=== PATIENT | female | born 1950 | race Caucasian/White ===

== ENCOUNTER 2020-12-17 06:44 | Outpatient (REF) | payer MEDICARE, SELFPAY ==
[2020-12-17 07:20] LABS: MANUAL DIFF FLAG NO
[2020-12-17 07:21] LABS: Basophils Percent Auto 0.6 % (0-2); Eosinophils Absolute Auto 0.1 X10*3/uL (0.0-0.4); Eosinophils Percent Auto 1.8 % (0-4); Hematocrit 40.6 % (37-47); Hemoglobin 13.9 g/dl (12.0-16.0); Imm Gran Abs Auto 0.01 X10*3/uL (0.00-0.03); Imm Gran Pct Auto 0.2 % (0.0-0.4); Lymphocytes Absolute Auto 1.9 X10*3/uL (1.2-4.9); Lymphocytes Percent Auto 38.7 % (20-40); Mean Corpuscular HGB Conc 34.2 g/dl (31.0-35.0); Mean Corpuscular Hemoglobin 34.2 pg (27.0-33.0); Mean Platelet Volume 9.1 fL (9.4-12.3); Monocytes Absolute Auto 0.5 X10*3/uL (0.1-1.2); Monocytes Percent Auto 9.4 % (2-11); Neutrophils Absolute Auto 2.4 X10*3/uL (2.0-8.3); Neutrophils Percent Auto 49.3 % (45-73); Platelet Count 298 X10*3/uL (160-400); Red Blood Count 4.06 X10*6/uL (4.20-5.50); Red Cell Distribution Width 12.5 % (11.0-16.0); White Blood Count 4.9 X10*3/uL (4.8-10.8)
[2020-12-17 08:08] LABS: Alanine Aminotransferase 39 U/L (0-31); Albumin Level 4.3 g/dL (3.5-5.0); Alkaline Phosphatase 94 U/L (39-117); Anion Gap 11 (12-20); Aspartate Amino Transferase 28 U/L (5-31); Bilirubin Total 0.5 mg/dL (0.0-1.0); Blood Urea Nitrogen 13 mg/dL (9-16); Calcium 9.4 mg/dL (8.4-10.2); Carbon Dioxide 26 mmol/L (22-29); Chloride 104 mmol/L (96-108); Cholesterol 234 mg/dL; Estimated Glomerular Filt Rate > 60; Glucose Fasting 101 mg/dL (60-99); HDL Cholesterol 89 mg/dL; LDL Cholesterol Calculated 130 mg/dl; Sodium 137 mmol/L (135-145); Triglycerides 75 mg/dL
[2020-12-17 08:29] LABS: Vitamin D 25-OH Total 50.9 ng/mL (>30)
[2020-12-17 10:41] LABS: Glucose Urine UA NEG (NEG); Leukocyte Esterase Urine TRACE (NEG); Nitrite Urine NEG (NEG); Specific Gravity - Urine 1.015 (1.005-1.025); Urine Blood NEG (NEG); Urine Ketones NEG (NEG); Urine Protein NEG (NEG-TRACE)
[2020-12-17 11:06] LABS: Appearance Urine CLEAR; Color Urine STRAW
[2020-12-17 11:59] LABS: RBC Urine 0 /HPF (0); Renal Epithelial Cells Urine 1+ /LPF; Squamous Epithelial Cell Urine 1+ /LPF; WBC Urine 0-2 /HPF (0-4)
== END 2020-12-17 06:45 | disposition home or self-care (01) ==
LOC: HO.LAB 06:44
PROVIDERS: Visit Provider Internal Medicine
DX: E55.9 Vitamin D deficiency, unspecified (principal); I10 Essential (primary) hypertension; R79.89 Other specified abnormal findings of blood chemistry; R82.994 Hypercalciuria
CPT/HCPCS: 36415; 80053; 80061; 81001; 81003; 82306; 85025

== ENCOUNTER 2021-03-01 12:35 | Outpatient (REF) | payer MEDICARE, SELFPAY ==
--- NOTE | ~2021-03-01 | MM_ITS ---
EXAMINATION: MM SCREENING DIGITAL BREAST TOMOSYNTHESIS, BILATERAL CLINICAL INFORMATION: Screening. Asymptomatic. The lifetime risk of breast cancer based on the Tyrer-Cuzick Model is 4%. COMPARISON: Outside mammography: 12/08/2018, 09/10/2016 ([facility]) TECHNIQUE: Digital breast tomosynthesis is performed in both the craniocaudal and mediolateral oblique views along with computer-aided detection (CAD). Synthesized 2-D images are generated from the tomosynthesis. FINDINGS: There are scattered areas of fibroglandular density (ACR BI-RADS breast composition Category b). There are no significant masses, abnormal calcifications, or other abnormalities. There is a dermal lesion overlying the posterior 7 o'clock position right breast again noted. The axillae are unremarkable. No significant changes. MM/MM tomosynthesis screening BI IMPRESSION: No mammographic evidence of malignancy. ASSESSMENT: BI-RADS 2: Benign. RECOMMENDATION: Routine annual mammography screening. This patient's information was entered into a reminder system with a target due date for their next mammogram.
--- NOTE | ~2021-03-01 | MM_ITS ---
EXAMINATION: BONE DENSITOMETRY CLINICAL INDICATION: Screening for osteoporosis. COMPARISON: Previous BD dated 12/10/2018 and baseline BD dated 06/14/2007. TECHNIQUE: Using a [employer] DXA System (software version: 13.1) manufactured by [employer], dual-energy x-ray absorptiometry was performed of the lumbar spine and left hip. The images are of good technical quality. Summary results are attached. FINDINGS: AP SPINE L1-L4: Current: BMD 0.632 g/cm2, Z-score -2.8, T-score -4.6, osteoporosis, 5.0% decrease from previous, 23.8% decrease from baseline (<5% change is not significant). Prior: BMD 0.665 g/cm2. Baseline: BMD 0.829 g/cm2. LEFT FEMUR, NECK: Current: BMD 0.788 g/cm2, Z-score 0.0, T-score -1.8, osteopenia. Prior: BMD 0.742 g/cm2. Baseline: BMD 0.828 g/cm2. LEFT FEMUR, TOTAL: Current: BMD 0.723 g/cm2, Z-score -0.6, T-score -2.3, osteopenia, 3.6% increase from previous, 9.1% decrease from baseline (<5% change is not significant). Prior: BMD 0.698 g/cm2. Baseline: BMD 0.795 g/cm2. IDENTIFIED RISK FACTORS: Osteoporosis, height loss, family history (parental hip fracture), secondary osteoporosis, menopause, hysterectomy, right oophorectomy. HISTORY OF FRACTURE: None listed. MEDICATIONS: Vitamin D. MM/XR DEXA axial skeleton IMPRESSION: 1. DIAGNOSIS: Osteoporosis based on the lowest T-score value of -4.6 in the lumbar spine applying World Health Organization criteria. 2. 10-YEAR FRACTURE RISK PREDICTION, FRAX: Major osteoporotic fracture (clinical spine, forearm, hip or shoulder) 18.5%. Hip fracture 7.2%. 3. Treatment Recommendations: NOF guidelines recommend consideration for treatment in postmenopausal women and men age 50 and older presenting with the following: -A hip or vertebral (clinical or morphometric) fracture. -T-score less than or equal to -2.5 at the femoral neck or spine after appropriate evaluation to exclude secondary causes. -Low bone mass at the hip or spine and a 10-year fracture probability by FRAX of greater than or equal to 3% for hip fracture or greater than or equal to 20% for major osteoporotic fracture based on the [place] adapted WHO algorithm. 4. Other Recommendations: All treatment decisions require clinical judgment and consideration of individual patient factors, including patient preferences, comorbidities, previous drug use, risk factors not captured in the FRAX model (e.g. frailty, falls, vitamin D deficiency, increased bone turnover, interval significant decline in bone density) and possible under or overestimation of fracture risk by FRAX. Additional medical evaluation for secondary cause of low bone mineral density may be appropriate. FUTURE SCAN RECOMMENDATION: People with diagnosed cases of osteoporosis or at high risk for fracture should have regular bone mineral density tests. For patients eligible for Medicare, routine testing is allowed once every 2 years. The testing frequency can be increased to one year for patients who have rapidly progressing disease, those who are receiving or discontinuing medical therapy to restore bone mass, or have additional risk factors.
== END 2021-03-01 12:36 | disposition home or self-care (01) ==
LOC: HO.MAMMO 12:35
PROVIDERS: Visit Provider Internal Medicine
DX: Z12.31 Encounter for screening mammogram for malignant neoplasm of breast (principal); Z13.820 Encounter for screening for osteoporosis; M81.0 Age-related osteoporosis without current pathological fracture; Z78.0 Asymptomatic menopausal state; Z79.899 Other long term (current) drug therapy; Z98.890 Other specified postprocedural states
CPT/HCPCS: 77063; 77067; 77080

== ENCOUNTER 2021-04-15 06:27 | Day surgery (SDC) | payer MEDICARE, SELFPAY ==
[2021-04-10 08:35] VITALS: BMI 25.2
--- NOTE | 2021-04-12 08:02 | HO.ANESPROP2 ---
Documented by User: Kimberley Walters 04/12/21 08:03 HPI - Anesthesia Eval Consult details Narrative: 70yo F for Colonoscopy PMFSH Past Medical History Medical History GERD (gastroesophageal reflux disease) Hiatal hernia History of kidney stones Osteoporosis Surgical History Surgical History History of blepharoplasty History of esophagogastroduodenoscopy (EGD) History of hammer toe correction Hx of colonoscopy Hx of hysterectomy Social History Social History Do you presently have visiting nurse or other home services: No Patient Tobacco Use Status: Former Tobacco user Use of substances other than those prescribed or required for medical reasons: No Have you been hit, kicked, punched, or otherwise hurt by someone within the past year? If so, by whom?: No Are you DNR?: No Advance Directives: No Advance Directives Information Provided: No Advance Directives on File: No Recently lost weight without trying: No Eating poorly because of decreased appetite: No Nutrition Risks: No Nutritional Risk Patient : No Meds Allergies Allergy/AdvReac Type Severity Reaction Status Date / Time tetracycline [TETRACYCLINE] Allergy Unknown Rash, itchy Unverified 04/10/21 08:24 epinephrine Allergy Unknown heart Uncoded 04/10/21 08:24 palpitations Home Medications Medication Instructions Recorded Confirmed Last Taken Type Lactobacillus acidophilus 10,000 mmu cells PO DAILY 04/10/21 04/10/21 Unknown History [Probiotic] cholecalciferol (vitamin D3) 25 mcg PO DAILY 04/10/21 04/10/21 Unknown History [Vitamin D3] glucosamine-chondroitin ml PO 04/10/21 04/10/21 Unknown History hydrochlorothiazide 1.5 tab PO DAILY 04/10/21 04/10/21 Unknown History ibuprofen [Motrin IB] 400 mg PO Q6H PRN 04/10/21 04/10/21 Unknown History vitamin K2 100 mcg PO DAILY 04/10/21 04/10/21 Unknown History Exam Exam Date and Time: April 12, 2021 0802 Height,Weight and Vital Signs: Height 5 ft 3.75 in Weight 66.224 kg Assessment and Plan Assessment Anesthesia Assessment: Chart Reviewed Documented by User: Margaret Ram 04/15/21 07:26 PMFSH Past Medical History Medical History GERD (gastroesophageal reflux disease) Hiatal hernia History of kidney stones Osteoporosis Family History Family history of problems with anesthesia: No Surgical History Surgical History History of blepharoplasty History of esophagogastroduodenoscopy (EGD) History of hammer toe correction Hx of colonoscopy Hx of hysterectomy History of Problems with Anesthesia: No Social History Social History Do you presently have visiting nurse or other home services: No Patient Tobacco Use Status: Former Tobacco user Use of substances other than those prescribed or required for medical reasons: No Have you been hit, kicked, punched, or otherwise hurt by someone within the past year? If so, by whom?: No Are you DNR?: No Advance Directives: No Advance Directives Information Provided: No Advance Directives on File: No Recently lost weight without trying: No Eating poorly because of decreased appetite: No Nutrition Risks: No Nutritional Risk Patient : No Meds Allergies Allergy/AdvReac Type Severity Reaction Status Date / Time tetracycline [TETRACYCLINE] Allergy Unknown Rash, itchy Unverified 04/10/21 08:24 epinephrine Allergy Unknown heart Uncoded 04/10/21 08:24 palpitations Home Medications Medication Instructions Recorded Confirmed Last Taken Type Lactobacillus acidophilus 10,000 mmu cells PO DAILY 04/10/21 04/10/21 Unknown History [Probiotic] cholecalciferol (vitamin D3) 25 mcg PO DAILY 04/10/21 04/10/21 Unknown History [Vitamin D3] glucosamine-chondroitin ml PO 04/10/21 04/10/21 Unknown History hydrochlorothiazide 1.5 tab PO DAILY 04/10/21 04/10/21 Unknown History ibuprofen [Motrin IB] 400 mg PO Q6H PRN 04/10/21 04/10/21 Unknown History vitamin K2 100 mcg PO DAILY 04/10/21 04/10/21 Unknown History Exam Height,Weight and Vital Signs: Vital Signs Temp Pulse Resp BP Pulse Ox 04/15/21 07:11 97.7 F 78 18 146/92 H 97 Airway Mallampati Class: II TM Dist: >3cm Neck ROM: Full Heart: RRR Lungs: CTAB Assessment and Plan Assessment Anesthesia Assessment: Anesthesia Plan Discussed and Chart Reviewed Final Anesthetic Review NPO: Yes ASA Class: II Final Preanesthetic Review: No Changes in Pt Med Stat, Meds/Allgs Chart Reviewed, Consent Obtained/Reviewed and Anes Risks/Benef Reviewed Patient Risk: Low Procedure Risk: Low Assessment/Block/Sedation in SS: Assess/Block/Sedation-SS Anesthetic Plan Anesthetic Plan: MAC: Disposition: Standard PACU
[2021-04-15 07:11] VITALS: BP 146/92; PULSE 78; RESP 18; TEMP 36.5; O2SAT 97
[2021-04-15] MEDS: Lactated Ringers 1,000 ML 100 ML IVCONT (07:31)
--- NOTE | 2021-04-15 08:22 | P.BOP_ITS ---
Brief Operative Note Date of Service: 04/15/21 Pre-op diagnosis: Screening Post-op diagnosis: other (Colon polyps, Diverticulosis) Procedure: Colonoscopy to the cecum and TI with snare polypectomy, and biopsy and removal of polyp Surgeon: Dany Willis Anesthesia: MAC Was an [employer] used for this Procedure?: No Estimated blood loss (mL): 3.0 Pathology: other (A. Cecal polyps) Condition: stable Disposition: PACU
[2021-04-15 08:23] VITALS: BP 133/59; PULSE 63; RESP 16; TEMP 36.2; O2SAT 100
[2021-04-15 08:36] VITALS: BP 140/70; PULSE 65; RESP 18; O2SAT 99
--- NOTE | 2021-04-15 08:58 | OP_ITS ---
SURGEON: Dany Willis MD INDICATIONS: The patient presents for evaluation of colorectal cancer screening and personal history of tubular adenoma of the colon. Full consent has been obtained from her for this, including risks of bleeding and perforation. PREOPERATIVE DIAGNOSIS: POSTOPERATIVE DIAGNOSIS: PROCEDURE PERFORMED: ESTIMATED BLOOD LOSS: COMPLICATIONS: ANESTHESIA: Preop medication used, monitored anesthesia care. ASSISTANTS: SPECIMENS: PREOPERATIVE DIAGNOSES: Colorectal cancer screening and personal history of tubular adenoma of the colon. POSTOPERATIVE DIAGNOSES: Colorectal cancer screening and personal history of tubular adenoma of the colon, colon polyps, diverticulosis, and internal hemorrhoids. PROCEDURES PERFORMED: Colonoscopy to cecum and terminal ileum with snare polypectomy, and biopsy and removal of polyp. DESCRIPTION OF PROCEDURE: The patient was placed in the left lateral decubitus position. The digital rectal exam revealed no abnormalities. The Olympus video pediatric colonoscope was entered into the rectum and advanced to the cecum with the assistance of abdominal wall pressure. Once in the cecum, I did identify cecal pouch with appendiceal orifice. The terminal ileum was cannulated and appeared normal. The scope was withdrawn back in the colon. The ileocecal valve appeared normal. In the cecum was an approximately 10 mm polyp, which was snared and recovered by suction. The polypectomy site appeared clean, without any sign of residual polyp nor bleeding. Also, in the cecum was an approximately 3 mm polyp, which was biopsied and completely removed with cold biopsy forceps and placed in the same container. The remainder of the cecum appeared normal. The scope was slowly withdrawn assessing all mucosal surfaces carefully. Preparation was excellent. I did not visualize any other polyps, colitis, or angiodysplasia. There was moderate amount of sigmoid diverticulosis. In the rectum, scope was retroflexed visualizing internal hemorrhoids, but no other pathology. The rectal mucosa appeared normal. The scope was straightened and withdrawn from the patient. She tolerated the procedure well and was returned to the recovery area in stable condition. IMPRESSION: 1. Colon polyps, status post snare polypectomy, and biopsy removal. 2. Diverticulosis. 3. Internal hemorrhoids. PLAN: The results of the pathology will be checked. I would recommend a repeat colonoscopy in 5 years. She was advised not to use any aspirin and NSAIDs for 1 week. Dany Willis MD RMW/MODL / [id number]
== END 2021-04-15 09:18 | disposition home or self-care (01) ==
PROVIDERS: PCP Internal Medicine; Visit Provider Internal Medicine
PROC: 0DJD8ZZ Inspection of Lower Intestinal Tract, Via Natural or Artificial Opening Endoscopic (ICD-10-PCS; CPT 45378; principal; 2021-04-15 07:30)
DX: Z12.11 Encounter for screening for malignant neoplasm of colon (principal); Z86.010 Personal history of colon polyps; D12.0 Benign neoplasm of cecum; K57.30 Diverticulosis of large intestine without perforation or abscess without bleeding; K64.8 Other hemorrhoids; K21.9 Gastro-esophageal reflux disease without esophagitis; K44.9 Diaphragmatic hernia without obstruction or gangrene; M81.0 Age-related osteoporosis without current pathological fracture; Z87.442 Personal history of urinary calculi; Z87.891 Personal history of nicotine dependence; Z79.899 Other long term (current) drug therapy; Z79.1 Long term (current) use of non-steroidal anti-inflammatories (NSAID)
CPT/HCPCS: 45385; 45380; 88305

== ENCOUNTER 2021-07-25 10:08 | Outpatient (REF) | payer MEDICARE, SELFPAY ==
[2021-07-25 11:05] LABS: Appearance Urine CLEAR; Color Urine YELLOW; Glucose Urine UA NEG (NEG); Leukocyte Esterase Urine NEG (NEG); Nitrite Urine NEG (NEG); Specific Gravity - Urine <= 1.005 (1.005-1.025); Urine Blood NEG (NEG); Urine Ketones NEG (NEG); Urine Protein NEG (NEG-TRACE)
[2021-07-25 11:15] LABS: RBC Urine 0 /HPF (0); Squamous Epithelial Cell Urine TRACE /LPF; WBC Urine 0-2 /HPF (0-4)
== END 2021-07-25 10:09 | disposition home or self-care (01) ==
LOC: HO.LNP 10:08
PROVIDERS: Visit Provider Internal Medicine
DX: N30.00 Acute cystitis without hematuria (principal)
CPT/HCPCS: 81001; 87086

== ENCOUNTER 2021-09-26 07:36 | Outpatient (REF) | payer MEDICARE, SELFPAY ==
--- NOTE | ~2021-09-26 | US_ITS ---
EXAMINATION: US RIGHT EXTREMITY NONVASCULAR CLINICAL INFORMATION: Question of a right Gordon's cyst. COMPARISON: None TECHNIQUE: Ultrasound of the right popliteal fossa was performed. FINDINGS: The popliteal fossa appears normal. The popliteal artery and vein are unremarkable. No Gordon's cyst is seen. US/US extremity nonvascular IMPRESSION: A Gordon's cyst is not detected.
== END 2021-09-26 07:37 | disposition home or self-care (01) ==
LOC: HO.US 07:36
PROVIDERS: PCP Internal Medicine; Visit Provider Internal Medicine
DX: M71.21 Synovial cyst of popliteal space [Baker], right knee (principal)
CPT/HCPCS: 76882

== ENCOUNTER 2021-10-24 08:08 | Outpatient (REF) | payer MEDICARE, SELFPAY ==
--- NOTE | ~2021-10-24 | FL_ITS ---
EXAMINATION: FL FLUOROSCOPY UPPER GI WITH AIR CLINICAL INFORMATION: Peptic ulcer disease. COMPARISON: CT abdomen and pelvis 09/21/2018. TECHNIQUE: Air-contrast upper GI series was performed using fluoroscopic evaluation in addition to multiple fluoroscopic spot views. The patient was imaged both upright and prone and using thick barium sulfate along with effervescent granules. FINDINGS: Following intravenous administration of thick barium and effervescent granules, there is normal propagation of the bolus from the oral cavity through the pharynx, esophagus and into the stomach without any evidence of obstruction, narrowing or stricture. Mild prominence of the cricoesophageal splinter is noted but causes no obstruction. There is no intrinsic mass or extrinsic compression. On placing the patient supine and prone lying, the course, caliber and peristalsis of the stomach and duodenal bulb are normal. There are moderate gastric secretions seen. There is mild gastroesophageal reflux into the mid esophagus. The mucosal pattern of the stomach and the duodenum is normal. There is no evidence for gastric ulceration. There are mild hypertrophic mucosal cells visualized in the body of the stomach. FLUOROSCOPY TIME: 2.1 minutes DOSE AREA PRODUCT: 24.55 uGy-m2 (microgray-meter squared) FL/FL upper GI w air IMPRESSION: Increased gastric secretions with scattered hypertrophic mucosal cells in the stomach but no gastric erosive changes or ulcerations seen. Mild gastroesophageal reflux without hiatal hernia.
== END 2021-10-24 08:09 | disposition home or self-care (01) ==
LOC: HO.XRAY 08:08
PROVIDERS: Visit Provider Internal Medicine
DX: K27.9 Peptic ulcer, site unspecified, unspecified as acute or chronic, without hemorrhage or perforation (principal); M71.21 Synovial cyst of popliteal space [Baker], right knee
CPT/HCPCS: 74246

== ENCOUNTER 2021-12-26 07:45 | Outpatient (REF) | payer MEDICARE, SELFPAY ==
[2021-12-26 10:57] LABS: MANUAL DIFF FLAG NO
[2021-12-26 11:16] LABS: Basophils Percent Auto 0.8 % (0-2); Eosinophils Absolute Auto 0.1 X10*3/uL (0.0-0.4); Eosinophils Percent Auto 1.6 % (0-4); Hematocrit 38.9 % (37.0-47.0); Hemoglobin 13.2 g/dl (12.0-16.0); Lymphocytes Percent Auto 41.9 % (20-40); Mean Corpuscular HGB Conc 33.9 g/dl (31.0-35.0); Mean Corpuscular Hemoglobin 34.2 pg (27.0-33.0); Mean Corpuscular Volume 100.8 fL (80.0-98.0); Mean Platelet Volume 9.8 fL (9.4-12.3); Monocytes Absolute Auto 0.5 X10*3/uL (0.1-1.2); Monocytes Percent Auto 9.7 % (2-11); Neutrophils Absolute Auto 2.2 x10*3/uL (2.0-8.3); Platelet Count 288 X10*3/uL (160-400); Red Blood Count 3.86 X10*6/uL (4.20-5.50); Red Cell Distribution Width 12.6 % (11.0-16.0); White Blood Count 4.9 X10*3/uL (4.8-10.8)
[2021-12-26 11:27] LABS: Appearance Urine HAZY; Color Urine YELLOW; Glucose Urine UA NEG (NEG); Leukocyte Esterase Urine 2+ (NEG); Nitrite Urine NEG (NEG); Specific Gravity - Urine 1.015 (1.005-1.025); Urine Blood NEG (NEG); Urine Ketones NEG (NEG); Urine Protein NEG (NEG-TRACE)
[2021-12-26 11:30] LABS: Alanine Aminotransferase 34 U/L (0-31); Alkaline Phosphatase 98 U/L (39-117); Anion Gap 11 (12-20); Aspartate Amino Transferase 28 U/L (5-31); Bilirubin Total 0.4 mg/dL (0.0-1.0); Blood Urea Nitrogen 16 mg/dL (9-16); Calcium 9.5 mg/dL (8.4-10.2); Carbon Dioxide 28 mmol/L (22-29); Chloride 102 mmol/L (96-108); Cholesterol 248 mg/dL; Estimated Glomerular Filt Rate > 60; Glucose Random 86 mg/dL (60-115); HDL Cholesterol 80 mg/dL; LDL Cholesterol Calculated 154 mg/dl; Potassium 4.2 mmol/L (3.3-5.1); Sodium 137 mmol/L (135-145); Total Protein 6.6 g/dL (6.5-8.0); Triglycerides 71 mg/dL
[2021-12-26 11:53] LABS: Vitamin D 25-OH Total 50.6 ng/mL (>30)
[2021-12-26 12:15] LABS: Bacteria Urine 2+ /LPF; Mucus Urine 2+ /LPF; RBC Urine 0 /HPF (0); Squamous Epithelial Cell Urine 2+ /LPF
== END 2021-12-26 07:46 | disposition home or self-care (01) ==
LOC: HO.LNP 07:45
PROVIDERS: Visit Provider Internal Medicine
DX: I10 Essential (primary) hypertension (principal); R79.89 Other specified abnormal findings of blood chemistry; E55.9 Vitamin D deficiency, unspecified
CPT/HCPCS: 80053; 80061; 81001; 81003; 82306; 85025

== ENCOUNTER 2022-09-22 10:43 | Outpatient (REF) | payer MEDICARE, SELFPAY ==
--- NOTE | ~2022-09-22 | XR_ITS ---
EXAMINATION: XR CHEST CLINICAL INFORMATION: Reflux esophagitis COMPARISON: Previous chest x-ray November 2016 TECHNIQUE: 2 views of the chest were obtained. FINDINGS: The cardiac and mediastinal contours are stable. The lungs are clear. No pleural effusion or pneumothorax. Scoliosis and degenerative changes of the thoracic spine. XR/XR chest 2V IMPRESSION: No evidence for acute disease in the chest. Scoliosis and degenerative changes of the thoracic spine similar to previous exam.
== END 2022-09-22 10:44 | disposition home or self-care (01) ==
LOC: HO.XRAY 10:43
PROVIDERS: Visit Provider Internal Medicine
DX: K21.00 Gastro-esophageal reflux disease with esophagitis, without bleeding (principal)
CPT/HCPCS: 71046

== ENCOUNTER 2023-01-01 11:02 | Outpatient (REF) | payer MEDICARE, SELFPAY ==
[2023-01-01 11:12] LABS: MANUAL DIFF FLAG NO
[2023-01-01 12:35] LABS: Basophils Percent Auto 0.8 % (0-2); Eosinophils Percent Auto 0.8 % (0-4); Hematocrit 37.6 % (37.0-47.0); Imm Gran Abs Auto 0.01 X10*3/uL (0.00-0.03); Imm Gran Pct Auto 0.2 % (0.0-0.4); Lymphocytes Absolute Auto 1.5 X10*3/uL (1.2-4.9); Lymphocytes Percent Auto 28.5 % (20-40); Mean Corpuscular HGB Conc 34.6 g/dl (31.0-35.0); Mean Corpuscular Hemoglobin 33.9 pg (27.0-33.0); Mean Corpuscular Volume 98.2 fL (80.0-98.0); Mean Platelet Volume 9.5 fL (9.4-12.3); Monocytes Absolute Auto 0.5 X10*3/uL (0.1-1.2); Monocytes Percent Auto 9.7 % (2-11); Neutrophils Absolute Auto 3.2 x10*3/uL (2.0-8.3); Platelet Count 319 X10*3/uL (160-400); Red Blood Count 3.83 X10*6/uL (4.20-5.50); Red Cell Distribution Width 11.8 % (11.0-16.0); White Blood Count 5.3 X10*3/uL (4.8-10.8)
[2023-01-01 12:55] LABS: Alanine Aminotransferase 29 U/L (0-31); Albumin Level 4.1 g/dL (3.5-5.0); Alkaline Phosphatase 87 U/L (39-117); Anion Gap 12 (12-20); Aspartate Amino Transferase 24 U/L (5-31); Bilirubin Total 0.6 mg/dL (0.0-1.0); Blood Urea Nitrogen 11 mg/dL (9-16); Calcium 9.4 mg/dL (8.4-10.2); Carbon Dioxide 26 mmol/L (22-29); Chloride 94 mmol/L (96-108); Cholesterol 259 mg/dL; Estimated Glomerular Filt Rate > 60; Glucose Random 90 mg/dL (60-115); HDL Cholesterol 82 mg/dL; LDL Cholesterol Calculated 163 mg/dl; Potassium 4.3 mmol/L (3.3-5.1); Sodium 128 mmol/L (135-145); Total Protein 6.6 g/dL (6.5-8.0); Triglycerides 71 mg/dL
[2023-01-01 13:15] LABS: Vitamin D 25-OH Total 55.7 ng/mL (>30)
== END 2023-01-01 11:03 | disposition home or self-care (01) ==
LOC: HO.LNP 11:02
PROVIDERS: Visit Provider Internal Medicine
DX: I10 Essential (primary) hypertension (principal); R79.89 Other specified abnormal findings of blood chemistry; E55.9 Vitamin D deficiency, unspecified
CPT/HCPCS: 80053; 80061; 81001; 82306; 85025

== ENCOUNTER 2023-01-08 11:39 | Outpatient (REF) | payer MEDICARE, SELFPAY | END 2023-01-08 11:40 | disposition home or self-care (01) | LOC: HO.XRAY 11:39 | PROVIDERS: PCP Internal Medicine; Visit Provider Internal Medicine | DX: Z13.89 Encounter for screening for other disorder (principal) ==

== ENCOUNTER 2023-01-08 15:55 | Outpatient (REF) | payer MEDICARE, SELFPAY ==
[2023-01-08 16:30] LABS: Appearance Urine Clear; Color Urine Yellow; Glucose Urine UA Negative (Negative); Leukocyte Esterase Urine Negative (Negative); Nitrite Urine Negative (Negative); PH 7.5 (5.0-9.0); Urine Blood Negative (Negative); Urine Ketones Negative (Negative); Urine Protein Negative (Neg-Trace)
== END 2023-01-08 15:56 | disposition home or self-care (01) ==
LOC: HO.LNP 15:55
PROVIDERS: Visit Provider Internal Medicine
DX: I10 Essential (primary) hypertension (principal)
CPT/HCPCS: 81003

== ENCOUNTER 2023-01-14 10:02 | Outpatient (REF) | payer MEDICARE, SELFPAY ==
--- NOTE | ~2023-01-14 | XR_ITS ---
EXAMINATION: XR BILATERAL HIPS WITH AP PELVIS CLINICAL INFORMATION: Hip pain. COMPARISON: None TECHNIQUE: AP view of the pelvis and single views of each hip were obtained. FINDINGS: The bones and soft tissues are normal. No fracture. Sacroiliac and hip joints are normal. There is mild degenerative periarticular spurring along the left hip joint. Pubic symphysis is normal. No abnormal soft tissue calcifications. XR/XR hips TREVOR min 3V IMPRESSION: Mild degenerative spurring along the left hip joint. No visible acute fracture or dislocation seen.
--- NOTE | ~2023-01-14 | FL_ITS ---
EXAMINATION: FL BARIUM SWALLOW CLINICAL INFORMATION: Cough. History of hiatal hernia. COMPARISON: 10/24/2021. TECHNIQUE: Barium swallow examination is performed using fluoroscopic evaluation in addition to multiple fluoroscopic spot views. The patient is imaged both upright and prone and using both thick and thin sulfate along with half-inch diameter barium tablet. Fluoroscopy time: 1.8 minutes DAP: 2.206 Gycm2 Images: 24 FINDINGS: There is normal apposition of the vocal cords while saying E. There is normal elevation of the soft palate while saying candy. No nasopharyngeal reflux or tracheal aspiration identified. There is some mild retention of barium within the left vallecula but no evidence of significant cricopharyngeal hypertrophy or Zenker's diverticulum. There is a minimal sliding hiatal hernia present. No gastroesophageal reflux was elicited during the study, including with water siphon test. No persistent stricture or mucosal abnormality identified within the esophagus. FL/FL barium swallow IMPRESSION: Essentially normal esophagram.
== END 2023-01-14 10:03 | disposition home or self-care (01) ==
LOC: HO.XRAY 10:02
PROVIDERS: Absent Provider Internal Medicine; PCP Internal Medicine; Visit Provider Otolaryngology
DX: R13.10 Dysphagia, unspecified (principal); M25.551 Pain in right hip; M25.552 Pain in left hip
CPT/HCPCS: 73522; 74220

== ENCOUNTER 2023-02-03 15:49 | Outpatient (REF) | payer MEDICARE, SELFPAY ==
[2023-02-03 17:03] LABS: Sodium 130 mmol/L (135-145)
== END 2023-02-03 15:50 | disposition home or self-care (01) ==
LOC: HO.LNP 15:49
PROVIDERS: Visit Provider Internal Medicine
DX: E87.1 Hypo-osmolality and hyponatremia (principal)
CPT/HCPCS: 84295

== ENCOUNTER → 2023-07-10 14:15 | Outpatient (BNV) | payer MEDICARE, SELFPAY | PROVIDERS: PCP Internal Medicine; Visit Provider Radiology Diagnostic Radiology | DX: Z12.31 Encounter for screening mammogram for malignant neoplasm of breast (principal) | CPT/HCPCS: 77063; 77067; 77080 ==

== ENCOUNTER 2023-07-10 14:16 | Outpatient (REF) | payer MEDICARE, SELFPAY ==
--- NOTE | ~2023-07-10 | MM_ITS ---
EXAMINATION: BONE DENSITOMETRY CLINICAL INDICATION: Age-related osteoporosis without current pathological fracture. COMPARISON: Previous BD dated 03/01/2021 and baseline BD dated 06/14/2007. TECHNIQUE: Using a [employer] DXA System (software version: 13.1) manufactured by [employer], dual-energy x-ray absorptiometry was performed of the lumbar spine and left hip. The images are of good technical quality. Summary results are attached. FINDINGS: LEFT FEMUR, NECK: Current: BMD 0.752 g/cm2, Z-score -0.1, T-score -2.1, osteopenia. Prior: BMD 0.788 g/cm2. Baseline: BMD 0.828 g/cm2. LEFT FEMUR, TOTAL: Current: BMD 0.709 g/cm2, Z-score -0.6, T-score -2.4, osteopenia, 1.9% decrease from previous, 10.8% decrease from baseline (<5% change is not significant). Prior: BMD 0.723 g/cm2. Baseline: BMD 0.795 g/cm2. AP SPINE L1-L4: Current: BMD 0.610 g/cm2, Z-score -3.0, T-score -4.8, osteoporosis, 3.5% decrease from previous, 26.4% decrease from baseline (<5% change is not significant). Prior: BMD 0.632 g/cm2. Baseline: BMD 0.829 g/cm2. IDENTIFIED RISK FACTORS: Osteoporosis, right oophorectomy, height loss, family history (parental hip fracture), hysterectomy. Early menopause, secondary osteoporosis. HISTORY OF FRACTURE: None listed. MEDICATIONS: Vitamin D. MM/XR DEXA axial skeleton IMPRESSION: 1. DIAGNOSIS: Osteoporosis based on the lowest T-score value of -4.8 in the lumbar spine applying World Health Organization criteria. 2. 10-YEAR FRACTURE RISK PREDICTION, FRAX: According to the guidelines, FRAX calculation should only be performed on patients in the osteopenia bone density category. Therefore, FRAX was not performed on this patient. 3. Treatment Recommendations: NOF guidelines recommend consideration for treatment in postmenopausal women and men age 50 and older presenting with the following: -A hip or vertebral (clinical or morphometric) fracture. -T-score less than or equal to -2.5 at the femoral neck or spine after appropriate evaluation to exclude secondary causes. -Low bone mass at the hip or spine and a 10-year fracture probability by FRAX of greater than or equal to 3% for hip fracture or greater than or equal to 20% for major osteoporotic fracture based on the [place] adapted WHO algorithm. 4. Other Recommendations: All treatment decisions require clinical judgment and consideration of individual patient factors, including patient preferences, comorbidities, previous drug use, risk factors not captured in the FRAX model (e.g. frailty, falls, vitamin D deficiency, increased bone turnover, interval significant decline in bone density) and possible under or overestimation of fracture risk by FRAX. Additional medical evaluation for secondary cause of low bone mineral density may be appropriate. FUTURE SCAN RECOMMENDATION: People with diagnosed cases of osteoporosis or at high risk for fracture should have regular bone mineral density tests. For patients eligible for Medicare, routine testing is allowed once every 2 years. The testing frequency can be increased to one year for patients who have rapidly progressing disease, those who are receiving or discontinuing medical therapy to restore bone mass, or have additional risk factors.
--- NOTE | ~2023-07-10 | MM_ITS ---
EXAMINATION: MM SCREENING DIGITAL BREAST TOMOSYNTHESIS, BILATERAL CLINICAL INFORMATION: Screening. Asymptomatic. COMPARISON: Mammography: This study is compared with prior exams dating back to 2016. TECHNIQUE: Digital breast tomosynthesis is performed in both the craniocaudal and mediolateral oblique views along with computer-aided detection (CAD). Synthesized 2D images are generated from the tomosynthesis. FINDINGS: There are scattered areas of fibroglandular density (ACR BI-RADS breast composition Category b). There are no significant masses, abnormal calcifications, or other abnormalities. MM/MM tomosynthesis screening BI IMPRESSION: No mammographic evidence of malignancy. ASSESSMENT: BI-RADS BI-RADS 1 - Negative RECOMMENDATION: Routine annual mammography screening. 1 year F/U This examination should not preclude the clinical evaluation of a suspicious palpable abnormality. This patient's information was entered into a reminder system with a target due date for their next mammogram.
== END 2023-07-10 14:17 | disposition home or self-care (01) ==
LOC: HO.MAMMO 14:16
PROVIDERS: PCP Internal Medicine; Visit Provider Internal Medicine
DX: Z12.31 Encounter for screening mammogram for malignant neoplasm of breast (principal); Z13.820 Encounter for screening for osteoporosis; Z78.0 Asymptomatic menopausal state; M81.0 Age-related osteoporosis without current pathological fracture
CPT/HCPCS: 77063; 77067; 77080

== ENCOUNTER 2024-01-04 10:46 | Outpatient (REF) | payer MEDICARE, SELFPAY ==
[2024-01-04 10:51] LABS: MANUAL DIFF FLAG NO
[2024-01-04 11:58] LABS: Basophils Percent Auto 0.8 % (0-2); Eosinophils Absolute Auto 0.1 X10*3/uL (0.0-0.4); Hemoglobin 13.2 g/dl (12.0-16.0); Imm Gran Abs Auto 0.01 X10*3/uL (0.00-0.03); Imm Gran Pct Auto 0.2 % (0.0-0.4); Lymphocytes Absolute Auto 2.1 X10*3/uL (1.2-4.9); Lymphocytes Percent Auto 42.1 % (20-40); Mean Corpuscular HGB Conc 34.7 g/dl (31.0-35.0); Mean Corpuscular Hemoglobin 33.5 pg (27.0-33.0); Mean Corpuscular Volume 96.4 fL (80.0-98.0); Mean Platelet Volume 9.6 fL (9.4-12.3); Monocytes Absolute Auto 0.5 X10*3/uL (0.1-1.2); Monocytes Percent Auto 9.1 % (2-11); Neutrophils Absolute Auto 2.3 x10*3/uL (2.0-8.3); Neutrophils Percent Auto 45.8 % (45-73); Platelet Count 294 X10*3/uL (160-400); Red Blood Count 3.94 X10*6/uL (4.20-5.50); Red Cell Distribution Width 12.8 % (11.0-16.0)
[2024-01-04 11:59] LABS: Appearance Urine Clear; Color Urine Yellow; Glucose Urine UA Negative (Negative); Leukocyte Esterase Urine Negative (Negative); Nitrite Urine Negative (Negative); PH 6.5 (5.0-9.0); Specific Gravity - Urine 1.015 (1.005-1.025); Urine Blood Negative (Negative); Urine Ketones Trace mg/dL (Negative); Urine Protein Negative (Neg-Trace)
[2024-01-04 12:03] LABS: Bacteria Urine None Seen (None Seen); Hyaline Casts Urine 0-2 /LPF (0-2); RBC Urine 0-2 /HPF (0-2); Squamous Epithelial Cell Urine 0-2 /HPF (0-2); WBC Urine 0-5 /HPF (0-5)
[2024-01-04 12:16] LABS: Alanine Aminotransferase 27 U/L (0-31); Albumin Level 4.2 g/dL (3.5-5.0); Alkaline Phosphatase 85 U/L (39-117); Anion Gap 10 (12-20); Aspartate Amino Transferase 19 U/L (5-31); Bilirubin Direct 0.2 mg/dL (0.0-0.5); Bilirubin Total 0.5 mg/dL (0.0-1.0); Blood Urea Nitrogen 15 mg/dL (9-16); Calcium 9.6 mg/dL (8.4-10.2); Carbon Dioxide 26 mmol/L (22-29); Chloride 99 mmol/L (96-108); Cholesterol 264 mg/dL (<200); Estimated Glomerular Filt Rate > 60; Glucose Fasting 90 mg/dL (60-99); HDL Cholesterol 82 mg/dL (>40); LDL Cholesterol Calculated 167 mg/dL (<100); Potassium 3.7 mmol/L (3.3-5.1); Sodium 131 mmol/L (135-145); Total Protein 7.2 g/dL (6.5-8.0); Triglycerides 77 mg/dL (<150)
== END 2024-01-04 10:47 | disposition home or self-care (01) ==
LOC: HO.LNP 10:46
PROVIDERS: Visit Provider Internal Medicine
DX: I10 Essential (primary) hypertension (principal); R79.89 Other specified abnormal findings of blood chemistry; E55.9 Vitamin D deficiency, unspecified
CPT/HCPCS: 80053; 80061; 80076; 81001; 82248; 85025

== ENCOUNTER 2024-04-12 11:40 | Outpatient (REF) | payer MEDICARE, SELFPAY ==
[2024-04-12 12:36] LABS: Sodium 131 mmol/L (135-145)
== END 2024-04-12 11:41 | disposition home or self-care (01) ==
LOC: HO.LNP 11:40
PROVIDERS: Visit Provider Internal Medicine
DX: E78.1 Pure hyperglyceridemia (principal)
CPT/HCPCS: 84295

== ENCOUNTER 2024-06-20 10:32 | Outpatient (REF) | payer MEDICARE, SELFPAY ==
[2024-06-20 10:51] LABS: Sodium 136 mmol/L (135-145)
== END 2024-06-20 10:33 | disposition home or self-care (01) ==
LOC: HO.LNP 10:32
PROVIDERS: Visit Provider Internal Medicine
DX: E87.1 Hypo-osmolality and hyponatremia (principal)
CPT/HCPCS: 84295

== ENCOUNTER 2024-06-24 10:22 | Outpatient (REF) | payer MEDICARE, SELFPAY ==
[2024-06-24 10:46] LABS: Appearance Urine Clear; Color Urine Yellow; Glucose Urine UA Negative (Negative); Leukocyte Esterase Urine Trace (Negative); Nitrite Urine Negative (Negative); UMIC TRIGGER UA YES; Urine Blood Negative (Negative); Urine Ketones Negative (Negative); Urine Protein Negative (Neg-Trace)
[2024-06-24 10:52] LABS: Bacteria Urine None Seen (None Seen); Hyaline Casts Urine 0-2 /LPF (0-2); RBC Urine 0-2 /HPF (0-2); Squamous Epithelial Cell Urine 0-2 /HPF (0-2); WBC Urine 0-5 /HPF (0-5)
== END 2024-06-24 10:23 | disposition home or self-care (01) ==
LOC: HO.LNP 10:22
PROVIDERS: Visit Provider Internal Medicine
DX: R30.0 Dysuria (principal)
CPT/HCPCS: 81001; 87086

== ENCOUNTER 2024-06-30 15:14 | Outpatient (REF) | payer MEDICARE, SELFPAY ==
[2024-06-30 15:19] LABS: MANUAL DIFF FLAG NO
[2024-06-30 15:26] LABS: Basophils Percent Auto 0.2 % (0-2); Eosinophils Percent Auto 0.2 % (0-4); Hematocrit 39.9 % (37.0-47.0); Hemoglobin 13.9 g/dl (12.0-16.0); Imm Gran Abs Auto 0.03 X10*3/uL (0.00-0.03); Imm Gran Pct Auto 0.3 % (0.0-0.4); Lymphocytes Absolute Auto 0.9 X10*3/uL (1.2-4.9); Lymphocytes Percent Auto 9.4 % (20-40); Mean Corpuscular HGB Conc 34.8 g/dl (31.0-35.0); Mean Corpuscular Hemoglobin 34.3 pg (27.0-33.0); Mean Corpuscular Volume 98.5 fL (80.0-98.0); Mean Platelet Volume 10.1 fL (9.4-12.3); Monocytes Absolute Auto 0.7 X10*3/uL (0.1-1.2); Monocytes Percent Auto 7.5 % (2-11); Neutrophils Absolute Auto 7.8 x10*3/uL (2.0-8.3); Neutrophils Percent Auto 82.4 % (45-73); Platelet Count 259 X10*3/uL (160-400); Red Blood Count 4.05 X10*6/uL (4.20-5.50); Red Cell Distribution Width 12.5 % (11.0-16.0); White Blood Count 9.4 X10*3/uL (4.8-10.8)
[2024-06-30 15:39] LABS: Blood Urea Nitrogen 10 mg/dL (9-16); Estimated Glomerular Filt Rate > 60
== END 2024-06-30 15:15 | disposition home or self-care (01) ==
LOC: HO.LNP 15:14
PROVIDERS: Visit Provider Internal Medicine
DX: Z01.812 Encounter for preprocedural laboratory examination (principal); K57.92 Diverticulitis of intestine, part unspecified, without perforation or abscess without bleeding
CPT/HCPCS: 82565; 84520; 85025

== ENCOUNTER 2024-07-22 10:58 | Outpatient (REF) | payer MEDICARE, SELFPAY ==
[2024-07-22 11:31] LABS: Sodium 130 mmol/L (135-145)
== END 2024-07-22 10:59 | disposition home or self-care (01) ==
LOC: HO.LNP 10:58
PROVIDERS: Visit Provider Internal Medicine
DX: E87.1 Hypo-osmolality and hyponatremia (principal)
CPT/HCPCS: 84295

== ENCOUNTER 2024-09-01 11:52 | Outpatient (REF) | payer MEDICARE, SELFPAY ==
[2024-09-01 12:03] LABS: Sodium 137 mmol/L (135-145)
== END 2024-09-01 11:53 | disposition home or self-care (01) ==
LOC: HO.LNP 11:52
PROVIDERS: Visit Provider Internal Medicine
DX: E87.1 Hypo-osmolality and hyponatremia (principal)
CPT/HCPCS: 84295

== ENCOUNTER 2024-09-15 13:35 | Outpatient (AMB) | payer MEDICARE, SELFPAY ==
--- NOTE | 2024-09-15 13:40 | HO.NEPHOV_ITS ---
Vital Signs 09/15/24 13:46 Height 5 ft 3 in Weight 143 lb 2 oz BMI 25.4 BP 160/90 H Blood Pressure Location Lt brachial Position Sitting Pulse 98 Pulse Source Pulse Oximeter Pulse Oximetry (%) 98 Oxygen Delivery Method Room Air Intake Visit Reasons: Hyponatremia/ Essential Hypertension-Conf Business Continuity Coordinator Required: No Accompanied by: Self / Same As Patient Allergies tetracycline [TETRACYCLINE] Allergy (Unknown, Verified 09/15/24 13:45) Rash, itchy epinephrine Allergy (Unknown, Uncoded 08/14/23 14:46) heart palpitations HPI Comments Details: Thank for referring Maday for evaluation hyponatremia and hypertension. She is known to hypertension for a while and has been on hydrochlorothiazide bit she had been taking regularly without much side effects. She also is known to renal calculi. Her blood pressure started getting fluctuant, more so after COVID infection. She had to come off hydrochlorothiazide given hyponatremia. Subsequently she was started on valsartan and the dose of which was maximized. She had been tolerating that without much side effects. Her blood pressure control continue to be suboptimal . She was having intermittent resting tachycardia and chest pressure symptoms without any reason. She was started on metoprolol of the time but she developed emotional lability as well as tiredness and it was discontinued. She has been started on 2.5 mg amlodipine at that time. She has been having some headache/ foggy head which she was attributing to amlodipine. Her blood pressure continues to be uncontrolled. She is not known to have any underlying thyroid disorders. She has no history of renal failure, liver disease or heart failure. She has had hyponatremia remotely. Even at that time she has been on hydrochlorothiazide. She denied any diagnosis of depression but gets anxious at times. She is not known to have any hyperk alemia, edema. She denies drinking excessive fluid or alcohol. She has no history of any malignancy. She feels stressed about her ongoing health complaints [facility] Medical History (Updated 09/15/24 @ 14:45 by Favian Nichols MD) History of kidney stones Hiatal hernia Osteoporosis GERD (gastroesophageal reflux disease) Surgical History (System 08/14/23 @ 14:46 by Brittney Sprague) History of blepharoplasty History of hammer toe correction Hx of hysterectomy History of esophagogastroduodenoscopy (EGD) Hx of colonoscopy Family History (Updated 09/15/24 @ 13:43 by Mahsa Hoffman MA) Mother Hypertension Kidney stone Father Cancer Social History (Updated 09/15/24 @ 13:42 by Mahsa Hoffman MA) Do you presently have visiting nurse or other home services: No Alcohol intake: never Patient Tobacco Use Status: Former Tobacco user Review of Systems Const All systems reviewed & are unremarkable except as noted in HPI and below Physical Exam Const General: comfortable and no acute distress Orientation/consciousness: patient oriented x3 HEENT Head: Yes normocephalic Mouth: Normal oral and palatal mucosa present Eyes EOM: EOMs intact bilaterally Neck Neck: Yes supple Resp Auscultation: clear to auscultation bilaterally Cardio Jugular venous distension: no JVD Rate: regular rate GI Palpation (GI): Soft to palpation Auscultation: normal bowel sounds General: Yes no CVA tenderness Back/Spine/Pelvis Back: no CVA tenderness Skin General skin exam: no rashes or lesions noted Neuro General: patient oriented x3 and moves all extremities Extrem General: Yes no pedal edema Results Reviewed Nephrology Results: Hgb 13.9 g/dl (12.0-16.0) 06/30/24 WBC 9.4 X10*3/uL (4.8-10.8) 06/30/24 Plt Count 259 X10*3/uL (160-400) 06/30/24 Sodium 137 mmol/L (135-145) 09/01/24 Potassium 3.7 mmol/L (3.3-5.1) 01/04/24 Chloride 99 mmol/L (96-108) 01/04/24 Carbon Dioxide 26 mmol/L (22-29) 01/04/24 BUN 10 mg/dL (9-16) 06/30/24 Creatinine 0.73 mg/dL (0.5-1.4) 06/30/24 Calcium 9.6 mg/dL (8.4-10.2) 01/04/24 Urine Protein Negative mg/dL (Neg-Trace) 06/24/24 Assessment & Plan Assessment & Plan (1) Hypertension: Code(s): I10 - Essential (primary) hypertension Category: Medical Qualifiers: Hypertension type: primary hypertension Qualified Code(s): I10 - Essential (primary) hypertension (2) Hyponatremia: Code(s): E87.1 - Hypo-osmolality and hyponatremia Category: Medical (3) Tachycardia: Code(s): R00.0 - Tachycardia, unspecified Category: Medical Plan Maday has longstanding hypertension which is uncontrolled now. She has been having chest pressure and intermittent tachycardia without any reason. Her blood pressure control remains suboptimal after COVID infection. She did not tolerate metoprolol due to development of emotional lability. She is currently on valsartan 320 mg daily. She has been on amlodipine 2.5 mg which I increased to 5 mg daily. She likely will need more antihypertensive medications to keep her blood pressure at goal. I asked her to keep off hydrochlorothiazide for now. She has history of renal calculi. She should restrict her fluid intake to 48 oz in 24 hours. She has strong family history hypertension. She denied any other vascular risk factors or active vascular disease. I have ordered workup for her blood pressure fluctuation. I plan to do a 24 hour ambulatory blood pressure monitor as well as Doppler of her renal arteries with time. She needs a baseline EKG, Holter monitor as well as stress test and echocardiogram. I took the liberty to refer her to a compound filler. I may add diltiazem after discontinuing amlodipine at the next visit(waiting for cardiology consult given cardiac symptoms). I shall continue to work her up and optimize her medications to keep her blood pressure at goal. Time spent retrieving all the data, patient encounter ,documentation, coordinating care included 61 minutes. Answered all questions. Follow-up appointment given. Orders: Orders Aldosterone 1 Week I10 - Essential (primary) hypertension Aldost/Renin 1 Week I10 - Essential (primary) hypertension TSH reflex Free T4 1 Week I10 - Essential (primary) hypertension Sodium Urine Random 1 Week I10 - Essential (primary) hypertension Osmolality Urine 1 Week I10 - Essential (primary) hypertension Metanephrines, Plasma 1 Week I10 - Essential (primary) hypertension Uric Acid Today E87.1 - Hypo-osmolality and hyponatremia, I10 - Essential (primary) hypertension Renin 1 Week I10 - Essential (primary) hypertension Electrolytes 1 Week I10 - Essential (primary) hypertension Cortisol Random 1 Week I10 - Essential (primary) hypertension Immunofixation Pnl, Serum 1 Week I10 - Essential (primary) hypertension Referrals Cardiology Referral R00.0 - Tachycardia, unspecified Coding Level of Care Code New Pt Level 5 (13954) Diagnoses Primary hypertension I10 Hypertension type: primary hypertension Hyponatremia E87.1 Tachycardia R00.0
[2024-09-15 13:46] VITALS: BP 160/90; PULSE 98; O2SAT 98; BMI 25.4
== END 2024-09-15 14:39 | disposition home or self-care (01) ==
LOC: HO.HKAS 13:36
PROVIDERS: PCP Internal Medicine; Referring Provider Internal Medicine; Visit Provider Internal Medicine Nephrology
DX: I10 Essential (primary) hypertension (principal); E87.1 Hypo-osmolality and hyponatremia; R00.0 Tachycardia, unspecified
CPT/HCPCS: 99205

== ENCOUNTER → 2024-09-15 13:35 | Outpatient (BNVA) | payer MEDICARE, SELFPAY | PROVIDERS: PCP Internal Medicine; Referring Provider Internal Medicine; Visit Provider Internal Medicine Nephrology | DX: I10 Essential (primary) hypertension (principal); E87.1 Hypo-osmolality and hyponatremia; R00.0 Tachycardia, unspecified | CPT/HCPCS: 99202 ==

== ENCOUNTER 2024-09-22 11:16 | Outpatient (REF) | payer MEDICARE, SELFPAY ==
[2024-09-22 12:09] LABS: Anion Gap 7 (12-20); Carbon Dioxide 29 mmol/L (22-29); Chloride 105 mmol/L (96-108); Potassium 4.4 mmol/L (3.3-5.1); Sodium 137 mmol/L (135-145)
[2024-09-22 12:34] LABS: TSH reflex Free T4 1.71 uIU/mL (0.32-4.0)
[2024-09-22 13:01] LABS: Osmolality Urine 260 mosm/kg (373-1093)
[2024-09-22 15:19] LABS: Cortisol Random 11.8 ug/dL
[2024-09-22 17:47] LABS: Uric Acid 2.6 mg/dL (2.4-5.7)
[2024-09-27 17:23] LABS: IgA 308 mg/dL (70-320); IgG 842 mg/dL (600-1540); IgM 95 mg/dL (50-300)
[2024-09-29 16:38] LABS: Metanephrine, Free 47 pg/mL (<=57); Normetanephrines, Free 208 pg/mL (<=148); Total Metanephrine, Free 255 pg/mL (<=205)
[2024-09-30 16:44] LABS: Aldosterone/Renin Ratio 0.8 Ratio (0.9-28.9); Plasma Renin Activity 2.58 ng/mL/h (0.25-5.82); Renin 2.86 ng/mL/h (0.25-5.82)
== END 2024-09-22 11:17 | disposition home or self-care (01) ==
LOC: HO.LAB 11:16
PROVIDERS: PCP Internal Medicine; Visit Provider Internal Medicine Nephrology
DX: I10 Essential (primary) hypertension (principal); E87.1 Hypo-osmolality and hyponatremia
CPT/HCPCS: 36415; 80051; 82088; 82533; 82784; 83835; 83935; 84244; 84300; 84443; 84550; 86334

== ENCOUNTER 2024-09-28 13:50 | Outpatient (AMB) | payer MEDICARE, SELFPAY ==
--- NOTE | 2024-09-28 14:04 | HO.NEPHOV_ITS ---
Vital Signs 09/28/24 14:09 Height 5 ft 3 in Weight 141 lb 8 oz BMI 25.1 BP 144/80 H Blood Pressure Location Rt brachial Position Sitting Pulse 95 Pulse Source Pulse Oximeter Pulse Oximetry (%) 98 Oxygen Delivery Method Room Air Intake Visit Reasons: Hyponatremia/ Essential Hypertension-Conf Special Tester Required: No Accompanied by: Self / Same As Patient Allergies tetracycline [TETRACYCLINE] Allergy (Unknown, Verified 09/28/24 14:09) Rash, itchy epinephrine Allergy (Unknown, Uncoded 08/14/23 14:46) heart palpitations HPI Comments Details: Maday was seen for hyponatremia and hypertension. She is known to hypertension for a while and has been on hydrochlorothiazide bit she had been taking regularly without much side effects. She also is known to renal calculi. Her blood pressure started getting fluctuant, more so after COVID infection. She had to come off hydrochlorothiazide given hyponatremia. Subsequently she was started on valsartan and the dose of which was maximized. She had been tolerating that without much side effects. Her blood pressure control continue to be suboptimal . She was having intermittent resting tachycardia and chest pressure symptoms without any reason. She was started on metoprolol of the time but she developed emotional lability as well as tiredness and it was discontinued. She has been started on 2.5 mg amlodipine at that time. She has been having some headache/ foggy head which she was attributing to amlodipine. Her blood pressure continues to be uncontrolled. She is not known to have any underlying thyroid disorders. She has no history of renal failure, liver disease or heart failure. She has had hyponatremia remotely. Even at that time she has been on hydrochlorothiazide. She denied any diagnosis of depression but gets anxious at times. She is not known to have any hyperkalemia, edema. She denies drinking excessive fluid or alcohol. She has no history of any malignancy. Her BP is better regulated with medication adjustment [facility] Medical History (Updated 09/15/24 @ 14:45 by Favian Nichols MD) History of kidney stones Hiatal hernia Osteoporosis GERD (gastroesophageal reflux disease) Surgical History History of blepharoplasty History of hammer toe correction Hx of hysterectomy History of esophagogastroduodenoscopy (EGD) Hx of colonoscopy Family History Mother Hypertension Kidney stone Father Cancer Social History (Updated 09/15/24 @ 13:42 by Mahsa Hoffman MA) Do you presently have visiting nurse or other home services: No Alcohol intake: never Patient Tobacco Use Status: Former Tobacco user Review of Systems Const All systems reviewed & are unremarkable except as noted in HPI and below Physical Exam Const General: comfortable and no acute distress Orientation/consciousness: patient oriented x3 HEENT Head: Yes normocephalic Mouth: Normal oral and palatal mucosa present Eyes EOM: EOMs intact bilaterally Neck Neck: Yes supple Resp Auscultation: clear to auscultation bilaterally Cardio Jugular venous distension: no JVD Rate: regular rate GI Palpation (GI): Soft to palpation Auscultation: normal bowel sounds General: Yes no CVA tenderness Back/Spine/Pelvis Back: no CVA tenderness Skin General skin exam: no rashes or lesions noted Neuro General: patient oriented x3 and moves all extremities Extrem General: Yes no pedal edema Results Reviewed Nephrology Results: Hgb 13.9 g/dl (12.0-16.0) 06/30/24 WBC 9.4 X10*3/uL (4.8-10.8) 06/30/24 Plt Count 259 X10*3/uL (160-400) 06/30/24 Sodium 137 mmol/L (135-145) 09/22/24 Potassium 4.4 mmol/L (3.3-5.1) 09/22/24 Chloride 105 mmol/L (96-108) 09/22/24 Carbon Dioxide 29 mmol/L (22-29) 09/22/24 BUN 10 mg/dL (9-16) 06/30/24 Creatinine 0.73 mg/dL (0.5-1.4) 06/30/24 Calcium 9.6 mg/dL (8.4-10.2) 01/04/24 Urine Protein Negative mg/dL (Neg-Trace) 06/24/24 Assessment & Plan Assessment & Plan (1) Hyponatremia: Code(s): E87.1 - Hypo-osmolality and hyponatremia Category: Medical (2) Hypertension: Code(s): I10 - Essential (primary) hypertension Category: Medical Qualifiers: Hypertension type: primary hypertension Qualified Code(s): I10 - Essential (primary) hypertension Braydon Nassar has longstanding hypertension which is uncontrolled now. She has been having chest pressure and intermittent tachycardia without any reason. Her blood pressure control remains suboptimal after COVID infection. She did not tolerate metoprolol due to development of emotional lability. She is currently on valsartan 320 mg daily. She had been on amlodipine 2.5 mg which I increased to 5 mg daily at the last visit. She likely will need more antihypertensive medications to keep her blood pressure at goal. I asked her to keep off hydrochlorothiazide for now. She has history of renal calculi. She should restrict her fluid intake to 48 oz in 24 hours. She has strong family history hypertension. She denied any other vascular risk factors or active vascular disease. She may need a 24 hour ambulatory blood pressure monitor as well as Doppler of her renal arteries with time, if needed. I switched her Amlodipine to diltiazem 120 mg to be taken at night and Valsartan 320 mg in the morning. Answered all questions. Follow-up appointment given Medications: New diltiazem HCl ER Take it at night 120 mg PO DAILY 30 caps 3RF Coding Level of Care Code Est Pt Level 4 (91429) Diagnoses Hyponatremia E87.1 Primary hypertension I10 Hypertension type: primary hypertension
[2024-09-28 14:09] VITALS: BP 144/80; PULSE 95; O2SAT 98; BMI 25.1
== END 2024-09-28 14:33 | disposition home or self-care (01) ==
PROVIDERS: PCP Internal Medicine; Visit Provider Internal Medicine Nephrology
DX: E87.1 Hypo-osmolality and hyponatremia (principal); I10 Essential (primary) hypertension
CPT/HCPCS: 99214

== ENCOUNTER → 2024-09-28 13:50 | Outpatient (BNVA) | payer MEDICARE, SELFPAY | PROVIDERS: PCP Internal Medicine; Visit Provider Internal Medicine Nephrology | DX: I10 Essential (primary) hypertension (principal); E87.1 Hypo-osmolality and hyponatremia; Z87.442 Personal history of urinary calculi | CPT/HCPCS: 99212 ==

== ENCOUNTER 2024-10-17 11:50 | Outpatient (AMB) | payer MEDICARE, SELFPAY ==
--- NOTE | 2024-10-17 12:09 | HO.NEPHOV ---
Vital Signs 10/17/24 12:10 Height 5 ft 3 in Weight 143 lb 2 oz BMI 25.4 BP 164/90 H Blood Pressure Location Rt brachial Position Sitting Pulse 84 Pulse Source Pulse Oximeter Pulse Oximetry (%) 97 Oxygen Delivery Method Room Air Intake Visit Reasons: Pt request/Not feeling well w/ new med Epic Trainer Required: No Accompanied by: Self / Same As Patient Allergies tetracycline [TETRACYCLINE] Allergy (Unknown, Verified 10/17/24 12:10) Rash, itchy epinephrine Allergy (Unknown, Uncoded 08/14/23 14:46) heart palpitations HPI Comments Details: Maday was seen for hyponatremia and hypertension. She is known to hypertension for a while and has been on hydrochlorothiazide bit she had been taking regularly without much side effects. She also is known to renal calculi. Her blood pressure started getting fluctuant, more so after COVID infection. She had to come off hydrochlorothiazide given hyponatremia. Subsequently she was started on valsartan and the dose of which was maximized. She had been tolerating that without much side effects. Her blood pressure control continue to be suboptimal . She was having intermittent resting tachycardia and chest pressure symptoms without any reason. She was started on metoprolol of the time but she developed emotional lability as well as tiredness and it was discontinued. She has been started on 2.5 mg amlodipine at that time. She has been having some headache/ foggy head which she was attributing to amlodipine. Her blood pressure continued to be uncontrolled, but better with addition of Diltiazem. She is not known to have any underlying thyroid disorders. She has no history of renal failure, liver disease or heart failure. She has had hyponatremia remotely. She denied any diagnosis of depression but gets anxious at times. She is not known to have any hyperkalemia, edema. She denies drinking excessive fluid or alcohol. She has no history of any malignancy. She feels heavy head with questionable dizziness. [facility] Medical History (Updated 09/15/24 @ 14:45 by Favian Nichols MD) History of kidney stones Hiatal hernia Osteoporosis GERD (gastroesophageal reflux disease) Surgical History History of blepharoplasty History of hammer toe correction Hx of hysterectomy History of esophagogastroduodenoscopy (EGD) Hx of colonoscopy Family History Mother Hypertension Kidney stone Father Cancer Social History Do you presently have visiting nurse or other home services: No Alcohol intake: never Patient Tobacco Use Status: Former Tobacco user Review of Systems Const All systems reviewed & are unremarkable except as noted in HPI and below Physical Exam Vital Signs: Last Vital Signs Pulse 84 10/17/24 12:10 BP 164/90 H 10/17/24 12:10 Pulse Ox 97 10/17/24 12:10 Oxygen Delivery Method Room Air 10/17/24 12:10 BMI result Body Mass Index 25.4 Const General: comfortable and no acute distress Orientation/consciousness: patient oriented x3 HEENT Head: Yes normocephalic Mouth: Normal oral and palatal mucosa present Eyes EOM: EOMs intact bilaterally Neck Neck: Yes supple Resp Auscultation: clear to auscultation bilaterally Cardio Jugular venous distension: no JVD Rate: regular rate GI Palpation (GI): Soft to palpation Auscultation: normal bowel sounds General: Yes no CVA tenderness Back/Spine/Pelvis Back: no CVA tenderness Skin General skin exam: no rashes or lesions noted Neuro General: patient oriented x3 and moves all extremities Extrem General: Yes no pedal edema Results Reviewed Nephrology Results: Hgb 13.9 g/dl (12.0-16.0) 06/30/24 WBC 9.4 X10*3/uL (4.8-10.8) 06/30/24 Plt Count 259 X10*3/uL (160-400) 06/30/24 Sodium 137 mmol/L (135-145) 09/22/24 Potassium 4.4 mmol/L (3.3-5.1) 09/22/24 Chloride 105 mmol/L (96-108) 09/22/24 Carbon Dioxide 29 mmol/L (22-29) 09/22/24 BUN 10 mg/dL (9-16) 06/30/24 Creatinine 0.73 mg/dL (0.5-1.4) 06/30/24 Calcium 9.6 mg/dL (8.4-10.2) 01/04/24 Urine Protein Negative mg/dL (Neg-Trace) 06/24/24 Assessment & Plan Assessment & Plan (1) Hypertension: Code(s): I10 - Essential (primary) hypertension Category: Medical Qualifiers: Hypertension type: primary hypertension Qualified Code(s): I10 - Essential (primary) hypertension Plan Maday has longstanding hypertension which is better controlled now, at home. She did not tolerate metoprolol due to development of emotional lability. She is currently on valsartan 320 mg daily. Her HR is better controlled after I initiated Diltiazem. I asked her to keep off hydrochlorothiazide for now. She has history of renal calculi. She should restrict her fluid intake to 48 oz in 24 hours. She has strong family history hypertension. She denied any other vascular risk factors or active vascular disease. I ordered a 24 hour ambulatory blood pressure monitor today. She may need Doppler of her renal arteries with time, if needed.Answered all questions. Follow-up appointment given Orders: Orders AMB 24 HR B/P Monitor PLACEMENT Today I10 - Essential (primary) hypertension Coding Level of Care Code Est Pt Level 4 (55505) Diagnoses Primary hypertension I10 Hypertension type: primary hypertension
[2024-10-17 12:10] VITALS: BP 164/90; PULSE 84; O2SAT 97; BMI 25.4
== END 2024-10-17 12:31 | disposition home or self-care (01) ==
PROVIDERS: PCP Internal Medicine; Visit Provider Internal Medicine Nephrology
DX: I10 Essential (primary) hypertension (principal)
CPT/HCPCS: 99214

== ENCOUNTER → 2024-10-17 11:50 | Outpatient (BNVA) | payer MEDICARE, SELFPAY | PROVIDERS: PCP Internal Medicine; Visit Provider Internal Medicine Nephrology | DX: I10 Essential (primary) hypertension (principal) | CPT/HCPCS: 99212 ==

== ENCOUNTER 2024-10-26 12:05 | Outpatient (AMB) | payer MEDICARE, SELFPAY ==
--- NOTE | 2024-10-26 12:31 | HO.NEPHOV_ITS ---
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 She is known to hypertension for a while and has been on hydrochlorothiazide bit she had been taking regularly without much side effects. She also is known to renal calculi. Her blood pressure started getting fluctuant, more so after COVID infection. She had to come off hydrochlorothiazide given hyponatremia. Subsequently she was started on valsartan and the dose of which was maximized. She had been tolerating that without much side effects. Her blood pressure control continue to be suboptimal . She was having intermittent resting tachycardia and chest pressure symptoms without any reason. She was started on metoprolol of the time but she developed emotional lability as well as tiredness and it was discontinued. She has been started on 2.5 mg amlodipine at that time. She has been having some headache/ foggy head which she was attributing to amlodipine. Her blood pressure continued to be uncontrolled, but better with addition of Diltiazem. She is not known to have any underlying thyroid disorders. She has no history of renal failure, liver disease or heart failure. She has had hyponatremia remotely. She denied any diagnosis of depression but gets anxious at times. She is not known to have any hyperkalemia, edema. She denies drinking excessive fluid or alcohol. She has no history of any malignancy. [facility] Medical History (Updated 09/15/24 @ 14:45 by Favian Nichols MD) History of kidney stones Hiatal hernia Osteoporosis GERD (gastroesophageal reflux disease) Surgical History History of blepharoplasty History of hammer toe correction Hx of hysterectomy History of esophagogastroduodenoscopy (EGD) Hx of colonoscopy Family History Mother Hypertension Kidney stone Father Cancer Social History Do you presently have visiting nurse or other home services: No Alcohol intake: never Patient Tobacco Use Status: Former Tobacco user Review of Systems Const All systems reviewed & are unremarkable except as noted in HPI and below Physical Exam Vital Signs: Last Vital Signs Pulse 61 10/26/24 12:32 BP 150/72 H 10/26/24 12:32 Pulse Ox 99 10/26/24 12:32 Oxygen Delivery Method Room Air 10/26/24 12:32 BMI result Body Mass Index 25.2 Const General: comfortable and no acute distress Orientation/consciousness: patient oriented x3 HEENT Head: Yes normocephalic Mouth: Normal oral and palatal mucosa present Eyes EOM: EOMs intact bilaterally Neck Neck: Yes supple Resp Auscultation: clear to auscultation bilaterally Cardio Jugular venous distension: no JVD Rate: regular rate GI Palpation (GI): Soft to palpation Auscultation: normal bowel sounds General: Yes no CVA tenderness Back/Spine/Pelvis Back: no CVA tenderness Skin General skin exam: no rashes or lesions noted Neuro General: patient oriented x3 and moves all extremities Extrem General: Yes no pedal edema Results Reviewed Nephrology Results: Hgb 13.9 g/dl (12.0-16.0) 06/30/24 WBC 9.4 X10*3/uL (4.8-10.8) 06/30/24 Plt Count 259 X10*3/uL (160-400) 06/30/24 Sodium 137 mmol/L (135-145) 09/22/24 Potassium 4.4 mmol/L (3.3-5.1) 09/22/24 Chloride 105 mmol/L (96-108) 09/22/24 Carbon Dioxide 29 mmol/L (22-29) 09/22/24 BUN 10 mg/dL (9-16) 06/30/24 Creatinine 0.73 mg/dL (0.5-1.4) 06/30/24 Urine Protein Negative mg/dL (Neg-Trace) 06/24/24 Assessment & Plan Assessment & Plan (1) Hyponatremia: Code(s): E87.1 - Hypo-osmolality and hyponatremia Category: Medical (2) Hypertension: Code(s): I10 - Essential (primary) hypertension Category: Medical Qualifiers: Hypertension type: primary hypertension Qualified Code(s): I10 - Essential (primary) hypertension Braydon Nassar has longstanding hypertension which is better controlled now, at home. She did not tolerate metoprolol due to development of emotional lability. She is currently on valsartan 320 mg daily. Her HR is better controlled after I initiated Diltiazem which I increased to 240 mg daily. I asked her to keep off hydrochlorothiazide for now. She has history of renal calculi. She should restrict her fluid intake to 48 oz in 24 hours. She has strong family history hypertension. She denied any other vascular risk factors or active vascular disease. Her 24 hour ambulatory blood pressure monitor was reviewed. She may need Doppler of her renal arteries with time, if needed. Answered all questions. Follow-up appointment given Orders: Orders Electrolytes 3 Weeks E87.1 - Hypo-osmolality and hyponatremia, I10 - Essential (primary) hypertension Coding Level of Care Code Est Pt Level 4 (95680) Diagnoses Hyponatremia E87.1 Primary hypertension I10 Hypertension type: primary hypertension
[2024-10-26 12:32] VITALS: BP 150/72; PULSE 61; O2SAT 99; BMI 25.2
== END 2024-10-26 12:59 | disposition home or self-care (01) ==
PROVIDERS: PCP Internal Medicine; Visit Provider Internal Medicine Nephrology
DX: E87.1 Hypo-osmolality and hyponatremia (principal); I10 Essential (primary) hypertension
CPT/HCPCS: 99214

== ENCOUNTER → 2024-10-26 12:05 | Outpatient (BNVA) | payer MEDICARE, SELFPAY | PROVIDERS: PCP Internal Medicine; Visit Provider Internal Medicine Nephrology | DX: I10 Essential (primary) hypertension (principal); E87.1 Hypo-osmolality and hyponatremia | CPT/HCPCS: 99212 ==

== ENCOUNTER 2024-11-14 12:03 | Outpatient (REF) | payer MEDICARE, SELFPAY ==
[2024-11-14 13:14] LABS: Anion Gap 11 (12-20); Carbon Dioxide 25 mmol/L (22-29); Chloride 105 mmol/L (96-108); Sodium 137 mmol/L (135-145)
== END 2024-11-14 12:04 | disposition home or self-care (01) ==
LOC: HO.10HDL 12:03
PROVIDERS: Visit Provider Internal Medicine Nephrology
DX: I10 Essential (primary) hypertension (principal); E87.1 Hypo-osmolality and hyponatremia
CPT/HCPCS: 36415; 80051

== ENCOUNTER 2024-11-18 13:49 | Outpatient (AMB) | payer MEDICARE, SELFPAY ==
[2024-11-18 13:48] VITALS: BP 130/80; PULSE 102; O2SAT 97; BMI 25.0
--- NOTE | 2024-11-18 13:48 | HO.NEPHOV ---
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 She is known to hypertension for a while and has been on hydrochlorothiazide bit she had been taking regularly without much side effects. She also is known to renal calculi. Her blood pressure started getting fluctuant, more so after COVID infection. She had to come off hydrochlorothiazide given hyponatremia. Subsequently she was started on valsartan and the dose of which was maximized. She had been tolerating that without much side effects. Her blood pressure control continue to be suboptimal . She was having intermittent resting tachycardia and chest pressure symptoms without any reason. She was started on metoprolol of the time but she developed emotional lability as well as tiredness and it was discontinued. She has been started on 2.5 mg amlodipine at that time. She has been having some headache/ foggy head which she was attributing to amlodipine. She is not known to have any underlying thyroid disorders. She has no history of renal failure, liver disease or heart failure. She has had hyponatremia remotely. She denied any diagnosis of depression but gets anxious at times. She is not known to have any hyperkalemia, edema. She denies drinking excessive fluid or alcohol. She has no history of any malignancy. [facility], [facility] Medical History (Updated 09/15/24 @ 14:45 by Favian Nichols MD) History of kidney stones Hiatal hernia Osteoporosis GERD (gastroesophageal reflux disease) Surgical History History of blepharoplasty History of hammer toe correction Hx of hysterectomy History of esophagogastroduodenoscopy (EGD) Hx of colonoscopy Family History Mother Hypertension Kidney stone Father Cancer Social History Do you presently have visiting nurse or other home services: No Alcohol intake: never Patient Tobacco Use Status: Former Tobacco user Review of Systems Const All systems reviewed & are unremarkable except as noted in HPI and below Physical Exam Vital Signs: Last Vital Signs Pulse 102 H 11/18/24 13:48 BP 130/80 11/18/24 13:48 Pulse Ox 97 11/18/24 13:48 Oxygen Delivery Method Room Air 11/18/24 13:48 BMI result Body Mass Index 25.0 Const General: comfortable and no acute distress Orientation/consciousness: patient oriented x3 HEENT Head: Yes normocephalic Mouth: Normal oral and palatal mucosa present Eyes EOM: EOMs intact bilaterally Neck Neck: Yes supple Resp Auscultation: clear to auscultation bilaterally Cardio Jugular venous distension: no JVD Rate: regular rate GI Palpation (GI): Soft to palpation Auscultation: normal bowel sounds General: Yes no CVA tenderness Back/Spine/Pelvis Back: no CVA tenderness Skin General skin exam: no rashes or lesions noted Neuro General: patient oriented x3 and moves all extremities Extrem General: Yes no pedal edema Results Reviewed Nephrology Results: Sodium 137 mmol/L (135-145) 11/14/24 Potassium 4.0 mmol/L (3.3-5.1) 11/14/24 Chloride 105 mmol/L (96-108) 11/14/24 Carbon Dioxide 25 mmol/L (22-29) 11/14/24 Assessment & Plan Assessment & Plan (1) Hypertension: Code(s): I10 - Essential (primary) hypertension Category: Medical Qualifiers: Hypertension type: primary hypertension Qualified Code(s): I10 - Essential (primary) hypertension (2) Hyponatremia: Code(s): E87.1 - Hypo-osmolality and hyponatremia Category: Medical Plan Maday has longstanding hypertension which is better controlled now. She did not tolerate metoprolol due to development of emotional lability. She is currently on valsartan 320 mg daily. Her HR is better controlled after I initiated Diltiazem which I increased to 240 mg daily at the last visit. I asked her to keep off hydrochlorothiazide for now. She has history of renal calculi. She should restrict her fluid intake to 48 oz in 24 hours. She has strong family history hypertension. She denied any other vascular risk factors or active vascular disease. She may need Doppler of her renal arteries with time, if needed. Answered all questions. Follow-up appointment given Coding Level of Care Code Est Pt Level 4 (99127) Diagnoses Primary hypertension I10 Hypertension type: primary hypertension Hyponatremia E87.1
== END 2024-11-18 14:05 | disposition home or self-care (01) ==
PROVIDERS: PCP Internal Medicine; Visit Provider Internal Medicine Nephrology
DX: I10 Essential (primary) hypertension (principal); E87.1 Hypo-osmolality and hyponatremia
CPT/HCPCS: 99214

== ENCOUNTER → 2024-11-18 13:49 | Outpatient (BNVA) | payer MEDICARE, SELFPAY | PROVIDERS: PCP Internal Medicine; Visit Provider Internal Medicine Nephrology | DX: I10 Essential (primary) hypertension (principal); E87.1 Hypo-osmolality and hyponatremia | CPT/HCPCS: 99212 ==

== ENCOUNTER 2024-12-02 11:46 | Outpatient (AMB) | payer MEDICARE, SELFPAY ==
[2024-12-02 11:48] VITALS: BP 152/78; PULSE 91; O2SAT 98; BMI 24.8
--- NOTE | 2024-12-02 11:48 | HO.NEPHOV ---
Vital Signs 12/02/24 11:48 Height 5 ft 3 in Weight 140 lb BMI 24.8 BP 152/78 H Blood Pressure Location Rt brachial Position Sitting Pulse 91 Pulse Source Pulse Oximeter Pulse Oximetry (%) 98 Oxygen Delivery Method Room Air Intake Visit Reasons: Pt req sooner appt/ BP Meds/ Not feeling good Geriatric Physician Required: No Accompanied by: Self / Same As Patient Allergies tetracycline [TETRACYCLINE] Allergy (Unknown, Verified 12/02/24 11:51) Rash, itchy epinephrine Allergy (Unknown, Uncoded 08/14/23 14:46) heart palpitations Medication List - Last Reconciled 12/02/24 by Seven Treadwell MD diltiazem HCl ER 120 mg PO DAILY diltiazem HCl ER 60 mg PO DAILY valsartan 320 mg PO DAILY HPI Comments Details: Maday was seen for hyponatremia and hypertension. She is known to hypertension for a while and has been on hydrochlorothiazide bit she had been taking regularly without much side effects. She also is known to renal calculi. Her blood pressure started getting fluctuant, more so after COVID infection. She had to come off hydrochlorothiazide given hyponatremia. Subsequently she was started on valsartan and the dose of which was maximized. She had been tolerating that without much side effects. Her blood pressure control continue to be suboptimal . She was having intermittent resting tachycardia and chest pressure symptoms without any reason. She was started on metoprolol of the time but she developed emotional lability as well as tiredness and it was discontinued. She has been started on 2.5 mg amlodipine at that time. She has been having some headache/ foggy head which she was attributing to amlodipine. She is not known to have any underlying thyroid disorders. She has no history of renal failure, liver disease or heart failure. She has had hyponatremia remotely. She denied any diagnosis of depression but gets anxious at times. She is not known to have any hyperkalemia, edema. She denies drinking excessive fluid or alcohol. She has no history of any malignancy. 12/02/24 Comes in with lots of questions Says she doesnt feel good HR dropped few times to 39/mt Diltiazem 60mg was added recently in addition to 120 mg She is clearly anxious she had with her blood pressure readings. We reviewed all her medications. Diltiazem could be responds we will for the headaches she is experiencing. In the past she was tried amlodipine which also caused headache. [facility] Medical History (Updated 12/02/24 @ 12:40 by Seven Treadwell MD) Hypertension History of kidney stones Hiatal hernia Osteoporosis GERD (gastroesophageal reflux disease) Surgical History History of blepharoplasty History of hammer toe correction Hx of hysterectomy History of esophagogastroduodenoscopy (EGD) Hx of colonoscopy Family History Mother Hypertension Kidney stone Father Cancer Social History Do you presently have visiting nurse or other home services: No Alcohol intake: never Patient Tobacco Use Status: Former Tobacco user Physical Exam Vital Signs: Last Vital Signs Pulse 91 12/02/24 11:48 BP 152/78 H 12/02/24 11:48 Pulse Ox 98 12/02/24 11:48 Oxygen Delivery Method Room Air 12/02/24 11:48 BMI result Body Mass Index 24.8 Comfortable Neck supple no JVD. Lungs entry equal no rales. Heart S1-S2 heard no gallop or rub. Abdomen soft nontender. Neuro alert awake oriented. No asterixis. Extremities no edema. Repeat blood pressure 170/80 mm Hg sitting Results Reviewed Nephrology Results: Sodium 137 mmol/L (135-145) 11/14/24 Potassium 4.0 mmol/L (3.3-5.1) 11/14/24 Chloride 105 mmol/L (96-108) 11/14/24 Carbon Dioxide 25 mmol/L (22-29) 11/14/24 Assessment & Plan Assessment & Plan (1) Hypertension: Code(s): I10 - Essential (primary) hypertension Category: Medical Qualifiers: Hypertension type: primary hypertension Qualified Code(s): I10 - Essential (primary) hypertension Plan Maday has history of hypertension. She clearly has superimposed white coat effect. In the office today blood pressure increased from 150 up to 170 mm Hg during examination. 24 hour ABP and was also reviewed. It appears that she has since due to various antihypertensive medications. Given the fact that the heart rate dropped to 39 per minute at least twice I will decrease diltiazem from 180 mg down to 120 mg. She should monitor blood pressure at home periodically. Continue to stay on low-sodium diet. Based on home blood pressure readings we can readjust her medications. Given the history of hyponatremia we would certainly avoid thiazide type diuretics. If needed we can add a loop diuretic like furosemide or Bumex to augment the antihypertensive effect of valsartan. Apart from medications she will also benefit from lifestyle modifications including yoga or other relaxation techniques. She will returned to the office in the next few weeks to follow-up with my associate Dr. Nichols Medications: Discontinued diltiazem HCl ER Discontinued Reason: Doctor's Order 60 mg PO DAILY 30 caps 4RF Coding Level of Care Code Est Pt Level 4 (35224) Diagnoses Primary hypertension I10 Hypertension type: primary hypertension
--- OUTSIDE RECORDS SUMMARY | 2024-12-02 13:57 | XMS_ITS ---
Author Organization Spencer Stanley MD Address [address] [place] [phone] Care Team Providers Care Piece Work Checker Name Role Phone Spencer Stanley Primary Care Provider [phone] REASON FOR VISIT 3 month Encounters Encounter Location Date Provider Diagnosis Spencer Stanley MD [address] [place] [address] [address] [place] [phone] 11/04/2024 Spencer Stanley Plan Of Treatment Next Appt Details Provider Name:Spencer correa, 01/05/2025 07:45:00 AM, [address] [place] [address], [address], [phone], Provider Name:Spencer correa, 01/12/2025 09:30:00 AM, [address] [place] [address], [address], [phone], Progress Notes * Maday ARBOLEDA MDOB:[birth year] (74 yo F)Acc No.[id number]:11/04/2024 Progress Notes Patient:Maday CONCEPCION Provider:?Spencer Stanley MD :1950???Age:74 Y???Sex:Female D ate:11/04/2024 Address:[address] [place], [place] [phone] Subjective: * Chief Complaints: * ???1. 3 month. * Medical History:? Objective: * Vitals:? Assessment: Plan: * Treatment: * * The named appointment provid er may or may not be the originator of this progress note, and it is not deemed complete until electronically signed by the appointment provider. Sign off status: Pending * Provider:?Spencer Stanley MD Date:?01/05/2024 Generated for Kwaku hernández/Jameson/Chrissmitting on:?12/02/2024 01:57 PM EST
--- OUTSIDE RECORDS SUMMARY | 2024-12-02 13:57 | XMS_ITS ---
Author Organization Spencer Stanley MD Address [address] [place] [phone] Care Team Providers Care Global Program Manager Name Role Phone Spencer Stanley Primary Care Provider Allergies Allergen (clinical drug ingredient) Drug/Non Drug Allergy documented on EMR Reaction Allergy Type Onset Date Status epinephrine (uncoded) heart palpitations Allergy Active tetracycline tetracycline (uncoded) rash Allergy Active REASON FOR VISIT HBP, BP this afternoon is 177/110 but did not take Diltazen 60mg last night because she does not feel well foggy , Video [phone] Medications Medication SIG (Take, Route, Frequency, Duration) Notes Start Date End Date Status Vistaril 25 MG 1 capsule as needed Orally every 8 hrs as needed for 30 days 2021 Not-Taking Vitamin K (Phytonadione) Not-Taking Valsartan 320 MG 1 tablet Orally Once a day Active Finacea 15 % 1 application Mix Mill Tender ally ONCE A DAY IN THE EVENING [...] Omeprazole 20 MG [facility] 30 MINUTES BEFORE BREAKFAST for 90 Not-Taki ng Melatonin 5 MG 1 tablet at bedtime and a 1mg tablet Orally at bedtime Not-Taking Vitamin D-3 1000 UNIT 1 capsule Orally O nce a day Not-Taking Vital Signs Height 64 in 11/25/2024 eight at home is 144 BP 177/ 110 Encounters Encounter Location Date Provider Diagnosis Spencer Stanley MD [address] [place] [phone] 11/25/2024 Spencer Stanley Essential hypertension I10 Assessments [...] high Next Appt Details Provider Name:Spencer correa, 01/05/2025 07:45:00 AM, [address] [place] [address], [place] [address], [place], [place], [phone], Provider Name:Spencer correa, 01/12/2025 09:30:00 AM, [address] [place] [address], [place] [address], [place], [place], [phone], Progress Notes * Maday ARBOLEDA MDOB:[birth year] (74 yo F)Acc No.[id number]:11/25/2024 Patient:?Maday ARBOLEDA Provider:?Spencer Stanley MD :1950???Age:74 Y???Sex:Female D ate:11/25/2024 Address:[address] [place] [address], [id number] Subjective: * Chief Complaints: * ???1. HBP. 2. BP this aftern oon is 177/110 but did not take Diltazen 60mg last night because she does not feel well foggy . 3. Video [phone]. * HPI: ???Symptom(s):?Telehealth?Location of provider rendering services:?[address], [address],?Location of patient:?at address listed in demographics for today's visit,?Patient identification confirmed using:?Name, , SSN, Insurance information,?Telehealth method:?Video conference where patient is visible to the provider of care,?Consent:?Patient verbally consented to treatment, Patient verbally consented to billing insurance company, Patient informed of any privacy concerns related to method of visit.? patient is a 74 yo female feels badly on her bp meds. headache,stomache ache and tired. skippped the 60 last night and felt better this morning and heart was beating faster and bp was up heart beat up to 110. * ROS:?General/Constitutional:?Denies?Chills.?Denies?Fatigue.?Denies?Fever.?Admits?Headache.?ENT:?Patient denies?decreased sense of smell , any loss of taste , sore throat.?Denies?Sore throat.?Respiratory:?Denies?Cough.?Denies?Shortness of breath at rest.?Denies?Shortness of breath with exertion.?Cardiovascular:?Denies?Chest pain at rest.?Denies?Chest pain with exertion.?Denies?Dizziness.?Denies?Palpitations.?Denies?Shortness of breath.?Gastrointestinal:?Denies?Diarrhea.?Denies?Nausea.?Musculoskeletal:?Patient denies?muscle aches.?Peripheral Vascular:?Patient denies?red and blue toes.? * Medical History:?Can tolerat e doxycycline without difficulty, Refuses flu [id number], colonoscopy 04/2009 - adenoma due in 5 years for upper and lower; colonoscopy and endo done 02/01/[address] Willis (repeat 01/2020), Hysterectomy (has one ovary); no paps only pelvic exam, Tinnitus of left ear, Colonoscopy done 04/29, due in 5 years. * Medications:?Taking dilTIAZe m HCl 60 MG Tablet as directed Orally , Taking Dilt- XR 120 MG Capsule Extended Release 24 Hour 1 capsule Orally Once a day , Taking Finacea 15 % Gel 1 application Externally ONCE A DAY IN THE EVENING , Taking Valsartan 320 MG Tablet 1 tablet Orally Once a day , Not-Taking/PRN Vistaril 25 MG Capsule 1 capsule as needed Orally every 8 hrs as needed , Not-Taking/PRN Vitamin K (Phytonadione) , Not-Taking/PRN Melatonin 5 MG Tablet 1 tablet at bedtime and a 1mg tablet Orally at bedtime , Not-Taking/PRN Vitamin D-3 1000 UNIT Capsule 1 capsule Orally Once a day , Not-Taking/PRN Tylenol 8 Hour Arthritis Pain 650 MG Tablet Extended Release 2 tablets as needed Orally every 8 hrs , Not-Taking/PRN Omeprazole 20 MG Capsule Delayed Release TAKE 1 CAPSULE BY MOUTH EVERY DAY 30 MINUTES BEFORE BREAKFAST , Not-Taking/PRN Econazole Nitrate 1 % Cream 1 application Externally Once a day , Not-Taking/PRN Valtrex 500 MG Tablet 1 tablet Orally every 12 hrs , Medication List reviewed and reconciled with the patient * Allergies:?Tetracycline: Donny h, Epinephrine: Heart Palpitations. Objective: * Vitals:?Ht: 64. eight at home is 144 BP 177/110. * Examination: ???General Examination: ?GENERAL APPEARANCE:?alert, well hydrated, in no distress.?HEAD:?normocephalic.? Assessment: * Assessment: 1.?Essential hypertension - I10 (Primary)??? Plan: * Treatment: * * The named appointment provid er may or may not be the originator of this progress note, and it is not deemed complete until electronically signed by the appointment provider. Sign off status: Pending * Provider:?Spencer Stanley MD Date:?0 11/25/2024 Generated for Kwaku hernández/Jameson/Yousuf on:?12/02/2024 01:56 PM EST History and Physical Notes * HPI (History of Present Illness) Category Sub-Category Detail Notes Category Not es Symptom(s) Telehealth Location of [facility] rendering services:: [address], [address] [...]
--- OUTSIDE RECORDS SUMMARY | 2024-12-02 13:57 | XMS_ITS ---
Author Organization Spencer Stanley MD Address [address] [place] [phone] Care Team Providers Care Safety Instruction Police Officer Name Role Phone Spencer Stanley Primary Care Provider Allergies Allergen (clinical drug ingredient) Drug/Non Drug Allergy documented on EMR Reaction Allergy Type Onset Date Status epinephrine (uncoded) heart palpitations Allergy Active tetracycline tetracycline (uncoded) rash Allergy Active REASON FOR VISIT post nasal drip causing a cough went to Urgent Care last week negative for Flu Covid RSV Medications Medication SIG (Take, Route, Frequency, Duration) Notes Start Date End Date Status Econazole Nitrate 1 % 1 application Exte rnally Once a day for 14 day(s) 10/29/2021 Not-Bashir ing Omeprazole 20 MG TAKE 1 CAPSULE BY [facility] EVERY DAY 30 MINUTES BEFORE BREAKFAST for 90 Not-Taki ng Tylenol 8 Hour Arthritis Pain 650 MG 2 tablets as needed Orally every 8 hrs Not-Taking Vitamin D-3 1000 UNIT 1 capsule Orally O nce a day Not-Taking Valtrex 500 MG 1 tablet Orally ever y 12 hrs for 10 day(s) Not-Taking Finacea 15 % 1 application Cna Ltc ally ONCE A DAY IN THE EVENING Active Melatonin 5 MG 1 tablet at bedtime and a 1mg tablet Orally at bedtime Not-Taking Vitamin K (Phytonadione) Not-Taking Vistaril 25 MG 1 capsule as needed Orally every 8 hrs as needed for 30 days 2021 Not-Taking Valsartan 320 MG 1 tablet Orally Once a day for 30 days Active Dilt-XR 120 MG 1 capsule Orally Onc e a day for 30 days Active dilTIAZem HCl 60 MG as directed Orally Active Vital Signs Blood pressure systolic 172 mm Hg 11/14/19 25 Blood pressure diastolic 80 mm Hg 025 Height 64 in 11/14/2024 Weight 144 lbs 11/14/2024 BMI 24.71 kg/m2 11/14/2024 Encounters Encounter Location Date Provider Diagnosis Spencer Stanley MD [address] [place] [phone] 11/14/2024 Spencer Stanley Viral URI J06.9 Assessments Encounter Date Diagnosis (ICD Code) Assessment Notes Treatment Notes Treatment Clinical Notes Section Notes 11/14/2024 Viral URI (ICD-10 - J06.9) has been getting better. will just observe. no reason for any antibiotics Plan Of Treatment Treatment Notes Assessment Notes Viral URI has been getting bet ter. will just observe. no reason for any antibiotics Next Appt Details Provider Name:Spencer correa, 01/05/2025 07:45:00 AM, [address] [place] [address], [address], [phone], Provider Name:Spencer correa, 01/12/2025 09:30:00 AM, [address] [place] [address], [place] [address], [place], [place], [phone], Progress Notes * Maday ARBOLEDA MDOB:[birth year] (74 yo F)Acc No.[id number]:11/14/2024 Progress Notes Patient:?Maday Arboleda Provider:?Spencer Stanley MD :1950???Age:74 Y???Sex:Female D ate:11/14/2024 Address:[address] [place] [address] [place], [id number] Subjective: * Chief Complaints: * ???post nasal drip causing a cough went to Urgent Care last week negative for Flu Covid RSV * HPI: ???Symptom(s):? had been sick before with a cold. head congestion and no chest congestion. went to urgent care and all rsv covid all negative. * ROS:?General/Constitutional:?Denies?Chills.?Denies?Fatigue.?Denies?Fever.?Denies?Headache.?ENT:?Patient complaining of?c/o post nasal drip causing a cough.?Denies?Sore throat.?Respiratory:?Admits?Cough,?from post nasal drip.?Denies?Shortness of breath at rest.?Denies?Shortness of breath with exertion.?Gastrointestinal:?Denies?Diarrhea.?Denies?Nausea.? * Medical History:? * Surgical History:? * Hospitalization/Major Diagno stic Procedure:? * Medications:?TakingdilTIAZem HCl 60 MG Tablet as directed Orally Dilt-XR 120 MG Capsule Extended Release 24 Hour 1 capsule Orally Once a dayFinacea 15 % Gel 1 application Externally ONCE A DAY IN THE EVENINGValsartan 320 MG Tablet 1 tablet Orally Once a dayTaking dilTIAZem HCl 60 MG Tablet as directed Orally Taking Dilt-XR 120 MG Capsule Extended Release 24 Hour 1 capsule Orally Once a dayTaking Finacea 15 % Gel 1 application Externally ONCE A DAY IN THE EVENINGTaking Valsartan 320 MG Tablet 1 tablet Orally Once a dayNot-Taking/PRNVistaril 25 MG Capsule 1 capsule as needed Orally every 8 hrs as neededVitamin K (Phytonadione) Melatonin 5 MG Tablet 1 tablet at bedtime and a 1mg tablet Orally at bedtimeVitamin D-3 1000 UNIT Capsule 1 capsule Orally Once a dayTylenol 8 Hour Arthritis Pain 650 MG Tablet Extended Release 2 tablets as needed Orally every 8 hrsOmeprazole 20 MG Capsule Delayed Release TAKE 1 CAPSULE BY MOUTH EVERY DAY 30 MINUTES BEFORE BREAKFAST Econazole Nitrate 1 % Cream 1 application Externally Once a dayValtrex 500 MG Tablet 1 tablet Orally every 12 hrsMedication List reviewed and reconciled with the patientNot-Taking/PRN Vistaril 25 MG Capsule 1 capsule as needed Orally every 8 hrs as neededNot-Taking/PRN Vitamin K (Phytonadione) Not-Taking/PRN Melatonin 5 MG Tablet 1 tablet at bedtime and a 1mg tablet Orally at bedtimeNot-Taking/PRN Vitamin D-3 1000 UNIT Capsule 1 capsule Orally Once a dayNot-Taking/PRN Tylenol 8 Hour Arthritis Pain 650 MG Tablet Extended Release 2 tablets as needed Orally every 8 hrsNot-Taking/PRN Omeprazole 20 MG Capsule Delayed Release TAKE 1 CAPSULE BY MOUTH EVERY DAY 30 MINUTES BEFORE BREAKFAST Not- Taking/PRN Econazole Nitrate 1 % Cream 1 application Externally Once a dayNot-Taking/PRN Valtrex 500 MG Tablet 1 tablet Orally every 12 hrsMedication List reviewed and reconciled with the patient * Allergies:?tetracycline: monique hepinephrine: heart palpitationsyes[Allergies Verified] Objective: * Vitals:?Ht: 64, Wt: 144, BMI :24.71, BP:172/80, Repeat BP:122/72, Wt-k.32. * Examination: ???General Examination: ?GENERAL APPEARANCE:?well developed, well nourished.?HEAD:?normocephalic.?SKIN:?good turgor.?HEART:?no murmurs, rubs, gallops , regular rate and rhythm.?LUNGS:?with prolonges expiratory phase no wheeze.? Assessment: * Assessment: 1.?Viral URI - J06.9 (Primar y)? Plan: * Treatment: * Procedure Codes:? * * Sign off status: Completed true * Provider:?Spencer Stanley MD Date:?0 11/14/2024 Generated for Kwaku hernández/Jameson/Yousuf on:?12/02/2024 01:56 PM EST History and Physical Notes * HPI (History of Present Illness) Category Sub-Category Detail Notes Category Not es Symptom(s) had been sick b efore alethea with a cold. head congestion and no chest congestion. went to urgent care and all rsv covid all negative Examination Category Sub-Category Detail Notes Category Not es General Examination GENERAL APPEARANCE: well developed , well nourished HEAD: normocephalic HEART: no murmurs, rubs, ga llops , regular rate and rhythm LUNGS: with prolonges expir atory phase no wheeze SKIN: good turgor
--- OUTSIDE RECORDS SUMMARY | 2024-12-02 13:57 | XMS_ITS | Patient Health Record ---
Author Organization [facility] Address [address] [place] [address] Care Team Providers Care Air/Ocean Export Clerk Name Role Phone Spencer Stanley MD Primary Care Provider Sarabjit Caballero Unavailable [phone] Gurvinder Salguero Unavailable [phone] Allergies Allergen (clinical drug ingredient) Drug/Non Drug Allergy documented on EMR Reaction Allergy Type Onset Date Status Biaxin itchy Drug Allergy Active EPINEPHrine Rapid Heart rate Drug Allergy Active Novocain Rapid Heart rate Drug Allergy Active tetracycline Tetracycline HCl Itching Drug Allergy Active Adhesive Tape rash Drug Allergy Act nilton azithromycin Azithromycin itchy Drug Allergy A ctive erythromycin Erythromycin itchy Drug Allergy A ctive Reason For Referral No Information Medications Medication SIG (Take, Route, Frequency, Duration) Notes Start Date End Date Status Vitamin D 1000 UNIT Orally Not-Taking Probiotic Unknown K2 Plus D3 Not-Takin g Melatonin Not-Taking Vitamin D3 Not-Takin g dilTIAZem HCl ER 60mg Act nilton Valsartan Active Valsartan 160 MG 1 tablet Orally Once a day takes both Not-Taking hydroCHLOROthiazide 12.5 MG Orally Not-Taking Vitamin K2 takes both Not-Taki ng Valsartan-hydroCHLOROthiaz can 320-25 MG 1 tablet Orally Once a day for 30 days Not-Taking Immunizations Vaccine Route Administration Date Status Comme nts COVID-19 Moderna Vaccine Unknown 03/19/2022 Administered 1st 01/08/21 2nd 02/05/21 3rd 09/23/21 Social History Tobacco Use: Social History Observation Description Date Details (start date - stop date) Never Smoker NA - NA Alcohol Screen Question Answer Notes Did you have a drink containing alcohol in the p ast year? No Points 0 Interpretation Negative Tobacco use other than smoking: Question Answer Notes Are you an other tobacco user? No Tobacco Control (Standard) Question Answer Notes Tobacco use: Nonsmoker Problems Problem Type SNOMED Code ICD Code Onset Dates Problem Status W/U Status Risk Notes Problem Plantar wart (13073872) Plantar wart (B07.0) Active confirmed Problem [id number] Onychomycosis (B35.1) Active confirmed Vital Signs Blood pressure diastolic 80 mm Hg 11/15/2024 Height 5 ft 4 in in 11/15/2024 Blood pressure systolic 120 mm Hg 11/15/2024 Weight 142 lbs 11/15/2024 BMI 24.37 kg/m2 11/15/2024 Procedures Procedure Date Ordered Date Performed Result Body Sit e 99916-FFEORTU NAIL, 1-5 11/15/2024 N/A 07759-Orxa Destruction, 1-14 11/15/2024 N/A Encounters Encounter Location Date Provider Diagnosis [address] [phone] 12/07/2023 Gurvinder Salguero Tinea unguium B35.1 ; Skin disease L98.9 ; Ingrowing nail L60.0 ; Neuralgia and neuritis, unspecified M79.2 ; Calcaneal spur, right foot M77.31 ; Primary osteoarthritis, right ankle and foot M19.071 ; Metatarsalgia, right foot M77.41 ; Pain in right foot M79.671 ; Other viral warts B07.8 and Pain in left foot M79.[address] [address] 11/15/2024 Sarabjit Mitra Pain in left toe(s) M79.675 ; Onychomycosis B35.1 ; Right foot pain M79.671 ; Plantar wart B07.0 ; Pain in right ankle and joints of right foot M25.571 ; Bursitis of intermetatarsal bursa of right foot M77.51 and Metatarsalgia, right foot M77.[address] [address] 12/07/[address] [facility] [address] [address] 11/15/2024 Sarabjit Manriquez [facility] [address] [address] 11/17/2024 Sarabjit Manriquez Assessments Encounter Date Diagnosis (ICD Code) Assessment Notes Treatment Notes Treatment Clinical Notes Section Notes 12/07/2023 Tinea unguium (ICD-10 - B35.1) 11/15/2024 Pain in left toe(s) (ICD-10 - M79.675) 11/15/2024 Right foot pain (ICD-10 - M79.671) 11/15/2024 Onychomycosis (ICD-10 - B35.1) 12/07/2023 Skin disease (ICD-10 - L98.9) 12/07/2023 Ingrowing nail (ICD-10 - L60.0) 12/07/2023 Neuralgia and neuritis, unspecified (ICD-10 - M79.2) 11/15/2024 Plantar wart (ICD-10 - B07.0) 11/15/2024 Pain in right ankle and joints of right foot (ICD-10 - M25.571) 12/07/2023 Calcaneal spur, right foot (ICD-10 - M77.31) 12/07/2023 Primary osteoarthritis, right ankle and foot (ICD-10 - M19.071) 11/15/2024 Bursitis of intermetatarsal bursa of right foot (ICD-10 - M77.51) 11/15/2024 Metatarsalgia, right foot (ICD-10 - M77.41) 12/07/2023 Metatarsalgia, right foot (ICD-10 - M77.41) 12/07/2023 Pain in right foot (ICD-10 - M79.671) 12/07/2023 Other viral warts (ICD-10 - B07.8) 12/07/2023 Pain in left foot (ICD-10 - M79.672) Plan Of Treatment Pending Test Test Name Order Date X ray : Foot, right 3V 09/25/2022 [id number] NAIL, 1-5 11/15/2024 [id number]-Jlxp Destruction, 1-14 11/15/2024 95361-Aucmcvul Plate 12/08/2017 66396- Debride <25 sq cm 12/25/2017 Insurance Providers Payer Name Payer Address Payer Phone Subscriber Number Group Number Insured Name Patient Relationship to Insured Coverage Start Date Coverage End Date Medicare [employer] [address] [place] [address] [id number] Maday Draper Self - patient is the insured [employer] [address] [place] [address] [id number] Maday Draper Self - patient is the insured Medical (General) History Medical History History ICD Code Diverticulosis Measles Mumps Chicken pox Osteoporosis Reflux ( GERD) Hypertension Elevated LFTs Vitamin D deficiency Hypercalciuria Tubular adenoma of colon Cataracts Surgical History Surgery Date(Month/Year) hysterectomy 1986 hammer toe 1998
--- OUTSIDE RECORDS SUMMARY | 2024-12-02 13:58 | XMS_ITS ---
Author Organization [facility] Address [address] [facility] [place] [place] [address] Care Team Providers Care Orthophotography Technician Name Role Phone Spencer Stanley MD Primary Care Provider Sarabjit Caballero Unavailable [phone] Allergies Allergen (clinical drug ingredient) Drug/Non Drug [...] erythromycin Erythromycin itchy Drug Allergy A ctive REASON FOR VISIT Painful nail(s) aggravated by shoes causing difficulty standing/walking, Wart(s), Foot pain Medications Medication SIG (Take, Route, Frequency, Duration) Notes Start Date End Date Status Vitamin D 1000 UNIT Orally Not-Taking Probiotic Unknown K2 Plus D3 Not-Takin g Valsartan 160 MG 1 tablet Orally Once a day takes both Not-Taking hydroCHLOROthiazide 12.5 MG Orally Not-Taking Melatonin Not-Taking Vitamin D3 Not-Takin g Valsartan Active Vitamin K2 takes both Not-Taki ng Valsartan-hydroCHLOROthiaz can 320-25 MG 1 tablet Orally Once a day for 30 days Not-Taking dilTIAZem HCl ER 60mg Act nilton Social History Tobacco Use: Social History Observation [...] W/U Status Risk Notes Problem Plantar wart (74429406) Plantar wart (B07.0) Active confirmed Problem 389234915 Onychomycosis (B35.1) Active confirmed Vital Signs Height 5 ft 4 in in 11/15/2024 Weight 142 lbs 11/15/2024 BMI 24.37 kg/m2 11/15/2024 Blood pressure systolic 120 mm Hg 11/15/19 25 Blood pressure diastolic 80 mm Hg 025 Procedures Procedure Date Ordered Date Performed Result Body Sit e 75215-SVAVORM NAIL, 1-11/15/2024 N/A 94166-Phzn Destruction, 11-2211/15/2024 N/A Encounters Encounter Location Date Provider Diagnosis [facility] [address] [address] 11/15/2024 Sarabjit Manriquez Pain in left toe(s) M79.675 ; Onychomycosis B35.1 ; Right foot pain M79.671 ; Plantar wart B07.0 ; Pain in right ankle and joints of right foot M25.571 ; Bursitis of intermetatarsal bursa of right foot M77.51 and Metatarsalgia, right foot M77.41 Assessments Encounter Date Diagnosis (ICD Code) Assessment Notes Treatment Notes Treatment Clinical Notes Section Notes 11/15/2024 Pain in left toe(s) (ICD-10 - M79.675) 11/15/2024 Onychomycosis (ICD-10 - B35.1) 11/15/2024 Right foot pain (ICD-10 - M79.671) 11/15/2024 Plantar wart (ICD-10 - B07.0) 11/15/2024 Pain in right ankle and joints of right foot (ICD-10 - M25.571) 11/15/2024 Bursitis of intermetatarsal bursa of right foot (ICD-10 - M77.51) 11/15/2024 Metatarsalgia, right foot (ICD-10 - M77.41) Plan Of Treatment Pending Test Test Name Order Date 61311-YETXQTK NAIL, 1-5 11/15/2024 40180-Vmpd Destruction, 1-11/15/2024 Next Appt Details Follow Up: prn, Reason: Procedure Notes * Category Sub-Category Detail Notes Wart Treatment Procedure Verruca, as desc ribed in exam, were debrided to pin-point bleeding margins with sterile 15 surgical blade, silver nitrate chemocautery applied, recomm. immune-boosting meds such as zinc, recomm. follow up with topical chemosurgical agents, Pt defers any other forms of tx - 57880 Debride Nails 1-5 Procedure: Due to the cli nical pathology outlined in the exam findings, performance of this nail treatment is medically necessary as its management by an unskilled/untrained nonprofessional would put this patients foot and overall health at risk. Therefore, debridement to affected nail(s), as described in exam ( 1), was performed exclusively by the physician of record to reduce/remove overall nail length, girth, thickness, subungual debris, and necrotic tissue, by manual and/or electrical means through the use of a nail nipper and/or dremel stylegrinder, to a more viable healthy nail plate or bed tissue 5 nails or fewer in number. Silver nitrate was used for any petechial bleeding as necessary. Definitive antifungal treatment options, both pharmaceutical and surgical, have been reviewed and discussed with the patient. The patient solely prefers the use of intermittent/as needed professional debridement services for their nail condition and understands that additional periodic treatments may be required as necessary to maintain effective symptomatic relief - 32435 Progress Notes * Maday ARBOLEDA MDOB:[birth year] (74 yo F)Acc No.[id number]:11/15/2024 Progress Note Patient:?Maday ARBOLEDA Provider:?Sarabjit Manriquez DPM :1950???Age:74 Y???Sex:Female D ate:11/15/2024 Address:[address] [place] [address], [place], [id number] Pcp:Spencer Stanley MD Subjective: * Chief Complaints: * ???Painful nail(s) aggravate d by shoes causing difficulty standing/walkingWart(s)Foot pain * HPI: ???Painful Nails:?Pt States Last PCP Visit:?Date:?11/14/2024 ???Foot Pain:?Location:?Bottom, Forefoot, RIGHT.?Duration:?several weeks.?Course:?worse.?Treatments:?rest/alter normal daily activity, innersoles.? * ROS:?General/Constitutional:?Nausea?denies, denies.?Vomiting?denies, denies.?Hunger Thirst?denies, denies.?Loss appetite?denies, denies.?Chills?denies, denies.?Fatigue?denies, denies.?Fever?denies, denies.?Night Sweats denies, denies.?Unexplained weight loss?denies, denies.?Unexplained weight gain?denies, denies.?HEENTM:?Dentures?denies, denies.?Dizziness?denies, denies.?Glasses/contacts?admits.?Retinopathy?denies, denies.?Blurred/double vision?denies, denies.?TMJ?denies, denies.?Discharge/drainage?denies, denies. Implants?denies, denies.?Sore throat?denies, denies.?Dental implants?admits.?Hard of hearing ?denies, denies.?Difficulty chewing/swallowing/speaking?denies, denies.?Nose bleeds?denies, denies.?Sore mouth?denies, denies.?Respiratory:?On Oxygen?denies, denies.?Pneumonia/pleurisy?denies, denies.?Bronchitis?denies, denies.?Emphysema?denies, denies.?Coughing?denies, denies.?Cough blood?denies, denies.?Shortness of breath?denies, denies.?Wheezing?denies, denies.?Cardiovascular:?Pacemaker?denies, denies.?MVP?denies, denies.?WPW?denies, denies.?CHF?denies, denies.?Heart attack?denies, denies.?Septal defect?denies, denies.?Rapid beat?denies, denies.?Chest pain ?denies, denies.?Atrial Fib.?denies, denies.?Murmur/Palpitations?denies, denies.?Gastrointestinal:?Hemorrhoids?denies, denies.?Stomach/Abdominal pain?denies, denies.?Dark blood stool?denies, denies.?Irritable bowel ?denies, denies.?Constipation?denies, denies.?Diarrhea?denies, denies.?Hematology:?Swelling?denies, denies.?Clots?denies, denies.?Varicose Veins?denies, denies.?Bruising?denies, denies.?Bleeding problem?denies, denies.?Genitourinary:?Blood urine?denies, denies.?Frequent/Painfu/urination/bladder control?denies, denies.?Kidney stones?admits.?Infection (UTI)?denies, denies.?Nephropathy?denies, denies.?sex trans dis (STD)?denies, denies.?Prostate?denies, denies.?Musculoskeletal:?Hammertoes?denies, denies.?Bunions?denies, denies.?Back Pain?denies, denies.?Muscle Cramps/ Resting?denies, denies.?Muscle cramps / walking?denies, denies.?Generalized aches and pains?denies, denies.?Weakness?denies, denies.?Integ.:?[place]?denies, denies.?Scars?denies, denies.?Corns/calluses?denies, denies.?Ingrown nails?denies, denies.?Painful nails?denies, denies.?Open Sores?denies, denies.?Rashes?denies, denies.?Neurologic:?Difficulty sleeping?denies, denies.?Brain disorder?denies, denies.?Numbness?denies, denies.?Balance trouble?denies, denies.?Confusion?denies, denies.?Fainting/blackouts?denies, denies.?Tingling?denies, denies.?Tremors?denies, denies.? * Medical History:? * Surgical History:?hysterecto my 1987hammer toe 1997 * Hospitalization/Major Diagno stic Procedure:?Denies Past Hospitalization * Family History:?Mother: dece ased, diagnosed with Unspecified essential hypertension.?Father: , Cancer, diagnosed with Other malignant neoplasm of unspecified site.?Siblings: Sister, diagnosed with Family history of arthritis.?Friend(s): alive.? * Social History:?Tobacco Use:?Tobacco use other than smoking?Are you an other tobacco user??No ?Tobacco Control (Standard)?Tobacco use:?Nonsmoker ???Drugs/Alcohol:?Drugs?Have you used drugs other than those for medical reasons in the past 12 months??No ?Alcohol Screen?Did you have a drink containing alcohol in the past year??No ?Points?0 ?Interpretation?Negative ???Miscellaneous:?Caffeine: yes, frequency:2 cups per day. ?Children: no. ?Exercise: yes, bike riding, kayaking, walking, gardening/yard work, yoga. ?Marital status: . 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 * Medications:?TakingdilTIAZem HCl ER , Notes to Pharmacist: 60mgValsartan Taking dilTIAZem HCl ER , Notes to Pharmacist: 60mgTaking Valsartan Not- Taking/PRNMelatonin Vitamin D3 Vitamin K2 , Notes to Pharmacist: takes bothValsartan- hydroCHLOROthiazide 320-25 MG Tablet 1 tablet Orally Once a day Valsartan 160 MG Tablet 1 tablet Orally Once a day , Notes to Pharmacist: takes bothhydroCHLOROthiazide 12.5 MG Tablet Orally K2 Plus D3 Vitamin D 1000 UNIT Tablet Orally Not-Taking/PRN Melatonin Not- Taking/PRN Vitamin D3 Not-Taking/PRN Vitamin K2 , Notes to Pharmacist: takes bothNot- Taking/PRN Valsartan-hydroCHLOROthiazide 320-25 MG Tablet 1 tablet Orally Once a day Not-Taking/PRN Valsartan 160 MG Tablet 1 tablet Orally Once a day , Notes to Pharmacist: takes bothNot-Taking/PRN hydroCHLOROthiazide 12.5 MG Tablet Orally Not-Taking/PRN K2 Plus D3 Not-Taking/PRN Vitamin D 1000 UNIT Tablet Orally UnknownProbiotic Medication List reviewed and reconciled with the patientUnknown Probiotic Medication List reviewed and reconciled with the patient * Allergies:?Tetracycline HCl: Itching - AllergyEPINEPHrine: Rapid Heart rate - Side EffectsAdhesive Tape: rash - AllergyErythromycin: itchyBiaxin: itchyAzithromycin: itchyNovocain: Rapid Heart rateyes[Allergies Verified] Objective: * Vitals:?Ht: 5 ft 4 in, Wt:14 2, BMI: 24.37, Shoe size:8, BP:120/80mm Hg, Wt-k.41 kg. * Examination: ???Nails: ?NAILS are:?Elongated, overgrown, dystrophic, lytic, greater than 3mm thick, discolored and friable with crumbly malodorous subungual debris, with pain on palpation, T1.?Dermatologic: ?VERRUCA:?Reveals a Single , multi-loculated , mosaic-patterned, round, raised, flat-topped, petechial bleeding papule(s), with cauliflower appearance and interruption of skin lines, pain to lateral compression, and size estimated at 2-3mm diameter, plantar Forefoot, RIGHT.?Orthopedic: ?MUSCLE STRENGTH:?5/5 all groups in a symmetrical fashion, B/L.?GAIT ABNORMALITY:?antalgic.?FOOT MORPHOLOGY:?Pes Cavus structure.?MPJ PATHOLOGY:? Pain, swelling, and inflammation to plantar?2nd, 3rd, MPJ(s), RIGHT, No MPJ pain with ROM, [ - ] Ecchymosis.?FOOTWEAR:?worn, OT were inspected and noted to be severely worn , in poor condition not giving proper support at the present time.?Neurological: ?TINEL'S COMPRESSION:? Negative tarsal tunnel, eliceo pedis, and medial calcaneal nerves, Right.?Neuroma Pain: ?PALPATION:?No interspace pain noted on palpation.? Assessment: * Assessment: 1.?Pain in left toe(s) - M79 .675???2.?Right foot pain - M79.671???3.?Onychomycosis - B35.1 (Primary)???4.?Plantar wart - B07.0???Specify :RIGHT???5.?Pain in right ankle and joints of right foot - M25.571???6.?Bursitis of intermetatarsal bursa of right foot - M77.51???Specify :Acute problem, Uncomplicated (3)???7.?Metatarsalgia, right foot - M77.41???Specify :Acute problem, Uncomplicated (3)??? Plan: * Treatment: 2.?Plantar wart?Procedure: 83000-Viaf Destruction, 1-14 * Procedures:?Debride Nails 1-5:?Procedure:?Due to the clinical pathology outlined in the exam findings, performance of this nail treatment is medically necessary as its management by an unskilled/untrained nonprofessional would put this patients foot and overall health at risk. Therefore, debridement to affected nail(s), as described in exam ( 1), was performed exclusively by the physician of record to reduce/remove overall nail length, girth, thickness, subungual debris, and necrotic tissue, by manual and/or electrical means through the use of a nail nipper and/or dremel stylegrinder, to a more viable healthy nail plate or bed tissue 5 nails or fewer in number. Silver nitrate was used for any petechial bleeding as necessary. Definitive antifungal treatment options, both pharmaceutical and surgical, have been reviewed and discussed with the patient. The patient solely prefers the use of intermittent/as needed professional debridement services for their nail condition and understands that additional periodic treatments may be required as necessary to maintain effective symptomatic relief - 99698.?Wart Treatment:?Procedure?Verruca, as described in exam, were debrided to pin-point bleeding margins with sterile 15 surgical blade, silver nitrate chemocautery applied, recomm. immune-boosting meds such as zinc, recomm. follow up with topical chemosurgical agents, Pt defers any other forms of tx - 83323.? * Procedure Codes:?59794 DEBRI DE NAIL, 1-5, Modifiers: XS 94979 Wart Destruction, 1-14, Modifiers: XS 1036F TOBACCO NON-USER * Preventive Medicine:? ??Counseling:?Discussion:?-13: Office or other outpatient visit for the evaluation and management of an established patient, which required a medically appropriate history and/or examination and LOW level of DECISION MAKING for: 1 STABLE ACUTE UNCOMPLICATED PROBLEM, 2 OR MORE MINOR PROBLEMS, OR 1 STABLE CHRONIC PROBLEM, THAT POSE(S) A LOW RISK FOR MORBIDITY/MORTALITY. The visit on the day of the encounter encompassed interpreting the data and educating the patient as to the nature of their condition, treatment options available according to their individual PMH, meds, allergies, and overall health/living conditions, as well as any potential risks or complications that may occur from a failure to adhere to, and participate in, the recommended course of therapy. The discussion included a complete verbal, and/or written explanation of the examination results, any x-rays taken, the proposed diagnosis, and outline of the treatment plan. A schedule for future care needs was also explained. The patient verbalized an understanding of the instructions at this time and agreed to be an active participant in their treatment. If the patient should think of any questions or concerns after the visit, I have encouraged the patient to call the office.?Metatarsalgea:?I explained to the patient the possible etiologies of their Metatarsalgea Foot pain, including foot type/shoegear/activity level/exercise routine and the risks/benefits of all the different treatment options for pain including: No treatment at all, Rest, Ice, NSAIDs(only if well tolerated after meals), New/supportive Shoe gear, Strappings and Tapings, Foot/Ankle AFO Bracing, Stretching exercises, Deep Tissue Massage, Arch support/shoe inserts, Custom orthoses, Topical analgesics including Aspercream/Voltaren gel, Physical Therapy, Cortisone injection therapy, EPAT/ESWT. Advantages and disadvantages of each option were discussed and the patients questions re: shoe gear, custom vs prefabricated inserts, activity level, PO vs Topical medications (and their respective potential complications/drug interactions/side effects), and consistency in home treatment regimens for optimal success were answered to their verbally confirmed satisfaction.?Orthotics:?I explained to the patient the benefits of OT use. I explained that orthoses are medically necessary to decrease the foot pain through proper mechanical control, support of their foot, decrease pain under the painful metatarsal by supplementing the soft tissue, cushion the forefoot by supplementing the soft tissue, Prefabricated orthoses ( Pedag ( 38 ), ), were dispensed. The inserts were comfortably fit to the patients feet in both weight-bearing and non-weight bearing attitudes. The patient was instructed to increase the amount of time they were wearing the inserts, starting with one hour the first day and gradually increasing the amount of time worn until they are using them aircraft instrument mechanic and in all activities. They were asked to call the office if any signs of irritation were noted such as redness, blistering or callous formation. Instuctions were given for their usage and proper break-in/wear/care. Pt expressed comfort with and tolerance to inserts dispensed.?P.R.I.C.E.:?The patient was counseled on the use of P.R.I.C.E. and NSAIDS (if well tolerated) to aid in the recovery from their painful condition.?Podiatric Surgery Counseling:?Surgical procedures to treat the patients foot problem were discussed. We reviewed the risks of the procedure (described below) vs not having the procedure (persistent pain, deformity, risk for skin ulceration/infection, loss of toe). We discussed the potential procedure complications including, but not limited to: pain, swelling, bleeding, scarring, numbness, infection, delayed/non healing, floppy/unstable/shorthened toe, recurrence, failure of the procedure, overcorrection leading to plantarflexed/downward positioned toe, recurrence, need for further surgery, as well as the possibility for loss of the toe itself. We discussed the use of IV/Local anesthesia, and the usual post-op course for healing. No guarentees were given. The patient verbally indicated a full understanding of the above conversation, and any other of their questions were answered to their satisfaction.?Shoe Gear Counseling:?The patient and I reviewed the types of shoes they should be wearing. My recommendation included obtaining a well-fitted shoe with a good supportive, non-foldable nor twistable sole, plenty of toe/room for the forefoot, and proper arch support. Based on todays examination, I recommended the patient look for new shoes, by having their feet professionally measured. We discussed that generally the best time of the day for a shoe fitting is the afternoon. Different shoes types and brands to best match the patients occupation and vocation were discussed. Specific brand selection will be up to the patient, their individual foot condition/deformities, and fit. The patient and I reviewed the standard new shoe break in period by wearing them for a few hours a day while checking for redness or sores as wear time is increased. The patient verbally confirmed to understanding the information discussed.?Steriod Injection:?I explained that a steroid and local anesthetic injections are administered to relieve pain and inflammation and thereby meant to improve function. I explained the possible complications including but not limited to signs/symptoms of steroid flare, infection, bruising, atrophy, discoloration of skin, change/deviation in toe position, and that additional injections may be necessary, cortisone post-injection informative educational handout was dispensed to and reviewed with the patient, In order to prevent any compromise of an effective immune response, it was recommended the patient refrain from any vaccine therapy for the month before or after injection. Patient verbally confirmed understanding the previously mentioned protocol.? ??Screening/Special Tests:?Fall Risk?Screening:?No falls in the past year ?FALLS: Screening for Future Fall Risk?Have you had any falls with injury in the past year??No * Follow Up:?prn * Images: * Sign off status: Completed true * Provider:?Sarabjit Manriquez DPM Date:?2024 Generated for Kwaku hernández/Jameson/Yousuf on:?12/02/2024 01:58 PM EST History and Physical Notes * HPI (History of Present Illness) Category Sub-Category Detail Notes Category Not es Painful Nails Pt States Last PCP Visit: Date:: 11/14/2024 Foot Pain Location: Bottom, Forefoot, RIGHT Duration: several weeks Course: worse Treatments: rest/alter normal da rogelio activity, innersoles Examination Category Sub-Category Detail Notes Category Not es Neuroma Pain PALPATION: No interspace pa in noted on palpation Neurological TINEL'S COMPRESSION: Negative ta rsal tunnel, eliceo pedis, and medial calcaneal nerves, Right Dermatologic VERRUCA: Reveals a Single , multi-loculated , mosaic-patterned, round, raised, flat-topped, petechial bleeding papule(s), with cauliflower appearance and interruption of skin lines, pain to lateral compression, and size estimated at 2-3mm diameter, plantar Forefoot, RIGHT Orthopedic GAIT ABNORMALITY: antalgic FOOT MORPHOLOGY: Pes Cavus structure FOOTWEAR: worn, OT were inspec gustabo and noted to be severely worn , in poor condition not giving proper support at the present time MPJ PATHOLOGY: Pain, swelling, and inflammation to plantar 2nd, 3rd, MPJ(s), RIGHT, No MPJ pain with ROM, [ - ] Ecchymosis MUSCLE STRENGTH: 5/5 all groups in a symmetrical fashion, B/L Nails NAILS are: Elongated, overg rown, dystrophic, lytic, greater than 3mm thick, discolored and friable with crumbly malodorous subungual debris, with pain on palpation, T1
--- OUTSIDE RECORDS SUMMARY | 2024-12-02 13:58 | XMS_ITS ---
Author Organization [facility] Address [address] [place] [address] Care Team Providers Care Talent Development Consultant Name Role Phone Spencer Stanley MD Primary Care Provider Sarabjit Caballero [phone] REASON FOR VISIT 38 pedags Encounters Encounter Location Date Provider Diagnosis [facility] [address] [place] [address] 11/17/2024 Sarabjit Manriquez Plan Of Treatment No Information Progress Notes * Maday ARBOLEDA MDOB:[birth year] (74 yo F)Acc No.[id number]:11/17/2024 Patient:?Maday ARBOLEDA :1950???Age:74 Y???Sex:Female Address:[place] [address] * true * Date:? Generated for Printi edgar/Jameson/eTransmitting on:?12/02/2024 01:57 PM EST
--- OUTSIDE RECORDS SUMMARY | 2024-12-02 13:58 | XMS_ITS ---
Author Organization [facility] Address [address] [place] [address] Care Team Providers Care Impregnating Helper Name Role Phone Spencer Stanley MD Primary Care Provider Sarabjit Caballero [phone] REASON FOR VISIT BUY Pedag [employer] (red) #38 / L 8 Encounters Encounter Location Date Provider Diagnosis [facility] [address] [place] [address] 11/15/2024 Sarabjit Manriquez Plan Of Treatment No Information Progress Notes * Maday ARBOLEDA MDOB:[birth year] (74 yo F)Acc No.[id number]:11/15/2024 Patient:?Maday ARBOLEDA :1950???Age:74 Y???Sex:Female Address:[address] [place] [address] [place] [address] * true * Date:? Generated for Printi ng/Farosag/eTransmitting on:?12/02/2024 01:57 PM EST
--- OUTSIDE RECORDS SUMMARY | 2024-12-02 13:58 | XMS_ITS | Patient Health Record ---
Author Organization [facility] Address [address] [place] [address] Care Team Providers Care Manager Vehicle Name Role Phone Spencer Stanley MD Primary Care Provider Dany Regan [phone] ALLERGIES Allergen (clinical drug ingredient) Drug/Non Drug Allergy documented on EMR Reaction Allergy Type Onset Date Status tetracycline Tetracycline HCl Unknown Drug Allergy Active lidocaine Lidocaine Unknown Drug Allergy Active REASON FOR REFERRAL No Information MEDICATIONS Medication SIG (Take, Route, Frequency, Duration) Notes Start Date End Date Status Motrin IB 200 MG 1 tablet with food or milk as needed Orally as needed Active Vitamin K2 100 MCG capsult Orally once a day Active Vitamin D 1000 UNIT 1 tablet Orally Once a day Active Glucosamine Chondr 1500 Complx - as directed Orally Active Probiotic - as directed Orally Active hydroCHLOROthiazide 12.5 MG 1 tablet Orally Once a day for osteoporosis Active IMMUNIZATIONS Vaccine Route Administration Date Status Comme nts Influenza Unknown 07/10/2020 Administered SOCIAL HISTORY Sex Assigned At : Social History Observation Description Sex Assigned At Unknown PROBLEMS Problem Type ICD Code Onset Dates Problem Status W/U Status Risk SNOMED Code Notes Problem Diverticulitis of large intestine without perforation or abscess without bleeding (K57.32) Active confirmed 4358703 Problem Encounter for screening for malignant neoplasm of colon (Z12.11) Active confirmed 034197013 Problem Gastroesophageal reflux disease without esophagitis (K21.9) Active confirmed 205984484 Problem Elevated liver enzymes (R74.8) Active confirmed 593944551 Problem NSAID long-term use (Z79.1) Active confirmed 869737730 Problem Hx of adenomatous colonic polyps (Z86.010) Active confirmed 839490904 PLAN OF TREATMENT Pending Test Test Name Order Date LIVER PROFILE 11/02/2018 Pathology 04/15/2021 Future Test Test Name Order Date UPPER GI ENDOSCOPY 11/28/2014 COLONOSCOPY 11/28/2014 COLONOSCOPY 03/12/2021 Next Appt Details Provider Name:Dany Willis , 12/06/2024 10:10:00 AM, [address], [address], [place], [address], Insurance Providers Payer Name Payer Address Payer Phone Subscriber Number Group Number Insured Name Patient Relationship to Insured Coverage Start Date Coverage End Date MEDICARE OF [place] [address] [place] [address] [id number] LICHA ARBOLEDA Self - patient is the insured MEDEX ATTN CLAIMS [address] [place] [address] [id number] LICHA ARBOLEDA Self - patient is the insured MEDICAL (GENERAL) HISTORY Medical History History ICD Code 2003 and 05/07/2009 Colonoscopy--negative for polyps Tubular adenoma--removed in 2000 Internal hemorrhoids Diverticulosis-mild divertic ulitis of the distal descending/proximal sigmoid colon described on a CT scan in 12/2012, 11/2016, and 09/2018 GERD--EGD in 2003-small HH--no esophagit is, no Arevalo's Hiatal hernia Denies CO,DM,CVA,Lung disease,renal dise ase Osteoporosis Negative abdominal ultrasound in 01/2015--colonoscopy with sma ll tubular adenomas removed, diverticulosis, and internal hemorrhoids 01/2015-EGD with a small hiat al hernia, but no esophagitis nor Arevalo's esophagus Hx of kidney stones Surgical History Surgery Date(Month/Year) Hysterectomy w/removal of 1 ovary Hammer toe
== END 2024-12-02 12:34 | disposition home or self-care (01) ==
PROVIDERS: PCP Internal Medicine; Visit Provider Internal Medicine Hypertension Specialist
DX: I10 Essential (primary) hypertension (principal)
CPT/HCPCS: 99214

== ENCOUNTER → 2024-12-02 11:46 | Outpatient (BNVA) | payer MEDICARE, SELFPAY | PROVIDERS: PCP Internal Medicine; Visit Provider Internal Medicine Hypertension Specialist | DX: I10 Essential (primary) hypertension (principal) | CPT/HCPCS: 99212 ==

== ENCOUNTER 2024-12-19 11:17 | Outpatient (AMB) | payer MEDICARE, SELFPAY ==
--- NOTE | 2024-12-19 11:18 | HO.NEPHOV ---
Vital Signs 12/19/24 11:20 Height 5 ft 3 in Weight 141 lb 6 oz BMI 25.0 BP 130/80 Blood Pressure Location Lt brachial Position Sitting Pulse 82 Pulse Source Pulse Oximeter Pulse Oximetry (%) 98 Oxygen Delivery Method Room Air Intake Visit Reasons: Pt requested sooner appt [employer] Required: No Accompanied by: Self / Same As Patient Allergies tetracycline [TETRACYCLINE] Allergy (Unknown, Verified 12/19/24 11:20) Rash, itchy epinephrine Allergy (Unknown, Uncoded 08/14/23 14:46) heart palpitations HPI Comments Details: Maday was seen in follow up for hyponatremia and hypertension. She is known to hypertension for a while and has been on hydrochlorothiazide bit she had been taking regularly without much side effects. She also is known to renal calculi. Her blood pressure started getting fluctuant, more so after COVID infection. She had to come off hydrochlorothiazide given hyponatremia, which has normalized now. Subsequently she was started on valsartan and the dose of which was maximized now. She had been tolerating that without much side effects. Her blood pressure control continued to be suboptimal with intermittent resting tachycardia and chest pressure symptoms without any reason. She was started on metoprolol of the time but she developed emotional lability as well as tiredness and it was discontinued. She has been started on 2.5 mg amlodipine at that time. She has been having some headache/ foggy head which she was attributing to amlodipine. She is not known to have any underlying thyroid disorders. She has no history of renal failure, liver disease or heart failure. She has had hyponatremia remotely. She denied any diagnosis of depression but gets anxious at times. She is not known to have any hyperkalemia, edema. She denies drinking excessive fluid or alcohol. She has no history of any malignancy. Diltiazem was eventually added to the regimen but she was not tolerating the higher dose. Dose was reduced recently and she feels better. She is also complaining about ringing in the ear with a band like headache intermittently. [facility] Medical History (Updated 12/02/24 @ 12:40 by Seven Treadwell MD) Hypertension History of kidney stones Hiatal hernia Osteoporosis GERD (gastroesophageal reflux disease) Surgical History History of blepharoplasty History of hammer toe correction Hx of hysterectomy History of esophagogastroduodenoscopy (EGD) Hx of colonoscopy Family History Mother Hypertension Kidney stone Father Cancer Social History Do you presently have visiting nurse or other home services: No Alcohol intake: never Patient Tobacco Use Status: Former Tobacco user Review of Systems Const All systems reviewed & are unremarkable except as noted in HPI and below Physical Exam Vital Signs: Last Vital Signs Pulse 82 12/19/24 11:20 BP 130/80 12/19/24 11:20 Pulse Ox 98 12/19/24 11:20 Oxygen Delivery Method Room Air 12/19/24 11:20 BMI result Body Mass Index 25.0 Const General: comfortable and no acute distress Orientation/consciousness: patient oriented x3 HEENT Head: Yes normocephalic Mouth: Normal oral and palatal mucosa present Eyes EOM: EOMs intact bilaterally Neck Neck: Yes supple Resp Auscultation: clear to auscultation bilaterally Cardio Jugular venous distension: no JVD Rate: regular rate GI Palpation (GI): Soft to palpation Auscultation: normal bowel sounds General: Yes no CVA tenderness Back/Spine/Pelvis Back: no CVA tenderness Skin General skin exam: no rashes or lesions noted Neuro General: patient oriented x3 and moves all extremities Extrem General: Yes no pedal edema Results Reviewed Nephrology Results: Sodium 137 mmol/L (135-145) 11/14/24 Potassium 4.0 mmol/L (3.3-5.1) 11/14/24 Chloride 105 mmol/L (96-108) 11/14/24 Carbon Dioxide 25 mmol/L (22-29) 11/14/24 Assessment & Plan Assessment & Plan (1) Hypertension: Code(s): I10 - Essential (primary) hypertension Category: Medical Qualifiers: Hypertension type: primary hypertension Qualified Code(s): I10 - Essential (primary) hypertension (2) Hyponatremia: Code(s): E87.1 - Hypo-osmolality and hyponatremia Category: Medical Plan Maday has longstanding hypertension which is better controlled now. She did not tolerate metoprolol due to development of emotional lability. She is currently on valsartan 320 mg daily. I asked her to keep off hydrochlorothiazide for now. She has history of renal calculi. She should restrict her fluid intake to 48 oz in 24 hours. She has strong family history hypertension. She denied any other vascular risk factors or active vascular disease. She may need Doppler of her renal arteries with time, if needed. She can continue current dose of Diltiazem. She should continue low sodium in the diet. If her BP starts going down, we can cut back on her medications. She may need MRI brain/ Neurology & ENT consults. Answered all questions. Follow-up appointment given Medications: Refilled diltiazem HCl ER Take it at night 120 mg PO DAILY 30 caps 6RF Coding Level of Care Code Est Pt Level 4 (95437) Diagnoses Primary hypertension I10 Hypertension type: primary hypertension Hyponatremia E87.1
[2024-12-19 11:20] VITALS: BP 130/80; PULSE 82; O2SAT 98; BMI 25.0
--- OUTSIDE RECORDS SUMMARY | 2024-12-19 12:32 | XMS_ITS ---
Author Organization Spencer Stanley MD Address [address] [place] [phone] Care Team Providers Care Head Of Mathematics Name Role Phone Spencer Stanley Primary Care Provider Allergies Allergen (clinical drug ingredient) Drug/Non Drug Allergy documented on EMR Reaction Allergy Type Onset Date Status epinephrine (uncoded) heart palpitations Allergy Active tetracycline tetracycline (uncoded) rash Allergy Active REASON FOR VISIT HBP, BP this afternoon is 177/110 but did not take Diltazen 60mg last night because she does not feel well foggy , Video [phone] Medications Medication SIG (Take, Route, Frequency, Duration) Notes Start Date End Date Status Vistaril 25 MG 1 capsule as needed Orally every 8 hrs as needed for 30 days 2021 Not-Taking Vitamin K (Phytonadione) Not-Taking Valsartan 320 MG 1 tablet Orally Once a day Active Finacea 15 % 1 application School Business Manager ally ONCE A DAY IN THE EVENING [...] Omeprazole 20 MG TAKE 1 CAPSULE BY [facility] EVERY DAY 30 MINUTES BEFORE BREAKFAST for 90 Not-Taki ng Melatonin 5 MG 1 tablet at bedtime and a 1mg tablet Orally at bedtime Not-Taking Vitamin D-3 1000 UNIT 1 capsule Orally O nce a day Not-Taking Vital Signs Height 64 in 11/25/2024 eight at home is 144 BP 177/ 110 Encounters Encounter Location Date Provider Diagnosis Spencer Stanley MD [address] [place] [phone] 11/25/2024 Spencer Stanley Essential hypertension I10 Assessments [...] Details Provider Name:Spencer correa, 01/05/2025 07:45:00 AM, [address] [place] [address], [place] [address], [place], [place], [phone], Provider Name:Spencer correa, 01/12/2025 09:30:00 AM, [address] [place] [address], [place] [address], [place], [place], [phone], Progress Notes * Maday ARBOLEDA MDOB:[birth year] (74 yo F)Acc No.[id number]:11/25/2024 Patient:?Maday ARBOLEDA Provider:?Spencer Stanley MD :1950???Age:74 Y???Sex:Female D ate:11/25/2024 Address:[address] [place] [address], [place], [phone] Subjective: * Chief Complaints: * ???1. HBP. 2. BP this aftern oon is 177/110 but did not take Diltazen 60mg last night because she does not feel well foggy . 3. Video [phone]. * HPI: ???Symptom(s):?Telehealth?Location of provider rendering services:?10 [...] tolerat e doxycycline without difficulty, Refuses flu krqw25-04-06, colonoscopy 04/2009 - adenoma due in 5 [...] MD Date:?0 11/25/2024 Generated for Kwaku hernández/Jameson/Yousuf on:?12/19/2024 12:32 PM EST History and Physical Notes * HPI (History of Present Illness) Category Sub-Category Detail Notes Category Not es Symptom(s) Telehealth Location of [facility] ider rendering services:: [address], [address] [...]
--- OUTSIDE RECORDS SUMMARY | 2024-12-19 12:32 | XMS_ITS ---
Author Organization Spencer Stanley MD Address [address] [place] [phone] Care Team Providers Care Pecan Mallow Dipper Name Role Phone Spencer Stanley Primary Care [...] Omeprazole 20 MG TAKE 1 CAPSULE BY [facility] EVERY DAY 30 MINUTES BEFORE BREAKFAST for 90 Not-Taki ng Tylenol 8 Hour Arthritis Pain 650 MG 2 tablets as needed Orally every 8 hrs Not-Taking Vitamin D-3 1000 UNIT 1 capsule Orally O nce a day Not-Taking Valtrex 500 MG 1 tablet Orally ever y 12 hrs for 10 day(s) Not-Taking Finacea 15 % 1 application Coffee Machine Technician ally ONCE A DAY IN THE EVENING [...] Location Date Provider Diagnosis Spencer Stanley MD [address] [place] [phone] 11/14/2024 Spencer Stanley Viral URI J06.9 Assessments [...] Details Provider Name:Spencer correa, 01/05/2025 07:45:00 AM, [address] [place] [address], [address], [phone], Provider Name:Spencer correa, 01/12/2025 09:30:00 AM, [address] [place] [address], [place] [address], [place], [place], [phone], Progress Notes * Maday ARBOLEDA MDOB:[birth year] (74 yo F)Acc No.[id number]:11/14/2024 Progress Notes Patient:?Maday Arboleda Provider:?Spencer Stanley MD :1950???Age:74 Y???Sex:Female D ate:11/14/2024 Address:[address] [place] [address] [place], [id number] Subjective: * Chief Complaints: * ???post nasal [...] MD Date:?0 11/14/2024 Generated for Kwaku hernández/Jameson/Yousuf on:?12/19/2024 12:32 PM [...]
--- OUTSIDE RECORDS SUMMARY | 2024-12-19 12:32 | XMS_ITS ---
Author Organization Spencer Stanley MD Address [address] [place] [phone] Care Team Providers Care Field Technical Specialist Name Role Phone Spencer Stanley Primary Care [...] 20 MG TAKE 1 CAPSULE BY [facility] EVERY DAY 30 MINUTES BEFORE BREAKFAST [...] (Phytonadione) Not-Taking Finacea 15 % 1 application Team Guide ally ONCE A DAY IN THE EVENING Active Vital Signs Blood pressure systolic 164 mm Hg 12/13/19 25 Blood pressure diastolic 80 mm Hg 025 Heart Rate 60 /min 12/13/2024 Height 64 in 12/13/2024 Weight 140 lbs 12/13/2024 BMI 24.03 kg/m2 12/13/2024 weight is down 4 pounds [facility] e 11-14-24 Encounters Encounter Location Date Provider Diagnosis Spencer Stanley MD [address] [place], [place] [phone] 12/13/2024 Spencer Stanley Essential hypertension I10 and [...] observe Next Appt Details Provider Name:Spencer correa, 01/05/2025 07:45:00 AM, [address], [address], [place], [place], [phone], Provider Name:Spencer correa, 01/12/2025 09:30:00 AM, [address], [address], [place], [phone], Progress Notes * Maday ARBOLEDA MDOB:[birth year] (74 yo F)Acc No.[id number]:12/13/2024 Progress Notes Patient:?ROBLES Maday Mario Provider:?Spencer Stanley MD :1950???Age:74 Y???Sex:Female D ate:12/13/2024 Address:[address] [place] [address], [phone] Subjective: * Chief Complaints: * ???Pain under left rib that comes and goes x years getting worseDoes not feel right on the BP med * HPI: ???Symptom(s):?patient is a 74 yo female here with complaint of left rib paoin, feels like a stitch in the muscles by her xiphoid. is worse with activity. feeling tired. dr mckniney said she had a ct scan in june. has had this minor for a couple years. worse but skeleton is changing. felt sudden pain in rib on laying down to do yoga/ felt good all last week and then getting headache and stomachy. * ROS:?General/Constitutional:?Denies?Chills.?Denies?Fatigue.?Denies?Fever.?Denies?Headache.?ENT:?Patient denies?decreased sense of smell, any loss of taste, sore throat.?Denies?Sore throat.?Respiratory:?Denies?Cough.?Denies?Shortness of breath at rest.?Denies?Shortness of breath with exertion.?Gastrointestinal:?Denies?Diarrhea.?Denies?Nausea.?Musculoskeletal:?Patient denies?muscle aches.?Peripheral Vascular:?Patient denies?red and blue toes.? * Medical History:? * Surgical History:? * Hospitalization/Major Diagno stic Procedure:? * Medications:?TakingFinacea 1 5 % Gel 1 application Externally ONCE A [...] tablets as needed Orally every 8 hrs Not- Taking/PRN Omeprazole 20 MG Capsule Delayed Release TAKE [...] palpitationsyes[Allergies Verified] Objective: * Vitals:?Ht: 64, Wt: 140, BMI :24.03, BP:164/80, Repeat BP:144/78, HR:60, Wt-k.5. weight is down 4 pounds since 11-14-24. * Examination: ???General Examination: ?GENERAL APPEARANCE:?alert, well hydrated, in no distress.?HEAD:?normocephalic.?SKIN:?good turgor.?HEART:?no murmurs, rubs, gallops, regular rate and rhythm.?LUNGS:?no wheezes, rales, rhonchi, good air movement, clear to auscultation bilaterally.?ABDOMEN:?normal soft non tender with no masses..? Assessment: * Assessment: 1.?Essential hypertension - I10 (Primary)???2.?Abdominal wall pain - R10.9??? Plan: * Treatment: 2.?Abdominal wall pain? Notes: already had a negative ct, will observe?? * Procedure Codes:? * * Sign off status: Completed true * Provider:?Spencer Stanley MD Date:?0 12/13/2024 Generated for Kwaku hernández/Jameson/eTlorrainesmitting on:?12/19/2024 12:32 PM EST History and Physical [...]
--- OUTSIDE RECORDS SUMMARY | 2024-12-19 12:33 | XMS_ITS ---
Author Organization [facility] Address [address] [place] [address] Care Team Providers Care Grievance And Appeals Coordinator Name Role Phone Spencer Stanley MD Primary Care Provider Sarabjit Caballero [phone] REASON FOR VISIT 38 pedags Encounters Encounter Location Date Provider Diagnosis [facility] [address] [place] [address] 11/17/2024 Sarabjit Manriquez Plan Of Treatment No Information Progress Notes * Maday ARBOLEDA MDOB:[birth year] (74 yo F)Acc No.[id number]:11/17/2024 Patient:?Maday ARBOLEDA :1950???Age:74 Y???Sex:Female Address:[place] [address] * true * Date:? Generated for Printi edgar/Jameson/eTransmitting on:?12/19/2024 12:33 PM EST
--- OUTSIDE RECORDS SUMMARY | 2024-12-19 12:33 | XMS_ITS ---
Author Organization [facility] Address [address] [facility] [place] [address] Care Team Providers Care Director Of Strategic Initiatives Name Role Phone Spencer Stanley MD Primary Care Provider Sarabjit Caballero [phone] REASON FOR VISIT BUY Pedag [employer] (red) #38 / L 8 Encounters Encounter Location Date Provider Diagnosis [facility] [address] [place] [address] 11/15/2024 Sarabjit Manriquez Plan Of Treatment No Information Progress Notes * Maday ARBOLEDA MDOB:[birth year] (74 yo F)Acc No.[id number]:11/15/2024 Patient:?Maday ARBOLEDA :1950???Age:74 Y???Sex:Female Address:[facility] [place] [address] * true * Date:? Generated for Printi ng/Farosag/eTransmitting on:?12/19/2024 12:32 PM EST
--- OUTSIDE RECORDS SUMMARY | 2024-12-19 12:33 | XMS_ITS ---
Author Organization [facility] Address [address] [place] [address] Care Team Providers Care Wire Weaving Loom Setter Name Role Phone Spencer Stanley MD Primary Care Provider Dany Regan [phone] ALLERGIES Allergen (clinical drug ingredient) Drug/Non Drug Allergy documented on EMR Reaction Allergy Type Onset Date Status tetracycline Tetracycline HCl Unknown Drug Allergy Active lidocaine Lidocaine Unknown Drug Allergy Active REASON FOR VISIT PATIENT PRESENTS TODAY FOR ACUTE DIVERTICULITIS MEDICATIONS Medication SIG (Take, Route, Fr equency, Duration) Notes Start Date End Date Status dilTIAZem HCl ER 60 MG Oral for 30 Days Active Valsartan 320 MG TAKE 1 TABLET BY VICKY TH DAILY Oral for 90 Days Active SOCIAL HISTORY Sex Assigned At : Social History Observation Description Sex Assigned At Unknown Alcohol Screen Question Answer Notes Did you have a drink contain ing alcohol in the past year? Yes How often did you have a dri nk containing alcohol in the past year? 2 to 4 times a month (2 points) How many drinks did you have on a typical day when you were drinking in the past year? 1 or 2 drinks (0 point) How often did you have 6 or more drinks on one occasion in the past year? Never (0 point) Points 2 Interpretation Negative PROBLEMS Problem Type ICD Code Onset Dates Problem Status W/U Status Risk SNOMED Code Notes Problem Diverticulitis of colon (K57.32) Active confirmed Diverticuliti s of colon (190037787) VITAL SIGNS BMI 23.53 kg/m2 12/06/2024 Blood pressure systolic 111 mm Hg 12/06/19 25 Blood pressure diastolic 11 mm Hg 025 Height 63.75 in 12/06/2024 Weight 136 lbs 12/06/2024 Encounters Encounter Location Date Provider Diagnosis [facility] [address] [place] [address] 12/06/2024 Dany Willis Diverticulitis of co laya K57.32 ASSESSMENTS Encounter Date Diagnosis Assessment Notes Treatment Notes Treatment Clinical Notes 12/06/2024 Diverticulitis of colon (ICD-10 - K57.32) Repeat colonoscopy in 04/2026 Go on a liquid diet for 1 or 2 days if the diverticulitis flares up, but definitely go on antibiotics if not getting better Need [facility] CT scan in 2023 PLAN OF TREATMENT Treatment Notes Assessment Notes Diverticulitis of colon Repeat colonoscopy in 04/2026 Go on a liquid diet for 1 or 2 days if the diverticulitis flares up, but definitely go on antibiotics if not getting better Need [facility] CT scan in 2023
--- OUTSIDE RECORDS SUMMARY | 2024-12-19 12:33 | XMS_ITS ---
Author Organization [facility] Address [address] [facility] [address] Care Team Providers Care Nutritional Assistant Name Role Phone Spencer Stanley MD Primary Care Provider Sarabjit Caballero Unavailable [phone] Allergies Allergen (clinical drug ingredient) Drug/Non Drug [...] W/U Status Risk Notes Problem Plantar wart (02215184) Plantar wart (B07.0) Active confirmed Problem 049853742 Onychomycosis (B35.1) Active confirmed Vital Signs Height 5 ft 4 in in 11/15/2024 Weight 142 lbs 11/15/2024 BMI 24.37 kg/m2 11/15/2024 Blood pressure systolic 120 mm Hg 11/15/19 25 Blood pressure diastolic 80 mm Hg 025 Procedures Procedure Date Ordered Date Performed Result Body Sit e 58602-TAOWHNX NAIL, 1-11/15/2024 N/A 08733-Qwlk Destruction, 11-2211/15/2024 N/A Encounters Encounter Location Date Provider Diagnosis [facility] [address] [address] 11/15/2024 Sarabjit Manriquez Pain in left toe(s) [...] Treatment Pending Test Test Name Order Date 04841-EXMRPKX NAIL, 1-5 11/15/2024 27181-Lrwr Destruction, 1-11/15/2024 Next Appt Details Follow Up: prn, Reason: Procedure Notes * Category Sub-Category Detail Notes Wart Treatment Procedure Verruca, as desc ribed in exam, were debrided to pin-point bleeding margins with sterile 15 surgical blade, silver nitrate chemocautery applied, recomm. immune-boosting meds such as zinc, recomm. follow up with topical chemosurgical agents, Pt defers any other forms of tx - 60311 Debride Nails 1-5 Procedure: Due to the [...] necessary to maintain effective symptomatic relief - 96051 Progress Notes * Maday ARBOLEDA MDOB:[birth year] (74 yo F)Acc No.[id number]:11/15/2024 Progress Note Patient:?Maday ARBOLEDA Provider:?Sarabjit Manriquez DPM :1950???Age:74 Y???Sex:Female D ate:11/15/2024 Address:[address] [place] [address], [place], [phone] Pcp:Spencer Stanley MD Subjective: * Chief Complaints: [...] gardening/yard work, yoga. ?Marital status: . 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 * Medications:?TakingdilTIAZem HCl ER , Notes to [...] Uncomplicated (3)??? Plan: * Treatment: 2.?Plantar wart?Procedure: 12116-Vnvs Destruction, 1-14 * Procedures:?Debride Nails 1-5:?Procedure:?Due to [...] necessary to maintain effective symptomatic relief - 04687.?Wart Treatment:?Procedure?Verruca, as described in exam, were debrided to pin-point bleeding margins with sterile 15 surgical blade, silver nitrate chemocautery applied, recomm. immune-boosting meds such as zinc, recomm. follow up with topical chemosurgical agents, Pt defers any other forms of tx - 77471.? * Procedure Codes:?86749 DEBRI DE NAIL, 1-5, Modifiers: XS 95652 Wart Destruction, 1-14, Modifiers: XS 1036F TOBACCO [...] time worn until they are using them signal timer and in all activities. They were asked [...] Manriquez DPM Date:?2024 Generated for Kwaku hernández/Jameson/Yousuf on:?12/19/2024 12:33 PM EST History and Physical Notes * [...]
--- OUTSIDE RECORDS SUMMARY | 2024-12-19 12:33 | XMS_ITS | Patient Health Record ---
Author Organization [facility] Address [address] [place] [address] Care Team Providers Care Welder Tech Name Role Phone Spencer Stanley MD Primary Care Provider Dany Regan Unavailable [phone] ALLERGIES Allergen (clinical drug ingredient) Drug/Non Drug Allergy documented on EMR Reaction Allergy Type Onset Date Status tetracycline Tetracycline HCl Unknown Drug Allergy Active lidocaine Lidocaine Unknown Drug Allergy Active REASON FOR REFERRAL No Information MEDICATIONS Medication SIG (Take, Route, Fr equency, Duration) Notes Start Date End Date Status dilTIAZem HCl ER 60 MG Oral for 30 Days Active Valsartan 320 MG TAKE 1 TABLET BY VICKY TH DAILY Oral for 90 Days Active IMMUNIZATIONS Vaccine Route Administration Date Status [...] or abscess without bleeding (K57.32) Active confirmed 6630241 Problem Encounter for screening for malignant neoplasm of colon (Z12.11) Active confirmed 368057754 Problem Gastroesophageal reflux disease without esophagitis (K21.9) Active confirmed 582445345 Problem Elevated liver enzymes (R74.8) Active confirmed 637571031 Problem Diverticulitis of colon (K57.32) Active confirmed Diverticuliti s of colon (169389198) Problem NSAID long-term use (Z79.1) Active confirmed 079880785 Problem Hx of adenomatous colonic polyps (Z86.010) Active confirmed 906663283 VITAL SIGNS Blood pressure diastolic 11 mm Hg 12/06/2024 Height 63.75 in 12/06/2024 Blood pressure systolic 111 mm Hg 12/06/2024 Weight 136 lbs 12/06/2024 BMI 23.53 kg/m2 12/06/2024 Encounters Encounter Location Date Provider Diagnosis [facility] [address] [place] [address] 12/06/2024 Dany Willis Diverticulitis of co laya K57.32 ASSESSMENTS Encounter Date Diagnosis Assessment Notes Treatment Notes Treatment Clinical Notes 12/06/2024 Diverticulitis of colon (ICD-10 - K57.32) Repeat colonoscopy in 04/2026 Go on a liquid diet for 1 or 2 days if the diverticulitis flares up, but definitely go on antibiotics if not getting better [facility] CT scan in 2023 PLAN OF TREATMENT Pending Test Test Name Order Date LIVER PROFILE 11/02/2018 Future Test Test Name Order Date UPPER GI ENDOSCOPY 11/28/2014 COLONOSCOPY 11/28/2014 COLONOSCOPY 03/12/2021 Insurance Providers Payer Name Payer Address Payer Phone Subscriber Number Group Number Insured Name Patient Relationship to Insured Coverage Start Date Coverage End Date MEDICARE OF [place] [address] [place] [address] [id number] LICHA ARBOLEDA Self - patient is the insured MED[employer] ATTN CLAIMS [address] [place] [address] [id number] LICHA ARBOLEDA Self - patient is the insured MEDICAL (GENERAL) HISTORY Medical History History ICD Code 2003 and 05/07/2009 Colonoscopy--negative for polyps Tubular adenoma--removed in 2000 Internal hemorrhoids Diverticulosis-mild divertic ulitis of the distal descending/proximal sigmoid colon described on a CT scan in 12/2012, 11/2016, and 09/2018 GERD--EGD in 2004-small HH--no esophagit is, no Arevalo's Hiatal hernia Denies NV,DM,CVA,Lung disease,renal dise ase Osteoporosis Negative abdominal ultrasound in 01/2015--colonoscopy with sma ll tubular adenomas removed, diverticulosis, and internal hemorrhoids 01/2015-EGD with a small hiat al hernia, but no esophagitis nor Arevalo's esophagus Hx of kidney stones Hypertension Colonoscopy 04/2021 with a single tubular adenoma Diverticulitis 2023--had a CT at [facility] Surgical History Surgery Date(Month/Year) Hammer toe Hysterectomy w/removal of 1 ovary
--- OUTSIDE RECORDS SUMMARY | 2024-12-19 12:33 | XMS_ITS | Patient Health Record ---
Author Organization [facility] Address [address] [facility] [place] [address] Care Team Providers Care Rehabilitation Program Manager Name Role Phone Spencer Stanley MD Primary Care Provider Sarabjit Caballero Unavailable [phone] Allergies Allergen (clinical drug ingredient) Drug/Non Drug [...] W/U Status Risk Notes Problem Plantar wart (33291649) Plantar wart (B07.0) Active confirmed Problem 080593777 Onychomycosis (B35.1) Active confirmed Vital Signs Blood pressure diastolic 80 mm Hg 11/15/2024 Height 5 ft 4 in in 11/15/2024 Blood pressure systolic 120 mm Hg 11/15/2024 Weight 142 lbs 11/15/2024 BMI 24.37 kg/m2 11/15/2024 Procedures Procedure Date Ordered Date Performed Result Body Sit e 63302-EZADZQY NAIL, 1-11/15/2024 N/A 65240-Othk Destruction, -11/15/2024 N/A Encounters Encounter Location Date Provider Diagnosis [facility] [address] 11/15/2024 Sarabjit Manriquez Pain in left toe(s) M79.675 ; Onychomycosis B35.1 ; Right foot pain M79.671 ; Plantar wart B07.0 ; Pain in right ankle and joints of right foot M25.571 ; Bursitis of intermetatarsal bursa of right foot M77.51 and Metatarsalgia, right foot M77.[address] [facility] [address] 11/15/2024 [facility]it Manriquez [facility] [address] 11/17/2024 Sraabjit Manriquez Assessments Encounter Date Diagnosis (ICD Code) Assessment Notes Treatment Notes Treatment Clinical Notes Section Notes 11/15/2024 Pain in left toe(s) (ICD-10 - M79.675) 11/15/2024 Right foot pain (ICD-10 - M79.671) 11/15/2024 Onychomycosis (ICD-10 - B35.1) 11/15/2024 Plantar wart (ICD-10 - B07.0) 11/15/2024 Pain in right ankle and joints of right foot (ICD-10 - M25.571) 11/15/2024 Bursitis of intermetatarsal bursa of right foot (ICD-10 - M77.51) 11/15/2024 Metatarsalgia, right foot (ICD-10 - M77.41) Plan Of Treatment Pending Test Test Name Order Date X ray : Foot, right 3V 09/25/2022 32593-IVSRWOT NAIL, 1-5 11/15/2024 82874-Obiw Destruction, 1-14 11/15/2024 09784-Xuhawtdg Plate 12/08/2017 56310- Debride <25 sq cm 12/25/2017 Insurance Providers Payer Name Payer Address Payer Phone Subscriber Number Group Number Insured Name Patient Relationship to Insured Coverage Start Date Coverage End Date Medicare National [employer]t Sv[employer] [address] [place] [address] [id number] Maday Draper Self - patient is the insured [employer] [facility] [address] [place] [address] [id number] Maday Draper Self - patient is the insured Medical (General) History Medical History History ICD Code Diverticulosis Measles Mumps Chicken pox Osteoporosis Reflux ( GERD) Hypertension Elevated LFTs Vitamin D deficiency Hypercalciuria Tubular adenoma of colon Cataracts Surgical History Surgery Date(Month/Year) hysterectomy 1986 hammer toe 1998
== END 2024-12-19 13:46 | disposition home or self-care (01) ==
PROVIDERS: PCP Internal Medicine; Visit Provider Internal Medicine Nephrology
DX: I10 Essential (primary) hypertension (principal); E87.1 Hypo-osmolality and hyponatremia
CPT/HCPCS: 99214

== ENCOUNTER → 2024-12-19 11:17 | Outpatient (BNVA) | payer MEDICARE, SELFPAY | PROVIDERS: PCP Internal Medicine; Visit Provider Internal Medicine Nephrology | DX: I10 Essential (primary) hypertension (principal); E87.1 Hypo-osmolality and hyponatremia | CPT/HCPCS: 99212 ==

== ENCOUNTER 2025-01-05 10:39 | Outpatient (REF) | payer MEDICARE, SELFPAY ==
[2025-01-05 10:52] LABS: MANUAL DIFF FLAG NO
[2025-01-05 11:13] LABS: Basophils Percent Auto 0.8 % (0-2); Eosinophils Absolute Auto 0.1 X10*3/uL (0.0-0.4); Eosinophils Percent Auto 2.4 % (0-4); Hematocrit 41.2 % (37.0-47.0); Hemoglobin 13.5 g/dl (12.0-16.0); Imm Gran Abs Auto 0.01 X10*3/uL (0.00-0.03); Imm Gran Pct Auto 0.2 % (0.0-0.4); Lymphocytes Percent Auto 40.8 % (20-40); Mean Corpuscular HGB Conc 32.8 g/dl (31.0-35.0); Mean Corpuscular Hemoglobin 33.1 pg (27.0-33.0); Monocytes Absolute Auto 0.4 X10*3/uL (0.1-1.2); Monocytes Percent Auto 8.2 % (2-11); Neutrophils Absolute Auto 2.4 x10*3/uL (2.0-8.3); Neutrophils Percent Auto 47.6 % (45-73); Platelet Count 272 X10*3/uL (160-400); Red Blood Count 4.08 X10*6/uL (4.20-5.50); Red Cell Distribution Width 13.1 % (11.0-16.0)
[2025-01-05 11:36] LABS: Alanine Aminotransferase 31 U/L (0-31); Alkaline Phosphatase 106 U/L (39-117); Anion Gap 10 (12-20); Aspartate Amino Transferase 32 U/L (5-31); Bilirubin Direct 0.2 mg/dL (0.0-0.5); Bilirubin Total 0.4 mg/dL (0.0-1.0); Blood Urea Nitrogen 14 mg/dL (9-16); Calcium 9.4 mg/dL (8.4-10.2); Carbon Dioxide 25 mmol/L (22-29); Chloride 109 mmol/L (96-108); Cholesterol 251 mg/dL (<200); Estimated Glomerular Filt Rate > 60; Glucose Fasting 81 mg/dL (60-99); HDL Cholesterol 78 mg/dL (>40); LDL Cholesterol Calculated 162 mg/dL (<100); Potassium 4.1 mmol/L (3.3-5.1); Sodium 140 mmol/L (135-145); Total Protein 7.1 g/dL (6.5-8.0); Triglycerides 59 mg/dL (<150)
[2025-01-05 11:51] LABS: Vitamin D 25-OH Total 62.4 ng/mL (>30)
--- OUTSIDE RECORDS SUMMARY | 2025-01-05 12:47 | XMS_ITS ---
Author Organization Spencer Stanley MD Address [address] [place] [phone] Care Team Providers Care Organisational Psychologist Name Role Phone Spencer Stanley Primary Care Provider Allergies Allergen (clinical drug ingredient) Drug/Non Drug Allergy documented on EMR Reaction Allergy Type Onset Date Status epinephrine (uncoded) heart palpitations Allergy Active tetracycline tetracycline (uncoded) rash Allergy Active REASON FOR VISIT HBP, BP this afternoon is 177/110 but did not take Diltazen 60mg last night because she does not feel well foggy , Video [phone] Medications Medication SIG (Take, Route, Frequency, Duration) Notes Start Date End Date Status Vistaril 25 MG 1 capsule as needed Orally every 8 hrs as needed for 30 days 2021 Not-Taking Vitamin K (Phytonadione) Not-Taking Valsartan 320 MG 1 tablet Orally Once a day Active Finacea 15 % 1 application Pet Care Attendant ally ONCE A DAY IN THE EVENING [...] Omeprazole 20 MG TAKE 1 CAPSULE BY [facility] EVERY DAY 30 MINUTES BEFORE BREAKFAST for 90 Not-Taki ng Melatonin 5 MG 1 tablet at bedtime and a 1mg tablet Orally at bedtime Not-Taking Vitamin D-3 1000 UNIT 1 capsule Orally O nce a day Not-Taking Vital Signs Height 64 in 11/25/2024 eight at home is 144 BP 177/ 110 Encounters Encounter Location Date Provider Diagnosis Spencer Stanley MD [address] [place] [address] [place] [phone] 11/25/2024 Spencer Stanley Essential hypertension I10 Assessments [...] still high Next Appt Details Provider Name:Spencer Mccullough iesnáchez, 01/12/2025 09:30:00 AM, [address] [place] [address], [address], [place], [place], [phone], Progress Notes * Maday ARBOLEDA MDOB:[birth year] (74 yo F)Acc No.[id number]:11/25/2024 Patient:?Maday ARBOLEDA Provider:?Spencer Stanley MD :1950???Age:74 Y???Sex:Female D ate:11/25/2024 Address:[address] [place] [address], [place], [phone] Subjective: * Chief Complaints: * ???1. HBP. 2. BP this aftern oon is 177/110 but did not take Diltazen 60mg last night because she does not feel well foggy . 3. Video [phone]. * HPI: ???Symptom(s):?Telehealth?Location of provider rendering services:?10 [...] tolerat e doxycycline without difficulty, Refuses flu [id number], colonoscopy 04/2009 - adenoma due in 5 [...] Stanley MD Date:?0 11/25/2024 Generated for Kwaku hernández/Jameson/Marilinitting on:?01/05/2025 12:47 PM EST History and Physical Notes * HPI (History of Present Illness) Category Sub-Category Detail Notes Category Not es Symptom(s) Telehealth Location of [facility] rendering services:: [address], [address] [...]
--- OUTSIDE RECORDS SUMMARY | 2025-01-05 12:48 | XMS_ITS ---
Author Organization [facility] Address [address] [place] [address] Care Team Providers Care Turbo Generator Oiler Name Role Phone Spencer Stanley MD Primary Care Provider Dany Regan [phone] ALLERGIES Allergen (clinical drug ingredient) Drug/Non Drug [...] (K57.32) Active confirmed Diverticuliti s of colon (144683342) VITAL SIGNS Blood pressure systolic 111 mm Hg 12/06/19 25 Blood pressure diastolic 11 mm Hg 025 Height 63.75 in 12/06/2024 Weight 136 lbs 12/06/2024 BMI 23.53 kg/m2 12/06/2024 Encounters Encounter Location Date Provider Diagnosis [facility] [address] [place] [address] 12/06/2024 Dany Willis Diverticulitis of co laya K57.32 ASSESSMENTS Encounter Date Diagnosis Assessment Notes Treatment Notes Treatment Clinical Notes 12/06/2024 Diverticulitis of colon (ICD-10 - K57.32) Repeat colonoscopy in 04/2026 Go on a liquid diet for 1 or 2 days if the diverticulitis flares up, but definitely go on antibiotics if not getting better Need [facility] CT scan in 2023 PLAN OF TREATMENT Treatment Notes Assessment Notes Diverticulitis of colon Repeat colonoscopy in 04/2026 Go on a liquid diet for 1 or 2 days if the diverticulitis flares up, but definitely go on antibiotics if not getting better Need [facility] CT scan in 2023 Next Appt Details Follow Up: prn, Reason: Progress Notes * Examination Category Sub-Category Detail Notes General Examination GENERAL APPEARANCE: pleasant , well nourished, well developed, in no acute distress HEAD: EYES: sclera non-icteric EARS: NOSE: THROAT: NECK/THYROID: no cervical lymphade nopathy, neck supple HEART: S1, S2 normal CHEST: LUNGS: clear to auscultatio n bilaterally ABDOMEN: normal bowel sounds, no guarding or rigidity, no guarding or rigidity, no masses palpable, soft, nontender, nondistended NEUROLOGIC: alert and oriented SKIN: nonjaundiced, no spi mauricio angiomata EXTREMITIES: no edema PERIPHERAL PULSES: BACK: BREASTS: MUSCULOSKELETAL: MALE GENITOURINARY: LYMPH NODES: RECTAL EXAM: FEMALE GENITOURINARY: ORAL CAVITY: mucosa moist
--- OUTSIDE RECORDS SUMMARY | 2025-01-05 12:48 | XMS_ITS | Patient Health Record ---
Author Organization [facility] Address [address] [facility] [place] [address] Care Team Providers Care Director Machine Name Role Phone Spencer Stanley MD Primary Care Provider Sarabjit Caballero Unavailable [phone] Allergies Allergen (clinical drug ingredient) Drug/Non Drug [...] W/U Status Risk Notes Problem Plantar wart (44119879) Plantar wart (B07.0) Active confirmed Problem 297155254 Onychomycosis (B35.1) Active confirmed Vital Signs Blood pressure diastolic 80 mm Hg 11/15/2024 Height 5 ft 4 in in 11/15/2024 Blood pressure systolic 120 mm Hg 11/15/2024 Weight 142 lbs 11/15/2024 BMI 24.37 kg/m2 11/15/2024 Procedures Procedure Date Ordered Date Performed Result Body Sit e 31573-KEXIJCP NAIL, 1-11/15/2024 N/A 31328-Zawb Destruction, -11/15/2024 N/A Encounters Encounter Location Date Provider Diagnosis [facility] [address] 11/15/2024 Sarabjit Manriquez Pain in left toe(s) M79.675 ; Onychomycosis B35.1 ; Right foot pain M79.671 ; Plantar wart B07.0 ; Pain in right ankle and joints of right foot M25.571 ; Bursitis of intermetatarsal bursa of right foot M77.51 and Metatarsalgia, right foot M77.41 [facility] [address] 11/15/2024 [facility]jit Manriquez [facility] [address] 11/17/2024 Sarabjit Manriquez Assessments Encounter Date Diagnosis [...] X ray : Foot, right 3V 09/25/2022 42188-BNOTXDC NAIL, 1-5 11/15/2024 42912-Xkbp Destruction, 1-14 11/15/2024 22533-Jqbwntaa Plate 12/08/2017 78173- Debride <25 sq cm 12/25/2017 Insurance Providers Payer Name Payer Address Payer Phone Subscriber Number Group Number Insured Name Patient Relationship to Insured Coverage Start Date Coverage End Date Medicare National [employer] [address] [place] [address] [id number] Maday Draper Self - patient is the insured [employer] [facility] [address] [place] [address] [id number] Maday Draper Self - patient is the insured Medical (General) History Medical History History ICD Code Diverticulosis Measles Mumps Chicken pox Osteoporosis Reflux ( GERD) Hypertension Elevated LFTs Vitamin D deficiency Hypercalciuria Tubular adenoma of colon Cataracts Surgical History Surgery Date(Month/Year) hysterectomy 1986 hammer toe 1998
--- OUTSIDE RECORDS SUMMARY | 2025-01-05 12:48 | XMS_ITS ---
Author Organization [facility] Address [address] [place] [address] Care Team Providers Care Boat Ride Operator Name Role Phone Spencer Stanley MD Primary Care Provider Sarabjit Caballero [phone] REASON FOR VISIT BUY Pedag Viva Sport (red) #38 / L 8 Encounters Encounter Location Date Provider Diagnosis [facility] [address] [place] [address] 11/15/2024 Sarabjit Manriquez Plan Of Treatment No Information Progress Notes * Maday ARBOLEDA MDOB:[birth year] (74 yo F)Acc No.[id number]:11/15/2024 Patient:?Maday ARBOLEDA :1950???Age:74 Y???Sex:Female Address:[facility] [place] [address] [place] [address] * true * Date:? Generated for Printi ng/Farosag/eTransmitting on:?01/05/2025 12:48 PM EST
--- OUTSIDE RECORDS SUMMARY | 2025-01-05 12:48 | XMS_ITS ---
Author Organization [facility] Address [address] [place] [address] Care Team Providers Care Executive Administrative Assistant Name Role Phone Spencer Stanley MD Primary Care Provider Sarabjit Caballero [phone] REASON FOR VISIT 38 pedags Encounters Encounter Location Date Provider Diagnosis [facility] [address] [place] [address] 11/17/2024 Sarabjit Manriquez Plan Of Treatment No Information Progress Notes * Maday ARBOLEDA MDOB:[birth year] (74 yo F)Acc No.[id number]:11/17/2024 Patient:?Maday ARBOLEDA :1950???Age:74 Y???Sex:Female Address:[place] [address] * true * Date:? Generated for Printi edgar/Jameson/eTransmitting on:?01/05/2025 12:48 PM EST
--- OUTSIDE RECORDS SUMMARY | 2025-01-05 12:48 | XMS_ITS ---
Author Organization Spencer Stanley MD Address [address] [place] [phone] Care Team Providers Care Academic Affairs Assistant Name Role Phone Spencer Stanley Primary Care [...] 20 MG TAKE 1 CAPSULE BY [place] [facility] EVERY DAY 30 MINUTES BEFORE [...] (Phytonadione) Not-Taking Finacea 15 % 1 application Sea Foam Kiss Maker ally ONCE A DAY IN THE EVENING Active Vital Signs Blood pressure systolic 164 mm Hg 12/13/19 25 Blood pressure diastolic 80 mm Hg 025 Heart Rate 60 /min 12/13/2024 Height 64 in 12/13/2024 Weight 140 lbs 12/13/2024 BMI 24.03 kg/m2 12/13/2024 weight is down 4 pounds [facility] e 11-14-24 Encounters Encounter Location Date Provider Diagnosis Spencer Stanley MD [address] [place], [place] [phone] 12/13/2024 Spencer Stanley Essential hypertension I10 and [...] observe Next Appt Details Provider Name:Spencer correa, 01/12/2025 09:30:00 AM, [address], [address], [place], [place], [phone], Progress Notes * Maday ARBOLEDA MDOB:[birth year] (74 yo F)Acc No.[id number]:12/13/2024 Progress Notes Patient:?Maday ARBOLEDA Provider:?Spencer Stanley MD :1950???Age:74 Y???Sex:Female D ate:12/13/2024 Address:[address] [place] [address], [place], [id number] Subjective: * Chief Complaints: * ???Pain under [...] Wt-k.5. weight is down 4 pounds since 1-6-25. * Examination: ???General Examination: ?GENERAL APPEARANCE:?alert, well [...] Stanley MD Date:?0 12/13/2024 Generated for Kwaku hernández/Jameson/Chrissmitting on:?01/05/2025 12:47 PM EST History and Physical [...]
--- OUTSIDE RECORDS SUMMARY | 2025-01-05 12:48 | XMS_ITS | Patient Health Record ---
Author Organization [facility] Address [address] [place] [address] Care Team Providers Care Shoe Trimmer Name Role Phone Spencer Stanley MD Primary Care Provider Dany Regan Unavailable [phone] ALLERGIES Allergen (clinical drug ingredient) Drug/Non Drug [...] or abscess without bleeding (K57.32) Active confirmed 7007679 Problem Encounter for screening for malignant neoplasm of colon (Z12.11) Active confirmed 432530968 Problem Gastroesophageal reflux disease without esophagitis (K21.9) Active confirmed 408987491 Problem Elevated liver enzymes (R74.8) Active confirmed 540095268 Problem Diverticulitis of colon (K57.32) Active confirmed Diverticuliti s of colon (763174820) Problem NSAID long-term use (Z79.1) Active confirmed 833171204 Problem Hx of adenomatous colonic polyps (Z86.010) Active confirmed 976841231 VITAL SIGNS Blood pressure diastolic 11 mm Hg 12/06/2024 Height 63.75 in 12/06/2024 Blood pressure systolic 111 mm Hg 12/06/2024 Weight 136 lbs 12/06/2024 BMI 23.53 kg/m2 12/06/2024 Encounters Encounter Location Date Provider Diagnosis [facility] [address] [place] [address] 12/06/2024 Dany Willis Diverticulitis of co laya K57.32 ASSESSMENTS Encounter Date Diagnosis Assessment Notes Treatment Notes Treatment Clinical Notes 12/06/2024 Diverticulitis of colon (ICD-10 - K57.32) Repeat colonoscopy in 04/2026 Go on a liquid diet for 1 or 2 days if the diverticulitis flares up, but definitely go on antibiotics if not getting better Need [facility] CT scan in 2023 PLAN OF TREATMENT Pending Test Test Name Order Date LIVER PROFILE 11/02/2018 Future Test Test Name Order Date UPPER GI ENDOSCOPY 11/28/2014 COLONOSCOPY 11/28/2014 COLONOSCOPY 03/12/2021 Insurance Providers Payer Name Payer Address Payer Phone Subscriber Number Group Number Insured Name Patient Relationship to Insured Coverage Start Date Coverage End Date MEDICARE OF [place] [address] [place] [address] [id number] LICHA ARBOLEDA Self - patient is the insured [employer] CLAIMS [address] [place] [address] [phone] [id number] LICHA ARBOLEDA Self - patient is the insured MEDICAL (GENERAL) HISTORY Medical History History ICD Code 2003 and 05/07/2009 Colonoscopy--negative for polyps Tubular adenoma--removed in 2000 Internal hemorrhoids Diverticulosis-mild divertic ulitis of the distal descending/proximal sigmoid colon described on a CT scan in 12/2012, 11/2016, and 09/2018 GERD--EGD in 2004-small HH--no esophagit is, no Arevalo's Hiatal hernia Denies GA,DM,CVA,Lung disease,renal dise ase Osteoporosis Negative abdominal ultrasound in 01/2015--colonoscopy with sma ll tubular adenomas removed, diverticulosis, and internal hemorrhoids 01/2015-EGD with a small hiat al hernia, but no esophagitis nor Arevalo's esophagus Hx of kidney stones Hypertension Colonoscopy 04/2021 with a single tubular adenoma Diverticulitis 2023--had a CT at [facility] Surgical History Surgery Date(Month/Year) Hammer toe Hysterectomy w/removal of 1 ovary
--- OUTSIDE RECORDS SUMMARY | 2025-01-05 12:48 | XMS_ITS ---
Author Organization Spencer Stanley MD Address [address] [place] [phone] Care Team Providers Care Ritual Circumciser Name Role Phone Spencer Stanley Primary Care Provider Results Component Value Reference Range Notes Complete Blood Count Auto Di ff (Not yet reviewed by provider) Interpretation: Performing Lab:[facility], [address] [place] [phone] Notes/Report: White Blood Count 5.0 4.8-10.8 X10*3/uL [...] NRBC Abs Auto 0.000 0.0-0.012 X10*3/uL Comprehensive [facility]. Panel Fa st Reviewed date:01/05/2025 12:43:17 PM Interpretation: Performing Lab:[facility], [address] [place] [phone] Notes/Report: Sodium 140 135-145 mmol/L Potassium 4.1 [...] Panel Reviewed date:01/05/2025 12:43:41 PM Interpretation: Performing Lab:[facility], [address] [place] [phone] Notes/Report: Bilirubin Direct 0.2 0.0-0.5 mg/dL Lipid Panel Reviewed date:01/05/2025 12:43:26 PM Interpretation: Performing Lab:[facility], [address] [place] [phone] Notes/Report: Triglycerides 59 <150 mg/dL Desirable Triglyceride: [...] Total Reviewed date:01/05/2025 12:43:34 PM Interpretation: Performing Lab:[facility], [address] [place] [phone] Notes/Report: Vitamin D 25-OH Total 62.4 >30 [...] Location Date Provider Diagnosis Spencer Stanley MD [address] [place] [address] [address] [place], [place] [phone] 01/05/2025 Spencer Stanley Essential hypertension I10 ; Vitamin D deficiency E55.9 and Elevated LFTs R79.89 Assessments Encounter Date Diagnosis (ICD Code) Assessment Notes Treatment Notes Treatment Clinical Notes Section Notes 01/05/2025 Essential hypertension (ICD-10 - I10) 01/05/2025 Vitamin D deficiency (ICD-10 - E55.9) 01/05/2025 Elevated LFTs (ICD-10 - R79.89) Plan Of Treatment Pending Test Test Name Order Date Complete Blood Count Auto Diff UA ClnCatch+Micro w/rflx Cult 01/05/2025 Next Appt Details Provider Name:Spencer Mccullough ier, 01/12/2025 09:30:00 AM, [address] [place] [address], [address], [place], [place], [phone], Progress Notes * Maday ARBOLEDA MDOB:[birth year] (74 yo F)Acc No.[id number]:01/05/2025 Progress Note Patient:?Maday ARBOLEDA Mario Provider:?Spencer Stanley MD :1950???Age:74 Y???Sex:Female D ate:01/05/2025 Address:[address] [place] [address] [address] [id number] Subjective: * Chief Complaints: * ???1. FASTING LABS. * Medical History:? Objective: * Vitals:? Assessment: * Assessment: 1.?Essential hypertension - I10 (Primary)???2.?Vitamin D deficiency - E55.9???3.?Elevated LFTs - R79.89??? Plan: * Treatment: 2.?Vitamin D deficiency?LAB: Complete Blood Count Auto Diff (Collection Date & Time - 01/05/2025 07:45 AM) ?LAB: UA ClnCatch+Micro w/rflx Cult ?LAB: [facility]. Panel Fast (Collection Date & Time - 01/05/2025 07:45 AM) ?LAB: Liver Panel (Collection Date & Time - 01/05/2025 07:45 AM) ?LAB: Lipid Panel (Collection Date & Time - 01/05/2025 07:45 AM) ?LAB: Vitamin D 25-OH Total (Collection Date & Time - 01/05/2025 07:45 AM) 3.?Elevated LFTs?LAB: Complete Blood Count Auto Diff (Collection Date & Time - 01/05/2025 07:45 AM) ?LAB: UA ClnCatch+Micro w/rflx Cult ?LAB: [facility]. Panel Fast (Collection Date & Time - 01/05/2025 07:45 AM) ?LAB: Liver Panel (Collection Date & Time - 01/05/2025 07:45 AM) ?LAB: Lipid Panel (Collection Date & Time - 01/05/2025 07:45 AM) ?LAB: Vitamin D 25-OH Total (Collection Date & Time - 01/05/2025 07:45 AM) * Procedure Codes:?17511 VENIP UNCT, ROUTINE* * * The named appointment provid er may or may not be the originator of this progress note, and it is not deemed complete until electronically signed by the appointment provider. Sign off status: Pending * Provider:?Spencer Stanley MD Date:?0 01/05/2025 Generated for Kwaku hernández/Jameson/Chrissmitting on:?01/05/2025 12:47 PM EST
--- OUTSIDE RECORDS SUMMARY | 2025-01-05 12:49 | XMS_ITS ---
Author Organization [facility] Address [address] [place] [address] Care Team Providers Care Quality Systems Engineer Name Role Phone Spencer Stanley MD Primary Care Provider Sarabjit Caballero Unavailable [phone] Allergies Allergen (clinical drug ingredient) Drug/Non Drug [...] W/U Status Risk Notes Problem Plantar wart (63835278) Plantar wart (B07.0) Active confirmed Problem 281447970 Onychomycosis (B35.1) Active confirmed Vital Signs Height 5 ft 4 in in 11/15/2024 Weight 142 lbs 11/15/2024 BMI 24.37 kg/m2 11/15/2024 Blood pressure systolic 120 mm Hg 11/15/19 25 Blood pressure diastolic 80 mm Hg 025 Procedures Procedure Date Ordered Date Performed Result Body Sit e 52249-WYJXEGA NAIL, 1-11/15/2024 N/A 69292-Rfof Destruction, 11-2211/15/2024 N/A Encounters Encounter Location Date Provider Diagnosis [facility] [address] [address] 11/15/2024 Sarabjit Manriquez Pain in left toe(s) [...] Treatment Pending Test Test Name Order Date 22072-DJRBCZS NAIL, 1-5 11/15/2024 79774-Txsz Destruction, 1-11/15/2024 Next Appt Details Follow Up: prn, Reason: Procedure Notes * Category Sub-Category Detail Notes Wart Treatment Procedure Verruca, as desc ribed in exam, were debrided to pin-point bleeding margins with sterile 15 surgical blade, silver nitrate chemocautery applied, recomm. immune-boosting meds such as zinc, recomm. follow up with topical chemosurgical agents, Pt defers any other forms of tx - 00286 Debride Nails 1-5 Procedure: Due to the [...] necessary to maintain effective symptomatic relief - 31837 Progress Notes * Maday ARBOLEDA MDOB:[birth year] (74 yo F)Acc No.[id number]:11/15/2024 Progress Note Patient:?Maday ARBOLEDA Provider:?Sarabjit Manriquez DPM :1950???Age:74 Y???Sex:Female D ate:11/15/2024 Address:[address] [place] [address], [place], [phone] Pcp:Spencer Stanley MD Subjective: * Chief Complaints: [...] gardening/yard work, yoga. ?Marital status: . 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 * Medications:?TakingdilTIAZem HCl ER , Notes to [...] Uncomplicated (3)??? Plan: * Treatment: 2.?Plantar wart?Procedure: 26655-Dwoe Destruction, 1-14 * Procedures:?Debride Nails 1-5:?Procedure:?Due to [...] necessary to maintain effective symptomatic relief - 29883.?Wart Treatment:?Procedure?Verruca, as described in exam, were debrided to pin-point bleeding margins with sterile 15 surgical blade, silver nitrate chemocautery applied, recomm. immune-boosting meds such as zinc, recomm. follow up with topical chemosurgical agents, Pt defers any other forms of tx - 53660.? * Procedure Codes:?96700 DEBRI DE NAIL, 1-5, Modifiers: XS 24570 Wart Destruction, 1-14, Modifiers: XS 1036F TOBACCO [...] time worn until they are using them rate clerk passenger and in all activities. They were asked [...] Manriquez DPM Date:?2024 Generated for Kwaku hernández/Jameson/Yousuf on:?01/05/2025 12:48 PM EST History and Physical Notes * [...]
== END 2025-01-05 10:40 | disposition home or self-care (01) ==
LOC: HO.LNP 10:39
PROVIDERS: Visit Provider Internal Medicine
DX: I10 Essential (primary) hypertension (principal); E55.9 Vitamin D deficiency, unspecified; R79.89 Other specified abnormal findings of blood chemistry
CPT/HCPCS: 80053; 80061; 80076; 82248; 82306; 85025

== ENCOUNTER 2025-01-10 12:19 | Outpatient (AMB) | payer MEDICARE, SELFPAY ==
--- NOTE | 2025-01-10 12:46 | A.OFFVIS_ITS ---
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 Apparently she had COVID in August and after that not been feeling good. She feels that her blood pressure has gone up and she goes Nephrology for that. Apparently tried several medications but lot of them are giving her side effects. Currently on diltiazem and valsartan. Per notes, seems that she has tried metoprolol and amlodipine. She feels as though her heart rate is quite erratic. She can feel pulsations near her neck/year and is bothering her quite a bit. She feels that are resting pulse rate has gone up quite a bit after the COVID. Normal lead somewhere in the 50s but now in the 90s. She had noticed some chest pressure initially but not clear if it is from COVID. However, she does not have any clear-cut angina. No known coronary disease, myocardial infarction or cardiomyopathy. She would like to get her cardiac status fully checked out. [facility] Medical History Hypertension History of kidney stones Hiatal hernia Osteoporosis GERD (gastroesophageal reflux disease) Surgical History History of blepharoplasty History of hammer toe correction Hx of hysterectomy History of esophagogastroduodenoscopy (EGD) Hx of colonoscopy Family History Mother Hypertension Kidney stone Father Cancer Social History Do you presently have visiting nurse or other home services: No Alcohol intake: never Patient Tobacco Use Status: Former Tobacco user Review of Systems Const Denies weakness ENT Denies dizziness Card Denies chest pain, Denies chest pain with activity, Denies syncope, Denies rapid heart rate, Denies pedal edema, Denies edema, Denies leg edema, Denies lightheadedness, Reports palpitations, Denies dyspnea, Denies dyspnea on exertion and Denies orthopnea Resp Denies cough, Denies dyspnea and Denies dyspnea on exertion GI Denies hematochezia and Denies change in stool character Musc Denies abnormal gait, Denies muscle cramps, Denies muscle weakness, Denies numbness, Denies radiating pain into limb and Denies tingling Neuro Denies abnormal gait, Denies dizziness, Denies syncope, Denies numbness, Denies tingling and Denies weakness Endo Reports palpitations Physical Exam Vital Signs: Last Vital Signs Pulse 60 01/10/25 12:47 BP 128/68 01/10/25 12:47 BMI result Body Mass Index 24.6 Const General: comfortable and no acute distress Orientation/consciousness: patient oriented x3 HEENT Other: Unremarkable Head: Yes normal to inspection Neck Neck: Yes normal visual inspection Chest Chest palpation & inspection: normal inspection of the chest Resp Auscultation: clear to auscultation bilaterally Cardio Palpation: normal PMI Heart sounds: S1 normal heart sound present, S2 normal heart sound present, no gallops, no murmurs and no rubs GI Palpation (GI): Soft to palpation Back/Spine/Pelvis Other: unremarkable Skin General skin exam: no rashes or lesions noted Neuro General: patient oriented x3 Extrem General: Yes normal to inspection Psych Mental Status: mental status grossly normal Office Procedures EKG Details: EKG with sinus rhythm at 60/Min; possible left atrial enlargement; cannot exclude old septal infarct; [place] [address]-Qnoewuxlytovszocu, Complete Assessment & Plan Assessment & Plan (1) Abnormal EKG: Code(s): R94.31 - Abnormal electrocardiogram [ECG] [EKG] Category: Medical (2) Hypertension: Code(s): I10 - Essential (primary) hypertension Category: Medical Qualifiers: Hypertension type: primary hypertension Qualified Code(s): I10 - Essential (primary) hypertension Plan History of COVID infection, difficult to control blood pressure, various medication side effects, subjective palpitations, abnormal EKG. We will plan comprehensive workup including echocardiogram, stress test as well as Holter monitor. We discussed about the plan and she was in full agreement. Follow-up after the above. 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
[2025-01-10 12:47] VITALS: BP 128/68; PULSE 60; BMI 24.6
--- OUTSIDE RECORDS SUMMARY | 2025-01-10 15:22 | XMS_ITS | Patient Health Record ---
[facility] Organization [facility] Address [address] [facility] [place] [address] Care Team Providers Care Elderly Sitter Name Role Phone Spencer Stanley MD Primary Care Provider Sarabjit Caballero Unavailable [phone] Allergies Allergen (clinical drug ingredient) Drug/Non Drug [...] W/U Status Risk Notes Problem Plantar wart (13939281) Plantar wart (B07.0) Active confirmed Problem 216298817 Onychomycosis (B35.1) Active confirmed Vital Signs Blood pressure diastolic 80 mm Hg 11/15/2024 Height 5 ft 4 in in 11/15/2024 Blood pressure systolic 120 mm Hg 11/15/2024 Weight 142 lbs 11/15/2024 BMI 24.37 kg/m2 11/15/2024 Procedures Procedure Date Ordered Date Performed Result Body Sit e 38884-XCLOSLC NAIL, 1-11/15/2024 N/A 32104-Kzmz Destruction, -11/15/2024 N/A Encounters Encounter Location Date Provider Diagnosis [facility] [address] 11/15/2024 Sarabjit Manriquez Pain in left toe(s) M79.675 ; Onychomycosis B35.1 ; Right foot pain M79.671 ; Plantar wart B07.0 ; Pain in right ankle and joints of right foot M25.571 ; Bursitis of intermetatarsal bursa of right foot M77.51 and Metatarsalgia, right foot M77.41 [facility] [address] 11/15/2024 [facility]riquez [facility] [address] 11/17/2024 Sarabjit Manriquez Assessments Encounter Date Diagnosis [...] X ray : Foot, right 3V 09/25/2022 94425-IMFYWDO NAIL, 1-5 11/15/2024 81620-Dfum Destruction, 1-14 11/15/2024 60326-Uzipdjea Plate 12/08/2017 02747- Debride <25 sq cm 12/25/2017 Insurance Providers Payer Name Payer Address Payer Phone Subscriber Number Group Number Insured Name Patient Relationship to Insured Coverage Start Date Coverage End Date Medicare National [employer] [address] [place] [address] [id number] Maday Draper Self - patient is the insured [facility] [address] [place] [address] [id number] Maday Draper Self - patient is the insured Medical (General) History Medical History History ICD Code Diverticulosis Measles Mumps Chicken pox Osteoporosis Reflux ( GERD) Hypertension Elevated LFTs Vitamin D deficiency Hypercalciuria Tubular adenoma of colon Cataracts Surgical History Surgery Date(Month/Year) hysterectomy 1986 hammer toe 1998
--- OUTSIDE RECORDS SUMMARY | 2025-01-10 15:22 | XMS_ITS ---
Author Organization Spencer Stanley MD Address [address] [place] [phone] Care Team Providers Care Websphere Consultant Name Role Phone Spencer Stanley Primary Care Provider [phone] Results Component Value Reference Range Notes Complete Blood Count Auto Di ff Reviewed date:01/05/2025 04:35:02 PM Interpretation: Performing Lab:[facility], [address] [place] [phone] Notes/Report: White Blood Count 5.0 4.8-10.8 X10*3/uL [...] NRBC Abs Auto 0.000 0.0-0.012 X10*3/uL Comprehensive [place]. Panel Fa st Reviewed date:01/05/2025 12:43:17 PM Interpretation: Performing Lab:[facility], [address] [place] [phone] Notes/Report: Sodium 140 135-145 mmol/L Potassium 4.1 [...] Panel Reviewed date:01/05/2025 12:43:41 PM Interpretation: Performing Lab:[facility], [address] [place] [phone] Notes/Report: Bilirubin Direct 0.2 0.0-0.5 mg/dL Lipid Panel Reviewed date:01/05/2025 12:43:26 PM Interpretation: Performing Lab:[facility], [address] [place] [phone] Notes/Report: Triglycerides 59 <150 mg/dL Desirable Triglyceride: [...] Total Reviewed date:01/05/2025 12:43:34 PM Interpretation: Performing Lab:[facility], [address] [place] [phone] Notes/Report: Vitamin D 25-OH Total 62.4 >30 [...] Location Date Provider Diagnosis Spencer Stanley MD [address] [place] [address] [address] [place], [place] [phone] 01/05/2025 Spencer Stanley Essential hypertension I10 ; [...] Provider Name:Spencer Mccullough ier, 01/12/2025 09:30:00 AM, [address] [place] [address], [address], [place], [place], [phone], Progress Notes * Maday ARBOLEDA MDOB:[birth year] (74 yo F)Acc No.[id number]:01/05/2025 Progress Note Patient:RADHAROBLESMaday Mario Provider:?Spencer Stanley MD :1950???Age:74 Y???Sex:Female D ate:01/05/2025 Address:[address] [place], [place] [phone] Subjective: * Chief Complaints: * ???1. FASTING LABS. * Medical History:? Objective: * Vitals:? Assessment: * Assessment: 1.?Essential hypertension - I10 (Primary)???2.?Vitamin D deficiency - E55.9???3.?Elevated LFTs - R79.89??? Plan: * Treatment: 2.?Vitamin D deficiency?LAB: [facility] ClnCatch+Micro w/rflx Cult ?LAB: Complete Blood Count Auto Diff (Collection Date & Time - 01/05/2025 07:45 AM) ?LAB: Comprehensive [place]. Panel Fast (Collection Date & Time - 01/05/2025 07:45 AM) ?LAB: Liver Panel (Collection Date & Time - 01/05/2025 07:45 AM) ?LAB: Lipid Panel (Collection Date & Time - 01/05/2025 07:45 AM) ?LAB: Vitamin D 25-OH Total (Collection Date & Time - 01/05/2025 07:45 AM) 3.?Elevated LFTs?LAB: UA ClnCatch+Micro w/rflx Cult ?LAB: Complete Blood Count Auto Diff (Collection Date & Time - 01/05/2025 07:45 AM) ?LAB: Comprehensive [place]. Panel Fast (Collection Date & Time - 01/05/2025 07:45 AM) ?LAB: Liver Panel (Collection Date & Time - 01/05/2025 07:45 AM) ?LAB: Lipid Panel (Collection Date & Time - 01/05/2025 07:45 AM) ?LAB: Vitamin D 25-OH Total (Collection Date & Time - 01/05/2025 07:45 AM) * Procedure Codes:?33671 VENIP UNCT, ROUTINE* * * The named appointment provid er may or may not be the originator of this progress note, and it is not deemed complete until electronically signed by the appointment provider. Sign off status: Pending * Provider:?Spencer Stanley MD Date:?0 01/05/2025 Generated for Kwaku hernández/Jameson/eTlorrainesmitting on:?01/10/2025 03:22 PM EST
--- OUTSIDE RECORDS SUMMARY | 2025-01-10 15:22 | XMS_ITS ---
Author Organization [facility] Address [address] [place] [address] Care Team Providers Care Travel Insurance Agent Name Role Phone Spencer Stanley MD Primary Care Provider Dany Regan [phone] ALLERGIES Allergen (clinical drug ingredient) Drug/Non Drug [...] (K57.32) Active confirmed Diverticuliti s of colon (932859960) VITAL SIGNS Blood pressure systolic 111 mm Hg 12/06/19 25 Blood pressure diastolic 11 mm Hg 025 Height 63.75 in 12/06/2024 Weight 136 lbs 12/06/2024 BMI 23.53 kg/m2 12/06/2024 Encounters Encounter Location Date Provider Diagnosis [facility] [address] [place] [address] 12/06/2024 Dany Willis Diverticulitis of co laya [...]
--- OUTSIDE RECORDS SUMMARY | 2025-01-10 15:22 | XMS_ITS ---
Author Organization Spencer Stanley MD Address [address] [place] [phone] Care Team Providers Care Tombstone Erector Helper Name Role Phone Spencer Stanley Primary Care Provider [phone] REASON FOR VISIT US abd no done Encounters Encounter Location Date Provider Diagnosis Spencer Stanley MD [address] [facility] [address] [place] [phone] 01/09/2025 Spencer Stanley Plan Of Treatment Next Appt Details Provider Name:Spencer correa, 01/12/2025 09:30:00 AM, [address] [place] [address], [address] [place] [address], [phone], Progress Notes * Maday ARBOLEDA MDOB:[birth year] (74 yo F)Acc No.[id number]:01/09/2025 Patient:?Maday ARBOLEDA :1950???Age:74 Y???Sex:Female Address:[address] [place] [address], [place] [address] * * Date:?
--- OUTSIDE RECORDS SUMMARY | 2025-01-10 15:22 | XMS_ITS | Patient Health Record ---
Author Organization [facility] Address [address] [place] [address] Care Team Providers Care Rd Scientist Name Role Phone Spencer Stanley MD Primary Care Provider Dany Regan Unavailable [phone] ALLERGIES Allergen (clinical drug ingredient) Drug/Non Drug [...] or abscess without bleeding (K57.32) Active confirmed 8117744 Problem Encounter for screening for malignant neoplasm of colon (Z12.11) Active confirmed 442627699 Problem Gastroesophageal reflux disease without esophagitis (K21.9) Active confirmed 806997981 Problem Elevated liver enzymes (R74.8) Active confirmed 440645501 Problem Diverticulitis of colon (K57.32) Active confirmed Diverticuliti s of colon (651161910) Problem NSAID long-term use (Z79.1) Active confirmed 064149153 Problem Hx of adenomatous colonic polyps (Z86.010) Active confirmed 514397679 VITAL SIGNS Blood pressure diastolic 11 mm Hg 12/06/2024 Height 63.75 in 12/06/2024 Blood pressure systolic 111 mm Hg 12/06/2024 Weight 136 lbs 12/06/2024 BMI 23.53 kg/m2 12/06/2024 Encounters Encounter Location Date Provider Diagnosis [facility] [address] [place] [address] 12/06/2024 Dany Willis Diverticulitis of co laya K57.32 ASSESSMENTS Encounter Date Diagnosis Assessment Notes Treatment Notes Treatment Clinical Notes 12/06/2024 Diverticulitis of colon (ICD-10 - K57.32) Repeat colonoscopy in 04/2026 Go on a liquid diet for 1 or 2 days if the diverticulitis flares up, but definitely go on antibiotics if not getting better Need [facility] CT scan in 2023 PLAN OF TREATMENT Pending Test Test Name Order Date LIVER PROFILE 11/02/2018 Future Test Test Name Order Date UPPER GI ENDOSCOPY 11/28/2014 COLONOSCOPY 11/28/2014 COLONOSCOPY 03/12/2021 Insurance Providers Payer Name Payer Address Payer Phone Subscriber Number Group Number Insured Name Patient Relationship to Insured Coverage Start Date Coverage End Date MEDICARE OF [place] [address] [place] [address] [phone] [id number] LICHA ARBOLEDA Self - patient is the insured [employer] ATT[employer] CLAIMS [address] [place] [address] [id number] LICHA ARBOLEDA Self - patient is the insured MEDICAL (GENERAL) HISTORY Medical History History ICD Code 2003 and 05/07/2009 Colonoscopy--negative for polyps Tubular adenoma--removed in 2000 Internal hemorrhoids Diverticulosis-mild divertic ulitis of the distal descending/proximal sigmoid colon described on a CT scan in 12/2012, 11/2016, and 09/2018 GERD--EGD in 2004-small HH--no esophagit is, no Arevalo's Hiatal hernia Denies OK,DM,CVA,Lung disease,renal dise ase Osteoporosis Negative abdominal ultrasound in 01/2015--colonoscopy with sma ll tubular adenomas removed, diverticulosis, and internal hemorrhoids 01/2015-EGD with a small hiat al hernia, but no esophagitis nor Arevalo's esophagus Hx of kidney stones Hypertension Colonoscopy 04/2021 with a single tubular adenoma Diverticulitis 2023--had a CT at [facility] [place] Surgical History Surgery Date(Month/Year) Hammer toe Hysterectomy w/removal of 1 ovary
--- OUTSIDE RECORDS SUMMARY | 2025-01-10 15:22 | XMS_ITS ---
Author Organization Spencer Stanley MD Address [address] [place] [phone] Care Team Providers Care Medicare Biller Name Role Phone Spencer Stanley Primary Care [...] 20 MG TAKE [address] [facility] EVERY DAY 30 MINUTES BEFORE [...] (Phytonadione) Not-Taking Finacea 15 % 1 application Claims Manager ally ONCE A DAY IN THE EVENING Active Vital Signs Blood pressure systolic 164 mm Hg 12/13/19 25 Blood pressure diastolic 80 mm Hg 025 Heart Rate 60 /min 12/13/2024 Height 64 in 12/13/2024 Weight 140 lbs 12/13/2024 BMI 24.03 kg/m2 12/13/2024 weight is down 4 pounds [facility] e 11-14-24 Encounters Encounter Location Date Provider Diagnosis Spencer Stanley MD [address] [facility] [address] [place], [place] [phone] 12/13/2024 Spencer Stanley Essential hypertension I10 and [...] Provider Name:Spencer correa, 01/12/2025 09:30:00 AM, [address], [address], [place], [place], [phone], Progress Notes * Maday ARBOLEDA MDOB:[birth year] (74 yo F)Acc No.[id number]:12/13/2024 Progress Notes Patient:?Maday ARBOLEDA Provider:?Spencer Stanley MD :1950???Age:74 Y???Sex:Female D ate:12/13/2024 Address:[address] [place] [address], [place], [id number] Subjective: * Chief Complaints: * ???Pain under [...] MD Date:?0 12/13/2024 Generated for Kwaku hernández/Jameson/Chrissmitting on:?01/10/2025 03:22 PM EST History and Physical Notes * [...]
--- OUTSIDE RECORDS SUMMARY | 2025-01-10 15:23 | XMS_ITS ---
Author Organization [facility] Address [address] [place] [address] Care Team Providers Care Anesthesiologist Name Role Phone Spencer Stanley MD Primary Care Provider Sarabjit Caballero [phone] REASON FOR VISIT 38 pedags Encounters Encounter Location Date Provider [facility] [address] [place] [address] 11/17/2024 Sarabjit Manriquez Plan Of Treatment No Information Progress Notes * Maday ARBOLEDA MDOB:[birth year] (74 yo F)Acc No.[id number]:11/17/2024 Patient:?Maday ARBOLEDA :1950???Age:74 Y???Sex:Female Address:[place] [address] * true * Date:? Generated for Shimai edgar/Jameson/eTransmitting on:?01/10/2025 03:23 PM EST
--- OUTSIDE RECORDS SUMMARY | 2025-01-10 15:23 | XMS_ITS ---
Author Organization [facility] Address [address] [place] [address] Care Team Providers Care Ends Down Checker Name Role Phone Spencer Stanley MD Primary Care Provider Sarabjit Caballero [phone] REASON FOR VISIT BUY Pedag [employer] (red) #38 / L 8 Encounters Encounter Location Date Provider Diagnosis [facility] [address] [place] [address] 11/15/2024 Sarabjit Manriquez Plan Of Treatment No Information Progress Notes * Maday ARBOLEDA MDOB:[birth year] (74 yo F)Acc No.[id number]:11/15/2024 Patient:?Maday ARBOLEDA :1950???Age:74 Y???Sex:Female Address:[facility] [place] [address] * true * Date:? Generated for Printi ng/Farosag/eTransmitting on:?01/10/2025 03:22 PM EST
--- OUTSIDE RECORDS SUMMARY | 2025-01-10 15:23 | XMS_ITS ---
Author Organization [facility] Address [address] [facility] [place] [address] Care Team Providers Care Driller Portable Name Role Phone Spencer Stanley MD Primary Care Provider Sarabjit Caballero Unavailable [phone] Allergies Allergen (clinical drug ingredient) Drug/Non Drug [...] W/U Status Risk Notes Problem Plantar wart (77709150) Plantar wart (B07.0) Active confirmed Problem 570428603 Onychomycosis (B35.1) Active confirmed Vital Signs Height 5 ft 4 in in 11/15/2024 Weight 142 lbs 11/15/2024 BMI 24.37 kg/m2 11/15/2024 Blood pressure systolic 120 mm Hg 11/15/19 25 Blood pressure diastolic 80 mm Hg 025 Procedures Procedure Date Ordered Date Performed Result Body Sit e 21030-JHJEKGK NAIL, 1-11/15/2024 N/A 44511-Nmuj Destruction, 11-2211/15/2024 N/A Encounters Encounter Location Date Provider Diagnosis [facility] [address] [address] 11/15/2024 Sarabjit Manriquez Pain in left toe(s) [...] Treatment Pending Test Test Name Order Date 69375-JWOFYWU NAIL, 1-5 11/15/2024 09485-Wtdz Destruction, 1-11/15/2024 Next Appt Details Follow Up: prn, Reason: Procedure Notes * Category Sub-Category Detail Notes Wart Treatment Procedure Verruca, as desc ribed in exam, were debrided to pin-point bleeding margins with sterile 15 surgical blade, silver nitrate chemocautery applied, recomm. immune-boosting meds such as zinc, recomm. follow up with topical chemosurgical agents, Pt defers any other forms of tx - 06055 Debride Nails 1-5 Procedure: Due to the [...] necessary to maintain effective symptomatic relief - 00694 Progress Notes * Maday ARBOLEDA MDOB:[birth year] (74 yo F)Acc No.[id number]:11/15/2024 Progress Note Patient:?Maday ARBOLEDA Provider:?Sarabjit Manriquez DPM :1950???Age:74 Y???Sex:Female D ate:11/15/2024 Address:[address] [place] [address], [place], [phone] Pcp:Spencer Stanley MD Subjective: * Chief Complaints: [...] gardening/yard work, yoga. ?Marital status: . 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 * Medications:?TakingdilTIAZem HCl ER , Notes to [...] Uncomplicated (3)??? Plan: * Treatment: 2.?Plantar wart?Procedure: 82370-Xijr Destruction, 1-14 * Procedures:?Debride Nails 1-5:?Procedure:?Due to [...] necessary to maintain effective symptomatic relief - 56279.?Wart Treatment:?Procedure?Verruca, as described in exam, were debrided to pin-point bleeding margins with sterile 15 surgical blade, silver nitrate chemocautery applied, recomm. immune-boosting meds such as zinc, recomm. follow up with topical chemosurgical agents, Pt defers any other forms of tx - 14001.? * Procedure Codes:?28683 DEBRI DE NAIL, 1-5, Modifiers: XS 97989 Wart Destruction, 1-14, Modifiers: XS 1036F TOBACCO [...] Manriquez DPM Date:?2024 Generated for Kwaku hernández/Jameson/Yousuf on:?01/10/2025 03:23 PM EST History and Physical Notes * [...]
== END 2025-01-10 13:15 | disposition home or self-care (01) ==
PROVIDERS: PCP Internal Medicine; Visit Provider Internal Medicine
DX: R94.31 Abnormal electrocardiogram [ECG] [EKG] (principal); I10 Essential (primary) hypertension
CPT/HCPCS: 93010; 99204; G2211

== ENCOUNTER → 2025-01-10 12:19 | Outpatient (BNVA) | payer MEDICARE, SELFPAY | PROVIDERS: PCP Internal Medicine; Visit Provider Internal Medicine | DX: R94.31 Abnormal electrocardiogram [ECG] [EKG] (principal); I10 Essential (primary) hypertension | CPT/HCPCS: 93005; 99202 ==

== ENCOUNTER 2025-01-12 09:30 | Outpatient (REF) | payer MEDICARE, SELFPAY ==
--- OUTSIDE RECORDS SUMMARY | 2025-01-12 15:57 | XMS_ITS | Patient Health Record ---
Author Organization Spencer Stnaley MD Address [address] [place] [address] [phone] Care Team Providers Care Metalworking Specialist Name Role Phone Spencer Stanley Primary Care Provider Allergies Allergen (clinical drug ingredient) Drug/Non Drug Allergy documented on EMR Reaction Allergy Type Onset Date Status epinephrine (uncoded) heart palpitations Allergy Active tetracycline tetracycline (uncoded) rash Allergy Active Results Component Value Reference Range Notes Sodium Reviewed date:06/20/2024 12:38:09 PM Interpretation: Performing Lab:[facility], [address] [place] [phone] Notes/Report: Sodium 136 135-145 mmol/L Sodium Reviewed date:07/22/2024 03:46:24 PM Interpretation: Performing Lab:[facility], [address] [place] [phone] Notes/Report: Sodium 130 135-145 mmol/L Complete Blood Count Auto Di ff Reviewed date:01/05/2025 04:35:02 PM Interpretation: Performing Lab:[facility], [address] [place] [phone] Notes/Report: White Blood Count 5.0 4.8-10.8 X10*3/uL [...] NRBC Abs Auto 0.000 0.0-0.012 X10*3/uL Comprehensive [place]. Panel Fa st Reviewed date:01/05/2025 12:43:17 PM Interpretation: Performing Lab:[facility], [address] [place] [phone] Notes/Report: Sodium 140 135-145 mmol/L Potassium 4.1 [...] Panel Reviewed date:01/05/2025 12:43:41 PM Interpretation: Performing Lab:[address] [phone] Notes/Report: Bilirubin Direct 0.2 0.0-0.5 mg/dL Lipid Panel Reviewed date:01/05/2025 12:43:26 PM Interpretation: Performing Lab:[address] [phone] Notes/Report: Triglycerides 59 <150 mg/dL Desirable Triglyceride: [...] Total Reviewed date:01/05/2025 12:43:34 PM Interpretation: Performing Lab:[facility], [address] [place] [phone] Notes/Report: Vitamin D 25-OH Total 62.4 >30 [...] confirmed with another method such as LC-MS/MS. Occult Blood, Stool, Guaiac Reviewed date:01/12/2025 10:30:48 AM Interpretation:Negative Performing Lab: Notes/Report: Negative Occult Blood, Stool, Guaiac Neg UA ClnCatch+Micro w/rflx Cul t Reviewed date:01/12/2025 11:52:13 AM Interpretation: Performing Lab:[facility], [address] [place] [phone] Notes/Report: Urine, Clean Catch Color Urine Yellow Appearance Urine Clear PH 6.5 5.0-9.0 Glucose Urine UA Negative Negative mg/dL Urine Blood Negative Negative Specific Rhodes - Urine 1.010 1.005-1.025 Urine Protein Negative Neg-Trace mg/dL Urine Ketones Negative Negative mg/dL Nitrite Urine Negative Negative Leukocyte Esterase Urine Negative Negative RBC Urine 0-2 0-2 /HPF WBC Urine 0-5 0-5 /HPF Squamous Epithelial Cell Urine 0-2 0-2 /HPF Bacteria Urine None Seen None Seen Hyaline Casts Urine 0-2 0-2 /LPF Urinalysis and Microscopic Reviewed date:06/24/2024 12:19:06 PM Interpretation: Performing Lab:[facility], [address] [place] [phone] Notes/Report: Color Urine Yellow Appearance Urine Clear PH 6.0 5.0-9.0 Glucose Urine UA Negative Negative mg/dL Urine Blood Negative Negative Specific Rhodes - Urine 1.010 1.005-1.025 Urine Protein Negative Neg-Trace mg/dL Urine Ketones Negative Negative mg/dL Nitrite Urine Negative Negative Leukocyte Esterase Urine Trace Negative RBC Urine 0-2 0-2 /HPF WBC Urine 0-5 0-5 /HPF Squamous Epithelial Cell Urine 0-2 0-2 /HPF Bacteria Urine None Seen None Seen Hyaline Casts Urine 0-2 0-2 /LPF Urine Culture Reviewed date:06/26/2024 06:31:44 PM Interpretation: Performing Lab:[facility], [address] [place] [phone] Notes/Report: Urine Culture No growth. Complete Blood Count Auto Di ff Reviewed date:06/30/2024 04:04:48 PM Interpretation: Performing Lab:[address] [phone] Notes/Report: White Blood Count 9.4 4.8-10.8 X10*3/uL Red Blood Count 4.05 4.20-5.50 X10*6/uL Hemoglobin 13.9 12.0-16.0 g/dl Hematocrit 39.9 37.0-47.0 % Mean Corpuscular Volume 98.5 80.0-98.0 fL Mean Corpuscular Hemoglobin 34.3 27.0-33.0 pg Mean Corpuscular HGB Conc 34.8 31.0-35.0 g/dl Red Cell Distribution Width 12.5 11.0-16.0 % Platelet Count 259 160-400 X10*3/uL Mean Platelet Volume 10.1 9.4-12.3 fL Neutrophils Percent Auto 82.4 45-73 % Imm Gran Pct Auto 0.3 0.0-0.4 % Lymphocytes Percent Auto 9.4 20-40 % Monocytes Percent Auto 7.5 2-11 % Eosinophils Percent Auto 0.2 0-4 % Basophils Percent Auto 0.2 0-2 % NRBC Pct Auto 0.0 0.0-0.2 /100WBC Neutrophils Absolute Auto 7.8 2.0-8.3 x10*3/u L Imm Gran Abs Auto 0.03 0.00-0.03 X10*3/uL Lymphocytes Absolute Auto 0.9 1.2-4.9 X10*3/u L Monocytes Absolute Auto 0.7 0.1-1.2 X10*3/uL Eosinophils Absolute Auto 0.0 0.0-0.4 X10*3/u L Basophils Absolute Auto 0.0 0.0-0.2 X10*3/uL NRBC Abs Auto 0.000 0.0-0.012 X10*3/uL Blood Urea Nitrogen Reviewed date:06/30/2024 04:03:45 PM Interpretation: Performing Lab:[facility], [address] [place] [phone] Notes/Report: Blood Urea Nitrogen 10 9-16 mg/dL Sodium Reviewed date:09/01/2024 12:26:42 PM Interpretation: Performing Lab:[facility], [address] [place] [phone] Notes/Report: Sodium 137 135-145 mmol/L Sodium Reviewed date:04/12/2024 12:45:35 PM Interpretation: Performing Lab:[facility], [address] [place] [phone] Notes/Report: Sodium 131 135-145 mmol/L Creatinine Reviewed date:06/30/2024 04:03:53 PM Interpretation: Performing Lab:[facility], [address] [place] [phone] Notes/Report: Creatinine 0.73 0.5-1.4 mg/dL Estimated Glomerular Filt Rate > 60 NOTE: For -Mosotho individuals, multiply the result by 1.210. Chronic Kidney Disease: Estimated GFR < 60 mL/min/1.73m2 Severe Kidney Disease: Estimated GFR < 15 mL/min/1.73m2 Electrolytes Reviewed date:09/22/2024 06:06:11 PM Interpretation: Performing Lab:[facility], [address] [place] [phone] Notes/Report: Sodium 137 135-145 mmol/L Potassium 4.4 3.3-5.1 mmol/L Chloride 105 96-108 mmol/L Carbon Dioxide 29 22-29 mmol/L Anion Gap 7 12-20 Uric Acid Reviewed date:09/22/2024 06:05:36 PM Interpretation: Performing Lab:[facility], [address] [place] [phone] Notes/Report: Uric Acid 2.6 2.4-5.7 mg/dL TSH reflex Free T4 Reviewed date:09/22/2024 06:05:26 PM Interpretation: Performing Lab:[facility], [address] [place] [phone] Notes/Report: TSH reflex Free T4 1.71 0.32-4.0 uIU/mL Aldosterone Reviewed date:10/03/2024 12:34:25 PM Interpretation: Performing Lab:[facility], [address] [place] [phone] Notes/Report: Aldosterone TNP Renin Reviewed date:09/30/2024 04:47:30 PM Interpretation: Performing Lab:[facility], [address] [place] [phone] Notes/Report: Renin 2.86 0.25-5.82 ng/mL/h This test was developed and its analytical performance characteristics have been determined by [facility] [place], [place]. It has not been cleared or approved by the U.S. Food and Drug Administration. This assay has been validated pursuant to the CLIA regulations and is used for clinical purposes. THIS TEST WAS PERFORMED AT: [facility] [address] PAT CUMMINGS MD,PHD Aldost/Renin Reviewed date:10/03/2024 12:35:02 PM Interpretation: Performing Lab:[facility], [address] [place] [phone] Notes/Report: Aldosterone 2 see note ng/dL Unable to flag abnormal result(s), please refer to reference range(s) below: Adult Reference Ranges for Aldosterone, LC/MS/MS: Upright 8:00 - 10:00 am < or = 28 ng/dL Upright 4:00 - 6:00 pm < or = 21 ng/dL Supine 8:00 - 10:00 am 3 - 16 ng/dL THIS TEST WAS PERFORMED AT: [facility] [address] PAT CUMMINGS MD,PHD Plasma Renin Activity 2.58 0.25-5.82 ng/mL/h Aldosterone/Renin Ratio 0.8 0.9-28.9 Ratio This test was developed and its analytical performance characteristics have been determined by [facility] [place], [place]. It has not been cleared or approved by the U.S. Food and Drug Administration. This assay has been validated pursuant to the CLIA regulations and is used for clinical purposes. THIS TEST WAS PERFORMED AT: [facility] [place] [id number] [place] [address] PAT CUMMINGS MD,PHD Metanephrines, Plasma Reviewed date:09/29/2024 05:20:12 PM Interpretation: Performing Lab:[facility], [address] [place] [phone] Notes/Report: Metanephrine, Free 47 <=57 pg/mL This test was developed and its analytical performance characteristics have been determined by [facility] [place], [place]. It has not been cleared or approved by the U.S. Food and Drug Administration. This assay has been validated pursuant to the CLIA regulations and is used for clinical purposes. Normetanephrines, Free 208 <=148 pg/mL This test was developed and its analytical performance characteristics have been determined by [facility] [place], [place]. It has not been cleared or approved by the U.S. Food and Drug Administration. This assay has been validated pursuant to the CLIA regulations and is used for clinical purposes. Total Metanephrine, Free 255 <=205 pg/mL For additional information, please refer to http://education.Pinocular.Nimbix/faq/MetFractFree (This link is being provided for informational/educatio informational/educational purposes only.) Elevations >4-fold upper reference range: strongly suggestive of a pheochromocytoma(1). Elevations >1- 4-fold upper reference range: significant but not diagnostic, may be due to medications or stress. Suggest running 24 hr urine fractionated metanephrines and/or serum Chromagranin A for confirmation. Reference: (1)Sam Carranza et al, Plasma Chromogranin A or Urine Fractionated Metanephrines Follow-Up Testing Improves the Diagnostic Accuracy of Plasma Fractionated Metanephrines for Pheochromocytoma. The Journal of Clinical Endocrinology # Metabolism 93(1), 91-95, 2008. This test was developed and its analytical performance characteristics have been determined by [facility] [place], [place]. It has not been cleared or approved by the U.S. Food and Drug Administration. This assay has been validated pursuant to the CLIA regulations and is used for clinical purposes. THIS TEST WAS PERFORMED AT: [facility] [address] [place] [address] PAT CUMMINGS MD,PHD Osmolality Urine Reviewed date:09/22/2024 03:17:39 PM Interpretation: Performing Lab:[address] [phone] Notes/Report: Osmolality Urine 243 327-3465 mosm/kg Sodium Urine Random Reviewed date:09/22/2024 12:50:43 PM Interpretation: Performing Lab:[address] [phone] Notes/Report: Sodium Urine Random 21.0 Immunofixation Pnl, Serum Reviewed date:09/27/2024 08:14:33 PM Interpretation: Performing Lab:[address] [phone] Notes/Report: IgG 872 520-6067 mg/dL IgA 308 70-320 mg/dL IgM 95 50-300 mg/dL THIS TEST WAS PERFORMED AT: [facility] [address] [address] SARA BARAJAS MD Immunofixation Interpretation SEE NOTE Normal pattern. No monoclonal proteins detected. Cortisol Random Reviewed date:09/22/2024 05:36:07 PM Interpretation: Performing Lab:[address] [address] Notes/Report: Cortisol Random 11.8 Reference Range*: Before 10 am 6.2-19.4 ug/dL After 5 pm 2.3-11.9 ug/dL *Please interpret above results accordingly. This test was performed using the Boyd chemiluminescent method. Values obtained from different assay methods cannot be used interchangeably. Patients receiving fludrocortisone, prednisolone or prednisone may show artificially elevated cortisol values due to cross-reactivity. Ramos Pichardo Reviewed date:01/05/2025 12:42:55 PM Interpretation: Performing Lab:[address], [place] [address] Notes/Report: Hold Gold See Note Specimen held untested for 24 hours; Call to request Chemistry testing. Reason For Referral Reason acute diverticulitis Diagnosis 1 Acute diverticulitis (K57.92) Referral Organization Spencer Stanley MD Referring Provider First Name Spencer Referring Provider Last Name Jaden Referring Provider Speciality Internal edicine Referred Provider Dany Mckinney Referred Provider Specialty Gastroentero logy General Notes Maria Del Carmen Borrego 11:40:54 AM EDT > info faxed Elmo Annette 08/05/2024 03:21:51 PM EDT > patient is aware of appt Referral Priority Routine Referral Appointment Date 12/06/2024 Reason hyonatremia Essentia l hypertension Diagnosis 1 Hyponatremia (E87.1) Diagnosis 2 Essential hypertensi on (I10) Referral Organization Spencer Stanley MD Referring Provider First Name Spencer Referring Provider Last Name Jaden Referring Provider Speciality Internal edicine Referred Provider NAFISA NICHOLS Referred Provider Specialty Nephrology General Notes Maria Del Carmen Borrego 11:56:39 AM EDT > info faxed Elmo Annette 09/12/2024 01:08:49 PM EST > appt is at their [facility] office [address] [facility] [address] Nichols, patient is aware of appt Referral Priority Routine Referral Appointment Date 09/15/2024 Medications Medication SIG (Take, Route, Frequency, Duration) Notes Start Date End Date Status Tylenol 8 Hour Arthritis Pain 650 MG 2 tablets as needed Orally every 8 hrs Not-Taking Omeprazole 20 MG TAKE 1 CAPSULE BY [facility] EVERY DAY 30 MINUTES BEFORE BREAKFAST for 90 Not-Taki ng Melatonin 5 MG 1 tablet at bedtime and a 1mg tablet Orally at bedtime Not-Taking Vitamin D-3 1000 UNIT 1 capsule Orally O nce a day Not-Taking Finacea 15 % 1 application Anatomical Embalmer ally ONCE A DAY IN THE EVENING Active Econazole Nitrate 1 % 1 application Exte rnally Once a day for 14 day(s) 10/29/2021 Not-Bashir ing dilTIAZem HCl 60 MG as directed Orally Active Valtrex 500 MG 1 tablet Orally ever y 12 hrs for 10 day(s) Not-Taking Vistaril 25 MG 1 capsule as needed Orally every 8 hrs as needed for 30 days 2021 Not-Taking Vitamin K (Phytonadione) Not-Taking Dilt-XR 120 MG 1 capsule Orally Onc e a day Active Valsartan 320 MG 1 tablet Orally Once a day Active Immunizations Vaccine Route Administration Date Status Comme nts DECLINED, FLU Unknown 09/26/2013 Administered Shingles IM Intramuscular 08/28/2014 Administered Shingrix IM Intramuscular 01/03/2019 Administered Shingrix IM Intramuscular 05/24/2019 Administered PPSV23 (Pnemovax) IM Intramuscular 05/28/2020 Administered Influenza High Dose IM Intramuscular 07/19/2020 Administer ed SARS-COV-2 Moderna Unknown 01/08/2021 Administered SARS-COV-2 Moderna Unknown 02/05/2021 Administered Influenza High Dose IM Intramuscular 07/25/2021 Administer ed SARS-COV-2 Moderna Unknown 09/23/2021 Administered SARS-COV-2 Moderna Unknown 03/19/2022 Administered Influenza High Dose IM Intramuscular 09/11/2022 Administer ed Influenza High Dose IM Intramuscular 07/31/2023 Administer ed Influenza High Dose IM Intramuscular 07/22/2024 Administer ed DECLINED, FLU Unknown 09/25/2014 Refused Flu Vaccine Unknown 10/09/2015 Refused PPSV23 (Pnemovax) Unknown 10/16/2015 Refused Fluarix Quadrivalent Unknown 08/06/2017 Refused Fluarix Quadrivalent Unknown 09/27/2018 Refused Prevnar 13 Unknown 09/27/2018 Refused Social History Tobacco Use: Social History Observation [...] Problem Status W/U Status Risk Notes Problem 28551551 Age-related osteoporosis without current pathological fracture (M81.0) Active confirmed Problem 146122155 Acute diverticulitis (K57.92) Active confirmed Problem 349069609 Reflux esophagit is (K21.00) Active confirmed Problem Vitamin D deficiency (37261279) Vitamin D deficiency (E55.9) Active confirmed Problem 419217265 Diverticulitis (K57.92) Active confirmed Problem Chronic frontal sinusitis (83577331) Chronic frontal sinusitis (J32.1) Active confirmed Problem 2296284 Diverticulitis o f large intestine without perforation or abscess without bleeding (K57.32) Active confirmed Problem 687035441 Other specified menopausal and perimenopausal disorders (N95.8) Active confirmed Problem 633590957 Lumbar disc disease (M51.9) Active confirmed Problem 703767959 Elevated LFTs (R79.89) Active confirmed Problem 438390620 Tubular adenoma of colon (D12.6) Active confirmed Problem 57442478 Essential hypertension (I10) Active confirmed Problem Osteoporosis (61307700) Osteoporosis (M81.0) Active confirmed Problem Disorder of female genital organs (963476104) Acute pelvic pain, female (N94.9) Active confirmed Problem 47558737 Oropharyngeal dysphagia (R13.12) Active confirmed Problem 46141393 Peptic ulcer disease (K27.9) Active confirmed Problem 88818686 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 confirmed Problem 083956639 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) Active confirmed Problem Macrocytosis - no anemia (286589649) Macrocytosis without anemia (D75.89) Active confirmed Vital Signs Heart Rate 60 /min 12/13/2024 weight is down 4 pounds since 11-14-24 Blood pressure diastolic 72 mm Hg 01/12/2025 Height 64 in 01/12/2025 Blood pressure systolic 144 mm Hg 01/12/2025 Weight 141 lbs 01/12/2025 BMI 24.2 kg/m2 01/12/2025 Encounters Encounter Location Date Provider Diagnosis Spencer Stanley MD [address] [place] [id number] 04/12/2024 Spencer Stanley Hyponatremia E87.1 Spencer Stanley MD [address] [place] [address] Drive [address] [place] [address] [id number] 06/20/2024 Spencer Stanley Hyponatremia E87.1 Spencer Stanley MD [address] [place] [address] [id number] 07/22/2024 Spencer Celineardier Hyponatremia E87.1 a nd Encounter for immunization Z23 Spencer Stanley MD [address] [place] [address] [id number] 11/25/2024 Spenceryobany Stanley Essential hypertensi on I10 Spencer Stanley MD [address] [place] [address] [id number] 01/05/2025 Spenceryobany Stanley Essential hypertensi on I10 ; Vitamin D deficiency E55.9 and Elevated LFTs R79.89 Spencer Stanley MD [address] [place] [address] [id number] 01/12/2025 Spencer Stanley Essential hypertensi on I10 ; Macrocytosis without anemia D75.89 ; Elevated LFTs R79.89 ; Vitamin D deficiency E55.9 ; Colon cancer screening Z12.11 and Depression screening Z13.31 Spencer Stanley MD [address] [place] [address] [id number] 05/23/2024 Spencer Stanley Hyponatremia E87.1 Spencer Stanley MD [address] [place] [address] [id number] 06/24/2024 Spencer Stanley Essential hypertensi on I10 ; Hyponatremia E87.1 ; Atrophy of vagina N95.2 and Dysuria R30.0 Spencer Stanley MD [address] [place] [address] [id number] 06/27/2024 Spencer Stanley Acute diverticulitis K57.92 Spencer Stanley MD [address] [place] [address] [id number] 06/30/2024 Spencer Stanley Acute diverticulitis K57.92 and Encounter for preprocedural laboratory examination Z01.812 Spencer Stanley MD [address] [place] [address] [id number] 08/02/2024 Spencer Stanley Acute diverticulitis K57.92 ; Hyponatremia E87.1 and Upper abdominal pain R10.10 Spencer Stanley MD [address] [place] [address] [id number] 08/19/2024 Spencer Stanley Acute diverticulitis K57.92 Spencer Stanley MD [address] [place] [address] [id number] 09/01/2024 Spencer Celineardier Hyponatremia E87.1 Spencer Stanley MD [address] [place] [address] [id number] 09/02/2024 Spencer Bombardier Essential hypertensi on I10 and Hyponatremia E87.1 Spencer Stanley MD [address] [place] [address] [id number] 09/08/2024 Spencer Bombardier Essential hypertensi on I10 and Hyponatremia E87.1 Spencer Stanley MD [address] [place] [address] [id number] 09/09/2024 Spencer Celineardier Essential hypertensi on I10 and Hyponatremia E87.1 Spencer Stanley MD [address] [place] [address] [id number] 09/15/2024 Spencer Celineardier Essential hypertensi on I10 and Hyponatremia E87.1 Spencer Stanley MD [address] [place] [address] [id number] 09/22/2024 Spencer Bombardier Essential hypertensi on I10 and Hyponatremia E87.1 Spencer Stanley MD [address] [place] [address] [id number] 10/13/2024 Spencer Celineardier Essential hypertensi on I10 and Hyponatremia E87.1 Spencer tSanley MD [address] [place] [address] [id number] 11/14/2024 Spencer Stanley Viral URI J06.9 Spencer Stanley MD [address] [place] [address] [id number] 12/13/2024 Spencer Stanley Essential hypertensi on I10 and Abdominal wall pain R10.9 Spencer Stanley MD [address] [place] [address] [id number] 01/09/2025 Spencer Stanley MD [address] [place] [address] [id number] 06/24/2024 Spencer Stanley MD [address] [place], [place] [id number] 06/30/2024 Spencer Stanley MD [address] [place] [address] [id number] 09/05/2024 Spencer Stanley Assessments Encounter Date Diagnosis (ICD Code) Assessment Notes Treatment Notes Treatment Clinical Notes Section Notes 04/12/2024 Hyponatremia (ICD-10 - E87.1) 06/20/2024 Hyponatremia (ICD-10 - E87.1) 07/22/2024 Hyponatremia (ICD-10 - E87.1) 07/22/2024 Encounter for immunization (ICD-10 - Z23) 11/25/2024 Essential hypertension (ICD-10 - I10) going to take the medicine as directed and call me next week if still high 01/05/2025 Essential hypertension (ICD-10 - I10) 01/12/2025 Essential hypertension (ICD-10 - I10) stable, will cntinue current regiment 01/12/2025 Macrocytosis without anemia (ICD-10 - D75.89) will continue to monitor 05/23/2024 Hyponatremia (ICD-10 - E87.1) pendinglabs, patient verblaized understanding of medication and direction for use, Total time spent on the date of the encounter is 35 minutes including both face to face time spent and time spent reviewing documentation, and counseling the patient. 06/24/2024 Essential hypertension (ICD-10 - I10) bp has gone up without the diuretic, patient verbalized understanding of medication and directions for use 06/27/2024 Acute diverticulitis (ICD-10 - K57.92) patient verbalizd understanding of medictionand directions for use 06/30/2024 Acute diverticulitis (ICD-10 - K57.92) pending diagnostic testing/ booked at [facility] 07-01-24 2:30am 06/30/2024 Encounter for preprocedural laboratory examination (ICD-10 - Z01.812) 08/02/2024 Acute diverticulitis (ICD-10 - K57.92) referral to dr mckinney for colonoscopy 08/02/2024 Hyponatremia (ICD-10 - E87.1) 08/19/2024 Acute diverticulitis (ICD-10 - K57.92) patient verbalized understanding of medication and directions for use 09/01/2024 Hyponatremia (ICD-10 - E87.1) 09/02/2024 Essential hypertension (ICD-10 - I10) patient verbalized undestanding of medication and directions for use 09/02/2024 Hyponatremia (ICD-10 - E87.1) not able to take diuretic due to hyponatremia 09/08/2024 Essential hypertension (ICD-10 - I10) she stopped the valsartan when she started. restart the valsartan/ order faxed to [facility] dept, patient verbalized understanding of directions for medication 09/08/2024 Hyponatremia (ICD-10 - E87.1) not able to use hctz due to hyponatremia 09/09/2024 Essential hypertension (ICD-10 - I10) try to take the meds. was scared this morning and pulse was 120 and came down in few seconds/ referral to nephrology 09/09/2024 Hyponatremia (ICD-10 - E87.1) prevents us from using the diuretics 09/15/2024 Essential hypertension (ICD-10 - I10) still running high, will consider vasartan and hctz and recheck next week 09/15/2024 Hyponatremia (ICD-10 - E87.1) has resolved 09/22/2024 Essential hypertension (ICD-10 - I10) doing much better/ going to see gamemaster 09/22/2024 Hyponatremia (ICD-10 - E87.1) he has her on a strict fluid control, will contnue to monitor 10/13/2024 Essential hypertension (ICD-10 - I10) doing well on meds, will continue current regiment 10/13/2024 Hyponatremia (ICD-10 - E87.1) will check in few weeks 11/14/2024 Viral URI (ICD-10 - J06.9) has been getting better. will just observe. no reason for any antibiotics 12/13/2024 Essential hypertension (ICD-10 - I10) finally well controlled. have explained that she may need to put up with some of the side effects, will continue current regiment 12/13/2024 Abdominal wall pain (ICD-10 - R10.9) already had a negative ct, will observe 01/05/2025 Vitamin D deficiency (ICD-10 - E55.9) 01/12/2025 Elevated LFTs (ICD-10 - R79.89) stable, will continue to monitor 06/24/2024 Hyponatremia (ICD-10 - E87.1) will continue to monitor 06/24/2024 Atrophy of vagina (ICD-10 - N95.2) should try the estrogen cream 08/02/2024 Upper abdominal pain (ICD-10 - R10.10) seems that it is just postural 01/05/2025 Elevated LFTs (ICD-10 - R79.89) 01/12/2025 Vitamin D deficiency (ICD-10 - E55.9) stabe, will continue current regiment and will continue to monitor 06/24/2024 Dysuria (ICD-10 - R30.0) pending labs 01/12/2025 Colon cancer screening (ICD-10 - Z12.11) guaiac negative 01/12/2025 Depression screening (ICD-10 - Z13.31) negtive screen Plan Of Treatment Pending Test Test Name Order Date Electrocardiogram (EKG) 12/02/2018 Electrocardiogram (EKG) 12/15/2019 Electrocardiogram (EKG) 10/23/2016 CT ABD & PELVIS WITH CONTRAST 06/30/2024 XR GI SERIES 09/13/2021 BONE DENSITY DEXA 06/15/2023 BONE DENSITY DEXA 12/15/2019 US ABD 09/08/2024 SARS COV2 IGG 04/30/2020 Vitamin B12 and Folate 01/12/2025 MM tomosynthesis screening BI 12/25/2020 XR DEXA axial skeleton 12/25/2020 US venous duplex LE RT 09/13/2021 XR chest 2V 09/22/2022 UA ClnCatch+Micro w/rflx Cult 01/05/2025 Next Appt Details Provider Name:Spencer correa, 04/13/2025 10:15:00 AM, [address] [place] [address] Drive, [address], [place], [place], [phone], Provider Name:Spencer correa, 01/08/2026 07:30:00 AM, [address], [address], [place], [place], [phone], Provider Name:Spencer correa, 01/15/2026 09:30:00 AM, [address], [address], [place], [place], [phone], Insurance Providers Payer Name Payer Address Payer Phone Subscriber Number Group Number Insured Name Patient Relationship to Insured Coverage Start Date Coverage End Date MEDICARE NHIC [address] [place] [address] [id number] Maday Arboleda Self - patient is the insured MEDEX BCBS OF [facility] [address] [place] [address] [id number] Maday Arboleda Self - patient is the insured Medical (General) History Medical History History ICD Code can tolerate doxycycline without difficu lty Refuses flu [id number] colonoscopy 04/2009 - adenoma due in 5 years for upper and lower; colonoscopy and endo done 02/01/[address] Mckinney (repeat 01/2020) hysterectomy (has one ovary); no paps on ly pelvic exam Tinnitus of left ear colonoscopy done 04/29, due in 5 years
== END 2025-01-12 09:31 | disposition home or self-care (01) ==
LOC: HO.LNP 09:30
PROVIDERS: Visit Provider Internal Medicine
DX: Z13.89 Encounter for screening for other disorder (principal)

== ENCOUNTER 2025-01-12 10:47 | Outpatient (REF) | payer MEDICARE, SELFPAY ==
[2025-01-12 11:24] LABS: Appearance Urine Clear; Color Urine Yellow; Glucose Urine UA Negative (Negative); Leukocyte Esterase Urine Negative (Negative); Nitrite Urine Negative (Negative); PH 6.5 (5.0-9.0); Urine Blood Negative (Negative); Urine Ketones Negative (Negative); Urine Protein Negative (Neg-Trace)
[2025-01-12 11:31] LABS: Bacteria Urine None Seen (None Seen); Hyaline Casts Urine 0-2 /LPF (0-2); RBC Urine 0-2 /HPF (0-2); Squamous Epithelial Cell Urine 0-2 /HPF (0-2); WBC Urine 0-5 /HPF (0-5)
--- OUTSIDE RECORDS SUMMARY | 2025-01-12 13:02 | XMS_ITS ---
Author Organization [facility] Address [address] [place] [address] Care Team Providers Care Medical Staff Physician Name Role Phone Spencer Stanley MD Primary Care Provider Dany Regan [phone] Allergies Allergen (clinical drug ingredient) Drug/Non Drug Allergy documented on EMR Reaction Allergy Type Onset Date Status tetracycline Tetracycline HCl Unknown Drug Allergy Active lidocaine Lidocaine Unknown Drug Allergy Active REASON FOR VISIT PATIENT PRESENTS TODAY FOR ACUTE DIVERTICULITIS Medications Medication SIG (Take, Route, Fr equency, Duration) Notes Start Date End Date Status dilTIAZem HCl ER 60 MG Oral for 30 Days Active Valsartan 320 MG TAKE 1 TABLET BY VICKY TH DAILY Oral for 90 Days Active Social History Alcohol Screen Question Answer Notes Did you [...] Never (0 point) Points 2 Interpretation Negative Section Notes: Nonsmoker; no sig alcohol Problems Problem Type SNOMED Code ICD Code Onset Dates Problem Status W/U Status Risk Notes Problem Diverticulitis of colon (922217577) Diverticulitis of colon (K57.32) Active confirmed Vital Signs Blood pressure systolic 111 mm Hg 12/06/19 25 Blood pressure diastolic 11 mm Hg 025 Height 63.75 in 12/06/2024 Weight 136 lbs 12/06/2024 BMI 23.53 kg/m2 12/06/2024 Encounters Encounter Location Date Provider Diagnosis [facility] [address] [place] [address] 12/06/2024 Dany Willis Diverticulitis of co laya K57.32 Assessments Encounter Date Diagnosis (ICD Code) Assessment Notes Treatment Notes Treatment Clinical Notes Section Notes 12/06/2024 Diverticulitis of colon (ICD-10 - K57.32) Repeat colonoscopy in 04/2026 Go on a liquid diet for 1 or 2 days if the diverticulitis flares up, but definitely go on antibiotics if not getting better Need [facility] CT scan in 2023 Overall, Maday presently appears quite well. She is certainly not having any ongoing issues with her underlying diverticular disease and previous episodes of diverticulitis. Her abdominal exam is benign. We did review the natural history of diverticulitis and diverticular disease with potential for more significant episodes that could be associated with complications such as intra-abdominal abscess and perforation requiring hospitalization, emergent surgery, and even temporary colostomy. However, at this point she has not had anything close to such a significant episode of diverticulitis. We did review that patients who have had frequent episodes of diverticulitis, or certainly with a complication such as an abscess, are many times considered good candidates for elective surgery to have that segment of colon resected so as to avoid future complications. However, based on Maday's history of what seem to be relatively mild and rapidly resolving episodes of diverticulitis I don't think she requires consideration for surgery at this point. Of note, she would like to avoid surgery if at all possible as well. I advised her to continue her healthy diet and to maintain a good bowel regimen without constipation. We did review that if she develops recurrent symptoms of diverticulitis she could also stay on a liquid diet for a day or 2 to see if things improve on their own prior to using antibiotics. However, I did advise her to certainly start antibiotics if her symptoms do not improve or certainly if they worsen. We also reviewed that she should go to the ER if she develops any significant pain or pain that is associated with vomiting, fevers, or bleeding. We did review that if things remain stable I will plan to see her in one year for a followup colonoscopy given her last exam being in 2020 and her previous history of tubular adenomas. However, I did advise her to definitely call me in the interim if she has any problems or questions I can be of assistance with. Maday was very comfortable with this plan. Thank you again for allowing me to participate in Maday's care. I shall continue to keep you advised of her progress. Plan Of Treatment Treatment Notes Assessment Notes Diverticulitis of colon Repeat colonoscopy in 04/2026 Go on a liquid diet for 1 or 2 days if the diverticulitis flares up, but definitely go on antibiotics if not getting better Need [facility] CT scan in 2023 Next Appt Details Follow Up: prn, Reason: Progress Notes * MADAY ARBOLEDADOB:1949 (74 yo F)Acc No.[id number]:12/06/2024 Progress Notes Patient:?MADAY ARBOLEDA Provider:?Dany Willis MD :1950???Age:74 Y???Sex:Female D ate:12/06/2024 Address:[address] [place], [place] [address] [phone] Pcp:Spencer Stanley MD Subjective: * Chief Complaints: * ???PATIENT PRESENTS TODAY FO R ACUTE DIVERTICULITIS * HPI: ???incontinence:? I saw Maday in consultation today in regard to further evaluation of her episodes of diverticulitis and her personal history of tubular adenomas. ?I last saw Maday in April of 2021, at which time she underwent a followup screening colonoscopy with removal of a small tubular adenoma and an inflammatory polyp. She does have a known history of diverticulosis with previous episodes of diverticulitis over the years. She describes a couple of episodes in 2023, most recently as of the Fall. She has never required hospitalization for these episodes. She has never seen a surgeon in regard to her diverticular disease. The most recent episode this past Fall was treated with a course of antibiotics. She does describe having had a CT scan at the time of that episode at [facility] as an outpatient She has not had any problems since that time. Her bowel movements are quite regular and she denies any signs of bleeding. She describes a healthy diet with fruits and vegetables. ?She enjoys a good appetite and denies any significant heartburn or dysphagia. She denies any ongoing abdominal pain, signs of jaundice, nor any unintentional weight loss. She denies any known family history of colon cancer. * ROS:?General/Constitutional:?Change in appetite?denies.?Chills?denies.?Fatigue?denies.?Ophthalmologic:?Comments?all negative.?ENT:?Comments?all negative.?Respiratory:?hemoptysis?denies.?Cough?denies.?Cardiovascular:?Chest pain?denies.?Orthopnea?denies.?Gastrointestinal:?Comments?See HPI for details.?Genitourinary:?Hematuria?denies.?Dysuria?denies.?Musculoskeletal:?Painful joints?denies.?Weakness?denies.?Skin:?Itching?denies.?Rash?denies.?Neurologic:?Headache?denies.?Seizures?denies.?Psychiatric:?Comments?all negative.? * Medical History:? * Surgical History:?Hysterecto my w/removal of 1 ovary Hammer toe * Hospitalization/Major Diagno stic Procedure:?No Hospitalization History. * Family History:?Father: dece ased, 50 /diverticulitis, diagnosed with Colon polyps.?Mother: , diagnosed with HTN (hypertension), Colon polyps, Heart disease.?Siblings: brother, diagnosed with HTN (hypertension).? 1 brother with esophageal cancer. * Social History:?Tobacco Use:?Tobacco Use/Smoking?Are you a: nonsmoker.?Drugs/Alcohol:?Alcohol Screen?Did you have a drink containing alcohol in the past year??Yes,?How often did you have a drink containing alcohol in the past year??2 to 4 times a month (2 points),?How many drinks did you have on a typical day when you were drinking in the past year??1 or 2 drinks (0 point),?How often did you have 6 or more drinks on one occasion in the past year??Never (0 point),?Points?2,?Interpretation?Negative.?Miscellaneous:?Marital status: . Occupation: retired. ???Nonsmoker; no sig alcohol. * Medications:?TakingValsartan 320 MG Tablet TAKE 1 TABLET BY MOUTH DAILY Oral dilTIAZem HCl ER 60 MG Capsule Extended Release 12 Hour Oral Taking Valsartan 320 MG Tablet TAKE 1 TABLET BY MOUTH DAILY Oral Taking dilTIAZem HCl ER 60 MG Capsule Extended Release 12 Hour Oral DiscontinuedhydroCHLOROthiazide 12.5 MG Tablet 1 tablet Orally Once a day, Notes: for osteoporosisVitamin D 1000 UNIT Tablet 1 tablet Orally Once a dayVitamin K2 100 MCG Capsule capsult Orally once a dayProbiotic - Capsule as directed Orally Glucosamine Chondr 1500 Complx - Capsule as directed Orally Motrin IB 200 MG Tablet 1 tablet with food or milk as needed Orally as neededMedication List reviewed and reconciled with the patientDiscontinued hydroCHLOROthiazide 12.5 MG Tablet 1 tablet Orally Once a day, Notes: for osteoporosisDiscontinued Vitamin D 1000 UNIT Tablet 1 tablet Orally Once a dayDiscontinued Vitamin K2 100 MCG Capsule capsult Orally once a dayDiscontinued Probiotic - Capsule as directed Orally Discontinued Glucosamine Chondr 1500 Complx - Capsule as directed Orally Discontinued Motrin IB 200 MG Tablet 1 tablet with food or milk as needed Orally as neededMedication List reviewed and reconciled with the patient * Allergies:?Tetracycline HClL idocaineyes[Allergies Verified] Objective: * Vitals:?Wt: 136 lbs, Ht: 63. 75 in, BMI: 23.53 Index, BP: 111/11 mm Hg, Wt-k.69. * Examination: ???General Examination: ?GENERAL APPEARANCE:?pleasant, well nourished, well developed, in no acute distress.?EYES:?sclera non-icteric.?ORAL CAVITY:?mucosa moist.?NECK/THYROID:?no cervical lymphadenopathy, neck supple.?SKIN:?nonjaundiced, no spider angiomata.?HEART:?S1, S2 normal.?LUNGS:?clear to auscultation bilaterally.?ABDOMEN:?normal bowel sounds, no guarding or rigidity, no guarding or rigidity, no masses palpable, soft, nontender, nondistended.?EXTREMITIES:?no edema.?NEUROLOGIC:?alert and oriented.? Assessment: * Assessment: 1.?Diverticulitis of colon - K57.32 (Primary)? Overall, Maday presently appears quite well. She is certainly not having any ongoing issues with her underlying diverticular disease and previous episodes of diverticulitis. Her abdominal exam is benign. We did review the natural history of diverticulitis and diverticular disease with potential for more significant episodes that could be associated with complications such as intra-abdominal abscess and perforation requiring hospitalization, emergent surgery, and even temporary colostomy. However, at this point she has not had anything close to such a significant episode of diverticulitis. We did review that patients who have had frequent episodes of diverticulitis, or certainly with a complication such as an abscess, are many times considered good candidates for elective surgery to have that segment of colon resected so as to avoid future complications. However, based on Maday's history of what seem to be relatively mild and rapidly resolving episodes of diverticulitis I don't think she requires consideration for surgery at this point. Of note, she would like to avoid surgery if at all possible as well. I advised her to continue her healthy diet and to maintain a good bowel regimen without constipation. We did review that if she develops recurrent symptoms of diverticulitis she could also stay on a liquid diet for a day or 2 to see if things improve on their own prior to using antibiotics. However, I did advise her to certainly start antibiotics if her symptoms do not improve or certainly if they worsen. We also reviewed that she should go to the ER if she develops any significant pain or pain that is associated with vomiting, fevers, or bleeding. We did review that if things remain stable I will plan to see her in one year for a followup colonoscopy given her last exam being in 2020 and her previous history of tubular adenomas. However, I did advise her to definitely call me in the interim if she has any problems or questions I can be of assistance with. Maday was very comfortable with this plan. Thank you again for allowing me to participate in Maday's care. I shall continue to keep you advised of her progress. Plan: * Treatment: * Procedure Codes:?1036F TOBAC CO [id number] BP SCR NOT PRFRM REC REASON NOS * Preventive Medicine:? ??Urinary Incontinence:?Urinary Incontinence?Assessment:?Absent,?Plan of care documented:?No, reason not specified.? ??Screenings:?Fall Risk Screening?Fall Risk Assessment:?No falls in the past year,?Screening:?No falls in the past year,?Assessment:?Not performed, no reason specified,?Plan of Care:?Not documented, no reason specified.? * Follow Up:?prn * * Sign off status: Completed true * Provider:?Dany Willis MD Date:? 025 Generated for Kwaku hernández/Jameson/Marilinitting on:?01/12/2025 01:02 PM EST History and Physical Notes * HPI (History of Present Illness) Category Sub-Category Detail Notes Category Not es incontinence I saw Maday in consultation today in regard to further evaluation of her episodes of diverticulitis and her personal history of tubular adenomas. I last saw Maday in April of 2021, at which time she underwent a followup screening colonoscopy with removal of a small tubular adenoma and an inflammatory polyp. She does have a known history of diverticulosis with previous episodes of diverticulitis over the years. She describes a couple of episodes in 2023, most recently as of the Fall. She has never required hospitalization for these episodes. She has never seen a surgeon in regard to her diverticular disease. The most recent episode this past Fall was treated with a course of antibiotics. She does describe having had a CT scan at the time of that episode at [facility] as an outpatient She has not had any problems since that time. Her bowel movements are quite regular and she denies any signs of bleeding. She describes a healthy diet with fruits and vegetables. She enjoys a good appetite and denies any significant heartburn or dysphagia. She denies any ongoing abdominal pain, signs of jaundice, nor any unintentional weight loss. She denies any known family history of colon cancer. Examination Category Sub-Category Detail Notes Category Not es General Examination GENERAL APPEARANCE: pleasant , well [...]
--- OUTSIDE RECORDS SUMMARY | 2025-01-12 13:02 | XMS_ITS ---
Author Organization Spencer Stanley MD Address [address] [place] [phone] Care Team Providers Care Cap Blocker Name Role Phone Spencer Stanley Primary Care Provider Results Component Value Reference Range Notes Complete Blood Count Auto Di ff Reviewed date:01/05/2025 04:35:02 PM Interpretation: Performing Lab:[facility], [address] [place] [phone] Notes/Report: White Blood Count 5.0 4.8-10.8 X10*3/uL [...] NRBC Abs Auto 0.000 0.0-0.012 X10*3/uL Comprehensive [place]. Panel Fa st Reviewed date:01/05/2025 12:43:17 PM Interpretation: Performing Lab:[facility], [address] [place] [phone] Notes/Report: Sodium 140 135-145 mmol/L Potassium 4.1 [...] Panel Reviewed date:01/05/2025 12:43:41 PM Interpretation: Performing Lab:[facility], [address] [place] [phone] Notes/Report: Bilirubin Direct 0.2 0.0-0.5 mg/dL Lipid Panel Reviewed date:01/05/2025 12:43:26 PM Interpretation: Performing Lab:[facility], [address] [place] [phone] Notes/Report: Triglycerides 59 <150 mg/dL Desirable Triglyceride: [...] Total Reviewed date:01/05/2025 12:43:34 PM Interpretation: Performing Lab:[facility], [address] [place] [phone] Notes/Report: Vitamin D 25-OH Total 62.4 >30 [...] Location Date Provider Diagnosis Spencer Stanley MD [address] [place] [address] [place] [phone] 01/05/2025 Spencer Stanley Essential hypertension I10 ; [...] 01/05/2025 Next Appt Details Provider Name:Spencer correa, 04/13/2025 10:15:00 AM, [address] [place] [address], Suite [facility], [place], [place], [phone], Provider Name:Spencer correa, 01/08/2026 07:30:00 AM, [address] [place] [address], Suite [facility], [place], [place], [phone], Provider Name:Spencer correa, 01/15/2026 09:30:00 AM, [address] [place] [address], [place] [address], [place], [place], [phone], Progress Notes * Maday ARBOLEDA MDOB:[birth year] (74 yo F)Acc No.[id number]:01/05/2025 Progress Note Patient:?Maday ARBOLEDA Provider:?Spencer Stanley MD :1950???Age:74 Y???Sex:Female D ate:01/05/2025 Address:[address] [place], [place] [phone] Subjective: * Chief Complaints: * ???1. FASTING LABS. * Medical History:? Objective: * Vitals:? Assessment: * Assessment: 1.?Essential hypertension - I10 (Primary)???2.?Vitamin D deficiency - E55.9???3.?Elevated LFTs - R79.89??? Plan: * Treatment: 2.?Vitamin D deficiency?LAB: UA ClnCatch+Micro w/rflx Cult ?LAB: Complete Blood Count Auto Diff (Collection Date & Time - 01/05/2025 07:45 AM) ?LAB: Comprehensive [place]. Panel Fast (Collection Date & Time - [...] Time - 01/05/2025 07:45 AM) ?LAB: Comprehensive [place]. Panel Fast (Collection Date & Time - 01/05/2025 07:45 AM) ?LAB: Liver Panel (Collection Date & Time - 01/05/2025 07:45 AM) ?LAB: Lipid Panel (Collection Date & Time - 01/05/2025 07:45 AM) ?LAB: Vitamin D 25-OH Total (Collection Date & Time - 01/05/2025 07:45 AM) * Procedure Codes:?17494 VENIP UNCT, ROUTINE* * * The named appointment provid er may or may not be the originator of this progress note, and it is not deemed complete until electronically signed by the appointment provider. Sign off status: Pending * Provider:?Spencer Stanley MD Date:?0 01/05/2025 Generated for Shimai edgar/Jameson/eTransmitting on:?01/12/2025 01:02 PM EST
--- OUTSIDE RECORDS SUMMARY | 2025-01-12 13:02 | XMS_ITS ---
Author Organization Spencer Stanley MD Address [address] [place] [phone] Care Team Providers Care Primary School Teacher Name Role Phone Spencer Stanley Primary Care Provider [phone] REASON FOR VISIT US abd no done Encounters Encounter Location Date Provider Diagnosis Spencer Stanley MD [address] [facility] [address] [place] [phone] 01/09/2025 Spencer Stanley Plan Of Treatment Next Appt Details Provider Name:Spencer correa, 04/13/2025 10:15:00 AM, [address] [place] [address], [address] [place] [address], [phone], Provider Name:Spencer correa, 01/08/2026 07:30:00 AM, [address] [place] [address], [address], [phone], Provider Name:Spencer Mccullough madeline, 01/15/2026 09:30:00 AM, [address], [address], [place], [phone], Progress Notes * Maday ARBOLEDA MDOB:[birth year] (74 yo F)Acc No.[id number]:01/09/2025 Patient:?Maday ARBOLEDA :1950???Age:74 Y???Sex:Female Address:[address] [place] [address], [place] [address] * * Date:?
--- OUTSIDE RECORDS SUMMARY | 2025-01-12 13:03 | XMS_ITS ---
Author Organization [facility] Address [address] [place] [address] Care Team Providers Care Giving Officer Name Role Phone Spencer Stanley MD Primary Care Provider Sarabjit Caballero [phone] REASON FOR VISIT 38 pedags Encounters Encounter Location Date Provider Diagnosis [facility] [address] [place] [address] 11/17/2024 Sarabjit Manriquez Plan Of Treatment No Information Progress Notes * Maday ARBOLEDA MDOB:[birth year] (74 yo F)Acc No.[id number]:11/17/2024 Patient:?Maday ARBOLEDA :1950???Age:74 Y???Sex:Female Address:[place] [address] * true * Date:? Generated for Shimai edgar/Jameson/eTransmitting on:?01/12/2025 01:03 PM EST
--- OUTSIDE RECORDS SUMMARY | 2025-01-12 13:03 | XMS_ITS | Patient Health Record ---
Author Organization [facility] Address [address] [place] [address] Care Team Providers Care Legal Internship Name Role Phone Spencer Stanley MD Primary Care Provider Dany Regan Unavailable [phone] Allergies Allergen (clinical drug ingredient) Drug/Non Drug Allergy documented on EMR Reaction Allergy Type Onset Date Status tetracycline Tetracycline HCl Unknown Drug Allergy Active lidocaine Lidocaine Unknown Drug Allergy Active Reason For Referral No Information Medications Medication SIG (Take, Route, Fr equency, Duration) Notes Start Date End Date Status dilTIAZem HCl ER 60 MG Oral for 30 Days Active Valsartan 320 MG TAKE 1 TABLET BY VICKY TH DAILY Oral for 90 Days Active Immunizations Vaccine Route Administration Date Status Comme nts Influenza Unknown 07/10/2020 Administered Social History Alcohol Screen Question Answer Notes [...] Negative Section Notes: Nonsmoker; no sig alcohol Nonsmoker; no sig alcohol Nonsmoker; no sig alcohol Nonsmoker; no sig alcohol Nonsmoker; no sig alcohol Problems Problem Type SNOMED Code ICD Code Onset Dates Problem Status W/U Status Risk Notes Problem 6023319 Diverticulitis o f large intestine without perforation or abscess without bleeding (K57.32) Active confirmed Problem 777190737 Encounter for screening for malignant neoplasm of colon (Z12.11) Active confirmed Problem 794392216 Gastroesophageal reflux disease without esophagitis (K21.9) Active confirmed Problem 559102423 Elevated liver enzymes (R74.8) Active confirmed Problem Diverticulitis of colon (498403241) Diverticulitis of colon (K57.32) Active confirmed Problem 769456262 NSAID long-term use (Z79.1) Active confirmed Problem 451089168 Hx of adenomatou s colonic polyps (Z86.010) Active confirmed Vital Signs Blood pressure diastolic 11 mm Hg 12/06/2024 Height 63.75 in 12/06/2024 Blood pressure systolic 111 mm Hg 12/06/2024 Weight 136 lbs 12/06/2024 BMI 23.53 kg/m2 12/06/2024 Encounters Encounter Location Date Provider Diagnosis [facility] [address] [place] [address] 12/06/2024 Dany Willis Diverticulitis of co laya K57.32 Assessments Encounter Date Diagnosis (ICD Code) Assessment Notes Treatment Notes Treatment Clinical Notes Section Notes 12/06/2024 Diverticulitis of colon (ICD-10 - K57.32) Repeat colonoscopy in 04/2026 Go on a liquid diet for 1 or 2 days if the diverticulitis flares up, but definitely go on antibiotics if not getting better Need [facility] CT scan in 2023 Overall, Maday presently [...] advised of her progress. Plan Of Treatment Pending Test Test Name Order Date LIVER PROFILE 11/02/2018 Future Test Test Name Order Date UPPER GI ENDOSCOPY 11/28/2014 COLONOSCOPY 11/28/2014 COLONOSCOPY 03/12/2021 Insurance Providers Payer Name Payer Address Payer Phone Subscriber Number Group Number Insured Name Patient Relationship to Insured Coverage Start Date Coverage End Date MEDICARE OF [place] [address] [place] [address] [id number] MADAY ARBOLEDA Self - patient is the insured MED[employer] ATTN CLAIMS [address] [place] [address] [phone] [id number] [id number] Self - patient is the insured Medical (General) History Medical History History ICD Code 2003 and 05/07/2009 Colonoscopy--negative for polyps Tubular adenoma--removed in 2000 Internal hemorrhoids Diverticulosis-mild divertic ulitis of the distal descending/proximal sigmoid colon described on a CT scan in 12/2012, 11/2016, and 09/2018 GERD--EGD in 2003-small HH--no esophagit is, no Arevalo's Hiatal hernia Denies NE,DM,CVA,Lung disease,renal dise ase Osteoporosis Negative abdominal ultrasound in 01/2015--colonoscopy with sma ll tubular adenomas removed, diverticulosis, and internal hemorrhoids 01/2015-EGD with a small hiat al hernia, but no esophagitis nor Arevalo's esophagus Hx of kidney stones Hypertension Colonoscopy 04/2021 with a single tubular adenoma Diverticulitis 2023--had a CT at [facility] Surgical History Surgery Date(Month/Year) Hammer toe Hysterectomy w/removal of 1 ovary
--- OUTSIDE RECORDS SUMMARY | 2025-01-12 13:03 | XMS_ITS ---
Author Organization [facility] Address [address] [place] [address] Care Team Providers Care Vocational Training Teacher Name Role Phone Spencer Stanley MD Primary Care Provider Sarabjit Caballero [phone] REASON FOR VISIT BUY Pedag [employer] (red) #38 / L 8 Encounters Encounter Location Date Provider Diagnosis [facility] [address] [place] [address] 11/15/2024 Sarabjit Manriquez Plan Of Treatment No Information Progress Notes * Maday ARBOLEDA MDOB:[birth year] (74 yo F)Acc No.[id number]:11/15/2024 Patient:?Maday ARBOLEDA :1950???Age:74 Y???Sex:Female Address:[address] [place] [address] [place] [address] * true * Date:? Generated for Printi ng/Farosag/eTransmitting on:?01/12/2025 01:02 PM EST
--- OUTSIDE RECORDS SUMMARY | 2025-01-12 13:03 | XMS_ITS ---
Author Organization Spencer Stanley MD Address [address] [place] [phone] Care Team Providers Care Furrier Apprentice Name Role Phone Spencer Stanley Primary Care [...] t Reviewed date:01/12/2025 11:52:13 AM Interpretation: Performing Lab:[facility], [address] [place] [phone] Notes/Report: Urine, Clean Catch Color Urine Yellow Appearance Urine Clear PH 6.5 5.0-9.0 Glucose Urine UA Negative Negative mg/dL Urine Blood Negative Negative Specific [place] - Urine 1.010 1.005-1.025 Urine Protein Negative [...] 20 MG TAKE 1 CAPSULE BY MO [facility] EVERY DAY 30 MINUTES BEFORE [...] day Active Finacea 15 % 1 application Record Searcher ally ONCE A DAY IN THE EVENING [...] Risk Notes Problem Macrocytosis - no anemia (799648139) Macrocytosis without anemia (D75.89) Active confirmed Vital Signs Blood pressure systolic 144 mm Hg 01/13/20 25 Blood pressure diastolic 72 mm Hg 025 Height 64 in 01/12/2025 Weight 141 lbs 01/12/2025 BMI 24.2 kg/m2 01/12/2025 Encounters Encounter Location Date Provider Diagnosis Spencer Stanley MD [address] [place] [address] [place] [phone] 01/12/2025 Spencer Stanley Essential hypertension I10 ; [...] 3 Months, Reason: Provider Name:Spencer Mccullough madeline, 04/13/2025 10:15:00 AM, [address], [address], [place], [phone], Provider Name:Spencer Mccullough madeline, 01/08/2026 07:30:00 AM, [address], [address], [place], [phone], Provider Name:Spencer Mccullough madeline, 01/15/2026 09:30:00 AM, [address], [address], [place], [phone], Progress Notes * Maday ARBOLEDA MDOB:[birth year] (74 yo F)Acc No.[id number]:01/12/2025 Patient:?Maday ARBOLEDA M Provider:?Spencer Stanley MD :1950???Age:74 Y???Sex:Female D ate:01/12/2025 Address:[address] [place], [place] [phone] Subjective: * Chief Complaints: * ???1. COMP EXAM still c/o he adache. 2. US ABD has not done yet.. * HPI: ???Depression Screening:?PHQ-9?Little interest or pleasure in doing things?Not at all,?Feeling down, depressed, or hopeless?Not at all,?Trouble falling or staying asleep, or sleeping too much?Not at all,?Feeling tired or having little energy?Not at all,?Poor appetite or overeating?Not at all,?Feeling bad about yourself or that you are a failure, or have let yourself or your family down?Not at all,?Trouble concentrating on things, such as reading the newspaper or watching television?Not at all,?Moving or speaking so slowly that other people could have noticed; or the opposite, being so fidgety or restless that you have been moving around a lot more than usual?Not at all,?Thoughts that you would be better off or of hurting yourself in some way?Not at all,?Total Score?0.?Interpretation and Intervention?Depression Screening Findings?Negative,?Follow-Up for Depression?: review of PHQ-9 found negative result, no follow-up needed.?Communication Needs:?Communication Needs?Does the patient have a hearing impairment?No,?Does the patient have a vision impairment??Yes,?If yes, what is the vision impairment??Glasses,?Does the patient have a cognition impairment??No.?Fall Risk:?History?Have you had any falls with injury in the past year??No,?Have you had two or more falls in the past year??No.?SDOH Questions:?SDOH Questions?In the past year have you been worried about losing housing??No,?In the past year have you or any family members you live with been unable to get any of the following when it was really needed? Check all that apply:?None.?Symptom(s):? patient is a 74 yo female here for visit with review of recent labs and follow up of chronic issues.bp has been good but doesn't lke the meds. tired and headaches but they are getting less and less. fingers feel like she is getting over pins and needles. the pain in rt side became worse the other day and lasted longer. took a? hot shower and went to bathroom/ had colonoscopy in 2020 and had diverticulitis before. * ROS:?General/Constitutional:?Patient denies?fatigue, headache.?Change in appetite?denies.?Chills?denies.?Fever?denies.?Ophthalmologic:?Blurred vision?denies.?Discharge?denies.?Pain?denies.?ENT:?Patient denies?decreased sense of smell, any loss of taste, sore throat.?Decreased hearing?denies.?Sore throat?denies.?Swollen glands?denies.?Endocrine:?Cold intolerance?denies.?Excessive thirst?denies.?Heat intolerance?denies.?Weight loss?denies.?Respiratory:?Cough?denies.?Shortness of breath at rest?denies.?Shortness of breath with exertion?denies.?Wheezing?denies.?Cardiovascular:?Chest pain at rest?denies.?Chest pain with exertion?denies.?Irregular heartbeat?denies.?Shortness of breath?denies.?Gastrointestinal:?Abdominal pain?denies.?Change in bowel habits?denies.?Diarrhea?denies.?Nausea?denies.?Rectal bleeding?denies.?Vomiting?denies .?Genitourinary:?Blood in urine?denies.?Difficulty urinating?denies.?Frequent urination?denies.?Urinary incontinence?Denies.?Musculoskeletal:?Patient denies?muscle aches.?Painful joints?denies.?Weakness?denies.?Peripheral Vascular:?Patient denies?red and blue toes.?Skin:?Dry skin?denies.?Itching?denies.?Denies?Mole(s),? changes in moles, new moles or any lesions of concern.?Denies?Photosensitivity.?Rash?denies.?Neurologic:?Dizziness?denies.?Fainting?denies.?Headache?denies.? * Medical History:?Can tolerat e doxycycline without difficulty, Refuses flu [id number], colonoscopy 04/2009 - adenoma due in 5 years for upper and lower; colonoscopy and endo done 02/01/[address] Willis (repeat 01/2020), Hysterectomy (has one ovary); no paps only pelvic exam, Tinnitus of left ear, Colonoscopy done 04/29, due in 5 years. * Family History:?Father: dece ased 78 yrs, lung cancer.?Mother: 87 yrs, congestive heart failure.?4 brother(s) , 1 sister(s) - healthy. .? father- lung cancer mother- chf, Denies mental health/substance abuse family history, Denies mental health/substance abuse family history, Denies mental health/substance abuse family history, Denies mental health/substance abuse family history. * Social History:?Tobacco Use:?Tobacco Use/Smoking?Patient is a?former smoker,?How long has it been since you last smoked??> 10 years,?Additional Findings: Tobacco Non-User?Former smoker, currently using no form of tobacco.?Drugs/Alcohol:?Alcohol Screen?Did you have a drink containing alcohol in the past year??Yes,?How often did you have a drink containing alcohol in the past year??Monthly or less (1 point),?How many drinks did you have on a typical day when you were drinking in the past year??1 or 2 drinks (0 point),?How often did you have 6 or more drinks on one occasion in the past year??Never (0 point),?Points?1,?Interpretation?Negative.?Miscellaneous:?Caffeine: yes, frequency:, 2-3 cups per day. Children: yes. Exercise: yes, walks for 1.5 miles 4 times aweek yoga. Home smoke detector use: yes. Housing: owning. Marital status: . Pets: none. Travel outside of the [place]: no. * Medications:?Taking dilTIAZe m HCl 60 MG Tablet as directed Orally , Taking Finacea 15 % Gel 1 application Externally ONCE A DAY IN THE EVENING , Taking Dilt-XR 120 MG Capsule Extended Release 24 Hour 1 capsule Orally Once a day , Taking Valsartan 320 MG Tablet 1 [...] h, Epinephrine: Heart Palpitations. Objective: * Vitals:?Ht: 64, Wt: 141, BMI :24.2, BP:144/72, Wt-k.96. * ???Past Orders: ???Lab:Complete Blood Count Auto Diff (Order Date - 01/05/2025) (Collection Date & Time - 01/05/2025 07:45 AM) ? Value Reference Range ?White Blood Count 5.0 4. 8-10.8 - X10*3/uL ?Red Blood Count 4.08 L 4.20 -5.50 - X10*6/uL ?Hemoglobin 13.5 12.0-16.0 - g/dl ?Hematocrit 41.2 37.0-47.0 - % ?Mean Corpuscular Volume 101.0 H 80.0-98.0 - fL ?Mean Corpuscular Hemoglobin 33.1 H 27.0-33.0 - pg ?Mean Corpuscular HGB Conc 32.8 31.0-35.0 - g/dl ?Red Cell Distribution Width 13.1 11.0-16.0 - % ?Platelet Count 272 160-4 00 - X10*3/uL ?Mean Platelet Volume 10.0 9.4-12.3 - fL ?Neutrophils Percent Auto 47.6 45-73 - % ?Imm Gran Pct Auto 0.2 0. 0-0.4 - % ?Lymphocytes Percent Auto 40.8 H 20-40 - % ?Monocytes Percent Auto 8.2 2-11 - % ?Eosinophils Percent Auto 2.4 0-4 - % ?Basophils Percent Auto 0.8 0-2 - % ?NRBC Pct Auto 0.0 0.0-0. 2 - /100WBC ?Neutrophils Absolute Auto 2.4 2.0-8.3 - x10*3/uL ?Imm Gran Abs Auto 0.01 0. 00-0.03 - X10*3/uL ?Lymphocytes Absolute Auto 2.0 1.2-4.9 - X10*3/uL ?Monocytes Absolute Auto 0.4 0.1-1.2 - X10*3/uL ?Eosinophils Absolute Auto 0.1 0.0-0.4 - X10*3/uL ?Basophils Absolute Auto 0.0 0.0-0.2 - X10*3/uL ?NRBC Abs Auto 0.000 0.0-0. 012 - X10*3/uL ???Lab:Vitamin D 25-OH Total (Order Date - 01/05/2025) (Collection Date & Time - 01/05/2025 07:45 AM) ? Value Reference Range ?Vitamin D 25-OH Total 62.4 >30 - ng/mL ???Lab:Lipid Panel (Order [facility] 01/05/2025) (Collection Date & Time - 01/05/2025 07:45 AM) ? Value Reference Range ?Triglycerides 59 <150 - mg/dL ?Cholesterol 251 H <200 - m g/dL ?LDL Cholesterol Calculated 162 H <100 - mg/dL ?HDL Cholesterol 78 >40 - mg/dL ???Lab:Liver Panel (Order [facility] 01/05/2025) (Collection Date & Time - 01/05/2025 07:45 AM) ? Value Reference Range ?Bilirubin Direct 0.2 0.0 -0.5 - mg/dL ???Lab:Comprehensive [place]. P estrellita Fast (Order Date - 01/05/2025) (Collection Date & Time - 01/05/2025 07:45 AM) ? Value Reference Range ?Sodium 140 135-145 - mmo l/L ?Bilirubin Total 0.4 0.0- 1.0 - mg/dL ?Aspartate Amino Transferase 32 H 5-31 - U/L ?Alanine Aminotransferase 31 0-31 - U/L ?Total Protein 7.1 6.5-8. 0 - g/dL ?Albumin Level 4.0 3.5-5. 0 - g/dL ?Alkaline Phosphatase 106 39-117 - U/L ?Potassium 4.1 3.3-5.1 - mmol/L ?Chloride 109 H 96-108 - mm ol/L ?Carbon Dioxide 25 22-29 - mmol/L ?Anion Gap 10 L 12-20 - ?Blood Urea Nitrogen 14 9-16 - mg/dL ?Creatinine 0.68 0.5-1.4 - mg/dL ?Estimated Glomerular Filt Rate > 60 - ?Glucose Fasting 81 60-9 9 - mg/dL ?Calcium 9.4 8.4-10.2 - m g/dL * Examination: ???General Examination: ?GENERAL APPEARANCE:?well developed, well nourished, in no acute distress.?HEAD:?normocephalic, atraumatic.?EYES:?pupils equal, round, reactive to light and accommodation, sclera non-icteric.?EARS:?normal.?ORAL CAVITY:?mucosa moist.?THROAT:?clear.?NECK/THYROID:?neck supple, full range of motion, no cervical lymphadenopathy, no bruits.?SKIN:?warm and dry, no suspicious lesions.?HEART:?regular rate and rhythm, S1, S2 normal, no murmurs.?LUNGS:?clear to auscultation bilaterally.?BREASTS:?No mass, no lump.?ABDOMEN:?soft, nontender, nondistended, bowel sounds present, normal, no organomegaly , no masses palpable.?RECTAL EXAM:?no masses palpable, stool guaiac negative.?FEMALE GENITOURINARY:?done by dog obedience instructor.?EXTREMITIES:?no clubbing, cyanosis, or edema.?NEUROLOGIC:?nonfocal, motor strength normal upper and lower extremities, sensory exam intact.? Assessment: * Assessment: 1.?Essential hypertension - I10 (Primary)???2.?Macrocytosis without anemia - D75.89???3.?Elevated LFTs - R79.89???4.?Vitamin D deficiency - E55.9???5.?Colon cancer screening - Z12.11???6.?Depression screening - Z13.31??? Plan: * Treatment: 2.?Macrocytosis without anem ia? Notes: will continue to monitor?? 3.?Elevated LFTs? Notes: stable, will continue to monitor?? 4.?Vitamin D deficiency? Notes: stabe, will continue current regiment and will continue to monitor?? 5.?Colon cancer screening?LAB: Occult Blood, Stool, Guaiac (Collection Date & Time - 01/12/2025)?Negative ? Value Reference Range ?Occult Blood, Stool, Guaiac Neg Notes: guaiac negative??6.?Depression screening? Notes: negtive screen?? * Procedure Codes:?75521 TEST FOR BLOOD, FECES * Follow Up:?3 Months * * The named appointment provid er may or may not be the originator of this progress note, and it is not deemed complete until electronically signed by the appointment provider. Sign off status: Pending * Provider:?Spencer Stanley MD Date:?0 01/12/2025 Generated for Kwaku hernández/Jameson/Marilinitting on:?01/12/2025 01:03 PM EST History and Physical Notes * [...] patient have a vision impairmen t?: Yes ?If yes, what is the vision impairment?: Glasses Does the patient have a cognition impair ment?: No Examination Category Sub-Category Detail Notes Category Not es General Examination GENERAL APPEARANCE: well dev eloped, well nourished, in no acute distress HEAD: normocephalic, atrau matic EYES: pupils equal, round, reactive to light and accommodation, sclera non- icteric EARS: normal THROAT: clear NECK/THYROID: neck supple, [...] stool guaiac negative FEMALE GENITOURINARY: done by dog obedience instructor ORAL CAVITY: mucosa moist
--- OUTSIDE RECORDS SUMMARY | 2025-01-12 13:03 | XMS_ITS ---
Author Organization [facility] Address [address] [place] [address] Care Team Providers Care Plaque Maker Name Role Phone Spencer Stanley MD Primary Care Provider Sarabjit Caballero Unavailable [phone] Allergies Allergen (clinical drug ingredient) Drug/Non Drug [...] W/U Status Risk Notes Problem Plantar wart (60448613) Plantar wart (B07.0) Active confirmed Problem 186689419 Onychomycosis (B35.1) Active confirmed Vital Signs Height 5 ft 4 in in 11/15/2024 Weight 142 lbs 11/15/2024 BMI 24.37 kg/m2 11/15/2024 Blood pressure systolic 120 mm Hg 11/15/19 25 Blood pressure diastolic 80 mm Hg 025 Procedures Procedure Date Ordered Date Performed Result Body Sit e 00732-YZIQOMR NAIL, 1-11/15/2024 N/A 97325-Cpeh Destruction, 11-2211/15/2024 N/A Encounters Encounter Location Date Provider Diagnosis [facility] [address] [address] 11/15/2024 Sarabjit Manriquez Pain in left toe(s) [...] Treatment Pending Test Test Name Order Date 75953-YCJDVTC NAIL, 1-5 11/15/2024 85867-Eywn Destruction, 1-11/15/2024 Next Appt Details Follow Up: prn, Reason: Procedure Notes * Category Sub-Category Detail Notes Wart Treatment Procedure Verruca, as desc ribed in exam, were debrided to pin-point bleeding margins with sterile 15 surgical blade, silver nitrate chemocautery applied, recomm. immune-boosting meds such as zinc, recomm. follow up with topical chemosurgical agents, Pt defers any other forms of tx - 38921 Debride Nails 1-5 Procedure: Due to the [...] necessary to maintain effective symptomatic relief - 08528 Progress Notes * Maday ARBOLEDA MDOB:[birth year] (74 yo F)Acc No.[id number]:11/15/2024 Progress Note Patient:?Maday ARBOLEDA Provider:?Sarabjit Manriquez DPM :1950???Age:74 Y???Sex:Female D ate:11/15/2024 Address:[address] [place] [address], [place], [id number] Pcp:Spencer Stanley MD Subjective: * Chief Complaints: [...] gardening/yard work, yoga. ?Marital status: . 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 * Medications:?TakingdilTIAZem HCl ER , Notes to [...] Uncomplicated (3)??? Plan: * Treatment: 2.?Plantar wart?Procedure: 16403-Xwoj Destruction, 1-14 * Procedures:?Debride Nails 1-5:?Procedure:?Due to [...] necessary to maintain effective symptomatic relief - 74158.?Wart Treatment:?Procedure?Verruca, as described in exam, were debrided to pin-point bleeding margins with sterile 15 surgical blade, silver nitrate chemocautery applied, recomm. immune-boosting meds such as zinc, recomm. follow up with topical chemosurgical agents, Pt defers any other forms of tx - 87859.? * Procedure Codes:?07725 DEBRI DE NAIL, 1-5, Modifiers: XS 97366 Wart Destruction, 1-14, Modifiers: XS 1036F TOBACCO [...] time worn until they are using them dough molder and in all activities. They were asked [...] Manriquez DPM Date:?2024 Generated for Kwaku hernández/Jameson/Yousuf on:?01/12/2025 01:03 PM EST History and Physical [...]
--- OUTSIDE RECORDS SUMMARY | 2025-01-12 13:03 | XMS_ITS | Patient Health Record ---
Author Organization [facility] Address [address] [facility] [place] [address] Care Team Providers Care Integration Software Engineer Name Role Phone Spencer Stanley MD Primary Care Provider Sarabjit Caballero Unavailable [phone] Allergies Allergen (clinical drug ingredient) Drug/Non Drug [...] W/U Status Risk Notes Problem Plantar wart (77979093) Plantar wart (B07.0) Active confirmed Problem 707282542 Onychomycosis (B35.1) Active confirmed Vital Signs Blood pressure diastolic 80 mm Hg 11/15/2024 Height 5 ft 4 in in 11/15/2024 Blood pressure systolic 120 mm Hg 11/15/2024 Weight 142 lbs 11/15/2024 BMI 24.37 kg/m2 11/15/2024 Procedures Procedure Date Ordered Date Performed Result Body Sit e 87027-TQZFMSU NAIL, 1-11/15/2024 N/A 02515-Cpat Destruction, -11/15/2024 N/A Encounters Encounter Location Date Provider Diagnosis [facility] [address] 11/15/2024 Sarabjit Manriquez Pain in left toe(s) M79.675 ; Onychomycosis B35.1 ; Right foot pain M79.671 ; Plantar wart B07.0 ; Pain in right ankle and joints of right foot M25.571 ; Bursitis of intermetatarsal bursa of right foot M77.51 and Metatarsalgia, right foot M77.41 [facility] [address] 11/15/2024 [facility] [address] 11/17/2024 Sarabjit Manriquez Assessments Encounter Date Diagnosis [...] X ray : Foot, right 3V 09/25/2022 32540-OJHFJRC NAIL, 1-5 11/15/2024 61664-Vruu Destruction, 1-14 11/15/2024 27272-Pymtebnx Plate 12/08/2017 67705- Debride <25 sq cm 12/25/2017 Insurance Providers Payer Name Payer Address Payer Phone Subscriber Number Group Number Insured Name Patient Relationship to Insured Coverage Start Date Coverage End Date Medicare [employer] [address] [place] [address] [id number] Maday Draper Self - patient is the insured [employer] [facility] [address] [place] [address] [phone] [id number] Maday Draper Self - patient is the insured Medical (General) History Medical History History ICD Code Diverticulosis Measles Mumps Chicken pox Osteoporosis Reflux ( GERD) Hypertension Elevated LFTs Vitamin D deficiency Hypercalciuria Tubular adenoma of colon Cataracts Surgical History Surgery Date(Month/Year) hysterectomy 1986 hammer toe 1998
== END 2025-01-12 10:48 | disposition home or self-care (01) ==
LOC: HO.LNP 10:47
PROVIDERS: Visit Provider Internal Medicine
DX: I10 Essential (primary) hypertension (principal)
CPT/HCPCS: 81001

== ENCOUNTER 2025-01-13 11:46 | Outpatient (AMB) | payer MEDICARE, SELFPAY ==
--- NOTE | 2025-01-13 12:18 | HO.NEPHOV ---
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 She is known to hypertension for a while and has been on hydrochlorothiazide bit she had been taking regularly without much side effects. She also is known to renal calculi. Her blood pressure started getting fluctuant, more so after COVID infection. She had to come off hydrochlorothiazide given hyponatremia, which has normalized now. Subsequently she was started on valsartan and the dose of which was maximized now. She had been tolerating that without much side effects. Her blood pressure control continued to be suboptimal with intermittent resting tachycardia and chest pressure symptoms without any reason. She was started on metoprolol of the time but she developed emotional lability as well as tiredness and it was discontinued. She has been started on 2.5 mg amlodipine at that time. She has been having some headache/ foggy head which she was attributing to amlodipine. She is not known to have any underlying thyroid disorders. She has no history of renal failure, liver disease or heart failure. She has had hyponatremia remotely. She denied any diagnosis of depression but gets anxious at times. She is not known to have any hyperkalemia, edema. She denies drinking excessive fluid or alcohol. She has no history of any malignancy. Diltiazem was eventually added to the regimen but she was not tolerating the higher dose. Dose was reduced recently and she felt better but still complaining about ringing in the ear and variety of unrelated symptoms. She has seen cardiology and is due to have work up. She thinks it could be the medication compounding which could be causing her symptoms which is unexplained otherwise. She was accompanied by her during this visit COUNT INCLUDES THE [facility] Medical History Hypertension History of kidney stones Hiatal hernia Osteoporosis GERD (gastroesophageal reflux disease) Surgical History History of blepharoplasty History of hammer toe correction Hx of hysterectomy History of esophagogastroduodenoscopy (EGD) Hx of colonoscopy Family History Mother Hypertension Kidney stone Father Cancer Social History Do you presently have visiting nurse or other home services: No Alcohol intake: never Patient Tobacco Use Status: Former Tobacco user Review of Systems Const All systems reviewed & are unremarkable except as noted in HPI and below Physical Exam Vital Signs: Last Vital Signs Pulse 79 01/13/25 12:20 BP 160/90 H 01/13/25 12:20 Pulse Ox 99 01/13/25 12:20 Oxygen Delivery Method Room Air 01/13/25 12:20 BMI result Body Mass Index 25.0 Const General: comfortable and no acute distress Orientation/consciousness: patient oriented x3 HEENT Head: Yes normocephalic Mouth: Normal oral and palatal mucosa present Eyes EOM: EOMs intact bilaterally Neck Neck: Yes supple Resp Auscultation: clear to auscultation bilaterally Cardio Jugular venous distension: no JVD Rate: regular rate GI Palpation (GI): Soft to palpation Auscultation: normal bowel sounds Skin General skin exam: no rashes or lesions noted Neuro General: patient oriented x3 and moves all extremities Extrem General: Yes no pedal edema Results Reviewed Nephrology Results: Hgb 13.5 g/dl (12.0-16.0) 01/05/25 WBC 5.0 X10*3/uL (4.8-10.8) 01/05/25 Plt Count 272 X10*3/uL (160-400) 01/05/25 Sodium 140 mmol/L (135-145) 01/05/25 Potassium 4.1 mmol/L (3.3-5.1) 01/05/25 Chloride 109 mmol/L (96-108) H 01/05/25 Carbon Dioxide 25 mmol/L (22-29) 01/05/25 BUN 14 mg/dL (9-16) 01/05/25 Creatinine 0.68 mg/dL (0.5-1.4) 01/05/25 Calcium 9.4 mg/dL (8.4-10.2) 01/05/25 Urine Protein Negative mg/dL (Neg-Trace) 01/12/25 Assessment & Plan Assessment & Plan (1) Hypertension: Code(s): I10 - Essential (primary) hypertension Category: Medical Qualifiers: Hypertension type: primary hypertension Qualified Code(s): I10 - Essential (primary) hypertension (2) Hyponatremia: Code(s): E87.1 - Hypo-osmolality and hyponatremia Category: Medical Plan Maday has longstanding hypertension which is better controlled now. She did not tolerate metoprolol due to development of emotional lability. She is currently on valsartan 320 mg daily. I asked her to keep off hydrochlorothiazide for now. She has history of renal calculi. I tooher off fluid restriction . She has strong family history hypertension. She denied any other vascular risk factors or active vascular disease. She may need Doppler of her renal arteries with time, if needed. She can continue current dose of Diltiazem( 180 mg). She should continue low sodium in the diet. If her BP starts going down, we can cut back on her medications. She may need MRI brain/ Neurology & ENT consults. Answered all questions. Follow-up appointment given Orders: Orders Creatinine 3 Months E87.1 - Hypo-osmolality and hyponatremia, I10 - Essential (primary) hypertension Blood Urea Nitrogen 3 Months E87.1 - Hypo-osmolality and hyponatremia, I10 - Essential (primary) hypertension Electrolytes 3 Months E87.1 - Hypo-osmolality and hyponatremia, I10 - Essential (primary) hypertension Medications: New diltiazem HCl ER 60 mg PO DAILY 90 days 90 caps 3RF Coding Level of Care Code Est Pt Level 4 (05031) Diagnoses Primary hypertension I10 Hypertension type: primary hypertension Hyponatremia E87.1
[2025-01-13 12:20] VITALS: BP 160/90; PULSE 79; O2SAT 99; BMI 25.0
--- OUTSIDE RECORDS SUMMARY | 2025-01-13 13:40 | XMS_ITS ---
Author Organization Spencer Stanley MD Address [address] [place] [phone] Care Team Providers Care Geological Technician Name Role Phone Spencer Stanley Primary Care Provider Results Component Value Reference Range Notes Complete Blood Count Auto Di ff Reviewed date:01/05/2025 04:35:02 PM Interpretation: Performing Lab:[facility], [address] [place] [phone] Notes/Report: White Blood Count 5.0 4.8-10.8 X10*3/uL [...] NRBC Abs Auto 0.000 0.0-0.012 X10*3/uL Comprehensive [place]. Panel Fa st Reviewed date:01/05/2025 12:43:17 PM Interpretation: Performing Lab:[facility], [address] [place] [phone] Notes/Report: Sodium 140 135-145 mmol/L Potassium 4.1 [...] Panel Reviewed date:01/05/2025 12:43:41 PM Interpretation: Performing Lab:[facility], [address] [place] [phone] Notes/Report: Bilirubin Direct 0.2 0.0-0.5 mg/dL Lipid Panel Reviewed date:01/05/2025 12:43:26 PM Interpretation: Performing Lab:[facility], [address] [place] [phone] Notes/Report: Triglycerides 59 <150 mg/dL Desirable Triglyceride: [...] Total Reviewed date:01/05/2025 12:43:34 PM Interpretation: Performing Lab:[facility], [address] [place] [phone] Notes/Report: Vitamin D 25-OH Total 62.4 >30 [...] Location Date Provider Diagnosis Spencer Stanley MD [address] [place] [address] [place] [phone] 01/05/2025 Spencer Stanley Essential hypertension I10 ; [...] Details Provider Name:Spencer correa, 04/13/2025 10:15:00 AM, [address] [place] [address], Suite [facility], [place], [place], [phone], Provider Name:pSencer correa, 01/08/2026 07:30:00 AM, [address] [place] [address], Suite [facility], [place], [place], [phone], Provider Name:Spencer correa, 01/15/2026 09:30:00 AM, [address] [place] [address], [place] [address], [place], [place], [phone], Progress Notes * Maday ARBOLEDA MDOB:[birth year] (74 yo F)Acc No.[id number]:01/05/2025 Progress Note Patient:?Maday ARBOLEDA Provider:?Spencer Stanley MD :1950???Age:74 Y???Sex:Female D ate:01/05/2025 Address:[address] [place], [place] [phone] Subjective: * Chief Complaints: * ???1. FASTING LABS. * Medical History:? Objective: * Vitals:? Assessment: * Assessment: 1.?Essential hypertension - I10 (Primary)???2.?Vitamin D deficiency - E55.9???3.?Elevated LFTs - R79.89??? Plan: * Treatment: 2.?Vitamin D deficiency?LAB: UA ClnCatch+Micro w/rflx Cult ?LAB: Complete Blood Count Auto Diff (Collection Date & Time - 01/05/2025 07:45 AM) ?LAB: Comprehensive [place]. Panel Fast (Collection Date & Time - [...] Time - 01/05/2025 07:45 AM) ?LAB: Comprehensive [place]. Panel Fast (Collection Date & Time - 01/05/2025 07:45 AM) ?LAB: Liver Panel (Collection Date & Time - 01/05/2025 07:45 AM) ?LAB: Lipid Panel (Collection Date & Time - 01/05/2025 07:45 AM) ?LAB: Vitamin D 25-OH Total (Collection Date & Time - 01/05/2025 07:45 AM) * Procedure Codes:?16273 VENIP UNCT, ROUTINE* * * The named appointment provid er may or may not be the originator of this progress note, and it is not deemed complete until electronically signed by the appointment provider. Sign off status: Pending * Provider:?Spencer Stanley MD Date:?0 01/05/2025 Generated for Shimai edgar/Jameson/eTransmitting on:?01/13/2025 01:40 PM EST
--- OUTSIDE RECORDS SUMMARY | 2025-01-13 13:41 | XMS_ITS ---
Author Organization [facility] Address [address] [place] [address] Care Team Providers Care Campground Cleaning Attendant Name Role Phone Spencer Stanley MD Primary Care Provider Dany Regan [phone] Allergies Allergen (clinical drug ingredient) Drug/Non Drug [...] Status Risk Notes Problem Diverticulitis of colon (725554718) Diverticulitis of colon (K57.32) Active confirmed Vital Signs Blood pressure systolic 111 mm Hg 12/06/19 25 Blood pressure diastolic 11 mm Hg 025 Height 63.75 in 12/06/2024 Weight 136 lbs 12/06/2024 BMI 23.53 kg/m2 12/06/2024 Encounters Encounter Location Date Provider Diagnosis [facility] [address] [place] [address] 12/06/2024 Dany Willis Diverticulitis of co laya K57.32 Assessments Encounter Date Diagnosis (ICD Code) Assessment Notes Treatment Notes Treatment Clinical Notes Section Notes 12/06/2024 Diverticulitis of colon (ICD-10 - K57.32) Repeat colonoscopy in 04/2026 Go on a liquid diet for 1 or 2 days if the diverticulitis flares up, but definitely go on antibiotics if not getting better Need [facility] CT scan in 2023 Overall, Maday [...] on antibiotics if not getting better Need [facility] CT scan in 2023 Next Appt Details Follow Up: prn, Reason: Progress Notes * MADAY ARBOLEDADOB:1949 (74 yo F)Acc No.[id number]:12/06/2024 Progress Notes Patient:?MADAY ARBOLEDA Provider:?Dany Willis MD :1950???Age:74 Y???Sex:Female D ate:12/06/2024 Address:[address] [place], [place] [address] [phone] Pcp:Spencer Stanley MD Subjective: * Chief Complaints: [...] at the time of that episode at [facility] as an outpatient She has not had [...] * Treatment: * Procedure Codes:?1036F TOBAC CO [id number] BP SCR NOT PRFRM REC REASON NOS [...] MD Date:? 025 Generated for Kwaku hernández/Jameson/Marilinitting on:?01/13/2025 01:40 PM EST History and Physical Notes * [...] at the time of that episode at [facility] as an outpatient She has not had [...]
--- OUTSIDE RECORDS SUMMARY | 2025-01-13 13:41 | XMS_ITS | Patient Health Record ---
[facility] Address [address] [facility] [place] [address] Care Team Providers Care Direct Service Professional Name Role Phone Spencer Stanley MD Primary Care Provider Sarabjit Caballero Unavailable [phone] Allergies Allergen (clinical drug ingredient) Drug/Non Drug [...] W/U Status Risk Notes Problem Plantar wart (70276922) Plantar wart (B07.0) Active confirmed Problem 287317179 Onychomycosis (B35.1) Active confirmed Vital Signs Blood pressure diastolic 80 mm Hg 11/15/2024 Height 5 ft 4 in in 11/15/2024 Blood pressure systolic 120 mm Hg 11/15/2024 Weight 142 lbs 11/15/2024 BMI 24.37 kg/m2 11/15/2024 Procedures Procedure Date Ordered Date Performed Result Body Sit e 03220-QBADGBK NAIL, 1-11/15/2024 N/A 49324-Jqun Destruction, -11/15/2024 N/A Encounters Encounter Location Date Provider Diagnosis [facility] [address] 11/15/2024 Sarabjit Manriquez Pain in left toe(s) M79.675 ; Onychomycosis B35.1 ; Right foot pain M79.671 ; Plantar wart B07.0 ; Pain in right ankle and joints of right foot M25.571 ; Bursitis of intermetatarsal bursa of right foot M77.51 and Metatarsalgia, right foot M77.[address] [facility] [address] 11/15/2024 Sarabjit Manriquez [facility] [address] 11/17/2024 Sarabjit Manriquez Assessments Encounter Date Diagnosis [...] X ray : Foot, right 3V 09/25/2022 64547-KHJZHQA NAIL, 1-5 11/15/2024 42249-Wkgh Destruction, 1-14 11/15/2024 32006-Ilujsuwb Plate 12/08/2017 11917- Debride <25 sq cm 12/25/2017 Insurance Providers Payer Name Payer Address Payer Phone Subscriber Number Group Number Insured Name Patient Relationship to Insured Coverage Start Date Coverage End Date Medicare National [employer] [address] [place] [address] [id number] Maday Draper Self - patient is the insured [facility] [address] [place] [address] [id number] Maday Draper Self - patient is the insured Medical (General) History Medical History History ICD Code Diverticulosis Measles Mumps Chicken pox Osteoporosis Reflux ( GERD) Hypertension Elevated LFTs Vitamin D deficiency Hypercalciuria Tubular adenoma of colon Cataracts Surgical History Surgery Date(Month/Year) hysterectomy 1986 hammer toe 1998
--- OUTSIDE RECORDS SUMMARY | 2025-01-13 13:41 | XMS_ITS ---
Author Organization [facility] Address [address] [facility] [address] Care Team Providers Care Parking Regulation Enforcement Officer Name Role Phone Spencer Stanley MD Primary Care Provider Sarabjit Caballero [phone] REASON FOR VISIT BUY Pedag [employer] (red) #38 / L 8 Encounters Encounter Location Date Provider Diagnosis [facility] [address] [place] [address] 11/15/2024 Sarabjit Manriquez Plan Of Treatment No Information Progress Notes * Maday ARBOLEDA MDOB:[birth year] (74 yo F)Acc No.[id number]:11/15/2024 Patient:?Maday ARBOLEDA :1950???Age:74 Y???Sex:Female Address:[address] [place] [address] [place] [address] * true * Date:? Generated for Printi ng/Farosag/eTransmitting on:?01/13/2025 01:41 PM EST
--- OUTSIDE RECORDS SUMMARY | 2025-01-13 13:41 | XMS_ITS | Patient Health Record ---
Author Organization [facility] Address [address] [place] [address] Care Team Providers Care Seo Engineer Name Role Phone Spencer Stanley MD Primary Care Provider Dany Regan Unavailable [phone] Allergies Allergen (clinical drug ingredient) Drug/Non Drug [...] Problem Status W/U Status Risk Notes Problem 9340186 Diverticulitis o f large intestine without perforation or abscess without bleeding (K57.32) Active confirmed Problem 279955909 Encounter for screening for malignant neoplasm of colon (Z12.11) Active confirmed Problem 287870058 Gastroesophageal reflux disease without esophagitis (K21.9) Active confirmed Problem 693239234 Elevated liver enzymes (R74.8) Active confirmed Problem Diverticulitis of colon (774841035) Diverticulitis of colon (K57.32) Active confirmed Problem 466811617 NSAID long-term use (Z79.1) Active confirmed Problem 843484813 Hx of adenomatou s colonic polyps (Z86.010) Active confirmed Vital Signs Blood pressure diastolic 11 mm Hg 12/06/2024 Height 63.75 in 12/06/2024 Blood pressure systolic 111 mm Hg 12/06/2024 Weight 136 lbs 12/06/2024 BMI 23.53 kg/m2 12/06/2024 Encounters Encounter Location Date Provider Diagnosis [facility] [address] [place] [address] 12/06/2024 Dany Willis Diverticulitis of co laya K57.32 Assessments Encounter Date Diagnosis (ICD Code) Assessment Notes Treatment Notes Treatment Clinical Notes Section Notes 12/06/2024 Diverticulitis of colon (ICD-10 - K57.32) Repeat colonoscopy in 04/2026 Go on a liquid diet for 1 or 2 days if the diverticulitis flares up, but definitely go on antibiotics if not getting better Need [facility] CT scan in 2023 Overall, Maday [...] Date MEDICARE OF [place] [address] [place] [address] [id number] MADAY ARBOLEDA Self - patient is the insured [employer] ATT[employer] CLAIMS [address] [place] [address] [id number] ROBLESMADAY Self - patient is the insured Medical (General) History Medical History History ICD Code 2003 and 05/07/2009 Colonoscopy--negative for polyps Tubular adenoma--removed in 2000 Internal hemorrhoids Diverticulosis-mild divertic ulitis of the distal descending/proximal sigmoid colon described on a CT scan in 12/2012, 11/2016, and 09/2018 GERD--EGD in 2003-small HH--no esophagit is, no Arevalo's Hiatal hernia Denies [place],DM,CVA,Lung disease,renal dise ase Osteoporosis Negative abdominal ultrasound in 01/2015--colonoscopy with sma ll tubular adenomas removed, diverticulosis, and internal hemorrhoids 01/2015-EGD with a small hiat al hernia, but no esophagitis nor Arevalo's esophagus Hx of kidney stones Hypertension Colonoscopy 04/2021 with a single tubular adenoma Diverticulitis 2023--had a CT at [facility] Surgical History Surgery Date(Month/Year) Hammer toe Hysterectomy w/removal of 1 ovary
--- OUTSIDE RECORDS SUMMARY | 2025-01-13 13:41 | XMS_ITS ---
Author Organization Spencer Stanley MD Address [address] [place] [phone] Care Team Providers Care Imaging Analyst Name Role Phone Spencer Stanley Primary Care Provider REASON FOR VISIT US abd no done Encounters Encounter Location Date Provider Diagnosis Spencer Stanley MD [address] [facility] [address] [place] [phone] 01/09/2025 Spencer Stanley Plan Of Treatment Next Appt Details Provider Name:Spencer correa, 04/13/2025 10:15:00 AM, [address] [place] [address], [address] [place] [address], [phone], Provider Name:Spencer correa, 01/08/2026 07:30:00 AM, [address] [place] [address], [address], [phone], Provider Name:Spencer Mccullough madeline, 01/15/2026 09:30:00 AM, [address], [address], [place], [phone], Progress Notes * Maday ARBOLEDA MDOB:[birth year] (74 yo F)Acc No.[id number]:01/09/2025 Patient:?Maday ARBOLEDA :1950???Age:74 Y???Sex:Female Address:[address] [place] [address], [place] [address] * * Date:?
--- OUTSIDE RECORDS SUMMARY | 2025-01-13 13:42 | XMS_ITS ---
Author Organization Spencer Stanley MD Address [address] [place] [phone] Care Team Providers Care Network Relations Consultant Name Role Phone Spencer Stanley Primary Care Provider [phone] Allergies Allergen (clinical drug ingredient) Drug/Non Drug [...] t Reviewed date:01/12/2025 11:52:13 AM Interpretation: Performing Lab:[facility], [address] [place] [id number] Notes/Report: Urine, Clean Catch Color Urine Yellow Appearance Urine Clear PH 6.5 5.0-9.0 Glucose Urine UA Negative Negative mg/dL Urine Blood Negative Negative Specific [place] - Urine 1.010 1.005-1.025 Urine Protein Negative [...] 20 MG TAKE 1 CAPSULE BY [facility] EVERY DAY 30 MINUTES BEFORE BREAKFAST [...] day Active Finacea 15 % 1 application Vaccine Specialist ally ONCE A DAY IN THE [...] Risk Notes Problem Macrocytosis - no anemia (267337626) Macrocytosis without anemia (D75.89) Active confirmed Vital Signs Blood pressure systolic 144 mm Hg 01/13/20 25 Blood pressure diastolic 72 mm Hg 025 Height 64 in 01/12/2025 Weight 141 lbs 01/12/2025 BMI 24.2 kg/m2 01/12/2025 Encounters Encounter Location Date Provider Diagnosis Spencer Stanley MD [address] [place] [address] [place] [phone] 01/12/2025 Spencer Stanley Essential hypertension I10 ; [...] [address], [address], [place], [phone], Provider Name:Spencer Mccullough madeline, 01/08/2026 07:30:00 AM, [address], [address], [place], [phone], Provider Name:Spencer Mccullough madeline, 01/15/2026 09:30:00 AM, [address], [address], [place], [phone], Progress Notes * Maday ARBOLEDA MDOB:[birth year] (74 yo F)Acc No.[id number]:01/12/2025 Patient:?Maday ARBOLEDA M Provider:?Spencer Stanley MD :1950???Age:74 Y???Sex:Female D ate:01/12/2025 Address:[address] [place], [place] [phone] Subjective: * Chief Complaints: * ???1. COMP [...] tolerat e doxycycline without difficulty, Refuses flu cnss01-26-82, colonoscopy 04/2009 - adenoma due in 5 [...] 62.4 >30 - ng/mL ???Lab:Lipid Panel (Order [facility] 01/05/2025) (Collection Date & Time - 01/05/2025 07:45 AM) ? Value Reference Range ?Triglycerides 59 <150 - mg/dL ?Cholesterol 251 H <200 - m g/dL ?LDL Cholesterol Calculated 162 H <100 - mg/dL ?HDL Cholesterol 78 >40 - mg/dL ???Lab:Liver Panel (Order [facility] 01/05/2025) (Collection Date & Time - 01/05/2025 07:45 AM) ? Value Reference Range ?Bilirubin Direct 0.2 0.0 -0.5 - mg/dL ???Lab:Comprehensive [place]. P estrellita Fast (Order Date - 01/05/2025) [...] masses palpable, stool guaiac negative.?FEMALE GENITOURINARY:?done by obstetrics gyn.?EXTREMITIES:?no clubbing, cyanosis, or edema.?NEUROLOGIC:?nonfocal, motor strength normal [...] negative??6.?Depression screening? Notes: negtive screen?? * Procedure Codes:?75455 TEST FOR BLOOD, FECES * Follow Up:?3 Months * * The named appointment provid er may or may not be the originator of this progress note, and it is not deemed complete until electronically signed by the appointment provider. Sign off status: Pending * Provider:?Spencer Stanley MD Date:?0 01/12/2025 Generated for Kwaku hernández/Jameson/Marilinitting on:?01/13/2025 01:41 PM EST History and Physical Notes * [...] stool guaiac negative FEMALE GENITOURINARY: done by obstetrics gyn ORAL CAVITY: mucosa moist
--- OUTSIDE RECORDS SUMMARY | 2025-01-13 13:42 | XMS_ITS ---
Author Organization [facility] Address [address] [facility] [place] [address] Care Team Providers Care Rn Critical Care Name Role Phone Spencer Stanley MD Primary Care Provider Sarabjit Caballero Unavailable [phone] Allergies Allergen (clinical drug ingredient) Drug/Non Drug [...] W/U Status Risk Notes Problem Plantar wart (41733365) Plantar wart (B07.0) Active confirmed Problem 343492356 Onychomycosis (B35.1) Active confirmed Vital Signs Height 5 ft 4 in in 11/15/2024 Weight 142 lbs 11/15/2024 BMI 24.37 kg/m2 11/15/2024 Blood pressure systolic 120 mm Hg 11/15/19 25 Blood pressure diastolic 80 mm Hg 025 Procedures Procedure Date Ordered Date Performed Result Body Sit e 78014-CEZNBTL NAIL, 1-11/15/2024 N/A 53352-Lrdm Destruction, 11-2211/15/2024 N/A Encounters Encounter Location Date Provider Diagnosis [facility] [address] [address] 11/15/2024 Sarabjit Manriquez Pain in left toe(s) [...] Treatment Pending Test Test Name Order Date 13371-UAEZAXS NAIL, 1-5 11/15/2024 10153-Ichh Destruction, 1-11/15/2024 Next Appt Details Follow Up: prn, Reason: Procedure Notes * Category Sub-Category Detail Notes Wart Treatment Procedure Verruca, as desc ribed in exam, were debrided to pin-point bleeding margins with sterile 15 surgical blade, silver nitrate chemocautery applied, recomm. immune-boosting meds such as zinc, recomm. follow up with topical chemosurgical agents, Pt defers any other forms of tx - 43009 Debride Nails 1-5 Procedure: Due to the [...] necessary to maintain effective symptomatic relief - 06198 Progress Notes * Maday ARBOLEDA MDOB:[birth year] (74 yo F)Acc No.[id number]:11/15/2024 Progress Note Patient:?Maday ARBOLEDA Provider:?Sarabjit Manriquez DPM :1950???Age:74 Y???Sex:Female D ate:11/15/2024 Address:[address] [place] [address], [place], [place] Pcp:Spencer Stanley MD Subjective: * Chief Complaints: [...] gardening/yard work, yoga. ?Marital status: . 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 * Medications:?TakingdilTIAZem HCl ER , Notes to [...] Uncomplicated (3)??? Plan: * Treatment: 2.?Plantar wart?Procedure: 82127-Zllb Destruction, 1-14 * Procedures:?Debride Nails 1-5:?Procedure:?Due to [...] necessary to maintain effective symptomatic relief - 14913.?Wart Treatment:?Procedure?Verruca, as described in exam, were debrided to pin-point bleeding margins with sterile 15 surgical blade, silver nitrate chemocautery applied, recomm. immune-boosting meds such as zinc, recomm. follow up with topical chemosurgical agents, Pt defers any other forms of tx - 02479.? * Procedure Codes:?53639 DEBRI DE NAIL, 1-5, Modifiers: XS 00906 Wart Destruction, 1-14, Modifiers: XS 1036F TOBACCO [...] time worn until they are using them night time nanny and in all activities. They were asked [...] Manriquez DPM Date:?2024 Generated for Kwaku hernández/Jameson/Yousuf on:?01/13/2025 01:42 PM EST History and Physical Notes * [...]
--- OUTSIDE RECORDS SUMMARY | 2025-01-13 13:42 | XMS_ITS ---
Author Organization [facility] Address [address] [place] [address] Care Team Providers Care Immigration Law Specialist Name Role Phone Spencer Stanley MD Primary Care Provider Sarabjit Caballero [phone] REASON FOR VISIT 38 pedags Encounters Encounter Location Date Provider Diagnosis [facility] [address] [place] [address] 11/17/2024 Sarabjit Manriquez Plan Of Treatment No Information Progress Notes * Maday ARBOLEDA MDOB:[birth year] (74 yo F)Acc No.[id number]:11/17/2024 Patient:?Maday ARBOLEDA :1950???Age:74 Y???Sex:Female Address:[place] [address] * true * Date:? Generated for Shimai edgar/Jameson/eTransmitting on:?01/13/2025 01:41 PM EST
== END 2025-01-13 12:49 | disposition home or self-care (01) ==
PROVIDERS: PCP Internal Medicine; Visit Provider Internal Medicine Nephrology
DX: I10 Essential (primary) hypertension (principal); E87.1 Hypo-osmolality and hyponatremia
CPT/HCPCS: 99214

== ENCOUNTER → 2025-01-13 11:46 | Outpatient (BNVA) | payer MEDICARE, SELFPAY | PROVIDERS: PCP Internal Medicine; Visit Provider Internal Medicine Nephrology | DX: I10 Essential (primary) hypertension (principal); E87.1 Hypo-osmolality and hyponatremia | CPT/HCPCS: 99212 ==

== ENCOUNTER → 2025-01-26 07:42 | Outpatient (REF) | payer MEDICARE, SELFPAY ==
--- OUTSIDE RECORDS SUMMARY | 2025-01-26 07:45 | XMS_ITS | Patient Health Record ---
Author Organization [facility] Address [address] [place] [address] Care Team Providers Care Sewer Tapper Name Role Phone Spencer Stanley MD Primary Care Provider Dany Regan Unavailable [phone] Allergies Allergen (clinical drug ingredient) Drug/Non Drug [...] Problem Status W/U Status Risk Notes Problem 1481547 Diverticulitis o f large intestine without perforation or abscess without bleeding (K57.32) Active confirmed Problem 404517897 Encounter for screening for malignant neoplasm of colon (Z12.11) Active confirmed Problem 302751198 Gastroesophageal reflux disease without esophagitis (K21.9) Active confirmed Problem 633190667 Elevated liver enzymes (R74.8) Active confirmed Problem Diverticulitis of colon (456241793) Diverticulitis of colon (K57.32) Active confirmed Problem 579849102 NSAID long-term use (Z79.1) Active confirmed Problem 905148101 Hx of adenomatou s colonic polyps (Z86.010) Active confirmed Vital Signs Blood pressure diastolic 11 mm Hg 12/06/2024 Height 63.75 in 12/06/2024 Blood pressure systolic 111 mm Hg 12/06/2024 Weight 136 lbs 12/06/2024 BMI 23.53 kg/m2 12/06/2024 Encounters Encounter Location Date Provider Diagnosis [facility] [address] [place] [address] 12/06/2024 Dany Willis Diverticulitis of co laya K57.32 Assessments Encounter Date Diagnosis (ICD Code) Assessment Notes Treatment Notes Treatment Clinical Notes Section Notes 12/06/2024 Diverticulitis of colon (ICD-10 - K57.32) Repeat colonoscopy in 04/2026 Go on a liquid diet for 1 or 2 days if the diverticulitis flares up, but definitely go on antibiotics if not getting better Need [facility] CT scan in 2023 Overall, Maday [...] Date MEDICARE OF [place] [address] [place] [address] [id number] MADAY ARBOLEDA Self - patient is the insured [employer] ATT[employer] CLAIMS [address] [place] [address] [id number] ROBLESMADAY Self - patient is the insured Medical (General) History Medical History History ICD Code 2003 and 05/07/2009 Colonoscopy--negative for polyps Tubular adenoma--removed in 2000 Internal hemorrhoids Diverticulosis-mild divertic ulitis of the distal descending/proximal sigmoid colon described on a CT scan in 12/2012, 11/2016, and 09/2018 GERD--EGD in 2003-small HH--no esophagit is, no Arevalo's Hiatal hernia Denies [place],DM,CVA,Lung disease,renal dise ase Osteoporosis Negative abdominal ultrasound in 01/2015--colonoscopy with sma ll tubular adenomas removed, diverticulosis, and internal hemorrhoids 01/2015-EGD with a small hiat al hernia, but no esophagitis nor Arevalo's esophagus Hx of kidney stones Hypertension Colonoscopy 04/2021 with a single tubular adenoma Diverticulitis 2023--had a [facility] at [facility] Surgical History Surgery Date(Month/Year) Hammer toe Hysterectomy w/removal of 1 ovary
--- OUTSIDE RECORDS SUMMARY | 2025-01-26 07:45 | XMS_ITS ---
Author Organization [facility] Address [address] [place] [address] Care Team Providers Care Certified Nurse Midwife Name Role Phone Spencer Stanley MD Primary Care Provider Sarabjit Caballero [phone] REASON FOR VISIT 38 pedags Encounters Encounter Location Date Provider Diagnosis [facility] [address] [place] [address] 11/17/2024 Sarabjit Manriquez Plan Of Treatment No Information Progress Notes * Maday ARBOLEDA MDOB:[birth year] (74 yo F)Acc No.[id number]:11/17/2024 Patient:?Maday ARBOLEDA :1950???Age:74 Y???Sex:Female Address:[place] [address] * true * Date:? Generated for Printi edgar/Jameson/eTransmitting on:?01/26/2025 07:45 AM EDT
--- OUTSIDE RECORDS SUMMARY | 2025-01-26 07:45 | XMS_ITS ---
Author Organization [facility] Address [address] [place] [address] Care Team Providers Care Template Worker Name Role Phone Spencer Stanley MD Primary Care Provider Sarabjit Caballero [phone] REASON FOR VISIT BUY Pedag [employer] (red) #38 / L 8 Encounters Encounter Location Date Provider Diagnosis [facility] [address] [place] [address] 11/15/2024 Sarabjit Manriquez Plan Of Treatment No Information Progress Notes * Maday ARBOLEDA MDOB:[birth year] (74 yo F)Acc No.[id number]:11/15/2024 Patient:?Maday ARBOLEDA :1950???Age:74 Y???Sex:Female Address:[place] [address] * true * Date:? Generated for Printi ng/Faxing/eTransmitting on:?01/26/2025 07:45 AM EDT
--- OUTSIDE RECORDS SUMMARY | 2025-01-26 07:45 | XMS_ITS | Patient Health Record ---
Author Organization [facility] Address [address] [facility] [place] [address] Care Team Providers Care Wire Taper Name Role Phone Spencer Stanley MD Primary Care Provider Sarabjit Caballero Unavailable [phone] Allergies Allergen (clinical drug ingredient) Drug/Non Drug [...] W/U Status Risk Notes Problem Plantar wart (26501948) Plantar wart (B07.0) Active confirmed Problem 999704711 Onychomycosis (B35.1) Active confirmed Vital Signs Blood pressure diastolic 80 mm Hg 11/15/2024 Height 5 ft 4 in in 11/15/2024 Blood pressure systolic 120 mm Hg 11/15/2024 Weight 142 lbs 11/15/2024 BMI 24.37 kg/m2 11/15/2024 Procedures Procedure Date Ordered Date Performed Result Body Sit e 53939-FDJVWGO NAIL, 1-11/15/2024 N/A 43516-Thir Destruction, -11/15/2024 N/A Encounters Encounter Location Date Provider Diagnosis [facility] [address] 11/15/2024 Sarabjit Manriquez Pain in left toe(s) M79.675 ; Onychomycosis B35.1 ; Right foot pain M79.671 ; Plantar wart B07.0 ; Pain in right ankle and joints of right foot M25.571 ; Bursitis of intermetatarsal bursa of right foot M77.51 and Metatarsalgia, right foot M77.41 [facility] [address] 11/15/2024 Sarabjit Manriquez [facility] [address] 11/17/2024 Sarabjit Manriquez Assessments Encounter Date Diagnosis [...] X ray : Foot, right 3V 09/25/2022 78529-JKKSTYL NAIL, 1-5 11/15/2024 34301-Irzq Destruction, 1-14 11/15/2024 40237-Braidbbn Plate 12/08/2017 88403- Debride <25 sq cm 12/25/2017 Insurance Providers Payer Name Payer Address Payer Phone Subscriber Number Group Number Insured Name Patient Relationship to Insured Coverage Start Date Coverage End Date Medicare National [employer] [address] [place] [address] [id number] Maday Draper Self - patient is the insured [employer] [facility] [address] [place] [address] [id number] Maday Draper Self - patient is the insured Medical (General) History Medical History History ICD Code Diverticulosis Measles Mumps Chicken pox Osteoporosis Reflux ( GERD) Hypertension Elevated LFTs Vitamin D deficiency Hypercalciuria Tubular adenoma of colon Cataracts Surgical History Surgery Date(Month/Year) hysterectomy 1986 hammer toe 1998
--- OUTSIDE RECORDS SUMMARY | 2025-01-26 07:45 | XMS_ITS ---
Author Organization [facility] Address [address] [place] [address] Care Team Providers Care Mining Analyst Name Role Phone Spencer Stanley MD Primary Care Provider Dany Regan [phone] Allergies Allergen (clinical drug ingredient) Drug/Non Drug [...] Status Risk Notes Problem Diverticulitis of colon (335817747) Diverticulitis of colon (K57.32) Active confirmed Vital Signs Blood pressure systolic 111 mm Hg 12/06/19 25 Blood pressure diastolic 11 mm Hg 025 Height 63.75 in 12/06/2024 Weight 136 lbs 12/06/2024 BMI 23.53 kg/m2 12/06/2024 Encounters Encounter Location Date Provider Diagnosis [facility] [address] [place] [address] 12/06/2024 Dany Willis Diverticulitis of co laya K57.32 Assessments Encounter Date Diagnosis (ICD Code) Assessment Notes Treatment Notes Treatment Clinical Notes Section Notes 12/06/2024 Diverticulitis of colon (ICD-10 - K57.32) Repeat colonoscopy in 04/2026 Go on a liquid diet for 1 or 2 days if the diverticulitis flares up, but definitely go on antibiotics if not getting better Need [facility] CT scan in 2023 Overall, [...] on antibiotics if not getting better Need [facility] CT scan in 2023 Next Appt Details Follow Up: prn, Reason: Progress Notes * MADAY ARBOLEDADOB:1949 (74 yo F)Acc No.[id number]:12/06/2024 Progress Notes Patient:?MADAY ARBOLEDA Provider:?Dany Willis MD :1950???Age:74 Y???Sex:Female D ate:12/06/2024 Address:[address] [place], [place] [address] [id number] Pcp:Spencer Stanley MD Subjective: * Chief Complaints: [...] at the time of that episode at [facility] as an outpatient She has [...] * Treatment: * Procedure Codes:?1036F TOBAC CO NON-UOHTV3043 BP SCR NOT PRFRM REC REASON NOS * Preventive Medicine:? ??Urinary Incontinence:?Urinary Incontinence?Assessment:?Absent,?Plan of care documented:?No, reason not specified.? ??Screenings:?Fall Risk Screening?Fall Risk Assessment:?No falls in the past year,?Screening:?No falls in the past year,?Assessment:?Not performed, no reason specified,?Plan of Care:?Not documented, no reason specified.? * Follow Up:?prn * * Sign off status: Completed true * Provider:?Dany Willis MD Date:? 025 Generated for Kwaku hernández/Jameson/Chrissmitting on:?01/26/2025 07:44 AM EDT History and Physical Notes * [...] at the time of that episode at [facility] as an outpatient She has [...]
--- OUTSIDE RECORDS SUMMARY | 2025-01-26 07:45 | XMS_ITS ---
Author Organization Spencer Stanley MD Address [address] [place] [phone] Care Team Providers Care Construction Safety Consultant Name Role Phone Spencer Stanley Primary Care Provider REASON FOR VISIT US abd no done Encounters Encounter Location Date Provider Diagnosis Spencer Stanley MD [facility] [address] [place] [address] [phone] 01/09/2025 Spencer Stanley Plan Of Treatment Next Appt Details Provider Name:Spencer correa, 04/13/2025 10:15:00 AM, [address] [place] [address], [address] [place] [address], [phone], Provider Name:Spencer correa, 01/08/2026 07:30:00 AM, [address] [place] [address], [address], [phone], Provider Name:Spencer Mccullough madeline, 01/15/2026 09:30:00 AM, [address], [address], [place], [phone], Progress Notes * Maday ARBOLEDA MDOB:[birth year] (74 yo F)Acc No.[id number]:01/09/2025 Patient:?Maday ARBOLEDA :1950???Age:74 Y???Sex:Female Address:[address] [place] [address], [place] [address] * true * Date:? Generated for Kwaku hernández/Jameson/eTransmitting on:?01/26/2025 07:44 AM EDT
--- OUTSIDE RECORDS SUMMARY | 2025-01-26 07:46 | XMS_ITS ---
Author Organization Spencer Stanley MD Address [address] [place] [phone] Care Team Providers Care J2Ee Developer Name Role Phone Spencer Stanley Primary Care [...] t Reviewed date:01/12/2025 11:52:13 AM Interpretation: Performing Lab:[facility], [address] [place] [id number] Notes/Report: Urine, Clean Catch Color Urine Yellow Appearance Urine Clear PH 6.5 5.0-9.0 Glucose Urine UA Negative Negative mg/dL Urine Blood Negative Negative Specific [place] - Urine 1.010 1.005-1.025 Urine Protein Negative [...] day Active Finacea 15 % 1 application Cooker Chip ally ONCE A DAY IN THE EVENING [...] Risk Notes Problem Macrocytosis - no anemia (899458518) Macrocytosis without anemia (D75.89) Active confirmed Vital Signs Blood pressure systolic 144 mm Hg 01/13/20 25 Blood pressure diastolic 72 mm Hg 025 Height 64 in 01/12/2025 Weight 141 lbs 01/12/2025 BMI 24.2 kg/m2 01/12/2025 Encounters Encounter Location Date Provider Diagnosis Spencer Stanley MD [address] [place] [address] [place] [address] [phone] 01/12/2025 Spencer Stanley Essential hypertension I10 ; [...] [address], [address], [place], [phone], Provider Name:Spencer Mccullough madeline, 01/08/2026 07:30:00 AM, [address], [address], [place], [phone], Provider Name:Spencer Mccullough madeline, 01/15/2026 09:30:00 AM, [address], [address], [place], [phone], Progress Notes * Maday ARBOLEDA MDOB:[birth year] (74 yo F)Acc No.[id number]:01/12/2025 Patient:?Maday ARBOLEDA Provider:?Spencer Stanley MD :1950???Age:74 Y???Sex:Female D ate:01/12/2025 Address:[address] [place], [place] [phone] Subjective: * Chief Complaints: * ???COMP EXAM still c/o heada cheUS ABD has not done yet. * HPI: ???Depression Screening:?PHQ-9?Little interest or pleasure [...] or any lesions of concern.?Denies?Photosensitivity.?Rash?denies.?Neurologic:?Dizziness?denies.?Fainting?denies.?Headache?denies.? * Medical History:? * Surgical History:? * Hospitalization/Major Diagno stic Procedure:? * Family History:?Father: dece ased 78 yrs, [...] outside of the [place]: no. * Medications:?TakingdilTIAZem HCl 60 MG Tablet as [...] palpitationsyes[Allergies Verified] Objective: * Vitals:?Ht: 64, Wt: 141, BMI [...] 62.4 >30 - ng/mL ???Lab:Lipid Panel (Order Da te - 01/05/2025) (Collection Date & Time - 01/05/2025 07:45 AM) ? Value Reference Range ?Triglycerides 59 <150 - mg/dL ?Cholesterol 251 H <200 - m g/dL ?LDL Cholesterol Calculated 162 H <100 - mg/dL ?HDL Cholesterol 78 >40 - mg/dL ???Lab:Liver Panel (Order Da te 01/05/2025) (Collection Date & Time - 01/05/2025 07:45 AM) ? Value Reference Range ?Bilirubin Direct 0.2 0.0 -0.5 - mg/dL ???Lab:Comprehensive [place]. P estrellita Fast (Order 01/05/2025) (Collection Date & Time - 01/05/2025 [...] masses palpable, stool guaiac negative.?FEMALE GENITOURINARY:?done by marine welder.?EXTREMITIES:?no clubbing, cyanosis, or edema.?NEUROLOGIC:?nonfocal, motor strength normal [...] negative??6.?Depression screening? Notes: negtive screen?? * Procedure Codes:?58160 TEST FOR BLOOD, FECES * Follow Up:?3 Months * * Sign off status: Completed true * Provider:?Spencer Stanley MD Date:?0 01/12/2025 Generated for Kwaku hernández/Jameson/eTransmitting on:?01/26/2025 07:45 AM EDT History and Physical Notes * [...] stool guaiac negative FEMALE GENITOURINARY: done by marine welder ORAL CAVITY: mucosa moist
--- OUTSIDE RECORDS SUMMARY | 2025-01-26 07:46 | XMS_ITS ---
Author Organization [facility] Address [address] [facility] [place] [address] Care Team Providers Care Legal Billing Analyst Name Role Phone Spencer Stanley MD Primary Care Provider Sarabjit Caballero Unavailable [phone] Allergies Allergen (clinical drug ingredient) Drug/Non Drug [...] W/U Status Risk Notes Problem Plantar wart (75811743) Plantar wart (B07.0) Active confirmed Problem [id number] Onychomycosis (B35.1) Active confirmed Vital Signs Height 5 ft 4 in in 11/15/2024 Weight 142 lbs 11/15/2024 BMI 24.37 kg/m2 11/15/2024 Blood pressure systolic 120 mm Hg 11/15/19 25 Blood pressure diastolic 80 mm Hg 025 Procedures Procedure Date Ordered Date Performed Result Body Sit e 16883-LZECGEX NAIL, 1-11/15/2024 N/A 67190-Adhu Destruction, 11-2211/15/2024 N/A Encounters Encounter Location Date Provider Diagnosis [facility] [address] [phone] 11/15/2024 Sarabjit Manriquez Pain in left toe(s) [...] Treatment Pending Test Test Name Order Date 67565-XZHHOOM NAIL, 1-5 11/15/2024 64605-Tbtl Destruction, 1-11/15/2024 Next Appt Details Follow Up: prn, Reason: Procedure Notes * Category Sub-Category Detail Notes Wart Treatment Procedure Verruca, as desc ribed in exam, were debrided to pin-point bleeding margins with sterile 15 surgical blade, silver nitrate chemocautery applied, recomm. immune-boosting meds such as zinc, recomm. follow up with topical chemosurgical agents, Pt defers any other forms of tx - 36286 Debride Nails 1-5 Procedure: Due to the [...] necessary to maintain effective symptomatic relief - 44837 Progress Notes * Maday ARBOLEDA MDOB:[birth year] (74 yo F)Acc No.[id number]:11/15/2024 Progress Note Patient:?Maday ARBOLEDA Provider:?Sarabjit Manriquez DPM :1950???Age:74 Y???Sex:Female D ate:11/15/2024 Address:[address] [place] [address], [place], [phone] Pcp:Spencer Stanley MD Subjective: * Chief Complaints: [...] gardening/yard work, yoga. ?Marital status: . 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 * Medications:?TakingdilTIAZem HCl ER , Notes to [...] Uncomplicated (3)??? Plan: * Treatment: 2.?Plantar wart?Procedure: 81304-Vvls Destruction, 1-14 * Procedures:?Debride Nails 1-5:?Procedure:?Due to [...] necessary to maintain effective symptomatic relief - 61567.?Wart Treatment:?Procedure?Verruca, as described in exam, were debrided to pin-point bleeding margins with sterile 15 surgical blade, silver nitrate chemocautery applied, recomm. immune-boosting meds such as zinc, recomm. follow up with topical chemosurgical agents, Pt defers any other forms of tx - 77617.? * Procedure Codes:?53366 DEBRI DE NAIL, 1-5, Modifiers: XS 19477 Wart Destruction, 1-14, Modifiers: XS 1036F TOBACCO [...] time worn until they are using them daytime babysitter and in all activities. They were asked [...] Manriquez DPM Date:?2024 Generated for Kwaku hernández/Jameson/Yousuf on:?01/26/2025 07:45 AM EDT History and Physical [...]
--- NOTE | 2025-01-26 07:51 | CA_ITS ---
Transthoracic Echocardiogram Patient (Last, First, Middle): Maday Draper M Gender: Female Date of : 1950 Age: 74 Procedure Date: 01/26/2025 Procedure Type: Transthoracic Echocardiogram Location: OP Height: 160.02 cm Weight: 63.5 kg BSA: 1.66 m2 Heart Rate: 59 bpm BP: 126 / 70 mmHg Job Printer: SB Referring MD: Junior Ortez MD Environmental Officer: Shree Graff MD Symptoms: I25.10 - Atherosclerotic heart disease of [place] coronary artery without... Study Quality: Adequate ECG Rhythm: Bradycardia Conclusions: - 1. Normal LV ejection fraction of 60 65% with impaired relaxation filling pattern 2. No significant abnormalities of cardiac valvular Dopplers 3. Normal RV systolic pressure 4. Upper limits of normal ascending aortic size 5. No gross pericardial effusion Findings Left Ventricle Normal left ventricular size, thickness, and systolic function. The visually estimated ejection fraction is between 60-65%. Spectral Doppler is indicative of an impaired relaxation filling pattern. Right Ventricle Normal right ventricular cavity size and systolic function. Atria Both atria are normal in size. There is no evidence of interatrial shunt. Aortic Valve Normal aortic valve structure and function. There is no aortic valve stenosis. There is trace (trivial) aortic valve regurgitation. Mitral Valve Normal mitral valve structure and function. There is trace mitral valve regurgitation. There is no mitral valve stenosis. Pulmonic Valve The pulmonic valve is likely normal. There is trace to mild pulmonic valve regurgitation. Tricuspid Valve Normal tricuspid valve structure. There is trace tricuspid valve regurgitation. The right ventricular systolic pressure is normal. The right ventricular systolic pressure is 23 mmHg. Normal right atrial pressure. There is no evidence of pulmonary hypertension. Great Vessels The pulmonary artery was not well visualized. There is no dilatation of the ascending aorta measuring 3.50 cm. Venous The inferior vena cava is normal in size and collapses greater than 50% with inspiration. Pericardium/Pleural There is no evidence of pericardial effusion. Measurements 2D Linear Measurements IVSd: 1.16 0.6-0.9/0.6-1.0 cm LVIDd: 4.42 3.9-5.3/4.2-5.9 cm LVIDd Index: 2.66 2.4-3.2/2.2-3.1 cm/m2 LVIDs: 2.37 2.0-3.6 cm LVPWd: 0.61 0.7-1.1 cm LA Diam: 3.10 2.7-3.8/3.0-4.0 cm LAIDs Index: 1.87 1.5-2.3 cm/m2 LV Mass: 156.74 67-162/88-224 g LV Mass Index: 94.42 43-95/49-115 g/m2 LVOT Diam: 2.00 3.0+(-)1.3 cm 2D Systolic Function EF 4C: 63.60 >55% EF 2C: 57.10 >55% EF BiP: 60.30 >55% Mitral Valve MV Pk E: 0.72 MV PK A: 0.81 MV Decel Time: 152.00 E/A: 0.90 E'Lateral: 8.27 E'Medial: 4.13 E/E' Med: 17.50 E/E' Lat: 8.80 PHT: 45.00 MVA PHT: 4.89 Decel [place]: 4.76 Aortic Valve AoV Pk Mirza: 1.22 AoV Pk Grad: 6.00 JOSE A: 2.84 AI Pk Mirza: 4.76 AI VTI: 3.91 AI [place]: 1.68 LVOT LVOT Pk Mirza: 0.98 LVOT Mn Mirza: 0.63 LVOT VTI: 0.28 LVOT Pk Grad: 4.00 LVOT Mn Grad: 2.00 LVOT Diam: 2.00 LVOT Area: 3.14 Diastolic Function MV Pk E: 0.72 MV Pk A: 0.81 E/A: 0.90 E'Medial: 4.13 E/E' Med: 17.50 E' Laterial: 8.27 E/E' Lat: 8.80 Right Ventricle TAPSE (mm): 23.00 TVS' Mirza: 13.70 Tricuspid Valve TR Pk Mirza: 2.25 TR Pk Grad: 20.00 RA Press: 3.00 RVSP: 23.00 Great Vessels Aorta Sinus of Valsalva: 2.80 2.0-3.5 cm Ao Asc: 3.50 2.1-3.4 cm Ao Arch: 3.00 Pulmonary Veins Pulm Vein S/D 1.30 Pulmonary Valve PV Pk Mirza: 0.95 Peak PV Grad: 4.00 Updated in Other Vendor System with Status of Final Shree Graff MD electronically signed on 01/27/2025 1:57:29 PM with status of Final
== END ==
LOC: HO.CARD 07:42
PROVIDERS: PCP Internal Medicine; Visit Provider Internal Medicine
DX: R00.2 Palpitations (principal); R00.0 Tachycardia, unspecified; I25.10 Atherosclerotic heart disease of native coronary artery without angina pectoris; R94.31 Abnormal electrocardiogram [ECG] [EKG]; R20.0 Anesthesia of skin
CPT/HCPCS: 93242; 93306

== ENCOUNTER → 2025-01-26 07:51 | Outpatient (BNV) | payer MEDICARE, SELFPAY | PROVIDERS: PCP Internal Medicine; Visit Provider Internal Medicine Cardiovascular Disease | DX: I25.10 Atherosclerotic heart disease of native coronary artery without angina pectoris (principal) | CPT/HCPCS: 93306 ==

== ENCOUNTER → 2025-02-15 08:12 | Outpatient (REF) | payer MEDICARE, SELFPAY ==
--- OUTSIDE RECORDS SUMMARY | 2025-02-15 08:18 | XMS_ITS ---
Author Organization [facility] Address [address] [place] [address] Care Team Providers Care Food Service Lead Name Role Phone Spencer Stanley MD Primary Care Provider Dany Regan [phone] Allergies Allergen (clinical drug ingredient) Drug/Non Drug [...] Status Risk Notes Problem Diverticulitis of colon (083360627) Diverticulitis of colon (K57.32) Active confirmed Vital Signs Blood pressure systolic 111 mm Hg 12/06/19 25 Blood pressure diastolic 11 mm Hg 025 Height 63.75 in 12/06/2024 Weight 136 lbs 12/06/2024 BMI 23.53 kg/m2 12/06/2024 Encounters Encounter Location Date Provider Diagnosis [facility] [address] [place] [address] 12/06/2024 Dany Willis Diverticulitis of co laya K57.32 Assessments Encounter Date Diagnosis (ICD Code) Assessment Notes Treatment Notes Treatment Clinical Notes Section Notes 12/06/2024 Diverticulitis of colon (ICD-10 - K57.32) Repeat colonoscopy in 04/2026 Go on a liquid diet for 1 or 2 days if the diverticulitis flares up, but definitely go on antibiotics if not getting better Need [facility] CT scan in 2023 Overall, Maday [...] on antibiotics if not getting better Need [facility] CT scan in 2023 Next Appt Details Follow Up: prn, Reason: Progress Notes * MADAY ARBOLEDADOB:1949 (74 yo F)Acc No.[id number]:12/06/2024 Progress Notes Patient:?MADAY ARBOLEDA Provider:?Dany Willis MD :1950???Age:74 Y???Sex:Female D ate:12/06/2024 Address:[address] [place], [place] [address] [place] Pcp:Spencer Stanley MD Subjective: * Chief Complaints: [...] at the time of that episode at [facility] as an outpatient She has not [...] * Treatment: * Procedure Codes:?1036F TOBAC CO NON-ILMZK9047 BP SCR NOT PRFRM REC REASON NOS [...] MD Date:? 025 Generated for Kwaku hernández/Jameson/Chrissmitting on:?02/15/2025 08:18 AM EDT History and Physical Notes * [...] at the time of that episode at [facility] as an outpatient She has not [...]
--- OUTSIDE RECORDS SUMMARY | 2025-02-15 08:18 | XMS_ITS ---
Author Organization Spencer Stanley MD Address [address] [place] [phone] Care Team Providers Care Genetic Supervisor Name Role Phone Spencer Stanley Primary Care Provider REASON FOR VISIT US ABD orders Encounters Encounter Location Date Provider Diagnosis Spencer Stanley MD [address] [place] [address] [place] [phone] 01/20/2025 Spencer Stanley Plan Of Treatment Next Appt Details Provider Name:Spencer correa, 02/20/2025 09:15:00 AM, [address] [place] [address], [address], [phone], Provider Name:Spencer correa, 04/13/2025 10:15:00 AM, [address] [place] [address], [address], [phone], Provider Name:Spencer Mccullough ier, 01/08/2026 07:30:00 AM, [address], [place], [phone], Provider Name:Spencer Mccullough ier, 01/15/2026 09:30:00 AM, [address], [place], [phone], Progress Notes * Maday ARBOLEDA MDOB:[birth year] (74 yo F)Acc No.[id number]:01/20/2025 Patient:?Maday ARBOLEDA M :1950???Age:74 Y???Sex:Female Address:[address] [place] [address] [place] [address] * true * Date:? Generated for Kwaku hernández/Jameson/eTransmitting on:?02/15/2025 08:17 AM EDT
--- OUTSIDE RECORDS SUMMARY | 2025-02-15 08:18 | XMS_ITS | Patient Health Record ---
Author Organization [facility] Address [address] [facility] [place] [address] Care Team Providers Care Cocoa Milling Machine Operator Name Role Phone Spencer Stanley MD Primary Care Provider Sarabjit Caballero Unavailable [phone] Allergies Allergen (clinical drug ingredient) Drug/Non Drug [...] W/U Status Risk Notes Problem Plantar wart (12195582) Plantar wart (B07.0) Active confirmed Problem 936477519 Onychomycosis (B35.1) Active confirmed Vital Signs Blood pressure diastolic 80 mm Hg 11/15/2024 Height 5 ft 4 in in 11/15/2024 Blood pressure systolic 120 mm Hg 11/15/2024 Weight 142 lbs 11/15/2024 BMI 24.37 kg/m2 11/15/2024 Procedures Procedure Date Ordered Date Performed Result Body Sit e 40404-QGZXRBN NAIL, 1-11/15/2024 N/A 64522-Ruru Destruction, -11/15/2024 N/A Encounters Encounter Location Date Provider Diagnosis [facility] [address] 11/15/2024 Sarabjit Manriquez Pain in left toe(s) M79.675 ; Onychomycosis B35.1 ; Right foot pain M79.671 ; Plantar wart B07.0 ; Pain in right ankle and joints of right foot M25.571 ; Bursitis of intermetatarsal bursa of right foot M77.51 and Metatarsalgia, right foot M77.41 [facility] [address] 11/15/2024 Sarabjit Manriquez [facility] [address] 11/17/2024 Sarabjit Manriquez Assessments Encounter Date Diagnosis [...] X ray : Foot, right 3V 09/25/2022 22502-LWZXZNS NAIL, 1-5 11/15/2024 93433-Ougq Destruction, 1-14 11/15/2024 18381-Ljfxlgik Plate 12/08/2017 96759- Debride <25 sq cm 12/25/2017 Insurance Providers Payer Name Payer Address Payer Phone Subscriber Number Group Number Insured Name Patient Relationship to Insured Coverage Start Date Coverage End Date Medicare National [employer] [address] [place] [address] [id number] Maday Draper Self - patient is the insured [email or web address] [facility] [address] [place] [address] [id number] Maday Draper Self - patient is the insured Medical (General) History Medical History History ICD Code Diverticulosis Measles Mumps Chicken pox Osteoporosis Reflux ( GERD) Hypertension Elevated LFTs Vitamin D deficiency Hypercalciuria Tubular adenoma of colon Cataracts Surgical History Surgery Date(Month/Year) hysterectomy 1986 hammer toe 1998
--- OUTSIDE RECORDS SUMMARY | 2025-02-15 08:18 | XMS_ITS | Patient Health Record ---
Author Organization [facility] Address [address] [place] [address] Care Team Providers Care Operations Research Scientist Name Role Phone Spencer Stanley MD Primary Care Provider Dany Regan Unavailable [phone] Allergies Allergen (clinical drug ingredient) Drug/Non Drug [...] Problem Status W/U Status Risk Notes Problem 9375260 Diverticulitis o f large intestine without perforation or abscess without bleeding (K57.32) Active confirmed Problem 938048419 Encounter for screening for malignant neoplasm of colon (Z12.11) Active confirmed Problem 845004500 Gastroesophageal reflux disease without esophagitis (K21.9) Active confirmed Problem 813808729 Elevated liver enzymes (R74.8) Active confirmed Problem Diverticulitis of colon (337098269) Diverticulitis of colon (K57.32) Active confirmed Problem 772157474 NSAID long-term use (Z79.1) Active confirmed Problem 547679922 Hx of adenomatou s colonic polyps (Z86.010) Active confirmed Vital Signs Blood pressure diastolic 11 mm Hg 12/06/2024 Height 63.75 in 12/06/2024 Blood pressure systolic 111 mm Hg 12/06/2024 Weight 136 lbs 12/06/2024 BMI 23.53 kg/m2 12/06/2024 Encounters Encounter Location Date Provider Diagnosis [facility] [address] [place] [address] 12/06/2024 Dany Willis Diverticulitis of co laya K57.32 Assessments Encounter Date Diagnosis (ICD Code) Assessment Notes Treatment Notes Treatment Clinical Notes Section Notes 12/06/2024 Diverticulitis of colon (ICD-10 - K57.32) Repeat colonoscopy in 04/2026 Go on a liquid diet for 1 or 2 days if the diverticulitis flares up, but definitely go on antibiotics if not getting better Need [facility] CT scan in 2023 Overall, Maday [...] Date MEDICARE OF [place] [address] [place] [address] [id number] MADAY ARBOLEDA Self - patient is the insured [employer] CLAIMS [address] [place] [address] [id number] ROBLESMADAY Self - patient is the insured Medical (General) History Medical History History ICD Code 2003 and 05/07/2009 Colonoscopy--negative for polyps Tubular adenoma--removed in 2000 Internal hemorrhoids Diverticulosis-mild divertic ulitis of the distal descending/proximal sigmoid colon described on a CT scan in 12/2012, 11/2016, and 09/2018 GERD--EGD in 2003-small HH--no esophagit is, no Arevalo's Hiatal hernia Denies DE,DM,CVA,Lung disease,renal dise ase Osteoporosis Negative abdominal ultrasound in 01/2015--colonoscopy with sma ll tubular adenomas removed, diverticulosis, and internal hemorrhoids 01/2015-EGD with a small hiat al hernia, but no esophagitis nor Arevalo's esophagus Hx of kidney stones Hypertension Colonoscopy 04/2021 with a single tubular adenoma Diverticulitis 2023--had a CT at [facility] Surgical History Surgery Date(Month/Year) Hammer toe Hysterectomy w/removal of 1 ovary
--- OUTSIDE RECORDS SUMMARY | 2025-02-15 08:18 | XMS_ITS ---
Author Organization Spencer Stanley MD Address [address] [place] [phone] Care Team Providers Care Clam Grower Name Role Phone Spencer Stanley Primary Care Provider REASON FOR VISIT several issues Encounters Encounter Location Date Provider Diagnosis Spencer Stanley MD [address] [place] [address] [address] [place] [phone] 02/14/2025 Spencer Stanley Plan Of Treatment Next Appt Details Provider Name:Spencer correa, 02/20/2025 09:15:00 AM, [address] [place] [address], [address], [phone], Provider Name:Spencer correa, 04/13/2025 10:15:00 AM, [address] [place] [address], [address], [phone], Provider Name:Spencer Mccullough ier, 01/08/2026 07:30:00 AM, [address], [address], [place], [phone], Provider Name:Spencer Mccullough ier, 01/15/2026 09:30:00 AM, [address], [address], [place], [phone], Progress Notes * Maday ARBOLEDA MDOB:[birth year] (74 yo F)Acc No.[id number]:02/14/2025 Patient:?Maday ARBOLEDA :1950???Age:74 Y???Sex:Female Address:[address] [place] [address] [place] [address] * true * Date:? Generated for Shimai edgar/Jameson/eTransmitting on:?02/15/2025 08:17 AM EDT
--- OUTSIDE RECORDS SUMMARY | 2025-02-15 08:19 | XMS_ITS ---
Author Organization [facility] Address [address] [place] [address] Care Team Providers Care Rubber Grinder Name Role Phone Spencer Stanley MD Primary Care Provider Sarabjit Caballero [phone] REASON FOR VISIT BUY Pedag Viva Sport (red) #38 / L 8 Encounters Encounter Location Date Provider Diagnosis [facility] [address] [place] [address] 11/15/2024 Sarabjit Manriquez Plan Of Treatment No Information Progress Notes * Maday ARBOLEDA MDOB:[birth year] (74 yo F)Acc No.[id number]:11/15/2024 Patient:?Maday ARBOLEDA :1950???Age:74 Y???Sex:Female Address:[place] [address] * true * Date:? Generated for Printi ng/Faxing/eTransmitting on:?02/15/2025 08:18 AM EDT
--- OUTSIDE RECORDS SUMMARY | 2025-02-15 08:19 | XMS_ITS ---
Author Organization [facility] Address [address] [place] [address] Care Team Providers Care Cut And Print Machine Operator Name Role Phone Spencer Stanley MD Primary Care Provider Sarabjit Caballero [phone] REASON FOR VISIT 38 pedags Encounters Encounter Location Date Provider Diagnosis [facility] [address] [place] [address] 11/17/2024 Sarabjit Manriquez Plan Of Treatment No Information Progress Notes * Maday ARBOLEDA MDOB:[birth year] (74 yo F)Acc No.[id number]:11/17/2024 Patient:?Maday ARBOLEDA :1950???Age:74 Y???Sex:Female Address:[place] [address] * true * Date:? Generated for Printi edgar/Jameson/eTransmitting on:?02/15/2025 08:19 AM EDT
--- OUTSIDE RECORDS SUMMARY | 2025-02-15 08:20 | XMS_ITS ---
Author Organization [facility] Address [address] [facility] [place] [address] Care Team Providers Care Piece Dyer Name Role Phone Spencer Stanley MD Primary Care Provider Sarabjit Caballero Unavailable [phone] Allergies Allergen (clinical drug ingredient) Drug/Non Drug [...] W/U Status Risk Notes Problem Plantar wart (49415058) Plantar wart (B07.0) Active confirmed Problem 188739650 Onychomycosis (B35.1) Active confirmed Vital Signs Blood pressure systolic 120 mm Hg 11/15/19 25 Blood pressure diastolic 80 mm Hg 025 Height 5 ft 4 in in 11/15/2024 Weight 142 lbs 11/15/2024 BMI 24.37 kg/m2 11/15/2024 Procedures Procedure Date Ordered Date Performed Result Body Sit e 37472-TUDQFXP NAIL, 1-11/15/2024 N/A 15521-Tgxx Destruction, 11-2211/15/2024 N/A Encounters Encounter Location Date Provider Diagnosis [facility] [address] [place] [address] 11/15/2024 Sarabjit Manriquez Pain in left toe(s) [...] Treatment Pending Test Test Name Order Date 05311-WMUBTXM NAIL, 1-5 11/15/2024 79521-Cqas Destruction, 1-11/15/2024 Next Appt Details Follow Up: prn, Reason: Procedure Notes * Category Sub-Category Detail Notes Wart Treatment Procedure Verruca, as desc ribed in exam, were debrided to pin-point bleeding margins with sterile 15 surgical blade, silver nitrate chemocautery applied, recomm. immune-boosting meds such as zinc, recomm. follow up with topical chemosurgical agents, Pt defers any other forms of tx - 35998 Debride Nails 1-5 Procedure: Due to the [...] necessary to maintain effective symptomatic relief - 32530 Progress Notes * Maday ARBOLEDA MDOB:[birth year] (74 yo F)Acc No.[id number]:11/15/2024 Progress Note Patient:?Maday ARBOLEDA Provider:?Sarabjit Manriquez DPM :1950???Age:74 Y???Sex:Female D ate:11/15/2024 Address:[address] [place] [address], [place], [phone] Pcp:Spencer Stanley MD Subjective: * Chief Complaints: [...] gardening/yard work, yoga. ?Marital status: . 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 * Medications:?TakingdilTIAZem HCl ER , Notes to [...] Uncomplicated (3)??? Plan: * Treatment: 2.?Plantar wart?Procedure: 00536-Eitq Destruction, 1-14 * Procedures:?Debride Nails 1-5:?Procedure:?Due to [...] necessary to maintain effective symptomatic relief - 11000.?Wart Treatment:?Procedure?Verruca, as described in exam, were debrided to pin-point bleeding margins with sterile 15 surgical blade, silver nitrate chemocautery applied, recomm. immune-boosting meds such as zinc, recomm. follow up with topical chemosurgical agents, Pt defers any other forms of tx - 40160.? * Procedure Codes:?14080 DEBRI DE NAIL, 1-5, Modifiers: XS 19088 Wart Destruction, 1-14, Modifiers: XS 1036F TOBACCO [...] time worn until they are using them supervisor cold rolling and in all activities. They were asked [...] * Sign off status: Completed true * Provider:?Sraabjit Manriquez DPM Date:?2024 Generated for Kwaku hernández/Jameson/Yousuf on:?02/15/2025 08:19 AM EDT History and Physical Notes * [...] ABNORMALITY: antalgic FOOT MORPHOLOGY: Pes Cavus structure FOOTWEAR EVALUATION: worn, OT were inspe cted and noted to be severely worn , [...]
--- OUTSIDE RECORDS SUMMARY | 2025-02-15 08:20 | XMS_ITS ---
Author Organization Spencer Stanley MD Address [address] [place] [phone] Care Team Providers Care Grinder Chipper Name Role Phone Spencer Stanley Primary Care Provider [phone] Allergies Allergen (clinical drug ingredient) Drug/Non Drug [...] t Reviewed date:01/12/2025 11:52:13 AM Interpretation: Performing Lab:[facility], [address] [place] [phone] Notes/Report: Urine, Clean Catch Color Urine Yellow Appearance Urine Clear PH 6.5 5.0-9.0 Glucose Urine UA Negative Negative mg/dL Urine Blood Negative Negative Specific [place] - Urine 1.010 1.005-1.025 Urine Protein Negative [...] MG TAKE 1 CAPSULE BY [facility] EVERY DAY 30 MINUTES BEFORE BREAKFAST [...] day Active Finacea 15 % 1 application Colorer ally ONCE A DAY IN THE EVENING [...] Risk Notes Problem Macrocytosis - no anemia (685956236) Macrocytosis without anemia (D75.89) Active confirmed Vital Signs Blood pressure systolic 144 mm Hg 01/13/20 25 Blood pressure diastolic 72 mm Hg 025 Height 64 in 01/12/2025 Weight 141 lbs 01/12/2025 BMI 24.2 kg/m2 01/12/2025 Encounters Encounter Location Date Provider Diagnosis Spencer Stanley MD [address] [place] [address] [place] [phone] 01/12/2025 Spencer Stanley Essential hypertension I10 ; [...] Follow Up: 3 Months, Reason: Provider Name:Spencer correa, 02/20/2025 09:15:00 AM, [address], [address], [place], [phone], Provider Name:Spencer Nieto Jamel correa, 04/13/2025 10:15:00 AM, [address], [address], [place], [phone], Provider Name:Spencer correa, 01/08/2026 07:30:00 AM, [address], [address], [place], [phone], Provider Name:Spencer Gerson Jamel correa, 01/15/2026 09:30:00 AM, [address] [facility], [address] [facility], [place], [phone], Progress Notes * Maday ARBOLEDA MDOB:[birth year] (74 yo F)Acc No.[id number]:01/12/2025 Patient:?Maday ARBOLEDA Provider:?Spencer Stanley MD :1950???Age:74 Y???Sex:Female D ate:01/12/2025 Address:[address] [place] [address] [place] [id number] Subjective: * Chief Complaints: * ???COMP EXAM [...] 62.4 >30 - ng/mL ???Lab:Lipid Panel (Order 01/05/2025) (Collection Date & Time - 01/05/2025 07:45 AM) ? Value Reference Range ?Triglycerides 59 <150 - mg/dL ?Cholesterol 251 H <200 - m g/dL ?LDL Cholesterol Calculated 162 H <100 - mg/dL ?HDL Cholesterol 78 >40 - mg/dL ???Lab:Liver Panel (Order 01/05/2025) (Collection Date & Time - 01/05/2025 07:45 AM) ? Value Reference Range ?Bilirubin Direct 0.2 0.0 -0.5 - mg/dL ???Lab:Comprehensive [place]. P estrellita Fast (Order 01/05/2025) (Collection Date [...] masses palpable, stool guaiac negative.?FEMALE GENITOURINARY:?done by winch derrick operator.?EXTREMITIES:?no clubbing, cyanosis, or edema.?NEUROLOGIC:?nonfocal, motor strength normal [...] negative??6.?Depression screening? Notes: negtive screen?? * Procedure Codes:?27705 TEST FOR BLOOD, FECES * Follow Up:?3 Months * * Sign off status: Completed true * Provider:?Spencer Stanley MD Date:?0 01/12/2025 Generated for Kwaku hernández/Jameson/eTransmitting on:?02/15/2025 08:19 AM EDT History and Physical [...] stool guaiac negative FEMALE GENITOURINARY: done by winch derrick operator ORAL CAVITY: mucosa moist
--- NOTE | 2025-02-15 08:21 | CA_ITS ---
Acquisition Time: 2025-02-15 08:32:03 Total Exercise Time: 00:05:49 Test Indications: Abnormal ECG Medications: DILTIAZEM VALSARTAN Protocol: LEATHA Max HR: 136 BPM 94% of Pred: 144 BPM Max BP: 172/98 mmHG Max Work Load: 7.0 METS Exercise Stress Test with exercise 5 mins 49 secs of Leatha Protocol, achieving 92% MPHR, without any anginal symptoms, with isolated PVCs, with normotensive response to exercise. Without EKG changes meeting criteria for ischemia. Echo images obtained by tech at rest and post peak exercise. Definity contrast utilized. Test reviewed with Dr. Lundberg. Referred By: Jnuior Ortez Electronically Signed By: Collin Rodríguez
== END ==
LOC: HO.CARD 08:12
PROVIDERS: PCP Internal Medicine; Visit Provider Internal Medicine
DX: R07.2 Precordial pain (principal); R94.31 Abnormal electrocardiogram [ECG] [EKG]
CPT/HCPCS: 93350; Q9957

== ENCOUNTER → 2025-02-15 08:21 | Outpatient (BNV) | payer MEDICARE, SELFPAY | PROVIDERS: PCP Internal Medicine | DX: R94.31 Abnormal electrocardiogram [ECG] [EKG] (principal) | CPT/HCPCS: 93016; 93018; 93350; 93352 ==

== ENCOUNTER 2025-02-21 09:25 | Outpatient (AMB) | payer MEDICARE, SELFPAY ==
[2025-02-21 09:58] VITALS: BP 148/72; PULSE 58; BMI 24.6
--- NOTE | 2025-02-21 09:58 | MHC.OFFVIS ---
Vital Signs 02/21/25 09:58 Height 5 ft 3 in Weight 138 lb 14.259 oz BMI 24.6 BP 148/72 H Blood Pressure Location Lt brachial Position Sitting Pulse 58 Pulse Source Pulse Oximeter Intake Visit Reasons: HS s/p holter/ echo/ stress echo Print Production Coordinator Required: No Allergies tetracycline [TETRACYCLINE] Allergy (Unknown, Verified 02/21/25 10:01) Rash, itchy epinephrine Allergy (Unknown, Uncoded 02/21/25 10:01) heart palpitations Medication List - Last Reconciled 02/21/25 by Soumya Charles NP-C diltiazem HCl ER 180 mg PO DAILY diltiazem HCl ER 60 mg PO DAILY 90 days valsartan 320 mg PO DAILY HPI HPI HS s/p holter/ echo/ stress echo: Details: Maday is a 74-year-old female with past medical history of hypertension recently had EKG showing septal Q-wave. She underwent cardiac evaluation with echocardiogram, stress echo and Holter monitor and now presents for follow-up. Today she reports that she does feel occasional heart palpitations which are brief and rapid. They typically last 1-2 seconds and resolve. She has not had any sustained rapid or irregular rates. She denies any chest discomfort at rest or with activity. No shortness of breath, PND, orthopnea. She will notice some trace edema at times in the evening. No lightheadedness, presyncope, syncope. She does have a feeling of head congestion most of the time. She also reports some pulsating tinnitus that is more noticeable on some days than other days. Overall she is not satisfied with how she is feeling. She reports generalized fatigue but does state she sleeps well. She has no concerns for sleep apnea. She is currently following with Dr. Nichols for hypertension. She has been taking her diltiazem and valsartan as directed. COUNTS INCLUDE 234 BEDS AT THE [facility] Medical History Hypertension History of kidney stones Hiatal hernia Osteoporosis GERD (gastroesophageal reflux disease) Surgical History History of blepharoplasty History of hammer toe correction Hx of hysterectomy History of esophagogastroduodenoscopy (EGD) Hx of colonoscopy Family History Mother Hypertension Kidney stone Father Cancer Social History Do you presently have visiting nurse or other home services: No Alcohol intake: never Patient Tobacco Use Status: Former Tobacco user Review of Systems Const Details: foggy feeling in head All systems reviewed & are unremarkable except as noted in HPI and below Reports fatigue ENT Denies dizziness Card Details: brief heart palpitations Denies chest pain, Denies chest pain at rest, Denies chest pain with activity, Denies rapid heart rate, Denies pedal edema, Denies edema, Denies leg edema, Denies lightheadedness, Denies palpitations, Denies dyspnea, Denies dyspnea on exertion and Denies orthopnea Resp Denies cough, Denies dyspnea and Denies dyspnea on exertion GI Denies hematochezia and Denies change in stool character Musc Denies abnormal gait, Denies limited range of motion, Denies muscle cramps, Denies muscle weakness, Denies numbness, Denies radiating pain into limb, Denies stiffness and Denies tingling Neuro Denies abnormal gait, Denies dizziness, Denies numbness and Denies tingling Endo Reports fatigue and Denies palpitations Physical Exam Vital Signs: Last Vital Signs Pulse 58 02/21/25 09:58 BP 148/72 H 02/21/25 09:58 BMI result Body Mass Index 24.6 Const General: cooperative, healthy appearing, comfortable and no acute distress Orientation/consciousness: patient oriented x3 Neck Neck: Yes normal visual inspection and Yes no JVD Resp Effort & Inspection: normal respiratory effort Auscultation: clear to auscultation bilaterally, no rales, no rhonchi and no wheezes Cardio Rate: regular rate Rhythm: regular rhythm Heart sounds: S1 normal heart sound present, S2 normal heart sound present, no gallops, no murmurs and no rubs Neuro General: patient oriented x3 Extrem General: Yes normal to inspection, No no pedal edema and No calf tenderness Psych Appearance: grossly normal Mental Status: mental status grossly normal Speech and movement: Normal speech and movement present Assessment & Plan Assessment & Plan (1) Abnormal EKG: Code(s): R94.31 - Abnormal electrocardiogram [ECG] [EKG] Category: Medical Plan: EKG shows findings of septal Q-wave. No known cardiac history. Cardiac risk of age, hypertension. She underwent an echocardiogram on 01/26/2025 showing EF 60-65%, no valve abnormalities. A stress echocardiogram 02/15/2025 with exercise nearly 6 minutes with no symptoms, no EKG changes and no echo evidence of ischemia, diastolic dysfunction. Test results reviewed with her in detail. Cardiac risk factor modification reviewed. Need for good blood pressure control discussed. She is following with Dr. Nichols, nephrology and adds that she is currently not satisfied with how she is feeling. She will discuss this with him at her appointment later this week. No medication changes made. (2) Hypertension: Code(s): I10 - Essential (primary) hypertension Category: Medical Qualifiers: Hypertension type: primary hypertension Qualified Code(s): I10 - Essential (primary) hypertension Plan: As above, mildly elevated today. She states blood pressures are more elevated in the office. Home blood pressures typically running 130-135 systolic. (3) Palpitation: Code(s): R00.2 - Palpitations Category: Medical Plan: Reports of brief heart palpitations consistent with extrasystole, brief 80. Holter monitor does show sinus rhythm with average heart rate 59, rare SVE, brief runs, 1 nighttime pause 3.8 sec. discussed reduction in caffeinated beverages, get adequate rest, maintain good hydration. She is on diltiazem for her blood pressure. This can help to control atrial arrhythmia. Instructed to call if symptoms increase. Cardiology follow-up 6 months for this reason, sooner if needed (4) PAC (premature atrial contraction): Code(s): I49.1 - Atrial premature depolarization Category: Medical Plan: As above (5) Fatigue: Code(s): R53.83 - Other fatigue Category: Medical Plan: She reports having a problem of chronic fatigue and fullness in her head as well as pulsating tinnitus. She believes the medications are contributing to these symptoms. Her Holter monitor did show a 3.2nd pause during sleep hour. She has no concerns for sleep apnea. Suggested home sleep study for further evaluation and she declines. Plan Time spent on chart review, documentation, interview and assessment Coding Level of Care Code Est Pt Level 3 (25735) Complex EM visit Add On G2211 Diagnoses Abnormal EKG R94.31 Primary hypertension I10 Hypertension type: primary hypertension Palpitation R00.2 PAC (premature atrial contraction) I49.1 Fatigue R53.83 Time Spent (min) 24
--- OUTSIDE RECORDS SUMMARY | 2025-02-21 10:29 | XMS_ITS ---
Author Organization Spencer Stanley MD Address [address] [place] [phone] Care Team Providers Care Grain Unloader Name Role Phone Spencer Stanley Primary Care Provider [phone] REASON FOR VISIT several issues Encounters Encounter Location Date Provider Diagnosis Spencer Stanley MD [address] [place] [address] [address] [place] [phone] 02/14/2025 Spencer Stanley Plan Of Treatment Next Appt Details Provider Name:Spencer correa, 02/23/2025 02:15:00 PM, [address] [place] [address], [address], [phone], Provider Name:Spencer correa, 04/13/2025 10:15:00 AM, [address] [place] [address], [address], [phone], Provider Name:Spencer Mccullough ier, 01/08/2026 07:30:00 AM, [address], [address], [place], [phone], Provider Name:Spencer Mccullough ier, 01/15/2026 09:30:00 AM, [address], [address], [place], [phone], Progress Notes * Maday ARBOLEDA MDOB:[birth year] (74 yo F)Acc No.[id number]:02/14/2025 Patient:?Maday ARBOLEDA :1950???Age:74 Y???Sex:Female Address:[address] [place] [address] [place] [address] * true * Date:? Generated for Shimai edgar/Jameson/eTransmitting on:?02/21/2025 10:29 AM EDT
--- OUTSIDE RECORDS SUMMARY | 2025-02-21 10:29 | XMS_ITS ---
Author Organization Spencer Stanley MD Address [address] [place] [phone] Care Team Providers Care Global Supply Chain Director Name Role Phone Spencer Stanley Primary Care Provider REASON FOR VISIT US ABD orders Encounters Encounter Location Date Provider Diagnosis Spencer Stanley MD [address] [place] [address] [address] [place] [phone] 01/20/2025 Spencer Stanley Plan Of Treatment Next Appt Details Provider Name:Spencer correa, 02/23/2025 02:15:00 PM, [address] [place] [address], [address], [phone], Provider Name:Spencer correa, 04/13/2025 10:15:00 AM, [address] [place] [address], [address], [phone], Provider Name:Spencer Mccullough ier, 01/08/2026 07:30:00 AM, [address], [address], [place], [phone], Provider Name:Spencer Mccullough ier, 01/15/2026 09:30:00 AM, [address], [address], [place], [phone], Progress Notes * Maday ARBOLEDA MDOB:[birth year] (74 yo F)Acc No.[id number]:01/20/2025 Patient:?Maday ARBOLEDA M :1950???Age:74 Y???Sex:Female Address:[address] [place] [address] [place] [address] * true * Date:? Generated for Kwaku hernández/Jameson/eTransmitting on:?02/21/2025 10:28 AM EDT
--- OUTSIDE RECORDS SUMMARY | 2025-02-21 10:30 | XMS_ITS | Patient Health Record ---
Author Organization [facility] Address [address] [facility] [place] [address] Care Team Providers Care Catheterization Laboratory Technician Name Role Phone Spencer Stanley MD Primary Care Provider Sarabjit Caballero Unavailable [phone] Allergies Allergen (clinical drug ingredient) Drug/Non Drug [...] W/U Status Risk Notes Problem Plantar wart (15478929) Plantar wart (B07.0) Active confirmed Problem 669030953 Onychomycosis (B35.1) Active confirmed Vital Signs Blood pressure diastolic 80 mm Hg 11/15/2024 Height 5 ft 4 in in 11/15/2024 Blood pressure systolic 120 mm Hg 11/15/2024 Weight 142 lbs 11/15/2024 BMI 24.37 kg/m2 11/15/2024 Procedures Procedure Date Ordered Date Performed Result Body Sit e 04800-SQVYVLH NAIL, 1-11/15/2024 N/A 14668-Dadm Destruction, -11/15/2024 N/A Encounters Encounter Location Date Provider Diagnosis [facility] [address] 11/15/2024 Sarabjit Manriquez Pain in left toe(s) M79.675 ; Onychomycosis B35.1 ; Right foot pain M79.671 ; Plantar wart B07.0 ; Pain in right ankle and joints of right foot M25.571 ; Bursitis of intermetatarsal bursa of right foot M77.51 and Metatarsalgia, right foot M77.41 [facility] [address] 11/15/2024 [facility]jit Manriquez [facility] [address] 11/17/2024 Sarabjit Manriquez Assessments Encounter Date Diagnosis [...] X ray : Foot, right 3V 09/25/2022 84731-HTQMBRF NAIL, 1-5 11/15/2024 35532-Kner Destruction, 1-14 11/15/2024 26437-Zjfzkuzk Plate 12/08/2017 88306- Debride <25 sq cm 12/25/2017 Insurance Providers Payer Name Payer Address Payer Phone Subscriber Number Group Number Insured Name Patient Relationship to Insured Coverage Start Date Coverage End Date Medicare National [employer] [address] [place] [address] [id number] Maday Draper Self - patient is the insured [facility] [facility] [address] [place] [address] [id number] Maday Draper Self - patient is the insured Medical (General) History Medical History History ICD Code Diverticulosis Measles Mumps Chicken pox Osteoporosis Reflux ( GERD) Hypertension Elevated LFTs Vitamin D deficiency Hypercalciuria Tubular adenoma of colon Cataracts Surgical History Surgery Date(Month/Year) hysterectomy 1986 hammer toe 1998
--- OUTSIDE RECORDS SUMMARY | 2025-02-21 10:30 | XMS_ITS ---
Author Organization [facility] Address [address] [place] [address] Care Team Providers Care Broke Beater Machine Operator Name Role Phone Spencer Stanley MD Primary Care Provider Sarabjit Caballero [phone] REASON FOR VISIT 38 pedags Encounters Encounter Location Date Provider Diagnosis [facility] [address] [place] [address] 11/17/2024 Sarabjit Manriquez Plan Of Treatment No Information Progress Notes * Maday ARBOLEDA MDOB:[birth year] (74 yo F)Acc No.[id number]:11/17/2024 Patient:?Maday ARBOLEDA :1950???Age:74 Y???Sex:Female Address:[place] [address] * true * Date:? Generated for Printi edgar/Jameson/eTransmitting on:?02/21/2025 10:30 AM EDT
--- OUTSIDE RECORDS SUMMARY | 2025-02-21 10:30 | XMS_ITS | Patient Health Record ---
Author Organization [facility] Address [address] [place] [address] Care Team Providers Care Copra Processor Name Role Phone Spencer Stanley MD Primary Care Provider Dany Regan Unavailable [phone] Allergies Allergen (clinical drug ingredient) Drug/Non Drug Allergy documented on EMR Reaction Allergy Type Onset Date Status tetracycline Tetracycline HCl Unknown Drug Allergy Active Lidocaine Unknown Drug Allergy Active Reason For [...] Problem Status W/U Status Risk Notes Problem 9208548 Diverticulitis o f large intestine without perforation or abscess without bleeding (K57.32) Active confirmed Problem 966049176 Encounter for screening for malignant neoplasm of colon (Z12.11) Active confirmed Problem 163582685 Gastroesophageal reflux disease without esophagitis (K21.9) Active confirmed Problem 775038186 Elevated liver enzymes (R74.8) Active confirmed Problem Diverticulitis of colon (097170387) Diverticulitis of colon (K57.32) Active confirmed Problem 324745578 NSAID long-term use (Z79.1) Active confirmed Problem 502353101 Hx of adenomatou s colonic polyps (Z86.010) Active confirmed Vital Signs Blood pressure diastolic 11 mm Hg 12/06/2024 Height 63.75 in 12/06/2024 Blood pressure systolic 111 mm Hg 12/06/2024 Weight 136 lbs 12/06/2024 BMI 23.53 kg/m2 12/06/2024 Encounters Encounter Location Date Provider Diagnosis [facility] [address] [place] [address] 12/06/2024 Dany Willis Diverticulitis of co laya K57.32 Assessments Encounter Date Diagnosis (ICD Code) Assessment Notes Treatment Notes Treatment Clinical Notes Section Notes 12/06/2024 Diverticulitis of colon (ICD-10 - K57.32) Repeat colonoscopy in 04/2026 Go on a liquid diet for 1 or 2 days if the diverticulitis flares up, but definitely go on antibiotics if not getting better Need [facility] CT scan in 2023 Overall, [...] Date MEDICARE OF [place] [address] [place] [address] [id number] MADAY ARBOLEDA Self - patient is the insured [employer] CLAIM[employer] [address] [place] [phone] [id number] ROBLESMADAY Self - patient is the insured [...] tubular adenoma Diverticulitis 2023--had a CT at [facility] Surgical History Surgery Date(Month/Year) Hammer toe Hysterectomy w/removal of 1 ovary
--- OUTSIDE RECORDS SUMMARY | 2025-02-21 10:31 | XMS_ITS ---
Author Organization Spencer Stanley MD Address [address] [place] [phone] Care Team Providers Care Project Builder Name Role Phone Spencer Stanley Primary Care [...] t Reviewed date:01/12/2025 11:52:13 AM Interpretation: Performing Lab:[facility], [address] [place] [place] [phone] Notes/Report: Urine, Clean Catch Color Urine Yellow Appearance Urine Clear PH 6.5 5.0-9.0 Glucose Urine UA Negative Negative mg/dL Urine Blood Negative Negative Specific [place] - Urine 1.010 1.005-1.025 Urine Protein Negative [...] 20 MG TAKE 1 CAPSULE BY [place] [facility] EVERY DAY 30 MINUTES BEFORE [...] day Active Finacea 15 % 1 application Student Support Counselor ally ONCE A DAY IN THE EVENING [...] Risk Notes Problem Macrocytosis - no anemia (621119479) Macrocytosis without anemia (D75.89) Active confirmed Vital Signs Blood pressure systolic 144 mm Hg 01/13/20 25 Blood pressure diastolic 72 mm Hg 025 Height 64 in 01/12/2025 Weight 141 lbs 01/12/2025 BMI 24.2 kg/m2 01/12/2025 Encounters Encounter Location Date Provider Diagnosis Spencer Stanley MD [address] [place] [address] [place] [phone] 01/12/2025 Spencer Stanley Essential hypertension I10 ; [...] Up: 3 Months, Reason: Provider Name:Spencer correa, 02/23/2025 02:15:00 PM, [address], [address], [place], [phone], Provider Name:Spencer Gerson Jamel correa, 04/13/2025 10:15:00 AM, [address], [address], [place], [phone], Provider Name:Spencer correa, 01/08/2026 07:30:00 AM, [address], [address], [place], [phone], Provider Name:Spencer Gerson Jamel correa, 01/15/2026 09:30:00 AM, [address] [facility], [address] [facility], [place], [phone], Progress Notes * Maday ARBOLEDA MDOB:[birth year] (74 yo F)Acc No.[id number]:01/12/2025 Patient:?Maday ARBOLEDA Provider:?Spencer Stanley MD :1950???Age:74 Y???Sex:Female D ate:01/12/2025 Address:[address] [place] [address] [place] [id number] Subjective: * Chief Complaints: * ???COMP EXAM [...] Direct 0.2 0.0 -0.5 - mg/dL ???Lab:[facility] [place]. P estrellita Fast (Order 01/05/2025) (Collection Date [...] masses palpable, stool guaiac negative.?FEMALE GENITOURINARY:?done by flake cutter operator.?EXTREMITIES:?no clubbing, cyanosis, or edema.?NEUROLOGIC:?nonfocal, motor strength [...] negative??6.?Depression screening? Notes: negtive screen?? * Procedure Codes:?19509 TEST FOR BLOOD, FECES * Follow Up:?3 Months * * Sign off status: Completed true * Provider:?Spencer Stanley MD Date:?0 01/12/2025 Generated for Kwaku hernández/Jameson/eTransmitting on:?02/21/2025 10:31 AM EDT History and Physical Notes * [...] stool guaiac negative FEMALE GENITOURINARY: done by flake cutter operator ORAL CAVITY: mucosa moist
--- OUTSIDE RECORDS SUMMARY | 2025-02-21 10:31 | XMS_ITS | Patient Health Record ---
Author Organization Spencer tSanley MD Address [address] [place] [address] [phone] Care Team Providers Care Acrobatic Rigger Name Role Phone Spencer Stanley Primary Care Provider Allergies Allergen (clinical drug ingredient) Drug/Non Drug Allergy documented on EMR Reaction Allergy Type Onset Date Status epinephrine (uncoded) heart palpitations Allergy Active tetracycline tetracycline (uncoded) rash Allergy Active Results Component Value Reference Range Notes Sodium Reviewed date:06/20/2024 12:38:09 PM Interpretation: Performing Lab:[facility], [address] [place] [phone] Notes/Report: Sodium 136 135-145 mmol/L Sodium Reviewed date:07/22/2024 03:46:24 PM Interpretation: Performing Lab:[facility], [address] [place] [phone] Notes/Report: Sodium 130 135-145 mmol/L Complete Blood Count Auto Di ff Reviewed date:01/05/2025 04:35:02 PM Interpretation: Performing Lab:[facility], [address] [place] [phone] Notes/Report: White Blood Count 5.0 4.8-10.8 X10*3/uL [...] NRBC Abs Auto 0.000 0.0-0.012 X10*3/uL Comprehensive [place]. Panel Fa st Reviewed date:01/05/2025 12:43:17 PM Interpretation: Performing Lab:[facility], [address] [place] [phone] Notes/Report: Sodium 140 135-145 mmol/L Potassium 4.1 [...] Panel Reviewed date:01/05/2025 12:43:41 PM Interpretation: Performing Lab:[address] [phone] Notes/Report: Bilirubin Direct 0.2 0.0-0.5 mg/dL Lipid Panel Reviewed date:01/05/2025 12:43:26 PM Interpretation: Performing Lab:[address] [phone] Notes/Report: Triglycerides 59 <150 mg/dL Desirable Triglyceride: [...] Total Reviewed date:01/05/2025 12:43:34 PM Interpretation: Performing Lab:[facility], [address] [place] [phone] Notes/Report: Vitamin D 25-OH Total 62.4 >30 [...] confirmed with another method such as LC-MS/MS. Urinalysis and Microscopic Reviewed date:06/24/2024 12:19:06 PM Interpretation: Performing Lab:[facility], [address] [place] [phone] Notes/Report: Color Urine Yellow Appearance Urine Clear PH 6.0 5.0-9.0 Glucose Urine UA Negative Negative mg/dL Urine Blood Negative Negative Specific [facility] - Urine 1.010 1.005-1.025 Urine Protein Negative Neg-Trace mg/dL Urine Ketones Negative Negative mg/dL Nitrite Urine Negative Negative Leukocyte Esterase Urine Trace Negative RBC Urine 0-2 0-2 /HPF WBC Urine 0-5 0-5 /HPF Squamous Epithelial Cell Urine 0-2 0-2 /HPF Bacteria Urine None Seen None Seen Hyaline Casts Urine 0-2 0-2 /LPF Urine Culture Reviewed date:06/26/2024 06:31:44 PM Interpretation: Performing Lab:[facility], [address] [place] [phone] Notes/Report: Urine Culture No growth. Complete Blood Count Auto Di ff Reviewed date:06/30/2024 04:04:48 PM Interpretation: Performing Lab:[facility], [address] [place] [phone] Notes/Report: White Blood Count 9.4 4.8-10.8 X10*3/uL [...] Nitrogen Reviewed date:06/30/2024 04:03:45 PM Interpretation: Performing Lab:[address] [phone] Notes/Report: Blood Urea Nitrogen 10 9-16 mg/dL Sodium Reviewed date:09/01/2024 12:26:42 PM Interpretation: Performing Lab:[address] [phone] Notes/Report: Sodium 137 135-145 mmol/L Occult Blood, Stool, Guaiac Reviewed date:01/12/2025 10:30:48 AM Interpretation:Negative Performing Lab: Notes/Report: Negative Occult Blood, Stool, Guaiac Neg UA ClnCatch+Micro w/rflx Cul t Reviewed date:01/12/2025 11:52:13 AM Interpretation: Performing Lab:[facility], [address] [place] [phone] Notes/Report: Urine, Clean Catch Color Urine Yellow Appearance Urine Clear PH 6.5 5.0-9.0 Glucose Urine UA Negative Negative mg/dL Urine Blood Negative Negative Specific [facility] - Urine 1.010 1.005-1.025 Urine Protein Negative Neg-Trace mg/dL Urine Ketones Negative Negative mg/dL Nitrite Urine Negative Negative Leukocyte Esterase Urine Negative Negative RBC Urine 0-2 0-2 /HPF WBC Urine 0-5 0-5 /HPF Squamous Epithelial Cell Urine 0-2 0-2 /HPF Bacteria Urine None Seen None Seen Hyaline Casts Urine 0-2 0-2 /LPF Sodium Reviewed date:04/12/2024 12:45:35 PM Interpretation: Performing Lab:[facility], [address] [place] [phone] Notes/Report: Sodium 131 135-145 mmol/L Creatinine Reviewed date:06/30/2024 04:03:53 PM Interpretation: Performing Lab:[facility], [address] [place] [phone] Notes/Report: Creatinine 0.73 0.5-1.4 mg/dL Estimated Glomerular Filt Rate > 60 NOTE: For -[place] individuals, multiply the result by 1.210. Chronic Kidney Disease: Estimated GFR < 60 mL/min/1.73m2 Severe Kidney Disease: Estimated GFR < 15 mL/min/1.73m2 Electrolytes Reviewed date:09/22/2024 06:06:11 PM Interpretation: Performing Lab:[facility], [address] [place] [phone] Notes/Report: Sodium 137 135-145 mmol/L Potassium 4.4 3.3-5.1 mmol/L Chloride 105 96-108 mmol/L Carbon Dioxide 29 22-29 mmol/L Anion Gap 7 12-20 Uric Acid Reviewed date:09/22/2024 06:05:36 PM Interpretation: Performing Lab:[facility], [address] [place] [phone] Notes/Report: Uric Acid 2.6 2.4-5.7 mg/dL TSH reflex Free T4 Reviewed date:09/22/2024 06:05:26 PM Interpretation: Performing Lab:[facility], [address] [place] [phone] Notes/Report: TSH reflex Free T4 1.71 0.32-4.0 uIU/mL Aldosterone Reviewed date:10/03/2024 12:34:25 PM Interpretation: Performing Lab:[facility], [address] [place] [phone] Notes/Report: Aldosterone TNP Renin Reviewed date:09/30/2024 04:47:30 PM Interpretation: Performing Lab:[facility], [address] [place] [phone] Notes/Report: Renin 2.86 0.25-5.82 ng/mL/h This test was developed and its analytical performance characteristics have been determined by [facility] [place], [place]. It has not been cleared or approved by the U.S. Food and Drug Administration. This assay has been validated pursuant to the CLIA regulations and is used for clinical purposes. THIS TEST WAS PERFORMED AT: [facility] [address] PAT CUMMINGS MD,PHD Aldost/Renin Reviewed date:10/03/2024 12:35:02 PM Interpretation: Performing Lab:[facility], [address] [place] [phone] Notes/Report: Aldosterone 2 see note ng/dL Unable to flag abnormal result(s), please refer to reference range(s) below: Adult Reference Ranges for Aldosterone, LC/MS/MS: Upright 8:00 - 10:00 am < or = 28 ng/dL Upright 4:00 - 6:00 pm < or = 21 ng/dL Supine 8:00 - 10:00 am 3 - 16 ng/dL THIS TEST WAS PERFORMED AT: [facility] [address] PAT CUMMINGS MD,PHD Plasma Renin Activity 2.58 0.25-5.82 ng/mL/h Aldosterone/Renin Ratio 0.8 0.9-28.9 Ratio This test was developed and its analytical performance characteristics have been determined by [facility] [place], [place]. It has not been cleared or approved by the U.S. Food and Drug Administration. This assay has been validated pursuant to the CLIA regulations and is used for clinical purposes. THIS TEST WAS PERFORMED AT: [facility] [place] [id number] [place] [address] PAT CUMMINGS MD,PHD Metanephrines, Plasma Reviewed date:09/29/2024 05:20:12 PM Interpretation: Performing Lab:[facility], [address] [place] [phone] Notes/Report: Metanephrine, Free 47 <=57 pg/mL This test was developed and its analytical performance characteristics have been determined by [facility] [place], [place]. It has not been cleared or approved by the U.S. Food and Drug Administration. This assay has been validated pursuant to the CLIA regulations and is used for clinical purposes. Normetanephrines, Free 208 <=148 pg/mL This test was developed and its analytical performance characteristics have been determined by [facility] [place] [place]. It has not been cleared or approved by the U.S. Food and Drug Administration. This assay has been validated pursuant to the CLIA regulations and is used for clinical purposes. Total Metanephrine, Free 255 <=205 pg/mL For additional information, please refer to http://education.[employer] [place]/faq/MetFractFree (This link is being provided for informational/educatio [...] analytical performance characteristics have been determined by [facility] [place] [place]. It has not been cleared or approved by the U.S. Food and Drug Administration. This assay has been validated pursuant to the CLIA regulations and is used for clinical purposes. THIS TEST WAS PERFORMED AT: [facility] [address] [place] [address] PAT CUMMINGS MD,PHD Osmolality Urine Reviewed date:09/22/2024 03:17:39 PM Interpretation: Performing Lab:[address] [phone] Notes/Report: Osmolality Urine 323 853-7992 mosm/kg Sodium Urine Random Reviewed date:09/22/2024 12:50:43 PM Interpretation: Performing Lab:[address] [address] Notes/Report: Sodium Urine Random 21.0 Immunofixation Pnl, Serum Reviewed date:09/27/2024 08:14:33 PM Interpretation: Performing Lab:[address] [phone] Notes/Report: IgG 549 833-4744 mg/dL IgA 308 70-320 mg/dL IgM 95 50-300 mg/dL THIS TEST WAS PERFORMED AT: [facility] [address] [address] SARA BARAJAS MD Immunofixation Interpretation SEE NOTE Normal pattern. No monoclonal proteins detected. Cortisol Random Reviewed date:09/22/2024 05:36:07 PM Interpretation: Performing Lab:[address] [phone] Notes/Report: Cortisol Random 11.8 Reference Range*: Before 10 am 6.2-19.4 ug/dL After 5 pm 2.3-11.9 ug/dL *Please interpret above results accordingly. This test was performed using the Boyd chemiluminescent method. Values obtained from different assay methods cannot be used interchangeably. Patients receiving fludrocortisone, prednisolone or prednisone may show artificially elevated cortisol values due to cross-reactivity. Ramos Pichardo Reviewed date:01/05/2025 12:42:55 PM Interpretation: Performing Lab:[address], [place] [address] Notes/Report: Hold Gold See Note Specimen held [...] at their [facility] office [address] Nichols, patient is aware of appt Referral Priority Routine Referral Appointment Date 09/15/2024 Medications Medication SIG (Take, Route, Frequency, Duration) Notes Start Date End Date Status Tylenol 8 Hour Arthritis Pain 650 MG 2 tablets as needed Orally every 8 hrs Not-Taking Omeprazole 20 MG TAKE 1 CAPSULE BY [facility] EVERY DAY 30 MINUTES BEFORE BREAKFAST for 90 Not-Taki ng Melatonin 5 MG 1 tablet at bedtime and a 1mg tablet Orally at bedtime Not-Taking Vitamin D-3 1000 UNIT 1 capsule Orally O nce a day Not-Taking Finacea 15 % 1 application Personal Lines Account Executive ally ONCE A DAY IN THE EVENING [...] Problem Status W/U Status Risk Notes Problem 31781961 Age-related osteoporosis without current pathological fracture (M81.0) Active confirmed Problem 986826704 Acute diverticulitis (K57.92) Active confirmed Problem 093940699 Reflux esophagit is (K21.00) Active confirmed Problem Vitamin D deficiency (16430235) Vitamin D deficiency (E55.9) Active confirmed Problem 384398958 Diverticulitis (K57.92) Active confirmed Problem Chronic frontal sinusitis (32450461) Chronic frontal sinusitis (J32.1) Active confirmed Problem 0830346 Diverticulitis o f large intestine without perforation or abscess without bleeding (K57.32) Active confirmed Problem 030833184 Other specified menopausal and perimenopausal disorders (N95.8) Active confirmed Problem 730630063 Lumbar disc disease (M51.9) Active confirmed Problem 654332352 Elevated LFTs (R79.89) Active confirmed Problem 274657346 Tubular adenoma of colon (D12.6) Active confirmed Problem 54526404 Essential hypertension (I10) Active confirmed Problem Osteoporosis (36721298) Osteoporosis (M81.0) Active confirmed Problem Disorder of female genital organs (551191007) Acute pelvic pain, female (N94.9) Active confirmed Problem 69973517 Oropharyngeal dysphagia (R13.12) Active confirmed Problem 91502710 Peptic ulcer disease (K27.9) Active confirmed Problem 44291984 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 confirmed Problem 881803577 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) Active confirmed Problem Macrocytosis - no anemia (443806454) Macrocytosis without anemia (D75.89) Active confirmed Vital Signs Heart Rate 60 /min 12/13/2024 weight is down 4 pounds since 11-14-24 Blood pressure diastolic 72 mm Hg 01/12/2025 Height 64 in 01/12/2025 Blood pressure systolic 144 mm Hg 01/12/2025 Weight 141 lbs 01/12/2025 BMI 24.2 kg/m2 01/12/2025 Encounters Encounter Location Date Provider Diagnosis Spencer Stanley MD [address] [place] [address] [id number] 04/12/2024 Spencer Stanley Hyponatremia E87.1 Spencer Stanley MD [address] [place] [address] Drive [address] [place] [address] [id number] 06/20/2024 Spencer Celineardier Hyponatremia E87.1 Spencer Stanley MD [address] [place] [address] [id number] 07/22/2024 Spencer Bombardier Hyponatremia E87.1 a nd Encounter for immunization Z23 Spencer Stanley MD [address] [place] [address] [id number] 11/25/2024 Spenceryobany Conneller Essential hypertensi on I10 Spencer Stanley MD [address] [place] [address] [id number] 01/05/2025 Spencer Koer Essential hypertensi on I10 ; Vitamin D deficiency E55.9 and Elevated LFTs R79.89 Spencer Stanley MD [address] [place] [address] [id number] 05/23/2024 Spenceryobany Bergerardier Hyponatremia E87.1 Spencer Stanley MD [address] [place] [address] [id number] 06/24/2024 Spenceryobany Conneller Essential hypertensi on I10 ; Hyponatremia E87.1 ; Atrophy of vagina N95.2 and Dysuria R30.0 Spencer Stanley MD [address] [place] [address] [id number] 06/27/2024 Spenceryobany Bergerardier Acute diverticulitis K57.92 Spencer Stanley MD [address] [place] [address] [id number] 06/30/2024 Spencer Celineardier Acute diverticulitis K57.92 and Encounter for preprocedural laboratory examination Z01.812 Spencer Stanley MD [address] [place] [address] [id number] 08/02/2024 Spenceryobany Bergerardier Acute diverticulitis K57.92 ; Hyponatremia E87.1 and Upper abdominal pain R10.10 Spencer Stanley MD [address] [place] [address] [id number] 08/19/2024 Spencer Jaden Acute diverticulitis K57.92 Spencer Stanley MD [address] [place] [address] [id number] 09/01/2024 Spencer Stanley Hyponatremia E87.1 Spencer Stanley MD [address] [place] [address] [id number] 09/02/2024 Spencer Bombardier Essential hypertensi on I10 and Hyponatremia E87.1 Spencer Stanley MD [address] [place] [address] [id number] 09/08/2024 Spencer Bombardier Essential hypertensi on I10 and Hyponatremia E87.1 Spencer Stanley MD [address] [place] [address] [id number] 09/09/2024 Spencer Bombardier Essential hypertensi on I10 and Hyponatremia E87.1 Spencer Stanley MD [address] [place] [address] [id number] 09/15/2024 Spencer Bombardier Essential hypertensi on I10 and Hyponatremia E87.1 Spencer Stanley MD [address] [place] [address] [id number] 09/22/2024 Spencer Bombardier Essential hypertensi on I10 and Hyponatremia E87.1 Spencer Stanley MD [address] [place] [address] [id number] 10/13/2024 Spencer Bombardier Essential hypertensi on I10 and Hyponatremia E87.1 Spencer Stanley MD [address] [place] [address] [id number] 11/14/2024 Spencer Stanley Viral URI J06.9 Spencer Stanley MD [address] [place] [address] [id number] 12/13/2024 Spencer Bombardier Essential hypertensi on I10 and Abdominal wall pain R10.9 Spencer Stanley MD [address] [place] [address] [id number] 01/12/2025 Spenceryobany Stanley Essential hypertensi on I10 ; Macrocytosis without anemia D75.89 ; Elevated LFTs R79.89 ; Vitamin D deficiency E55.9 ; Colon cancer screening Z12.11 and Depression screening Z13.31 Spencer Stanley MD [address] [place] [address] [id number] 06/24/2024 Spencer Stanley MD [address] [place] [address] [id number] 06/30/2024 Spencer Stanley MD [address] [place] [address] [id number] 09/05/2024 Spencer Stanley MD [address] [place] [address] [id number] 01/09/2025 Spencer Stanley MD [address] [place] [address] [id number] 01/20/2025 Spencer Stanley MD [address] [place] [address] [id number] 02/14/2025 Spencer Stanley Assessments Encounter Date Diagnosis (ICD [...] high 01/05/2025 Essential hypertension (ICD-10 - I10) 05/23/2024 Hyponatremia (ICD-10 - E87.1) pendinglabs, patient [...] - K57.92) pending diagnostic testing/ booked at [facility] 07-01-24 2:30am 06/30/2024 Encounter for preprocedural laboratory [...] started. 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 transformer mechanic 09/22/2024 Hyponatremia (ICD-10 - E87.1) he has [...] already had a negative ct, will observe 01/12/2025 Essential hypertension (ICD-10 - I10) stable, will cntinue current regiment 01/12/2025 Macrocytosis without anemia (ICD-10 - D75.89) will continue to monitor 01/05/2025 Vitamin D deficiency (ICD-10 - E55.9) 06/24/2024 Hyponatremia (ICD-10 - E87.1) will continue to monitor 06/24/2024 Atrophy of vagina (ICD-10 - N95.2) should try the estrogen cream 08/02/2024 Upper abdominal pain (ICD-10 - R10.10) seems that it is just postural 01/12/2025 Elevated LFTs (ICD-10 - R79.89) stable, will continue to monitor 01/05/2025 Elevated LFTs (ICD-10 - R79.89) 06/24/2024 Dysuria (ICD-10 - R30.0) pending labs 01/12/2025 Vitamin D deficiency (ICD-10 - E55.9) stabe, will continue current regiment and will continue to monitor 01/12/2025 Colon cancer screening (ICD-10 - Z12.11) guaiac negative 01/12/2025 Depression screening (ICD-10 - Z13.31) negtive screen Plan Of Treatment Pending Test Test Name Order Date Electrocardiogram (EKG) 12/15/2019 Electrocardiogram (EKG) 10/23/2016 Electrocardiogram (EKG) 12/02/2018 CT ABD & PELVIS WITH CONTRAST 06/30/2024 XR GI SERIES 09/13/2021 BONE DENSITY DEXA 12/15/2019 BONE DENSITY DEXA 06/15/2023 US ABD 09/08/2024 SARS COV2 IGG 04/30/2020 Vitamin B12 and Folate 01/12/2025 MM tomosynthesis screening BI 12/25/2020 XR DEXA axial skeleton 12/25/2020 US venous duplex LE RT 09/13/2021 XR chest 2V 09/22/2022 UA ClnCatch+Micro w/rflx Cult 01/05/2025 Next Appt Details Provider Name:Spencer correa, 02/23/2025 02:15:00 PM, [address] [place] [address], [address], [place], [place], [phone], Provider Name:Spencer Mccullough ier, 04/13/2025 10:15:00 AM, [address], [address], [place], [id number], Provider Name:Spencer Mccullough ier, 01/08/2026 07:30:00 AM, [address], [address], [place], [phone], Provider Name:Spencer Mccullough ier, 01/15/2026 09:30:00 AM, [address], [address], [place], [id number], Insurance Providers Payer Name Payer Address Payer Phone Subscriber Number Group Number Insured Name Patient Relationship to Insured Coverage Start Date Coverage End Date MEDICARE NHIC NOAH [address] [place] [address] [id number] Maday Arboleda Self - patient is the insured MEDEX BCBS OF [facility] [id number] [place] [phone] [id number] Maday Arboleda Self - patient is the insured Medical (General) History Medical History History ICD Code can tolerate doxycycline without difficu lty Refuses flu [id number] colonoscopy 04/2009 - adenoma due in 5 years for upper and lower; colonoscopy and endo done 02/01/[address] Mckinney (repeat 01/2020) hysterectomy (has one ovary); no paps on ly pelvic exam Tinnitus of left ear colonoscopy done 04/29, due in 5 years
--- OUTSIDE RECORDS SUMMARY | 2025-02-21 10:32 | XMS_ITS ---
Author Organization [facility] Address [address] [facility] [facility] [place] [address] Care Team Providers Care Clinical Auditor Name Role Phone Spencer Stanley MD Primary Care Provider Sarabjit Caballero Unavailable [phone] Allergies Allergen (clinical drug ingredient) Drug/Non Drug [...] W/U Status Risk Notes Problem Plantar wart (94588186) Plantar wart (B07.0) Active confirmed Problem 620661464 Onychomycosis (B35.1) Active confirmed Vital Signs Blood pressure systolic 120 mm Hg 11/15/19 25 Blood pressure diastolic 80 mm Hg 025 Height 5 ft 4 in in 11/15/2024 Weight 142 lbs 11/15/2024 BMI 24.37 kg/m2 11/15/2024 Procedures Procedure Date Ordered Date Performed Result Body Sit e 65467-FLHWITX NAIL, 1-11/15/2024 N/A 65971-Bgsa Destruction, 11-2211/15/2024 N/A Encounters Encounter Location Date Provider Diagnosis [facility] [address] [place] [address] 11/15/2024 Sarabjit Manriquez Pain in left toe(s) [...] Treatment Pending Test Test Name Order Date [id number] NAIL, 1-5 11/15/2024 18457-Uhya Destruction, 1-11/15/2024 Next Appt Details Follow Up: prn, Reason: Procedure Notes * Category Sub-Category Detail Notes Wart Treatment Procedure Verruca, as desc ribed in exam, were debrided to pin-point bleeding margins with sterile 15 surgical blade, silver nitrate chemocautery applied, recomm. immune-boosting meds such as zinc, recomm. follow up with topical chemosurgical agents, Pt defers any other forms of tx - 41629 Debride Nails 1-5 Procedure: Due to the [...] necessary to maintain effective symptomatic relief - 84122 Progress Notes * Mdaay ARBOLEDA MDOB:[birth year] (74 yo F)Acc No.[id number]:11/15/2024 Progress Note Patient:?Maday ARBOLEDA Provider:?Sarabjit Manriquez DPM :1950???Age:74 Y???Sex:Female D ate:11/15/2024 Address:[address] [place] [address], [place], [phone] Pcp:Spencer Stanley MD Subjective: * Chief Complaints: [...] work, yoga. ?Marital status: . 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 * Medications:?TakingdilTIAZem HCl ER , Notes to [...] Uncomplicated (3)??? Plan: * Treatment: 2.?Plantar wart?Procedure: 10464-Suln Destruction, 1-14 * Procedures:?Debride Nails 1-5:?Procedure:?Due to [...] necessary to maintain effective symptomatic relief - 48183.?Wart Treatment:?Procedure?Verruca, as described in exam, were debrided to pin-point bleeding margins with sterile 15 surgical blade, silver nitrate chemocautery applied, recomm. immune-boosting meds such as zinc, recomm. follow up with topical chemosurgical agents, Pt defers any other forms of tx - 16226.? * Procedure Codes:?53549 DEBRI DE NAIL, 1-5, Modifiers: XS 60915 Wart Destruction, 1-14, Modifiers: XS 1036F TOBACCO [...] worn until they are using them aircraft time clerk and in all activities. They were asked [...] Manriquez DPM Date:?2024 Generated for Kwaku hernández/Jameson/Yousuf on:?02/21/2025 10:31 AM EDT History and Physical [...]
== END 2025-02-21 10:54 | disposition home or self-care (01) ==
LOC: HO.HCS 09:25
PROVIDERS: PCP Internal Medicine; Visit Provider Nurse Practitioner Family
DX: R94.31 Abnormal electrocardiogram [ECG] [EKG] (principal); I10 Essential (primary) hypertension; R00.2 Palpitations; I49.1 Atrial premature depolarization; R53.83 Other fatigue
CPT/HCPCS: 99213; G2211

== ENCOUNTER → 2025-02-21 09:25 | Outpatient (BNVA) | payer MEDICARE, SELFPAY | PROVIDERS: PCP Internal Medicine; Visit Provider Nurse Practitioner Family | DX: I10 Essential (primary) hypertension (principal); R94.31 Abnormal electrocardiogram [ECG] [EKG]; R00.2 Palpitations; I49.1 Atrial premature depolarization; R53.83 Other fatigue | CPT/HCPCS: 99212 ==

== ENCOUNTER 2025-02-23 11:33 | Outpatient (AMB) | payer MEDICARE, SELFPAY ==
--- NOTE | 2025-02-23 11:47 | HO.NEPHOV_ITS ---
Vital Signs 02/23/25 12:00 Height 5 ft 3 in Weight 138 lb 4 oz BMI 24.5 BP 160/80 H Blood Pressure Location Lt brachial Position Sitting Pulse 64 Pulse Source Pulse Oximeter Pulse Oximetry (%) 98 Oxygen Delivery Method Room Air Intake Visit Reasons: ? Medications- Conf Booking Agent Required: No Accompanied by: Spouse Allergies tetracycline [TETRACYCLINE] Allergy (Unknown, Verified 02/23/25 12:00) Rash, itchy epinephrine Allergy (Unknown, Uncoded 02/21/25 10:01) heart palpitations HPI Comments Details: Maday was seen in follow up for hypertension. She is known to hypertension for a while and has been on hydrochlorothiazide bit she had been taking regularly without much side effects. She also is known to renal calculi. Her blood pressure started getting fluctuant, more so after COVID infection. She had to come off hydrochlorothiazide given hyponatremia, which has normalized now. Subsequently she was started on valsartan and the dose of which was maximized now. She had been tolerating that without much side effects. Her blood pressure control continued to be suboptimal with intermittent resting tachycardia and chest pressure symptoms without any reason. She was started on metoprolol of the time but she developed emotional lability as well as tiredness and it was discontinued. She has been started on 2.5 mg amlodipine at that time. She has been having some headache/ foggy head which she was attributing to amlodipine. She is not known to have any underlying thyroid disorders. She has no history of renal failure, liver disease or heart failure. She has had hyponatremia remotely. She denied any diagnosis of depression but gets anxious at times. She is not known to have any hyperkalemia, edema. She denies drinking excessive fluid or alcohol. She has no history of any malignancy. Diltiazem was eventually added to the regimen but she was not tolerating the higher dose. Dose was reduced recently and she felt better but still complaining about ringing in the ear and variety of unrelated symptoms intermittently . She has seen cardiology. [facility] Medical History Hypertension History of kidney stones Hiatal hernia Osteoporosis GERD (gastroesophageal reflux disease) Surgical History History of blepharoplasty History of hammer toe correction Hx of hysterectomy History of esophagogastroduodenoscopy (EGD) Hx of colonoscopy Family History Mother Hypertension Kidney stone Father Cancer Social History Do you presently have visiting nurse or other home services: No Alcohol intake: never Patient Tobacco Use Status: Former Tobacco user Review of Systems Const All systems reviewed & are unremarkable except as noted in HPI and below Physical Exam Vital Signs: Last Vital Signs Pulse 64 02/23/25 12:00 BP 160/80 H 02/23/25 12:00 Pulse Ox 98 02/23/25 12:00 Oxygen Delivery Method Room Air 02/23/25 12:00 BMI result Body Mass Index 24.5 Const General: comfortable and no acute distress Orientation/consciousness: patient oriented x3 HEENT Head: Yes normocephalic Mouth: Normal oral and palatal mucosa present Eyes EOM: EOMs intact bilaterally Neck Neck: Yes supple Resp Auscultation: clear to auscultation bilaterally Cardio Jugular venous distension: no JVD Rate: regular rate GI Palpation (GI): Soft to palpation Auscultation: normal bowel sounds General: Yes no CVA tenderness Back/Spine/Pelvis Back: no CVA tenderness Skin General skin exam: no rashes or lesions noted Neuro General: patient oriented x3 and moves all extremities Extrem General: Yes no pedal edema Results Reviewed Nephrology Results: Hgb 13.5 g/dl (12.0-16.0) 01/05/25 WBC 5.0 X10*3/uL (4.8-10.8) 01/05/25 Plt Count 272 X10*3/uL (160-400) 01/05/25 Sodium 140 mmol/L (135-145) 01/05/25 Potassium 4.1 mmol/L (3.3-5.1) 01/05/25 Chloride 109 mmol/L (96-108) H 01/05/25 Carbon Dioxide 25 mmol/L (22-29) 01/05/25 BUN 14 mg/dL (9-16) 01/05/25 Creatinine 0.68 mg/dL (0.5-1.4) 01/05/25 Calcium 9.4 mg/dL (8.4-10.2) 01/05/25 Urine Protein Negative mg/dL (Neg-Trace) 01/12/25 Assessment & Plan Assessment & Plan (1) Hypertension: Code(s): I10 - Essential (primary) hypertension Category: Medical Qualifiers: Hypertension type: primary hypertension Qualified Code(s): I10 - Essential (primary) hypertension Plan Maday has longstanding hypertension which is better controlled now. She did not tolerate metoprolol due to development of emotional lability. She is currently on valsartan 320 mg daily. I asked her to keep off hydrochlorothiazide for now. She has history of renal calculi. I tooher off fluid restriction . She has strong family history hypertension. She denied any other vascular risk factors or active vascular disease. She may need Doppler of her renal arteries with time, if needed. I changed her long acting Diltiazem to short acting 60 mg bid in addition to Valsartan 320 mg daily.. She should continue low sodium in the diet. She may need MRI brain/ Neurology consult. Answered all questions. Follow-up appointment given Medications: New diltiazem HCl 60 mg PO BID 60 tabs 3RF 30 days Coding Level of Care Code Est Pt Level 4 (15934) Diagnoses Primary hypertension I10 Hypertension type: primary hypertension
[2025-02-23 12:00] VITALS: BP 160/80; PULSE 64; O2SAT 98; BMI 24.5
--- OUTSIDE RECORDS SUMMARY | 2025-02-23 14:20 | XMS_ITS ---
Author Organization Spencer tSanley MD Address [address] [place] [phone] Care Team Providers Care Property Assistant Name Role Phone Spencer Stanley Primary Care Provider REASON FOR VISIT US ABD orders Encounters Encounter Location Date Provider Diagnosis Spencer Stanley MD [address] [facility] [address] [place] [phone] 01/20/2025 Spencer Stanley Plan Of Treatment Next Appt Details Provider Name:Spencer correa, 04/13/2025 10:15:00 AM, [address] [place] [address], [address], [phone], Provider Name:Spencer correa, 01/08/2026 07:30:00 AM, [address] [place] [address], [address], [phone], Provider Name:Spencer Mccullough madeline, 01/15/2026 09:30:00 AM, [address], [address], [place], [phone], Progress Notes * Maday ARBOLEDA MDOB:[birth year] (74 yo F)Acc No.[id number]:01/20/2025 Patient:?Maday ARBOLEDA :1950???Age:74 Y???Sex:Female Address:[address] [place] [address], [place] [address] * true * Date:? Generated for Kwaku hernández/Jameson/eTransmitting on:?02/23/2025 02:20 PM EDT
--- OUTSIDE RECORDS SUMMARY | 2025-02-23 14:20 | XMS_ITS ---
Author Organization [facility] Address [address] [place] [address] Care Team Providers Care Pump Rebuilder Name Role Phone Spencer Stanley MD Primary Care Provider Dany Regan Unavailable [phone] Allergies Allergen (clinical drug ingredient) Drug/Non Drug Allergy documented on EMR Reaction Allergy Type Onset Date Status tetracycline Tetracycline HCl Unknown Drug Allergy Active Lidocaine Unknown Drug Allergy Active REASON FOR [...] Status Risk Notes Problem Diverticulitis of colon (454274909) Diverticulitis of colon (K57.32) Active confirmed Vital Signs Blood pressure systolic 111 mm Hg 12/06/19 25 Blood pressure diastolic 11 mm Hg 025 Height 63.75 in 12/06/2024 Weight 136 lbs 12/06/2024 BMI 23.53 kg/m2 12/06/2024 Encounters Encounter Location Date Provider Diagnosis [facility] [address] [place] [address] 12/06/2024 Dany Willis Diverticulitis of co laya K57.32 Assessments Encounter Date Diagnosis (ICD Code) Assessment Notes Treatment Notes Treatment Clinical Notes Section Notes 12/06/2024 Diverticulitis of colon (ICD-10 - K57.32) Repeat colonoscopy in 04/2026 Go on a liquid diet for 1 or 2 days if the diverticulitis flares up, but definitely go on antibiotics if not getting better Need [facility] CT scan in 2023 Overall, Maday [...] on antibiotics if not getting better Need [facility] CT scan in 2023 Next Appt Details Follow Up: prn, Reason: Progress Notes * MADAY ARBOLEDADOB:1949 (74 yo F)Acc No.[id number]:12/06/2024 Progress Notes Patient:?MADAY ARBOLEDA Provider:?Dany Willis MD :1950???Age:74 Y???Sex:Female D ate:12/06/2024 Address:[address] [place] [address], [place] [facility] [id number] Pcp:Spencer Stanley MD Subjective: * Chief Complaints: [...] at the time of that episode at [facility] as an outpatient She has not [...] * Treatment: * Procedure Codes:?1036F TOBAC CO NON-[id number] BP SCR NOT PRFRM REC REASON NOS [...] MD Date:? 025 Generated for Kwaku hernández/Jameson/Marilinitting on:?02/23/2025 02:20 PM EDT History and Physical Notes * HPI (History of Present Illness) Category Sub-Category Detail Notes Category Not es incontinence I saw Maday in consultation today in regard to further evaluation of her episodes of diverticulitis and her personal history of tubular adenomas. I last saw aMday in April of 2021, at which time [...] at the time of that episode at [facility] as an outpatient She has not [...]
--- OUTSIDE RECORDS SUMMARY | 2025-02-23 14:21 | XMS_ITS | Patient Health Record ---
Author Organization [facility] Address [address] [facility] [place] [address] Care Team Providers Care Live In Caregiver Name Role Phone Spencer Stanley MD Primary Care Provider Sarabjit Caballero Unavailable [phone] Allergies Allergen (clinical drug ingredient) Drug/Non Drug [...] W/U Status Risk Notes Problem Plantar wart (23276090) Plantar wart (B07.0) Active confirmed Problem [id number] Onychomycosis (B35.1) Active confirmed Vital Signs Blood pressure diastolic 80 mm Hg 11/15/2024 Height 5 ft 4 in in 11/15/2024 Blood pressure systolic 120 mm Hg 11/15/2024 Weight 142 lbs 11/15/2024 BMI 24.37 kg/m2 11/15/2024 Procedures Procedure Date Ordered Date Performed Result Body Sit e 14265-TXJYWWR NAIL, 1-11/15/2024 N/A 65282-Ktvu Destruction, -11/15/2024 N/A Encounters Encounter Location Date Provider Diagnosis [facility] [address] 11/15/2024 Sarabjit Manriquez Pain in left toe(s) M79.675 ; Onychomycosis B35.1 ; Right foot pain M79.671 ; Plantar wart B07.0 ; Pain in right ankle and joints of right foot M25.571 ; Bursitis of intermetatarsal bursa of right foot M77.51 and Metatarsalgia, right foot M77.41 [facility] [address] 11/15/2024 [facility]jit Manriquez [facility] [address] 11/17/2024 Sarabjit Manriquez Assessments Encounter Date Diagnosis [...] X ray : Foot, right 3V 09/25/2022 14813-IYFPGUE NAIL, 1-5 11/15/2024 87788-Aobu Destruction, 1-14 11/15/2024 47257-Vgglzbvo Plate 12/08/2017 63666- Debride <25 sq cm 12/25/2017 Insurance Providers Payer Name Payer Address Payer Phone Subscriber Number Group Number Insured Name Patient Relationship to Insured Coverage Start Date Coverage End Date Medicare National [employer] [address] [place] [address] [id number] Maday Draper Self - patient is the insured [employer] [facility] [address] [place] [address] [id number] Maday Draper Self - patient is the insured Medical (General) History Medical History History ICD Code Diverticulosis Measles Mumps Chicken pox Osteoporosis Reflux ( GERD) Hypertension Elevated LFTs Vitamin D deficiency Hypercalciuria Tubular adenoma of colon Cataracts Surgical History Surgery Date(Month/Year) hysterectomy 1986 hammer toe 1998
--- OUTSIDE RECORDS SUMMARY | 2025-02-23 14:22 | XMS_ITS ---
Author Organization [facility] Address [address] [place] [address] Care Team Providers Care Weed Inspector Name Role Phone Spencer Stanley MD Primary Care Provider Sarabjit Caballero [phone] REASON FOR VISIT 38 pedags Encounters Encounter Location Date Provider Diagnosis [facility] [address] [place] [address] 11/17/2024 Sarabjit Manriquez Plan Of Treatment No Information Progress Notes * Maday ARBOLEDA MDOB:[birth year] (74 yo F)Acc No.[id number]:11/17/2024 Patient:?Maday ARBOLEDA :1950???Age:74 Y???Sex:Female Address:[place] [address] * true * Date:? Generated for Printi edgar/Jameson/eTransmitting on:?02/23/2025 02:21 PM EDT
--- OUTSIDE RECORDS SUMMARY | 2025-02-23 14:22 | XMS_ITS ---
Author Organization [facility] Address [address] [place] [address] Care Team Providers Care Regulatory Submissions Associate Name Role Phone Spencer Stanley MD Primary Care Provider Sarabjit Caballero [phone] REASON FOR VISIT BUY Pedag [employer] (red) #38 / L 8 Encounters Encounter Location Date Provider Diagnosis [facility] [address] [place] [address] 11/15/2024 Sarabjit Manriquez Plan Of Treatment No Information Progress Notes * Maday ARBOLEDA MDOB:[birth year] (74 yo F)Acc No.[id number]:11/15/2024 Patient:?Maday ARBOLEDA :1950???Age:74 Y???Sex:Female Address:[facility] [place] [address] [address] * true * Date:? Generated for Printi ng/Faxing/eTransmitting on:?02/23/2025 02:21 PM EDT
--- OUTSIDE RECORDS SUMMARY | 2025-02-23 14:22 | XMS_ITS | Patient Health Record ---
Author Organization Spencer Stanley MD Address [address] [place] [phone] Care Team Providers Care Gasket Supervisor Name Role Phone Spencer Stanley Primary Care Provider Allergies Allergen (clinical drug ingredient) Drug/Non Drug Allergy documented on EMR Reaction Allergy Type Onset Date Status epinephrine (uncoded) heart palpitations Allergy Active tetracycline tetracycline (uncoded) rash Allergy Active Results Component Value Reference Range Notes Sodium Reviewed date:06/20/2024 12:38:09 PM Interpretation: Performing Lab:[facility], [address] [place] [phone] Notes/Report: Sodium 136 135-145 mmol/L Sodium Reviewed date:07/22/2024 03:46:24 PM Interpretation: Performing Lab:[facility], [address] [place] [phone] Notes/Report: Sodium 130 135-145 mmol/L Complete Blood Count Auto Di ff Reviewed date:01/05/2025 04:35:02 PM Interpretation: Performing Lab:[facility], [address] [place] [phone] Notes/Report: White Blood Count 5.0 4.8-10.8 X10*3/uL [...] NRBC Abs Auto 0.000 0.0-0.012 X10*3/uL Comprehensive [place]. Panel Fa st Reviewed date:01/05/2025 12:43:17 PM Interpretation: Performing Lab:[facility], [address] [place] [phone] Notes/Report: Sodium 140 135-145 mmol/L Potassium 4.1 [...] Panel Reviewed date:01/05/2025 12:43:41 PM Interpretation: Performing Lab:[address] [phone] Notes/Report: Bilirubin Direct 0.2 0.0-0.5 mg/dL Lipid Panel Reviewed date:01/05/2025 12:43:26 PM Interpretation: Performing Lab:[address] [phone] Notes/Report: Triglycerides 59 <150 mg/dL Desirable Triglyceride: [...] Total Reviewed date:01/05/2025 12:43:34 PM Interpretation: Performing Lab:[facility], [address] [place] [phone] Notes/Report: Vitamin D 25-OH Total 62.4 >30 [...] Microscopic Reviewed date:06/24/2024 12:19:06 PM Interpretation: Performing Lab:[facility], [address] [place] [phone] Notes/Report: Color Urine Yellow Appearance Urine Clear PH 6.0 5.0-9.0 Glucose Urine UA Negative Negative mg/dL Urine Blood Negative Negative Specific [place] - Urine 1.010 1.005-1.025 Urine Protein Negative Neg-Trace mg/dL Urine Ketones Negative Negative mg/dL Nitrite Urine Negative Negative Leukocyte Esterase Urine Trace Negative RBC Urine 0-2 0-2 /HPF WBC Urine 0-5 0-5 /HPF Squamous Epithelial Cell Urine 0-2 0-2 /HPF Bacteria Urine None Seen None Seen Hyaline Casts Urine 0-2 0-2 /LPF Urine Culture Reviewed date:06/26/2024 06:31:44 PM Interpretation: Performing Lab:[facility], [address] [place] [phone] Notes/Report: Urine Culture No growth. Complete Blood Count Auto Di ff Reviewed date:06/30/2024 04:04:48 PM Interpretation: Performing Lab:[facility], [address] [place] [phone] Notes/Report: White Blood Count 9.4 4.8-10.8 X10*3/uL [...] Nitrogen Reviewed date:06/30/2024 04:03:45 PM Interpretation: Performing Lab:[address] [phone] Notes/Report: Blood Urea Nitrogen 10 9-16 mg/dL Sodium Reviewed date:09/01/2024 12:26:42 PM Interpretation: Performing Lab:[address] [phone] Notes/Report: Sodium 137 135-145 mmol/L Occult Blood, Stool, Guaiac Reviewed date:01/12/2025 10:30:48 AM Interpretation:Negative Performing Lab: Notes/Report: Negative Occult Blood, Stool, Guaiac Neg UA ClnCatch+Micro w/rflx Cul t Reviewed date:01/12/2025 11:52:13 AM Interpretation: Performing Lab:[facility], [address] [place] [phone] Notes/Report: Urine, Clean Catch Color Urine Yellow Appearance Urine Clear PH 6.5 5.0-9.0 Glucose Urine UA Negative Negative mg/dL Urine Blood Negative Negative Specific [place] - Urine 1.010 1.005-1.025 Urine Protein Negative Neg-Trace mg/dL Urine Ketones Negative Negative mg/dL Nitrite Urine Negative Negative Leukocyte Esterase Urine Negative Negative RBC Urine 0-2 0-2 /HPF WBC Urine 0-5 0-5 /HPF Squamous Epithelial Cell Urine 0-2 0-2 /HPF Bacteria Urine None Seen None Seen Hyaline Casts Urine 0-2 0-2 /LPF Sodium Reviewed date:04/12/2024 12:45:35 PM Interpretation: Performing Lab:[facility], [address] [place] [phone] Notes/Report: Sodium 131 135-145 mmol/L Creatinine Reviewed date:06/30/2024 04:03:53 PM Interpretation: Performing Lab:[facility], [address] [place] [phone] Notes/Report: Creatinine 0.73 0.5-1.4 mg/dL Estimated Glomerular Filt Rate > 60 NOTE: For -Malian individuals, multiply the result by 1.210. Chronic Kidney Disease: Estimated GFR < 60 mL/min/1.73m2 Severe Kidney Disease: Estimated GFR < 15 mL/min/1.73m2 Electrolytes Reviewed date:09/22/2024 06:06:11 PM Interpretation: Performing Lab:[facility], [address] [place] [phone] Notes/Report: Sodium 137 135-145 mmol/L Potassium 4.4 3.3-5.1 mmol/L Chloride 105 96-108 mmol/L Carbon Dioxide 29 22-29 mmol/L Anion Gap 7 12-20 Uric Acid Reviewed date:09/22/2024 06:05:36 PM Interpretation: Performing Lab:[facility], [address] [place] [phone] Notes/Report: Uric Acid 2.6 2.4-5.7 mg/dL TSH reflex Free T4 Reviewed date:09/22/2024 06:05:26 PM Interpretation: Performing Lab:[facility], [address] [place] [phone] Notes/Report: TSH reflex Free T4 1.71 0.32-4.0 uIU/mL Aldosterone Reviewed date:10/03/2024 12:34:25 PM Interpretation: Performing Lab:[facility], [address] [place] [phone] Notes/Report: Aldosterone TNP Renin Reviewed date:09/30/2024 04:47:30 PM Interpretation: Performing Lab:[facility], [address] [place] [phone] Notes/Report: Renin 2.86 0.25-5.82 ng/mL/h This test was developed and its analytical performance characteristics have been determined by [facility] [place], [place]. It has not been cleared or approved by the U.S. Food and Drug Administration. This assay has been validated pursuant to the CLIA regulations and is used for clinical purposes. THIS TEST WAS PERFORMED AT: [facility] [employer] [address] PAT CUMMINGS MD,PHD Aldost/Renin Reviewed date:10/03/2024 12:35:02 PM Interpretation: Performing Lab:[facility], [address] [place] [phone] Notes/Report: Aldosterone 2 see note ng/dL Unable to flag abnormal result(s), please refer to reference range(s) below: Adult Reference Ranges for Aldosterone, LC/MS/MS: Upright 8:00 - 10:00 am < or = 28 ng/dL Upright 4:00 - 6:00 pm < or = 21 ng/dL Supine 8:00 - 10:00 am 3 - 16 ng/dL THIS TEST WAS PERFORMED AT: [facility] [address] PAT CUMMINGS MD,PHD Plasma Renin Activity 2.58 0.25-5.82 ng/mL/h Aldosterone/Renin Ratio 0.8 0.9-28.9 Ratio This test was developed and its analytical performance characteristics have been determined by [facility] [place] [place]. It has not been cleared or approved by the U.S. Food and Drug Administration. This assay has been validated pursuant to the CLIA regulations and is used for clinical purposes. THIS TEST WAS PERFORMED AT: [facility] [address] [place] [address] PAT CUMMINGS MD,PHD Metanephrines, Plasma Reviewed date:09/29/2024 05:20:12 PM Interpretation: Performing Lab:[facility], [address] [place] [phone] Notes/Report: Metanephrine, Free 47 <=57 pg/mL This test was developed and its analytical performance characteristics have been determined by [facility] [place] [place]. It has not been cleared or approved by the U.S. Food and Drug Administration. This assay has been validated pursuant to the CLIA regulations and is used for clinical purposes. Normetanephrines, Free 208 <=148 pg/mL This test was developed and its analytical performance characteristics have been determined by [facility] [place] [place]. It has not been cleared or approved by the U.S. Food and Drug Administration. This assay has been validated pursuant to the CLIA regulations and is used for clinical purposes. Total Metanephrine, Free 255 <=205 pg/mL For additional information, please refer to http://education.[employer].CardioDx/faq/MetFractFree (This link is being provided for informational/educatio [...] analytical performance characteristics have been determined by [facility] [place] [place]. It has not been cleared or approved by the U.S. Food and Drug Administration. This assay has been validated pursuant to the CLIA regulations and is used for clinical purposes. THIS TEST WAS PERFORMED AT: [facility] [address] [place] [address] PAT CUMMINGS MD,PHD Osmolality Urine Reviewed date:09/22/2024 03:17:39 PM Interpretation: Performing Lab:[address] [phone] Notes/Report: Osmolality Urine 898 162-1326 mosm/kg Sodium Urine Random Reviewed date:09/22/2024 12:50:43 PM Interpretation: Performing Lab:[address] [phone] Notes/Report: Sodium Urine Random 21.0 Immunofixation Pnl, Serum Reviewed date:09/27/2024 08:14:33 PM Interpretation: Performing Lab:[address] [phone] Notes/Report: IgG 064 024-9138 mg/dL IgA 308 70-320 mg/dL IgM 95 50-300 mg/dL THIS TEST WAS PERFORMED AT: [facility] [address] [address] SARA BARAJAS MD Immunofixation Interpretation SEE NOTE Normal pattern. No monoclonal proteins detected. Cortisol Random Reviewed date:09/22/2024 05:36:07 PM Interpretation: Performing Lab:[address] [phone] Notes/Report: Cortisol Random 11.8 Reference Range*: Before 10 am 6.2-19.4 ug/dL After 5 pm 2.3-11.9 ug/dL *Please interpret above results accordingly. This test was performed using the Boyd chemiluminescent method. Values obtained from different assay methods cannot be used interchangeably. Patients receiving fludrocortisone, prednisolone or prednisone may show artificially elevated cortisol values due to cross-reactivity. Ramos Pichardo Reviewed date:01/05/2025 12:42:55 PM Interpretation: Performing Lab:[address], [place] [address] Notes/Report: Hold Gold See Note Specimen held [...] PM EST > appt is at their [facility] office [address] [facility] [address] Nichols, patient is aware of appt Referral Priority Routine Referral Appointment Date 09/15/2024 Medications Medication SIG (Take, Route, Frequency, Duration) Notes Start Date End Date Status Tylenol 8 Hour Arthritis Pain 650 MG 2 tablets as needed Orally every 8 hrs Not-Taking Omeprazole 20 MG TAKE 1 CAPSULE BY [facility] EVERY DAY 30 MINUTES BEFORE BREAKFAST for 90 Not-Taki ng Valtrex 500 MG 1 tablet Orally ever y 12 hrs for 10 day(s) Not-Taking Amoxicillin-Pot Clavulanate 875-125 MG 1 tablet Orally every 12 hrs Active dilTIAZem HCl 60 MG as directed Orally Active Finacea 15 % 1 application Judicial Law Clerk ally ONCE A DAY IN THE EVENING [...] Problem Status W/U Status Risk Notes Problem 35289942 Age-related osteoporosis without current pathological fracture (M81.0) Active confirmed Problem 442771813 Acute diverticulitis (K57.92) Active confirmed Problem 032600482 Reflux esophagit is (K21.00) Active confirmed Problem Vitamin D deficiency (94576286) Vitamin D deficiency (E55.9) Active confirmed Problem 802901489 Diverticulitis (K57.92) Active confirmed Problem Chronic frontal sinusitis (43795379) Chronic frontal sinusitis (J32.1) Active confirmed Problem 4478420 Diverticulitis o f large intestine without perforation or abscess without bleeding (K57.32) Active confirmed Problem 030169515 Other specified menopausal and perimenopausal disorders (N95.8) Active confirmed Problem 409015765 Lumbar disc disease (M51.9) Active confirmed Problem 766157032 Elevated LFTs (R79.89) Active confirmed Problem 569094745 Tubular adenoma of colon (D12.6) Active confirmed Problem 42076879 Essential hypertension (I10) Active confirmed Problem Osteoporosis (82430642) Osteoporosis (M81.0) Active confirmed Problem Disorder of female genital organs (463614906) Acute pelvic pain, female (N94.9) Active confirmed Problem 67594984 Oropharyngeal dysphagia (R13.12) Active confirmed Problem 24453454 Peptic ulcer disease (K27.9) Active confirmed Problem 46566461 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 confirmed Problem 585340237 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) Active confirmed Problem Macrocytosis - no anemia (313012602) Macrocytosis without anemia (D75.89) Active confirmed Vital Signs Heart Rate 60 /min 12/13/2024 weight is down 4 pounds since 11-14-24 Blood pressure diastolic 80 mm Hg 02/23/2025 loki ght is down 3 pounds since 01-12-25 Height 64 in 02/23/2025 weight is down 3 pounds since 01-12-25 Blood pressure systolic 178 mm Hg 02/23/2025 weig ht is down 3 pounds since 01-12-25 Weight 138 lbs 02/23/2025 weight is down 3 pounds since 01-12-25 BMI 23.69 kg/m2 02/23/2025 weight is down 3 pounds since 01-12-25 Encounters Encounter Location Date Provider Diagnosis Spencer Stanley MD [address] [place] [address] [id number] 04/12/2024 Spencer Stanley Hyponatremia E87.1 Spencer Stanley MD [address] [place] [address] Drive [address] [place] [address] [id number] 06/20/2024 Spencer Stanley Hyponatremia E87.1 Spencer Stanley MD [address] [place] [address] [id number] 07/22/2024 Spencer Stanley Hyponatremia E87.1 a nd Encounter for immunization Z23 Spencer Stanley MD [address] [place] [address] [id number] 11/25/2024 Spencer Stanley Essential hypertensi on I10 Spencer Stanley MD [address] [place] [address] [id number] 01/05/2025 Spencer Stanley Essential hypertensi on I10 ; Vitamin D deficiency E55.9 and Elevated LFTs R79.89 Spencer Stanley MD [address] [place] [address] [id number] 02/23/2025 Spencer Stanley MD [address] [place] [address] [id number] 05/23/2024 Spencer Stanley Hyponatremia E87.1 Spencer Stanley MD [address] [place] [address] [id number] 06/24/2024 Spencer Stanley Essential hypertensi on I10 ; Hyponatremia E87.1 ; Atrophy of vagina N95.2 and Dysuria R30.0 Spencer Stanley MD [address] [place] [address] [id number] 06/27/2024 Spencer Stanley Acute diverticulitis K57.92 Spencer Stanley MD [address] [place] [address] [id number] 06/30/2024 Spencer Stanley Acute diverticulitis K57.92 and Encounter for preprocedural laboratory examination Z01.812 Spencer Stanley MD [address] [place] [address] [id number] 08/02/2024 Spencer Stanley Acute diverticulitis K57.92 ; Hyponatremia E87.1 and Upper abdominal pain R10.10 Spencer Stanley MD [address] [place] [address] [id number] 08/19/2024 Spencer Stanley Acute diverticulitis K57.92 Spencer Stanley MD [address] [place] [address] [id number] 09/01/2024 Spencer Stanley Hyponatremia E87.1 Spencer Stanley MD [address] [place] [address] [id number] 09/02/2024 Spencer Bombardier Essential hypertensi on I10 and Hyponatremia E87.1 Spencer Stanley MD [address] [place] [address] [id number] 09/08/2024 Spencer Bombardier Essential hypertensi on I10 and Hyponatremia E87.1 Spencer Stanley MD [address] [place] [address] [id number] 09/09/2024 Spencer Bombardier Essential hypertensi on I10 and Hyponatremia E87.1 Spencer Stanley MD [address] [place] [address] [id number] 09/15/2024 Spencer Bombardier Essential hypertensi on I10 and Hyponatremia E87.1 Spencer Stanley MD [address] [place] [address] [id number] 09/22/2024 Spencer Bombardier Essential hypertensi on I10 and Hyponatremia E87.1 Spencer Stanley MD [address] [place] [address] [id number] 10/13/2024 Spencer Bombardier Essential hypertensi on I10 and Hyponatremia E87.1 Spencer Stanley MD [address] [place] [address] [id number] 11/14/2024 Spencer Stanley Viral URI J06.9 Spencer Stanley MD [address] [place] [address] [id number] 12/13/2024 Spencer Bombardier Essential hypertensi on I10 and Abdominal wall pain R10.9 Spencer Stanley MD [address] [place] [address] [id number] 01/12/2025 Spencer Bombardier Essential hypertensi on I10 ; Macrocytosis without anemia D75.89 ; Elevated LFTs R79.89 ; Vitamin D deficiency E55.9 ; Colon cancer screening Z12.11 and Depression screening Z13.31 Spencer Stanley MD [address] [place] [address] [id number] 06/24/2024 Spencer Stanley MD [address] [place] [address] [id number] 06/30/2024 Spencer Stanley MD [address] [place] [address] [id number] 09/05/2024 Spencer Stanley MD [address] [place] [address] [id number] 01/09/2025 Spencer Stanley MD [address] [place] [address] [id number] 01/20/2025 Spencer Stanley MD [address] [place] [address] [id number] 02/14/2025 Spencer Stanley Assessments Encounter Date Diagnosis [...] - K57.92) pending diagnostic testing/ booked at [facility] 07-01-24 2:30am 06/30/2024 Encounter for preprocedural laboratory examination (ICD-10 - Z01.812) 08/02/2024 Acute diverticulitis (ICD-10 - K57.92) referral to dr cmkinney for colonoscopy 08/02/2024 Hyponatremia (ICD-10 - E87.1) [...] started. restart the valsartan/ order faxed to [facility] CS dept, patient verbalized understanding of directions [...] I10) doing much better/ going to see store sales consultant 09/22/2024 Hyponatremia (ICD-10 - E87.1) he has [...] Details Provider Name:Spencer correa, 04/13/2025 10:15:00 AM, [address], [address], [place], [place], [phone], Provider Name:Spencer Mccullough ier, 01/08/2026 07:30:00 AM, [address], [address], [place], [phone], Provider Name:Spencer Mccullough ier, 01/15/2026 09:30:00 AM, [address] [facility], [address], [place], [id number], Insurance Providers Payer Name Payer Address Payer Phone Subscriber Number Group Number Insured Name Patient Relationship to Insured Coverage Start Date Coverage End Date MEDICARE NHIC NOAH [address] [place] [address] [id number] Maday Arboleda Self - patient is the insured MEDEX BCBS OF [facility] [address] [place] [phone] [id number] Maday Arboleda Self - patient is the insured Medical (General) History Medical History History ICD Code can tolerate doxycycline without difficu lty Refuses flu [id number] colonoscopy 04/2009 - adenoma due in 5 years for upper and lower; colonoscopy and endo done 02/01/[address] Mckinney (repeat 01/2020) hysterectomy (has one ovary); no paps on ly pelvic exam Tinnitus of left ear colonoscopy done 04/29, due in 5 years
--- OUTSIDE RECORDS SUMMARY | 2025-02-23 14:23 | XMS_ITS ---
Author Organization Spencer Stanley MD Address [address] [place] [id number] Care Team Providers Care Pie Topper Name Role Phone Spencer Stanley Primary Care Provider [phone] Allergies Allergen (clinical drug ingredient) Drug/Non Drug Allergy documented on EMR Reaction Allergy Type Onset Date Status epinephrine (uncoded) heart palpitations Allergy Active tetracycline tetracycline (uncoded) rash Allergy Active REASON FOR VISIT BP Medications Medication SIG (Take, Route, Frequency, Duration) Notes Start Date End Date Status Amoxicillin-Pot Clavulanate 875-125 MG 1 tablet Orally every 12 hrs Active dilTIAZem HCl 60 MG as directed Orally Active Finacea 15 % 1 application Pilot Captain ally ONCE A DAY IN THE EVENING Active Dilt-XR 120 MG 1 capsule Orally Onc e a day Active Valsartan 320 MG 1 tablet Orally Once a day Active Tylenol 8 Hour Arthritis Pain 650 MG 2 tablets as needed Orally every 8 hrs Not-Taking Omeprazole 20 MG TAKE 1 CAPSULE BY [facility] EVERY DAY 30 MINUTES BEFORE BREAKFAST for 90 Not-Taki ng Valtrex 500 MG 1 tablet Orally ever y 12 hrs for 10 day(s) Not-Taking Vital Signs Blood pressure systolic 178 mm Hg 02/24/20 25 Blood pressure diastolic 80 mm Hg 025 Height 64 in 02/23/2025 Weight 138 lbs 02/23/2025 BMI 23.69 kg/m2 02/23/2025 weight is down 3 pounds [facility] 01-12-25 Encounters Encounter Location Date Provider Diagnosis Spencer Stanley MD [address] [place] [address] [address] [place], [place] [phone] 02/23/2025 Spencer Stanley Plan Of Treatment Next Appt Details Provider Name:Spencer correa, 04/13/2025 10:15:00 AM, [address] [place] [address], Suite [facility], [place], [place], [phone], Provider Name:Spencer correa, 01/08/2026 07:30:00 AM, [address] [place] [address], [address], [place], [place], [phone], Provider Name:Spencer correa, 01/15/2026 09:30:00 AM, [address] [place] [address], [address], [place], [place], [phone], Progress Notes * Maday ARBOLEDA MDOB:[birth year] (74 yo F)Acc No.[id number]:02/23/2025 Progress Notes Patient:?Maday ARBOLEDA Provider:?Spencer Stanley MD :1950???Age:74 Y???Sex:Female D ate:02/23/2025 Address:[address] [place] [address] [facility] Subjective: * Chief Complaints: * ???1. BP. * HPI: ???Symptom(s):? patient is a 74 yo female here for follow up of BP. * ROS:?General/Constitutional:?Denies?Chills.?Denies?Fatigue.?Denies?Fever.?Denies?Headache.?ENT:?Denies?Sore throat.?Respiratory:?Denies?Cough.?Denies?Shortness of breath at rest.?Denies?Shortness of breath with exertion.?Cardiovascular:?Denies?Chest pain at rest.?Denies?Chest pain with exertion.?Denies?Dizziness.?Admits?Palpitations.?Denies?Shortness of breath.?Gastrointestinal:?Denies?Diarrhea.?Denies?Nausea.? * Medical History:?Can tolerat e doxycycline without difficulty, Refuses flu [id number], colonoscopy 04/2009 - adenoma due in 5 years for upper and lower; colonoscopy and endo done 02/01/[address] Willis (repeat 01/2020), Hysterectomy (has one ovary); no paps only pelvic exam, Tinnitus of left ear, Colonoscopy done 04/29, due in 5 years. * Medications:?Taking Amoxicil reuben-Pot Clavulanate 875-125 MG Tablet 1 tablet Orally [...] Heart Palpitations. Objective: * Vitals:?Ht: 64, Wt: 138, BMI :23.69, BP:178/80, Wt-k.6. weight is down 3 pounds since 3-6-25. Assessment: Plan: * Treatment: * * The named appointment provid er may or may not be the originator of this progress note, and it is not deemed complete until electronically signed by the appointment provider. Sign off status: Pending * Provider:?Spencer Stanley MD Date:?0 02/23/2025 Generated for Kwaku hernández/Jameson/Chrissmitting on:?02/23/2025 02:22 PM EDT History and Physical Notes * HPI (History of Present Illness) Category Sub-Category Detail Notes Category Not es Symptom(s) patient is a 74 yo female here for follow up of BP
== END 2025-02-23 12:44 | disposition home or self-care (01) ==
LOC: HO.HKAS 11:33
PROVIDERS: PCP Internal Medicine; Visit Provider Internal Medicine Nephrology
DX: I10 Essential (primary) hypertension (principal)
CPT/HCPCS: 99214

== ENCOUNTER → 2025-02-23 11:33 | Outpatient (BNVA) | payer MEDICARE, SELFPAY | PROVIDERS: PCP Internal Medicine; Visit Provider Internal Medicine Nephrology | DX: I10 Essential (primary) hypertension (principal) | CPT/HCPCS: 99212 ==

== ENCOUNTER 2025-03-08 14:55 | Outpatient (AMB) | payer MEDICARE, SELFPAY ==
--- NOTE | 2025-03-08 15:03 | HO.NEPHOV ---
Vital Signs 03/08/25 15:05 Height 5 ft 3 in Weight 137 lb 6 oz BMI 24.3 BP 166/90 H Blood Pressure Location Rt brachial Position Sitting Pulse 99 Pulse Source Pulse Oximeter Pulse Oximetry (%) 98 Oxygen Delivery Method Room Air Intake Visit Reasons: 2 Weeks-Conf Business Quality Assurance Analyst Required: No Accompanied by: Self / Same As Patient Allergies tetracycline [TETRACYCLINE] Allergy (Unknown, Verified 03/08/25 15:05) Rash, itchy epinephrine Allergy (Unknown, Uncoded 02/21/25 10:01) heart palpitations HPI Comments Details: Maday was seen in follow up for hypertension. She is known to hypertension for a while and has been on hydrochlorothiazide bit she had been taking regularly without much side effects. She also is known to renal calculi. Her blood pressure started getting fluctuant, more so after COVID infection. She had to come off hydrochlorothiazide given hyponatremia, which has normalized now. Subsequently she was started on valsartan and the dose of which was maximized now. She had been tolerating that without much side effects. Her blood pressure control continued to be suboptimal with intermittent resting tachycardia and chest pressure symptoms without any reason. She was started on metoprolol of the time but she developed emotional lability as well as tiredness and it was discontinued. She has been started on 2.5 mg amlodipine at that time. She has been having some headache/ foggy head which she was attributing to amlodipine. She is not known to have any underlying thyroid disorders. She has no history of renal failure, liver disease or heart failure. She has had hyponatremia remotely. She denied any diagnosis of depression but gets anxious at times. She is not known to have any hyperkalemia, edema. She denies drinking excessive fluid or alcohol. She has no history of any malignancy. Diltiazem was eventually added to the regimen but she was not tolerating the higher dose. Dose was reduced recently and she felt better but still complaining about ringing in the ear and variety of unrelated symptoms intermittently . She has seen cardiology. Her dose of short acting Diltiazem was adjusted at the last visit. She still C/O unexplainable intermittent inconsistent symptoms which she tries to attribute to BP medications. She still feels she has intermittent tachycardia and high BP. [facility] Medical History Hypertension History of kidney stones Hiatal hernia Osteoporosis GERD (gastroesophageal reflux disease) Surgical History History of blepharoplasty History of hammer toe correction Hx of hysterectomy History of esophagogastroduodenoscopy (EGD) Hx of colonoscopy Family History Mother Hypertension Kidney stone Father Cancer Social History Do you presently have visiting nurse or other home services: No Alcohol intake: never Patient Tobacco Use Status: Former Tobacco user Review of Systems Const All systems reviewed & are unremarkable except as noted in HPI and below Physical Exam Vital Signs: Last Vital Signs Pulse 99 03/08/25 15:05 BP 166/90 H 03/08/25 15:05 Pulse Ox 98 03/08/25 15:05 Oxygen Delivery Method Room Air 03/08/25 15:05 BMI result Body Mass Index 24.3 Const General: comfortable and no acute distress Orientation/consciousness: patient oriented x3 HEENT Head: Yes normocephalic Mouth: Normal oral and palatal mucosa present Eyes EOM: EOMs intact bilaterally Neck Neck: Yes supple Resp Auscultation: clear to auscultation bilaterally Cardio Jugular venous distension: no JVD Rate: regular rate GI Palpation (GI): Soft to palpation Auscultation: normal bowel sounds General: Yes no CVA tenderness Back/Spine/Pelvis Back: no CVA tenderness Skin General skin exam: no rashes or lesions noted Neuro General: patient oriented x3 and moves all extremities Extrem General: Yes no pedal edema Results Reviewed Nephrology Results: Urine Protein Negative mg/dL (Neg-Trace) 01/12/25 Assessment & Plan Assessment & Plan (1) Hypertension: Code(s): I10 - Essential (primary) hypertension Category: Medical Qualifiers: Hypertension type: primary hypertension Qualified Code(s): I10 - Essential (primary) hypertension Plan Maday has longstanding hypertension. She did not tolerate metoprolol due to development of emotional lability. She is currently on valsartan 320 mg daily. I asked her to keep off hydrochlorothiazide for now. She has history of renal calculi. I took her off fluid restriction . She has strong family history hypertension. She denied any other vascular risk factors or active vascular disease. She may need Doppler of her renal arteries with time, if needed. She can continue Nuyxuemyd06 mg bid in addition to Valsartan 320 mg daily in the morning. I also added carvedilol 6.25 mg for noon and PM. She should continue low sodium in the diet. She may need MRI brain/ Neurology consult if her head symptoms persists. Answered all questions. Follow-up appointment given Medications: New carvedilol 6.25 mg PO BID 60 tabs 3RF Coding Level of Care Code Est Pt Level 4 (55913) Diagnoses Primary hypertension I10 Hypertension type: primary hypertension
[2025-03-08 15:05] VITALS: BP 166/90; PULSE 99; O2SAT 98; BMI 24.3
--- OUTSIDE RECORDS SUMMARY | 2025-03-08 16:01 | XMS_ITS ---
Author Organization [facility] Address [address] [place] [address] Care Team Providers Care Satellite Communications Engineer Name Role Phone Spencer Stanley MD Primary Care Provider Sarabjit Caballero [phone] REASON FOR VISIT 38 pedags Encounters Encounter Location Date Provider Diagnosis [facility] [address] [place] [address] 11/17/2024 Sarabjit Manriquez Plan Of Treatment No Information Progress Notes * Maday ARBOLEDA MDOB:[birth year] (74 yo F)Acc No.[id number]:11/17/2024 Patient:?Maday ARBOLEDA :1950???Age:74 Y???Sex:Female Address:[place] [address] * true * Date:? Generated for Printi edgar/Jameson/eTransmitting on:?03/08/2025 04:01 PM EDT
--- OUTSIDE RECORDS SUMMARY | 2025-03-08 16:01 | XMS_ITS ---
Author Organization [facility] Address [address] [place] [address] Care Team Providers Care Supply Technician Name Role Phone Spencer Stanley MD Primary Care Provider Sarabjit Caballero [phone] REASON FOR VISIT BUY Pedag [employer] (red) #38 / L 8 Encounters Encounter Location Date Provider Diagnosis [facility] [address] [place] [address] 11/15/2024 Sarabjit Manriquez Plan Of Treatment No Information Progress Notes * Maday ARBOLEDA MDOB:[birth year] (74 yo F)Acc No.[id number]:11/15/2024 Patient:?Maday ARBOLEDA :1950???Age:74 Y???Sex:Female Address:[place] [address] * true * Date:? Generated for Printi ng/Faxing/eTransmitting on:?03/08/2025 04:01 PM EDT
--- OUTSIDE RECORDS SUMMARY | 2025-03-08 16:01 | XMS_ITS | Patient Health Record ---
[facility] Address [address] [facility] [place] [address] Care Team Providers Care Director Property Name Role Phone Spencer Stanley MD Primary Care Provider Sarabjit Caballero Unavailable [phone] Allergies Allergen (clinical drug ingredient) Drug/Non Drug [...] W/U Status Risk Notes Problem Plantar wart (54800254) Plantar wart (B07.0) Active confirmed Problem 093834514 Onychomycosis (B35.1) Active confirmed Vital Signs Blood pressure diastolic 80 mm Hg 11/15/2024 Height 5 ft 4 in in 11/15/2024 Blood pressure systolic 120 mm Hg 11/15/2024 Weight 142 lbs 11/15/2024 BMI 24.37 kg/m2 11/15/2024 Procedures Procedure Date Ordered Date Performed Result Body Sit e 36171-FAGQPHX NAIL, 1-11/15/2024 N/A 19560-Kfxm Destruction, -11/15/2024 N/A Encounters Encounter Location Date Provider Diagnosis [facility] [address] 11/15/2024 Sarabjit Manriquez Pain in left toe(s) M79.675 ; Onychomycosis B35.1 ; Right foot pain M79.671 ; Plantar wart B07.0 ; Pain in right ankle and joints of right foot M25.571 ; Bursitis of intermetatarsal bursa of right foot M77.51 and Metatarsalgia, right foot M77.41 [facility] [address] 11/15/2024 Sarabjit Manriquez [facility] [address] 11/17/2024 Sarabjit Manriquez Assessments Encounter Date Diagnosis [...] X ray : Foot, right 3V 09/25/2022 88513-LALWRBQ NAIL, 1-5 11/15/2024 50724-Drhr Destruction, 1-14 11/15/2024 97921-Yljbsggv Plate 12/08/2017 13669- Debride <25 sq cm 12/25/2017 Insurance Providers Payer Name Payer Address Payer Phone Subscriber Number Group Number Insured Name Patient Relationship to Insured Coverage Start Date Coverage End Date Medicare National [employer] [address] [place] [address] [id number] Maday Draper Self - patient is the insured [employer] [facility] [address] [place] [address] [id number] Maday Draper Self - patient is the insured Medical (General) History Medical History History ICD Code Diverticulosis Measles Mumps Chicken pox Osteoporosis Reflux ( GERD) Hypertension Elevated LFTs Vitamin D deficiency Hypercalciuria Tubular adenoma of colon Cataracts Surgical History Surgery Date(Month/Year) hysterectomy 1986 hammer toe 1998
--- OUTSIDE RECORDS SUMMARY | 2025-03-08 16:02 | XMS_ITS ---
Author Organization [facility] Address [address] [facility] [address] Care Team Providers Care Cyber Incident Responder Name Role Phone Spencer Stanley MD Primary Care Provider Sarabjit Caballero Unavailable [phone] Allergies Allergen (clinical drug ingredient) Drug/Non Drug [...] W/U Status Risk Notes Problem Plantar wart (15303496) Plantar wart (B07.0) Active confirmed Problem 048859995 Onychomycosis (B35.1) Active confirmed Vital Signs Height 5 ft 4 in in 11/15/2024 Weight 142 lbs 11/15/2024 BMI 24.37 kg/m2 11/15/2024 Blood pressure systolic 120 mm Hg 11/15/19 25 Blood pressure diastolic 80 mm Hg 025 Procedures Procedure Date Ordered Date Performed Result Body Sit e 51256-QKDRVHA NAIL, 1-11/15/2024 N/A 96941-Uxxk Destruction, 11-2211/15/2024 N/A Encounters Encounter Location Date Provider Diagnosis [facility] [address] [address] 11/15/2024 Sarabjit Manriquez Pain in left toe(s) [...] Treatment Pending Test Test Name Order Date 38398-LSDAMKG NAIL, 1-5 11/15/2024 79303-Pupg Destruction, 1-11/15/2024 Next Appt Details Follow Up: prn, Reason: Procedure Notes * Category Sub-Category Detail Notes Wart Treatment Procedure Verruca, as desc ribed in exam, were debrided to pin-point bleeding margins with sterile 15 surgical blade, silver nitrate chemocautery applied, recomm. immune-boosting meds such as zinc, recomm. follow up with topical chemosurgical agents, Pt defers any other forms of tx - 31784 Debride Nails 1-5 Procedure: Due to the [...] necessary to maintain effective symptomatic relief - 20630 Progress Notes * Maday ARBOLEDA MDOB:[birth year] (74 yo F)Acc No.[id number]:11/15/2024 Progress Note Patient:?Maday ARBOLEDA Provider:?Sarabjit Manriquez DPM :1950???Age:74 Y???Sex:Female D ate:11/15/2024 Address:[address] [place] [address], [place], [id number] Pcp:Spencer Stanley MD Subjective: * Chief Complaints: [...] gardening/yard work, yoga. ?Marital status: . 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 * Medications:?TakingdilTIAZem HCl ER , Notes [...] Uncomplicated (3)??? Plan: * Treatment: 2.?Plantar wart?Procedure: 62401-Ylug Destruction, 1-14 * Procedures:?Debride Nails 1-5:?Procedure:?Due to [...] necessary to maintain effective symptomatic relief - 90219.?Wart Treatment:?Procedure?Verruca, as described in exam, were debrided to pin-point bleeding margins with sterile 15 surgical blade, silver nitrate chemocautery applied, recomm. immune-boosting meds such as zinc, recomm. follow up with topical chemosurgical agents, Pt defers any other forms of tx - 70726.? * Procedure Codes:?88147 DEBRI DE NAIL, 1-5, Modifiers: XS 82434 Wart Destruction, 1-14, Modifiers: XS 1036F TOBACCO [...] time worn until they are using them radio time salesperson and in all activities. They were asked [...] Manriquez DPM Date:?2024 Generated for Kwaku hernández/Jameson/Yousuf on:?03/08/2025 04:01 PM EDT History and Physical Notes * [...]
== END 2025-03-08 15:39 | disposition home or self-care (01) ==
LOC: HO.HKA 14:55
PROVIDERS: PCP Internal Medicine; Visit Provider Internal Medicine Nephrology
DX: I10 Essential (primary) hypertension (principal)
CPT/HCPCS: 99214

== ENCOUNTER → 2025-03-08 14:55 | Outpatient (BNVA) | payer MEDICARE, SELFPAY | PROVIDERS: PCP Internal Medicine; Visit Provider Internal Medicine Nephrology | DX: I10 Essential (primary) hypertension (principal) | CPT/HCPCS: 99212 ==

== ENCOUNTER 2025-03-24 11:18 | Outpatient (AMB) | payer MEDICARE, SELFPAY ==
[2025-03-24 11:31] VITALS: BP 180/90; PULSE 51; O2SAT 97; BMI 24.6
--- NOTE | 2025-03-24 11:31 | HO.NEPHOV ---
Vital Signs 03/24/25 11:31 Height 5 ft 3 in Weight 139 lb BMI 24.6 BP 180/90 H Blood Pressure Location Lt brachial Position Sitting Pulse 51 Pulse Source Pulse Oximeter Pulse Oximetry (%) 97 Oxygen Delivery Method Room Air Intake Visit Reasons: 2 weeks fu-[facility] Bookkeeping Machine Mechanic Required: No Accompanied by: Spouse Allergies tetracycline [TETRACYCLINE] Allergy (Unknown, Verified 03/24/25 11:32) Rash, itchy epinephrine Allergy (Unknown, Uncoded 02/21/25 10:01) heart palpitations HPI Comments Details: Maday was seen in follow up for hypertension. She is known to hypertension for a while and has been on hydrochlorothiazide bit she had been taking regularly without much side effects. She also is known to renal calculi. Her blood pressure started getting fluctuant, more so after COVID infection. She had to come off hydrochlorothiazide given hyponatremia, which has normalized now. Subsequently she was started on valsartan and the dose of which was maximized now. She had been tolerating that without much side effects. Her blood pressure control continued to be suboptimal with intermittent resting tachycardia and chest pressure symptoms without any reason. She was started on metoprolol of the time but she developed emotional lability as well as tiredness and it was discontinued. She has been started on 2.5 mg amlodipine at that time. She has been having some headache/ foggy head which she was attributing to amlodipine. She is not known to have any underlying thyroid disorders. She has no history of renal failure, liver disease or heart failure. She has had hyponatremia remotely. She denied any diagnosis of depression but gets anxious at times. She is not known to have any hyperkalemia, edema. She denies drinking excessive fluid or alcohol. She has no history of any malignancy. Diltiazem was eventually added to the regimen but she was not tolerating the higher dose. Dose was reduced recently and she felt better but still complaining about ringing in the ear and variety of unrelated symptoms intermittently . She has seen cardiology. Her dose of short acting Diltiazem was adjusted at the last visit. She still C/O unexplainable intermittent inconsistent symptoms which she tries to attribute to BP medications. She feels that some of her symptoms are due to Diltiazem [facility] Medical History Hypertension History of kidney stones Hiatal hernia Osteoporosis GERD (gastroesophageal reflux disease) Surgical History History of blepharoplasty History of hammer toe correction Hx of hysterectomy History of esophagogastroduodenoscopy (EGD) Hx of colonoscopy Family History Mother Hypertension Kidney stone Father Cancer Social History Do you presently have visiting nurse or other home services: No Alcohol intake: never Patient Tobacco Use Status: Former Tobacco user Review of Systems Const All systems reviewed & are unremarkable except as noted in HPI and below Physical Exam Vital Signs: Last Vital Signs Pulse 51 03/24/25 11:31 BP 180/90 H 03/24/25 11:31 Pulse Ox 97 03/24/25 11:31 Oxygen Delivery Method Room Air 03/24/25 11:31 BMI result Body Mass Index 24.6 Const General: comfortable and no acute distress Orientation/consciousness: patient oriented x3 HEENT Head: Yes normocephalic Mouth: Normal oral and palatal mucosa present Eyes EOM: EOMs intact bilaterally Neck Neck: Yes supple Resp Auscultation: clear to auscultation bilaterally Cardio Jugular venous distension: no JVD Rate: regular rate GI Palpation (GI): Soft to palpation Auscultation: normal bowel sounds General: Yes no CVA tenderness Back/Spine/Pelvis Back: no CVA tenderness Skin General skin exam: no rashes or lesions noted Neuro General: patient oriented x3 and moves all extremities Extrem General: Yes no pedal edema Results Reviewed Nephrology Results: Urine Protein Negative mg/dL (Neg-Trace) 01/12/25 Assessment & Plan Assessment & Plan (1) Hypertension: Code(s): I10 - Essential (primary) hypertension Category: Medical Qualifiers: Hypertension type: primary hypertension Qualified Code(s): I10 - Essential (primary) hypertension (2) Hyponatremia: Code(s): E87.1 - Hypo-osmolality and hyponatremia Category: Medical Plan Maday has longstanding hypertension. She did not tolerate metoprolol due to development of emotional lability. She is currently on valsartan 320 mg daily. I asked her to keep off hydrochlorothiazide for now. She has history of renal calculi. She is off fluid restriction . She has strong family history hypertension. She denied any other vascular risk factors or active vascular disease. She may need Doppler of her renal arteries with time, if needed. She can continue Diltiazem 30 mg bid in addition to Valsartan 320 mg daily in the morning. I increased her carvedilol to 12.5 mg for noon and PM. She should continue low sodium in the diet. She may need MRI brain/ Neurology consult if her head symptoms persists. Answered all questions. Follow-up appointment given Medications: Changed From carvedilol 6.25 mg PO BID 60 tabs 3RF To carvedilol 12.5 mg (2 x 6.25 mg) PO BID 60 tabs 3RF Coding Level of Care Code Est Pt Level 4 (86646) Diagnoses Primary hypertension I10 Hypertension type: primary hypertension Hyponatremia E87.1
--- OUTSIDE RECORDS SUMMARY | 2025-03-24 11:40 | XMS_ITS | Patient Health Record ---
Author Organization [facility] Address [address] [place] [address] Care Team Providers Care Bond Trader Name Role Phone Spencer Stanley MD Primary Care Provider Dany Regan Unavailable [phone] Allergies Allergen (clinical drug ingredient) Drug/Non Drug [...] Problem Status W/U Status Risk Notes Problem 5238594 Diverticulitis o f large intestine without perforation or abscess without bleeding (K57.32) Active confirmed Problem 457950669 Encounter for screening for malignant neoplasm of colon (Z12.11) Active confirmed Problem 976551581 Gastroesophageal reflux disease without esophagitis (K21.9) Active confirmed Problem 755871454 Elevated liver enzymes (R74.8) Active confirmed Problem Diverticulitis o f colon (K57.32) Active confirmed Problem 686203448 NSAID long-term use (Z79.1) Active confirmed Problem 148823582 Hx of adenomatou s colonic polyps (Z86.010) Active confirmed Vital Signs Blood pressure diastolic 11 mm Hg 12/06/2024 Height 63.75 in 12/06/2024 Blood pressure systolic 111 mm Hg 12/06/2024 Weight 136 lbs 12/06/2024 BMI 23.53 kg/m2 12/06/2024 Encounters Encounter Location Date Provider Diagnosis [facility] [address] [place] [address] 12/06/2024 Dany Willis Diverticulitis of co laya K57.32 Assessments Encounter Date Diagnosis (ICD Code) Assessment Notes Treatment Notes Treatment Clinical Notes Section Notes 12/06/2024 Diverticulitis of colon (ICD-10 - K57.32) Repeat colonoscopy in 04/2026 Go on a liquid diet for 1 or 2 days if the diverticulitis flares up, but definitely go on antibiotics if not getting better Need [facility] CT scan in 2023 Overall, Maday [...] Date MEDICARE OF [place] [address] [facility] [place] [address] [id number] MADAY ARBOLEDA Self - patient is the insured [employer] ATT[employer] CLAIMS [address] [place] [address] [id number] ROBLESMADAY ONEIL Self - patient is the insured Medical [...] tubular adenoma Diverticulitis 2023--had a CT at [facility] Surgical History Surgery Date(Month/Year) Hammer toe Hysterectomy w/removal of 1 ovary
--- OUTSIDE RECORDS SUMMARY | 2025-03-24 11:40 | XMS_ITS ---
Author Organization Spencer Stanley MD Address [address] [place] [phone] Care Team Providers Care Pattern Mechanic Name Role Phone Spencer Stanley Primary Care Provider REASON FOR VISIT US ABD orders Encounters Encounter Location Date Provider Diagnosis Spencer Stanley MD [address] [facility] [address] [place] [phone] 01/20/2025 Spencer Stanley Plan Of Treatment Next Appt Details Provider Name:Spencer correa, 04/13/2025 10:15:00 AM, [address] [place] [address], [address], [phone], Provider Name:Spencer correa, 01/08/2026 07:30:00 AM, [address] [place] [address], [address], [phone], Provider Name:Spencer Mccullough madeline, 01/15/2026 09:30:00 AM, [address], [address], [place], [phone], Progress Notes * Maday ARBOLEDA MDOB:[birth year] (74 yo F)Acc No.[id number]:01/20/2025 Patient:?Maday ARBOLEDA :1950???Age:74 Y???Sex:Female Address:[address] [place] [address], [place] [address] * true * Date:? Generated for Kwaku hernández/Jameson/eTransmitting on:?03/24/2025 11:39 AM EDT
--- OUTSIDE RECORDS SUMMARY | 2025-03-24 11:40 | XMS_ITS ---
Author Organization [facility] Address [address] [place] [address] Care Team Providers Care Solution Make Up Operator Name Role Phone Spencer Stanley MD Primary Care Provider Sarabjit Caballero [phone] REASON FOR VISIT 38 pedags Encounters Encounter Location Date Provider Diagnosis [facility] [address] [place] [address] 11/17/2024 Sarabjit Manriquez Plan Of Treatment No Information Progress Notes * Maday ARBOLEDA MDOB:[birth year] (74 yo F)Acc No.[id number]:11/17/2024 Patient:?Maday ARBOLEDA :1950???Age:74 Y???Sex:Female Address:[place] [address] * true * Date:? Generated for Printi edgar/Jameson/eTransmitting on:?03/24/2025 11:40 AM EDT
--- OUTSIDE RECORDS SUMMARY | 2025-03-24 11:40 | XMS_ITS ---
Author Organization Spencer Stanley MD Address [address] [place] [phone] Care Team Providers Care Food Runner Name Role Phone Spencer Stanley Primary Care Provider REASON FOR VISIT several issues Encounters Encounter Location Date Provider Diagnosis Spencer Stanley MD [address] [place] [address] [place] [phone] 02/14/2025 Spencer Stanley Plan Of Treatment Next Appt Details Provider Name:Spencer correa, 04/13/2025 10:15:00 AM, [address] [place] [address], [address], [phone], Provider Name:Spencer correa, 01/08/2026 07:30:00 AM, [address] [place] [address], [address], [phone], Provider Name:Spencer Mccullough madeline, 01/15/2026 09:30:00 AM, [address], [address], [place], [phone], Progress Notes * Maday ARBOLEDA MDOB:[birth year] (74 yo F)Acc No.[id number]:02/14/2025 Patient:?Maday ARBOLEDA :1950???Age:74 Y???Sex:Female Address:[address] [place] [address], [place] [address] * true * Date:? Generated for Kwaku hernández/Jameson/eTransmitting on:?03/24/2025 11:39 AM EDT
--- OUTSIDE RECORDS SUMMARY | 2025-03-24 11:40 | XMS_ITS | Patient Health Record ---
[facility] Organization [facility] Address [address] [place] [address] Care Team Providers Care Shaping Machine Operator Name Role Phone Spencer Stanley MD Primary Care Provider Sarabjit Caballero Unavailable [phone] Allergies Allergen (clinical drug ingredient) Drug/Non Drug [...] W/U Status Risk Notes Problem Plantar wart (26752602) Plantar wart (B07.0) Active confirmed Problem [id number] Onychomycosis (B35.1) Active confirmed Vital Signs Blood pressure diastolic 80 mm Hg 11/15/2024 Height 5 ft 4 in in 11/15/2024 Blood pressure systolic 120 mm Hg 11/15/2024 Weight 142 lbs 11/15/2024 BMI 24.37 kg/m2 11/15/2024 Procedures Procedure Date Ordered Date Performed Result Body Sit e 80570-UWCOTDS NAIL, 1-11/15/2024 N/A 12990-Sbyh Destruction, -11/15/2024 N/A Encounters Encounter Location Date Provider Diagnosis [facility] [address] 11/15/2024 Sarabjit Manriquez Pain in left toe(s) M79.675 ; Onychomycosis B35.1 ; Right foot pain M79.671 ; Plantar wart B07.0 ; Pain in right ankle and joints of right foot M25.571 ; Bursitis of intermetatarsal bursa of right foot M77.51 and Metatarsalgia, right foot M77.41 [facility] [address] 11/15/2024 [facility]it [facility]riquez [facility] [address] 11/17/2024 Sarabjit Manriquez Assessments Encounter Date Diagnosis [...] X ray : Foot, right 3V 09/25/2022 74042-UZFFIAW NAIL, 1-5 11/15/2024 78096-Hogq Destruction, 1-14 11/15/2024 88037-Qrnjexop Plate 12/08/2017 41041- Debride <25 sq cm 12/25/2017 Insurance Providers Payer Name Payer Address Payer Phone Subscriber Number Group Number Insured Name Patient Relationship to Insured Coverage Start Date Coverage End Date Medicare [employer] [address] [place] [address] [id number] Maday Draper Self - patient is the insured [employer] [facility] [address] [place] [address] [id number] Maday Draper Self - patient is the insured Medical (General) History Medical History History ICD Code Diverticulosis Measles Mumps Chicken pox Osteoporosis Reflux ( GERD) Hypertension Elevated LFTs Vitamin D deficiency Hypercalciuria Tubular adenoma of colon Cataracts Surgical History Surgery Date(Month/Year) hysterectomy 1986 hammer toe 1998
--- OUTSIDE RECORDS SUMMARY | 2025-03-24 11:40 | XMS_ITS ---
Author Organization [facility] Address [address] [place] [address] Care Team Providers Care Restaurant Management Internship Name Role Phone Spencer Stanley MD Primary Care Provider Dany Regan [phone] Allergies Allergen (clinical drug ingredient) Drug/Non Drug [...] Status W/U Status Risk Notes Problem Diverticulitis o f colon (K57.32) Active confirmed Vital Signs Blood pressure systolic 111 mm Hg 12/06/19 25 Blood pressure diastolic 11 mm Hg 025 Height 63.75 in 12/06/2024 Weight 136 lbs 12/06/2024 BMI 23.53 kg/m2 12/06/2024 Encounters Encounter Location Date Provider Diagnosis [facility] [address] [place] [address] 12/06/2024 Dany Willis Diverticulitis of co laya K57.32 Assessments Encounter Date Diagnosis (ICD Code) Assessment Notes Treatment Notes Treatment Clinical Notes Section Notes 12/06/2024 Diverticulitis of colon (ICD-10 - K57.32) Repeat colonoscopy in 04/2026 Go on a liquid diet for 1 or 2 days if the diverticulitis flares up, but definitely go on antibiotics if not getting better Need [facility] CT scan in 2023 Overall, Maday [...] on antibiotics if not getting better Need [facility] CT scan in 2023 Next Appt Details Follow Up: prn, Reason: Progress Notes * MADAY ARBOLEDADOB:1949 (74 yo F)Acc No.[id number]:12/06/2024 Progress Notes Patient:?MADAY ARBOLEDA Provider:?Dany Willis MD :1950???Age:74 Y???Sex:Female D ate:12/06/2024 Address:[address] [place], [place] [id number] Pcp:Spencer Stanley MD Subjective: * Chief Complaints: [...] at the time of that episode at [facility] as an outpatient She has not [...] * Treatment: * Procedure Codes:?1036F TOBAC CO NON-[id number] BP SCR NOT PRFRM REC REASON NOS * Preventive Medicine:? ??Urinary Incontinence:?Urinary Incontinence?Assessment:?Absent,?Plan of care documented:?No, reason not specified.? ??Screenings:?Fall Risk Screening?Fall Risk Assessment:?No falls in the past year,?Screening:?No falls in the past year,?Assessment:?Not performed, no reason specified,?Plan of Care:?Not documented, no reason specified.? * Follow Up:?prn * * Sign off status: Completed true * Provider:?Dany Willis MD Date:? 025 Generated for Kwaku hernández/Jameson/eTransmitting on:?03/24/2025 11:39 AM EDT History and Physical Notes * [...] at the time of that episode at [facility] as an outpatient She has not [...]
--- OUTSIDE RECORDS SUMMARY | 2025-03-24 11:40 | XMS_ITS ---
Author Organization [facility] Address [address] [place] [address] Care Team Providers Care Online Merchandising Coordinator Name Role Phone Spencer Stanley MD Primary Care Provider Sarabjit Caballero [phone] REASON FOR VISIT BUY Pedag [employer] (red) #38 / L 8 Encounters Encounter Location Date Provider Diagnosis [facility] [address] [place] [address] 11/15/2024 Sarabjit Manriquez Plan Of Treatment No Information Progress Notes * Maday ARBOLEDA MDOB:[birth year] (74 yo F)Acc No.[id number]:11/15/2024 Patient:?Maday ARBOLEDA :1950???Age:74 Y???Sex:Female Address:[place] [address] * true * Date:? Generated for Printi ng/Faxing/eTransmitting on:?03/24/2025 11:40 AM EDT
--- OUTSIDE RECORDS SUMMARY | 2025-03-24 11:41 | XMS_ITS | Patient Health Record ---
Author Organization Spencer Stanley MD Address [address] [place] [phone] Care Team Providers Care Process Excellence Manager Name Role Phone Spencer Stanley Primary Care Provider [phone] Allergies Allergen (clinical drug ingredient) Drug/Non Drug Allergy documented on EMR Reaction Allergy Type Onset Date Status epinephrine (uncoded) heart palpitations Allergy Active tetracycline tetracycline (uncoded) rash Allergy Active Results Component Value Reference Range Notes Sodium Reviewed date:06/20/2024 12:38:09 PM Interpretation: Performing Lab:[facility], [address] [place] [phone] Notes/Report: Sodium 136 135-145 mmol/L Sodium Reviewed date:07/22/2024 03:46:24 PM Interpretation: Performing Lab:[facility], [address] [place] [phone] Notes/Report: Sodium 130 135-145 mmol/L Complete Blood Count Auto Di ff Reviewed date:01/05/2025 04:35:02 PM Interpretation: Performing Lab:[facility], [address] [place] [phone] Notes/Report: White Blood Count 5.0 4.8-10.8 X10*3/uL [...] NRBC Abs Auto 0.000 0.0-0.012 X10*3/uL Comprehensive [place]. Panel Fa st Reviewed date:01/05/2025 12:43:17 PM Interpretation: Performing Lab:[facility], [address] [place] [phone] Notes/Report: Sodium 140 135-145 mmol/L Potassium 4.1 [...] Panel Reviewed date:01/05/2025 12:43:41 PM Interpretation: Performing Lab:[address] [phone] Notes/Report: Bilirubin Direct 0.2 0.0-0.5 mg/dL Lipid Panel Reviewed date:01/05/2025 12:43:26 PM Interpretation: Performing Lab:[address] [phone] Notes/Report: Triglycerides 59 <150 mg/dL Desirable Triglyceride: [...] Total Reviewed date:01/05/2025 12:43:34 PM Interpretation: Performing Lab:[facility], [address] [place] [phone] Notes/Report: Vitamin D 25-OH Total 62.4 >30 [...] Microscopic Reviewed date:06/24/2024 12:19:06 PM Interpretation: Performing Lab:[facility], [address] [place] [phone] Notes/Report: Color Urine Yellow Appearance Urine Clear PH 6.0 5.0-9.0 Glucose Urine UA Negative Negative mg/dL Urine Blood Negative Negative Specific Junction - Urine 1.010 1.005-1.025 Urine Protein Negative Neg-Trace mg/dL Urine Ketones Negative Negative mg/dL Nitrite Urine Negative Negative Leukocyte Esterase Urine Trace Negative RBC Urine 0-2 0-2 /HPF WBC Urine 0-5 0-5 /HPF Squamous Epithelial Cell Urine 0-2 0-2 /HPF Bacteria Urine None Seen None Seen Hyaline Casts Urine 0-2 0-2 /LPF Urine Culture Reviewed date:06/26/2024 06:31:44 PM Interpretation: Performing Lab:[facility], [address] [place] [phone] Notes/Report: Urine Culture No growth. Complete Blood Count Auto Di ff Reviewed date:06/30/2024 04:04:48 PM Interpretation: Performing Lab:[facility], [address] [place] [phone] Notes/Report: White Blood Count 9.4 4.8-10.8 X10*3/uL [...] Nitrogen Reviewed date:06/30/2024 04:03:45 PM Interpretation: Performing Lab:[address] [phone] Notes/Report: Blood Urea Nitrogen 10 9-16 mg/dL Sodium Reviewed date:09/01/2024 12:26:42 PM Interpretation: Performing Lab:[address] [phone] Notes/Report: Sodium 137 135-145 mmol/L Occult Blood, Stool, Guaiac Reviewed date:01/12/2025 10:30:48 AM Interpretation:Negative Performing Lab: Notes/Report: Negative Occult Blood, Stool, Guaiac Neg UA ClnCatch+Micro w/rflx Cul t Reviewed date:01/12/2025 11:52:13 AM Interpretation: Performing Lab:[facility], [address] [place] [phone] Notes/Report: Urine, Clean Catch Color Urine Yellow Appearance Urine Clear PH 6.5 5.0-9.0 Glucose Urine UA Negative Negative mg/dL Urine Blood Negative Negative Specific Junction - Urine 1.010 1.005-1.025 Urine Protein Negative Neg-Trace mg/dL Urine Ketones Negative Negative mg/dL Nitrite Urine Negative Negative Leukocyte Esterase Urine Negative Negative RBC Urine 0-2 0-2 /HPF WBC Urine 0-5 0-5 /HPF Squamous Epithelial Cell Urine 0-2 0-2 /HPF Bacteria Urine None Seen None Seen Hyaline Casts Urine 0-2 0-2 /LPF Sodium Reviewed date:04/12/2024 12:45:35 PM Interpretation: Performing Lab:[facility], [address] [place] [phone] Notes/Report: Sodium 131 135-145 mmol/L Creatinine Reviewed date:06/30/2024 04:03:53 PM Interpretation: Performing Lab:[facility], [address] [place] [phone] Notes/Report: Creatinine 0.73 0.5-1.4 mg/dL Estimated Glomerular Filt Rate > 60 NOTE: For -Hungarian individuals, multiply the result by 1.210. Chronic Kidney Disease: Estimated GFR < 60 mL/min/1.73m2 Severe Kidney Disease: Estimated GFR < 15 mL/min/1.73m2 Electrolytes Reviewed date:09/22/2024 06:06:11 PM Interpretation: Performing Lab:[facility], [address] [place] [phone] Notes/Report: Sodium 137 135-145 mmol/L Potassium 4.4 3.3-5.1 mmol/L Chloride 105 96-108 mmol/L Carbon Dioxide 29 22-29 mmol/L Anion Gap 7 12-20 Uric Acid Reviewed date:09/22/2024 06:05:36 PM Interpretation: Performing Lab:[facility], [address] [place] [phone] Notes/Report: Uric Acid 2.6 2.4-5.7 mg/dL TSH reflex Free T4 Reviewed date:09/22/2024 06:05:26 PM Interpretation: Performing Lab:[facility], [address] [place] [phone] Notes/Report: TSH reflex Free T4 1.71 0.32-4.0 uIU/mL Aldosterone Reviewed date:10/03/2024 12:34:25 PM Interpretation: Performing Lab:[facility], [address] [place] [phone] Notes/Report: Aldosterone TNP Renin Reviewed date:09/30/2024 04:47:30 PM Interpretation: Performing Lab:[facility], [address] [place] [phone] Notes/Report: Renin 2.86 0.25-5.82 ng/mL/h This test was developed and its analytical performance characteristics have been determined by [employer] [place], [place]. It has not been cleared or approved by the U.S. Food and Drug Administration. This assay has been validated pursuant to the CLIA regulations and is used for clinical purposes. THIS TEST WAS PERFORMED AT: [employer] [address] PAT CUMMINGS MD,PHD Aldost/Renin Reviewed date:10/03/2024 12:35:02 PM Interpretation: Performing Lab:[facility], [address] [place] [phone] Notes/Report: Aldosterone 2 see note ng/dL Unable to flag abnormal result(s), please refer to reference range(s) below: Adult Reference Ranges for Aldosterone, LC/MS/MS: Upright 8:00 - 10:00 am < or = 28 ng/dL Upright 4:00 - 6:00 pm < or = 21 ng/dL Supine 8:00 - 10:00 am 3 - 16 ng/dL THIS TEST WAS PERFORMED AT: [facility] [address] PAT CUMMINGS MD,PHD Plasma Renin Activity 2.58 0.25-5.82 ng/mL/h Aldosterone/Renin Ratio 0.8 0.9-28.9 Ratio This test was developed and its analytical performance characteristics have been determined by [employer] [place], [place]. It has not been cleared or approved by the U.S. Food and Drug Administration. This assay has been validated pursuant to the CLIA regulations and is used for clinical purposes. THIS TEST WAS PERFORMED AT: [facility] [place] [id number] [place] [address] PAT CUMMINGS MD,PHD Metanephrines, Plasma Reviewed date:09/29/2024 05:20:12 PM Interpretation: Performing Lab:[facility], [address] [place] [phone] Notes/Report: Metanephrine, Free 47 <=57 pg/mL This test was developed and its analytical performance characteristics have been determined by [employer] [place], [place]. It has not been cleared or approved by the U.S. Food and Drug Administration. This assay has been validated pursuant to the CLIA regulations and is used for clinical purposes. Normetanephrines, Free 208 <=148 pg/mL This test was developed and its analytical performance characteristics have been determined by [employer] [facility] [employer] [place], [place]. It has not been cleared or approved by the U.S. Food and Drug Administration. This assay has been validated pursuant to the CLIA regulations and is used for clinical purposes. Total Metanephrine, Free 255 <=205 pg/mL For additional information, please refer to http://education.[employer]/faq/MetFractFree (This link is being provided for informational/educatio [...] analytical performance characteristics have been determined by [employer] [facility] [employer] [place], [place]. It has not been cleared or approved by the U.S. Food and Drug Administration. This assay has been validated pursuant to the CLIA regulations and is used for clinical purposes. THIS TEST WAS PERFORMED AT: [employer] [address] [place] [address] PAT CUMMINGS MD,PHD Osmolality Urine Reviewed date:09/22/2024 03:17:39 PM Interpretation: Performing Lab:[address] [phone] Notes/Report: Osmolality Urine 003 247-5550 mosm/kg Sodium Urine Random Reviewed date:09/22/2024 12:50:43 PM Interpretation: Performing Lab:[address] [phone] Notes/Report: Sodium Urine Random 21.0 Immunofixation Pnl, Serum Reviewed date:09/27/2024 08:14:33 PM Interpretation: Performing Lab:[address] [phone] Notes/Report: IgG 934 441-4808 mg/dL IgA 308 70-320 mg/dL IgM 95 50-300 mg/dL THIS TEST WAS PERFORMED AT: [facility] [address] [address] SARA BARAJAS MD [employer]ation Interpretation SEE NOTE Normal pattern. No monoclonal proteins detected. Cortisol Random Reviewed date:09/22/2024 05:36:07 PM Interpretation: Performing Lab:[address] [phone] Notes/Report: Cortisol Random 11.8 Reference Range*: Before 10 am 6.2-19.4 ug/dL After 5 pm 2.3-11.9 ug/dL *Please interpret above results accordingly. This test was performed using the Boyd chemiluminescent method. Values obtained from different assay methods cannot be used interchangeably. Patients receiving fludrocortisone, prednisolone or prednisone may show artificially elevated cortisol values due to cross-reactivity. Ramos Pichardo Reviewed date:01/05/2025 12:42:55 PM Interpretation: Performing Lab:[address], [place] [address] Notes/Report: Hold Gold See Note Specimen held [...] PM EST > appt is at their [facility] office [address] [facility] [address] Nichols, patient is aware of appt Referral Priority Routine Referral Appointment Date 09/15/2024 Medications Medication SIG (Take, Route, Frequency, Duration) Notes Start Date End Date Status Tylenol 8 Hour Arthritis Pain 650 MG 2 tablets as needed Orally every 8 hrs Not-Taking Omeprazole 20 MG TAKE 1 CAPSULE BY [facility] EVERY DAY 30 MINUTES BEFORE BREAKFAST for 90 Not-Taki ng Valtrex 500 MG 1 tablet Orally ever y 12 hrs for 10 day(s) Not-Taking dilTIAZem HCl 60 MG as directed Orally Active Finacea 15 % 1 application Bit Grinder ally ONCE A DAY IN THE EVENING [...] Problem Status W/U Status Risk Notes Problem 03702021 Age-related osteoporosis without current pathological fracture (M81.0) Active confirmed Problem 540558036 Acute diverticulitis (K57.92) Active confirmed Problem 361603072 Reflux esophagit is (K21.00) Active confirmed Problem Vitamin D deficiency (90516118) Vitamin D deficiency (E55.9) Active confirmed Problem 105363540 Diverticulitis (K57.92) Active confirmed Problem Chronic frontal sinusitis (92276076) Chronic frontal sinusitis (J32.1) Active confirmed Problem 5539605 Diverticulitis o f large intestine without perforation or abscess without bleeding (K57.32) Active confirmed Problem 715716595 Other specified menopausal and perimenopausal disorders (N95.8) Active confirmed Problem 576532401 Lumbar disc disease (M51.9) Active confirmed Problem 435103401 Elevated LFTs (R79.89) Active confirmed Problem 935496218 Tubular adenoma of colon (D12.6) Active confirmed Problem 21235313 Essential hypertension (I10) Active confirmed Problem Osteoporosis (10130346) Osteoporosis (M81.0) Active confirmed Problem Acute pelvic marcia n, female (N94.9) Active confirmed Problem 20995188 Oropharyngeal dysphagia (R13.12) Active confirmed Problem 43827945 Peptic ulcer disease (K27.9) Active confirmed Problem 74890067 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 [place] [id number] 04/12/2024 Spencer Stanley Hyponatremia E87.1 Spencer Stanley MD [address] [place] [address] Drive [address] [place] [id number] 06/20/2024 Spencer Stanley Hyponatremia E87.1 Spencer Stanley MD [address] [place] [id number] 07/22/2024 Spencer Stanley Hyponatremia E87.1 a nd Encounter for immunization Z23 Spencer Stanley MD [address] [place] [address] [id number] 11/25/2024 Spencer Stanley Essential hypertensi on I10 Spencer Stanley MD [address] [place] [id number] 01/05/2025 Spencer Stanley Essential hypertensi on I10 ; Vitamin D deficiency E55.9 and Elevated LFTs R79.89 Spencer Stanley MD [address] [place] [id number] 02/23/2025 Spencer Stanley Diverticulitis K57.9 2 ; Rash R21 and Essential hypertension I10 Spencer Stanley MD [address] [place] [id number] 05/23/2024 Spencer Stanley Hyponatremia E87.1 Spencer Stanley MD [address] [place] [address] [id number] 06/24/2024 Spencer Stanley Essential hypertensi on I10 ; Hyponatremia E87.1 ; Atrophy of vagina N95.2 and Dysuria R30.0 Spencer Stanley MD [address] [place] [id number] 06/27/2024 Spencer Stanley Acute diverticulitis K57.92 Spencer Stanley MD [address] [place] [id number] 06/30/2024 Spencer Stanley Acute diverticulitis K57.92 and Encounter for preprocedural laboratory examination Z01.812 Spencer Stanley MD [address] [place] [id number] 08/02/2024 Spencer Stanley Acute diverticulitis K57.92 ; Hyponatremia E87.1 and Upper abdominal pain R10.10 Spencer Stanley MD [address] [place] [address] [id number] 08/19/2024 Spencer Stanley Acute diverticulitis K57.92 Spencer Stanley MD [address] [place] [address] [id number] 09/01/2024 Spencer Bombardier Hyponatremia E87.1 Spencer Stanley MD [address] [place] [address] [id number] 09/02/2024 Spencer Bombardier Essential hypertensi on I10 and Hyponatremia E87.1 Spencer Stanley MD [address] [place] [address] [id number] 09/08/2024 Spencer Bombardier Essential hypertensi on I10 and Hyponatremia E87.1 Spencer Stanley MD [address] [place] [address] [id number] 09/09/2024 Spencer Bombardier Essential hypertensi on I10 and Hyponatremia E87.1 Spencer Stanley MD [address] [place] [address] [id number] 09/15/2024 Spencer Bombardier Essential hypertensi on I10 and Hyponatremia E87.1 Spencer Stanley MD [address] [place] [address] [id number] 09/22/2024 Spencer Bombardier Essential hypertensi on I10 and Hyponatremia E87.1 Spencer Stanley MD [address] [place] [address] [id number] 10/13/2024 Spencer Bombardier Essential hypertensi on I10 and Hyponatremia E87.1 Spencer Stanley MD [address] [place] [id number] 11/14/2024 Spencer Bergerardier Viral URI J06.9 Spencer Stanley MD [address] [place] [address] [id number] 12/13/2024 Spencer Bombardier Essential hypertensi on I10 and Abdominal wall pain R10.9 Spencer Stanley MD [address] [place] [address] [id number] 01/12/2025 Spencer Bombardier Essential hypertensi on I10 ; Macrocytosis without anemia D75.89 ; Elevated LFTs R79.89 ; Vitamin D deficiency E55.9 ; Colon cancer screening Z12.11 and Depression screening Z13.31 Spencer Stanley MD [address] [place] [address] [id number] 06/24/2024 Spencer Stanley MD [address] [place] [address] [id number] 06/30/2024 Spencer Stanley MD [address] [place] [address] [id number] 09/05/2024 Spencer Stanley MD [address] [place] [address] [id number] 01/09/2025 Spencer Stanley MD [address] [facility] [place] [address] [id number] 01/20/2025 Spencer Stanley MD [address] [place] [address] [id number] 02/14/2025 Spencer Stanley Assessments Encounter Date Diagnosis [...] high 01/05/2025 Essential hypertension (ICD-10 - I10) 02/23/2025 Diverticulitis (ICD-10 - K57.92) 02/23/2025 Rash (ICD-10 - R21) came on while on augmentin but was on half dose and it went away so is not an allergy 05/23/2024 Hyponatremia (ICD-10 - E87.1) pendinglabs, patient [...] - K57.92) pending diagnostic testing/ booked at [facility] 8-23-24 2:30am 06/30/2024 Encounter for preprocedural laboratory examination [...] started. restart the valsartan/ order faxed to [facility] CS dept, patient verbalized [...] I10) doing much better/ going to see client business manager 09/22/2024 Hyponatremia (ICD-10 - E87.1) he has [...] 01/05/2025 Vitamin D deficiency (ICD-10 - E55.9) 02/23/2025 Essential hypertension (ICD-10 - I10) having side effects with every medicine that she takes and is making adjustments of her own and is difficult to get her bp controlled. to see covered button maker again 06/24/2024 Hyponatremia (ICD-10 - E87.1) will continue [...] 01/12/2025 Vitamin D deficiency (ICD-10 - E55.9) stasonya, will continue current regiment and will continue to monitor 01/12/2025 Colon cancer screening (ICD-10 - Z12.11) guaiac negative 01/12/2025 Depression screening (ICD-10 - Z13.31) negtive screen Plan Of Treatment Pending Test Test Name Order Date Electrocardiogram (EKG) 10/23/2016 Electrocardiogram (EKG) 12/02/2018 Electrocardiogram (EKG) 12/15/2019 CT ABD & PELVIS WITH CONTRAST 06/30/2024 XR GI SERIES 09/13/2021 BONE DENSITY DEXA 12/15/2019 BONE DENSITY DEXA 06/15/2023 US ABD 09/08/2024 SARS COV2 IGG 04/30/2020 Vitamin B12 and Folate 01/12/2025 MM tomosynthesis screening BI 12/25/2020 XR DEXA axial skeleton 12/25/2020 US venous duplex LE RT 09/13/2021 XR chest 2V 09/22/2022 UA ClnCatch+Micro w/rflx Cult 01/05/2025 Next Appt Details Provider Name:Spencer Mccullough ier, 04/13/2025 10:15:00 AM, [address] [place] [address], [address], [place], [place], [id number], Provider Name:Spencer Mccullough ier, 01/08/2026 07:30:00 AM, [address] [place] [address], Suite [facility], [place], [place], [id number], Provider Name:Spencer Mccullough ier, 01/15/2026 09:30:00 AM, [address] [place] [address], Suite [facility], [place], [place], [id number], Insurance Providers Payer Name Payer Address Payer Phone Subscriber Number Group Number Insured Name Patient Relationship to Insured Coverage Start Date Coverage End Date MEDICARE NHIC NOAH [address] [place] [address] [id number] Maday Arboleda Self - patient is the insured MEDEX BCBS OF [facility] [id number] [place] [phone] [id number] Maday Arboleda Self - patient is the insured Medical (General) History Medical History History ICD Code can tolerate doxycycline without difficu lty Refuses flu [id number] colonoscopy 04/2009 - adenoma due in 5 years for upper and lower; colonoscopy and endo done 02/01/[address] Mckinney (repeat 01/2020) hysterectomy (has one ovary); no paps on ly pelvic exam Tinnitus of left ear colonoscopy done 04/29, due in 5 years
--- OUTSIDE RECORDS SUMMARY | 2025-03-24 11:41 | XMS_ITS ---
Author Organization Spencer Stanley MD Address [address] [place] [phone] Care Team Providers Care Radio Journalist Name Role Phone Spencer Stanley Primary Care [...] Orally Active Finacea 15 % 1 application Design Transferrer ally ONCE A DAY IN THE EVENING [...] Omeprazole 20 MG TAKE 1 CAPSULE BY [facility] EVERY DAY 30 MINUTES BEFORE BREAKFAST for 90 Not-Taki ng Valtrex 500 MG 1 tablet Orally ever y 12 hrs for 10 day(s) Not-Taking Vital Signs Blood pressure systolic 178 mm Hg 02/24/20 25 Blood pressure diastolic 80 mm Hg 025 Height 64 in 02/23/2025 Weight 138 lbs 02/23/2025 BMI 23.69 kg/m2 02/23/2025 weight is down 3 pounds [facility] 01-12-25 Encounters Encounter Location Date Provider Diagnosis Spencer Stanley MD [address] [place] [address] Drive [address] [place], [place] [phone] 02/23/2025 Spencer Stanley Diverticulitis K57.9 2 ; [...] to get her bp controlled. to see engine setter again Plan Of Treatment Medication Medication Name [...] to get her bp controlled. to see engine setter again Next Appt Details Provider Name:Spencer correa, 04/13/2025 10:15:00 AM, [address] [place] [address], [address], [place], [place], [phone], Provider Name:Spencer correa, 01/08/2026 07:30:00 AM, [address] [place] [address], [address], [place], [place], [phone], Provider Name:Spencer Mccullough ier, 01/15/2026 09:30:00 AM, [address], [address], [place], [phone], Progress Notes * Maday ARBOLEDA MDOB:[birth year] (74 yo F)Acc No.[id number]:02/23/2025 Progress Notes Patient:?Maday ARBOLEDA M Provider:?Spencer Stanley MD :1950???Age:74 Y???Sex:Female D ate:02/23/2025 Address:[address] [place] [address], [place] [id number] Subjective: * Chief Complaints: * ???1. BP. * HPI: ???Symptom(s):? patient is a 74 yo female here for follow up of BP. * ROS:?General/Constitutional:?Denies?Chills.?Denies?Fatigue.?Denies?Fever.?Denies?Headache.?ENT:?Denies?Sore throat.?Respiratory:?Denies?Cough.?Denies?Shortness of breath at rest.?Denies?Shortness of breath with exertion.?Cardiovascular:?Denies?Chest pain at rest.?Denies?Chest pain with exertion.?Denies?Dizziness.?Admits?Palpitations.?Denies?Shortness of breath.?Gastrointestinal:?Denies?Diarrhea.?Denies?Nausea.? * Medical History:?Can tolerat e doxycycline without difficulty, Refuses flu [id number], colonoscopy 04/2009 - adenoma due in 5 [...] Vitals:?Ht: 64, Wt: 138, BMI :23.69, BP:178/80, Repeat BP:160/70, Wt-k.6. weight is down 3 pounds since 01-12-25. * Examination: ???General Examination: ?GENERAL APPEARANCE:?well developed, well nourished.?HEAD:?normocephalic.?SKIN:?good turgor.?HEART:?no murmurs, rubs, gallops.?LUNGS:?no wheezes, rales, rhonchi.?ABDOMEN:?soft, nontender, nondistended, no rebound tenderness, no organomegaly.? Assessment: * Assessment: 1.?Diverticulitis - K57.92 ( Primary)???2.?Rash - R21???3.?Essential hypertension - I10??? Plan: * Treatment: 2.?Rash? Notes: came on while on augmentin but was on half dose and it went away so is not an allergy?? 3.?Essential hypertension? Notes: having side effects with every medicine that she takes and is making adjustments of her own and is difficult to get her bp controlled. to see engine setter again?? * * The named appointment provid er may or may not be the originator of this progress note, and it is not deemed complete until electronically signed by the appointment provider. Sign off status: Pending * Provider:?Spencer Stanley MD Date:?0 02/23/2025 Generated for Kwaku hernández/Jameson/Chrissmitting on:?03/24/2025 11:40 AM EDT History and Physical Notes * [...]
--- OUTSIDE RECORDS SUMMARY | 2025-03-24 11:41 | XMS_ITS ---
Author Organization [facility] Address [address] [facility] [place] [address] Care Team Providers Care Fire Prevention Forester Name Role Phone Spencer Stanley MD Primary Care Provider Sarabjit Caballero Unavailable [phone] Allergies Allergen (clinical drug ingredient) Drug/Non Drug [...] W/U Status Risk Notes Problem Plantar wart (00067189) Plantar wart (B07.0) Active confirmed Problem 328072603 Onychomycosis (B35.1) Active confirmed Vital Signs Height 5 ft 4 in in 11/15/2024 Weight 142 lbs 11/15/2024 BMI 24.37 kg/m2 11/15/2024 Blood pressure systolic 120 mm Hg 11/15/19 25 Blood pressure diastolic 80 mm Hg 025 Procedures Procedure Date Ordered Date Performed Result Body Sit e 53238-JREDEPS NAIL, 1-11/15/2024 N/A 37518-Upjp Destruction, 11-2211/15/2024 N/A Encounters Encounter Location Date Provider Diagnosis [facility] [address] [address] 11/15/2024 Sarabjit Manriquez Pain in left toe(s) [...] Treatment Pending Test Test Name Order Date [id number] NAIL, 1-5 11/15/2024 98966-Jhsb Destruction, 1-11/15/2024 Next Appt Details Follow Up: prn, Reason: Procedure Notes * Category Sub-Category Detail Notes Wart Treatment Procedure Verruca, as desc ribed in exam, were debrided to pin-point bleeding margins with sterile 15 surgical blade, silver nitrate chemocautery applied, recomm. immune-boosting meds such as zinc, recomm. follow up with topical chemosurgical agents, Pt defers any other forms of tx - 70425 Debride Nails 1-5 Procedure: Due to the [...] necessary to maintain effective symptomatic relief - 92075 Progress Notes * Maday ARBOLEDA MDOB:[birth year] (74 yo F)Acc No.[id number]:11/15/2024 Progress Note Patient:?Maday ARBOLEDA Provider:?Sarabjit Manriquez DPM :1950???Age:74 Y???Sex:Female D ate:11/15/2024 Address:[address] [place] [address], [place], [id number] Pcp:Spencer Stanley MD Subjective: * Chief Complaints: [...] gardening/yard work, yoga. ?Marital status: . 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 * Medications:?TakingdilTIAZem HCl ER , Notes to [...] Uncomplicated (3)??? Plan: * Treatment: 2.?Plantar wart?Procedure: 22789-Asle Destruction, 1-14 * Procedures:?Debride Nails 1-5:?Procedure:?Due to [...] necessary to maintain effective symptomatic relief - 71861.?Wart Treatment:?Procedure?Verruca, as described in exam, were debrided to pin-point bleeding margins with sterile 15 surgical blade, silver nitrate chemocautery applied, recomm. immune-boosting meds such as zinc, recomm. follow up with topical chemosurgical agents, Pt defers any other forms of tx - 84722.? * Procedure Codes:?93365 DEBRI DE NAIL, 1-5, Modifiers: XS 61525 Wart Destruction, 1-14, Modifiers: XS 1036F TOBACCO [...] Manriquez DPM Date:?2024 Generated for Kwaku hernández/Jameson/Yousuf on:?03/24/2025 11:41 AM EDT History and Physical Notes * [...]
== END 2025-03-24 12:11 | disposition home or self-care (01) ==
LOC: HO.HKA 11:18
PROVIDERS: PCP Internal Medicine; Visit Provider Internal Medicine Nephrology
DX: I10 Essential (primary) hypertension (principal); E87.1 Hypo-osmolality and hyponatremia
CPT/HCPCS: 99214

== ENCOUNTER → 2025-03-24 11:18 | Outpatient (BNVA) | payer MEDICARE, SELFPAY | PROVIDERS: PCP Internal Medicine; Visit Provider Internal Medicine Nephrology | DX: I10 Essential (primary) hypertension (principal); E87.1 Hypo-osmolality and hyponatremia | CPT/HCPCS: 99212 ==

== ENCOUNTER 2025-04-12 09:34 | Outpatient (AMB) | payer MEDICARE, SELFPAY ==
--- NOTE | 2025-04-12 09:40 | HO.NEPHOV ---
Vital Signs 04/12/25 09:41 Height 5 ft 3 in Weight 137 lb 6 oz BMI 24.3 BP 180/80 H Blood Pressure Location Rt brachial Position Sitting Pulse 62 Pulse Source Pulse Oximeter Pulse Oximetry (%) 99 Oxygen Delivery Method Room Air Intake Visit Reasons: 2 weeks fu Administrative Services Assistant Required: No Accompanied by: Spouse Allergies tetracycline [TETRACYCLINE] Allergy (Unknown, Verified 04/12/25 09:41) Rash, itchy epinephrine Allergy (Unknown, Uncoded 02/21/25 10:01) heart palpitations HPI Comments Details: Maday was seen in follow up for hypertension. She is known to hypertension for a while and has been on hydrochlorothiazide bit she had been taking regularly without much side effects. She also is known to renal calculi. Her blood pressure started getting fluctuant, more so after COVID infection. She had to come off hydrochlorothiazide given hyponatremia, which has normalized now. Subsequently she was started on valsartan and the dose of which was maximized now. She had been tolerating that without much side effects. Her blood pressure control continued to be suboptimal with intermittent resting tachycardia and chest pressure symptoms without any reason. She was started on metoprolol of the time but she developed emotional lability as well as tiredness and it was discontinued. She has been started on 2.5 mg amlodipine at that time. She has been having some headache/ foggy head which she was attributing to amlodipine. She is not known to have any underlying thyroid disorders. She has no history of renal failure, liver disease or heart failure. She has had hyponatremia remotely. She denied any diagnosis of depression but gets anxious at times. She is not known to have any hyperkalemia, edema. She denies drinking excessive fluid or alcohol. She has no history of any malignancy. Diltiazem was eventually added to the regimen but she was not tolerating the higher dose. Dose was reduced recently and she felt better but still complaining about ringing in the ear and variety of unrelated symptoms intermittently . She has seen cardiology. Her dose of short acting Diltiazem was adjusted at the last visit. She still C/O unexplainable intermittent inconsistent symptoms which she tries to attribute to BP medications. She feels that some of her symptoms are due to Diltiazem. Her BP is better controlled now with medication changes [facility] Medical History Hypertension History of kidney stones Hiatal hernia Osteoporosis GERD (gastroesophageal reflux disease) Surgical History History of blepharoplasty History of hammer toe correction Hx of hysterectomy History of esophagogastroduodenoscopy (EGD) Hx of colonoscopy Family History Mother Hypertension Kidney stone Father Cancer Social History Do you presently have visiting nurse or other home services: No Alcohol intake: never Patient Tobacco Use Status: Former Tobacco user Review of Systems Const All systems reviewed & are unremarkable except as noted in HPI and below Physical Exam Vital Signs: Last Vital Signs Pulse 62 04/12/25 09:41 BP 180/80 H 04/12/25 09:41 Pulse Ox 99 04/12/25 09:41 Oxygen Delivery Method Room Air 04/12/25 09:41 BMI result Body Mass Index 24.3 Const General: comfortable and no acute distress Orientation/consciousness: patient oriented x3 HEENT Head: Yes normocephalic Mouth: Normal oral and palatal mucosa present Eyes EOM: EOMs intact bilaterally Neck Neck: Yes supple Resp Auscultation: clear to auscultation bilaterally Cardio Jugular venous distension: no JVD Rate: regular rate GI Palpation (GI): Soft to palpation Auscultation: normal bowel sounds General: Yes no CVA tenderness Back/Spine/Pelvis Back: no CVA tenderness Skin General skin exam: no rashes or lesions noted Neuro General: patient oriented x3 and moves all extremities Extrem General: Yes no pedal edema Results Reviewed Nephrology Results: No Data to Display Assessment & Plan Assessment & Plan (1) Hypertension: Code(s): I10 - Essential (primary) hypertension Category: Medical Qualifiers: Hypertension type: primary hypertension Qualified Code(s): I10 - Essential (primary) hypertension Plan Maday has longstanding hypertension. She did not tolerate metoprolol due to development of emotional lability. She is currently on valsartan 320 mg daily. I asked her to keep off hydrochlorothiazide for now. She has history of renal calculi. She is off fluid restriction . She has strong family history hypertension. She denied any other vascular risk factors or active vascular disease. She may need Doppler of her renal arteries with time, if needed. She can continue Diltiazem 30 mg bid in addition to Valsartan 320 mg daily in the morning along with carvedilol 12.5 mg bid. She should continue low sodium in the diet. She may need MRI brain/ Neurology consult if her head symptoms persists. I ordered a 24 hour BPM in a few weeks before next F/U. Answered all questions. Orders: Orders AMB 24 HR B/P Monitor PLACEMENT 2 Weeks I10 - Essential (primary) hypertension Coding Level of Care Code Est Pt Level 4 (10799) Diagnoses Primary hypertension I10 Hypertension type: primary hypertension
[2025-04-12 09:41] VITALS: BP 180/80; PULSE 62; O2SAT 99; BMI 24.3
--- OUTSIDE RECORDS SUMMARY | 2025-04-12 10:00 | XMS_ITS ---
Author Organization Spencer Stanley MD Address [address] [place] [phone] Care Team Providers Care Grocery Store Clerk Name Role Phone Spencer Stanley Primary Care Provider REASON FOR VISIT US ABD orders Encounters Encounter Location Date Provider Diagnosis Spencer Stanley MD [address] [facility] [address] [place] [phone] 01/20/2025 Spencer Stanley Plan Of Treatment Next Appt Details Provider Name:Spencer correa, 04/13/2025 10:15:00 AM, [address] [place] [address], [address], [phone], Provider Name:Spencer correa, 01/08/2026 07:30:00 AM, [address] [place] [address], [address], [phone], Provider Name:Spencer Mccullough madeline, 01/15/2026 09:30:00 AM, [address], [address], [place], [phone], Progress Notes * Maday ARBOLEDA MDOB:[birth year] (74 yo F)Acc No.[id number]:01/20/2025 Patient:?Maday ARBOLEDA :1950???Age:74 Y???Sex:Female Address:[address] [place] [address], [place] [address] * true * Date:? Generated for Kwaku hernández/Jameson/eTransmitting on:?04/12/2025 10:00 AM EDT
== END 2025-04-12 10:23 | disposition home or self-care (01) ==
LOC: HO.HKA 09:35
PROVIDERS: PCP Internal Medicine; Visit Provider Internal Medicine Nephrology
DX: I10 Essential (primary) hypertension (principal)
CPT/HCPCS: 99214

== ENCOUNTER → 2025-04-12 09:34 | Outpatient (BNVA) | payer MEDICARE, SELFPAY | PROVIDERS: PCP Internal Medicine; Visit Provider Internal Medicine Nephrology | DX: I10 Essential (primary) hypertension (principal) | CPT/HCPCS: 99212 ==

== ENCOUNTER 2025-04-25 13:01 | Outpatient (REF) | payer MEDICARE, SELFPAY ==
--- OUTSIDE RECORDS SUMMARY | 2025-04-25 14:45 | XMS_ITS ---
Author Organization Spencer Stanley MD Address [address] [place] [phone] Care Team Providers Care Frame Carver Spindle Name Role Phone Spencer Stanley Primary Care Provider [phone] Allergies Allergen (clinical drug ingredient) Drug/Non Drug [...] Omeprazole 20 MG TAKE 1 CAPSULE BY [facility] EVERY DAY 30 MINUTES BEFORE BREAKFAST for 90 Not-Taki ng Finacea 15 % 1 application Auto Salvage Worker ally ONCE A DAY IN THE [...] Location Date Provider Diagnosis Spencer Stanley MD [address] [place] [address] Drive [address] [place] [phone] 04/13/2025 Spencer Stanley Essential hypertension I10 and Bakers cyst, right M71.21 Assessments Encounter Date Diagnosis (ICD Code) Assessment Notes Treatment Notes Treatment Clinical Notes Section Notes 04/13/2025 Essential hypertension (ICD-10 - I10) has just had a change in her bp meds, will continue current regiment 04/13/2025 Bakers cyst, right (ICD-10 - M71.21) THE ORDER WAS FAXED TO [facility] FOR SCHEDULING Plan Of Treatment Medication [...] cyst, right THE ORDER WAS FAXED TO [facility] FOR SCHEDULING Pending Test Test Name Order Date US LEG RT VENOUS DOPPLER 04/13/2025 Next Appt Details Provider Name:Spencer correa, 01/08/2026 07:30:00 AM, [address] [place] [address], Suite [facility], [place], [place], [phone], Provider Name:Spencer correa, 01/15/2026 09:30:00 AM, [address] [place] [address], Suite [facility], [place], [place], [phone], Progress Notes * Maday ARBOLEDA MDOB:[birth year] (74 yo F)Acc No.[id number]:04/13/2025 Progress Notes Patient:?Maday ARBOLEDA Provider:?Spencer Stanley MD :1950???Age:74 Y???Sex:Female D ate:04/13/2025 Address:[address] [place] [address], Jose hamm[place], [facility] Subjective: * Chief Complaints: * ???3 MO F/U * HPI: ???Symptom(s):? patient is a 74 yo female here for 3 month follow up visit. * ROS:?General/Constitutional:?Denies?Chills.?Denies?Fatigue.?Denies?Fever.?Denies?Headache.?ENT:?Denies?Sore throat.?Respiratory:?Denies?Cough.?Denies?Shortness of breath at rest.?Denies?Shortness of breath with exertion.?Gastrointestinal:?Denies?Diarrhea.?Denies?Nausea.?Musculoskeletal:?Patient complaining of?pain behind knee.? * Medical History:? * Surgical History:? * Hospitalization/Major Diagno stic Procedure:? * Medications:?TakingCarvedilo l 6.25 MG Tablet 2 tabs Orally Twice [...] palpitationsyes[Allergies Verified] Objective: * Vitals:?Ht: 64, Wt: 138, BMI :23.69, BP:172/86, Repeat BP:160/80, Wt-k.6. * Examination: ???General Examination: ?GENERAL APPEARANCE:?well developed, well nourished, female.?HEAD:?normocephalic.?SKIN:?good turgor/ left great toe with some dark color of her nail laterally.?HEART:?no murmurs, rubs, gallops, regular rate and rhythm.?LUNGS:?clear to auscultation bilaterally, clear anteriorly and posteriorly.?EXTREMITIES:?pain and swelling behind rt knee.? Assessment: * Assessment: 1.?Essential hypertension - I10 (Primary)???2.?Bakers cyst, right - M71.21??? Plan: * Treatment: 2.?Bakers cyst, right?Imaging: US LEG RT VENOUS DOPPLER Notes: THE ORDER WAS FAXED TO [facility] FOR SCHEDULING?? * Procedure Codes:? * * Sign off status: Completed true * Provider:?Spencer Stanley MD Date:?0 04/13/2025 Generated for Kwaku hernández/Jameson/eTransmvida on:?04/25/2025 02:45 PM EDT History and Physical Notes * [...]
== END 2025-04-25 13:02 | disposition home or self-care (01) ==
LOC: HO.MAMMO 13:01
PROVIDERS: PCP Internal Medicine; Visit Provider Internal Medicine
DX: Z12.31 Encounter for screening mammogram for malignant neoplasm of breast (principal)
CPT/HCPCS: 77063; 77067

== ENCOUNTER → 2025-04-25 13:15 | Outpatient (BNV) | payer MEDICARE, SELFPAY | PROVIDERS: PCP Internal Medicine; Visit Provider Internal Medicine | DX: Z12.31 Encounter for screening mammogram for malignant neoplasm of breast (principal) | CPT/HCPCS: 77063; 77067 ==

== ENCOUNTER → 2025-04-26 08:57 | Outpatient (BNVA) | payer MEDICARE, SELFPAY | PROVIDERS: PCP Internal Medicine; Visit Provider Internal Medicine Nephrology | DX: Z13.89 Encounter for screening for other disorder (principal) ==

== ENCOUNTER → 2025-04-27 10:48 | Outpatient (BNVA) | payer MEDICARE, SELFPAY | PROVIDERS: PCP Internal Medicine; Visit Provider Internal Medicine Nephrology | DX: I10 Essential (primary) hypertension (principal) | CPT/HCPCS: 93786; 93788 ==

== ENCOUNTER 2025-05-10 10:04 | Outpatient (REF) | payer MEDICARE, SELFPAY ==
--- OUTSIDE RECORDS SUMMARY | 2025-04-13 06:15 | XMS_ITS ---
Author Organization Spencer Stanley MD Address [address] [place] [phone] Care Team Providers Care Senior Controls Engineer Name Role Phone Spencer Stanley Primary Care [...] Omeprazole 20 MG TAKE 1 CAPSULE BY [facility] EVERY DAY 30 MINUTES BEFORE BREAKFAST for 90 Not-Taki ng Finacea 15 % 1 application Intake Manager ally ONCE A DAY IN THE [...] Location Date Provider Diagnosis Spencer Stanley MD [address] [place] [address] Drive [address] [place] [phone] 04/13/2025 Spencer Stanley Essential hypertension I10 and Bakers cyst, right M71.21 Assessments Encounter Date Diagnosis (ICD Code) Assessment Notes Treatment Notes Treatment Clinical Notes Section Notes 04/13/2025 Essential hypertension (ICD-10 - I10) has just had a change in her bp meds, will continue current regiment 04/13/2025 Bakers cyst, right (ICD-10 - M71.21) THE ORDER WAS FAXED TO [facility] FOR SCHEDULING [...] cyst, right THE ORDER WAS FAXED TO [facility] FOR SCHEDULING Pending Test Test Name Order Date US LEG RT VENOUS DOPPLER 04/13/2025 Next Appt Details Provider Name:Spencer correa, 01/08/2026 07:30:00 AM, [address] [place] [address], Suite [facility], [place], [place], [phone], Provider Name:Spencer correa, 01/15/2026 09:30:00 AM, [address] [place] [address], Suite [facility], [place], [place], [phone], Progress Notes * Maday ARBOLEDA MDOB:[birth year] (74 yo F)Acc No.[id number]:04/13/2025 Progress Notes Patient: Maday DESAI Provider: Neris Stanley MD :1950 A ge:74 Y S ex:Female Date:04/13/2025 Address:[address] [place] [address] Jose Fish [id number] Subjective: * Chief Complaints: * 3 MO [...] DOPPLER Notes: THE ORDER WAS FAXED TO [facility] FOR SCHEDULING * Procedure Codes: * * Sign off status: Completed true * Provider: Neris Stanley MD Date: 0 04/13/2025 Generated for Kwaku hernández/Jameson/eTransmitting on: 05/10/2025 10:31 AM EDT History and Physical Notes [...]
--- NOTE | ~2025-05-10 | US_ITS ---
EXAMINATION: US TRIPLEX LOWER EXTREMITY, RIGHT CLINICAL INFORMATION: Pain, right lower extremity. COMPARISON: None available. TECHNIQUE: Color-flow triplex imaging with spectral analysis and compression Doppler were performed on the right lower extremity. FINDINGS: Respiratory variation, normal compression and augmented flow are demonstrated within the interrogated right common femoral vein, superficial femoral vein, profunda femoral vein, popliteal vein and midcalf peroneal and posterior tibial venous segments . There is no Gordon's cyst. US/US venous duplex LE RT IMPRESSION: No acute deep venous thrombosis interrogated veins, right lower extremity. Negative for DVT. Electronically signed by: Darion Butler MD 05/10/2025 11:16 AM EDT
--- OUTSIDE RECORDS SUMMARY | 2025-05-10 10:32 | XMS_ITS | Patient Health Record ---
Author Organization [facility] Address [address] [place] [address] Care Team Providers Care Drilling Plant Operator Name Role Phone Spencer Stanley MD Primary Care Provider Dany Regan Unavailable [phone] Allergies Allergen (clinical drug ingredient) Drug/Non Drug [...] Problem Status W/U Status Risk Notes Problem 0975057 Diverticulitis o f large intestine without perforation or abscess without bleeding (K57.32) Active confirmed Problem 844778609 Encounter for screening for malignant neoplasm of colon (Z12.11) Active confirmed Problem 680133607 Gastroesophageal reflux disease without esophagitis (K21.9) Active confirmed Problem 917177497 Elevated liver enzymes (R74.8) Active confirmed Problem Diverticulitis o f colon (K57.32) Active confirmed Problem 201384661 NSAID long-term use (Z79.1) Active confirmed Problem 777495244 Hx of adenomatou s colonic polyps (Z86.010) Active confirmed Vital Signs Blood pressure diastolic 11 mm Hg 12/06/2024 Height 63.75 in 12/06/2024 Blood pressure systolic 111 mm Hg 12/06/2024 Weight 136 lbs 12/06/2024 BMI 23.53 kg/m2 12/06/2024 Encounters Encounter Location Date Provider Diagnosis [facility] [address] [place] [address] 12/06/2024 Dany Willis Diverticulitis of co laya [...] Date MEDICARE OF [place] [address] [facility] [place] [address] [phone] [id number] MADAY ARBOLEDA Self - patient is the insured [employer] CLAIMS [address] [place] [address] [id number] ROBLESMADAY ONEIL Self - patient is the insured Medical (General) History Medical History History ICD Code 2003 and 05/07/2009 Colonoscopy--negative for polyps Tubular adenoma--removed in 2000 Internal hemorrhoids Diverticulosis-mild divertic ulitis of the distal descending/proximal sigmoid colon described on a CT scan in 12/2012, 11/2016, and 09/2018 GERD--EGD in 2003-small HH--no esophagit is, no Arevalo's Hiatal hernia Denies IA,DM,CVA,Lung disease,renal dise ase Osteoporosis Negative abdominal ultrasound in 01/2015--colonoscopy with sma ll tubular adenomas removed, diverticulosis, and internal hemorrhoids 01/2015-EGD with a small hiat al hernia, but no esophagitis nor Arevalo's esophagus Hx of kidney stones Hypertension Colonoscopy 04/2021 with a single tubular adenoma Diverticulitis 2023--had a CT at [facility] Surgical History Surgery Date(Month/Year) Hammer toe Hysterectomy w/removal of 1 ovary
--- OUTSIDE RECORDS SUMMARY | 2025-05-10 10:32 | XMS_ITS | Patient Health Record ---
Author Organization [facility] Address [address] [facility] [place] [address] Care Team Providers Care Merchandise Clerk Name Role Phone Spencer Stanley MD Primary Care Provider Sarabjit Caballero Unavailable [phone] Allergies Allergen (clinical drug ingredient) Drug/Non Drug [...] 320-25 MG 1 tablet Orally Once a day; Duration: 30 days Not-Taking Immunizations Vaccine Route Administration [...] W/U Status Risk Notes Problem Plantar wart (07552483) Plantar wart (B07.0) Active confirmed Problem Onychomycosis (384437874) Onychomycosis (B35.1) Active confirmed Vital Signs Blood pressure diastolic 80 mm Hg 11/15/2024 Height 5 ft 4 in in 11/15/2024 Blood pressure systolic 120 mm Hg 11/15/2024 Weight 142 lbs 11/15/2024 BMI 24.37 kg/m2 11/15/2024 Procedures Procedure Date Ordered Date Performed Result Body Sit e 26032-NZJKLVZ NAIL, -11/15/2024 N/A 03245-Dnpc Destruction, -11/15/2024 N/A Encounters Encounter Location Date Provider Diagnosis [facility] [address] 11/15/2024 Sarabjit Manriquez Pain in left toe(s) M79.675 ; Onychomycosis B35.1 ; Right foot pain M79.671 ; Plantar wart B07.0 ; Pain in right ankle and joints of right foot M25.571 ; Bursitis of intermetatarsal bursa of right foot M77.51 and Metatarsalgia, right foot M77.41 [facility] [address] 11/15/2024 Sar[facility]jit Manriquez [facility] [address] 11/17/2024 Sarabjit Manriquez Assessments Encounter Date Diagnosis [...] X ray : Foot, right 3V 09/25/2022 27393-ECKTXPC NAIL, 1-5 11/15/2024 27985-Uijn Destruction, 1-14 11/15/2024 83767-Nowhixwp Plate 12/08/2017 11399- Debride <25 sq cm 12/25/2017 Insurance Providers Payer Name Payer Address Payer Phone Subscriber Number Group Number Insured Name Patient Relationship to Insured Coverage Start Date Coverage End Date Medicare National [employer] [address] [place] [address] [id number] Maday Draper Self - patient is the insured [employer] [facility] [address] [place] [address] [id number] Maday Draper Self - patient is the insured Medical (General) History Medical History History ICD Code Diverticulosis Measles Mumps Chicken pox Osteoporosis Reflux ( GERD) Hypertension Elevated LFTs Vitamin D deficiency Hypercalciuria Tubular adenoma of colon Cataracts Surgical History Surgery Date(Month/Year) hysterectomy 1986 hammer toe 1998
== END 2025-05-10 10:05 | disposition home or self-care (01) ==
LOC: HO.US 10:04
PROVIDERS: Visit Provider Internal Medicine
DX: M71.21 Synovial cyst of popliteal space [Baker], right knee (principal); M79.604 Pain in right leg
CPT/HCPCS: 93971

== ENCOUNTER → 2025-05-10 10:52 | Outpatient (BNV) | payer MEDICARE, SELFPAY | PROVIDERS: Visit Provider Radiology Diagnostic Radiology | DX: M79.604 Pain in right leg (principal) | CPT/HCPCS: 93971 ==

== ENCOUNTER 2025-05-16 14:10 | Outpatient (AMB) | payer MEDICARE, SELFPAY ==
--- OUTSIDE RECORDS SUMMARY | 2025-04-13 06:15 | XMS_ITS ---
Author Organization Spencer Stanley MD Address [address] [place] [phone] Care Team Providers Care Meat Stuffer Name Role Phone Spencer Stanley Primary Care Provider [phone] Allergies Allergen (clinical drug ingredient) Drug/Non Drug [...] Omeprazole 20 MG TAKE 1 CAPSULE BY [facility] EVERY DAY 30 MINUTES BEFORE BREAKFAST for 90 Not-Taki ng Finacea 15 % 1 application Principal Engineer ally ONCE A DAY IN THE [...] Location Date Provider Diagnosis Spencer Stanley MD [address] [place] [address] Drive [address] [place] [phone] 04/13/2025 Spencer Stanley Essential hypertension I10 and Bakers cyst, right M71.21 Assessments Encounter Date Diagnosis (ICD Code) Assessment Notes Treatment Notes Treatment Clinical Notes Section Notes 04/13/2025 Essential hypertension (ICD-10 - I10) has just had a change in her bp meds, will continue current regiment 04/13/2025 Bakers cyst, right (ICD-10 - M71.21) THE ORDER WAS [place] [facility] [place] Plan Of Treatment Medication [...] cyst, right THE ORDER WAS FA[place]ED TO [facility] Pending Test Test Name Order Date US LEG RT VENOUS DOPPLER 04/13/2025 Next Appt Details Provider Name:Spencer correa, 01/08/2026 07:30:00 AM, [address] [place] [address], Suite [facility], [place], [place], [phone], Provider Name:Spencer correa, 01/15/2026 09:30:00 AM, [address] [place] [address], Suite [facility], [place], [place], [phone], Progress Notes * Maday ARBOLEAD MDOB:[birth year] (74 yo F)Acc No.[id number]:04/13/2025 Progress Notes Patient: Maday DESAI Provider: Neris Stanley MD :1950 A ge:74 Y S ex:Female Date:04/13/2025 Address:[address] [place] [address] [place] Fish [id number] Subjective: * Chief Complaints: * 3 MO [...] DOPPLER Notes: THE ORDER WAS FA[facility]ED TO [facility] * Procedure Codes: * * Sign off status: Completed true * Provider: Neris Stanley MD Date: 0 04/13/2025 Generated for Kwaku hernández/Jameson/eTransmitting on: 0 05/16/2025 03:01 PM EDT History and Physical Notes [...]
[2025-05-16 14:16] VITALS: BP 180/82; PULSE 64; O2SAT 98; BMI 24.6
--- NOTE | 2025-05-16 14:16 | HO.NEPHOV ---
Vital Signs 05/16/25 14:16 Height 5 ft 3 in Weight 139 lb BMI 24.6 BP 180/82 H Blood Pressure Location Lt brachial Position Sitting Pulse 64 Pulse Source Pulse Oximeter Pulse Oximetry (%) 98 Oxygen Delivery Method Room Air Intake Visit Reasons: FU-Conf Supervisor Offset Plate Preparation Required: No Accompanied by: Spouse Allergies tetracycline (TETRACYCLINE) Allergy (Unknown, Verified 05/16/25 14:18) Rash, itchy epinephrine Allergy (Unknown, Uncoded 02/21/25 10:01) heart palpitations PFSH Medical History Hypertension History of kidney stones Hiatal hernia Osteoporosis GERD (gastroesophageal reflux disease) Surgical History History of blepharoplasty History of hammer toe correction Hx of hysterectomy History of esophagogastroduodenoscopy (EGD) Hx of colonoscopy Family History Mother Hypertension Kidney stone Father Cancer Social History Do you presently have visiting nurse or other home services: No Alcohol intake: never Patient Tobacco Use Status: Former Tobacco user Coding
--- NOTE | 2025-05-16 14:16 | HO.NEPHOV ---
Vital Signs 05/16/25 14:16 Height 5 ft 3 in Weight 139 lb BMI 24.6 BP 180/82 H Blood Pressure Location Lt brachial Position Sitting Pulse 64 Pulse Source Pulse Oximeter Pulse Oximetry (%) 98 Oxygen Delivery Method Room Air Intake Visit Reasons: FU-Conf Allergies tetracycline (TETRACYCLINE) Allergy (Unknown, Verified 05/16/25 14:18) Rash, itchy epinephrine Allergy (Unknown, Uncoded 02/21/25 10:01) heart palpitations HPI Comments Details: Maday was seen in follow up for hypertension. She is known to hypertension for a while and has been on hydrochlorothiazide bit she had been taking regularly without much side effects. She also is known to renal calculi. Her blood pressure started getting fluctuant, more so after COVID infection. She had to come off hydrochlorothiazide given hyponatremia, which has normalized now. Subsequently she was started on valsartan and the dose of which was maximized now. She had been tolerating that without much side effects. Her blood pressure control continued to be suboptimal with intermittent resting tachycardia and chest pressure symptoms without any reason. She was started on metoprolol of the time but she developed emotional lability as well as tiredness and it was discontinued. She has been started on 2.5 mg amlodipine at that time. She has been having some headache/ foggy head which she was attributing to amlodipine. She is not known to have any underlying thyroid disorders. She has no history of renal failure, liver disease or heart failure. She denied any diagnosis of depression but gets anxious at times. She is not known to have any hyperkalemia, edema. She denies drinking excessive fluid or alcohol. She has no history of any malignancy. Diltiazem was eventually added to the regimen but she was not tolerating the higher dose. Dose was reduced recently and she felt better but still complaining about ringing in the ear and variety of symptoms intermittently . She has seen cardiology. Her dose of short acting Diltiazem was adjusted at the last visit. She still C/O unexplainable intermittent inconsistent symptoms which she tries to attribute to BP medications. She feels that some of her symptoms are due to Diltiazem. [facility] Medical History Hypertension History of kidney stones Hiatal hernia Osteoporosis GERD (gastroesophageal reflux disease) Surgical History History of blepharoplasty History of hammer toe correction Hx of hysterectomy History of esophagogastroduodenoscopy (EGD) Hx of colonoscopy Family History Mother Hypertension Kidney stone Father Cancer Social History Do you presently have visiting nurse or other home services: No Alcohol intake: never Patient Tobacco Use Status: Former Tobacco user Review of Systems Const All systems reviewed & are unremarkable except as noted in HPI and below Physical Exam Vital Signs: Last Vital Signs Pulse 64 05/16/25 14:16 BP 180/82 H 05/16/25 14:16 Pulse Ox 98 05/16/25 14:16 Oxygen Delivery Method Room Air 05/16/25 14:16 BMI result Body Mass Index 24.6 Const General: comfortable and no acute distress Orientation/consciousness: patient oriented x3 HEENT Head: Yes normocephalic Mouth: Normal oral and palatal mucosa present Eyes EOM: EOMs intact bilaterally Neck Neck: Yes supple Resp Auscultation: clear to auscultation bilaterally Cardio Jugular venous distension: no JVD Rate: regular rate GI Palpation (GI): Soft to palpation Auscultation: normal bowel sounds General: Yes no CVA tenderness Back/Spine/Pelvis Back: no CVA tenderness Skin General skin exam: no rashes or lesions noted Neuro General: patient oriented x3 and moves all extremities Extrem General: Yes no pedal edema Assessment & Plan Assessment & Plan (1) Hypertension: Code(s): I10 - Essential (primary) hypertension Category: Medical Qualifiers: Hypertension type: primary hypertension Qualified Code(s): I10 - Essential (primary) hypertension Plan Maday has longstanding hypertension. She did not tolerate metoprolol due to development of emotional lability. She is currently on valsartan 320 mg daily. I asked her to keep off hydrochlorothiazide for now. She has history of renal calculi. She is off fluid restriction . She has strong family history hypertension. She denied any other vascular risk factors or active vascular disease. She may need Doppler of her renal arteries with time, if needed. She can continue Valsartan 320 mg daily in the morning along with carvedilol 12.5 mg bid. I reduced her Diltiazem to 30 mg AM and 60 mg PM and is planning to wean her off due to side effects she is mentioning from it. I started her Spironolactone 25 mg daily. She should continue low sodium in the diet. She may need MRI brain/ Neurology consult if her head symptoms persists. Answered all questions. Medications: New spironolactone 25 mg PO DAILY 90 tabs 3RF spironolactone 25 mg PO DAILY 90 tabs 3RF Changed From carvedilol 12.5 mg (2 x 6.25 mg) PO BID 60 tabs 3RF To carvedilol 12.5 mg PO BID 180 tabs 3RF 90 days Coding Level of Care Code Est Pt Level 4 (78476) Diagnoses Primary hypertension I10 Hypertension type: primary hypertension
--- OUTSIDE RECORDS SUMMARY | 2025-05-16 15:01 | XMS_ITS | Patient Health Record ---
Author Organization [facility] Address [address] [place] [address] Care Team Providers Care Assembler Leather Goods Name Role Phone Jaden HERNANDEZ, Spencer Primary Care Provider Dany Regan Unavailable [phone] Allergies Allergen (clinical drug ingredient) Drug/Non Drug Allergy documented on EMR Reaction Allergy Type Onset Date Status Tetracycline HCl Unknown Drug Allergy Active Lidocaine [...] Problem Status W/U Status Risk Notes Problem 9020630 Diverticulitis o f large intestine without perforation or abscess without bleeding (K57.32) Active confirmed Problem 702483828 Encounter for screening for malignant neoplasm of colon (Z12.11) Active confirmed Problem 128993693 Gastroesophageal reflux disease without esophagitis (K21.9) Active confirmed Problem 522573340 Elevated liver enzymes (R74.8) Active confirmed Problem Diverticulitis o f colon (K57.32) Active confirmed Problem 015089336 NSAID long-term use (Z79.1) Active confirmed Problem 744883141 Hx of adenomatou s colonic polyps (Z86.010) Active confirmed Vital Signs Blood pressure diastolic 11 mm Hg 12/06/2024 Height 63.75 in 12/06/2024 Blood pressure systolic 111 mm Hg 12/06/2024 Weight 136 lbs 12/06/2024 BMI 23.53 kg/m2 12/06/2024 Encounters Encounter Location Date Provider Diagnosis [facility] [address] [place] [address] 12/06/2024 Dany Willis Diverticulitis of co laya K57.32 Assessments Encounter Date Diagnosis (ICD Code) Assessment Notes Treatment Notes Treatment Clinical Notes Section Notes 12/06/2024 Diverticulitis of colon (ICD-10 - K57.32) Repeat colonoscopy in 04/2026 Go on a liquid diet for 1 or 2 days if the diverticulitis flares up, but definitely go on antibiotics if not getting better Need [facility] scan in 2023 Overall, Maday [...] Date MEDICARE OF [place] [address] [facility] [place] [address] [id number] MADAY ARBOLEDA Self - patient is the insured [employer] ATT[employer] CLAIMS [address] [place] [address] [phone] [id number] MADAY ARBOLEDA Self - patient is the insured Medical (General) History Medical History History ICD Code 2003 and 05/07/2009 Colonoscopy--negative for polyps Tubular adenoma--removed in 2000 Internal hemorrhoids Diverticulosis-mild divertic ulitis of the distal descending/proximal sigmoid colon described on a CT scan in 12/2012, 11/2016, and 09/2018 GERD--EGD in 2003-small HH--no esophagit is, no Arevalo's Hiatal hernia Denies [place],DM,CVA,Lung disease,renal dise ase Osteoporosis Negative abdominal ultrasound in 01/2015--colonoscopy with sma ll tubular adenomas removed, diverticulosis, and internal hemorrhoids 01/2015-EGD with a small hiat al hernia, but no esophagitis nor Arevalo's esophagus Hx of kidney stones Hypertension Colonoscopy 04/2021 with a single tubular adenoma Diverticulitis 2023--had a CT at [facility] Surgical History Surgery Date(Month/Year) Hammer toe Hysterectomy w/removal of 1 ovary
--- OUTSIDE RECORDS SUMMARY | 2025-05-16 15:01 | XMS_ITS | Patient Health Record ---
[facility] Address [address] [place] [address] Care Team Providers Care Evaporative Cooler Installer Name Role Phone Spencer Stanley MD Primary Care Provider Sarabjit Caballero Unavailable [phone] Allergies Allergen (clinical drug ingredient) Drug/Non Drug [...] W/U Status Risk Notes Problem Plantar wart (73607288) Plantar wart (B07.0) Active confirmed Problem Onychomycosis (771556268) Onychomycosis (B35.1) Active confirmed Vital Signs Blood pressure diastolic 80 mm Hg 11/15/2024 Height 5 ft 4 in in 11/15/2024 Blood pressure systolic 120 mm Hg 11/15/2024 Weight 142 lbs 11/15/2024 BMI 24.37 kg/m2 11/15/2024 Procedures Procedure Date Ordered Date Performed Result Body Sit e 54379-[id number] NAIL, -11/15/2024 N/A 47882-Sfdw Destruction, -11/15/2024 N/A Encounters Encounter Location Date Provider Diagnosis [facility] [address] 11/15/2024 Sarabjit Manriquez Pain in left toe(s) M79.675 ; Onychomycosis B35.1 ; Right foot pain M79.671 ; Plantar wart B07.0 ; Pain in right ankle and joints of right foot M25.571 ; Bursitis of intermetatarsal bursa of right foot M77.51 and Metatarsalgia, right foot M77.41 [facility] [address] 11/15/2024 [facility]riquez [facility] [address] 11/17/2024 Sarabjit Manriquez Assessments Encounter Date Diagnosis [...] X ray : Foot, right 3V 09/25/2022 75657-HQSXCDI NAIL, 1-5 11/15/2024 38804-Pvdg Destruction, 1-14 11/15/2024 73328-Rgftjsdu Plate 12/08/2017 10268- Debride <25 sq cm 12/25/2017 Insurance Providers Payer Name Payer Address Payer Phone Subscriber Number Group Number Insured Name Patient Relationship to Insured Coverage Start Date Coverage End Date Medicare National Govt Svcs Inc [address] [place] [address] [id number] Maday Draper Self - patient is the insured [employer] [facility] [address] [place] [address] [id number] Maday Draper Self - patient is the insured Medical (General) History Medical History History ICD Code Diverticulosis Measles Mumps Chicken pox Osteoporosis Reflux ( GERD) Hypertension Elevated LFTs Vitamin D deficiency Hypercalciuria Tubular adenoma of colon Cataracts Surgical History Surgery Date(Month/Year) hysterectomy 1986 hammer toe 1998
== END 2025-05-16 15:14 | disposition home or self-care (01) ==
LOC: HO.HKA 14:10
PROVIDERS: PCP Internal Medicine; Visit Provider Internal Medicine Nephrology
DX: I10 Essential (primary) hypertension (principal)
CPT/HCPCS: 99214

== ENCOUNTER → 2025-05-16 14:10 | Outpatient (BNVA) | payer MEDICARE, SELFPAY | PROVIDERS: PCP Internal Medicine; Visit Provider Internal Medicine Nephrology | DX: I10 Essential (primary) hypertension (principal); Z79.899 Other long term (current) drug therapy | CPT/HCPCS: 99212 ==

== ENCOUNTER 2025-05-23 12:42 | Outpatient (AMB) | payer MEDICARE, SELFPAY ==
--- OUTSIDE RECORDS SUMMARY | 2025-04-13 06:15 | XMS_ITS ---
Author Organization Spencer Stanley MD Address [address] [place] [phone] Care Team Providers Care Brand Mgr Name Role Phone Spencer Stanley Primary Care [...] Omeprazole 20 MG TAKE 1 CAPSULE BY [facility] EVERY DAY 30 MINUTES BEFORE BREAKFAST for 90 Not-Taki ng Finacea 15 % 1 application Brooch And Bracelet Maker ally ONCE A DAY IN THE [...] Date Provider Diagnosis Spencer Stanley MD [address] [place] [address] Drive [address] [place] [phone] 04/13/2025 Spencer Stanley Essential hypertension I10 and Bakers cyst, right M71.21 Assessments Encounter Date Diagnosis (ICD Code) Assessment Notes Treatment Notes Treatment Clinical Notes Section Notes 04/13/2025 Essential hypertension (ICD-10 - I10) has just had a change in her bp meds, will continue current regiment 04/13/2025 Bakers cyst, right (ICD-10 - M71.21) THE ORDER WAS FAXED TO [facility] C[facility]TR[facility] FOR SCHEDULING Plan Of Treatment Medication [...] cyst, right THE ORDER WAS FAXED TO [facility] FOR SCHEDULING Pending Test Test Name Order Date US LEG RT VENOUS DOPPLER 04/13/2025 Next Appt Details Provider Name:Spencer correa, 01/08/2026 07:30:00 AM, [address] [place] [address], Suite [facility], [place], [place], [phone], Provider Name:Spencer correa, 01/15/2026 09:30:00 AM, [address] [place] [address], Suite [facility], [place], [place], [phone], Progress Notes * Maday ARBOLEDA MDOB:[birth year] (74 yo F)Acc No.[id number]:04/13/2025 Progress Notes Patient: Maday DESAI Provider: Neris Stanley MD :1950 A ge:74 Y S ex:Female Date:04/13/2025 Address:[address] [place] [address] Jose Fish [id number] Subjective: * Chief Complaints: * 3 MO [...] DOPPLER Notes: THE ORDER WAS FAXED TO [facility] FOR SCHEDULING * Procedure Codes: * * Sign off status: Completed true * Provider: Neris Stanley MD Date: 0 04/13/2025 Generated for Kwaku hernández/Jameson/eTransmitting on: 0 05/23/2025 01:52 PM EDT History and Physical Notes * [...]
[2025-05-23 12:48] VITALS: BP 170/80; PULSE 63; BMI 23.4
--- NOTE | 2025-05-23 12:48 | MHC.OFFVIS ---
Vital Signs 05/23/25 12:48 Height 5 ft 3 in Weight 132 lb 4.438 oz BMI 23.4 BP 170/80 H Blood Pressure Location Lt brachial Position Sitting Pulse 63 Pulse Source Pulse Oximeter Intake Visit Reasons: Follow up-High BP Concerns Allergies tetracycline (TETRACYCLINE) Allergy (Unknown, Verified 05/16/25 14:18) Rash, itchy epinephrine Allergy (Unknown, Uncoded 02/21/25 10:01) heart palpitations Medication List - Last Reconciled 05/23/25 by Junior Ortez MD acetaminophen ER (Tylenol Arthritis Pain) 650 mg PO Q8H PRN carvedilol 12.5 mg PO BID 90 days diltiazem HCl 120 mg PO TID spironolactone 25 mg PO DAILY valsartan 320 mg PO DAILY HPI Comments Details: Maday returns for follow-up. Few months back, she was seen in consultation. She had COVID last year in August and after that, she has not felt good. Has had hypertension in the past but apparently this got significantly worse after that COVID episode. She has tried numerous medications but aside various side effects and currently on originally includes diltiazem, valsartan, carvedilol and spironolactone. Spironolactone was the most recent medication. She has no clear-cut angina or anything definitively cardiac but various other concerns like head pressure, fatigue, loss of appetite, hand tingling extra. She thinks they are all medication related but highly doubt that is the case. As regard to other meds, it seems not on hydrochlorothiazide due to renal calculi. Metoprolol gave her emotional lability. With amlodipine, headache/fogginess. [facility] Medical History Hypertension History of kidney stones Hiatal hernia Osteoporosis GERD (gastroesophageal reflux disease) Surgical History History of blepharoplasty History of hammer toe correction Hx of hysterectomy History of esophagogastroduodenoscopy (EGD) Hx of colonoscopy Family History Mother Hypertension Kidney stone Father Cancer Social History Do you presently have visiting nurse or other home services: No Alcohol intake: never Patient Tobacco Use Status: Former Tobacco user Review of Systems Const Reports fatigue, Reports headache(s) and Denies weakness ENT Denies dizziness and Reports headache(s) Card Denies chest pain, Denies chest pain with activity, Denies syncope, Denies rapid heart rate, Denies pedal edema, Denies edema, Denies leg edema, Denies lightheadedness, Reports palpitations, Denies dyspnea, Denies dyspnea on exertion and Denies orthopnea Resp Denies cough, Denies dyspnea and Denies dyspnea on exertion GI Denies hematochezia and Denies change in stool character Musc Denies abnormal gait, Reports joint swelling, Denies muscle cramps, Denies muscle weakness, Denies numbness, Denies radiating pain into limb and Reports tingling Neuro Denies abnormal gait, Denies dizziness, Denies syncope, Reports headache(s), Denies numbness, Reports tingling and Denies weakness Psych Reports change in appetite Endo Reports fatigue and Reports palpitations Physical Exam Vital Signs: Last Vital Signs Pulse 63 05/23/25 12:48 BP 170/80 H 05/23/25 12:48 BMI result Body Mass Index 23.4 Const General: comfortable and no acute distress Orientation/consciousness: patient oriented x3 HEENT Other: Unremarkable Head: Yes normal to inspection Neck Neck: Yes normal visual inspection Chest Chest palpation & inspection: normal inspection of the chest Resp Auscultation: clear to auscultation bilaterally Cardio Palpation: normal PMI Heart sounds: S1 normal heart sound present, S2 normal heart sound present, no gallops, no murmurs and no rubs GI Palpation (GI): Soft to palpation Back/Spine/Pelvis Other: unremarkable Skin General skin exam: no rashes or lesions noted Neuro General: patient oriented x3 Extrem General: Yes normal to inspection Psych Mental Status: mental status grossly normal Assessment & Plan Assessment & Plan (1) Hypertension: Code(s): I10 - Essential (primary) hypertension Category: Medical Qualifiers: Hypertension type: primary hypertension Qualified Code(s): I10 - Essential (primary) hypertension Plan Cardiac studies reviewed. In the EKG, sinus rhythm, sinus arrhythmia, possible left atrial enlargement and possible old septal infarct but more likely from body habitus. Echocardiogram with LVEF of 60-65%. Mild diastolic dysfunction but otherwise unremarkable. Exercise stress echocardiogram unremarkable at 7 METS exercise capacity. In the Holter, underlying rhythm is sinus with an average rate of 59/Min. Rare supraventricular/ventricular ectopy. Nighttime pauses, longest 3.8 seconds. Overall, poorly controlled hypertension with medication intolerances. However, have a doubt if these are indeed true side effects. Suspect a lot of her symptoms like head pounding extra could be just from uncontrolled hypertension itself as opposed to the blood pressure medications. We discussed about this in great detail today. We could possibly increase the carvedilol dose but she may develop bradycardia and she would like to avoid that. Other option would be something like hydralazine and not clear if it has been tried before. We could also increase the spironolactone dosing in the future as she seems to be tolerating that well. Patient felt that she would rather consolidate her blood pressure medication management with her mainspring winder and hence no changes were eventually made. Other option would also be to consider renal denervation therapy and she we will discuss that with the mainspring winder. She will call us as needed otherwise. Total time spent including review of data, counseling, documentation, coordination of care-32 minutes. Discussion Notes I discussed with the patient the potential benefits and risks of renal nerve ablation for her resistant hypertension, emphasizing that it may not normalize her blood pressure but could lower it by a few points. We reviewed her current medication regimen and the possibility of increasing carvedilol dosage, while monitoring for side effects such as bradycardia. I advised her to continue her follow-up with Dr. Nichols. Patient was informed and verbally consented to the use of an ambient scribe for clinic note documentation during this visit. Coding Level of Care Code Est Pt Level 4 (72684) Complex EM visit Add On G2211 Diagnoses Primary hypertension I10 Hypertension type: primary hypertension
--- OUTSIDE RECORDS SUMMARY | 2025-05-23 13:52 | XMS_ITS | Patient Health Record ---
[facility] Address [address] [place] [address] Care Team Providers Care Iron Carrier Name Role Phone Spencer Stanley MD Primary Care Provider Sarabjit Caballero Unavailable [phone] Allergies Allergen (clinical drug ingredient) Drug/Non Drug [...] W/U Status Risk Notes Problem Plantar wart (B07.0) Active confirmed Problem Onychomycosis (565796700) Onychomycosis (B35.1) Active confirmed Vital Signs Blood pressure diastolic 80 mm Hg 11/15/2024 Height 5 ft 4 in in 11/15/2024 Blood pressure systolic 120 mm Hg 11/15/2024 Weight 142 lbs 11/15/2024 BMI 24.37 kg/m2 11/15/2024 Procedures Procedure Date Ordered Date Performed Result Body Sit e [id number]-[id number] NAIL, 1-11/15/2024 N/A 70108-Zidx Destruction, -11/15/2024 N/A Encounters Encounter Location Date Provider [facility] [address] 11/15/2024 Sarabjit Manriquez Pain in left toe(s) M79.675 ; Onychomycosis B35.1 ; Right foot pain M79.671 ; Plantar wart B07.0 ; Pain in right ankle and joints of right foot M25.571 ; Bursitis of intermetatarsal bursa of right foot M77.51 and Metatarsalgia, right foot M77.[address] [facility] [address] 11/15/2024 Sarabjit Manriquez [facility] [address] 11/17/2024 Sarabjit Manriquez Assessments Encounter Date Diagnosis [...] X ray : Foot, right 3V 09/25/2022 34525-[id number] NAIL, 1-5 11/15/2024 24558-Zjmi Destruction, 1-14 11/15/2024 66659-Jtcedipw Plate 12/08/2017 64670- Debride <25 sq cm 12/25/2017 Insurance Providers Payer Name Payer Address Payer Phone Subscriber Number Group Number Insured Name Patient Relationship to Insured Coverage Start Date Coverage End Date Medicare National Govt Svcs Inc [address] [place] [address] [id number] Maday Draper Self - patient is the insured [employer] [facility] [address] [place] [address] [id number] Maday Draper Self - patient is the insured Medical (General) History Medical History History ICD Code Diverticulosis Measles Mumps Chicken pox Osteoporosis Reflux ( GERD) Hypertension Elevated LFTs Vitamin D deficiency Hypercalciuria Tubular adenoma of colon Cataracts Surgical History Surgery Date(Month/Year) hysterectomy 1986 hammer toe 1998
--- OUTSIDE RECORDS SUMMARY | 2025-05-23 13:52 | XMS_ITS | Patient Health Record ---
Author Organization [facility] Address [address] [place] [address] Care Team Providers Care Communications Project Lead Name Role Phone Spencer Stanley MD Primary Care Provider Dany Regan Unavailable [phone] Allergies Allergen (clinical drug ingredient) Drug/Non Drug [...] Problem Status W/U Status Risk Notes Problem 4720186 Diverticulitis o f large intestine without perforation or abscess without bleeding (K57.32) Active confirmed Problem 108703574 Encounter for screening for malignant neoplasm of colon (Z12.11) Active confirmed Problem 189678326 Gastroesophageal reflux disease without esophagitis (K21.9) Active confirmed Problem 859428095 Elevated liver enzymes (R74.8) Active confirmed Problem Diverticulitis o f colon (K57.32) Active confirmed Problem 158080842 NSAID long-term use (Z79.1) Active confirmed Problem 068393313 Hx of adenomatou s colonic polyps (Z86.010) Active confirmed Vital Signs Blood pressure diastolic 11 mm Hg 12/06/2024 Height 63.75 in 12/06/2024 Blood pressure systolic 111 mm Hg 12/06/2024 Weight 136 lbs 12/06/2024 BMI 23.53 kg/m2 12/06/2024 Encounters Encounter Location Date Provider Diagnosis [facility] [address] [place] [address] 12/06/2024 Dany Willis Diverticulitis of co laya K57.32 Assessments Encounter Date Diagnosis (ICD Code) Assessment Notes Treatment Notes Treatment Clinical Notes Section Notes 12/06/2024 Diverticulitis of colon (ICD-10 - K57.32) Repeat colonoscopy in 04/2026 Go on a liquid diet for 1 or 2 days if the diverticulitis flares up, but definitely go on antibiotics if not getting better Need [facility] CT scan in 2023 Overall, [...] Date MEDICARE OF [place] [address] [facility] [place] [address] [id number] MADAY ARBOLEDA Self - patient is the insured MED[employer] ATTN CLAIMS [address] [place] [address] [id number] ROBLESMADAY ONEIL Self - patient is the insured Medical (General) History Medical History History ICD Code 2003 and 05/07/2009 Colonoscopy--negative for polyps Tubular adenoma--removed in 2000 Internal hemorrhoids Diverticulosis-mild divertic ulitis of the distal descending/proximal sigmoid colon described on a CT scan in 12/2012, 11/2016, and 09/2018 GERD--EGD in 2003-small HH--no esophagit is, no Arevalo's Hiatal hernia Denies [place],DM,CVA,Lung disease,renal dise ase Osteoporosis Negative abdominal ultrasound in 01/2015--colonoscopy with sma ll tubular adenomas removed, diverticulosis, and internal hemorrhoids 01/2015-EGD with a small hiat al hernia, but no esophagitis nor Arevalo's esophagus Hx of kidney stones Hypertension Colonoscopy 04/2021 with a single tubular adenoma Diverticulitis 2023--had a CT at [facility] Surgical History Surgery Date(Month/Year) Hammer toe Hysterectomy w/removal of 1 ovary
== END 2025-05-23 13:18 | disposition home or self-care (01) ==
LOC: HO.HCS 12:42
PROVIDERS: PCP Internal Medicine; Visit Provider Internal Medicine
DX: I10 Essential (primary) hypertension (principal)
CPT/HCPCS: 99214; G2211

== ENCOUNTER → 2025-05-23 12:42 | Outpatient (BNVA) | payer MEDICARE, SELFPAY | PROVIDERS: PCP Internal Medicine; Visit Provider Internal Medicine | DX: I10 Essential (primary) hypertension (principal) | CPT/HCPCS: 99212 ==

== ENCOUNTER 2025-05-31 10:17 | Outpatient (AMB) | payer MEDICARE, SELFPAY ==
--- OUTSIDE RECORDS SUMMARY | 2025-02-14 11:03 | XMS_ITS ---
Author Organization Spencer Stanley MD Address [address] [place] [phone] Care Team Providers Care Gauge Machine Operator Name Role Phone Spencer Stanley Primary Care Provider REASON FOR VISIT several issues Encounters Encounter Location Date Provider Diagnosis Spencer Stanley MD [address] [place] [address] [place] [phone] 02/14/2025 Spencer Stanley Plan Of Treatment Next Appt Details Provider Name:Spencer correa, 01/08/2026 07:30:00 AM, [address] [place] [address], [address], [phone], Provider Name:Spencer correa, 01/15/2026 09:30:00 AM, [address] [place] [address], [address], [phone], Progress Notes * Maday ARBOLEDA MDOB:[birth year] (74 yo F)Acc No.[id number]:02/14/2025 Patient: Ayan GAMELINARaquel Maday Mario :1950 A ge:74 Y S ex:Female Address:[address] [place] [address], [place] [address] * true * Date: Generated for Kwaku hernández/Jameson/eTransmitting on: 0 05/31/2025 11:18 AM EDT
--- NOTE | 2025-05-31 10:25 | HO.NEPHOV ---
Vital Signs 05/31/25 10:28 Height 5 ft 3 in Weight 136 lb 4 oz BMI 24.1 BP 156/72 H Blood Pressure Location Rt brachial Position Sitting Pulse 56 Pulse Source Pulse Oximeter Pulse Oximetry (%) 98 Oxygen Delivery Method Room Air Intake Visit Reasons: 2wk follow up-Conf Multiple Drum Sander Helper Required: No Accompanied by: Spouse Allergies tetracycline (TETRACYCLINE) Allergy (Unknown, Verified 05/31/25 10:27) Rash, itchy epinephrine Allergy (Unknown, Uncoded 02/21/25 10:01) heart palpitations HPI Comments Details: Maday was seen in follow up for hypertension. She is known to hypertension for a while and has been on hydrochlorothiazide bit she had been taking regularly without much side effects. She also is known to renal calculi. Her blood pressure started getting fluctuant, more so after COVID infection. She had to come off hydrochlorothiazide given hyponatremia, which has normalized now. Subsequently she was started on valsartan and the dose of which was maximized now. She had been tolerating that without much side effects. Her blood pressure control continued to be suboptimal with intermittent resting tachycardia and chest pressure symptoms without any reason. She was started on metoprolol of the time but she developed emotional lability as well as tiredness and it was discontinued. She has been started on 2.5 mg amlodipine at that time. She has been having some headache/ foggy head which she was attributing to amlodipine. She is not known to have any underlying thyroid disorders. She has no history of renal failure, liver disease or heart failure. She denied any diagnosis of depression but gets anxious at times. She is not known to have any hyperkalemia, edema. She denies drinking excessive fluid or alcohol. She has no history of any malignancy. Diltiazem was eventually added to the regimen but she was not tolerating the higher dose. Dose was reduced recently and she felt better but still complaining about ringing in the ear and variety of symptoms intermittently . She has seen cardiology. Her dose of short acting Diltiazem was adjusted at the last visit. She still C/O unexplainable intermittent inconsistent symptoms which she tries to attribute to BP medications. She feels that some of her symptoms are due to Diltiazem. Her BP is better and her symptoms are better after cutting back on Diltiazem and when Spironolactone has been introduced. PFSH Medical History Hypertension History of kidney stones Hiatal hernia Osteoporosis GERD (gastroesophageal reflux disease) Surgical History History of blepharoplasty History of hammer toe correction Hx of hysterectomy History of esophagogastroduodenoscopy (EGD) Hx of colonoscopy Family History Mother Hypertension Kidney stone Father Cancer Social History Do you presently have visiting nurse or other home services: No Alcohol intake: never Patient Tobacco Use Status: Former Tobacco user Review of Systems Const All systems reviewed & are unremarkable except as noted in HPI and below Physical Exam Vital Signs: Last Vital Signs Pulse 56 05/31/25 10:28 BP 156/72 H 05/31/25 10:28 Pulse Ox 98 05/31/25 10:28 Oxygen Delivery Method Room Air 05/31/25 10:28 BMI result Body Mass Index 24.1 Const General: comfortable and no acute distress Orientation/consciousness: patient oriented x3 HEENT Head: Yes normocephalic Mouth: Normal oral and palatal mucosa present Eyes EOM: EOMs intact bilaterally Neck Neck: Yes supple Resp Auscultation: clear to auscultation bilaterally Cardio Jugular venous distension: no JVD Rate: regular rate GI Palpation (GI): Soft to palpation Auscultation: normal bowel sounds General: Yes no CVA tenderness Back/Spine/Pelvis Back: no CVA tenderness Skin General skin exam: no rashes or lesions noted Neuro General: patient oriented x3 and moves all extremities Extrem General: Yes no pedal edema Assessment & Plan Assessment & Plan (1) Hypertension: Code(s): I10 - Essential (primary) hypertension Category: Medical Qualifiers: Hypertension type: primary hypertension Qualified Code(s): I10 - Essential (primary) hypertension Plan Maday has longstanding hypertension. She did not tolerate metoprolol due to development of emotional lability. She is currently on valsartan 320 mg daily. I asked her to keep off hydrochlorothiazide for now. She has history of renal calculi. She is off fluid restriction . She has strong family history hypertension. She denied any other vascular risk factors or active vascular disease. She may need Doppler of her renal arteries with time, if needed. She can continue Valsartan 320 mg daily in the morning along with carvedilol 12.5 mg bid. I discontinued her Diltiazem t30 mg AM but could continue 60 mg PM and is planning to wean her off due to side effects she is mentioning from it. She could continue Spironolactone 25 mg daily which I may increase based on serum K . She should continue low sodium in the diet. She may need MRI brain/ Neurology consult if her head symptoms persists. Answered all questions. Orders: Orders Creatinine Today I10 - Essential (primary) hypertension Electrolytes Today I10 - Essential (primary) hypertension Blood Urea Nitrogen Today I10 - Essential (primary) hypertension US renal BI 2 Weeks I10 - Essential (primary) hypertension US renal doppler 2 Weeks I10 - Essential (primary) hypertension Coding Level of Care Code Est Pt Level 4 (23280) Diagnoses Primary hypertension I10 Hypertension type: primary hypertension
[2025-05-31 10:28] VITALS: BP 156/72; PULSE 56; O2SAT 98; BMI 24.1
--- OUTSIDE RECORDS SUMMARY | 2025-05-31 11:18 | XMS_ITS | Clinical Summary ---
Author Organization [facility] Address [address] [address] Phone Care Team Providers Care Physical Sciences Instructor Name Role Phone Spencer Stanley MD Primary Care Provider Allergies Active Allergy Reactions Criticality Noted Date Comments Tetracycline 07/19/2024 Itchy Medications estradioL (ESTRACE) 0.01 % (0.1 mg/gram) vaginal cream INSERT 1 GRAM VAGINALLY 2 TIMES EVERY WEEK 4 Active valsartan (DIOVAN) 320 MG tablet Take 1 tablet by mouth every morning. 4 Active hydroCHLOROthia zide 12.5 mg capsule Take 12.5 mg by mouth every morning. 4 Active naproxen (NAPROSYN) 500 MG tablet Take 1 tablet (500 mg total) by mouth 2 (two) times a day for 3 days. Then twice daily as needed for pain, inflammation 20 tablet 4 Active amLODIPine (NORVASC) 2.5 MG tablet Take 1 tablet by mouth every morning. 4 Active amLODIPine (NORVASC) 5 MG tablet Take 1 tablet by mouth every morning. 4 Active amoxicillin-cla vulanate (AUGMENTIN) 875-125 mg per tablet Take 1 tablet by mouth 2 (two) times a day. 4 Active dilTIAZem (CARDIZEM SR) 60 MG 12 hr capsule Take 1 capsule by mouth every morning. 4 Active TIADYLT ER 120 mg 24 hr capsule TAKE 1 CAPSULE BY MOUTH DAILY AT NIGHT 4 Active metoprolol succinate (TOPROL-XL) 50 MG 24 hr tablet Take 1 tablet by mouth every morning. 4 Active ketoconazole (NIZORAL) 2 % shampoo APPLY TOPICALLY 2 TIMES A WEEK DIRECTED Active Active Problems No known active problems Immunizations No known immunizations Social History Tobacco Use Types Packs/Day Years Used Date Smoking Tobacco: Former Cigarettes Smokeless Tobacco: Never Tobacco Cessation:Counseling Given: Not Answered Education Answer Date Recorded Are you interested [...] on file Sexual Orientation Not on file Last Filed Vital Signs Vital Sign Reading Time Taken Comments Blood Pressure 163/90 11/07/2024 1:32 PM EST Pulse 83 11/07/2024 1:32 PM EST Temperature 37.2 C (99 F) 11/07/2024 1:32 PM EST Respiratory Rate 16 11/07/2024 1:32 PM EST Oxygen Saturation 97% 11/07/2024 1:32 PM EST Inhaled Oxygen Concentration - - Weight - - Height - - Body Mass Index - - Plan of Treatment Health Maintenance Due Date Last Done Comments Adult Td,Tdap Booster 1948 CREATININE LEVEL 1948 LIPID PANEL 1948 POTASSIUM LEVEL 1948 DEPRESSION SCREENING 1960 SMOKING Hx and SMOKELESS TOBACCO SCREENING 1961 HEPATITIS C SCREENING 1966 OSTEOPOROSIS SCREENING INITIAL (ONE-TIME) 2013 PNEUMOCOCCAL VACCINES (50+ years) (2 of 2 - PCV) 05/28/2021 05/28/2020 RSV VACCINE (1 - 1-dose 75+ series) 2023 COVID-19 VACCINE (2023- season) 2025 10/20/2024, 09/17/2023, 08/21/2022, Additional history exists ZOSTER VACCINES Completed 05/24/2019, 12/11, 08/28/2014 HEPATITIS A VACCINES Aged Out No long er eligible based on patient's age to complete this topic HIB VACCINES Aged Out No longer eligi ble based on patient's age to complete this topic MENINGOCOCCAL VACCINES (ACWY) Aged Out No longer eligible based on patient's age to complete this topic MENINGOCOCCAL VACCINES (B) Aged Out N o longer eligible based on patient's age to complete this topic Medical Devices Not on file Insurance MEDICARE PART A & B [employer] MED[employer] SUPPLEMENT MEDICARE PART A & B [employer] SUPPLEMENT MEDICARE PART A & B [employer] MEDEX SUPPLEMENT MEDICARE PART A & [place] [address] [place] [address] MEDEX SUPPLEMENT MEDICARE PART A & B [facility] MEDEX SUPPLEMENT MEDICARE PART A & B [employer] MEDEX SUPPLEMENT Care Teams Physical Sciences Instructor Relationship Specialty Start Date End Date Spencer Stanley MD [address] [place] [address] Dr CAMARGO [place], [place] [id number] PCP - General Internal Medicine 07/19/24 Additional Source Comments The information contained in this document represents components of the legal health record. It is not the complete legal health record.[facility]
--- OUTSIDE RECORDS SUMMARY | 2025-05-31 11:18 | XMS_ITS | Patient Health Record ---
Author Organization [facility] Address [address] [place] [address] Care Team Providers Care Artificial Cherry Maker Name Role Phone Spencer Stanley MD Primary Care Provider Dany Regan Unavailable [phone] Allergies Allergen (clinical drug ingredient) Drug/Non Drug [...] Problem Status W/U Status Risk Notes Problem 2788744 Diverticulitis o f large intestine without perforation or abscess without bleeding (K57.32) Active confirmed Problem 780013805 Encounter for screening for malignant neoplasm of colon (Z12.11) Active confirmed Problem 695843990 Gastroesophageal reflux disease without esophagitis (K21.9) Active confirmed Problem 054026592 Elevated liver enzymes (R74.8) Active confirmed Problem Diverticulitis o f colon (K57.32) Active confirmed Problem 903541001 NSAID long-term use (Z79.1) Active confirmed Problem 571643935 Hx of adenomatou s colonic polyps (Z86.010) Active confirmed Vital Signs Blood pressure diastolic 11 mm Hg 12/06/2024 Height 63.75 in 12/06/2024 Blood pressure systolic 111 mm Hg 12/06/2024 Weight 136 lbs 12/06/2024 BMI 23.53 kg/m2 12/06/2024 Encounters Encounter Location Date Provider Diagnosis [facility] [address] [place] [address] 12/06/2024 Dany Willis Diverticulitis of co laya K57.32 Assessments Encounter Date Diagnosis (ICD Code) Assessment Notes Treatment Notes Treatment Clinical Notes Section Notes 12/06/2024 Diverticulitis of colon (ICD-10 - K57.32) Repeat colonoscopy in 04/2026 Go on a liquid diet for 1 or 2 days if the diverticulitis flares up, but definitely go on antibiotics if not getting better Need [facility] CT scan in 2023 Overall, Maday presently [...] Date MEDICARE OF [place] [address] [facility] [place] [address] [phone] [id number] MADAY ARBOLEDA Self - patient is the insured [employer] ATT[employer] CLAIMS [address] [place] [address] [id number] ROBLESMADAY ONEIL Self - patient is the [...] tubular adenoma Diverticulitis 2023--had a CT at [facility] Surgical History Surgery Date(Month/Year) Hammer toe Hysterectomy w/removal of 1 ovary
--- OUTSIDE RECORDS SUMMARY | 2025-05-31 11:18 | XMS_ITS | Patient Health Record ---
Author [facility] Address [address] [facility] [place] [address] Care Team Providers Care Stacker Attendant Name Role Phone Spencer Stanley MD Primary Care Provider Sarabjit Caballero Unavailable [phone] Allergies Allergen (clinical drug ingredient) Drug/Non Drug [...] W/U Status Risk Notes Problem Plantar wart (63079198) Plantar wart (B07.0) Active confirmed Problem Onychomycosis (300930501) Onychomycosis (B35.1) Active confirmed Vital Signs Blood pressure diastolic 80 mm Hg 11/15/2024 Height 5 ft 4 in in 11/15/2024 Blood pressure systolic 120 mm Hg 11/15/2024 Weight 142 lbs 11/15/2024 BMI 24.37 kg/m2 11/15/2024 Procedures Procedure Date Ordered Date Performed Result Body Sit e 34896-AOVBJEJ NAIL, -11/15/2024 N/A 64463-Udds Destruction, -11/15/2024 N/A Encounters Encounter Location Date Provider Diagnosis [facility] [address] 11/15/2024 Sarabjit Manriquez Pain in left toe(s) M79.675 ; Onychomycosis B35.1 ; Right foot pain M79.671 ; Plantar wart B07.0 ; Pain in right ankle and joints of right foot M25.571 ; Bursitis of intermetatarsal bursa of right foot M77.51 and Metatarsalgia, right foot M77.41 [facility] [address] 11/15/2024 [facility]it [facility]riquez [facility] [address] 11/17/2024 Sarabjit Manriquez Assessments Encounter Date Diagnosis [...] X ray : Foot, right 3V 09/25/2022 33239-ULTONYJ NAIL, 1-5 11/15/2024 10967-Ncff Destruction, 1-14 11/15/2024 47333-Osjlvvxt Plate 12/08/2017 28337- Debride <25 sq cm 12/25/2017 Insurance Providers Payer Name Payer Address Payer Phone Subscriber Number Group Number Insured Name Patient Relationship to Insured Coverage Start Date Coverage End Date Medicare National Govt Sv[employer] [address] [place] [address] [id number] Maday Draper Self - patient is the insured [employer] [facility] [address] [place] [address] [id number] Maday Draper Self - patient is the insured Medical (General) History Medical History History ICD Code Diverticulosis Measles Mumps Chicken pox Osteoporosis Reflux ( GERD) Hypertension Elevated LFTs Vitamin D deficiency Hypercalciuria Tubular adenoma of colon Cataracts Surgical History Surgery Date(Month/Year) hysterectomy 1986 hammer toe 1998
== END 2025-05-31 10:59 | disposition home or self-care (01) ==
LOC: HO.HKA 10:18
PROVIDERS: PCP Internal Medicine; Visit Provider Internal Medicine Nephrology
DX: I10 Essential (primary) hypertension (principal)
CPT/HCPCS: 99214

== ENCOUNTER → 2025-05-31 10:17 | Outpatient (BNVA) | payer MEDICARE, SELFPAY | PROVIDERS: PCP Internal Medicine; Visit Provider Internal Medicine Nephrology | DX: I10 Essential (primary) hypertension (principal) | CPT/HCPCS: 99212 ==

== ENCOUNTER 2025-05-31 11:08 | Outpatient (REF) | payer MEDICARE, SELFPAY ==
[2025-05-31 13:28] LABS: Anion Gap 10 (12-20); Blood Urea Nitrogen 19 mg/dL (9-16); Carbon Dioxide 25 mmol/L (22-29); Chloride 102 mmol/L (96-108); Estimated Glomerular Filt Rate > 60; Potassium 4.3 mmol/L (3.3-5.1); Sodium 133 mmol/L (135-145)
== END 2025-05-31 11:09 | disposition home or self-care (01) ==
LOC: HO.10HDL 11:08
PROVIDERS: Visit Provider Internal Medicine Nephrology
DX: I10 Essential (primary) hypertension (principal)
CPT/HCPCS: 36415; 80051; 82565; 84520

== ENCOUNTER 2025-06-21 09:06 | Outpatient (REF) | payer MEDICARE, SELFPAY ==
--- NOTE | ~2025-06-21 | US_ITS ---
CLINICAL HISTORY: I10 - Essential (primary) hypertension Renal duplex ultrasound Comparison: None provided Technique: Real time duplex ultrasound imaging was performed by the lean manufacturing specialist. Multiple pharmacy services representative static images were saved for review. Findings: Aorta: Patent with atherosclerotic change. 75.7 cm/s. Right kidney: Normal size and echotexture, 10.5 cm length. No calculus, focal lesion or hydronephrosis. Main renal artery peak systolic velocities: Proximal: 264 cm/s Mid: 147 cm/s Distal: 120 cm/s Interlobar resistive index: 0.67-0.79. RAR: 3.5. Main renal vein: Patent. Left kidney: The upper and lower poles are not well visualized due to limited acoustic window, grossly normal in size and echotexture, 9.1 cm length. No calculus, focal lesion or hydronephrosis. Main renal artery peak systolic velocities: Proximal: 88 cm/s Mid: 155 cm/s Distal: 121 cm/s Interlobar resistive index: 0.71-0.81. RAR: 1.2. Main renal vein: Patent. Impression: 1. 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 2. No apparent stenosis of left renal artery. 3. Mildly elevated resistive indices of left renal parenchyma. This document has been electronically signed by: Regina Stauffer MD on 06/21/2025 12:48:03
--- NOTE | ~2025-06-21 | US_ITS ---
CLINICAL HISTORY: I10 - Essential (primary) hypertension Renal duplex ultrasound Comparison: None provided Technique: Real time duplex ultrasound imaging was performed by the fireworks maker. Multiple sales representative business courses static images were saved for review. Findings: Aorta: Patent with atherosclerotic change. 75.7 cm/s. Right kidney: Normal size and echotexture, 10.5 cm length. No calculus, focal lesion or hydronephrosis. Main renal artery peak systolic velocities: Proximal: 264 cm/s Mid: 147 cm/s Distal: 120 cm/s Interlobar resistive index: 0.67-0.79. RAR: 3.5. Main renal vein: Patent. Left kidney: The upper and lower poles are not well visualized due to limited acoustic window, grossly normal in size and echotexture, 9.1 cm length. No calculus, focal lesion or hydronephrosis. Main renal artery peak systolic velocities: Proximal: 88 cm/s Mid: 155 cm/s Distal: 121 cm/s Interlobar resistive index: 0.71-0.81. RAR: 1.2. Main renal vein: Patent. Impression: 1. 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 2. No apparent stenosis of left renal artery. 3. Mildly elevated resistive indices of left renal parenchyma. This document has been electronically signed by: Regina Stauffer MD on 06/21/2025 12:48:03
--- OUTSIDE RECORDS SUMMARY | 2025-06-21 09:29 | XMS_ITS | Patient Health Record ---
Author Organization [facility] Address [address] [facility] [place] [address] Care Team Providers Care Trimmer And Reinforcer Name Role Phone Spencer Stanley MD Primary Care Provider Sarabjit Caballero Unavailable [phone] Allergies Allergen (clinical drug ingredient) Drug/Non Drug [...] W/U Status Risk Notes Problem Plantar wart (79091627) Plantar wart (B07.0) Active confirmed Problem Onychomycosis (617315392) Onychomycosis (B35.1) Active confirmed Vital Signs Blood pressure diastolic 80 mm Hg 11/15/2024 Height 5 ft 4 in in 11/15/2024 Blood pressure systolic 120 mm Hg 11/15/2024 Weight 142 lbs 11/15/2024 BMI 24.37 kg/m2 11/15/2024 Procedures Procedure Date Ordered Date Performed Result Body Sit e 77344-MYYICDE NAIL, -11/15/2024 N/A 21707-Rsyd Destruction, -11/15/2024 N/A Encounters Encounter Location Date Provider Diagnosis [facility] [address] 11/15/2024 Sarabjit Manriquez Pain in left toe(s) M79.675 ; Onychomycosis B35.1 ; Right foot pain M79.671 ; Plantar wart B07.0 ; Pain in right ankle and joints of right foot M25.571 ; Bursitis of intermetatarsal bursa of right foot M77.51 and Metatarsalgia, right foot M77.41 [facility] [address] 11/15/2024 [facility]quez [facility] [address] 11/17/2024 Sarabjit Manriquez Assessments Encounter Date Diagnosis [...] X ray : Foot, right 3V 09/25/2022 72639-FFPISPQ NAIL, 1-5 11/15/2024 96896-Wtee Destruction, 1-14 11/15/2024 53464-Lurbeybb Plate 12/08/2017 54009- Debride <25 sq cm 12/25/2017 Insurance Providers Payer Name Payer Address Payer Phone Subscriber Number Group Number Insured Name Patient Relationship to Insured Coverage Start Date Coverage End Date Medicare National Govt Svcs Inc [address] [place] [address] [id number] Maday Draper Self - patient is the insured [employer] [facility] [address] [place] [address] [id number] Maday Draper Self - patient is the insured Medical (General) History Medical History History ICD Code Diverticulosis Measles Mumps Chicken pox Osteoporosis Reflux ( GERD) Hypertension Elevated LFTs Vitamin D deficiency Hypercalciuria Tubular adenoma of colon Cataracts Surgical History Surgery Date(Month/Year) hysterectomy 1986 hammer toe 1998
--- OUTSIDE RECORDS SUMMARY | 2025-06-21 09:29 | XMS_ITS | Clinical Summary ---
Author Organization [facility] Address [address] [address] Phone Care Team Providers Care Behavioral Health Associate Name Role Phone Spencer Stanley MD [...] file Insurance MEDICARE PART A & B [employer] MEDEX SUPPLEMENT MEDICARE PART A & B [employer] MED[employer] SUPPLEMENT MEDICARE PART A & B [employer] MEDEX SUPPLEMENT MEDICARE PART A & [place] [address] MEDEX SUPPLEMENT MEDICARE PART A & B [facility] MEDEX SUPPLEMENT MEDICARE PART A & B [employer] MEDEX SUPPLEMENT Care Teams Behavioral Health Associate Relationship Specialty Start Date End Date Spencer Stanley MD [address] [place] [address] Dr CAMARGO [place], [place] [phone] PCP - General Internal Medicine 07/19/24 Additional Source Comments The information contained in this document represents components of the legal health record. It is not the complete legal health record.[facility]
== END 2025-06-21 09:07 | disposition home or self-care (01) ==
LOC: HO.HMGCX 09:06
PROVIDERS: PCP Internal Medicine; Visit Provider Internal Medicine Nephrology
DX: I10 Essential (primary) hypertension (principal); I70.1 Atherosclerosis of renal artery
CPT/HCPCS: 76775; 93975

== ENCOUNTER → 2025-06-21 09:16 | Outpatient (BNV) | payer MEDICARE, SELFPAY | PROVIDERS: PCP Internal Medicine; Visit Provider Radiology Diagnostic Radiology | DX: I70.1 Atherosclerosis of renal artery (principal); I10 Essential (primary) hypertension | CPT/HCPCS: 76775; 93975 ==

== ENCOUNTER 2025-06-28 14:18 | Outpatient (AMB) | payer MEDICARE, SELFPAY ==
--- OUTSIDE RECORDS SUMMARY | 2025-02-14 11:03 | XMS_ITS ---
Author Organization Spencer Stanley MD Address [address] [place] [phone] Care Team Providers Care Senior Receptionist Name Role Phone Spencer Stanley Primary Care Provider [phone] REASON FOR VISIT several issues Encounters Encounter Location Date Provider Diagnosis Spencer Stanley MD [address] [place] [address] [place] [phone] 02/14/2025 Spencer Stanley Plan Of Treatment Next Appt Details Provider Name:Spencer correa, 01/08/2026 07:30:00 AM, [address] [place] [address], [address], [phone], Provider Name:Spencer correa, 01/15/2026 09:30:00 AM, [address] [place] [address], [address], [phone], Progress Notes * Maday ARBOLEDA MDOB:[birth year] (74 yo F)Acc No.[id number]:02/14/2025 Patient: Ayan GAMELINARaquel Maday Mario :1950 A ge:74 Y S ex:Female Address:[address] [place] [address], [place] [address] * true * Date: Generated for Kwaku hernández/Jameson/eTransmitting on: 0 06/28/2025 03:16 PM EDT
--- NOTE | 2025-06-28 14:23 | HO.NEPHOV ---
Vital Signs 06/28/25 14:32 Height 5 ft 3 in Weight 139 lb 8 oz BMI 24.7 BP 144/70 H Blood Pressure Location Lt brachial Position Sitting Pulse 65 Pulse Source Pulse Oximeter Pulse Oximetry (%) 99 Oxygen Delivery Method Room Air Intake Visit Reasons: 3wk f/u-Conf Head Usher Required: No Accompanied by: Spouse Allergies tetracycline (TETRACYCLINE) Allergy (Unknown, Verified 06/28/25 14:32) Rash, itchy epinephrine Allergy (Unknown, Uncoded 02/21/25 10:01) heart palpitations HPI Comments Details: Maday was seen in follow up for hypertension. She is known to hypertension for a while and has been on hydrochlorothiazide bit she had been taking regularly without much side effects. She also is known to renal calculi. Her blood pressure started getting fluctuant, more so after COVID infection. She had to come off hydrochlorothiazide given hyponatremia, which has normalized now. Subsequently she was started on valsartan and the dose of which was maximized now. She had been tolerating that without much side effects. Her blood pressure control continued to be suboptimal with intermittent resting tachycardia and chest pressure symptoms without any reason. She was started on metoprolol of the time but she developed emotional lability as well as tiredness and it was discontinued. She has been started on 2.5 mg amlodipine at that time. She has been having some headache/ foggy head which she was attributing to amlodipine. She is not known to have any underlying thyroid disorders. She has no history of renal failure, liver disease or heart failure. She denied any diagnosis of depression but gets anxious at times. She is not known to have any hyperkalemia, edema. She denies drinking excessive fluid or alcohol. She has no history of any malignancy. Diltiazem was eventually added to the regimen but she was not tolerating the higher dose. Dose was reduced recently and she felt better but still complaining about ringing in the ear and variety of symptoms intermittently . She has seen cardiology. Her dose of short acting Diltiazem was adjusted at the last visit. She still C/O unexplainable intermittent inconsistent symptoms which she tries to attribute to BP medications. She feels that some of her symptoms are due to Diltiazem. Her BP is better and her symptoms are better after cutting back on Diltiazem and when Spironolactone has been introduced. Doppler of renal arteries showed right renal artery significant stenosis greater than 60% with no apparent stenosis of left renal artery & mildly elevated resistive indices of left renal parenchyma. [facility] Medical History Hypertension History of kidney stones Hiatal hernia Osteoporosis GERD (gastroesophageal reflux disease) Surgical History History of blepharoplasty History of hammer toe correction Hx of hysterectomy History of esophagogastroduodenoscopy (EGD) Hx of colonoscopy Family History Mother Hypertension Kidney stone Father Cancer Social History Do you presently have visiting nurse or other home services: No Alcohol intake: never Patient Tobacco Use Status: Former Tobacco user Review of Systems Const All systems reviewed & are unremarkable except as noted in HPI and below Physical Exam Const General: comfortable and no acute distress Orientation/consciousness: patient oriented x3 HEENT Head: Yes normocephalic Mouth: Normal oral and palatal mucosa present Eyes EOM: EOMs intact bilaterally Neck Neck: Yes supple Resp Auscultation: clear to auscultation bilaterally Cardio Jugular venous distension: no JVD Rate: regular rate GI Palpation (GI): Soft to palpation Auscultation: normal bowel sounds General: Yes no CVA tenderness Back/Spine/Pelvis Back: no CVA tenderness Skin General skin exam: no rashes or lesions noted Neuro General: patient oriented x3 and moves all extremities Extrem General: Yes no pedal edema Results Reviewed Nephrology Results: Sodium, (135-145) 133 mmol/L L 05/31/25 Potassium, (3.3-5.1) 4.3 mmol/L 05/31/25 Chloride, (96-108) 102 mmol/L 05/31/25 Carbon Dioxide, (22-29) 25 mmol/L 05/31/25 BUN, (9-16) 19 mg/dL H 05/31/25 Creatinine, (0.5-1.4) 0.65 mg/dL 05/31/25 Renal US 06/21/25 Assessment & Plan Assessment & Plan (1) Hypertension: Code(s): I10 - Essential (primary) hypertension Category: Medical Qualifiers: Hypertension type: primary hypertension Qualified Code(s): I10 - Essential (primary) hypertension Braydon Nassar has longstanding hypertension. She did not tolerate metoprolol due to development of emotional lability. She is currently on valsartan 320 mg daily. I asked her to keep off hydrochlorothiazide for now ( H/O Hyponatremia). She has history of renal calculi. She is off fluid restriction . She has strong family history hypertension. She denied any other vascular risk factors or active vascular disease. Doppler of her renal arteries showed right renal artery significant stenosis greater than 60% with no apparent stenosis of left renal artery & mildly elevated resistive indices of left renal parenchyma. She can continue Valsartan 320 mg daily in the morning along with carvedilol 12.5 mg bid. I discontinued her Diltiazem due to side effects she is mentioning from it. She could continue Spironolactone 25 mg twice daily . She should continue low sodium in the diet. Answered all questions. Orders: Orders Blood Urea Nitrogen 2 Months I10 - Essential (primary) hypertension Creatinine 2 Months I10 - Essential (primary) hypertension Electrolytes 2 Months I10 - Essential (primary) hypertension Electrolytes 1 Month I10 - Essential (primary) hypertension Blood Urea Nitrogen 1 Month I10 - Essential (primary) hypertension Creatinine 1 Month I10 - Essential (primary) hypertension Medications: Changed From spironolactone 25 mg PO QAM To spironolactone 25 mg PO BID 180 tabs 4RF 90 days Coding Level of Care Code Est Pt Level 4 (23441) Diagnoses Primary hypertension I10 Hypertension type: primary hypertension
[2025-06-28 14:32] VITALS: BP 144/70; PULSE 65; O2SAT 99; BMI 24.7
--- OUTSIDE RECORDS SUMMARY | 2025-06-28 15:16 | XMS_ITS | Clinical Summary ---
Author Organization [facility] Address [address] [address] Phone Care Team Providers Care Real Time Analyst Name Role Phone Spencer Stanley MD [...] file Insurance MEDICARE PART A & B [employer] MEDEX SUPPLEMENT MEDICARE PART A & B [employer] MEDEX SUPPLEMENT MEDICARE PART A & B [employer] MEDEX SUPPLEMENT MEDICARE PART A & [place] [address] [place] [address] MEDEX SUPPLEMENT MEDICARE PART A & B [facility] MEDEX SUPPLEMENT MEDICARE PART A & B [employer] MEDEX SUPPLEMENT Care Teams Real Time Analyst Relationship Specialty Start Date End Date Spencer Stanley MD [address] [place] [address] Dr [address]GO [place], [place] [id number] PCP - General Internal Medicine 07/19/24 Additional Source Comments The information contained in this document represents components of the legal health record. It is not the complete legal health record.[facility]
--- OUTSIDE RECORDS SUMMARY | 2025-06-28 15:17 | XMS_ITS | Patient Health Record ---
[facility] Address [address] [facility] [place] [address] Care Team Providers Care Field Agent Name Role Phone Spencer Stanley MD Primary Care Provider Sarabjit Caballero Unavailable [phone] Allergies Allergen (clinical drug ingredient) Drug/Non Drug [...] Plantar wart (B07.0) Active confirmed Problem Onychomycosis (906800395) Onychomycosis (B35.1) Active confirmed Vital Signs Blood pressure diastolic 80 mm Hg 11/15/2024 Height 5 ft 4 in in 11/15/2024 Blood pressure systolic 120 mm Hg 11/15/2024 Weight 142 lbs 11/15/2024 BMI 24.37 kg/m2 11/15/2024 Procedures Procedure Date Ordered Date Performed Result Body Sit e 45178-OJLWEQU NAIL, 1-11/15/2024 N/A 86518-Asfr Destruction, -11/15/2024 N/A Encounters Encounter Location Date [facility] [address] 11/15/2024 Sarabjit Manriquez Pain in left toe(s) M79.675 ; Onychomycosis B35.1 ; Right foot pain M79.671 ; Plantar wart B07.0 ; Pain in right ankle and joints of right foot M25.571 ; Bursitis of intermetatarsal bursa of right foot M77.51 and Metatarsalgia, right foot M77.[address] [facility] [address] 11/15/2024 [facility] [address] 11/17/2024 Sarabjit Manriquez Assessments Encounter Date Diagnosis [...] X ray : Foot, right 3V 09/25/2022 25872-ETHAOVP NAIL, 1-5 11/15/2024 18092-Mhbd Destruction, 1-14 11/15/2024 15408-Nyirkkjn Plate 12/08/2017 15532- Debride <25 sq cm 12/25/2017 Insurance Providers Payer Name Payer Address Payer Phone Subscriber Number Group Number Insured Name Patient Relationship to Insured Coverage Start Date Coverage End Date Medicare National Govt Sv[employer] [address] [place] [address] [id number] Maday Draper Self - patient is the insured [employer] [facility] [address] [place] [address] [id number] Maday Draper Self - patient is the insured Medical (General) History Medical History History ICD Code Diverticulosis Measles Mumps Chicken pox Osteoporosis Reflux ( GERD) Hypertension Elevated LFTs Vitamin D deficiency Hypercalciuria Tubular adenoma of colon Cataracts Surgical History Surgery Date(Month/Year) hysterectomy 1986 hammer toe 1998
--- OUTSIDE RECORDS SUMMARY | 2025-06-28 15:17 | XMS_ITS | Patient Health Record ---
Author Organization [facility] Address [address] [place] [address] Care Team Providers Care Rigger Apprentice Name Role Phone Spencer Stanley MD Primary Care Provider Dany Regan Unavailable [phone] Allergies Allergen (clinical drug ingredient) Drug/Non Drug [...] Problem Status W/U Status Risk Notes Problem 8270439 Diverticulitis o f large intestine without perforation or abscess without bleeding (K57.32) Active confirmed Problem 289425400 Encounter for screening for malignant neoplasm of colon (Z12.11) Active confirmed Problem 665259857 Gastroesophageal reflux disease without esophagitis (K21.9) Active confirmed Problem 681648645 Elevated liver enzymes (R74.8) Active confirmed Problem Diverticulitis o f colon (K57.32) Active confirmed Problem 464056226 NSAID long-term use (Z79.1) Active confirmed Problem 777082516 Hx of adenomatou s colonic polyps (Z86.010) Active confirmed Vital Signs Blood pressure diastolic 11 mm Hg 12/06/2024 Height 63.75 in 12/06/2024 Blood pressure systolic 111 mm Hg 12/06/2024 Weight 136 lbs 12/06/2024 BMI 23.53 kg/m2 12/06/2024 Encounters Encounter Location Date Provider Diagnosis [facility] [address] [place] [address] 12/06/2024 Dany Willis Diverticulitis of co laya K57.32 Assessments Encounter Date Diagnosis (ICD Code) Assessment Notes Treatment Notes Treatment Clinical Notes Section Notes 12/06/2024 Diverticulitis of colon (ICD-10 - K57.32) Repeat colonoscopy in 04/2026 Go on a liquid diet for 1 or 2 days if the diverticulitis flares up, but definitely go on antibiotics if not getting better Need [facility] CT scan in 2023 Overall, Maday [...] Date MEDICARE OF [place] [address] [facility] [place] [address] [id number] MADAY ARBOLEDA Self - patient is the insured MED[employer] ATT[employer] CLAIMS [address] [place] [address] [id number] ROBLESMADAY ONEIL Self - patient is the insured Medical (General) History Medical History History ICD Code 2003 and 05/07/2009 Colonoscopy--negative for polyps Tubular adenoma--removed in 2000 Internal hemorrhoids Diverticulosis-mild divertic ulitis of the distal descending/proximal sigmoid colon described on a CT scan in 12/2012, 11/2016, and 09/2018 GERD--EGD in 2003-small HH--no esophagit is, no Arevalo's Hiatal hernia Denies [place],DM,CVA,Lung disease,renal dise ase Osteoporosis Negative abdominal ultrasound in 01/2015--colonoscopy with sma ll tubular adenomas removed, diverticulosis, and internal hemorrhoids 01/2015-EGD with a small hiat al hernia, but no esophagitis nor Arevalo's esophagus Hx of kidney stones Hypertension Colonoscopy 04/2021 with a single tubular adenoma Diverticulitis 2023--had a CT at [facility] Surgical History Surgery Date(Month/Year) Hammer toe Hysterectomy w/removal of 1 ovary
== END 2025-06-28 15:00 | disposition home or self-care (01) ==
LOC: HO.HKA 14:18
PROVIDERS: PCP Internal Medicine; Visit Provider Internal Medicine Nephrology
DX: I10 Essential (primary) hypertension (principal)
CPT/HCPCS: 99214

== ENCOUNTER → 2025-06-28 14:18 | Outpatient (BNVA) | payer MEDICARE, SELFPAY | PROVIDERS: PCP Internal Medicine; Visit Provider Internal Medicine Nephrology | DX: I10 Essential (primary) hypertension (principal) | CPT/HCPCS: 99212 ==

== ENCOUNTER 2025-07-26 07:07 | Outpatient (REF) | payer MEDICARE, SELFPAY ==
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
--- OUTSIDE RECORDS SUMMARY | 2025-01-12 05:30 | XMS_ITS ---
Author Organization Spencer Stanley MD Address [address] [place] [phone] Care Team Providers Care Planting Machine Crewman Name Role Phone Spencer Stanley Primary Care Provider [phone] Allergies Allergen (clinical drug ingredient) Drug/Non Drug [...] t Reviewed date:01/12/2025 11:52:13 AM Interpretation: Performing Lab:[facility], [address] [place] [phone] Notes/Report: Urine, Clean Catch Color Urine Yellow Appearance Urine Clear PH 6.5 5.0-9.0 Glucose Urine UA Negative Negative mg/dL Urine Blood Negative Negative Specific [place] - Urine 1.010 1.005-1.025 Urine Protein Negative [...] 20 MG TAKE 1 CAPSULE BY MO [facility] EVERY DAY 30 MINUTES BEFORE BREAKFAST for [...] day Active Finacea 15 % 1 application Morals Squad Police Officer ally ONCE A DAY IN THE EVENING [...] Risk Notes Problem Macrocytosis - no anemia (077037500) Macrocytosis without anemia (D75.89) Active confirmed Vital Signs Blood pressure systolic 144 mm Hg 01/13/20 25 Blood pressure diastolic 72 mm Hg 025 Height 64 in 01/12/2025 Weight 141 lbs 01/12/2025 BMI 24.2 kg/m2 01/12/2025 Encounters Encounter Location Date Provider Diagnosis Spencer Stanley MD [address] [place] [address] [place] [phone] 01/12/2025 Spencer Stanley Essential hypertension I10 ; [...] Up: 3 Months, Reason: Provider Name:Spencer Mccullough marcosr, 01/08/2026 07:30:00 AM, [address], [address], [place], [phone], Provider Name:Spencer Mccullough marcosr, 01/15/2026 09:30:00 AM, [address], [address], [place], [phone], Progress Notes * Maday ARBOLEDA MDOB:[birth year] (74 yo F)Acc No.[id number]:01/12/2025 Patient: Maday DESAI Provider: Neris Stanley MD :1950 A ge:74 Y S ex:Female Date:01/12/2025 Address:[address] [place], [place] [phone] Subjective: * Chief Complaints: * C OMP [...] - mg/dL L ab:Liver Panel (Order Date - 01/05/2025) (Collection Date & Time - 01/05/2025 07:45 AM) Value Reference Range Bilirubin Direct 0.2 0.0-0.5 - mg/dL L ab:Comprehensive [place]. Panel Fast (Order Date 01/05/2025) (Collection Date [...] guaiac negative.? FEMALE GENITOURINARY: d one by pocket marker. EXTREMITIES: n o clubbing, cyanosis, or edema. [...] MD Date: 0 01/12/2025 Generated for Kwaku hernández/Jameson/Marilinitting on: 0 07/26/2025 07:09 AM EDT History and Physical Notes * HPI (History [...] stool guaiac negative FEMALE GENITOURINARY: done by pocket marker ORAL CAVITY: mucosa moist
--- OUTSIDE RECORDS SUMMARY | 2025-01-20 04:34 | XMS_ITS ---
Author Organization Spencer Stanley MD Address [address] [place] [phone] Care Team Providers Care Rolled Oats Mill Operator Name Role Phone Spencer Stanley Primary Care Provider REASON FOR VISIT US ABD orders Encounters Encounter Location Date Provider Diagnosis Spencer Stanley MD 10 [facility] [address] [place] [phone] 01/20/2025 Spencer Stanley Plan Of Treatment Next Appt Details Provider Name:Spencer correa, 01/08/2026 07:30:00 AM, [address] [place] [address], [address], [phone], Provider Name:Spencer correa, 01/15/2026 09:30:00 AM, [address] [place] [address], [address], [phone], Progress Notes * Maday ARBOLEDA MDOB:[birth year] (74 yo F)Acc No.[id number]:01/20/2025 Patient: Ayan GALEXUS Maday Mario :1950 A ge:74 Y S ex:Female Address:[address] [place] [address], [place] [address] * true * Date: Generated for Kwaku hernández/Jameson/eTransmitting on: 0 07/26/2025 07:08 AM EDT
--- OUTSIDE RECORDS SUMMARY | 2025-02-14 11:03 | XMS_ITS ---
Author Organization Spencer Stanley MD Address [address] [place] [phone] Care Team Providers Care Hospital Nurse Liaison Name Role Phone Spencer Stanley Primary Care Provider [phone] REASON FOR VISIT several issues Encounters Encounter Location Date Provider Diagnosis Spencer Stanley MD [address] [place] [address] [place] [phone] 02/14/2025 Spencer Stanley Plan Of Treatment Next Appt Details Provider Name:Spencer correa, 01/08/2026 07:30:00 AM, [address] [place] [address], [address], [phone], Provider Name:Spencer correa, 01/15/2026 09:30:00 AM, [address] [place] [address], [address], [phone], Progress Notes * Maday ARBOLEDA MDOB:[birth year] (74 yo F)Acc No.[id number]:02/14/2025 Patient: Ayan GALEXUS Maday Mario :1950 A ge:74 Y S ex:Female Address:[address] [place] [address], [place] [address] * true * Date: Generated for Kwaku hernández/Jameson/eTransmitting on: 0 07/26/2025 07:08 AM EDT
--- OUTSIDE RECORDS SUMMARY | 2025-02-23 10:15 | XMS_ITS ---
Author Organization Spencer Stanley MD Address [address] [place] [phone] Care Team Providers Care Filter Cleaner Name Role Phone Spencer Stanley Primary Care Provider [phone] Allergies Allergen (clinical drug ingredient) Drug/Non Drug Allergy documented on EMR Reaction Allergy Type Onset Date Status epinephrine (uncoded) heart palpitations Allergy Active tetracycline tetracycline (uncoded) rash Allergy Active REASON FOR VISIT BP Medications Medication SIG (Take, Route, Frequency, Duration) Notes Start Date End Date Status dilTIAZem HCl 60 MG as directed Orally Active Finacea 15 % 1 application Bulk Picker ally ONCE A DAY IN THE EVENING [...] Omeprazole 20 MG TAKE 1 CAPSULE BY [facility] EVERY DAY 30 MINUTES BEFORE BREAKFAST for 90 Not-Taki ng Valtrex 500 MG 1 tablet Orally ever y 12 hrs for 10 day(s) Not-Taking Vital Signs Blood pressure systolic 178 mm Hg 02/24/20 25 Blood pressure diastolic 80 mm Hg 025 Height 64 in 02/23/2025 Weight 138 lbs 02/23/2025 BMI 23.69 kg/m2 02/23/2025 weight is down 3 pounds [facility] e 01-12-25 Encounters Encounter Location Date Provider Diagnosis Spencer Stanley MD [address] [place] [address] Drive [address] [place], [place] [phone] 02/23/2025 Spencer Stanley Diverticulitis K57.9 2 ; [...] to get her bp controlled. to see foundry metallurgist again Plan Of Treatment Medication Medication Name [...] to get her bp controlled. to see foundry metallurgist again Next Appt Details Provider Name:Spencer correa, 01/08/2026 07:30:00 AM, [address] [place] [address], [address], [place], [place], [phone], Provider Name:Spencer correa, 01/15/2026 09:30:00 AM, [address] [place] [address], [address], [place], [place], [phone], Progress Notes * Maday ARBOLEDA MDOB:[birth year] (75 yo F)Acc No.[id number]:02/23/2025 Progress Notes Patient: Maday DESAI Provider: Neris Stanley MD :1950 A ge:74 Y S ex:Female Date:02/23/2025 Address:[address] [place], [place] [phone] Subjective: * Chief Complaints: * 1 . [...] an tolerate doxycycline without difficulty, Refuses flu [id number], colonoscopy 04/2009 - adenoma due in 5 [...] to get her bp controlled. to see foundry metallurgist again * * The named appointment provid er may or may not be the originator of this progress note, and it is not deemed complete until electronically signed by the appointment provider. Sign off status: Pending * Provider: Neris Stanley MD Date: 02/23/2025 Generated for Kwaku hernández/Jameson/Marilinitting on: 0 07/26/2025 [...]
--- OUTSIDE RECORDS SUMMARY | 2025-04-13 06:15 | XMS_ITS ---
Author Organization Spencer Stanley MD Address [address] [place] [phone] Care Team Providers Care Down Filler Name Role Phone Spencer Stanley Primary Care [...] Not-Taki ng Finacea 15 % 1 application Farmer [employer] ally ONCE A DAY IN THE EVENING [...] Date Provider Diagnosis Spencer Stanley MD [address] [place] [address] Drive [address] [place] [phone] 04/13/2025 Spencer Stanley Essential hypertension I10 and Bakers cyst, right M71.21 Assessments Encounter Date Diagnosis (ICD Code) Assessment Notes Treatment Notes Treatment Clinical Notes Section Notes 04/13/2025 Essential hypertension (ICD-10 - I10) has just had a change in her bp meds, will continue current regiment 04/13/2025 Bakers cyst, right (ICD-10 - M71.21) THE ORDER WAS FAXED TO [facility] [place] Plan Of Treatment Medication [...] cyst, right THE ORDER WAS FAXED TO [facility] Pending Test Test Name Order Date US LEG RT VENOUS DOPPLER 04/13/2025 Next Appt Details Provider Name:Spencer correa, 01/08/2026 07:30:00 AM, [address] [place] [address], Suite [facility], [place], [place], [phone], Provider Name:Spencer correa, 01/15/2026 09:30:00 AM, [address] [place] [address], Suite [facility], [place], [place], [phone], Progress Notes * Maday ARBOLEDA MDOB:[birth year] (74 yo F)Acc No.[id number]:04/13/2025 Progress Notes Patient: Maday DESAI Provider: Neris Stanley MD :1950 A ge:74 Y S ex:Female Date:04/13/2025 Address:[address] [place] [address] [place] [id number] Subjective: * Chief Complaints: * 3 MO [...] DOPPLER Notes: THE ORDER WAS FAXED TO [facility] * Procedure Codes: * * Sign off status: Completed true * Provider: Neris Stanley MD Date: 0 04/13/2025 Generated for Kwaku hernández/Jameson/eTransmitting on: 0 07/26/2025 07:09 AM EDT History [...]
--- OUTSIDE RECORDS SUMMARY | 2025-07-26 07:08 | XMS_ITS | Clinical Summary ---
Author Organization [facility] Address [address] [address] Phone Care Team Providers Care Explosion Welder Name Role Phone Spencer Stanley MD Primary [...] VACCINE (1 - 1-dose 75+ series) 2023 INFLUENZA VACCINE (#1) 2025 , 07/31/2023, 09/11/2022, Additional history exists COVID-19 VACCINE ( season) 2025 10/20/2024, 09/17/2023, 08/21/2022, Additional history [...] file Insurance MEDICARE PART A & B [place] [employer] MEDEX SUPPLEMENT MEDICARE PART A & B [facility] MEDEX SUPPLEMENT MEDICARE PART A & B [facility] MEDEX SUPPLEMENT MEDICARE PART A & B [employer] MEDEX SUPPLEMENT MEDICARE PART A & B [employer] MEDEX SUPPLEMENT MEDICARE PART A & B [facility] MEDEX SUPPLEMENT Care Teams Explosion Welder Relationship Specialty Start Date End Date Spencer Stanley MD [address] [place] [address] [place] [address] PCP - General Internal Medicine 07/19/24 Additional Source Comments The information contained in this document represents components of the legal health record. It is not the complete legal health record.[facility]
--- OUTSIDE RECORDS SUMMARY | 2025-07-26 07:09 | XMS_ITS | Patient Health Record ---
[facility] Address [address] [facility] [place] [address] Care Team Providers Care Legal Paraprofessional Name Role Phone Spencer Stanley MD Primary Care Provider Sarabjit Caballero Unavailable [phone] Allergies Allergen (clinical drug ingredient) Drug/Non Drug [...] W/U Status Risk Notes Problem Plantar wart (06781052) Plantar wart (B07.0) Active confirmed Problem Onychomycosis (072733746) Onychomycosis (B35.1) Active confirmed Vital Signs Blood pressure diastolic 80 mm Hg 11/15/2024 Height 5 ft 4 in in 11/15/2024 Blood pressure systolic 120 mm Hg 11/15/2024 Weight 142 lbs 11/15/2024 BMI 24.37 kg/m2 11/15/2024 Procedures Procedure Date Ordered Date Performed Result Body Sit e 75605-OINTWLM NAIL, -11/15/2024 N/A 96400-Vluv Destruction, -11/15/2024 N/A Encounters Encounter Location Date Provider Diagnosis [facility] [address] 11/15/2024 Sarabjit Manriquez Pain in left toe(s) M79.675 ; Onychomycosis B35.1 ; Right foot pain M79.671 ; Plantar wart B07.0 ; Pain in right ankle and joints of right foot M25.571 ; Bursitis of intermetatarsal bursa of right foot M77.51 and Metatarsalgia, right foot M77.41 [facility] [address] 11/15/2024 [facility] [address] 11/17/2024 Sarabjit Manriquez Assessments Encounter Date Diagnosis [...] X ray : Foot, right 3V 09/25/2022 68418-BADDOPA NAIL, 1-5 11/15/2024 46119-Drrz Destruction, 1-14 11/15/2024 45766-Atlkgwur Plate 12/08/2017 38110- Debride <25 sq cm 12/25/2017 Insurance Providers Payer Name Payer Address Payer Phone Subscriber Number Group Number Insured Name Patient Relationship to Insured Coverage Start Date Coverage End Date Medicare National Govt Svcs Inc [address] [facility] [place] [address] [id number] Maday Draper Self - patient is the insured [employer] [facility] [address] [place] [address] [id number] Maday Draper Self - patient is the insured Medical (General) History Medical History History ICD Code Diverticulosis Measles Mumps Chicken pox Osteoporosis Reflux ( GERD) Hypertension Elevated LFTs Vitamin D deficiency Hypercalciuria Tubular adenoma of colon Cataracts Surgical History Surgery Date(Month/Year) hysterectomy 1986 hammer toe 1998
--- OUTSIDE RECORDS SUMMARY | 2025-07-26 07:09 | XMS_ITS | Patient Health Record ---
Author Organization [facility] Address [address] [place] [address] Care Team Providers Care Log Washer Name Role Phone Spencer Stanley MD Primary Care Provider Dany Regan Unavailable [phone] Allergies Allergen (clinical drug ingredient) Drug/Non Drug [...] Problem Status W/U Status Risk Notes Problem 4009484 Diverticulitis o f large intestine without perforation or abscess without bleeding (K57.32) Active confirmed Problem 408358664 Encounter for screening for malignant neoplasm of colon (Z12.11) Active confirmed Problem 715414735 Gastroesophageal reflux disease without esophagitis (K21.9) Active confirmed Problem 742166693 Elevated liver enzymes (R74.8) Active confirmed Problem Diverticulitis of colon (076594408) Diverticulitis of colon (K57.32) Active confirmed Problem 788893998 NSAID long-term use (Z79.1) Active confirmed Problem 379511991 Hx of adenomatou s colonic polyps (Z86.010) Active confirmed Vital Signs Blood pressure diastolic 11 mm Hg 12/06/2024 Height 63.75 in 12/06/2024 Blood pressure systolic 111 mm Hg 12/06/2024 Weight 136 lbs 12/06/2024 BMI 23.53 kg/m2 12/06/2024 Encounters Encounter Location Date Provider Diagnosis [facility] [address] [place] [address] 12/06/2024 Dany Willis Diverticulitis of co laya K57.32 Assessments Encounter Date Diagnosis (ICD Code) Assessment Notes Treatment Notes Treatment Clinical Notes Section Notes 12/06/2024 Diverticulitis of colon (ICD-10 - K57.32) Repeat colonoscopy in 04/2026 Go on a liquid diet for 1 or 2 days if the diverticulitis flares up, but definitely go on antibiotics if not getting better Need [facility] CT scan in 2023 Overall, [...] Date MEDICARE OF [place] [address] [place] [address] [id number] MADAY ARBOLEDA Self - patient is the insured MED[employer] ATTN CLAIMS [address] [place] [address] [id number] ROBLESMADAY Self - patient is the insured Medical (General) History Medical History History ICD Code 2003 and 05/07/2009 Colonoscopy--negative for polyps Tubular adenoma--removed in 2000 Internal hemorrhoids Diverticulosis-mild divertic ulitis of the distal descending/proximal sigmoid colon described on a CT scan in 12/2012, 11/2016, and 09/2018 GERD--EGD in 2003-small HH--no esophagit is, no Arevalo's Hiatal hernia Denies [place],DM,CVA,Lung disease,renal dise ase Osteoporosis Negative abdominal ultrasound in 01/2015--colonoscopy with sma ll tubular adenomas removed, diverticulosis, and internal hemorrhoids 01/2015-EGD with a small hiat al hernia, but no esophagitis nor Arevalo's esophagus Hx of kidney stones Hypertension Colonoscopy 04/2021 with a single tubular adenoma Diverticulitis 2023--had a CT at [facility] Surgical History Surgery Date(Month/Year) Hammer toe Hysterectomy w/removal of 1 ovary
--- OUTSIDE RECORDS SUMMARY | 2025-07-26 07:10 | XMS_ITS | Patient Health Record ---
Author Organization Spencer Stanley MD Address [address] [place] [phone] Care Team Providers Care Creative Designer Name Role Phone Spencer Stanley Primary Care Provider Allergies Allergen (clinical drug ingredient) Drug/Non Drug Allergy documented on EMR Reaction Allergy Type Onset Date Status epinephrine (uncoded) heart palpitations Allergy Active tetracycline tetracycline (uncoded) rash Allergy Active Results Component Value Reference Range Notes Complete Blood Count Auto Di ff Reviewed date:01/05/2025 04:35:02 PM Interpretation: Performing Lab:[facility], [address] [place] [phone] Notes/Report: White Blood Count 5.0 4.8-10.8 X10*3/uL [...] 0.0-0.2 /100WBC Neutrophils Absolute Auto 2.4 2.0-8.3 x10*3/uL Imm Gran Abs Auto 0.01 0.00-0.03 X10*3/uL Lymphocytes Absolute Auto 2.0 1.2-4.9 X10*3/uL Monocytes Absolute Auto 0.4 0.1-1.2 X10*3/uL Eosinophils Absolute Auto 0.1 0.0-0.4 X10*3/uL Basophils Absolute Auto 0.0 0.0-0.2 X10*3/uL NRBC Abs Auto 0.000 0.0-0.012 X10*3/uL Comprehensive [place]. Panel Fa st Reviewed date:01/05/2025 12:43:17 PM Interpretation: Performing Lab:[facility], [address] [place] [phone] Notes/Report: Sodium 140 135-145 mmol/L Potassium 4.1 [...] Panel Reviewed date:01/05/2025 12:43:41 PM Interpretation: Performing Lab:[address] [address] Notes/Report: Bilirubin Direct 0.2 0.0-0.5 mg/dL Lipid Panel Reviewed date:01/05/2025 12:43:26 PM Interpretation: Performing Lab:[address] [address] Notes/Report: Triglycerides 59 <150 mg/dL Desirable Triglyceride: [...] Total Reviewed date:01/05/2025 12:43:34 PM Interpretation: Performing Lab:[address] [address] Notes/Report: Vitamin D 25-OH Total 62.4 >30 [...] confirmed with another method such as LC-MS/MS. Sodium Reviewed date:09/01/2024 12:26:42 PM Interpretation: Performing Lab:[address] [address] Notes/Report: Sodium 137 135-145 mmol/L Occult Blood, Stool, Guaiac Reviewed date:01/12/2025 10:30:48 AM Interpretation:Negative Performing Lab: Notes/Report: Negative Occult Blood, Stool, Guaiac Neg UA ClnCatch+Micro w/rflx Cul t Reviewed date:01/12/2025 11:52:13 AM Interpretation: Performing Lab:[address] [address] Notes/Report: Urine, Clean Catch Color Urine Yellow Appearance Urine Clear PH 6.5 5.0-9.0 Glucose Urine UA Negative Negative mg/dL Urine Blood Negative Negative Specific [place] - Urine 1.010 1.005-1.025 Urine Protein Negative Neg-Trace mg/dL Urine Ketones Negative Negative mg/dL Nitrite Urine Negative Negative Leukocyte Esterase Urine Negative Negative RBC Urine 0-2 0-2 /HPF WBC Urine 0-5 0-5 /HPF Squamous Epithelial Cell Urine 0-2 0-2 /HPF Bacteria Urine None Seen None Seen Hyaline Casts Urine 0-2 0-2 /LPF Electrolytes Reviewed date:09/22/2024 06:06:11 PM Interpretation: Performing Lab:[facility], [address] [place] [phone] Notes/Report: Sodium 137 135-145 mmol/L Potassium 4.4 3.3-5.1 mmol/L Chloride 105 96-108 mmol/L Carbon Dioxide 29 22-29 mmol/L Anion Gap 7 12-20 Uric Acid Reviewed date:09/22/2024 06:05:36 PM Interpretation: Performing Lab:[address] [address] Notes/Report: Uric Acid 2.6 2.4-5.7 mg/dL TSH reflex Free T4 Reviewed date:09/22/2024 06:05:26 PM Interpretation: Performing Lab:[facility], [address] [place] [phone] Notes/Report: TSH reflex Free T4 1.71 0.32-4.0 uIU/mL Aldosterone Reviewed date:10/03/2024 12:34:25 PM Interpretation: Performing Lab:[facility], [address] [place] [phone] Notes/Report: Aldosterone TNP Renin Reviewed date:09/30/2024 04:47:30 PM Interpretation: Performing Lab:[facility], [address] [place] [phone] Notes/Report: Renin 2.86 0.25-5.82 ng/mL/h This test was developed and its analytical performance characteristics have been determined by [facility] [place], [place]. It has not been cleared or approved by the U.S. Food and Drug Administration. This assay has been validated pursuant to the CLIA regulations and is used for clinical purposes. THIS TEST WAS PERFORMED AT: [facility] [address] PAT CUMMINGS MD,PHD Aldost/Renin Reviewed date:10/03/2024 12:35:02 PM Interpretation: Performing Lab:[facility], [address] [place] [phone] Notes/Report: Aldosterone 2 see note ng/dL Unable to flag abnormal result(s), please refer to reference range(s) below: Adult Reference Ranges for Aldosterone, LC/MS/MS: Upright 8:00 - 10:00 am < or = 28 ng/dL Upright 4:00 - 6:00 pm < or = 21 ng/dL Supine 8:00 - 10:00 am 3 - 16 ng/dL THIS TEST WAS PERFORMED AT: [facility] [address] PAT CUMMINGS MD,PHD Plasma Renin Activity 2.58 0.25-5.82 ng/mL/h Aldosterone/Renin Ratio 0.8 0.9-28.9 Ratio This test was developed and its analytical performance characteristics have been determined by [facility] [place], [place]. It has not been cleared or approved by the U.S. Food and Drug Administration. This assay has been validated pursuant to the CLIA regulations and is used for clinical purposes. THIS TEST WAS PERFORMED AT: [facility] [place] [id number] [place] [address] PAT CUMMINGS MD,PHD Metanephrines, Plasma Reviewed date:09/29/2024 05:20:12 PM Interpretation: Performing Lab:[facility], [address] [place] [phone] Notes/Report: Metanephrine, Free 47 <=57 pg/mL This test was developed and its analytical performance characteristics have been determined by [facility] [place]. It has not been cleared or approved by the U.S. Food and Drug Administration. This assay has been validated pursuant to the CLIA regulations and is used for clinical purposes. Normetanephrines, Free 208 <=148 pg/mL This test was developed and its analytical performance characteristics have been determined by [facility] [place]. It has not been cleared or approved by the U.S. Food and Drug Administration. This assay has been validated pursuant to the CLIA regulations and is used for clinical purposes. Total Metanephrine, Free 255 <=205 pg/mL For additional information, please refer to http://education.The Finance Scholar.Checkr/faq/Me tFractFree (This link is being provided for informational/educatio informational/educatio nal purposes only.) Elevations >4-fold upper reference range: [...] analytical performance characteristics have been determined by [facility] [place]. It has not been cleared or approved by the U.S. Food and Drug Administration. This assay has been validated pursuant to the CLIA regulations and is used for clinical purposes. THIS TEST WAS PERFORMED AT: [facility] [address] [place] [address] PAT CUMMINGS MD,PHD Osmolality Urine Reviewed date:09/22/2024 03:17:39 PM Interpretation: Performing Lab:[address] [address] Notes/Report: Osmolality Urine 731 199-7302 mosm/kg Sodium Urine Random Reviewed date:09/22/2024 12:50:43 PM Interpretation: Performing Lab:[address] [address] Notes/Report: Sodium Urine Random 21.0 Immunofixation Pnl, Serum Reviewed date:09/27/2024 08:14:33 PM Interpretation: Performing Lab:[address] [address] Notes/Report: IgG 954 300-9731 mg/dL IgA 308 70-320 mg/dL IgM 95 50-300 mg/dL THIS TEST WAS PERFORMED AT: [facility] [address] [address] SARA BARAJAS MD Immunofixation Interpretation SEE NOTE Normal pattern. No monoclonal proteins detected. Cortisol Random Reviewed date:09/22/2024 05:36:07 PM Interpretation: Performing Lab:[address] [address] Notes/Report: Cortisol Random 11.8 Reference Range*: Before 10 am 6.2-19.4 ug/dL After 5 pm 2.3-11.9 ug/dL *Please interpret above results accordingly. This test was performed using the Boyd chemiluminescent method. Values obtained from different assay methods cannot be used interchangeably. Patients receiving fludrocortisone, prednisolone or prednisone may show artificially elevated cortisol values due to cross-reactivity. Ramos Pichardo Reviewed date:01/05/2025 12:42:55 PM Interpretation: Performing Lab:[facility] [address], [place] [address] Notes/Report: Hold Gold See Note Specimen held untested for 24 hours; Call to request Chemistry testing. MM tomosynthesis screening B I Reviewed date:05/01/2025 05:32:34 PM Interpretation: Performing Lab: Notes/Report: [facility] [address] [place] [address] Mammography Report Signed Patient: Maday Arboleda MR#: [id number] : 1950 Acct:[id number] Age/Sex: 74 / F ADM Date: 04/25/25 Loc: HO.MAMMO Attending Dr: Spencer Stanley MD Ordering Physician: Spencer Stanley MD Results: 1Ne gative Date of Service: 04/25/25 Follow Up: 1 Year From Orig ina Mammogram Procedure(s): MM tomosynthesis screening BI Accession Number(s): [id number] cc: Spencer Stanley MD EXAMINATION: MM SCREENING DIGITAL BREAST TOMOSYNTHESIS, BILATERAL CLINICAL INFORMATION: Screening. Asymptomatic. COMPARISON: Mammography: Comparison is made with available priors TECHNIQUE: Digital breast mammography with tomosynthesis is performed in both the craniocaudal and mediolateral oblique views along with computer-aided detection (CAD). FINDINGS: There are scattered areas of fibroglandular density (ACR BI-RADS breast composition Category b). There are no significant masses, abnormal calcifications, or other abnormalities. MM/MM tomosynthesis screening BI IMPRESSION: No mammographic evidence of malignancy. ASSESSMENT: BI-RADS BI-RADS 1 - Negative RECOMMENDATION: Routine annual mammography screening. 1 year F/U This examination should not preclude the clinical evaluation of a suspicious palpable abnormality. This patient's information was entered into a reminder system with a target due date for their next mammogram. Electronically signed by: Francine Lopez DO 04/30/2025 09:36 PM EDT Dictated By: Francine Lopez DO Signed By: <Electronically signed by Francine Lopez DO in OV> 04/30/25 2136 DD/ 1303 TD/TT: 04/25/25 1325 Insurance Claims Analyst: [facility] [address] [place] [address] Mammography Report Signed Patient: Maday Arboleda MR#: [id number] : 1950 Acct:[id number] Age/Sex: 74 / F ADM Date: 04/25/25 Loc: HO.MAMMO Attending Dr: Spencer Stanley MD Ordering Physician: Spencer Stanley MD Results: 1Ne gative Date of Service: 04/25/25 Follow Up: 1 Year From Orig inal Mammogram Procedure(s): MM tomosynthesis screening BI Accession Number(s): [id number] cc: Spencer Stanley MD EXAMINATION: MM SCREENING DIGITAL BREAST TOMOSYNTHESIS, BILATERAL CLINICAL INFORMATION: Screening. Asymptomatic. COMPARISON: Mammography: Compari son is made with available priors TECHNIQUE: Digital breast mammography with tomosynthesis is performed in both the craniocaudal and mediolateral oblique views along with computer-aided detection (CAD). FINDINGS: There are scattered areas of fibroglandular density (ACR BI-RADS breast composition Category b). There are no significant masses, abnormal calcifications, or other abnormalities. MM/MM tomosynthesis screening BI IMPRESSION: No mammographic evidence of malignancy. ASSESSMENT: BI-RADS BI-RADS 1 - Negative RECOMMENDATION: Routine annual mammography screening. 1 year F/U This examination humaira uld not preclude the clinical evaluation of a suspicious palpable abnormality. This patient's information was entered into a reminder system with a target due date for their next mammogram. Electronically ingris d by: Francine Lopez DO 04/30/2025 09:36 PM EDT Dictated By: Francine Lopez DO Signed By: <Electronically signed by Francine Lopez DO in OV> 04/30/252135 DD/ 1303 TD/TT: 04/25/25 1325 Insurance Claims Analyst: US venous duplex LE RT Reviewed date:05/10/2025 06:16:57 PM Interpretation: Performing Lab: Notes/Report: [address] [address] Ultrasound Report Signed Patient: Maday Arboleda MR#: [id number] : 1950 Acct:[id number] Age/Sex: 74 / F ADM Date: 05/10/25 Loc: .US Attending Dr: Spencer Stanley MD Ordering Physician: Spencer Stanley MD Date of Service: 05/10/25 Procedure(s): US venous duplex LE RT Accession Number(s): [id number] cc: Spencer Stanley MD EXAMINATION: US TRIPLEX LOWER EXTREMITY, RIGHT CLINICAL INFORMATION: Pain, right lower extremity. COMPARISON: None available. TECHNIQUE: Color-flow triplex imaging with spectral analysis and compression Doppler were performed on the right lower extremity. FINDINGS: Respiratory variation, normal compression and augmented flow are demonstrated within the interrogated right common femoral vein, superficial femoral vein, profunda femoral vein, popliteal vein and midcalf peroneal and posterior tibial venous segments . There is no Gordon's cyst. US/US venous duplex LE RT IMPRESSION: No acute deep venous thrombosis interrogated veins, right lower extremity. Negative for DVT. Electronically signed by: Darion Butler MD 05/10/2025 11:16 AM EDT Dictated By: Darion Watson MD Signed By: <Electronically signed by Darion Hoffman MD in OV> 05/10/25 1116 DD/ 1052 TD/TT: 05/10/25 1102 Insurance Claims Analyst: [address] [address] Ultrasound Report Signed Patient: Maday Arboleda MR#: [id number] : 1950 Acct:[id number] Age/Sex: 74 / F ADM Date: 05/10/25 Loc: .US Attending Dr: Spencer Stanley MD Ordering Physician: Spencer Stanley MD Date of Service: 05/10/25 Procedure(s): US gale ous duplex LE RT Accession Number(s): [id number] cc: Spencer Stanley MD EXAMINATION: US TRIPLEX LOWER EXTREMITY, RIGHT CLINICAL INFORMATION: Pain, right lower extremity. COMPARISON: None available. TECHNIQUE: Color-flow triplex imaging with spectral analysis and compression Doppler were perform ed on the right lower extremity. FINDINGS: Respiratory variatio n, normal compression and augmented flow are demonstrated within the interrogated right common femoral vein, superficial femoral vein, profunda femoral vein, popliteal vein and midcalf peroneal and posterior tibial venous segments . There is no Gordon's cyst. US/US venous duplex LE RT IMPRESSION: No acute deep venous thrombosis interrogated veins, right lower extremity. Negative for DVT. Electronically ingris d by: Darion Butler MD 05/10/2025 11:16 AM EDT RP Dictated By: Darion Reyes MD Signed By: <Electronically signed by Darion Hoffman MD in OV> 05/10/25 1116 DD/ 1052 TD/TT: 05/10/25 1102 Insurance Claims Analyst: US renal doppler Reviewed date:06/29/2025 04:24:55 PM Interpretation: Performing Lab: Notes/Report: [facility] [address] [place] [address] [place] [address] Ultrasound Report Signed Patient: Maday Arboleda MR#: [id number] : 1950 Acct:[id number] Age/Sex: 74 / F ADM Date: 06/21/25 [facility]: Favian Nichols MD Ordering Physician: Favian Nichols MD Date of Service: 06/21/25 Procedure(s): US renal doppler Accession Number(s): [id number] cc: Spencer Stanley MD; Favian Nichols MD CLINICAL HISTORY: I10 - Essential (primary) hypertension Renal duplex ultrasound Comparison: None provided Technique: Real time duplex ultrasound imaging was performed by the studio operation engineer. Multiple outside sales representative insurance static images were saved for review. Findings: Aorta: Patent with atherosclerotic change. 75.7 cm/s. Right kidney: Normal size and echotexture, 10.5 cm length. No calculus, focal lesion or hydronephrosis. Main renal artery peak systolic velocities: Proximal: 264 cm/s Mid: 147 cm/s Distal: 120 cm/s Interlobar resistive index: 0.67-0.79. RAR: 3.5. Main renal vein: Patent. Left kidney: The upper and lower poles are not well visualized due to limited acoustic window, grossly normal in size and echotexture, 9.1 cm length. No calculus, focal lesion or hydronephrosis. Main renal artery peak systolic velocities: Proximal: 88 cm/s Mid: 155 cm/s Distal: 121 cm/s Interlobar resistive index: 0.71-0.81. RAR: 1.2. Main renal vein: Patent. Impression: 1. 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 2. No apparent stenosis of left renal artery. 3. Mildly elevated resistive indices of left renal parenchyma. This document has been electronically signed by: Regina Stauffer MD on 06/21/2025 12:48:03 Dictated By: Regina Stauffer MD Signed By: <Electronically signed by Regina Stauffer MD in OV> 06/23/25 1203 DD/ 1248 TD/TT: 06/21/25 1248 Insurance Claims Analyst: [facility] [address] [place] [address] [place] [address] Ultrasound Report Signed Patient: Maday Arboleda MR#: [id number] : 1950 Acct:[id number] Age/Sex: 74 / F ADM Date: 06/21/25 Loc: .[facility] Attending Dr: Favian Nichols MD Ordering Physician: Favian Nichols MD Date of Service: 06/21/25 Procedure(s): US primo cai doppler Accession Number(s): [id number] cc: Spencer Stanley MD; Favian Nichols MD CLINICAL HISTORY: I1 0 - Essential (primary) hypertension Renal duplex ultrasound Comparison: None provided Technique: Real time duplex ultrasound imaging was performed by the studio operation engineer. Multipl e outside sales representative insurance static images were saved for review. Findings: Aorta: Patent with atherosclerotic change. 75.7 cm/s. Right kidney: Normal size and echotexture, 10.5 cm length. No calculus, focal lesion or hydronephrosis. Main renal artery pe ak systolic velocities: Proximal: 264 cm/s Mid: 147 cm/s Distal: 120 cm/s Interlobar resistive index: 0.67-0.79. RAR: 3.5. Main renal vein: Patent. Left kidney: The upper and lower poles are not well visualized due to limited acoustic window, grossly norm al in size and echotexture, 9.1 cm length. No calculus, focal lesi on or hydronephrosis. Main renal artery pe ak systolic velocities: Proximal: 88 cm/s Mid: 155 cm/s Distal: 121 cm/s Interlobar resistive index: 0.71-0.81. RAR: 1.2. Main renal vein: Patent. Impression: 1. Right renal arter y significant stenosis greater than 60%. 2. No apparent steno sis of left renal artery. 3. Mildly elevated resistive indices of left renal parenchyma. This document has be en electronically signed by: Regina Stauffer MD on 06/21/2025 12:48:03 Dictated By: Regina Stauffer MD Signed By: <Electronically signed by Regina Stauffer MD in OV> 06/23/25 1203 DD/ 1248 TD/TT: 06/21/25 1248 Insurance Claims Analyst: US renal BI Reviewed date:06/21/2025 02:03:56 PM Interpretation: Performing Lab: Notes/Report: [facility] [address] [place] [address] [place] [address] Ultrasound Report Signed Patient: Maday Arboleda MR#: [id number] : 1950 Acct:[id number] Age/Sex: 74 / F ADM Date: 06/21/25 Loc: HO.[facility] Attending Dr: Favian Nichols MD Ordering Physician: Favian Nichols MD Date of Service: 06/21/25 Procedure(s): US renal BI Accession Number(s): [id number] cc: Spencer Stanley MD; Favian Nichols MD CLINICAL HISTORY: I10 - Essential (primary) hypertension Renal duplex ultrasound Comparison: None provided Technique: Real time duplex ultrasound imaging was performed by the studio operation engineer. Multiple outside sales representative insurance static images were saved for review. Findings: Aorta: Patent with atherosclerotic change. 75.7 cm/s. Right kidney: Normal size and echotexture, 10.5 cm length. No calculus, focal lesion or hydronephrosis. Main renal artery peak systolic velocities: Proximal: 264 cm/s Mid: 147 cm/s Distal: 120 cm/s Interlobar resistive index: 0.67-0.79. RAR: 3.5. Main renal vein: Patent. Left kidney: The upper and lower poles are not well visualized due to limited acoustic window, grossly normal in size and echotexture, 9.1 cm length. No calculus, focal lesion or hydronephrosis. Main renal artery peak systolic velocities: Proximal: 88 cm/s Mid: 155 cm/s Distal: 121 cm/s Interlobar resistive index: 0.71-0.81. RAR: 1.2. Main renal vein: Patent. Impression: 1. 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 2. No apparent stenosis of left renal artery. 3. Mildly elevated resistive indices of left renal parenchyma. This document has been electronically signed by: Regina Stauffer MD on 06/21/2025 12:48:03 Dictated By: Regina Stauffer MD Signed By: <Electronically signed by Regina Stauffre MD in OV> 06/21/25 1248 DD/ 1248 TD/TT: 06/21/25 1248 Insurance Claims Analyst: [facility] [address] [place] [address] [place] [address] Ultrasound Report Signed Patient: Maday Arboleda MR#: [id number] : 1950 Acct:[id number] Age/Sex: 74 / F ADM Date: 06/21/25 Loc: .[facility] Attending Dr: Favian Nichols MD Ordering Physician: Favian Nichols MD Date of Service: 06/21/25 Procedure(s): US primo Andrews Accession Number(s): [id number] cc: Spencer Stanley MD; Favian Nichols MD CLINICAL HISTORY: I1 0 - Essential (primary) hypertension Renal duplex ultrasound Comparison: None provided Technique: Real time duplex ultrasound imaging was performed by the studio operation engineer. Multipl e outside sales representative insurance static images were saved for review. Findings: Aorta: Patent with atherosclerotic change. 75.7 cm/s. Right kidney: Normal size and echotexture, 10.5 cm length. No calculus, focal lesion or hydronephrosis. Main renal artery pe ak systolic velocities: Proximal: 264 cm/s Mid: 147 cm/s Distal: 120 cm/s Interlobar resistive index: 0.67-0.79. RAR: 3.5. Main renal vein: Patent. Left kidney: The upper and lower poles are not well visualized due to limited acoustic window, grossly norm al in size and echotexture, 9.1 cm length. No calculus, focal lesi on or hydronephrosis. Main renal artery pe ak systolic velocities: Proximal: 88 cm/s Mid: 155 cm/s Distal: 121 cm/s Interlobar resistive index: 0.71-0.81. RAR: 1.2. Main renal vein: Patent. Impression: 1. Right renal arter y significant stenosis greater than 60%. 2. No apparent steno sis of left renal artery. 3. Mildly elevated resistive indices of left renal parenchyma. This document has be en electronically signed by: Regina Stauffer MD on 06/21/2025 12:48:03 Dictated By: Regina Stauffer MD Signed By: <Electronically signed by Regina Stauffer MD in OV> 06/21/25 1248 DD/ 1248 TD/TT: 06/21/25 1248 Insurance Claims Analyst: Reason For Referral Reason acute diverticulitis Diagnosis 1 Acute diverticulitis (K57.92) Referral Organization Spencer Stanley MD Referring Provider First Name Spencer Referring Provider Last Name Jaden Referring Provider Speciality Internal M edicine Referred Provider Dany Mckinney Referred Provider Specialty Gastroentero logy General Notes Maria Del Carmen Borrego 11:40:54 AM EDT > info faxed , Maria Del Carmen Borrego 08/05/2024 03:21:51 PM EDT > patient is aware of appt Referral Priority Routine Referral Appointment Date 12/06/2024 Reason hyonatremia Essentia l hypertension Diagnosis 1 Hyponatremia (E87.1) Diagnosis 2 Essential hypertensi on (I10) Referral Organization Spencer Stanley MD Referring Provider First Name Spencer Referring Provider Last Name Jaden Referring Provider Speciality Internal M edicine Referred Provider FAVIAN NICHOLS Referred Provider Specialty Nephrology General Notes Maria Del Carmen Borrego 11:56:39 AM EDT > info faxed , Becky Borregoette 09/12/2024 01:08:49 PM EST > appt is at their [facility] office [address] [facility] with [address] Nichols, patient is aware [...] Omeprazole 20 MG TAKE 1 CAPSULE BY [facility] EVERY DAY 30 MINUTES BEFORE BREAKFAST for 90 Not-Taki ng Finacea 15 % 1 application [employer]ker ally ONCE A DAY IN THE EVENING [...] Problem Status W/U Status Risk Notes Problem [id number] Age-related osteoporosis without current pathological fracture (M81.0) Active confirmed Problem 733584581 Acute diverticulitis (K57.92) Active confirmed Problem 260894852 Reflux esophagit is (K21.00) Active confirmed Problem Vitamin D deficiency (34706207) Vitamin D deficiency (E55.9) Active confirmed Problem 317389933 Diverticulitis (K57.92) Active confirmed Problem Chronic frontal sinusitis (24293953) Chronic frontal sinusitis (J32.1) Active confirmed Problem 1429155 Diverticulitis o f large intestine without perforation or abscess without bleeding (K57.32) Active confirmed Problem 837595726 Other specified menopausal and perimenopausal disorders (N95.8) Active confirmed Problem 719244397 Lumbar disc disease (M51.9) Active confirmed Problem 572092218 Elevated LFTs (R79.89) Active confirmed Problem 352595538 Tubular adenoma of colon (D12.6) Active confirmed Problem 15700505 Essential hypertension (I10) Active confirmed Problem Osteoporosis (86509174) Osteoporosis (M81.0) Active confirmed Problem Disorder of female genital organs (611513429) Acute pelvic pain, female (N94.9) Active confirmed Problem 06586953 Oropharyngeal dysphagia (R13.12) Active confirmed Problem 02906264 Peptic ulcer disease (K27.9) Active confirmed Problem 23116816 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 confirmed Problem 021929169 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) Active confirmed Problem Macrocytosis - no anemia (289000912) Macrocytosis without anemia (D75.89) Active confirmed Vital Signs Heart Rate 60 /min 12/13/2024 weight is down 4 pounds since 11-14-24 Blood pressure diastolic 86 mm Hg 04/13/2025 Height 64 in 04/13/2025 Blood pressure systolic 172 mm Hg 04/13/2025 Weight 138 lbs 04/13/2025 BMI 23.69 kg/m2 04/13/2025 Encounters Encounter Location Date Provider Diagnosis Spencer Stanley MD [address] [place] [address] [id number] 11/25/2024 Spencer Stanley Essential hypertensi on I10 Spencer Stanley MD [address] [place] [address] [id number] 01/05/2025 Spencer Stanley Essential hypertensi on I10 ; Vitamin D deficiency E55.9 and Elevated LFTs R79.89 Spencer Stanley MD [address] [place] [address] [id number] 02/23/2025 Spencer Stanley Diverticulitis K57.9 2 ; Rash R21 and Essential hypertension I10 Spencer Stanley MD [address] [place] [address] [id number] 08/02/2024 Spencer Stanley Acute diverticulitis K57.92 ; Hyponatremia E87.1 and Upper abdominal pain R10.10 Spencer Stanley MD [address] [place] [address] [id number] 08/19/2024 Spencer Stanley Acute diverticulitis K57.92 Spencer Stanley MD [address] [place] [address] [id number] 09/01/2024 Spencer Jaden Hyponatremia E87.1 Spencer Stanley MD [address] [place] [address] [id number] 09/02/2024 Spencer Stanley Essential hypertensi on I10 and Hyponatremia E87.1 Spencer Stanley MD [address] [place] [address] [id number] 09/08/2024 Spencer Celineardiadriana Essential hypertensi on I10 and Hyponatremia E87.1 Spencer Stanley MD [address] [place] [address] [id number] 09/09/2024 Spencer Celineardier Essential hypertensi on I10 and Hyponatremia E87.1 Spencer Stanley MD [address] [place] [address] [id number] 09/15/2024 Spencer Bombardier Essential hypertensi on I10 and Hyponatremia E87.1 Spencer Stanley MD [address] [place] [address] [id number] 09/22/2024 Spencer Bombardier Essential hypertensi on I10 and Hyponatremia E87.1 Spencer Stanley MD [address] [place] [address] [id number] 10/13/2024 Spencer Celineardier Essential hypertensi on I10 and Hyponatremia E87.1 Spencer Stanley MD [address] [place] [address] [id number] 11/14/2024 Spencer Stanley Viral URI J06.9 Spencer Stanley MD [address] [place] [address] [id number] 12/13/2024 Spencer Jaden Essential hypertensi on I10 and Abdominal wall pain R10.9 Spencer Stanley MD [address] [place] [address] [id number] 01/12/2025 Spencer Jaden Essential hypertensi on I10 ; Macrocytosis without anemia D75.89 ; Elevated LFTs R79.89 ; Vitamin D deficiency E55.9 ; Colon cancer screening Z12.11 and Depression screening Z13.31 Spencer Stanley MD [address] [place] [address] [id number] 04/13/2025 Spencer Stanley Essential hypertensi on I10 and Bakers cyst, right M71.21 Spencer Stanley MD [address] [place] [address] [id number] 09/05/2024 Spencer Stanley MD [address] [place] [address] [id number] 01/09/2025 Spencer Stanley MD [address] [place] [address] [id number] 01/20/2025 Spencer Stanley MD [address] [place] [address] [id number] 02/14/2025 Spencer Stanley Assessments Encounter Date Diagnosis [...] went away so is not an allergy 08/02/2024 Acute diverticulitis (ICD-10 - K57.92) referral [...] started. restart the valsartan/ order faxed to [facility] dept, patient verbalized [...] I10) doing much better/ going to see elevator worker 09/22/2024 Hyponatremia (ICD-10 - E87.1) he has [...] (ICD-10 - D75.89) will continue to monitor 04/13/2025 Essential hypertension (ICD-10 - I10) has just had a change in her bp meds, will continue current regiment 04/13/2025 Bakers cyst, right (ICD-10 - M71.21) THE ORDER WAS FAXED TO [facility] CENTRALIZED FOR SCHEDULING 01/05/2025 Vitamin D deficiency (ICD-10 - E55.9) 02/23/2025 Essential hypertension (ICD-10 - I10) having side effects with every medicine that she takes and is making adjustments of her own and is difficult to get her bp controlled. to see principal cyber engineer again 08/02/2024 Upper abdominal pain (ICD-10 - R10.10) seems that it is just postural 01/12/2025 Elevated LFTs (ICD-10 - R79.89) stable, will continue to monitor 01/05/2025 Elevated LFTs (ICD-10 - R79.89) 01/12/2025 [...] BONE DENSITY DEXA 06/15/2023 US ABD 09/08/2024 US LEG RT VENOUS DOPPLER 04/13/2025 SARS COV2 IGG 04/30/2020 Vitamin B12 and Folate 01/12/2025 MM tomosynthesis screening BI 12/25/2020 XR DEXA axial skeleton 12/25/2020 US venous duplex LE RT 09/13/2021 XR chest 2V 09/22/2022 UA ClnCatch+Micro w/rflx Cult 01/05/2025 Next Appt Details Provider Name:Spencer Mccullough ier, 01/08/2026 07:30:00 AM, [address] [place] [address], [address], [place], [id number], Provider Name:Spencer Mccullough ier, 01/15/2026 09:30:00 AM, [address] [place] [address], [address], [place], [place], [id number], Insurance Providers Payer Name Payer Address Payer Phone Subscriber Number Group Number Insured Name Patient Relationship to Insured Coverage Start Date Coverage End Date [employer] [address] [place] [address] [id number] Maday Arboleda Self - patient is the insured [employer] [place] [address] [place] [phone] [id number] Maday Arboleda Self - patient is the insured Medical (General) History Medical History History ICD Code can tolerate doxycycline without difficu lty Refuses flu [id number] colonoscopy 04/2009 - adenoma due in 5 years for upper and lower; colonoscopy and endo done 02/01/[address] Mckinney (repeat 01/2020) hysterectomy (has one ovary); no paps on ly pelvic exam Tinnitus of left ear colonoscopy done 04/29, due in 5 years
[2025-07-26 08:06] LABS: Anion Gap 9 (12-20); Blood Urea Nitrogen 16 mg/dL (9-16); Carbon Dioxide 27 mmol/L (22-29); Chloride 101 mmol/L (96-108); Estimated Glomerular Filt Rate > 60; Potassium 4.6 mmol/L (3.3-5.1); Sodium 132 mmol/L (135-145)
== END 2025-07-26 07:08 | disposition home or self-care (01) ==
LOC: HO.LAB 07:07
PROVIDERS: PCP Internal Medicine; Visit Provider Internal Medicine Nephrology
DX: I10 Essential (primary) hypertension (principal); E87.1 Hypo-osmolality and hyponatremia
CPT/HCPCS: 36415; 80051; 82565; 84520

== ENCOUNTER 2025-08-02 13:38 | Outpatient (AMB) | payer MEDICARE, SELFPAY ==
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
--- OUTSIDE RECORDS SUMMARY | 2025-01-12 05:30 | XMS_ITS ---
Author Organization Spencer Stanley MD Address [address] [place] [phone] Care Team Providers Care Hat Cleaner Name Role Phone Spencer Stanley Primary Care [...] t Reviewed date:01/12/2025 11:52:13 AM Interpretation: Performing Lab:[facility], [address] [place] [phone] Notes/Report: Urine, Clean Catch Color Urine Yellow Appearance Urine Clear PH 6.5 5.0-9.0 Glucose Urine UA Negative Negative mg/dL Urine Blood Negative Negative Specific [place] - Urine 1.010 1.005-1.025 Urine Protein Negative [...] 20 MG TAKE 1 CAPSULE BY MO [facility] EVERY DAY 30 MINUTES BEFORE [...] day Active Finacea 15 % 1 application Receptionist ally ONCE A DAY IN THE EVENING [...] Risk Notes Problem Macrocytosis - no anemia (941715505) Macrocytosis without anemia (D75.89) Active confirmed Vital Signs Blood pressure systolic 144 mm Hg 01/13/20 25 Blood pressure diastolic 72 mm Hg 025 Height 64 in 01/12/2025 Weight 141 lbs 01/12/2025 BMI 24.2 kg/m2 01/12/2025 Encounters Encounter Location Date Provider Diagnosis Spencer Stanley MD [address] [place] [address] [place] [phone] 01/12/2025 Spencer Stanley Essential hypertension I10 ; [...] AM, [address], [address], [place], [phone], Provider Name:Spencer Mccullough marcosr, 01/15/2026 09:30:00 AM, [address], [address], [place], [phone], Progress Notes * Maday ARBOLEDA MDOB:[birth year] (74 yo F)Acc No.[id number]:01/12/2025 Patient: Maday DESAI Provider: Neris Stanley MD :1950 A ge:74 Y S ex:Female Date:01/12/2025 Address:[address] [place], [place] [phone] Subjective: * Chief Complaints: * C OMP [...] Direct 0.2 0.0-0.5 - mg/dL L ab:Comprehensive [place]. Panel Fast (Order Date 01/05/2025) (Collection Date [...] guaiac negative.? FEMALE GENITOURINARY: d one by teacher of the hearing impaired. EXTREMITIES: n o clubbing, cyanosis, or edema. [...] 01/12/2025 Generated for Kwaku hernández/Jameson/Marilinitting on: 0 08/02/2025 04:05 PM EDT History and Physical Notes * HPI [...] stool guaiac negative FEMALE GENITOURINARY: done by teacher of the hearing impaired ORAL CAVITY: mucosa moist
--- OUTSIDE RECORDS SUMMARY | 2025-01-20 04:34 | XMS_ITS ---
Author Organization Spencer Stanley MD Address [address] [place] [phone] Care Team Providers Care Music Therapist [employer] Name Role Phone Spencer Stanley Primary Care Provider REASON FOR VISIT US ABD orders Encounters Encounter Location Date Provider Diagnosis Spencer Stanley MD 10 [facility] [address] [place] [phone] 01/20/2025 Spencer Stanley Plan Of Treatment Next Appt Details Provider Name:Spencer correa, 01/08/2026 07:30:00 AM, [address] [place] [address], [address], [phone], Provider Name:Spencer correa, 01/15/2026 09:30:00 AM, [address] [place] [address], [address], [phone], Progress Notes * Maday ARBOLEDA MDOB:[birth year] (74 yo F)Acc No.[id number]:01/20/2025 Patient: Ayan GALEXUS Maday Mario :1950 A ge:74 Y S ex:Female Address:[address] [place] [address], [place] [address] * true * Date: Generated for Kwaku hernández/Jameson/eTransmitting on: 0 08/02/2025 04:04 PM EDT
--- OUTSIDE RECORDS SUMMARY | 2025-02-14 11:03 | XMS_ITS ---
Author Organization Spencer Stanley MD Address [address] [place] [phone] Care Team Providers Care Instrument Checker Name Role Phone Spencer Stanley Primary Care Provider [phone] REASON FOR VISIT several issues Encounters Encounter Location Date Provider Diagnosis Spencer Stanley MD [address] [place] [address] [address] [place] [phone] 02/14/2025 Spencer Stanley Plan Of Treatment Next Appt Details Provider Name:Spencer correa, 01/08/2026 07:30:00 AM, [address] [place] [address], [address], [phone], Provider Name:Spencer correa, 01/15/2026 09:30:00 AM, [address] [place] [address], [address], [phone], Progress Notes * Maday ARBOLEDA MDOB:[birth year] (74 yo F)Acc No.[id number]:02/14/2025 Patient: Ayan GAMELINARaquel Maday Mario :1950 A ge:74 Y S ex:Female Address:[address] [place] [address], [place] [address] * true * Date: Generated for Kwaku hernández/Jameson/eTransmitting on: 0 08/02/2025 04:05 PM EDT
--- OUTSIDE RECORDS SUMMARY | 2025-02-23 10:15 | XMS_ITS ---
Author Organization Spencer Stanley MD Address [address] [place] [phone] Care Team Providers Care Food Cart Attendant Name Role Phone Spencer Stanley Primary Care Provider [phone] Allergies Allergen (clinical drug ingredient) Drug/Non Drug Allergy documented on EMR Reaction Allergy Type Onset Date Status epinephrine (uncoded) heart palpitations Allergy Active tetracycline tetracycline (uncoded) rash Allergy Active REASON FOR VISIT BP Medications Medication SIG (Take, Route, Frequency, Duration) Notes Start Date End Date Status dilTIAZem HCl 60 MG as directed Orally Active Finacea 15 % 1 application Professor Of Communication Arts ally ONCE A DAY IN THE EVENING [...] kg/m2 02/23/2025 weight is down 3 pounds [facility] e 01-12-25 Encounters Encounter Location Date Provider Diagnosis Spencer Stanley MD [address] [place] [address] Drive [address] [place], [place] [phone] 02/23/2025 Spencer Stanley Diverticulitis K57.9 2 ; [...] to get her bp controlled. to see blending tank helper again Plan Of Treatment Medication Medication Name [...] to get her bp controlled. to see blending tank helper again Next Appt Details Provider Name:Spencer correa, 01/08/2026 07:30:00 AM, [address] [place] [address], [address], [place], [place], [phone], Provider Name:Spencer correa, 01/15/2026 09:30:00 AM, [address] [place] [address], [address], [place], [place], [phone], Progress Notes * Maday ARBOLEDA MDOB:[birth year] (75 yo F)Acc No.[id number]:02/23/2025 Progress Notes Patient: Maday DESAI Provider: Neris Stanley MD :1950 A ge:74 Y S ex:Female Date:02/23/2025 Address:[address] [place], [place] [phone] Subjective: * Chief Complaints: * 1 . BP. * HPI: S ymptom(s): patient is a [...] D enies N ausea. * Medical History: C an tolerate doxycycline without difficulty, Refuses flu [id number], colonoscopy 04/2009 - adenoma due in 5 years for upper and lower; colonoscopy and endo done 02/01/[address] Willis (repeat 01/2020), Hysterectomy (has one ovary); no paps only pelvic exam, Tinnitus of left ear, Colonoscopy done 04/29, due in 5 years. * Medications: T aking Amoxicillin-Pot Clavulanate 875-125 MG Tablet 1 tablet Orally every 12 hrs , Taking dilTIAZem HCl 60 MG Tablet as directed Orally , Taking Finacea 15 % Gel 1 application Externally ONCE A DAY IN THE EVENING , Taking Dilt-XR 120 MG Capsule Extended Release 24 Hour 1 capsule Orally Once a day , Taking Valsartan 320 MG Tablet 1 tablet Orally Once a day , Not-Taking/PRN Tylenol 8 Hour Arthritis Pain 650 MG Tablet Extended Release 2 tablets as needed Orally every 8 hrs , Not-Taking/PRN Omeprazole 20 MG Capsule Delayed Release TAKE 1 CAPSULE BY MOUTH EVERY DAY 30 MINUTES BEFORE BREAKFAST , Not-Taking/PRN Valtrex 500 MG Tablet 1 tablet Orally every 12 hrs , Medication List reviewed and reconciled with the patient * Allergies: T etracycline: Rash, Epinephrine: Heart Palpitations. Objective: * Vitals: H t: 64, Wt: [...] to get her bp controlled. to see blending tank helper again * * The named appointment provid er may or may not be the originator of this progress note, and it is not deemed complete until electronically signed by the appointment provider. Sign off status: Pending * Provider: Neris Stanley MD Date: 0 02/23/2025 Generated for Kwaku hernández/Jameson/Marilinitting on: 0 08/02/2025 04:06 PM EDT History and Physical Notes * [...]
--- OUTSIDE RECORDS SUMMARY | 2025-04-13 06:15 | XMS_ITS ---
Author Organization Spencer Stanley MD Address [address] [place] [address] [phone] Care Team Providers Care Train Electronic Technician Name Role Phone Spencer Stanley Primary Care Provider [phone] Allergies Allergen (clinical drug ingredient) Drug/Non Drug [...] Not-Taki ng Finacea 15 % 1 application Bandage Winding Machine Operator ally ONCE A DAY IN THE [...] Date Provider Diagnosis Spencer Stanley MD [address] [place] [address] Drive [address] [place] [address] [phone] 04/13/2025 Spencer Stanley Essential hypertension I10 and Bakers cyst, right M71.21 Assessments Encounter Date Diagnosis (ICD Code) Assessment Notes Treatment Notes Treatment Clinical Notes Section Notes 04/13/2025 Essential hypertension (ICD-10 - I10) has just had a change in her bp meds, will continue current regiment 04/13/2025 Bakers cyst, right (ICD-10 - M71.21) THE ORDER WAS FAXED TO [facility] CENTRAL[facility] FOR SCHEDULING Plan Of Treatment Medication [...] cyst, right THE ORDER WAS FAXED TO [facility] FOR SCHEDULING Pending Test Test Name Order Date US LEG RT VENOUS DOPPLER 04/13/2025 Next Appt Details Provider Name:Spencer correa, 01/08/2026 07:30:00 AM, [address] [place] [address], Suite [facility], [place], [place], [phone], Provider Name:Spencer correa, 01/15/2026 09:30:00 AM, [address] [place] [address], Suite [facility], [place], [place], [phone], Progress Notes * Maday ARBOLEDA MDOB:[birth year] (74 yo F)Acc No.[id number]:04/13/2025 Progress Notes Patient: Maday DESAI Provider: Neris Stanley MD :1950 A ge:74 Y S ex:Female Date:04/13/2025 Address:[address] [place] [address] Jose Fish [id number] Subjective: * Chief Complaints: * 3 MO [...] DOPPLER Notes: THE ORDER WAS FAXED TO [facility] FOR SCHEDULING * Procedure Codes: * * Sign off status: Completed true * Provider: Neris Stanley MD Date: 04/13/2025 Generated for Kwaku hernández/Jameson/eTransmitting on: 08/02/2025 04:05 PM EDT History and Physical [...]
--- NOTE | 2025-08-02 13:43 | HO.NEPHOV_ITS ---
Vital Signs 08/02/25 13:46 Height 5 ft 3 in Weight 141 lb 2 oz BMI 25.0 BP 158/80 H Blood Pressure Location Lt brachial Position Sitting Pulse 72 Pulse Source Pulse Oximeter Pulse Oximetry (%) 98 Oxygen Delivery Method Room Air Intake Visit Reasons: 2 mo f/u w/ labs Licensing Officer Required: No Accompanied by: Spouse Allergies tetracycline (TETRACYCLINE) Allergy (Unknown, Verified 08/02/25 13:45) Rash, itchy epinephrine Allergy (Unknown, Uncoded 02/21/25 10:01) heart palpitations HPI Comments Details: Maday was seen in follow up for hypertension. She is known to hypertension for a while and has been on hydrochlorothiazide bit she had been taking regularly without much side effects. She also is known to renal calculi. Her blood pressure started getting fluctuant, more so after COVID infection. She had to come off hydrochlorothiazide given hyponatremia, which has normalized now. Subsequently she was started on valsartan and the dose of which was maximized now. She had been tolerating that without much side effects. Her blood pressure control continued to be suboptimal with intermittent resting tachycardia and chest pressure symptoms without any reason. She was started on metoprolol of the time but she developed emotional lability as well as tiredness and it was discontinued. She has been started on 2.5 mg amlodipine at that time. She has been having some headache/ foggy head which she was attributing to amlodipine. She is not known to have any underlying thyroid disorders. She has no history of renal failure, liver disease or heart failure. She denied any diagnosis of depression but gets anxious at times. She is not known to have any hyperkalemia, edema. She denies drinking excessive fluid or alcohol. She has no history of any malignancy. Diltiazem was eventually added to the regimen but she was not tolerating the higher dose. Dose was reduced recently and she felt better but still complaining about ringing in the ear and variety of symptoms intermittently . She has seen cardiology. Her dose of short acting Diltiazem was adjusted at the last visit. She still C/O unexplainable intermittent inconsistent symptoms which she tries to attribute to BP medications. She feels that some of her symptoms are due to Diltiazem. Her BP is better and her symptoms are better after cutting back on Diltiazem and when Spironolactone has been introduced. Doppler of renal arteries showed right renal artery significant stenosis greater than 60% with no apparent stenosis of left renal artery & mildly elevated resistive indices of left renal parenchyma. Last week her BP had dropped( with development of tiredness) and her spironolactone has been cut back. She had spikes of BP after that. [facility] Medical History Hypertension History of kidney stones Hiatal hernia Osteoporosis GERD (gastroesophageal reflux disease) Surgical History History of blepharoplasty History of hammer toe correction Hx of hysterectomy History of esophagogastroduodenoscopy (EGD) Hx of colonoscopy Family History Mother Hypertension Kidney stone Father Cancer Social History Do you presently have visiting nurse or other home services: No Alcohol intake: never Patient Tobacco Use Status: Former Tobacco user Review of Systems Const All systems reviewed & are unremarkable except as noted in HPI and below Physical Exam Vital Signs: Last Vital Signs Pulse 72 08/02/25 13:46 BP 158/80 H 08/02/25 13:46 Pulse Ox 98 08/02/25 13:46 Oxygen Delivery Method Room Air 08/02/25 13:46 BMI result Body Mass Index 25.0 Const General: comfortable and no acute distress Orientation/consciousness: patient oriented x3 HEENT Head: Yes normocephalic Mouth: Normal oral and palatal mucosa present Eyes EOM: EOMs intact bilaterally Neck Neck: Yes supple Resp Auscultation: clear to auscultation bilaterally Cardio Jugular venous distension: no JVD Rate: regular rate GI Palpation (GI): Soft to palpation Auscultation: normal bowel sounds General: Yes no CVA tenderness Back/Spine/Pelvis Back: no CVA tenderness Skin General skin exam: no rashes or lesions noted Neuro General: patient oriented x3 and moves all extremities Extrem General: Yes no pedal edema Results Reviewed Nephrology Results: Sodium, (135-145) 132 mmol/L L 07/26/25 Potassium, (3.3-5.1) 4.6 mmol/L 07/26/25 Chloride, (96-108) 101 mmol/L 07/26/25 Carbon Dioxide, (22-29) 27 mmol/L 07/26/25 BUN, (9-16) 16 mg/dL 07/26/25 Creatinine, (0.5-1.4) 0.69 mg/dL 07/26/25 Renal US 06/21/25 Assessment & Plan Assessment & Plan (1) Hypertension: Code(s): I10 - Essential (primary) hypertension Category: Medical Qualifiers: Hypertension type: primary hypertension Qualified Code(s): I10 - Essential (primary) hypertension (2) Hyponatremia: Code(s): E87.1 - Hypo-osmolality and hyponatremia Category: Medical Plan Maday has longstanding hypertension. She did not tolerate metoprolol due to development of emotional lability. She is currently on valsartan 320 mg daily. I asked her to keep off hydrochlorothiazide for now ( H/O Hyponatremia). She has history of renal calculi. She is off fluid restriction . She has strong family history hypertension. She denied any other vascular risk factors or active vascular disease. Doppler of her renal arteries showed right renal artery significant stenosis greater than 60% with no apparent stenosis of left renal artery & mildly elevated resistive indices of left renal parenchyma. She can continue Valsartan 320 mg daily in the morning along with carvedilol 12.5 mg bid. She could continue Spironolactone 25 mg AM and 12.5 mg PM . She should continue low sodium in the diet. Labs ordered. Answered all questions. Orders: Orders TSH reflex Free T4 Today E87.1 - Hypo-osmolality and hyponatremia, I10 - Essential (primary) hypertension Cortisol Random Today E87.1 - Hypo-osmolality and hyponatremia, I10 - Essential (primary) hypertension Aldosterone Today E87.1 - Hypo-osmolality and hyponatremia, I10 - Essential (primary) hypertension Aldost/Renin Today E87.1 - Hypo-osmolality and hyponatremia, I10 - Essential (primary) hypertension Blood Urea Nitrogen Today E87.1 - Hypo-osmolality and hyponatremia, I10 - Essential (primary) hypertension Calcium Today E87.1 - Hypo-osmolality and hyponatremia, I10 - Essential (primary) hypertension Renin Today E87.1 - Hypo-osmolality and hyponatremia, I10 - Essential (primary) hypertension Creatinine Today E87.1 - Hypo-osmolality and hyponatremia, I10 - Essential (primary) hypertension Electrolytes Today E87.1 - Hypo-osmolality and hyponatremia, I10 - Essential (primary) hypertension Immunofixation Pnl, Serum Today E87.1 - Hypo-osmolality and hyponatremia, I10 - Essential (primary) hypertension Metanephrines, Plasma Today E87.1 - Hypo-osmolality and hyponatremia, I10 - Essential (primary) hypertension Coding Level of Care Code Est Pt Level 4 (01698) Diagnoses Primary hypertension I10 Hypertension type: primary hypertension Hyponatremia E87.1
[2025-08-02 13:46] VITALS: BP 158/80; PULSE 72; O2SAT 98; BMI 25.0
--- OUTSIDE RECORDS SUMMARY | 2025-08-02 16:05 | XMS_ITS | Patient Health Record ---
[facility] Address [address] [place] [address] Care Team Providers Care Right Of Way Cutter Name Role Phone Spencer Stanley MD Primary Care Provider Sarabjit Caballero Unavailable [phone] Allergies Allergen (clinical drug ingredient) Drug/Non Drug [...] W/U Status Risk Notes Problem Plantar wart (29690041) Plantar wart (B07.0) Active confirmed Problem Onychomycosis (725228904) Onychomycosis (B35.1) Active confirmed Vital Signs Blood pressure diastolic 80 mm Hg 11/15/2024 Height 5 ft 4 in in 11/15/2024 Blood pressure systolic 120 mm Hg 11/15/2024 Weight 142 lbs 11/15/2024 BMI 24.37 kg/m2 11/15/2024 Procedures Procedure Date Ordered Date Performed Result Body Sit e 13271-GSNSHAF NAIL, -11/15/2024 N/A 32320-Yrrn Destruction, -11/15/2024 N/A Encounters Encounter Location Date Provider Diagnosis [facility] [address] 11/15/2024 Sarabjit Manriquez Pain in left toe(s) M79.675 ; Onychomycosis B35.1 ; Right foot pain M79.671 ; Plantar wart B07.0 ; Pain in right ankle and joints of right foot M25.571 ; Bursitis of intermetatarsal bursa of right foot M77.51 and Metatarsalgia, right foot M77.41 [facility] [address] 11/15/2024 [facility]riquez [facility] [address] 11/17/2024 Sarabjit Manriquez Assessments Encounter Date Diagnosis [...] X ray : Foot, right 3V 09/25/2022 [id number] NAIL, 1-5 11/15/2024 01046-Vvxc Destruction, 1-14 11/15/2024 [id number]-Aiwtkgat Plate 12/08/2017 18305- Debride <25 sq cm 12/25/2017 Insurance Providers Payer Name Payer Address Payer Phone Subscriber Number Group Number Insured Name Patient Relationship to Insured Coverage Start Date Coverage End Date Medicare [employer] [address] [facility] [place] [address] [id number] Maday Draper Self - patient is the insured [employer] [facility] [address] [place] [address] [phone] [id number] Maday Draper Self - patient is the insured Medical (General) History Medical History History ICD Code Diverticulosis Measles Mumps Chicken pox Osteoporosis Reflux ( GERD) Hypertension Elevated LFTs Vitamin D deficiency Hypercalciuria Tubular adenoma of colon Cataracts Surgical History Surgery Date(Month/Year) hysterectomy 1986 hammer toe 1998
--- OUTSIDE RECORDS SUMMARY | 2025-08-02 16:05 | XMS_ITS | Clinical Summary ---
Author Organization [facility] Address [address] [address] Phone Care Team Providers Care Ent Physician Name Role Phone Spencer Stanley MD [...] file Insurance MEDICARE PART A & B [employer] MEDICARE PART A & B [facility] MEDEX SUPPLEMENT MEDICARE PART A & B [facility] MEDEX SUPPLEMENT MEDICARE PART A & B [employer] MEDICARE PART A & B [employer] SU[employer] MEDICARE PART A & B [facility] MEDEX SUPPLEMENT Care Teams Ent Physician Relationship Specialty Start Date End Date Spencer Stanley MD [address] [place] [address] [place] [address] PCP - General Internal Medicine 07/19/24 Additional Source Comments The information contained in this document represents components of the legal health record. It is not the complete legal health record.[facility]
--- OUTSIDE RECORDS SUMMARY | 2025-08-02 16:06 | XMS_ITS | Patient Health Record ---
Author Organization Spencer Stanley MD Address [address] [place] [address] [phone] Care Team Providers Care Bill Collector Name Role Phone Spencer Stanley Primary Care Provider Allergies Allergen (clinical drug ingredient) Drug/Non Drug Allergy documented on EMR Reaction Allergy Type Onset Date Status epinephrine (uncoded) heart palpitations Allergy Active tetracycline tetracycline (uncoded) rash Allergy Active Results Component Value Reference Range Notes Complete Blood Count Auto Di ff Reviewed date:01/05/2025 04:35:02 PM Interpretation: Performing Lab:[facility], [address] [place] [phone] Notes/Report: White Blood Count 5.0 4.8-10.8 X10*3/uL [...] NRBC Abs Auto 0.000 0.0-0.012 X10*3/uL Comprehensive Laverne. Panel Fa st Reviewed date:01/05/2025 12:43:17 PM Interpretation: Performing Lab:[facility], [address] [place] [phone] Notes/Report: Sodium 140 135-145 mmol/L Potassium 4.1 [...] Reviewed date:01/05/2025 12:43:41 PM Interpretation: Performing Lab:[address] [address] Notes/Report: Bilirubin Direct 0.2 0.0-0.5 mg/dL Lipid Panel Reviewed date:01/05/2025 12:43:26 PM Interpretation: Performing Lab:[address] [address] Notes/Report: Triglycerides 59 <150 mg/dL Desirable Triglyceride: [...] Total Reviewed date:01/05/2025 12:43:34 PM Interpretation: Performing Lab:[address] [address] Notes/Report: Vitamin D 25-OH Total 62.4 >30 [...] Reviewed date:09/01/2024 12:26:42 PM Interpretation: Performing Lab:[address] [address] Notes/Report: Sodium 137 135-145 mmol/L Occult Blood, Stool, Guaiac Reviewed date:01/12/2025 10:30:48 AM Interpretation:Negative Performing Lab: Notes/Report: Negative Occult Blood, Stool, Guaiac Neg UA ClnCatch+Micro w/rflx Cul t Reviewed date:01/12/2025 11:52:13 AM Interpretation: Performing Lab:[address] [address] Notes/Report: Urine, Clean Catch Color Urine Yellow Appearance Urine Clear PH 6.5 5.0-9.0 Glucose Urine UA Negative Negative mg/dL Urine Blood Negative Negative Specific [place] - Urine 1.010 1.005-1.025 Urine Protein Negative Neg-Trace mg/dL Urine Ketones Negative Negative mg/dL Nitrite Urine Negative Negative Leukocyte Esterase Urine Negative Negative RBC Urine 0-2 0-2 /HPF WBC Urine 0-5 0-5 /HPF Squamous Epithelial Cell Urine 0-2 0-2 /HPF Bacteria Urine None Seen None Seen Hyaline Casts Urine 0-2 0-2 /LPF Electrolytes Reviewed date:09/22/2024 06:06:11 PM Interpretation: Performing Lab:[facility], [address] [place] [phone] Notes/Report: Sodium 137 135-145 mmol/L Potassium 4.4 3.3-5.1 mmol/L Chloride 105 96-108 mmol/L Carbon Dioxide 29 22-29 mmol/L Anion Gap 7 12-20 Uric Acid Reviewed date:09/22/2024 06:05:36 PM Interpretation: Performing Lab:[address] [address] Notes/Report: Uric Acid 2.6 2.4-5.7 mg/dL TSH reflex Free T4 Reviewed date:09/22/2024 06:05:26 PM Interpretation: Performing Lab:[facility], [address] [place] [phone] Notes/Report: TSH reflex Free T4 1.71 0.32-4.0 uIU/mL Aldosterone Reviewed date:10/03/2024 12:34:25 PM Interpretation: Performing Lab:[facility], [address] [place] [phone] Notes/Report: Aldosterone TNP Renin Reviewed date:09/30/2024 04:47:30 PM Interpretation: Performing Lab:[facility], [address] [place] [phone] Notes/Report: Renin 2.86 0.25-5.82 ng/mL/h This test was developed and its analytical performance characteristics have been determined by [facility] [place] [place]. It has not been cleared or approved by the U.S. Food and Drug Administration. This assay has been validated pursuant to the CLIA regulations and is used for clinical purposes. THIS TEST WAS PERFORMED AT: [facility] [address] PAT CUMMINGS MD,PHD Aldost/Renin Reviewed date:10/03/2024 12:35:02 PM Interpretation: Performing Lab:[facility], [address] [place] [phone] Notes/Report: Aldosterone 2 see note ng/dL Unable to flag abnormal result(s), please refer to reference range(s) below: Adult Reference Ranges for Aldosterone, LC/MS/MS: Upright 8:00 - 10:00 am < or = 28 ng/dL Upright 4:00 - 6:00 pm < or = 21 ng/dL Supine 8:00 - 10:00 am 3 - 16 ng/dL THIS TEST WAS PERFORMED AT: [facility] [address] PAT CUMMINGS MD,PHD Plasma Renin Activity 2.58 0.25-5.82 ng/mL/h Aldosterone/Renin Ratio 0.8 0.9-28.9 Ratio This test was developed and its analytical performance characteristics have been determined by [facility] [place] [place]. It has not been cleared or approved by the U.S. Food and Drug Administration. This assay has been validated pursuant to the CLIA regulations and is used for clinical purposes. THIS TEST WAS PERFORMED AT: [facility] [place] [address] [place] [address] PAT CUMMINGS MD,PHD Metanephrines, Plasma Reviewed date:09/29/2024 05:20:12 PM Interpretation: Performing Lab:[facility], [address] [place] [phone] Notes/Report: Metanephrine, Free 47 <=57 pg/mL This test was developed and its analytical performance characteristics have been determined by [facility] [place] [place]. It has not been cleared or approved by the U.S. Food and Drug Administration. This assay has been validated pursuant to the CLIA regulations and is used for clinical purposes. Normetanephrines, Free 208 <=148 pg/mL This test was developed and its analytical performance characteristics have been determined by [facility] [place]. It has not been cleared or approved by the U.S. Food and Drug Administration. This assay has been validated pursuant to the CLIA regulations and is used for clinical purposes. Total Metanephrine, Free 255 <=205 pg/mL For additional information, please refer to http://education.[employer].GenJuice/faq/Me tFractFree (This link is being provided for [...] analytical performance characteristics have been determined by [facility] [place] [place]. It has not been cleared or approved by the U.S. Food and Drug Administration. This assay has been validated pursuant to the CLIA regulations and is used for clinical purposes. THIS TEST WAS PERFORMED AT: [facility] [address] [place] [address] PAT CUMMINGS MD,PHD Osmolality Urine Reviewed date:09/22/2024 03:17:39 PM Interpretation: Performing Lab:[address] [address] Notes/Report: Osmolality Urine [phone] mosm/kg Sodium Urine Random Reviewed date:09/22/2024 12:50:43 PM Interpretation: Performing Lab:[address] [address] Notes/Report: Sodium Urine Random 21.0 Immunofixation Pnl, Serum Reviewed date:09/27/2024 08:14:33 PM Interpretation: Performing Lab:[address] [address] Notes/Report: IgG 171 568-2533 mg/dL IgA 308 70-320 mg/dL IgM 95 50-300 mg/dL THIS TEST WAS PERFORMED AT: [facility] [address] [address] SARA BARAJAS MD Immunof[employer]ation Interpretation SEE NOTE Normal pattern. No monoclonal proteins detected. Cortisol Random Reviewed date:09/22/2024 05:36:07 PM Interpretation: Performing Lab:[address] [address] Notes/Report: Cortisol Random 11.8 Reference Range*: Before 10 am 6.2-19.4 ug/dL After 5 pm 2.3-11.9 ug/dL *Please interpret above results accordingly. This test was performed using the Boyd chemiluminescent method. Values obtained from different assay methods cannot be used interchangeably. Patients receiving fludrocortisone, prednisolone or prednisone may show artificially elevated cortisol values due to cross-reactivity. Ramos Pichardo Reviewed date:01/05/2025 12:42:55 PM Interpretation: Performing Lab:[facility] [address], [place] [address] Notes/Report: Hold Gold See Note Specimen held untested for 24 hours; Call to request Chemistry testing. MM tomosynthesis screening B I Reviewed date:05/01/2025 05:32:34 PM Interpretation: Performing Lab: Notes/Report: [facility] [address] [place] [address] Mammography Report Signed Patient: Maday Arboleda MR#: [id number] : 1950 Acct:[id number] Age/Sex: 74 / F ADM Date: 04/25/25 Loc: HO.MAMMO Attending Dr: Spencer Stanley MD Ordering Physician: Spencer Stanley MD Results: 1Ne gative Date of Service: 04/25/25 Follow Up: 1 Year From Orig ina Mammogram Procedure(s): MM tomosynthesis screening BI Accession Number(s): [id number] cc: Spencer Stanley MD EXAMINATION: MM SCREENING [...] 04/30/25 2136 DD/ 1303 TD/TT: 04/25/25 1325 Drafter (Cad) Electronic: [facility] [address] [place] [address] Mammography Report Signed Patient: Maday Arboleda MR#: [id number] : 1950 Acct:[id number] Age/Sex: 74 / F ADM Date: 04/25/25 Loc: HO.MAMMO Attending Dr: Spencer Stanley MD Ordering Physician: Spencer Stanley MD Results: 1Ne gative Date of Service: 04/25/25 Follow Up: 1 Year From Orig inal Mammogram Procedure(s): MM tomosynthesis screening BI Accession Number(s): [id number] cc: Spencer Stanley MD EXAMINATION: MM SCREENING [...] OV> 04/30/252135 DD/ 1303 TD/TT: 04/25/25 1325 Drafter (Cad) Electronic: US venous duplex LE RT Reviewed date:05/10/2025 06:16:57 PM Interpretation: Performing Lab: Notes/Report: [address] [address] Ultrasound Report Signed Patient: Maday Arboleda MR#: [id number] : 1950 Acct:[id number] Age/Sex: 74 / F ADM Date: 05/10/25 Loc: .US Attending Dr: Spencer Stanley MD Ordering Physician: Spencer Stanley MD Date of Service: 05/10/25 Procedure(s): US venous duplex LE RT Accession Number(s): [id number] cc: Spencer Stanley MD EXAMINATION: US TRIPLEX [...] 05/10/25 1116 DD/ 1052 TD/TT: 05/10/25 1102 Drafter (Cad) Electronic: [address] [address] Ultrasound Report Signed Patient: Maday Arboleda MR#: [id number] : 1950 Acct:[id number] Age/Sex: 74 / F ADM Date: 05/10/25 Loc: .US Attending Dr: Spencer Stanley MD Ordering Physician: Spencer Stanley MD Date of Service: 05/10/25 Procedure(s): US gale ous duplex LE RT Accession Number(s): [id number] cc: Spencer Stanley MD EXAMINATION: US TRIPLEX [...] 05/10/25 1116 DD/ 1052 TD/TT: 05/10/25 1102 Drafter (Cad) Electronic: US renal doppler Reviewed date:06/29/2025 04:24:55 PM Interpretation: Performing Lab: Notes/Report: [facility] [address] [place] [address] Ultrasound Report Signed Patient: Maday Arboleda MR#: [id number] : 1950 Acct:[id number] Age/Sex: 74 / F ADM Date: 06/21/25 [facility] Dr: Favian Nichols MD Ordering Physician: Favian Nichols MD Date of Service: 06/21/25 Procedure(s): US renal doppler Accession Number(s): [id number] cc: Spencer Stanley MD; Favian Nichols MD CLINICAL HISTORY: I10 - Essential (primary) hypertension Renal duplex ultrasound Comparison: None provided Technique: Real time duplex ultrasound imaging was performed by the night shift supervisor. Multiple membership sales representative static images were saved for review. Findings: [...] 06/23/25 1203 DD/ 1248 TD/TT: 06/21/25 1248 Drafter (Cad) Electronic: [facility] [address] [place] [address] [place] [address] Ultrasound Report Signed Patient: Maday Arboleda MR#: [id number] : 1950 Acct:[id number] Age/Sex: 74 / F ADM Date: 06/21/25 Loc: .[facility]X Attending Dr: Favian Nichols MD Ordering Physician: Favian Nichols MD Date of Service: 06/21/25 Procedure(s): US primo cai doppler Accession Number(s): [id number] cc: Spencer Stanley MD; Favian Nichols MD CLINICAL HISTORY: I1 0 - Essential (primary) hypertension Renal duplex ultrasound Comparison: None provided Technique: Real time duplex ultrasound imaging was performed by the night shift supervisor. Multipl e membership sales representative static images were saved for review. Findings: [...] 06/23/25 1203 DD/ 1248 TD/TT: 06/21/25 1248 Drafter (Cad) Electronic: US renal BI Reviewed date:06/21/2025 02:03:56 PM Interpretation: Performing Lab: Notes/Report: [facility] [address] [place] [address] [place] [address] Ultrasound Report Signed Patient: Maday Arboleda MR#: [id number] : 1950 Acct:[id number] Age/Sex: 74 / F ADM Date: 06/21/25 Loc: HO.HMGCX Attending Dr: Favian Nichols MD Ordering Physician: Favian Nichols MD Date of Service: 06/21/25 Procedure(s): US renal BI Accession Number(s): [id number] cc: Spencer Stanley MD; Favian Nichols MD CLINICAL HISTORY: I10 - Essential (primary) hypertension Renal duplex ultrasound Comparison: None provided Technique: Real time duplex ultrasound imaging was performed by the night shift supervisor. Multiple membership sales representative static images were saved for review. Findings: [...] 06/21/25 1248 DD/ 1248 TD/TT: 06/21/25 1248 Drafter (Cad) Electronic: [facility] [address] [place] [address] [place] [address] Ultrasound Report Signed Patient: Maday Arboleda MR#: [id number] : 1950 Acct:[id number] Age/Sex: 74 / F ADM Date: 06/21/25 Loc: .[facility]X Attending Dr: Favian Nichols MD Ordering Physician: Favian Nichols MD Date of Service: 06/21/25 Procedure(s): US primo Andrews Accession Number(s): [id number] cc: Spencer Stanley MD; Favian Nichols MD CLINICAL HISTORY: I1 0 - Essential (primary) hypertension Renal duplex ultrasound Comparison: None provided Technique: Real time duplex ultrasound imaging was performed by the night shift supervisor. Multipl e membership sales representative static images were saved for review. Findings: [...] 06/21/25 1248 DD/ 1248 TD/TT: 06/21/25 1248 Drafter (Cad) Electronic: Electrolytes Reviewed date:07/26/2025 05:56:50 PM Interpretation: Performing Lab:[facility], [address] [place] [address] Notes/Report: Sodium 132 135-145 mmol/L Potassium 4.6 3.3-5.1 mmol/L Chloride 101 96-108 mmol/L Carbon Dioxide 27 22-29 mmol/L Anion Gap 9 12-20 Blood Urea Nitrogen Reviewed date:07/26/2025 05:55:48 PM Interpretation: Performing Lab:[facility], [address] [place] [address] Notes/Report: Blood Urea Nitrogen 16 9-16 mg/dL Creatinine Reviewed date:07/26/2025 05:55:31 PM Interpretation: Performing Lab:[address] [address] Notes/Report: Creatinine 0.69 0.5-1.4 mg/dL Estimated Glomerular Filt Rate > 60 Chronic Kidney Disease: Estimated GFR < 60 mL/min/1.73m2 Severe Kidney Disease: Estimated GFR < 15 mL/min/1.73m2 Reason For Referral Reason acute diverticulitis Diagnosis [...] Referring Provider Speciality Internal edicine Referred Provider FAVIAN NICHOLS Referred Provider Specialty Nephrology General Notes Maria Del Carmen Borrego 11:56:39 AM EDT > info faxed Elmo Annette 09/12/2024 01:08:49 PM EST > appt is at their [facility] office [address] [facility] [address] Nichols, patient is aware of [...] Omeprazole 20 MG TAKE 1 CAPSULE BY [facility] EVERY DAY 30 MINUTES BEFORE BREAKFAST for 90 Not-Taki ng Finacea 15 % 1 application Oracle Manager ally ONCE A DAY IN THE [...] Problem Status W/U Status Risk Notes Problem [id number] Age-related osteoporosis without current pathological fracture (M81.0) Active confirmed Problem 371108688 Acute diverticulitis (K57.92) Active confirmed Problem 270558178 Reflux esophagit is (K21.00) Active confirmed Problem Vitamin D deficiency (22304962) Vitamin D deficiency (E55.9) Active confirmed Problem 426809896 Diverticulitis (K57.92) Active confirmed Problem Chronic frontal sinusitis (13526725) Chronic frontal sinusitis (J32.1) Active confirmed Problem 3546685 Diverticulitis o f large intestine without perforation or abscess without bleeding (K57.32) Active confirmed Problem 719344551 Other specified menopausal and perimenopausal disorders (N95.8) Active confirmed Problem 617131765 Lumbar disc disease (M51.9) Active confirmed Problem 002395581 Elevated LFTs (R79.89) Active confirmed Problem 017491226 Tubular adenoma of colon (D12.6) Active confirmed Problem 67953434 Essential hypertension (I10) Active confirmed Problem Osteoporosis (19771757) Osteoporosis (M81.0) Active confirmed Problem Disorder of female genital organs (181623554) Acute pelvic pain, female (N94.9) Active confirmed Problem 66385399 Oropharyngeal dysphagia (R13.12) Active confirmed Problem 50852589 Peptic ulcer disease (K27.9) Active confirmed Problem 28092211 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 confirmed Problem 402620574 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) Active confirmed Problem Macrocytosis - no anemia (364867273) Macrocytosis without anemia (D75.89) Active confirmed Vital Signs Heart Rate 60 /min 12/13/2024 weight is down 4 pounds since 1-6-25 Blood pressure diastolic 86 mm Hg 04/13/2025 Height 64 in 04/13/2025 Blood pressure systolic 172 mm Hg 04/13/2025 Weight 138 lbs 04/13/2025 BMI 23.69 kg/m2 04/13/2025 Encounters Encounter Location Date Provider Diagnosis Spencer Stanley MD [address] [place] [id number] 11/25/2024 Spencer Stanley Essential hypertensi on I10 Spencer Stanley MD [address] [place] [id number] 01/05/2025 Spencer Stanley Essential hypertensi on I10 ; Vitamin D deficiency E55.9 and Elevated LFTs R79.89 Spencer Stanley MD [address] [place] [id number] 02/23/2025 Spencer Stanley Diverticulitis K57.9 2 ; Rash R21 and Essential hypertension I10 Spencer Stanley MD [address] [place] [id number] 08/02/2024 Spencer Stanley Acute diverticulitis K57.92 ; Hyponatremia E87.1 and Upper abdominal pain R10.10 Spencer Stanley MD [address] [place] [address] [id number] 08/19/2024 Spencer Stanley Acute diverticulitis K57.92 Spencer Stanley MD [address] [place] [address] [id number] 09/01/2024 Spencer Celineardier Hyponatremia E87.1 Spencer Stanley MD [address] [place] [address] [id number] 09/02/2024 Spencer Bombardier Essential hypertensi on I10 and Hyponatremia E87.1 Spencer Stanley MD [address] [place] [address] [id number] 09/08/2024 Spencer Bombardier Essential hypertensi on I10 and Hyponatremia E87.1 Spencer Stanley MD [address] [place] [address] [id number] 09/09/2024 Spencer Bombardier Essential hypertensi on I10 and Hyponatremia E87.1 Spencer Stanley MD [address] [place] [address] [id number] 09/15/2024 Spencer Bombardier Essential hypertensi on I10 and Hyponatremia E87.1 Spencer Stanley MD [address] [place] [address] [id number] 09/22/2024 Spencer Bombardier Essential hypertensi on I10 and Hyponatremia E87.1 Spencer Stanley MD [address] [place] [address] [id number] 10/13/2024 Spencer Bombardier Essential hypertensi on I10 and Hyponatremia E87.1 Spencer Stanley MD [address] [place] [address] [id number] 11/14/2024 Spencer Stanley Viral URI J06.9 Spencer Stanley MD [address] [place] [address] [id number] 12/13/2024 Spencer Bombardier Essential hypertensi on I10 and Abdominal wall pain R10.9 Spencer Stanley MD [address] [place] [address] [id number] 01/12/2025 Spencer Stanley Essential hypertensi on I10 ; Macrocytosis without anemia D75.89 ; Elevated LFTs R79.89 ; Vitamin D deficiency E55.9 ; Colon cancer screening Z12.11 and Depression screening Z13.31 Spencer Stanley MD [address] [place] [address] [id number] 04/13/2025 Spencer Stanley Essential hypertensi on I10 and Bakers cyst, right M71.21 Spencer Stanley MD [address] [place] [address] [id number] 09/05/2024 Spencer Stanley MD [address] [place] [address] [id number] 01/09/2025 Spencer Stanley MD [address] [place] [address] [id number] 01/20/2025 Spencer Stanley MD [address] [place] [address] [id number] 02/14/2025 Spencer Stanley Assessments Encounter Date Diagnosis [...] started. restart the valsartan/ order faxed to [facility] de[facility], patient verbalized understanding of directions [...] I10) doing much better/ going to see risk management specialist 09/22/2024 Hyponatremia (ICD-10 - E87.1) he has [...] - M71.21) THE ORDER WAS FAXED TO [facility] CENTRALIZED FOR SCHEDULING 01/05/2025 Vitamin D deficiency (ICD-10 - E55.9) 02/23/2025 Essential hypertension (ICD-10 - I10) having side effects with every medicine that she takes and is making adjustments of her own and is difficult to get her bp controlled. to see manual plate filler again 08/02/2024 Upper abdominal pain (ICD-10 - [...] 01/05/2025 Next Appt Details Provider Name:Spencer correa, 01/08/2026 07:30:00 AM, [address] [place] [address], [address], [place], [place], [id number], Provider Name:Spencer correa, 01/15/2026 09:30:00 AM, [address], [address], [place], [place], [id number], Insurance Providers Payer Name Payer Address Payer Phone Subscriber Number Group Number Insured Name Patient Relationship to Insured Coverage Start Date Coverage End Date MEDICARE NHIC [facility] [place] [address] [id number] Maday Arboleda Self - patient is the insured MEDEX BCBS OF [facility] [id number] [place] [address] [id number] Maday Arboleda Self - patient is the insured Medical (General) History Medical History History ICD Code can tolerate doxycycline without difficu lty Refuses flu [id number] colonoscopy 04/2009 - adenoma due in 5 years for upper and lower; colonoscopy and endo done 02/01/[address] Mckinney (repeat 01/2020) hysterectomy (has one ovary); no paps on ly pelvic exam Tinnitus of left ear colonoscopy done 04/29, due in 5 years
--- OUTSIDE RECORDS SUMMARY | 2025-08-02 16:06 | XMS_ITS | Patient Health Record ---
Author Organization [facility] Address [address] [place] [address] Care Team Providers Care Rhinestone Setter Name Role Phone Spencer Stanley MD Primary Care Provider Dany Regan Unavailable [phone] Allergies Allergen (clinical drug ingredient) Drug/Non Drug [...] Problem Status W/U Status Risk Notes Problem 7952633 Diverticulitis o f large intestine without perforation or abscess without bleeding (K57.32) Active confirmed Problem 724652498 Encounter for screening for malignant neoplasm of colon (Z12.11) Active confirmed Problem 686983742 Gastroesophageal reflux disease without esophagitis (K21.9) Active confirmed Problem 134110400 Elevated liver enzymes (R74.8) Active confirmed Problem Diverticulitis of colon (045622369) Diverticulitis of colon (K57.32) Active confirmed Problem 053891939 NSAID long-term use (Z79.1) Active confirmed Problem 307410364 Hx of adenomatou s colonic polyps (Z86.010) Active confirmed Vital Signs Blood pressure diastolic 11 mm Hg 12/06/2024 Height 63.75 in 12/06/2024 Blood pressure systolic 111 mm Hg 12/06/2024 Weight 136 lbs 12/06/2024 BMI 23.53 kg/m2 12/06/2024 Encounters Encounter Location Date Provider Diagnosis [facility] [address] [place] [address] 12/06/2024 Dany Willis Diverticulitis of co laya K57.32 Assessments Encounter Date Diagnosis (ICD Code) Assessment Notes Treatment Notes Treatment Clinical Notes Section Notes 12/06/2024 Diverticulitis of colon (ICD-10 - K57.32) Repeat colonoscopy in 04/2026 Go on a liquid diet for 1 or 2 days if the diverticulitis flares up, but definitely go on antibiotics if not getting better Need [facility] CT scan in 2023 Overall, Maday presently [...] Date MEDICARE OF [place] [address] [place] [address] [id number] MADAY ARBOLEDA Self - patient is the insured [employer] ATT[employer] CLAIMS [address] [place] [address] [id number] ROBLESMADAY Self - patient is the insured [...] tubular adenoma Diverticulitis 2023--had a CT at [facility] Surgical History Surgery Date(Month/Year) Hammer toe Hysterectomy w/removal of 1 ovary
== END 2025-08-02 14:25 | disposition home or self-care (01) ==
LOC: HO.HKA 13:39
PROVIDERS: PCP Internal Medicine; Visit Provider Internal Medicine Nephrology
DX: I10 Essential (primary) hypertension (principal); E87.1 Hypo-osmolality and hyponatremia
CPT/HCPCS: 99214

== ENCOUNTER → 2025-08-02 13:38 | Outpatient (BNVA) | payer MEDICARE, SELFPAY | PROVIDERS: PCP Internal Medicine; Visit Provider Internal Medicine Nephrology | DX: I10 Essential (primary) hypertension (principal); Z87.891 Personal history of nicotine dependence; E87.1 Hypo-osmolality and hyponatremia; R00.0 Tachycardia, unspecified; R07.89 Other chest pain | CPT/HCPCS: 99212 ==

== ENCOUNTER 2025-08-09 10:11 | Outpatient (REF) | payer MEDICARE, SELFPAY ==
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
--- OUTSIDE RECORDS SUMMARY | 2025-01-12 05:30 | XMS_ITS ---
Author Organization Spencer Stanley MD Address [address] [place] [phone] Care Team Providers Care Wharf Tender Head Name Role Phone Spencer Stanley Primary Care [...] t Reviewed date:01/12/2025 11:52:13 AM Interpretation: Performing Lab:[facility], [address] [place] [phone] Notes/Report: Urine, Clean Catch Color Urine Yellow Appearance Urine Clear PH 6.5 5.0-9.0 Glucose Urine UA Negative Negative mg/dL Urine Blood Negative Negative Specific [place] - Urine 1.010 1.005-1.025 Urine Protein Negative [...] 20 MG TAKE 1 CAPSULE BY [place] [facility] EVERY DAY 30 MINUTES BEFORE [...] day Active Finacea 15 % 1 application Art Conservator ally ONCE A DAY IN THE EVENING [...] Risk Notes Problem Macrocytosis - no anemia (796505767) Macrocytosis without anemia (D75.89) Active confirmed Vital Signs Blood pressure systolic 144 mm Hg 01/13/20 25 Blood pressure diastolic 72 mm Hg 025 Height 64 in 01/12/2025 Weight 141 lbs 01/12/2025 BMI 24.2 kg/m2 01/12/2025 Encounters Encounter Location Date Provider Diagnosis Spencer Stanley MD [address] [place] [address] [place] [phone] 01/12/2025 Spencer Stanley Essential hypertension I10 ; [...] AM, [address], [address], [place], [phone], Provider Name:Spencer Mccullough marcosr, 01/15/2026 09:30:00 AM, [address], [address], [place], [phone], Progress Notes * Maday ARBOLEDA MDOB:[birth year] (74 yo F)Acc No.[id number]:01/12/2025 Patient: Maday DESAI Provider: Neris Stanley MD :1950 A ge:74 Y S ex:Female Date:01/12/2025 Address:[address] [place], [place] [phone] Subjective: * Chief Complaints: * C OMP [...] Direct 0.2 0.0-0.5 - mg/dL L ab:Comprehensive [place]. Panel Fast (Order Date 01/05/2025) (Collection Date [...] guaiac negative.? FEMALE GENITOURINARY: d one by inspector watch train. EXTREMITIES: n o clubbing, cyanosis, or edema. [...] 01/12/2025 Generated for Kwaku hernández/Jameson/Marilinitting on: 1 11:26 AM EDT History and Physical Notes * [...] stool guaiac negative FEMALE GENITOURINARY: done by inspector watch train ORAL CAVITY: mucosa moist
--- OUTSIDE RECORDS SUMMARY | 2025-01-20 04:34 | XMS_ITS ---
Author Organization Spencer Stanley MD Address [address] [place] [phone] Care Team Providers Care Electroencephalograph Technician Name Role Phone Spencer Stanley Primary Care Provider REASON FOR VISIT US ABD orders Encounters Encounter Location Date Provider Diagnosis Spencer Stanley MD 10 [facility] [address] [place] [phone] 01/20/2025 Spencer Stanley Plan Of Treatment Next Appt Details Provider Name:Spencer correa, 01/08/2026 07:30:00 AM, [address] [place] [address], [address], [phone], Provider Name:Spencer correa, 01/15/2026 09:30:00 AM, [address] [place] [address], [address], [phone], Progress Notes * Maday ARBOLEDA MDOB:[birth year] (74 yo F)Acc No.[id number]:01/20/2025 Patient: Ayan GALEXUS Maday Mario :1950 A ge:74 Y S ex:Female Address:[address] [place] [address], [place] [address] * true * Date: Generated for Kwaku hernández/Jameson/eTransmitting on: 11:26 AM EDT
--- OUTSIDE RECORDS SUMMARY | 2025-02-14 11:03 | XMS_ITS ---
Author Organization Spencer Stanley MD Address [address] [place] [phone] Care Team Providers Care Hat And Cap Parts Cutter Hand Name Role Phone Spencer Stanley Primary Care Provider REASON FOR VISIT several issues Encounters Encounter Location Date Provider Diagnosis Spencer Stanley MD [address] [place] [address] [place] [phone] 02/14/2025 Spencer Stanley Plan Of Treatment Next Appt Details Provider Name:Spencer correa, 01/08/2026 07:30:00 AM, [address] [place] [address], [address], [phone], Provider Name:Spencer correa, 01/15/2026 09:30:00 AM, [address] [place] [address], [address], [phone], Progress Notes * Maday ARBOLEDA MDOB:[birth year] (74 yo F)Acc No.[id number]:02/14/2025 Patient: Ayan GAMELINARaquel Maday Mario :1950 A ge:74 Y S ex:Female Address:[address] [place] [address], [place] [address] * true * Date: Generated for Kwaku hernández/Jameson/eTransmitting on: 11:26 AM EDT
--- OUTSIDE RECORDS SUMMARY | 2025-02-23 10:15 | XMS_ITS ---
Author Organization Spencer Stanley MD Address [address] [place] [phone] Care Team Providers Care Contract Administration Specialist Name Role Phone Spencer Stanley Primary Care Provider [phone] Allergies Allergen (clinical drug ingredient) Drug/Non Drug Allergy documented on EMR Reaction Allergy Type Onset Date Status epinephrine (uncoded) heart palpitations Allergy Active tetracycline tetracycline (uncoded) rash Allergy Active REASON FOR VISIT BP Medications Medication SIG (Take, Route, Frequency, Duration) Notes Start Date End Date Status dilTIAZem HCl 60 MG as directed Orally Active Finacea 15 % 1 application Flame Cutting Supervisor ally ONCE A DAY IN THE EVENING [...] Omeprazole 20 MG TAKE 1 CAPSULE BY [facility] EVERY DAY 30 MINUTES BEFORE BREAKFAST for 90 Not-Taki ng Valtrex 500 MG 1 tablet Orally ever y 12 hrs for 10 day(s) Not-Taking Vital Signs Blood pressure systolic 178 mm Hg 02/24/20 25 Blood pressure diastolic 80 mm Hg 025 Height 64 in 02/23/2025 Weight 138 lbs 02/23/2025 BMI 23.69 kg/m2 02/23/2025 weight is down 3 pounds [facility] e 01-12-25 Encounters Encounter Location Date Provider Diagnosis Spencer Stanley MD [address] [place] [address] Drive [address] [place], [place] [phone] 02/23/2025 Spencer Stanley Diverticulitis K57.9 2 ; [...] to get her bp controlled. to see manager brand again Plan Of Treatment Medication Medication Name [...] to get her bp controlled. to see manager brand again Next Appt Details Provider Name:Spencer correa, 01/08/2026 07:30:00 AM, [address] [place] [address], [address], [place], [place], [phone], Provider Name:Spencer correa, 01/15/2026 09:30:00 AM, [address] [place] [address], [address], [place], [place], [phone], Progress Notes * Maday ARBOLEDA MDOB:[birth year] (75 yo F)Acc No.[id number]:02/23/2025 Progress Notes Patient: Maday DESAI Provider: Neris Stanley MD :1950 A ge:74 Y S ex:Female Date:02/23/2025 Address:[address] [place], [place] [phone] Subjective: * Chief Complaints: * 1 . [...] an tolerate doxycycline without difficulty, Refuses flu [id number], colonoscopy 04/2009 - adenoma due in 5 [...] to get her bp controlled. to see manager brand again * * The named appointment provid er may or may not be the originator of this progress note, and it is not deemed complete until electronically signed by the appointment provider. Sign off status: Pending * Provider: Neris Stanley MD Date: 0 02/23/2025 Generated for Kwaku hernández/Jameson/Marilinitting on: 1 11:27 AM EDT History and Physical Notes * [...]
--- OUTSIDE RECORDS SUMMARY | 2025-04-13 06:15 | XMS_ITS ---
Author Organization Spencer Stanley MD Address [address] [place] [phone] Care Team Providers Care Metallurgy Laboratory Technician Name Role Phone Spencer Stanley Primary [...] Not-Taki ng Finacea 15 % 1 application Rotary Surface Grinder ally ONCE A DAY IN THE [...] Location Date Provider Diagnosis Spencer Stanley MD [address] [place] [address] Drive [address] [place] [phone] 04/13/2025 Specner Stanley Essential hypertension I10 and Bakers cyst, right M71.21 Assessments Encounter Date Diagnosis (ICD Code) Assessment Notes Treatment Notes Treatment Clinical Notes Section Notes 04/13/2025 Essential hypertension (ICD-10 - I10) has just had a change in her bp meds, will continue current regiment 04/13/2025 Bakers cyst, right (ICD-10 - M71.21) THE ORDER WAS FAXED TO [facility] [place] [facility]ENTR[facility] FOR SCHEDULING Plan [...] cyst, right THE ORDER WAS FAXED TO [facility] FOR SCHEDULING Pending Test Test Name Order Date US LEG RT VENOUS DOPPLER 04/13/2025 Next Appt Details Provider Name:Spencer correa, 01/08/2026 07:30:00 AM, [address] [place] [address], Suite [facility], [place], [place], [phone], Provider Name:Spencer correa, 01/15/2026 09:30:00 AM, [address] [place] [address], Suite [facility], [place], [place], [phone], Progress Notes * Maday ARBOLEDA MDOB:[birth year] (74 yo F)Acc No.[id number]:04/13/2025 Progress Notes Patient: Maday DESAI Provider: Neris Stanley MD :1950 A ge:74 Y S ex:Female Date:04/13/2025 Address:[address] [place] [address] Jose Fish [id number] Subjective: * Chief Complaints: * 3 MO [...] DOPPLER Notes: THE ORDER WAS FAXED TO [facility] FOR SCHEDULING * Procedure Codes: * * Sign off status: Completed true * Provider: Neris Stanley MD Date: 0 04/13/2025 Generated for Kwaku hernández/Jameson/eTransmitting on: 1 11:26 AM EDT History and [...]
--- OUTSIDE RECORDS SUMMARY | 2025-08-09 11:26 | XMS_ITS | Clinical Summary ---
Author Organization [facility] Address [address] [address] Phone Care Team Providers Care Stringed Instrument Tuner Name Role Phone Spencer Stanley MD Primary [...] file Insurance MEDICARE PART A & B [employer] MEDEX SUPPLEMENT MEDICARE PART A & B [facility] MEDEX SUPPLEMENT MEDICARE PART A & B [facility] MEDEX SUPPLEMENT MEDICARE PART A & B [employer] MED[employer] SUPPLEMENT MEDICARE PART A & B [employer] MEDEX SUPPLEMENT MEDICARE PART A & B [facility] MEDEX SUPPLEMENT Care Teams Stringed Instrument Tuner Relationship Specialty Start Date End Date Spencer Stanley MD [address] [place] [address] [place] [address] PCP - General Internal Medicine 07/19/24 Additional Source Comments The information contained in this document represents components of the legal health record. It is not the complete legal health record.[facility]
--- OUTSIDE RECORDS SUMMARY | 2025-08-09 11:26 | XMS_ITS | Patient Health Record ---
[facility] Address [address] [place] [address] Care Team Providers Care Generation Engineer Name Role Phone Spencer Stanley MD Primary Care Provider Sarabjit Caballero Unavailable [phone] Allergies Allergen (clinical drug ingredient) Drug/Non Drug [...] W/U Status Risk Notes Problem Plantar wart (76232003) Plantar wart (B07.0) Active confirmed Problem Onychomycosis (162802833) Onychomycosis (B35.1) Active confirmed Vital Signs Blood pressure diastolic 80 mm Hg 11/15/2024 Height 5 ft 4 in in 11/15/2024 Blood pressure systolic 120 mm Hg 11/15/2024 Weight 142 lbs 11/15/2024 BMI 24.37 kg/m2 11/15/2024 Procedures Procedure Date Ordered Date Performed Result Body Sit e 98763-KXXIALL NAIL, -11/15/2024 N/A 85181-Niut Destruction, -11/15/2024 N/A Encounters Encounter Location Date Provider Diagnosis [facility] [address] 11/15/2024 Sarabjit Manriquez Pain in left toe(s) M79.675 ; Onychomycosis B35.1 ; Right foot pain M79.671 ; Plantar wart B07.0 ; Pain in right ankle and joints of right foot M25.571 ; Bursitis of intermetatarsal bursa of right foot M77.51 and Metatarsalgia, right foot M77.[address] [facility] [address] 11/15/[address] [facility] [address] 11/17/2024 Sarabjit Manriquez Assessments Encounter Date Diagnosis [...] X ray : Foot, right 3V 09/25/2022 24861-ORZFLDQ NAIL, 1-5 11/15/2024 24093-Boqr Destruction, 1-14 11/15/2024 61899-Yieovmeb Plate 12/08/2017 99164- Debride <25 sq cm 12/25/2017 Insurance Providers Payer Name Payer Address Payer Phone Subscriber Number Group Number Insured Name Patient Relationship to Insured Coverage Start Date Coverage End Date Medicare [employer] [address] [place] [address] [id number] Maday Draper Self - patient is the insured [employer] [facility] [address] [place] [address] [id number] Maday Draper Self - patient is the insured Medical (General) History Medical History History ICD Code Diverticulosis Measles Mumps Chicken pox Osteoporosis Reflux ( GERD) Hypertension Elevated LFTs Vitamin D deficiency Hypercalciuria Tubular adenoma of colon Cataracts Surgical History Surgery Date(Month/Year) hysterectomy 1986 hammer toe 1998
--- OUTSIDE RECORDS SUMMARY | 2025-08-09 11:27 | XMS_ITS | Patient Health Record ---
Author Organization [facility] Address [address] [place] [address] Care Team Providers Care Chair Inspector Name Role Phone Spencer Stanley MD Primary Care Provider Dany Regan Unavailable [phone] Allergies Allergen (clinical drug ingredient) Drug/Non Drug [...] Problem Status W/U Status Risk Notes Problem 8470874 Diverticulitis o f large intestine without perforation or abscess without bleeding (K57.32) Active confirmed Problem 411088473 Encounter for screening for malignant neoplasm of colon (Z12.11) Active confirmed Problem 383003893 Gastroesophageal reflux disease without esophagitis (K21.9) Active confirmed Problem 330986976 Elevated liver enzymes (R74.8) Active confirmed Problem Diverticulitis of colon (320885741) Diverticulitis of colon (K57.32) Active confirmed Problem 899960424 NSAID long-term use (Z79.1) Active confirmed Problem 711749368 Hx of adenomatou s colonic polyps (Z86.010) Active confirmed Vital Signs Blood pressure diastolic 11 mm Hg 12/06/2024 Height 63.75 in 12/06/2024 Blood pressure systolic 111 mm Hg 12/06/2024 Weight 136 lbs 12/06/2024 BMI 23.53 kg/m2 12/06/2024 Encounters Encounter Location Date Provider Diagnosis [facility] [address] [place] [address] 12/06/2024 Dany Willis Diverticulitis of co laya K57.32 Assessments Encounter Date Diagnosis (ICD Code) Assessment Notes Treatment Notes Treatment Clinical Notes Section Notes 12/06/2024 Diverticulitis of colon (ICD-10 - K57.32) Repeat colonoscopy in 04/2026 Go on a liquid diet for 1 or 2 days if the diverticulitis flares up, but definitely go on antibiotics if not getting better Need [facility] CT scan in 2023 Overall, Maday [...] Date MEDICARE OF [place] [address] [place] [address] [id number] MADAY ARBOLEDA Self - patient is the insured MED[employer] ATTN CLAIMS [address] [place] [address] [id number] ROBLESMADAY Self - patient is the insured Medical (General) History Medical History History ICD Code 2003 and 05/07/2009 Colonoscopy--negative for polyps Tubular adenoma--removed in 2000 Internal hemorrhoids Diverticulosis-mild divertic ulitis of the distal descending/proximal sigmoid colon described on a CT scan in 12/2012, 11/2016, and 09/2018 GERD--EGD in 2003-small HH--no esophagit is, no Arevalo's Hiatal hernia Denies PR,DM,CVA,Lung disease,renal dise ase Osteoporosis Negative abdominal ultrasound in 01/2015--colonoscopy with sma ll tubular adenomas removed, diverticulosis, and internal hemorrhoids 01/2015-EGD with a small hiat al hernia, but no esophagitis nor Arevalo's esophagus Hx of kidney stones Hypertension Colonoscopy 04/2021 with a single tubular adenoma Diverticulitis 2023--had a CT at [facility] Surgical History Surgery Date(Month/Year) Hammer toe Hysterectomy w/removal of 1 ovary
--- OUTSIDE RECORDS SUMMARY | 2025-08-09 11:27 | XMS_ITS | Patient Health Record ---
Author Organization Spencer Stanley MD Address [address] [place] [phone] Care Team Providers Care Baler Name Role Phone Spencer Stanley Primary Care Provider Allergies Allergen (clinical drug ingredient) Drug/Non Drug Allergy documented on EMR Reaction Allergy Type Onset Date Status epinephrine (uncoded) heart palpitations Allergy Active tetracycline tetracycline (uncoded) rash Allergy Active Results Component Value Reference Range Notes Complete Blood Count Auto Di ff Reviewed date:01/05/2025 04:35:02 PM Interpretation: Performing Lab:[facility], [address] [place] [phone] Notes/Report: White Blood Count 5.0 4.8-10.8 X10*3/uL [...] NRBC Abs Auto 0.000 0.0-0.012 X10*3/uL Comprehensive [place]. Panel Fa st Reviewed date:01/05/2025 12:43:17 PM Interpretation: Performing Lab:[facility], [address] [place] [phone] Notes/Report: Sodium 140 135-145 mmol/L Potassium 4.1 [...] Panel Reviewed date:01/05/2025 12:43:41 PM Interpretation: Performing Lab:[address] [address] Notes/Report: Bilirubin Direct 0.2 0.0-0.5 mg/dL Lipid Panel Reviewed date:01/05/2025 12:43:26 PM Interpretation: Performing Lab:[address] [address] Notes/Report: Triglycerides 59 <150 mg/dL Desirable Triglyceride: [...] Total Reviewed date:01/05/2025 12:43:34 PM Interpretation: Performing Lab:[address] [address] Notes/Report: Vitamin D 25-OH Total 62.4 >30 [...] Sodium Reviewed date:09/01/2024 12:26:42 PM Interpretation: Performing Lab:[address] [address] Notes/Report: Sodium 137 135-145 mmol/L Occult Blood, Stool, Guaiac Reviewed date:01/12/2025 10:30:48 AM Interpretation:Negative Performing Lab: Notes/Report: Negative Occult Blood, Stool, Guaiac Neg UA ClnCatch+Micro w/rflx Cul t Reviewed date:01/12/2025 11:52:13 AM Interpretation: Performing Lab:[address] [phone] Notes/Report: Urine, Clean Catch Color Urine Yellow Appearance Urine Clear PH 6.5 5.0-9.0 Glucose Urine UA Negative Negative mg/dL Urine Blood Negative Negative Specific [place] - Urine 1.010 1.005-1.025 Urine Protein Negative Neg-Trace mg/dL Urine Ketones Negative Negative mg/dL Nitrite Urine Negative Negative Leukocyte Esterase Urine Negative Negative RBC Urine 0-2 0-2 /HPF WBC Urine 0-5 0-5 /HPF Squamous Epithelial Cell Urine 0-2 0-2 /HPF Bacteria Urine None Seen None Seen Hyaline Casts Urine 0-2 0-2 /LPF Electrolytes Reviewed date:09/22/2024 06:06:11 PM Interpretation: Performing Lab:[facility], [address] [place] [phone] Notes/Report: Sodium 137 135-145 mmol/L Potassium 4.4 3.3-5.1 mmol/L Chloride 105 96-108 mmol/L Carbon Dioxide 29 22-29 mmol/L Anion Gap 7 12-20 Uric Acid Reviewed date:09/22/2024 06:05:36 PM Interpretation: Performing Lab:[address] [address] Notes/Report: Uric Acid 2.6 2.4-5.7 mg/dL TSH reflex Free T4 Reviewed date:09/22/2024 06:05:26 PM Interpretation: Performing Lab:[facility], [address] [place] [phone] Notes/Report: TSH reflex Free T4 1.71 0.32-4.0 uIU/mL Aldosterone Reviewed date:10/03/2024 12:34:25 PM Interpretation: Performing Lab:[facility], [address] [place] [phone] Notes/Report: Aldosterone TNP Renin Reviewed date:09/30/2024 04:47:30 PM Interpretation: Performing Lab:[facility], [address] [place] [phone] Notes/Report: Renin 2.86 0.25-5.82 ng/mL/h This test was developed and its analytical performance characteristics have been determined by [facility] [place], [place]. It has not been cleared or approved by the U.S. Food and Drug Administration. This assay has been validated pursuant to the CLIA regulations and is used for clinical purposes. THIS TEST WAS PERFORMED AT: [facility] [address] PAT CUMMINGS MD,PHD Aldost/Renin Reviewed date:10/03/2024 12:35:02 PM Interpretation: Performing Lab:[facility], [address] [place] [phone] Notes/Report: Aldosterone 2 see note ng/dL Unable to flag abnormal result(s), please refer to reference range(s) below: Adult Reference Ranges for Aldosterone, LC/MS/MS: Upright 8:00 - 10:00 am < or = 28 ng/dL Upright 4:00 - 6:00 pm < or = 21 ng/dL Supine 8:00 - 10:00 am 3 - 16 ng/dL THIS TEST WAS PERFORMED AT: [facility] [address] PAT CUMMINGS MD,PHD Plasma Renin Activity 2.58 0.25-5.82 ng/mL/h Aldosterone/Renin Ratio 0.8 0.9-28.9 Ratio This test was developed and its analytical performance characteristics have been determined by [facility] [place], [place]. It has not been cleared or approved by the U.S. Food and Drug Administration. This assay has been validated pursuant to the CLIA regulations and is used for clinical purposes. THIS TEST WAS PERFORMED AT: [facility] [place] [id number] [place] [address] PAT CUMMINGS MD,PHD Metanephrines, Plasma Reviewed date:09/29/2024 05:20:12 PM Interpretation: Performing Lab:[facility], [address] [place] [phone] Notes/Report: Metanephrine, Free 47 <=57 pg/mL This test was developed and its analytical performance characteristics have been determined by [facility] [place]. It has not been cleared or approved by the U.S. Food and Drug Administration. This assay has been validated pursuant to the CLIA regulations and is used for clinical purposes. Normetanephrines, Free 208 <=148 pg/mL This test was developed and its analytical performance characteristics have been determined by [facility] [place], [place]. It has not been cleared or approved by the U.S. Food and Drug Administration. This assay has been validated pursuant to the CLIA regulations and is used for clinical purposes. Total Metanephrine, Free 255 <=205 pg/mL For additional information, please refer to http://education.tinyclues.FORMTEK/faq/Me tFractFree (This link is being provided for [...] analytical performance characteristics have been determined by [facility] [place], [place]. It has not been cleared or approved by the U.S. Food and Drug Administration. This assay has been validated pursuant to the CLIA regulations and is used for clinical purposes. THIS TEST WAS PERFORMED AT: [facility] [address] [place] [address] PAT CUMMINGS MD,PHD Osmolality Urine Reviewed date:09/22/2024 03:17:39 PM Interpretation: Performing Lab:[address] [phone] Notes/Report: Osmolality Urine 234 573-2989 mosm/kg Sodium Urine Random Reviewed date:09/22/2024 12:50:43 PM Interpretation: Performing Lab:[address] [phone] Notes/Report: Sodium Urine Random 21.0 Immunofixation Pnl, Serum Reviewed date:09/27/2024 08:14:33 PM Interpretation: Performing Lab:[address] [address] Notes/Report: IgG 638 360-5246 mg/dL IgA 308 70-320 mg/dL IgM 95 50-300 mg/dL THIS TEST WAS PERFORMED AT: [facility] [address] [address] SARA BARAJAS MD Immunofixation Interpretation SEE NOTE Normal pattern. No monoclonal proteins detected. Cortisol Random Reviewed date:09/22/2024 05:36:07 PM Interpretation: Performing Lab:[address] [address] Notes/Report: Cortisol Random 11.8 Reference Range*: Before 10 am 6.2-19.4 ug/dL After 5 pm 2.3-11.9 ug/dL *Please interpret above results accordingly. This test was performed using the Boyd chemiluminescent method. Values obtained from different assay methods cannot be used interchangeably. Patients receiving fludrocortisone, prednisolone or prednisone may show artificially elevated cortisol values due to cross-reactivity. Ramos Pichardo Reviewed date:01/05/2025 12:42:55 PM Interpretation: Performing Lab:[facility] [address], [place] [address] Notes/Report: Hold Gold See Note Specimen held untested for 24 hours; Call to request Chemistry testing. MM tomosynthesis screening B I Reviewed date:05/01/2025 05:32:34 PM Interpretation: Performing Lab: Notes/Report: [facility] [address] [place] [address] Mammography Report Signed Patient: Maday Arboleda MR#: [id number] : 1950 Acct:[id number] Age/Sex: 74 / F ADM Date: 04/25/25 Loc: HO.MAMMO Attending Dr: Spencer Stanley MD Ordering Physician: Spencer Stanley MD Results: 1Ne gative Date of Service: 04/25/25 Follow Up: 1 Year From Orig ina Mammogram Procedure(s): MM tomosynthesis screening BI Accession Number(s): [id number] cc: Spencer Stanley MD EXAMINATION: MM SCREENING [...] 04/30/25 2136 DD/ 1303 TD/TT: 04/25/25 1325 Teacher Physically Impaired: [facility] [address] [place] [address] Mammography Report Signed Patient: Maday Arboleda MR#: [id number] : 1950 Acct:[id number] Age/Sex: 74 / F ADM Date: 04/25/25 Loc: HO.MAMMO Attending Dr: Spencer Stanley MD Ordering Physician: Spencer Stanley MD Results: 1Ne gative Date of Service: 04/25/25 Follow Up: 1 Year From Orig inal Mammogram Procedure(s): MM tomosynthesis screening BI Accession Number(s): [id number] cc: Spencer Stanley MD EXAMINATION: MM SCREENING [...] OV> 04/30/252135 DD/ 1303 TD/TT: 04/25/25 1325 Teacher Physically Impaired: US venous duplex LE RT Reviewed date:05/10/2025 06:16:57 PM Interpretation: Performing Lab: Notes/Report: [address] [address] Ultrasound Report Signed Patient: Maday Arboleda MR#: [id number] : 1950 Acct:[id number] Age/Sex: 74 / F ADM Date: 05/10/25 Loc: .US Attending Dr: Spencer Stanley MD Ordering Physician: Spencer Stanley MD Date of Service: 05/10/25 Procedure(s): US venous duplex LE RT Accession Number(s): [id number] cc: Spencer Stanley MD EXAMINATION: US TRIPLEX [...] 05/10/25 1116 DD/ 1052 TD/TT: 05/10/25 1102 Teacher Physically Impaired: [address] [address] Ultrasound Report Signed Patient: Maday Arboleda MR#: [id number] : 1950 Acct:[id number] Age/Sex: 74 / F ADM Date: 05/10/25 Loc: .US Attending Dr: Spencer Stanley MD Ordering Physician: Spencer Stanley MD Date of Service: 05/10/25 Procedure(s): US gale ous duplex LE RT Accession Number(s): [id number] cc: Spencer Stanley MD EXAMINATION: US TRIPLEX [...] 05/10/25 1116 DD/ 1052 TD/TT: 05/10/25 1102 Teacher Physically Impaired: US renal doppler Reviewed date:06/29/2025 04:24:55 PM Interpretation: Performing Lab: Notes/Report: [facility] [address] [facility] [place] [address] Ultrasound Report Signed Patient: Maday Arboleda MR#: [id number] : 1950 Acct:[id number] Age/Sex: 74 / F ADM Date: 06/21/25 [facility] Dr: Favian Nichols MD Ordering Physician: Favian Nichols MD Date of Service: 06/21/25 Procedure(s): US renal doppler Accession Number(s): [id number] cc: Spencer Stanley MD; Favian Nichols MD CLINICAL HISTORY: I10 - Essential (primary) hypertension Renal duplex ultrasound Comparison: None provided Technique: Real time duplex ultrasound imaging was performed by the seaman officer. Multiple cash application representative static images were saved for review. [...] 06/23/25 1203 DD/ 1248 TD/TT: 06/21/25 1248 Teacher Physically Impaired: [facility] [address] [place] [address] [place] [address] Ultrasound Report Signed Patient: Maday Arboleda MR#: [id number] : 1950 Acct:[id number] Age/Sex: 74 / F ADM Date: 06/21/25 Loc: .[facility] Attending Dr: Favian Nichols MD Ordering Physician: Favian Nichols MD Date of Service: 06/21/25 Procedure(s): US primo cai doppler Accession Number(s): [id number] cc: Spencer Stanley MD; Favian Nichols MD CLINICAL HISTORY: I1 0 - Essential (primary) hypertension Renal duplex ultrasound Comparison: None provided Technique: Real time duplex ultrasound imaging was performed by the seaman officer. Multipl e cash application representative static images were saved for review. [...] 06/23/25 1203 DD/ 1248 TD/TT: 06/21/25 1248 Teacher Physically Impaired: US renal BI Reviewed date:06/21/2025 02:03:56 PM Interpretation: Performing Lab: Notes/Report: [facility] [address] [place] [address] [place] [address] Ultrasound Report Signed Patient: Maday Arboleda MR#: [id number] : 1950 Acct:[id number] Age/Sex: 74 / F ADM Date: 06/21/25 Loc: HO.[facility] Attending Dr: Favian Nichols MD Ordering Physician: Favian Nichols MD Date of Service: 06/21/25 Procedure(s): US renal BI Accession Number(s): [id number] cc: Spencer Stanley MD; Favian Nichols MD CLINICAL HISTORY: I10 - Essential (primary) hypertension Renal duplex ultrasound Comparison: None provided Technique: Real time duplex ultrasound imaging was performed by the seaman officer. Multiple cash application representative static images were saved for review. [...] 06/21/25 1248 DD/ 1248 TD/TT: 06/21/25 1248 Teacher Physically Impaired: [facility] [address] [place] [address] [place] [address] Ultrasound Report Signed Patient: Maday Arboleda MR#: [id number] : 1950 Acct:[id number] Age/Sex: 74 / F ADM Date: 06/21/25 Loc: .[facility] Attending Dr: Favian Nichols MD Ordering Physician: Favian Nichols MD Date of Service: 06/21/25 Procedure(s): US primo Andrews Accession Number(s): [id number] cc: Spencer Stanley MD; Favian Nichols MD CLINICAL HISTORY: I1 0 - Essential (primary) hypertension Renal duplex ultrasound Comparison: None provided Technique: Real time duplex ultrasound imaging was performed by the seaman officer. Multipl e cash application representative static images were saved for review. [...] 06/21/25 1248 DD/ 1248 TD/TT: 06/21/25 1248 Teacher Physically Impaired: Electrolytes Reviewed date:07/26/2025 05:56:50 PM Interpretation: Performing Lab:[facility], [address] [place] [phone] Notes/Report: Sodium 132 135-145 mmol/L Potassium 4.6 3.3-5.1 mmol/L Chloride 101 96-108 mmol/L Carbon Dioxide 27 22-29 mmol/L Anion Gap 9 12-20 Blood Urea Nitrogen Reviewed date:07/26/2025 05:55:48 PM Interpretation: Performing Lab:[facility], [address] [place] [phone] Notes/Report: Blood Urea Nitrogen 16 9-16 mg/dL Creatinine Reviewed date:07/26/2025 05:55:31 PM Interpretation: Performing Lab:[address] [address] Notes/Report: Creatinine 0.69 0.5-1.4 mg/dL Estimated Glomerular Filt Rate > 60 Chronic Kidney Disease: Estimated GFR < 60 mL/min/1.73m2 Severe Kidney Disease: Estimated GFR < 15 mL/min/1.73m2 Reason For Referral Reason hyonatremia Essentia l hypertension Diagnosis 1 Hyponatremia (E87.1) Diagnosis 2 Essential hypertensi on (I10) Referral Organization Spencer Stanley MD Referring Provider First Name Spencer Referring Provider Last Name Jaden Referring Provider Speciality Internal M edicine Referred Provider FAVIAN NICHOLS Referred Provider Specialty Nephrology General Notes Maria Del Carmen Borrego 11:56:39 AM EDT > info faxed , Maria Del Carmen Borrego 09/12/2024 01:08:49 PM EST > appt is at their [facility] office [address] [facility] [address] Nihcols, patient is aware of appt Referral Priority [...] Omeprazole 20 MG TAKE 1 CAPSULE BY [facility] EVERY DAY 30 MINUTES BEFORE BREAKFAST for 90 Not-Taki ng Finacea 15 % 1 application Bulk Sealer ally ONCE A DAY IN THE EVENING [...] Problem Status W/U Status Risk Notes Problem 72431253 Age-related osteoporosis without current pathological fracture (M81.0) Active confirmed Problem 853517933 Acute diverticulitis (K57.92) Active confirmed Problem 590275029 Reflux esophagit is (K21.00) Active confirmed Problem Vitamin D deficiency (37468617) Vitamin D deficiency (E55.9) Active confirmed Problem 910383119 Diverticulitis (K57.92) Active confirmed Problem Chronic frontal sinusitis (43499864) Chronic frontal sinusitis (J32.1) Active confirmed Problem 4514673 Diverticulitis o f large intestine without perforation or abscess without bleeding (K57.32) Active confirmed Problem 768498921 Other specified menopausal and perimenopausal disorders (N95.8) Active confirmed Problem 257708305 Lumbar disc disease (M51.9) Active confirmed Problem 471146398 Elevated LFTs (R79.89) Active confirmed Problem 271490381 Tubular adenoma of colon (D12.6) Active confirmed Problem 83561131 Essential hypertension (I10) Active confirmed Problem Osteoporosis (88672458) Osteoporosis (M81.0) Active confirmed Problem Disorder of female genital organs (459380706) Acute pelvic pain, female (N94.9) Active confirmed Problem 31826997 Oropharyngeal dysphagia (R13.12) Active confirmed Problem 15903170 Peptic ulcer disease (K27.9) Active confirmed Problem 72770533 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 confirmed Problem 515574126 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) Active confirmed Problem Macrocytosis - no anemia (353347108) Macrocytosis without anemia (D75.89) Active confirmed Vital Signs Heart Rate 60 /min 12/13/2024 weight is down 4 pounds since 11-14-24 Blood pressure diastolic 86 mm Hg 04/13/2025 Height 64 in 04/13/2025 Blood pressure systolic 172 mm Hg 04/13/2025 Weight 138 lbs 04/13/2025 BMI 23.69 kg/m2 04/13/2025 Encounters Encounter Location Date Provider Diagnosis Spencer Stanley MD [address] [place] [id number] 11/25/2024 Spencer Stanley Essential hypertensi on I10 Spencer Stanley MD [address] [place] [id number] 01/05/2025 Spencer Stanley Essential hypertensi on I10 ; Vitamin D deficiency E55.9 and Elevated LFTs R79.89 Spencer Stanley MD [address] [place] [id number] 02/23/2025 Spencer Stanley Diverticulitis K57.9 2 ; Rash R21 and Essential hypertension I10 Spencer Stanley MD [address] [place] [id number] 08/19/2024 Spencer Stanley Acute diverticulitis K57.92 Spencer Stanley MD [address] [place] [id number] 09/01/2024 Spencer Stanley Hyponatremia E87.1 Spencer Stanley MD [address] [facility] [address] [place] [id number] 09/02/2024 Spencer Stanley Essential hypertensi on I10 and Hyponatremia E87.1 Spencer Stanley MD [address] [place] [id number] 09/08/2024 Spencer Bombardier Essential hypertensi on I10 and Hyponatremia E87.1 Spencer Stanley MD [address] [place] [address] [id number] 09/09/2024 Spencer Bombardier Essential hypertensi on I10 and Hyponatremia E87.1 Spencer Stanley MD [address] [place] [address] [id number] 09/15/2024 Spencer Bombardier Essential hypertensi on I10 and Hyponatremia E87.1 Spencer Stanley MD [address] [place] [id number] 09/22/2024 Spencer Bombardier Essential hypertensi on I10 and Hyponatremia E87.1 Spencer Stanley MD [address] [place] [address] [id number] 10/13/2024 Spencer Bombardier Essential hypertensi on I10 and Hyponatremia E87.1 Spencer Stanley MD [address] [place] [id number] 11/14/2024 Spencer Conneller Viral URI J06.9 Spencer Stanley MD [address] [place] [id number] 12/13/2024 Spencer Bombardier Essential hypertensi on I10 and Abdominal wall pain R10.9 Spencer Stanley MD [address] [place] [id number] 01/12/2025 Spencer Bombardier Essential hypertensi on I10 ; Macrocytosis without anemia D75.89 ; Elevated LFTs R79.89 ; Vitamin D deficiency E55.9 ; Colon cancer screening Z12.11 and Depression screening Z13.31 Spencer Stanley MD [address] [place] [id number] 04/13/2025 Spencer Bombardier Essential hypertensi on I10 and Bakers cyst, right M71.21 Spencer Stanley MD [address] [place] [id number] 09/05/2024 Spencer Stanley MD [address] [place] [id number] 01/09/2025 Spencer Stanley MD [address] [place], [place] [id number] 01/20/2025 Spencer Stanley MD [address] [place], [place] [id number] 02/14/2025 Spencer Stanlye Assessments Encounter Date Diagnosis (ICD Code) Assessment [...] went away so is not an allergy 08/19/2024 Acute diverticulitis (ICD-10 - K57.92) patient [...] started. restart the valsartan/ order faxed to [facility], patient verbalized understanding of directions [...] I10) doing much better/ going to see bulk driver 09/22/2024 Hyponatremia (ICD-10 - E87.1) he has [...] - M71.21) THE ORDER WAS FAXED TO [facility] FOR SCHEDULING 01/05/2025 Vitamin D deficiency (ICD-10 - E55.9) 02/23/2025 Essential hypertension (ICD-10 - I10) having side effects with every medicine that she takes and is making adjustments of her own and is difficult to get her bp controlled. to see test driller again 01/12/2025 Elevated LFTs (ICD-10 - R79.89) stable, [...] Provider Name:Spencer Mccullough ier, 01/08/2026 07:30:00 AM, [address] [place] [address], [address] [place] [address], [phone], Provider Name:Spencer Mccullough ier, 01/15/2026 09:30:00 AM, [address] [place] [address], [address], [place], [place], [phone], Insurance Providers Payer Name Payer Address Payer Phone Subscriber Number Group Number Insured Name Patient Relationship to Insured Coverage Start Date Coverage End Date [employer] [address] [place] [address] [id number] Maday Arboleda Self - patient is the insured [employer] [place] [address] [place] [phone] [id number] Maday Arboleda Self - patient is the insured Medical (General) History Medical History History ICD Code can tolerate doxycycline without difficu lty Refuses flu [id number] colonoscopy 04/2009 - adenoma due in 5 years for upper and lower; colonoscopy and endo done 02/01/[address] Willis (repeat 01/2020) hysterectomy (has one ovary); no paps on ly pelvic exam Tinnitus of left ear colonoscopy done 04/29, due in 5 years
[2025-08-09 12:10] LABS: Anion Gap 10 (12-20); Blood Urea Nitrogen 17 mg/dL (9-16); Calcium 9.4 mg/dL (8.4-10.2); Carbon Dioxide 27 mmol/L (22-29); Chloride 102 mmol/L (96-108); Estimated Glomerular Filt Rate > 60; Potassium 4.4 mmol/L (3.3-5.1); Sodium 135 mmol/L (135-145)
[2025-08-14 11:24] LABS: Metanephrine, Free 60 pg/mL (<=57); Normetanephrines, Free 110 pg/mL (<=148); Total Metanephrine, Free 170 pg/mL (<=205)
[2025-08-21 12:58] LABS: Plasma Renin Activity 13.26 ng/mL/h (0.25-5.82)
== END 2025-08-09 10:12 | disposition home or self-care (01) ==
LOC: HO.LAB 10:11
PROVIDERS: Visit Provider Internal Medicine Nephrology
DX: I10 Essential (primary) hypertension (principal); E87.1 Hypo-osmolality and hyponatremia
CPT/HCPCS: 36415; 80051; 82088; 82310; 82533; 82565; 82784; 83835; 84443; 84520; 86334

== ENCOUNTER 2025-08-23 11:47 | Outpatient (AMB) | payer MEDICARE, SELFPAY ==
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
--- OUTSIDE RECORDS SUMMARY | 2025-01-12 05:30 | XMS_ITS ---
Author Organization Spencer Stanley MD Address [address] [place] [phone] Care Team Providers Care Practicing Md Anesthesiologist Name Role Phone Spencer Stanley Primary Care Provider [phone] Allergies Allergen (clinical drug ingredient) Drug/Non Drug [...] t Reviewed date:01/12/2025 11:52:13 AM Interpretation: Performing Lab:[facility], [address] [place] [phone] Notes/Report: Urine, Clean Catch Color Urine Yellow Appearance Urine Clear PH 6.5 5.0-9.0 Glucose Urine UA Negative Negative mg/dL Urine Blood Negative Negative Specific [place] - Urine 1.010 1.005-1.025 Urine Protein Negative [...] 20 MG TAKE 1 CAPSULE BY MO [facility] EVERY DAY 30 MINUTES BEFORE BREAKFAST [...] day Active Finacea 15 % 1 application Batching Operator ally ONCE A DAY IN THE EVENING [...] Risk Notes Problem Macrocytosis - no anemia (632955050) Macrocytosis without anemia (D75.89) Active confirmed Vital Signs Blood pressure systolic 144 mm Hg 01/13/20 25 Blood pressure diastolic 72 mm Hg 025 Height 64 in 01/12/2025 Weight 141 lbs 01/12/2025 BMI 24.2 kg/m2 01/12/2025 Encounters Encounter Location Date Provider Diagnosis Spencer Stanley MD [address] [place] [address] [place] [phone] 01/12/2025 Spencer Stanley Essential hypertension I10 ; [...] AM, [address], [address], [place], [phone], Provider Name:Spencer Mccullough marcosr, 01/15/2026 09:30:00 AM, [address], [address], [place], [phone], Progress Notes * Maday ARBOLEDA MDOB:[birth year] (74 yo F)Acc No.[id number]:01/12/2025 Patient: Maday DESAI Provider: Neris Stanley MD :1950 A ge:74 Y S ex:Female Date:01/12/2025 Address:[address] [place], [place] [phone] Subjective: * Chief Complaints: * C OMP [...] Direct 0.2 0.0-0.5 - mg/dL L ab:Comprehensive [place]. Panel Fast (Order Date 01/05/2025) (Collection Date [...] guaiac negative.? FEMALE GENITOURINARY: d one by waste transportation technician. EXTREMITIES: n o clubbing, cyanosis, or edema. [...] MD Date: 0 01/12/2025 Generated for Kwaku hernández/Jameson/Yousuf on: 1 03:01 PM EDT History and Physical Notes * [...] stool guaiac negative FEMALE GENITOURINARY: done by waste transportation technician ORAL CAVITY: mucosa moist
--- OUTSIDE RECORDS SUMMARY | 2025-01-20 04:34 | XMS_ITS ---
Author Organization Spencer Stanley MD Address [address] [place] [phone] Care Team Providers Care Solderer Assembly Repair Name Role Phone Spencer Stanley Primary Care Provider REASON FOR VISIT US ABD orders Encounters Encounter Location Date Provider Diagnosis Spencer Stanley MD 10 [facility] [address] [place] [phone] 01/20/2025 Spencer Stanley Plan Of Treatment Next Appt Details Provider Name:Spencer correa, 01/08/2026 07:30:00 AM, [address] [place] [address], [address], [phone], Provider Name:Spencer correa, 01/15/2026 09:30:00 AM, [address] [place] [address], [address], [phone], Progress Notes * Maday ARBOLEDA MDOB:[birth year] (74 yo F)Acc No.[id number]:01/20/2025 Patient: Ayan GALEXUS Maday Mario :1950 A ge:74 Y S ex:Female Address:[address] [place] [address], [place] [address] * true * Date: Generated for Kwaku hernández/Jameson/eTransmitting on: 03:00 PM EDT
--- OUTSIDE RECORDS SUMMARY | 2025-02-23 10:15 | XMS_ITS ---
Author Organization Spencer Stanley MD Address [address] [place] [phone] Care Team Providers Care Field Merchandiser Name Role Phone Spencer Stanley Primary Care Provider [phone] Allergies Allergen (clinical drug ingredient) Drug/Non Drug Allergy documented on EMR Reaction Allergy Type Onset Date Status epinephrine (uncoded) heart palpitations Allergy Active tetracycline tetracycline (uncoded) rash Allergy Active REASON FOR VISIT BP Medications Medication SIG (Take, Route, Frequency, Duration) Notes Start Date End Date Status dilTIAZem HCl 60 MG as directed Orally Active Finacea 15 % 1 application Wallcovering Texturer ally ONCE A DAY IN THE EVENING [...] Omeprazole 20 MG TAKE 1 CAPSULE BY [facility] EVERY DAY 30 MINUTES BEFORE BREAKFAST [...] Location Date Provider Diagnosis Spencer Stanley MD [address] [place] [address] Drive [address] [place], [place] [phone] 02/23/2025 Spencer Stanley Diverticulitis K57.9 2 ; [...] to get her bp controlled. to see cnc lathe machine operator again Plan Of Treatment Medication [...] to get her bp controlled. to see cnc lathe machine operator again Next Appt Details Provider Name:Spencer correa, 01/08/2026 07:30:00 AM, [address] [place] [address], [address], [place], [place], [phone], Provider Name:Spencer correa, 01/15/2026 09:30:00 AM, [address] [place] [address], [address], [place], [place], [phone], Progress Notes * Maday ARBOLEDA MDOB:[birth year] (75 yo F)Acc No.[id number]:02/23/2025 Progress Notes Patient: Maday DESAI Provider: Neris Stanley MD :1950 A ge:74 Y S ex:Female Date:02/23/2025 Address:[address] [place], [place] [phone] Subjective: * Chief Complaints: * 1 . [...] an tolerate doxycycline without difficulty, Refuses flu [id number], colonoscopy 04/2009 - adenoma due in 5 [...] to get her bp controlled. to see cnc lathe machine operator again * * The named appointment provid er may or may not be the originator of this progress note, and it is not deemed complete until electronically signed by the appointment provider. Sign off status: Pending * Provider: Neris Stanley MD Date: 0 02/23/2025 Generated for Kwaku hernández/Jameson/Marilinitting on: 1 03:02 PM EDT History and Physical Notes * [...]
--- OUTSIDE RECORDS SUMMARY | 2025-04-13 06:15 | XMS_ITS ---
Author Organization Spencer Stanley MD Address [address] [place] [phone] Care Team Providers Care Rate Manager Name Role Phone Spencer Stanley Primary [...] Omeprazole 20 MG TAKE 1 CAPSULE BY [facility] EVERY DAY 30 MINUTES BEFORE BREAKFAST for 90 Not-Taki ng Finacea 15 % 1 application Gear Shaper Set Up Operator ally ONCE A DAY IN THE [...] Location Date Provider Diagnosis Spencer Stanley MD [address] [place] [address] Drive [address] [place] [phone] 04/13/2025 Spencer Stanley Essential hypertension I10 and Bakers cyst, right M71.21 Assessments Encounter Date Diagnosis (ICD Code) Assessment Notes Treatment Notes Treatment Clinical Notes Section Notes 04/13/2025 Essential hypertension (ICD-10 - I10) has just had a change in her bp meds, will continue current regiment 04/13/2025 Bakers cyst, right (ICD-10 - M71.21) THE ORDER WAS FAXED TO [facility] FOR SCHEDULING Plan Of Treatment Medication [...] cyst, right THE ORDER WAS FAXED TO [facility] FOR SCHEDULING Pending Test Test Name Order Date US LEG RT VENOUS DOPPLER 04/13/2025 Next Appt Details Provider Name:Spencer correa, 01/08/2026 07:30:00 AM, [address] [place] [address], Suite [facility], [place], [place], [phone], Provider Name:Spencer correa, 01/15/2026 09:30:00 AM, [address] [place] [address], Suite [facility], [place], [place], [phone], Progress Notes * Maday ARBOLEDA MDOB:[birth year] (74 yo F)Acc No.[id number]:04/13/2025 Progress Notes Patient: Maday DESAI Provider: Neris Stanley MD :1950 A ge:74 Y S ex:Female Date:04/13/2025 Address:[address] [place] [address] [place] [id number] Subjective: * Chief Complaints: * 3 MO [...] DOPPLER Notes: THE ORDER WAS FAXED TO [facility] FOR SCHEDULING * Procedure Codes: * * Sign off status: Completed true * Provider: Neris Stanley MD Date: 0 04/13/2025 Generated for Kwaku hernández/Jameson/eTransmitting on: 1 03:01 PM EDT History and [...]
--- NOTE | 2025-08-23 12:12 | HO.NEPHOV ---
Vital Signs 08/23/25 12:14 Height 5 ft 3 in Weight 141 lb 6 oz BMI 25.0 BP 152/74 H Blood Pressure Location Lt brachial Position Sitting Pulse 58 Pulse Source Pulse Oximeter Pulse Oximetry (%) 98 Oxygen Delivery Method Room Air Intake Visit Reasons: 2 wks f/u w/labs-Conf Plant Protection Officer Required: No Accompanied by: Spouse Allergies tetracycline (TETRACYCLINE) Allergy (Unknown, Verified 08/23/25 12:14) Rash, itchy epinephrine Allergy (Unknown, Uncoded 02/21/25 10:01) heart palpitations HPI Comments Details: Maday was seen in follow up for hypertension. She is known to hypertension for a while and has been on hydrochlorothiazide bit she had been taking regularly without much side effects. She also is known to renal calculi. Her blood pressure started getting fluctuant, more so after COVID infection. She had to come off hydrochlorothiazide given hyponatremia, which has normalized now. Subsequently she was started on valsartan and the dose of which was maximized now. She had been tolerating that without much side effects. Her blood pressure control continued to be suboptimal with intermittent resting tachycardia and chest pressure symptoms without any reason. She was started on metoprolol of the time but she developed emotional lability as well as tiredness and it was discontinued. She has been started on 2.5 mg amlodipine at that time. She has been having some headache/ foggy head which she was attributing to amlodipine. She is not known to have any underlying thyroid disorders. She has no history of renal failure, liver disease or heart failure. She denied any diagnosis of depression but gets anxious at times. She is not known to have any hyperkalemia, edema. She denies drinking excessive fluid or alcohol. She has no history of any malignancy. Diltiazem was eventually added to the regimen but she was not tolerating the higher dose. Dose was reduced recently and she felt better but still complaining about ringing in the ear and variety of symptoms intermittently . She has seen cardiology. Her dose of short acting Diltiazem was adjusted at the last visit. She still C/O unexplainable intermittent inconsistent symptoms which she tries to attribute to BP medications. She feels that some of her symptoms are due to Diltiazem. Her BP is better and her symptoms are better after cutting back on Diltiazem and when Spironolactone has been introduced. Doppler of renal arteries showed right renal artery significant stenosis greater than 60% with no apparent stenosis of left renal artery & mildly elevated resistive indices of left renal parenchyma. Last week her BP had dropped( with development of tiredness) and her spironolactone has been cut back. She had been feeling good for last month but has been having relative lower blood pressures after she takes ARB in the morning PFSH Medical History Hypertension History of kidney stones Hiatal hernia Osteoporosis GERD (gastroesophageal reflux disease) Surgical History History of blepharoplasty History of hammer toe correction Hx of hysterectomy History of esophagogastroduodenoscopy (EGD) Hx of colonoscopy Family History Mother Hypertension Kidney stone Father Cancer Social History Do you presently have visiting nurse or other home services: No Alcohol intake: never Patient Tobacco Use Status: Former Tobacco user Review of Systems Const All systems reviewed & are unremarkable except as noted in HPI and below Physical Exam Vital Signs: Last Vital Signs Pulse 58 08/23/25 12:14 BP 152/74 H 08/23/25 12:14 Pulse Ox 98 08/23/25 12:14 Oxygen Delivery Method Room Air 08/23/25 12:14 BMI result Body Mass Index 25.0 Const General: comfortable and no acute distress Orientation/consciousness: patient oriented x3 HEENT Head: Yes normocephalic Mouth: Normal oral and palatal mucosa present Eyes EOM: EOMs intact bilaterally Neck Neck: Yes supple Resp Auscultation: clear to auscultation bilaterally Cardio Jugular venous distension: no JVD Rate: regular rate GI Palpation (GI): Soft to palpation Auscultation: normal bowel sounds General: Yes no CVA tenderness Back/Spine/Pelvis Back: no CVA tenderness Skin General skin exam: no rashes or lesions noted Neuro General: patient oriented x3 and moves all extremities Extrem General: Yes no pedal edema Results Reviewed Nephrology Results: Sodium, (135-145) 135 mmol/L 08/09/25 Potassium, (3.3-5.1) 4.4 mmol/L 08/09/25 Chloride, (96-108) 102 mmol/L 08/09/25 Carbon Dioxide, (22-29) 27 mmol/L 08/09/25 BUN, (9-16) 17 mg/dL H 08/09/25 Creatinine, (0.5-1.4) 0.63 mg/dL 08/09/25 Calcium, (8.4-10.2) 9.4 mg/dL 08/09/25 Renal US 06/21/25 Assessment & Plan Assessment & Plan (1) Hypertension: Code(s): I10 - Essential (primary) hypertension Category: Medical Qualifiers: Hypertension type: primary hypertension Qualified Code(s): I10 - Essential (primary) hypertension (2) Hyponatremia: Code(s): E87.1 - Hypo-osmolality and hyponatremia Category: Medical Plan Maday has longstanding hypertension. She did not tolerate metoprolol due to development of emotional lability. She is currently on valsartan 320 mg daily which I may back off to 240 mg at next visit if her BP drops in the morning . I asked her to keep off hydrochlorothiazide for now ( H/O Hyponatremia). She has history of renal calculi. She is off fluid restriction . She has strong family history of hypertension. She denied any other vascular risk factors or active vascular disease. Doppler of her renal arteries showed right renal artery significant stenosis greater than 60% with no apparent stenosis of left renal artery & mildly elevated resistive indices of left renal parenchyma. For now, he can continue Valsartan 320 mg daily in the morning along with carvedilol 12.5 mg bid. She could continue Spironolactone 25 mg AM and 12.5 mg PM . She should continue low sodium in the diet. Labs ordered. Answered all questions. Orders: Orders Electrolytes 6 Weeks E87.1 - Hypo-osmolality and hyponatremia, I10 - Essential (primary) hypertension Blood Urea Nitrogen 6 Weeks E87.1 - Hypo-osmolality and hyponatremia, I10 - Essential (primary) hypertension Creatinine 6 Weeks E87.1 - Hypo-osmolality and hyponatremia, I10 - Essential (primary) hypertension Coding Level of Care Code Est Pt Level 4 (76614) Diagnoses Primary hypertension I10 Hypertension type: primary hypertension Hyponatremia E87.1
[2025-08-23 12:14] VITALS: BP 152/74; PULSE 58; O2SAT 98; BMI 25.0
--- OUTSIDE RECORDS SUMMARY | 2025-08-23 15:00 | XMS_ITS | Clinical Summary ---
Author Organization [facility] Address [address] [address] Phone Care Team Providers Care Electronic Maintenance Supervisor Name Role Phone Spencer Stanley MD Primary [...] 07/31/2023, 09/11/2022, Additional history exists COVID-19 VACCINE (2024- season) 2025 10/20/2024, 09/17/2023, 08/21/2022, Additional history [...] file Insurance MEDICARE PART A & B [place] [employer] MEDEX SUPPLEMENT MEDICARE PART A & B [facility] MEDEX SUPPLEMENT MEDICARE PART A & B [facility] MEDEX SUPPLEMENT MEDICARE PART A & B [employer] MEDEX SUPPLEMENT MEDICARE PART A & B [employer] MEDEX SUPPLEMENT MEDICARE PART A & B [facility] MEDEX SUPPLEMENT Care Teams Electronic Maintenance Supervisor Relationship Specialty Start Date End Date Spencer Stanley MD [address] [place] [address] [place] [address] PCP - General Internal Medicine 07/19/24 Additional Source Comments The information contained in this document represents components of the legal health record. It is not the complete legal health record.[facility]
--- OUTSIDE RECORDS SUMMARY | 2025-08-23 15:01 | XMS_ITS | Patient Health Record ---
Author Organization [facility] Address [address] [facility] [place] [address] Care Team Providers Care English Tutor Name Role Phone Spencer Stanley MD Primary Care Provider Sarabjit Caballero Unavailable [phone] Perla Diop Unavailable [phone] Allergies Allergen (clinical drug ingredient) Drug/Non Drug [...] Notes Start Date End Date Status Vitamin K2 takes both Not-Taki ng Carvedilol 25 MG 1 tablet with food Orally daily; Duration: 90 days Active Probiotic Unknown Valsartan 320 MG 1 tablet Orally Once a day Active Vitamin D 1000 UNIT Orally Not-Taking dilTIAZem HCl ER 60mg Not -Taking Spironolactone 25 MG Oral; Duration: 90 Days Active Valsartan 160 MG 1 tablet Orally Once a day takes both Not-Taking Valsartan-hydroCHLOROthiaz can 320-25 MG 1 tablet Orally Once a day; Duration: 30 days Not-Taking K2 Plus D3 Not-Takin g hydroCHLOROthiazide 12.5 MG Orally Not-Taking Vitamin D3 Not-Takin g Melatonin Not-Taking Immunizations Vaccine Route Administration Date Status Comme nts Influenza Unknown 07/10/2024 Administered COVID-19 Moderna Vaccine Unknown 03/19/2022 Administered 1st [...] (Standard) Question Answer Notes Tobacco use: Nonsmoker AUDIT-C (Standard) Question Answer Notes Did you have a drink containing alcohol in the p ast year? No Points 0 Interpretation Negative Problems Problem Type SNOMED Code ICD Code Onset Dates Problem Status W/U Status Risk Notes Problem Plantar wart (35769332) Plantar wart (B07.0) Active confirmed Problem Onychomycosis (654315404) Onychomycosis (B35.1) Active confirmed Vital Signs Blood pressure diastolic 78 mm Hg 08/11/2025 Height 5 ft 4 in in 08/11/2025 Blood pressure systolic 120 mm Hg 08/11/2025 Weight 137 lbs 08/11/2025 BMI 23.51 kg/m2 08/11/2025 Procedures Procedure Date Ordered Date Performed Result Body Sit e 04768-[id number] NAIL, 1-5 11/15/2024 N/A [id number] Destruction, 1-14 11/15/2024 N/A Encounters Encounter Location Date Provider Diagnosis [address] [address] 11/15/2024 Sarabjit Manriquez Pain in left toe(s) M79.675 ; Onychomycosis B35.1 ; Right foot pain M79.671 ; Plantar wart B07.0 ; Pain in right ankle and joints of right foot M25.571 ; Bursitis of intermetatarsal bursa of right foot M77.51 and Metatarsalgia, right foot M77.[address] [facility] [address] 08/11/2025 Perla Poncea Right foot pain M79. 671 and Plantar wart B07.0 [facility] [address] 11/15/2024 Sarabjit Manriquez [facility] [place] [address] [place] [address] 11/17/2024 Sarabjit Manriquez Assessments Encounter Date Diagnosis (ICD Code) Assessment Notes Treatment Notes Treatment Clinical Notes Section Notes 11/15/2024 Pain in left toe(s) (ICD-10 - M79.675) 08/11/2025 Right foot pain (ICD-10 - M79.671) 11/15/2024 Right foot pain (ICD-10 - M79.671) 11/15/2024 Onychomycosis (ICD-10 - B35.1) 08/11/2025 Plantar wart (ICD-10 - B07.0) 11/15/2024 Plantar wart (ICD-10 - B07.0) 11/15/2024 Pain in right ankle and joints of right foot (ICD-10 - M25.571) 11/15/2024 Bursitis of intermetatarsal bursa of right foot (ICD-10 - M77.51) 11/15/2024 Metatarsalgia, right foot (ICD-10 - M77.41) Plan Of Treatment Pending Test Test Name Order Date X ray : Foot, right 3V 09/25/2022 [id number] NAIL, 1-5 11/15/2024 [id number] Destruction, 1-14 11/15/2024 [id number] Plate 12/08/2017 03823- Debride <25 sq cm 12/25/2017 Insurance Providers Payer Name Payer Address Payer Phone Subscriber Number Group Number Insured Name Patient Relationship to Insured Coverage Start Date Coverage End Date Medicare National [employer]t [employer] [address] [place] [address] [id number] Maday Draper Self - patient is the insured [employer] [facility] [address] [place] [address] [id number] Maday Draper Self - patient is the insured Medical (General) History Medical History History ICD Code Diverticulosis Measles Mumps Chicken pox Osteoporosis Reflux ( GERD) Hypertension Elevated LFTs Vitamin D deficiency Hypercalciuria Tubular adenoma of colon Cataracts Surgical History Surgery Date(Month/Year) hysterectomy 1986 ilana Sheehan
--- OUTSIDE RECORDS SUMMARY | 2025-08-23 15:02 | XMS_ITS | Patient Health Record ---
Author Organization [facility] Address [address] [place] [address] Care Team Providers Care Quality Assurance/R&D Lab Technician Name Role Phone Spencer Stanley MD Primary Care Provider Dany Regan Unavailable [phone] Allergies Allergen (clinical drug ingredient) Drug/Non Drug Allergy documented on EMR Reaction Allergy Type Onset Date Status tetracycline Tetracycline HCl Unknown Drug Allergy Active lidocaine Lidocaine Unknown Drug Allergy Active Reason For Referral No Information Medications Medication SIG (Take, Route, Fr equency, Duration) Notes Start Date End Date Status dilTIAZem HCl ER 60 MG Oral; Duration: 30 Days Active Valsartan 320 MG TAKE 1 TABLET BY VICKY TH DAILY Oral; Duration: 90 Days Active Immunizations Vaccine Route Administration [...] Status Risk Notes Problem Diverticulitis of colon (696765240) Diverticulitis of large intestine without perforation or abscess without bleeding (K57.32) Active confirmed Problem Screening for malignant neoplasm of colon (172406938) Encounter for screening for malignant neoplasm of colon (Z12.11) Active confirmed Problem Gastroesophageal reflux disease without esophagitis (916867219) Gastroesophageal reflux disease without esophagitis (K21.9) Active confirmed Problem Elevated liver enzymes level (339589949) Elevated liver enzymes (R74.8) Active confirmed Problem Diverticulitis of colon (763668113) Diverticulitis of colon (K57.32) Active confirmed 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 use of non-steroidal anti-inflammatory drug (656723163895485) NSAID long-term use (Z79.1) Active confirmed Problem History of adenomatous polyp of colon (701976255) Hx of adenomatous colonic polyps (Z86.010) Active confirmed Vital Signs Blood pressure diastolic 11 mm Hg 12/06/2024 Height 63.75 in 12/06/2024 Blood pressure systolic 111 mm Hg 12/06/2024 Weight 136 lbs 12/06/2024 BMI 23.53 kg/m2 12/06/2024 Encounters Encounter Location Date Provider Diagnosis [facility] [address] [place] [address] 12/06/2024 Dany Willis Diverticulitis of co laya K57.32 Assessments Encounter Date Diagnosis (ICD Code) Assessment Notes Treatment Notes Treatment Clinical Notes Section Notes 12/06/2024 Diverticulitis of colon (ICD-10 - K57.32) Repeat colonoscopy in 04/2026 Go on a liquid diet for 1 or 2 days if the diverticulitis flares up, but definitely go on antibiotics if not getting better Need [facility] CT scan in 2023 Overall, [...] Date MEDICARE OF [place] [address] [facility] [phone] [id number] ROBLESFANG GarcíaIA Self - patient is the insured [employer] ATT[employer] CLAIMS [address] [place] [address] [id number] ROBLESFANG GarcíaIA Self - patient is the insured Medical (General) History Medical History History ICD Code 2003 and 05/07/2009 Colonoscopy--negative for polyps Tubular adenoma--removed in 2000 Internal hemorrhoids Diverticulosis-mild divertic ulitis of the distal descending/proximal sigmoid colon described on a CT scan in 12/2012, 11/2016, and 09/2018 GERD--EGD in 2004-small HH--no esophagit is, no Arevalo's Hiatal hernia Denies [place],DM,CVA,Lung disease,renal dise ase Osteoporosis Negative abdominal ultrasound in 01/2015--colonoscopy with sma ll tubular adenomas removed, diverticulosis, and internal hemorrhoids 01/2015-EGD with a small hiat al hernia, but no esophagitis nor Arevalo's esophagus Hx of kidney stones Hypertension Colonoscopy 04/2021 with a single tubular adenoma Diverticulitis 2023--had a CT at [facility] Surgical History Surgery Date(Month/Year) Hammer toe Hysterectomy w/removal of 1 ovary
== END 2025-08-23 12:37 | disposition home or self-care (01) ==
LOC: HO.HKA 11:48
PROVIDERS: PCP Internal Medicine; Visit Provider Internal Medicine Nephrology
DX: I10 Essential (primary) hypertension (principal); E87.1 Hypo-osmolality and hyponatremia
CPT/HCPCS: 99214

== ENCOUNTER → 2025-08-23 11:47 | Outpatient (BNVA) | payer MEDICARE, SELFPAY | PROVIDERS: PCP Internal Medicine; Visit Provider Internal Medicine Nephrology | DX: I10 Essential (primary) hypertension (principal); E87.1 Hypo-osmolality and hyponatremia | CPT/HCPCS: 99212 ==

== ENCOUNTER 2025-08-24 09:33 | Outpatient (AMB) | payer MEDICARE, SELFPAY ==
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
--- OUTSIDE RECORDS SUMMARY | 2025-01-12 05:30 | XMS_ITS ---
Author Organization Spencer Stanley MD Address [address] [place] [phone] Care Team Providers Care Medical Assistant Prn Name Role Phone Spencer Stanley Primary Care [...] t Reviewed date:01/12/2025 11:52:13 AM Interpretation: Performing Lab:[facility], [address] [place] [phone] Notes/Report: Urine, Clean Catch Color Urine Yellow Appearance Urine Clear PH 6.5 5.0-9.0 Glucose Urine UA Negative Negative mg/dL Urine Blood Negative Negative Specific [place] - Urine 1.010 1.005-1.025 Urine Protein Negative [...] 20 MG TAKE 1 CAPSULE BY MO [facility] EVERY DAY 30 MINUTES BEFORE BREAKFAST [...] day Active Finacea 15 % 1 application Investment Associate ally ONCE A DAY IN THE EVENING [...] Risk Notes Problem Macrocytosis - no anemia (197255484) Macrocytosis without anemia (D75.89) Active confirmed Vital Signs Blood pressure systolic 144 mm Hg 01/13/20 25 Blood pressure diastolic 72 mm Hg 025 Height 64 in 01/12/2025 Weight 141 lbs 01/12/2025 BMI 24.2 kg/m2 01/12/2025 Encounters Encounter Location Date Provider Diagnosis Spencer Stanley MD [address] [place] [address] [place] [phone] 01/12/2025 Spencer Stanley Essential hypertension I10 ; [...] AM, [address], [address], [place], [phone], Provider Name:Spencer Mccullough marcosr, 01/15/2026 09:30:00 AM, [address], [address], [place], [phone], Progress Notes * Maday ARBOLEDA MDOB:[birth year] (74 yo F)Acc No.[id number]:01/12/2025 Patient: Maday DESAI Provider: Neris Stanley MD :1950 A ge:74 Y S ex:Female Date:01/12/2025 Address:[address] [place], [place] [phone] Subjective: * Chief Complaints: * C OMP [...] Direct 0.2 0.0-0.5 - mg/dL L ab:Comprehensive [place]. Panel Fast (Order Date 01/05/2025) (Collection Date [...] guaiac negative.? FEMALE GENITOURINARY: d one by gaming host. EXTREMITIES: n o clubbing, cyanosis, or edema. [...] 0 01/12/2025 Generated for Kwaku hernández/Jameson/Marilinitting on: 1 10:57 AM EDT History and Physical Notes * [...] stool guaiac negative FEMALE GENITOURINARY: done by gaming host ORAL CAVITY: mucosa moist
--- OUTSIDE RECORDS SUMMARY | 2025-01-20 04:34 | XMS_ITS ---
Author Organization Spencer Stanley MD Address [address] [place] [phone] Care Team Providers Care Turf Farmer Name Role Phone Spencer Stanley Primary Care Provider REASON FOR VISIT US ABD orders Encounters Encounter Location Date Provider Diagnosis Spencer Stanley MD 10 [facility] [address] [place] [phone] 01/20/2025 Spencer Stanley Plan Of Treatment Next Appt Details Provider Name:Spencer correa, 01/08/2026 07:30:00 AM, [address] [place] [address], [address], [phone], Provider Name:Spencer correa, 01/15/2026 09:30:00 AM, [address] [place] [address], [address], [phone], Progress Notes * Maday ARBOLEDA MDOB:[birth year] (74 yo F)Acc No.[id number]:01/20/2025 Patient: Ayan GALEXUS Maday Mario :1950 A ge:74 Y S ex:Female Address:[address] [place] [address], [place] [address] * true * Date: Generated for Kwaku hernández/Jameson/eTransmitting on: 10:57 AM EDT
--- OUTSIDE RECORDS SUMMARY | 2025-02-14 11:03 | XMS_ITS ---
Author Organization Spencer Stanley MD Address [address] [place] [phone] Care Team Providers Care Collaborative Teacher Name Role Phone Spencer Stanley Primary Care Provider REASON FOR VISIT several issues Encounters Encounter Location Date Provider Diagnosis Spencer Stanley MD [address] [place] [address] [place] [phone] 02/14/2025 Spencer Stanley Plan Of Treatment Next Appt Details Provider Name:Spencer correa, 01/08/2026 07:30:00 AM, [address] [place] [address], [address], [phone], Provider Name:Spencer correa, 01/15/2026 09:30:00 AM, [address] [place] [address], [address], [phone], Progress Notes * Maday ARBOLEDA MDOB:[birth year] (74 yo F)Acc No.[id number]:02/14/2025 Patient: Ayan GAMELINARaquel Maday Mario :1950 A ge:74 Y S ex:Female Address:[address] [place] [address], [place] [address] * true * Date: Generated for Kwaku hernández/Jameson/eTransmitting on: 10:57 AM EDT
--- OUTSIDE RECORDS SUMMARY | 2025-02-23 10:15 | XMS_ITS ---
Author Organization Spencer Stanley MD Address [address] [place] [phone] Care Team Providers Care Refurbish Technician Name Role Phone Spencer Stanley Primary Care Provider [phone] Allergies Allergen (clinical drug ingredient) Drug/Non Drug Allergy documented on EMR Reaction Allergy Type Onset Date Status epinephrine (uncoded) heart palpitations Allergy Active tetracycline tetracycline (uncoded) rash Allergy Active REASON FOR VISIT BP Medications Medication SIG (Take, Route, Frequency, Duration) Notes Start Date End Date Status dilTIAZem HCl 60 MG as directed Orally Active Finacea 15 % 1 application Motor Checker ally ONCE A DAY IN THE EVENING [...] Omeprazole 20 MG TAKE [address] CAPSULE [address] [facility] EVERY DAY 30 MINUTES BEFORE BREAKFAST for 90 Not-Taki ng Valtrex 500 MG 1 tablet Orally ever y 12 hrs for 10 day(s) Not-Taking Vital Signs Blood pressure systolic 178 mm Hg 02/24/20 25 Blood pressure diastolic 80 mm Hg 025 Height 64 in 02/23/2025 Weight 138 lbs 02/23/2025 BMI 23.69 kg/m2 02/23/2025 weight is down 3 pounds [facility] e 01-12-25 Encounters Encounter Location Date Provider Diagnosis Spencer Stanley MD [address] [place] [address] Drive [address] [place], [place] [phone] 02/23/2025 Spencer Stanley Diverticulitis K57.9 2 ; [...] to get her bp controlled. to see refrigerator repair technician again Plan Of Treatment Medication Medication Name [...] to get her bp controlled. to see refrigerator repair technician again Next Appt Details Provider Name:Spencer correa, 01/08/2026 07:30:00 AM, [address] [place] [address], [address], [place], [place], [phone], Provider Name:Spencer correa, 01/15/2026 09:30:00 AM, [address] [place] [address], [address], [place], [place], [phone], Progress Notes * Maday ARBOLEDA MDOB:[birth year] (75 yo F)Acc No.[id number]:02/23/2025 Progress Notes Patient: Maday DESAI Provider: Neris Stanley MD :1950 A ge:74 Y S ex:Female Date:02/23/2025 Address:[address] [place], [place] [phone] Subjective: * Chief Complaints: * 1 . [...] an tolerate doxycycline without difficulty, Refuses flu dlix56-80-63, colonoscopy 04/2009 - adenoma due in 5 [...] to get her bp controlled. to see refrigerator repair technician again * * The named appointment provid er may or may not be the originator of this progress note, and it is not deemed complete until electronically signed by the appointment provider. Sign off status: Pending * Provider: Neris Stanley MD Date: 0 02/23/2025 Generated for Kwaku hernández/Jameson/Chrissmitting on: 1 10:58 AM EDT History and Physical Notes * [...]
--- OUTSIDE RECORDS SUMMARY | 2025-04-13 06:15 | XMS_ITS ---
Author Organization Spencer Stanley MD Address [address] [place] [phone] Care Team Providers Care Chief Knowledge Officer Name Role Phone Spencer Stanley Primary [...] Not-Taki ng Finacea 15 % 1 application Abap Developer ally ONCE A DAY IN THE EVENING [...] Location Date Provider Diagnosis Spencer Stanley MD [address] [place] [address] Drive [address] [place] [phone] 04/13/2025 Spencer Stanley Essential hypertension I10 and Bakers cyst, right M71.21 Assessments Encounter Date Diagnosis (ICD Code) Assessment Notes Treatment Notes Treatment Clinical Notes Section Notes 04/13/2025 Essential hypertension (ICD-10 - I10) has just had a change in her bp meds, will continue current regiment 04/13/2025 Bakers cyst, right (ICD-10 - M71.21) THE ORDER WAS FAXED TO [facility] CENTRALIZED FOR SCHEDULING Plan Of Treatment Medication [...] cyst, right THE ORDER WAS FAXED TO [facility] CENTRALIZED FOR SCHEDULING Pending Test Test Name Order Date US LEG RT VENOUS DOPPLER 04/13/2025 Next Appt Details Provider Name:Spencer correa, 01/08/2026 07:30:00 AM, [address] [place] [address], Suite [facility], [place], [place], [phone], Provider Name:Spencer correa, 01/15/2026 09:30:00 AM, [address] [place] [address], Suite [facility], [place], [place], [phone], Progress Notes * Maday ARBOLEDA MDOB:[birth year] (74 yo F)Acc No.[id number]:04/13/2025 Progress Notes Patient: Maday DESAI Provider: Neris Stanley MD :1950 A ge:74 Y S ex:Female Date:04/13/2025 Address:[address] [place] [address] Jose Fish [id number] Subjective: * Chief Complaints: * 3 MO [...] DOPPLER Notes: THE ORDER WAS FAXED TO [facility]ENTRALIZED FOR SCHEDULING * Procedure Codes: * * Sign off status: Completed true * Provider: Neris Stanley MD Date: 0 04/13/2025 Generated for Kwaku hernández/Jameson/eTransmitting on: 1 10:57 AM EDT History and [...]
[2025-08-24 09:49] VITALS: BP 140/72; PULSE 50; BMI 25.0
--- NOTE | 2025-08-24 09:49 | MHC.OFFVIS ---
Vital Signs 08/24/25 09:49 Height 5 ft 3 in Weight 141 lb 1.533 oz BMI 25.0 BP 140/72 H Blood Pressure Location Lt brachial Position Sitting Pulse 50 Pulse Source Pulse Oximeter Intake Visit Reasons: 6 mth f/up Grain Combine Driver Required: No Allergies tetracycline (TETRACYCLINE) Allergy (Unknown, Verified 08/24/25 09:51) Rash, itchy epinephrine Allergy (Unknown, Uncoded 08/24/25 09:51) heart palpitations Medication List - Last Reconciled 08/24/25 by Junior Ortez MD acetaminophen ER (Tylenol Arthritis Pain) 650 mg PO Q8H PRN carvedilol 12.5 mg PO BID 90 days spironolactone 25 mg PO DAILY spironolactone 12.5 mg PO DAILY valsartan 320 mg PO QAM HPI Comments Details: Maday returns for follow-up regarding hypertension. She had COVID and after that, she has not felt good. Has had hypertension in the past but apparently this got significantly worse after that COVID episode. She has tried numerous medications but aside various side effects and currently includes valsartan, carvedilol and spironolactone. She has no clear-cut angina or anything definitively cardiac but various other concerns like head pressure, fatigue, loss of appetite, hand tingling extra. She thinks they are all medication related but highly doubt that is the case. As regard to other meds, it seems not on hydrochlorothiazide due to renal calculi. Metoprolol gave her emotional lability. With amlodipine, headache/fogginess. Since last seen, she states she is actually feeling much better. In fact most of her 'side effects' concern or resolved and she is able tolerate the current regimen. Home blood pressures are apparently lower than here. [facility] Medical History Hypertension History of kidney stones Hiatal hernia Osteoporosis GERD (gastroesophageal reflux disease) Surgical History History of blepharoplasty History of hammer toe correction Hx of hysterectomy History of esophagogastroduodenoscopy (EGD) Hx of colonoscopy Family History Mother Hypertension Kidney stone Father Cancer Social History Do you presently have visiting nurse or other home services: No Alcohol intake: never Patient Tobacco Use Status: Former Tobacco user Review of Systems ENT Reports dizziness Card Denies chest pain, Denies chest pain at rest, Denies chest pain with activity, Denies rapid heart rate, Denies pedal edema, Denies edema, Denies leg edema, Denies lightheadedness, Denies palpitations, Denies dyspnea, Denies dyspnea on exertion and Denies orthopnea Resp Denies cough, Denies dyspnea and Denies dyspnea on exertion GI Denies hematochezia and Denies change in stool character Musc Denies abnormal gait, Reports limited range of motion, Reports muscle cramps, Denies muscle weakness, Denies numbness, Denies radiating pain into limb, Denies stiffness and Denies tingling Neuro Denies abnormal gait, Reports dizziness, Denies numbness and Denies tingling Endo Denies palpitations Physical Exam Vital Signs: Last Vital Signs Pulse 50 08/24/25 09:49 BP 140/72 H 08/24/25 09:49 BMI result Body Mass Index 25.0 Const General: comfortable and no acute distress Orientation/consciousness: patient oriented x3 HEENT Other: Unremarkable Head: Yes normal to inspection Neck Neck: Yes normal visual inspection Chest Chest palpation & inspection: normal inspection of the chest Resp Auscultation: clear to auscultation bilaterally Cardio Palpation: normal PMI Heart sounds: S1 normal heart sound present, S2 normal heart sound present, no gallops, no murmurs and no rubs GI Palpation (GI): Soft to palpation Back/Spine/Pelvis Other: unremarkable Skin General skin exam: no rashes or lesions noted Neuro General: patient oriented x3 Extrem General: Yes normal to inspection Psych Mental Status: mental status grossly normal Assessment & Plan Assessment & Plan (1) Hypertension: Code(s): I10 - Essential (primary) hypertension Category: Medical Qualifiers: Hypertension type: primary hypertension Qualified Code(s): I10 - Essential (primary) hypertension Plan Cardiac studies reviewed. In the EKG, sinus rhythm, sinus arrhythmia, possible left atrial enlargement and possible old septal infarct but more likely from body habitus. Echocardiogram with LVEF of 60-65%. Mild diastolic dysfunction but otherwise unremarkable. Exercise stress echocardiogram unremarkable at 7 METS exercise capacity. In the Holter, underlying rhythm is sinus with an average rate of 59/Min. Rare supraventricular/ventricular ectopy. Nighttime pauses, longest 3.8 seconds. In the renal ultrasound, right internal artery with > 60% stenosis but nothing significant on the left side. Overall, difficult to control hypertension with issues with different medications but reasonably much improved. Recurrent regimen includes carvedilol, valsartan and spironolactone. No changes made from today's visit. Other option would be to consider renal denervation therapy and we did briefly discuss about it today. She would like to hold off for now. Total time spent including review of data, counseling, documentation, coordination of care-31 minutes. Discussion Notes During the consultation, we discussed the patient's renal artery stenosis and the potential for similar conditions elsewhere in the body. We considered the use of statin therapy, but due to ongoing medication adjustments and the patient's history of side effects to most medications, we decided to defer this decision for now. The patient's hypertension management was reviewed, noting improvements with recent medication changes. Patient was informed and verbally consented to the use of an ambient scribe for clinic note documentation during this visit. Patient Instructions: - Monitor blood pressure regularly at home and report any significant changes. - Report any new or worsening symptoms, especially related to heart health. Coding Level of Care Code Est Pt Level 4 (54519) Diagnoses Primary hypertension I10 Hypertension type: primary hypertension
--- OUTSIDE RECORDS SUMMARY | 2025-08-24 10:57 | XMS_ITS | Clinical Summary ---
Author Organization [facility] Address [address] [address] Phone Care Team Providers Care Glue Line Operator Name Role Phone Spencer Stanley MD [...] file Insurance MEDICARE PART A & B [employer] [employer] MEDEX SUPPLEMENT MEDICARE PART A & B [facility] MEDEX SUPPLEMENT MEDICARE PART A & B [facility] MEDEX SUPPLEMENT MEDICARE PART A & B [employer] MED[employer] SUPPLEMENT MEDICARE PART A & B [employer] MED[employer] SUPPLEMENT MEDICARE PART A & B [facility] MEDEX SUPPLEMENT Care Teams Glue Line Operator Relationship Specialty Start Date End Date Spencer Stanley MD [address] [place] [address] [place] [address] PCP - General Internal Medicine 07/19/24 Additional Source Comments The information contained in this document represents components of the legal health record. It is not the complete legal health record.[facility]
--- OUTSIDE RECORDS SUMMARY | 2025-08-24 10:58 | XMS_ITS | Patient Health Record ---
Author Organization Spencer Stanley MD Address [address] [place] [id number] Care Team Providers Care Customs And Border Protection Inspector Name Role Phone Spencer Stanley Primary Care Provider Allergies Allergen (clinical drug ingredient) Drug/Non Drug Allergy documented on EMR Reaction Allergy Type Onset Date Status epinephrine (uncoded) heart palpitations Allergy Active tetracycline tetracycline (uncoded) rash Allergy Active Results Component Value Reference Range Notes Complete Blood Count Auto Di ff Reviewed date:01/05/2025 04:35:02 PM Interpretation: Performing Lab:[facility], [address] [place] [phone] Notes/Report: White Blood Count 5.0 4.8-10.8 X10*3/uL [...] NRBC Abs Auto 0.000 0.0-0.012 X10*3/uL Comprehensive [place]. Panel Fa st Reviewed date:01/05/2025 12:43:17 PM Interpretation: Performing Lab:[facility], [address] [place] [phone] Notes/Report: Sodium 140 135-145 mmol/L Potassium 4.1 [...] Panel Reviewed date:01/05/2025 12:43:41 PM Interpretation: Performing Lab:[address] [address] Notes/Report: Bilirubin Direct 0.2 0.0-0.5 mg/dL Lipid Panel Reviewed date:01/05/2025 12:43:26 PM Interpretation: Performing Lab:[address] [address] Notes/Report: Triglycerides 59 <150 mg/dL Desirable Triglyceride: [...] Total Reviewed date:01/05/2025 12:43:34 PM Interpretation: Performing Lab:[address] [address] Notes/Report: Vitamin D 25-OH Total 62.4 >30 [...] Sodium Reviewed date:09/01/2024 12:26:42 PM Interpretation: Performing Lab:[address] [address] Notes/Report: Sodium 137 135-145 mmol/L Occult Blood, Stool, Guaiac Reviewed date:01/12/2025 10:30:48 AM Interpretation:Negative Performing Lab: Notes/Report: Negative Occult Blood, Stool, Guaiac Neg UA ClnCatch+Micro w/rflx Cul t Reviewed date:01/12/2025 11:52:13 AM Interpretation: Performing Lab:[address] [address] Notes/Report: Urine, Clean Catch Color Urine Yellow Appearance Urine Clear PH 6.5 5.0-9.0 Glucose Urine UA Negative Negative mg/dL Urine Blood Negative Negative Specific Jasper - Urine 1.010 1.005-1.025 Urine Protein Negative Neg-Trace mg/dL Urine Ketones Negative Negative mg/dL Nitrite Urine Negative Negative Leukocyte Esterase Urine Negative Negative RBC Urine 0-2 0-2 /HPF WBC Urine 0-5 0-5 /HPF Squamous Epithelial Cell Urine 0-2 0-2 /HPF Bacteria Urine None Seen None Seen Hyaline Casts Urine 0-2 0-2 /LPF Electrolytes Reviewed date:09/22/2024 06:06:11 PM Interpretation: Performing Lab:[facility], [address] [place] [phone] Notes/Report: Sodium 137 135-145 mmol/L Potassium 4.4 3.3-5.1 mmol/L Chloride 105 96-108 mmol/L Carbon Dioxide 29 22-29 mmol/L Anion Gap 7 12-20 Uric Acid Reviewed date:09/22/2024 06:05:36 PM Interpretation: Performing Lab:[address] [address] Notes/Report: Uric Acid 2.6 2.4-5.7 mg/dL TSH reflex Free T4 Reviewed date:09/22/2024 06:05:26 PM Interpretation: Performing Lab:[facility], [address] [place] [address] Notes/Report: TSH reflex Free T4 1.71 0.32-4.0 uIU/mL Aldosterone Reviewed date:10/03/2024 12:34:25 PM Interpretation: Performing Lab:[facility], [address] [place] [phone] Notes/Report: Aldosterone TNP Renin Reviewed date:09/30/2024 04:47:30 PM Interpretation: Performing Lab:[facility], [address] [place] [phone] Notes/Report: Renin 2.86 0.25-5.82 ng/mL/h This test was developed and its analytical performance characteristics have been determined by [facility] [place] [place]. It has not been cleared or approved by the U.S. Food and Drug Administration. This assay has been validated pursuant to the CLIA regulations and is used for clinical purposes. THIS TEST WAS PERFORMED AT: [facility] [address] PAT CUMMINGS MD,PHD Aldost/Renin Reviewed date:10/03/2024 12:35:02 PM Interpretation: Performing Lab:[facility], [address] [place] [address] Notes/Report: Aldosterone 2 see note ng/dL Unable to flag abnormal result(s), please refer to reference range(s) below: Adult Reference Ranges for Aldosterone, LC/MS/MS: Upright 8:00 - 10:00 am < or = 28 ng/dL Upright 4:00 - 6:00 pm < or = 21 ng/dL Supine 8:00 - 10:00 am 3 - 16 ng/dL THIS TEST WAS PERFORMED AT: [facility] [address] PAT CUMMINGS MD,PHD Plasma Renin Activity 2.58 0.25-5.82 ng/mL/h Aldosterone/Renin Ratio 0.8 0.9-28.9 Ratio This test was developed and its analytical performance characteristics have been determined by [facility] [place] [place]. It has not been cleared or approved by the U.S. Food and Drug Administration. This assay has been validated pursuant to the CLIA regulations and is used for clinical purposes. THIS TEST WAS PERFORMED AT: [facility] [place] [address] [place] [address] PAT CUMMINGS MD,PHD Metanephrines, Plasma Reviewed date:09/29/2024 05:20:12 PM Interpretation: Performing Lab:[facility], [address] [place] [address] Notes/Report: Metanephrine, Free 47 <=57 pg/mL This test was developed and its analytical performance characteristics have been determined by [facility] [place] [place]. It has not been cleared or approved by the U.S. Food and Drug Administration. This assay has been validated pursuant to the CLIA regulations and is used for clinical purposes. Normetanephrines, Free 208 <=148 pg/mL This test was developed and its analytical performance characteristics have been determined by [facility] [place] [place]. It has not been cleared or approved by the U.S. Food and Drug Administration. This assay has been validated pursuant to the CLIA regulations and is used for clinical purposes. Total Metanephrine, Free 255 <=205 pg/mL For additional information, please refer to http://education.[employer].Airspan/faq/Me tFractFree (This link is being provided for [...] analytical performance characteristics have been determined by [facility] [place] [place]. It has not been cleared or approved by the U.S. Food and Drug Administration. This assay has been validated pursuant to the CLIA regulations and is used for clinical purposes. THIS TEST WAS PERFORMED AT: [facility] [address] [place] [address] PAT CUMMINGS MD,PHD Osmolality Urine Reviewed date:09/22/2024 03:17:39 PM Interpretation: Performing Lab:[address] [address] Notes/Report: Osmolality Urine 394 809-6467 mosm/kg Sodium Urine Random Reviewed date:09/22/2024 12:50:43 PM Interpretation: Performing Lab:[address] [address] Notes/Report: Sodium Urine Random 21.0 Immunofixation Pnl, Serum Reviewed date:09/27/2024 08:14:33 PM Interpretation: Performing Lab:[address] [address] Notes/Report: IgG 936 107-7835 mg/dL IgA 308 70-320 mg/dL IgM 95 50-300 mg/dL THIS TEST WAS PERFORMED AT: [facility] [address] [address] SARA BARAJAS MD [employer] Interpretation SEE NOTE Normal pattern. No monoclonal proteins detected. Cortisol Random Reviewed date:09/22/2024 05:36:07 PM Interpretation: Performing Lab:[address] [address] Notes/Report: Cortisol Random 11.8 Reference Range*: Before 10 am 6.2-19.4 ug/dL After 5 pm 2.3-11.9 ug/dL *Please interpret above results accordingly. This test was performed using the Boyd chemiluminescent method. Values obtained from different assay methods cannot be used interchangeably. Patients receiving fludrocortisone, prednisolone or prednisone may show artificially elevated cortisol values due to cross-reactivity. Ramos Pichardo Reviewed date:01/05/2025 12:42:55 PM Interpretation: Performing Lab:[facility] [address], [place] [address] Notes/Report: Hold Gold See Note Specimen held untested for 24 hours; Call to request Chemistry testing. MM tomosynthesis screening B I Reviewed date:05/01/2025 05:32:34 PM Interpretation: Performing Lab: Notes/Report: [facility] [address] [place] [address] Mammography Report Signed Patient: Maday Arboleda MR#: [id number] : 1950 Acct:[id number] Age/Sex: 74 / F ADM Date: 04/25/25 Loc: HO.MAMMO Attending Dr: Spencer Stanley MD Ordering Physician: Spencer Stanley MD Results: 1Ne gative Date of Service: 04/25/25 Follow Up: 1 Year From Orig ina Mammogram Procedure(s): MM tomosynthesis screening BI Accession Number(s): [id number] cc: Spencer Stanley MD EXAMINATION: MM SCREENING [...] 04/30/25 2136 DD/ 1303 TD/TT: 04/25/25 1325 Hand Compositor: [facility] [address] [place] [address] Mammography Report Signed Patient: Maday Arboleda MR#: [id number] : 1950 Acct:[id number] Age/Sex: 74 / F ADM Date: 04/25/25 Loc: HO.MAMMO Attending Dr: Spencer Stanley MD Ordering Physician: Spencer Stanley MD Results: 1Ne gative Date of Service: 04/25/25 Follow Up: 1 Year From Orig inal Mammogram Procedure(s): MM tomosynthesis screening BI Accession Number(s): [id number] cc: Spencer Stanley MD EXAMINATION: MM SCREENING [...] OV> 04/30/252135 DD/ 1303 TD/TT: 04/25/25 1325 Hand Compositor: US venous duplex LE RT Reviewed date:05/10/2025 06:16:57 PM Interpretation: Performing Lab: Notes/Report: [address] [address] Ultrasound Report Signed Patient: Maday Arboleda MR#: [id number] : 1950 Acct:[id number] Age/Sex: 74 / F ADM Date: 05/10/25 Loc: .US Attending Dr: Spencer Stanley MD Ordering Physician: Spencer Stanley MD Date of Service: 05/10/25 Procedure(s): US venous duplex LE RT Accession Number(s): [id number] cc: Spencer Stanley MD EXAMINATION: US TRIPLEX [...] 05/10/25 1116 DD/ 1052 TD/TT: 05/10/25 1102 Hand Compositor: [address] [address] Ultrasound Report Signed Patient: Maday Arboleda MR#: [id number] : 1950 Acct:[id number] Age/Sex: 74 / F ADM Date: 05/10/25 Loc: .US Attending Dr: Spencer Stanley MD Ordering Physician: Spencer Stanley MD Date of Service: 05/10/25 Procedure(s): US gale ous duplex LE RT Accession Number(s): [id number] cc: Spencer Stanley MD EXAMINATION: US TRIPLEX [...] 05/10/25 1116 DD/ 1052 TD/TT: 05/10/25 1102 Hand Compositor: US renal doppler Reviewed date:06/29/2025 04:24:55 PM Interpretation: Performing Lab: Notes/Report: [facility] [address] [place] [address] Ultrasound Report Signed Patient: Maday Arboleda MR#: [id number] : 1950 Acct:[id number] Age/Sex: 74 / F ADM Date: 06/21/25 [facility]: Favian Nichols MD Ordering Physician: Favian Nichols MD Date of Service: 06/21/25 Procedure(s): US renal doppler Accession Number(s): [id number] cc: Spencer Stanley MD; Favian Nichols MD CLINICAL HISTORY: I10 - Essential (primary) hypertension Renal duplex ultrasound Comparison: None provided Technique: Real time duplex ultrasound imaging was performed by the parking analyst. Multiple chemical sales representative static images were saved for [...] 06/23/25 1203 DD/ 1248 TD/TT: 06/21/25 1248 Hand Compositor: [facility] [address] [place] [address] [place] [address] Ultrasound Report Signed Patient: Maday Arboleda MR#: [id number] : 1950 Acct:[id number] Age/Sex: 74 / F ADM Date: 06/21/25 Loc: .[facility] Attending Dr: Favian Nichols MD Ordering Physician: Favian Nichols MD Date of Service: 06/21/25 Procedure(s): US primo cai doppler Accession Number(s): [id number] cc: Spencer Stanley MD; Favian Nichols MD CLINICAL HISTORY: I1 0 - Essential (primary) hypertension Renal duplex ultrasound Comparison: None provided Technique: Real time duplex ultrasound imaging was performed by the parking analyst. Multipl e chemical sales representative static images were saved for [...] 06/23/25 1203 DD/ 1248 TD/TT: 06/21/25 1248 Hand Compositor: US renal BI Reviewed date:06/21/2025 02:03:56 PM Interpretation: Performing Lab: Notes/Report: [facility] [address] [place] [address] [place] [address] Ultrasound Report Signed Patient: Maday Arboleda MR#: [id number] : 1950 Acct:[id number] Age/Sex: 74 / F ADM Date: 06/21/25 Loc: HO.[facility] Attending Dr: Favian Nichols MD Ordering Physician: Favian Nichols MD Date of Service: 06/21/25 Procedure(s): US renal BI Accession Number(s): [id number] cc: Spencer Stanley MD; Favian Nichols MD CLINICAL HISTORY: I10 - Essential (primary) hypertension Renal duplex ultrasound Comparison: None provided Technique: Real time duplex ultrasound imaging was performed by the parking analyst. Multiple chemical sales representative static images were saved for [...] 06/21/25 1248 DD/ 1248 TD/TT: 06/21/25 1248 Hand Compositor: [facility] [address] [place] [address] [place] [address] Ultrasound Report Signed Patient: Maday Arboleda MR#: [id number] : 1950 Acct:[id number] Age/Sex: 74 / F ADM Date: 06/21/25 Loc: .[facility] Attending Dr: Favian Nichols MD Ordering Physician: Favian Nichols MD Date of Service: 06/21/25 Procedure(s): US primo Andrews Accession Number(s): [id number] cc: Spencer Stanley MD; Favian Nichols MD CLINICAL HISTORY: I1 0 - Essential (primary) hypertension Renal duplex ultrasound Comparison: None provided Technique: Real time duplex ultrasound imaging was performed by the parking analyst. Multipl e chemical sales representative static images were saved for [...] 06/21/25 1248 DD/ 1248 TD/TT: 06/21/25 1248 Hand Compositor: Electrolytes Reviewed date:07/26/2025 05:56:50 PM Interpretation: Performing Lab:[facility], [address] [place] [address] Notes/Report: Sodium 132 135-145 mmol/L Potassium 4.6 3.3-5.1 mmol/L Chloride 101 96-108 mmol/L Carbon Dioxide 27 22-29 mmol/L Anion Gap 9 12-20 Blood Urea Nitrogen Reviewed date:07/26/2025 05:55:48 PM Interpretation: Performing Lab:[facility], [address] [place] [address] Notes/Report: Blood Urea Nitrogen 16 9-16 mg/dL Creatinine Reviewed date:07/26/2025 05:55:31 PM Interpretation: Performing Lab:[address] [address] Notes/Report: Creatinine 0.69 0.5-1.4 mg/dL Estimated Glomerular [...] PM EST > appt is at their [facility] office [address] [facility] [address] 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 ONCE A DAY IN THE EVENING [...] Problem Status W/U Status Risk Notes Problem 11134154 Age-related osteoporosis without current pathological fracture (M81.0) Active confirmed Problem 751674938 Acute diverticulitis (K57.92) Active confirmed Problem 243086053 Reflux esophagit is (K21.00) Active confirmed Problem Vitamin D deficiency (22623034) Vitamin D deficiency (E55.9) Active confirmed Problem 458540286 Diverticulitis (K57.92) Active confirmed Problem Chronic frontal sinusitis (98870132) Chronic frontal sinusitis (J32.1) Active confirmed Problem 6411598 Diverticulitis o f large intestine without perforation or abscess without bleeding (K57.32) Active confirmed Problem 976650708 Other specified menopausal and perimenopausal disorders (N95.8) Active confirmed Problem 065328074 Lumbar disc disease (M51.9) Active confirmed Problem 154929470 Elevated LFTs (R79.89) Active confirmed Problem 253975942 Tubular adenoma of colon (D12.6) Active confirmed Problem 54950088 Essential hypertension (I10) Active confirmed Problem Osteoporosis (62138085) Osteoporosis (M81.0) Active confirmed Problem Disorder of female genital organs (773900024) Acute pelvic pain, female (N94.9) Active confirmed Problem 51456625 Oropharyngeal dysphagia (R13.12) Active confirmed Problem 20124102 Peptic ulcer disease (K27.9) Active confirmed Problem 69711306 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 confirmed Problem 580348309 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) Active confirmed Problem Macrocytosis - no anemia (067191368) Macrocytosis without anemia (D75.89) Active confirmed Vital Signs Heart Rate 60 /min 12/13/2024 weight is down 4 pounds since 11-14-24 Blood pressure diastolic 86 mm Hg 04/13/2025 Height 64 in 04/13/2025 Blood pressure systolic 172 mm Hg 04/13/2025 Weight 138 lbs 04/13/2025 BMI 23.69 kg/m2 04/13/2025 Encounters Encounter Location Date Provider Diagnosis Spencer Stanley MD [address] [place] [id number] 11/25/2024 Spencer Stanley Essential hypertensi on I10 Spencer Stanley MD [address] [place] [id number] 01/05/2025 Spencer Stanley Essential hypertensi on I10 ; Vitamin D deficiency E55.9 and Elevated LFTs R79.89 Spencer Stanley MD [address] [place] [id number] 02/23/2025 Spencer Stanley Diverticulitis K57.9 2 ; Rash R21 and Essential hypertension I10 Spencer Stanley MD [address] [place] [id number] 09/01/2024 Spencer Stanley Hyponatremia E87.1 Spencer Stanley MD [address] [place] [address] [address] [place] [id number] 09/02/2024 Spencer Stanley Essential hypertensi on I10 and Hyponatremia E87.1 Spencer Stanley MD [address] [place] [id number] 09/08/2024 Spencer Bombardier Essential hypertensi on I10 and Hyponatremia E87.1 Spencer Stanley MD [address] [place] [id number] 09/09/2024 Spencer Bombardier Essential hypertensi on I10 and Hyponatremia E87.1 Spencer Stanley MD [address] [place] [id number] 09/15/2024 Spencer Bombardier Essential hypertensi on I10 and Hyponatremia E87.1 Spencer Stanley MD [address] [place] [id number] 09/22/2024 Spencer Celineardier Essential hypertensi on I10 and Hyponatremia E87.1 Spencer Stanley MD [address] [place] [id number] 10/13/2024 Spencer Celineardier Essential hypertensi on I10 and Hyponatremia E87.1 Spencer Stanley MD [address] [place] [id number] 11/14/2024 Spencer Stanley Viral URI J06.9 Spencer Stanley MD [address] [place] [id number] 12/13/2024 Spencer Stanley Essential hypertensi on I10 and Abdominal wall pain R10.9 Spencer Stanley MD [address] [place] [id number] 01/12/2025 Spencer Celineardier Essential hypertensi on I10 ; Macrocytosis without anemia D75.89 ; Elevated LFTs R79.89 ; Vitamin D deficiency E55.9 ; Colon cancer screening Z12.11 and Depression screening Z13.31 Spencer Stanley MD [address] [place] [id number] 04/13/2025 Spencer Stanley Essential hypertensi on I10 and Bakers cyst, right M71.21 Spencer Stanley MD [address] [place] [id number] 09/05/2024 Spencer Stanley MD [address] [place] [address] [id number] 01/09/2025 Spencer Stanley MD [address] [place] [id number] 01/20/2025 Spencer Stanley MD [address] [place], [place] [id number] 02/14/2025 Spencer Stanley Assessments Encounter Date Diagnosis [...] went away so is not an allergy 09/01/2024 Hyponatremia (ICD-10 - E87.1) 09/02/2024 Essential hypertension (ICD-10 - I10) patient verbalized undestanding of medication and directions for use 09/02/2024 Hyponatremia (ICD-10 - E87.1) not able to take diuretic due to hyponatremia 09/08/2024 Essential hypertension (ICD-10 - I10) she stopped the valsartan when she started. restart the valsartan/ order faxed to [facility] CS dept, patient verbalized [...] I10) doing much better/ going to see promotion manager 09/22/2024 Hyponatremia (ICD-10 - E87.1) he [...] - M71.21) THE ORDER WAS FAXED TO [facility] CENTRALIZED FOR SCHEDULING 01/05/2025 Vitamin D deficiency (ICD-10 - E55.9) 02/23/2025 Essential hypertension (ICD-10 - I10) having side effects with every medicine that she takes and is making adjustments of her own and is difficult to get her bp controlled. to see hammer adjuster again 01/12/2025 Elevated LFTs (ICD-10 - R79.89) [...] 07:30:00 AM, [address], [address], [place], [place], [id number], Provider Name:Spencer Mccullough ier, 01/15/2026 09:30:00 AM, [address], [address], [place], [place], [id number], Insurance Providers Payer Name Payer Address Payer Phone Subscriber Number Group Number Insured Name Patient Relationship to Insured Coverage Start Date Coverage End Date MEDICARE NHIC [address] [place] [address] [id number] Maday Arboleda Self - patient is the insured [employer] [place] [address] [place] [address] [id number] Maday Arboleda Self - patient is the insured Medical (General) History Medical History History ICD Code can tolerate doxycycline without difficu lty Refuses flu [id number] colonoscopy 04/2009 - adenoma due in 5 years for upper and lower; colonoscopy and endo done 02/01/[address] Willis (repeat 01/2020) hysterectomy (has one ovary); no paps on ly pelvic exam Tinnitus of left ear colonoscopy done 04/29, due in 5 years
--- OUTSIDE RECORDS SUMMARY | 2025-08-24 10:58 | XMS_ITS | Patient Health Record ---
Author Organization [facility] Address [address] [place] [address] Care Team Providers Care Provider Relations Rep Name Role Phone Spencer Stanley MD Primary Care Provider Dany Regan Unavailable [phone] Allergies Allergen (clinical drug ingredient) Drug/Non Drug [...] Status Risk Notes Problem Diverticulitis of colon (034625525) Diverticulitis of large intestine without perforation or abscess without bleeding (K57.32) Active confirmed Problem Screening for malignant neoplasm of colon (473091760) Encounter for screening for malignant neoplasm of colon (Z12.11) Active confirmed Problem Gastroesophageal reflux disease without esophagitis (324301817) Gastroesophageal reflux disease without esophagitis (K21.9) Active confirmed Problem Elevated liver enzymes level (448613336) Elevated liver enzymes (R74.8) Active confirmed Problem Diverticulitis of colon (043002661) Diverticulitis of colon (K57.32) Active confirmed 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 [address] [place] [address] 12/06/2024 Dany Willis Diverticulitis of co laya K57.32 Assessments Encounter Date Diagnosis (ICD Code) Assessment Notes Treatment Notes Treatment Clinical Notes Section Notes 12/06/2024 Diverticulitis of colon (ICD-10 - K57.32) Repeat colonoscopy in 04/2026 Go on a liquid diet for 1 or 2 days if the diverticulitis flares up, but definitely go on antibiotics if not getting better Need [facility] CT scan in 2023 Overall, [...] Date MEDICARE OF [place] [address] [facility] [phone] [id number] ROBLESFANG GarcíaIA Self - patient is the insured [employer] ATT[employer] CLAIMS [address] [place] [address] [phone] [id number] ROBLESFANG GarcíaIA Self - patient is the insured Medical (General) History Medical History History ICD Code 2003 and 05/07/2009 Colonoscopy--negative for polyps Tubular adenoma--removed in 2000 Internal hemorrhoids Diverticulosis-mild divertic ulitis of the distal descending/proximal sigmoid colon described on a CT scan in 12/2012, 11/2016, and 09/2018 GERD--EGD in 2004-small HH--no esophagit is, no Arevalo's Hiatal hernia Denies UT,DM,CVA,Lung disease,renal dise ase Osteoporosis Negative abdominal ultrasound in 01/2015--colonoscopy with sma ll tubular adenomas removed, diverticulosis, and internal hemorrhoids 01/2015-EGD with a small hiat al hernia, but no esophagitis nor Arevalo's esophagus Hx of kidney stones Hypertension Colonoscopy 04/2021 with a single tubular adenoma Diverticulitis 2023--had a CT at [facility] Surgical History Surgery Date(Month/Year) Hammer toe Hysterectomy w/removal of 1 ovary
--- OUTSIDE RECORDS SUMMARY | 2025-08-24 10:58 | XMS_ITS | Patient Health Record ---
Author Organization [facility] Address [address] [place] [address] Care Team Providers Care Assembler Arranger Name Role Phone Spencer Stanley MD Primary Care Provider Sarabjit Caballero Unavailable [phone] Perla Diop Unavailable [phone] Allergies Allergen (clinical drug ingredient) Drug/Non Drug [...] W/U Status Risk Notes Problem Plantar wart (36438246) Plantar wart (B07.0) Active confirmed Problem Onychomycosis (569570975) Onychomycosis (B35.1) Active confirmed Vital Signs Blood pressure diastolic 78 mm Hg 08/11/2025 Height 5 ft 4 in in 08/11/2025 Blood pressure systolic 120 mm Hg 08/11/2025 Weight 137 lbs 08/11/2025 BMI 23.51 kg/m2 08/11/2025 Procedures Procedure Date Ordered Date Performed Result Body Sit e 86593-ONGPSGA NAIL, 1-5 11/15/2024 N/A 27660-Gvon Destruction, 1-14 11/15/2024 N/A Encounters Encounter Location Date Provider Diagnosis [address] [address] 11/15/2024 Sarabjit Manriquez Pain in left toe(s) M79.675 ; Onychomycosis B35.1 ; Right foot pain M79.671 ; Plantar wart B07.0 ; Pain in right ankle and joints of right foot M25.571 ; Bursitis of intermetatarsal bursa of right foot M77.51 and Metatarsalgia, right foot M77.[address] [facility] [address] 08/11/2025 Perla Poncea Right foot pain M79. 671 and Plantar wart B07.0 [facility] [address] 11/15/2024 Sarabjit Manriquez [facility] [place] [address] [place] [address] 11/17/2024 Sarabjit Manriquez Assessments Encounter Date Diagnosis [...] X ray : Foot, right 3V 09/25/2022 26536-CFZIYHB NAIL, 1-5 11/15/2024 29167-Ivmg Destruction, 1-14 11/15/2024 50628-Jzohdwus Plate 12/08/2017 66536- Debride <25 sq cm 12/25/2017 Insurance Providers Payer Name Payer Address Payer Phone Subscriber Number Group Number Insured Name Patient Relationship to Insured Coverage Start Date Coverage End Date Medicare National [employer] [address] [place] [address] [id number] Maday Draper Self - patient is the insured [employer] [facility] [address] [place] [address] [id number] Maday Draper Self - patient is the insured Medical (General) History Medical History History ICD Code Diverticulosis Measles Mumps Chicken pox Osteoporosis Reflux ( GERD) Hypertension Elevated LFTs Vitamin D deficiency Hypercalciuria Tubular adenoma of colon Cataracts Surgical History Surgery Date(Month/Year) hysterectomy 1986 ilana Sheehan
== END 2025-08-24 10:12 | disposition home or self-care (01) ==
LOC: HO.HCS 09:34
PROVIDERS: PCP Internal Medicine; Visit Provider Internal Medicine
DX: I10 Essential (primary) hypertension (principal)
CPT/HCPCS: 99214

== ENCOUNTER → 2025-08-24 09:33 | Outpatient (BNVA) | payer MEDICARE, SELFPAY | PROVIDERS: PCP Internal Medicine; Visit Provider Internal Medicine | DX: I10 Essential (primary) hypertension (principal) | CPT/HCPCS: 99212 ==

== ENCOUNTER 2025-09-22 13:56 | Outpatient (AMB) | payer MEDICARE, SELFPAY ==
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
--- OUTSIDE RECORDS SUMMARY | 2024-11-25 10:30 | XMS_ITS ---
Author Organization Spencer Stanley MD Address [address] [place] [phone] Care Team Providers Care Adjunct Art History Instructor Name Role Phone Spencer Stanley Primary Care Provider Allergies Allergen (clinical drug ingredient) Drug/Non Drug Allergy documented on EMR Reaction Allergy Type Onset Date Status epinephrine (uncoded) heart palpitations Allergy Active tetracycline tetracycline (uncoded) rash Allergy Active REASON FOR VISIT HBP, BP this afternoon is 177/110 but did not take Diltazen 60mg last night because she does not feel well foggy , Video [phone] Medications Medication SIG (Take, Route, Frequency, Duration) Notes Start Date End Date Status Vistaril 25 MG 1 capsule as needed Orally every 8 hrs as needed for 30 days 2021 Not-Taking Vitamin K (Phytonadione) Not-Taking Valsartan 320 MG 1 tablet Orally Once a day Active Finacea 15 % 1 application [employer] Worker ally ONCE A DAY IN THE EVENING Active Dilt-XR 120 MG 1 capsule Orally Onc e a day Active Valtrex 500 MG 1 tablet Orally ever y 12 hrs for 10 day(s) Not-Taking dilTIAZem HCl 60 MG as directed Orally Active Tylenol 8 Hour Arthritis Pain 650 MG 2 tablets as needed Orally every 8 hrs Not-Taking Econazole Nitrate 1 % 1 application Exte rnally Once a day for 14 day(s) 10/29/2021 Not-Bashir ing Omeprazole 20 MG TAKE 1 CAPSULE BY [facility] EVERY DAY 30 MINUTES BEFORE BREAKFAST for 90 Not-Taki ng Melatonin 5 MG 1 tablet at bedtime and a 1mg tablet Orally at bedtime Not-Taking Vitamin D-3 1000 UNIT 1 capsule Orally O nce a day Not-Taking Vital Signs Height 64 in 11/25/2024 eight at home is 144 BP 177/ 110 Encounters Encounter Location Date Provider Diagnosis Spencer Stanley MD [address] [place] [phone] 11/25/2024 Spencer Stanley Essential hypertension I10 Assessments Encounter Date Diagnosis (ICD Code) Assessment Notes Treatment Notes Treatment Clinical Notes Section Notes 11/25/2024 Essential hypertension (ICD-10 - I10) going to take the medicine as directed and call me next week if still high Plan Of Treatment Medication Medication Name Sig Start Date Stop Date Notes Valsartan 320 MG 1 tablet Orally Once a day Dilt-XR 120 MG 1 capsule Orally Once a day dilTIAZem HCl 60 MG as directed Orally Treatment Notes Assessment Notes Essential hypertension going to take the medicine as directed and call me next week if still high Next Appt Details Provider Name:Spencer correa, 11/06/2025 01:45:00 PM, [address] [place] [address], [place] [address], [place], [phone], Provider Name:Spencer correa, 01/08/2026 07:30:00 AM, [address] [place] [address], [address], [phone], Provider Name:Spencer correa, 01/15/2026 09:30:00 AM, [address] [place] [address], [phone], Progress Notes * Maday ARBOLEDA MDOB:[birth year] (75 yo F)Acc No.[id number]:11/25/2024 Patient: Maday DESAI Provider: Neris Stanley MD :[id number] A ge:74 Y S ex:Female Date:11/25/2024 Address:[address] [place] [address], [place], [id number] Subjective: * Chief Complaints: * H BPBP this afternoon is 177/110 but did not take Diltazen 60mg last night because she does not feel well foggy Video [phone] * HPI: S ymptom(s): Telehealth L ocation of provider rendering services: [address], [address], L ocation of patient: a t address listed in demographics for today's visit, P atient identification confirmed using: LOREE Perrin ame, SSN, Insurance information, T elehealth method: V ideo conference where patient is visible to the provider of care, C onsent: P atient verbally consented to treatment, Patient verbally consented to billing insurance company, Patient informed of any privacy concerns related to method of visit. patient is a 74 yo female feels badly on her bp meds. headache,stomache ache and tired. skippped the 60 last night and felt better this morning and heart was beating faster and bp was up heart beat up to 110. * ROS: G eneral/Constitutional: Denies C hills. D enies F atigue. D enies F ever. A dmits H eadache. E NT: Patient denies d ecreased sense of smell , any loss of taste , sore throat. D enies S ore throat. R espiratory: Denies C ough. D enies S hortness of breath at rest. D enies S hortness of breath with exertion. C ardiovascular: Denies C hest pain at rest. D enies C hest pain with exertion. D enies D izziness. D enies P alpitations. D enies S hortness of breath. G astrointestinal: Denies D iarrhea. D enies N ausea. M usculoskeletal: Patient denies m uscle aches. P eripheral Vascular: Patient denies r ed and blue toes. * Medical History: * Surgical History: * Hospitalization/Major Diagno stic Procedure: * Medications: T akingdilTIAZem HCl 60 MG Tablet as directed Orally Dilt-XR 120 MG Capsule Extended Release 24 Hour 1 capsule Orally Once a day Finacea 15 % Gel 1 application Externally ONCE A DAY IN THE EVENING Valsartan 320 MG Tablet 1 tablet Orally Once a day Taking dilTIAZem HCl 60 MG Tablet as directed Orally Taking Dilt-XR 120 MG Capsule Extended Release 24 Hour 1 capsule Orally Once a day Taking Finacea 15 % Gel 1 application Externally ONCE A DAY IN THE EVENING Taking Valsartan 320 MG Tablet 1 tablet Orally Once a day Not-Taking/PRNVistaril 25 MG Capsule 1 capsule as needed Orally every 8 hrs as needed Vitamin K (Phytonadione) Melatonin 5 MG Tablet 1 tablet at bedtime and a 1mg tablet Orally at bedtime Vitamin D-3 1000 UNIT Capsule 1 capsule Orally Once a day Tylenol 8 Hour Arthritis Pain 650 MG Tablet Extended Release 2 tablets as needed Orally every 8 hrs Omeprazole 20 MG Capsule Delayed Release TAKE 1 CAPSULE BY MOUTH EVERY DAY 30 MINUTES BEFORE BREAKFAST Econazole Nitrate 1 % Cream 1 application Externally Once a day Valtrex 500 MG Tablet 1 tablet Orally every 12 hrs Medication List reviewed and reconciled with the patientNot-Taking/PRN Vistaril 25 MG Capsule 1 capsule as needed Orally every 8 hrs as needed Not-Taking/PRN Vitamin K (Phytonadione) Not-Taking/PRN Melatonin 5 MG Tablet 1 tablet at bedtime and a 1mg tablet Orally at bedtime Not-Taking/PRN Vitamin D-3 1000 UNIT Capsule 1 capsule Orally Once a day Not-Taking/PRN Tylenol 8 Hour Arthritis Pain 650 MG Tablet Extended Release 2 tablets as needed Orally every 8 hrs Not-Taking/PRN Omeprazole 20 MG Capsule Delayed Release TAKE 1 CAPSULE BY MOUTH EVERY DAY 30 MINUTES BEFORE BREAKFAST Not-Taking/PRN Econazole Nitrate 1 % Cream 1 application Externally Once a day Not-Taking/PRN Valtrex 500 MG Tablet 1 tablet Orally every 12 hrs Medication List reviewed and reconciled with the patient * Allergies: t etracycline: rashepinephrine: heart palpitationsyes[Allergies Verified] Objective: * Vitals: H t: 64. eight at home is 144 BP 177/110. * Examination: G eneral Examination: GENERAL APPEARANCE: a lert, well hydrated, in no distress.? HEAD: n ormocephalic. Assessment: * Assessment: 1. E ssential hypertension - I10 (Primary) Plan: * Treatment: * Procedure Codes: * * Sign off status: Completed true * Provider: Neris Stanley MD Date: 0 11/25/2024 Generated for Kwaku hernández/Jameson/eTransmitting on: 1 11/22/2024 08:36 PM EST History and Physical Notes * HPI (History of Present Illness) Category Sub-Category Detail Notes Category Not es Symptom(s) [facility] [address], [address] patient is a 74 yo female feels badly on her bp meds. headache,stomache ache and tired. skippped the 60 last night and felt better this morning and heart was beating faster and bp was up heart beat up to 110 Location of patient:: at address listed in demographics for today's visit Patient identification confirmed using:: Name, , SSN, Insurance information Telehealth method:: Video co nference where patient is visible to the provider of care Consent:: Patient verbally c onsented to treatment, Patient verbally consented to billing insurance company, Patient informed of any privacy concerns related to method of visit Examination Category Sub-Category Detail Notes Category Not es General Examination GENERAL APPEARANCE: alert, w ell hydrated, in no distress HEAD: normocephalic
--- OUTSIDE RECORDS SUMMARY | 2024-12-13 04:15 | XMS_ITS ---
Author Organization Spencer Stanley MD Address [address] [place] [phone] Care Team Providers Care Automotive Design Drafter Name Role Phone Spencer Stanley Primary Care Provider Allergies Allergen (clinical drug ingredient) Drug/Non Drug Allergy documented on EMR Reaction Allergy Type Onset Date Status epinephrine (uncoded) heart palpitations Allergy Active tetracycline tetracycline (uncoded) rash Allergy Active REASON FOR VISIT pain under left rib that comes and goes x years getting worse, Does not feel right on the BP med Medications Medication SIG (Take, Route, Frequency, Duration) Notes Start Date End Date Status Dilt-XR 120 MG 1 capsule Orally Onc e a day Active Valsartan 320 MG 1 tablet Orally Once a day Active Econazole Nitrate 1 % 1 application Exte rnally Once a day for 14 day(s) 10/29/2021 Not-Bashir ing Valtrex 500 MG 1 tablet Orally ever y 12 hrs for 10 day(s) Not-Taking Omeprazole 20 MG TAKE 1 CAPSULE BY MO [facility] EVERY DAY 30 MINUTES BEFORE BREAKFAST for 90 Not-Taki ng Vistaril 25 MG 1 capsule as needed Orally every 8 hrs as needed for 30 days 2021 Not-Taking Tylenol 8 Hour Arthritis Pain 650 MG 2 tablets as needed Orally every 8 hrs Not-Taking Melatonin 5 MG 1 tablet at bedtime and a 1mg tablet Orally at bedtime Not-Taking Vitamin D-3 1000 UNIT 1 capsule Orally O nce a day Not-Taking Vitamin K (Phytonadione) Not-Taking Finacea 15 % 1 application Seed Specialist ally ONCE A DAY IN THE EVENING Active Vital Signs Blood pressure systolic 164 mm Hg 12/13/19 25 Blood pressure diastolic 80 mm Hg 025 Heart Rate 60 /min 12/13/2024 Height 64 in 12/13/2024 Weight 140 lbs 12/13/2024 BMI 24.03 kg/m2 12/13/2024 weight is down 4 pounds [facility] e 11-14-24 Encounters Encounter Location Date Provider Diagnosis Spencer Stanley MD [address] [place], [place] [phone] 12/13/2024 Spencer Stanley Essential hypertension I10 and Abdominal wall pain R10.9 Assessments Encounter Date Diagnosis (ICD Code) Assessment Notes Treatment Notes Treatment Clinical Notes Section Notes 12/13/2024 Essential hypertension (ICD-10 - I10) finally well controlled. have explained that she may need to put up with some of the side effects, will continue current regiment 12/13/2024 Abdominal wall pain (ICD-10 - R10.9) already had a negative ct, will observe Plan Of Treatment Medication Medication Name Sig Start Date Stop Date Notes Dilt-XR 120 MG 1 capsule Orally Once a day Valsartan 320 MG 1 tablet Orally Once a day Treatment Notes Assessment Notes Essential hypertension finally well cont rolled. have explained that she may need to put up with some of the side effects, will continue current regiment Abdominal wall pain already had a negati ve ct, will observe Next Appt Details Provider Name:Spencer correa, 11/06/2025 01:45:00 PM, [address], [address], [place], [place], [phone], Provider Name:Spencer Mccullough ier, 01/08/2026 07:30:00 AM, [address], [address], [place], [phone], Provider Name:Spencer Mccullough ier, 01/15/2026 09:30:00 AM, [address], [address], [place], [phone], Progress Notes * Maday ARBOLEDA MDOB:[birth year] (74 yo F)Acc No.[id number]:12/13/2024 Progress Notes Patient: Ayan GAMaday ALBERTS Mario Provider: Neris Stanley MD :1950 A ge:74 Y S ex:Female Date:12/13/2024 Address:[address] [place], [place] [phone] Subjective: * Chief Complaints: * P ain under left rib that comes and goes x years getting worseDoes not feel right on the BP med * HPI: S ymptom(s): patient is a 74 yo female here with complaint of left rib paoin, feels like a stitch in the muscles by her xiphoid. is worse with activity. feeling tired. dr mckinney said she had a ct scan in june. has had this minor for a couple years. worse but skeleton is changing. felt sudden pain in rib on laying down to do yoga/ felt good all last week and then getting headache and stomachy. * ROS: G eneral/Constitutional: Denies C hills. D enies F atigue. D enies F ever. D enies H eadache. E NT: Patient denies d ecreased sense of smell, any loss of taste, sore throat. D enies S ore throat. R espiratory: Denies C ough. D enies S hortness of breath at rest. D enies S hortness of breath with exertion. G astrointestinal: Denies D iarrhea. D enies N ausea. M usculoskeletal: Patient denies m uscle aches. P eripheral Vascular: Patient denies r ed and blue toes. * Medical History: * Surgical History: * Hospitalization/Major Diagno stic Procedure: * Medications: T akingFinacea 15 % Gel 1 application Externally ONCE A DAY IN THE EVENING Dilt-XR 120 MG Capsule Extended Release 24 Hour 1 capsule Orally Once a day Valsartan 320 MG Tablet 1 tablet Orally Once a day Taking Finacea 15 % Gel 1 application Externally ONCE A DAY IN THE EVENING Taking Dilt-XR 120 MG Capsule Extended Release 24 Hour 1 capsule Orally Once a day Taking Valsartan 320 MG Tablet 1 tablet [...] Tablet 1 tablet Orally every 12 hrs Not-Taking/PRN Vistaril 25 MG Capsule 1 capsule [...] Tablet 1 tablet Orally every 12 hrs DiscontinueddilTIAZem HCl 60 MG Tablet as directed Orally Medication List reviewed and reconciled with the patientDiscontinued dilTIAZem HCl 60 MG Tablet as directed Orally Medication List reviewed and reconciled with the patient * Allergies: t etracycline: rashepinephrine: heart palpitationsyes[Allergies Verified] Objective: * Vitals: H t: 64, Wt: 140, BMI:24.03, BP:164/80, Repeat BP:144/78, HR:60, Wt-k.5. weight is down 4 pounds since 11-14-24. * Examination: G eneral Examination: GENERAL APPEARANCE: a lert, well hydrated, in no distress.? HEAD: n ormocephalic. SKIN: g ood turgor. HEART: n o murmurs, rubs, gallops, regular rate and rhythm.? LUNGS: n o wheezes, rales, rhonchi, good air movement, clear to auscultation bilaterally. ABDOMEN: n ormal soft non tender with no masses.. ? Assessment: * Assessment: 1. E ssential hypertension - I10 (Primary) 2 . A bdominal wall pain - R10.9? Plan: * Treatment: 2. A bdominal wall pain Notes: already had a negative ct, will observe * Procedure Codes: * * Sign off status: Completed true * Provider: Neris Stanley MD Date: 0 12/13/2024 Generated for Kwaku hernández/Jameson/eTransmitting on: 11/22/2024 08:37 PM EST History and Physical Notes * HPI (History of Present Illness) Category Sub-Category Detail Notes Category Not es Symptom(s) patient is a 74 yo female here with complaint of left rib paoin, feels like a stitch in the muscles by her xiphoid. is worse with activity. feeling tired. dr mckinney said she had a ct scan in june. has had this minor for a couple years. worse but skeleton is changing. felt sudden pain in rib on laying down to do yoga/ felt good all last week and then getting headache and stomachy Examination Category Sub-Category Detail Notes Category Not es General Examination GENERAL APPEARANCE: alert, w ell hydrated, in no distress HEAD: normocephalic HEART: no murmurs, rubs, ga llops, regular rate and rhythm LUNGS: no wheezes, rales, r honchi, good air movement, clear to auscultation bilaterally ABDOMEN: normal soft non tend er with no masses. SKIN: good turgor
--- OUTSIDE RECORDS SUMMARY | 2025-01-05 02:45 | XMS_ITS ---
Author Organization Spencer Stanley MD Address [address] [place] [phone] Care Team Providers Care Languages And Literature Instructor Name Role Phone Spencer Stanley Primary Care Provider [phone] Results Component Value Reference Range Notes Complete Blood Count Auto Di ff Reviewed date:01/05/2025 04:35:02 PM Interpretation: Performing Lab:[facility], [address] [place] [phone] Notes/Report: White Blood Count 5.0 4.8-10.8 X10*3/uL Red Blood Count 4.08 4.20-5.50 X10*6/uL Hemoglobin 13.5 12.0-16.0 g/dl Hematocrit 41.2 37.0-47.0 % Mean Corpuscular Volume 101.0 80.0-98.0 fL Mean Corpuscular Hemoglobin 33.1 27.0-33.0 pg Mean Corpuscular HGB Conc 32.8 31.0-35.0 g/dl Red Cell Distribution Width 13.1 11.0-16.0 % Platelet Count 272 160-400 X10*3/uL Mean Platelet Volume 10.0 9.4-12.3 fL Neutrophils Percent Auto 47.6 45-73 % Imm Gran Pct Auto 0.2 0.0-0.4 % Lymphocytes Percent Auto 40.8 20-40 % Monocytes Percent Auto 8.2 2-11 % Eosinophils Percent Auto 2.4 0-4 % Basophils Percent Auto 0.8 0-2 % NRBC Pct Auto 0.0 0.0-0.2 /100WBC Neutrophils Absolute Auto 2.4 2.0-8.3 x10*3/u L Imm Gran Abs Auto 0.01 0.00-0.03 X10*3/uL Lymphocytes Absolute Auto 2.0 1.2-4.9 X10*3/u L Monocytes Absolute Auto 0.4 0.1-1.2 X10*3/uL Eosinophils Absolute Auto 0.1 0.0-0.4 X10*3/u L Basophils Absolute Auto 0.0 0.0-0.2 X10*3/uL NRBC Abs Auto 0.000 0.0-0.012 X10*3/uL Comprehensive [place]. Panel Fa st Reviewed date:01/05/2025 12:43:17 PM Interpretation: Performing Lab:[facility], [address] [place] [phone] Notes/Report: Sodium 140 135-145 mmol/L Potassium 4.1 3.3-5.1 mmol/L Chloride 109 96-108 mmol/L Carbon Dioxide 25 22-29 mmol/L Anion Gap 10 12-20 Blood Urea Nitrogen 14 9-16 mg/dL Creatinine 0.68 0.5-1.4 mg/dL Estimated Glomerular Filt Rate > 60 Chronic Kidney Disease: Estimated GFR < 60 mL/min/1.73m2 Severe Kidney Disease: Estimated GFR < 15 mL/min/1.73m2 Glucose Fasting 81 60-99 mg/dL Calcium 9.4 8.4-10.2 mg/dL Bilirubin Total 0.4 0.0-1.0 mg/dL Aspartate Amino Transferase 32 5-31 U/L Alanine Aminotransferase 31 0-31 U/L Total Protein 7.1 6.5-8.0 g/dL Albumin Level 4.0 3.5-5.0 g/dL Alkaline Phosphatase 106 39-117 U/L Liver Panel Reviewed date:01/05/2025 12:43:41 PM Interpretation: Performing Lab:[facility], [address] [place] [phone] Notes/Report: Bilirubin Direct 0.2 0.0-0.5 mg/dL Lipid Panel Reviewed date:01/05/2025 12:43:26 PM Interpretation: Performing Lab:[facility], [address] [place] [phone] Notes/Report: Triglycerides 59 <150 mg/dL Desirable Triglyceride: less than 150 mg/dL Borderline High Triglyceride 150-199 mg/dL High Triglyceride: 200-499 mg/dL Very High Triglyceride: greater than or equal to 5OO mg/dL Cholesterol 251 <200 mg/dL Desirable Cholesterol: less than 200 mg/dL Borderline High Cholesterol: 200-239 mg/dL High Cholesterol: greater than 239 mg/dL LDL Cholesterol Calculated 162 <100 mg/dL Desirable LDL: less than 100 mg/dL Near Optimal/Above Optimal LDL: 110-129 mg/dL Borderline High LDL: 130-159 mg/dL High LDL: 160-189 mg/dL Very High LDL: greater than or equal to 190 mg/dL HDL Cholesterol 78 >40 mg/dL Desirable HDL: greater than 40 mg/dL Note: This HDL assay may give artificially low results in patients with liver disease. Vitamin D 25-OH Total Reviewed date:01/05/2025 12:43:34 PM Interpretation: Performing Lab:[facility], [address] [place] [phone] Notes/Report: Vitamin D 25-OH Total 62.4 >30 ng/mL Health Based Reference Values* < 20 ng/mL Deficient 20-30 ng/mL Insufficient > 30 ng/mL Sufficient *Iveth BACA. N Engl J Med. 2007;357:266-280 Care must be taken in interpreting Vitamin D results from different laboratories and methodologies. Published data demonstrated that results from patients undergoing hemodialysis may show a negative bias when tested with various automated 25-OH vitamin D assays when compared to LC-MS/MS. When testing samples from patients whose predominant form of Vitamin D is Vitamin D2, such as patients receiving Vitamin D2 supplementation, results that are subtherapeutic should be confirmed with another method such as LC-MS/MS. REASON FOR VISIT FASTING LABS Encounters Encounter Location Date Provider Diagnosis Spencer Stanley MD [address] [place] [address] [place] [phone] 01/05/2025 Spencer Stanley Essential hypertension I10 ; Vitamin D deficiency E55.9 and Elevated LFTs R79.89 Assessments Encounter Date Diagnosis (ICD Code) Assessment Notes Treatment Notes Treatment Clinical Notes Section Notes 01/05/2025 Essential hypertension (ICD-10 - I10) 01/05/2025 Vitamin D deficiency (ICD-10 - E55.9) 01/05/2025 Elevated LFTs (ICD-10 - R79.89) Plan Of Treatment Pending Test Test Name Order Date UA ClnCatch+Micro w/rflx Cult 01/05/2025 Next Appt Details Provider Name:Spencer correa, 11/06/2025 01:45:00 PM, [address] [place] [address], [address] [place] [address], [phone], Provider Name:Spencer correa, 01/08/2026 07:30:00 AM, [address] [place] [address], [address], [phone], Provider Name:Spencer rodríguezr, 01/15/2026 09:30:00 AM, [address] [place] [address], [address], [phone], Progress Notes * Maday ARBOLEDA MDOB:[birth year] (75 yo F)Acc No.[id number]:01/05/2025 Progress Note Patient: Ayan Maday COOMBS Provider: Neris Stanley MD :1950 A ge:74 Y S ex:Female Date:01/05/2025 Address:[address] [place], [place] [phone] Subjective: * Chief Complaints: * 1 . FASTING LABS. * Medical History: Objective: * Vitals: Assessment: * Assessment: 1. E ssential hypertension - I10 (Primary) 2 . V itamin D deficiency - E55.9 3 . E levated LFTs - R79.89 Plan: * Treatment: 2. V itamin D deficiency L AB: UA ClnCatch+Micro w/rflx Cult L AB: Complete Blood Count Auto Diff (Collection Date & Time - 01/05/2025 07:45 AM) L AB: Comprehensive [place]. Panel Fast (Collection Date & Time - 01/05/2025 07:45 AM) L AB: Liver Panel (Collection Date & Time - 01/05/2025 07:45 AM) L AB: Lipid Panel (Collection Date & Time - 01/05/2025 07:45 AM) L AB: Vitamin D 25-OH Total (Collection Date & Time - 01/05/2025 07:45 AM) 3. E levated LFTs L AB: UA ClnCatch+Micro w/rflx Cult L AB: Complete Blood Count Auto Diff (Collection Date & Time - 01/05/2025 07:45 AM) L AB: Comprehensive [place]. Panel Fast (Collection Date & Time - 01/05/2025 07:45 AM) L AB: Liver Panel (Collection Date & Time - 01/05/2025 07:45 AM) L AB: Lipid Panel (Collection Date & Time - 01/05/2025 07:45 AM) L AB: Vitamin D 25-OH Total (Collection Date & Time - 01/05/2025 07:45 AM) * Procedure Codes: 3 6415 VENIPUNCT, ROUTINE* * * The named appointment provid er may or may not be the originator of this progress note, and it is not deemed complete until electronically signed by the appointment provider. Sign off status: Pending * Provider: Neris Stanley MD Date: 0 01/05/2025 Generated for Kwaku hernández/Jameson/Yousuf on: 1 11/22/2024 08:37 PM EST
--- OUTSIDE RECORDS SUMMARY | 2025-01-09 10:07 | XMS_ITS ---
Author Organization Spencer Stanley MD Address [address] [place] [phone] Care Team Providers Care Deputy Fire Chief Name Role Phone Spencer Stanley Primary Care Provider REASON FOR VISIT US abd no done Encounters Encounter Location Date Provider Diagnosis Spencer Stanley MD [address] [facility] [address] [place] [phone] 01/09/2025 Spencer Stanley Plan Of Treatment Next Appt Details Provider Name:Spencer correa, 11/06/2025 01:45:00 PM, [address] [place] [address], [address] [place] [address], [phone], Provider Name:Spencer correa, 01/08/2026 07:30:00 AM, [address] [place] [address], [address], [phone], Provider Name:Spencer Mccullough ier, 01/15/2026 09:30:00 AM, [address], [address], [place], [phone], Progress Notes * Maday ARBOLEDA MDOB:[birth year] (74 yo F)Acc No.[id number]:01/09/2025 Patient: Maday DESAI :1950 A ge:74 Y S ex:Female Address:[address] [place] [address], [place] [address] * true * Date: Generated for Kwaku hernández/Jameson/Chrissmitting on: 11/22/2024 08:37 PM EST
--- OUTSIDE RECORDS SUMMARY | 2025-01-12 04:30 | XMS_ITS ---
Author Organization Spencer Stanley MD Address [address] [place] [phone] Care Team Providers Care Nitrate Operator Name Role Phone Spencer Stanley Primary Care Provider Allergies Allergen (clinical drug ingredient) Drug/Non Drug Allergy documented on EMR Reaction Allergy Type Onset Date Status epinephrine (uncoded) heart palpitations Allergy Active tetracycline tetracycline (uncoded) rash Allergy Active Results Component Value Reference Range Notes Occult Blood, Stool, Guaiac Reviewed date:01/12/2025 10:30:48 AM Interpretation:Negative Performing Lab: Notes/Report: Negative Occult Blood, Stool, Guaiac Neg UA ClnCatch+Micro w/rflx Cul t Reviewed date:01/12/2025 11:52:13 AM Interpretation: Performing Lab:[facility], [address] [place] [phone] Notes/Report: Urine, Clean Catch Color Urine Yellow Appearance Urine Clear PH 6.5 5.0-9.0 Glucose Urine UA Negative Negative mg/dL Urine Blood Negative Negative Specific [place] - Urine 1.010 1.005-1.025 Urine Protein Negative Neg-Trace mg/dL Urine Ketones Negative Negative mg/dL Nitrite Urine Negative Negative Leukocyte Esterase Urine Negative Negative RBC Urine 0-2 0-2 /HPF WBC Urine 0-5 0-5 /HPF Squamous Epithelial Cell Urine 0-2 0-2 /HPF Bacteria Urine None Seen None Seen Hyaline Casts Urine 0-2 0-2 /LPF REASON FOR VISIT COMP EXAM still c/o headache, US ABD has not done yet. Medications Medication SIG (Take, Route, Frequency, Duration) Notes Start Date End Date Status Tylenol 8 Hour Arthritis Pain 650 MG 2 tablets as needed Orally every 8 hrs Not-Taking Omeprazole 20 MG TAKE 1 CAPSULE BY MO [facility] EVERY DAY 30 MINUTES BEFORE BREAKFAST for 90 Not-Taki ng Vitamin D-3 1000 UNIT 1 capsule Orally O nce a day Not-Taking Econazole Nitrate 1 % 1 application Exte rnally Once a day for 14 day(s) 10/29/2021 Not-Bashir ing Valtrex 500 MG 1 tablet Orally ever y 12 hrs for 10 day(s) Not-Taking Melatonin 5 MG 1 tablet at bedtime and a 1mg tablet Orally at bedtime Not-Taking Vistaril 25 MG 1 capsule as needed Orally every 8 hrs as needed for 30 days 2021 Not-Taking Vitamin K (Phytonadione) Not-Taking Dilt-XR 120 MG 1 capsule Orally Onc e a day Active Valsartan 320 MG 1 tablet Orally Once a day Active Finacea 15 % 1 application Transfer Engineer ally ONCE A DAY IN THE EVENING Active dilTIAZem HCl 60 MG as directed Orally Active Social History Tobacco Use: Social History Observation Description Date Details (start date - stop date) Former Smoker NA - NA Tobacco Use/Smoking Question Answer Notes Patient is a former smoker How long has it been since y ou last smoked? > 10 years Additional Findings: Tobacco Non-User Fo rmer smoker, currently using no form of tobacco Alcohol Screen Question Answer Notes Did you have a drink contain ing alcohol in the past year? Yes How often did you have a dri nk containing alcohol in the past year? Monthly or less (1 point) How many drinks did you have on a typical day when you were drinking in the past year? 1 or 2 drinks (0 point) How often did you have 6 or more drinks on one occasion in the past year? Never (0 point) Points 1 Interpretation Negative Problems Problem Type SNOMED Code ICD Code Onset Dates Problem Status W/U Status Risk Notes Problem Macrocytosis - no anemia (918831991) Macrocytosis without anemia (D75.89) Active confirmed Vital Signs Blood pressure systolic 144 mm Hg 01/13/20 25 Blood pressure diastolic 72 mm Hg 025 Height 64 in 01/12/2025 Weight 141 lbs 01/12/2025 BMI 24.2 kg/m2 01/12/2025 Encounters Encounter Location Date Provider Diagnosis Spencer Stanley MD [address] [place] [address] [place] [phone] 01/12/2025 Spencer Stanley Essential hypertension I10 ; Macrocytosis without anemia D75.89 ; Elevated LFTs R79.89 ; Vitamin D deficiency E55.9 ; Colon cancer screening Z12.11 and Depression screening Z13.31 Assessments Encounter Date Diagnosis (ICD Code) Assessment Notes Treatment Notes Treatment Clinical Notes Section Notes 01/12/2025 Essential hypertension (ICD-10 - I10) stable, will cntinue current regiment 01/12/2025 Macrocytosis without anemia (ICD-10 - D75.89) will continue to monitor 01/12/2025 Elevated LFTs (ICD-10 - R79.89) stable, will continue to monitor 01/12/2025 Vitamin D deficiency (ICD-10 - E55.9) stabe, will continue current regiment and will continue to monitor 01/12/2025 Colon cancer screening (ICD-10 - Z12.11) guaiac negative 01/12/2025 Depression screening (ICD-10 - Z13.31) negtive screen Plan Of Treatment Treatment Notes Assessment Notes Essential hypertension stable, will cnti nue current regiment Macrocytosis without anemia will continu e to monitor Elevated LFTs stable, will continu e to monitor Vitamin D deficiency stabe, will continu e current regiment and will continue to monitor Colon cancer screening guaiac negative Depression screening negtive screen Pending Test Test Name Order Date Vitamin B12 and Folate 01/12/2025 Next Appt Details Follow Up: 3 Months, Reason: Provider Name:Spencer Mccullough madeline, 11/06/2025 01:45:00 PM, [address], [address], [place], [phone], Provider Name:Spencer Mccullough marcossánchez, 01/08/2026 07:30:00 AM, [address], [address], [place], [phone], Provider Name:Spencer Mccullough madeline, 01/15/2026 09:30:00 AM, [address], [address], [place], [phone], Progress Notes * Maday ARBOLEDA MDOB:[birth year] (74 yo F)Acc No.[id number]:01/12/2025 Patient: Ayan Maday COOMBS Provider: Neris Stanley MD :1950 A ge:74 Y S ex:Female Date:01/12/2025 Address:[address] [place] [address] [place], [phone] Subjective: * Chief Complaints: * C OMP EXAM still c/o headacheUS ABD has not done yet. * HPI: D epression Screening: PHQ-9 L ittle interest or pleasure in doing things N ot at all, F eeling down, depressed, or hopeless N ot at all, T rouble falling or staying asleep, or sleeping too much N ot at all, F eeling tired or having little energy N ot at all, P oor appetite or overeating N ot at all, F eeling bad about yourself or that you are a failure, or have let yourself or your family down N ot at all, T rouble concentrating on things, such as reading the newspaper or watching television N ot at all, M oving or speaking so slowly that other people could have noticed; or the opposite, being so fidgety or restless that you have been moving around a lot more than usual N ot at all, T houghts that you would be better off or of hurting yourself in some way N ot at all, T otal Score 0 . I nterpretation and Intervention D epression Screening Findings N egative, F ollow-Up for Depression : review of PHQ-9 found negative result, no follow-up needed. C ommunication Needs: Communication Needs D oes the patient have a hearing impairment N o, D oes the patient have a vision impairment? Y es, I f yes, what is the vision impairment? G lasses, D oes the patient have a cognition impairment? N o. F all Risk: History H ave you had any falls with injury in the past year? N o, H ave you had two or more falls in the past year? N o. S ROSETTA Questions: SDOH Questions I n the past year have you been worried about losing housing? N o, I n the past year have you or any family members you live with been unable to get any of the following when it was really needed? Check all that apply: N one. S ymptom(s): patient is a 74 yo female here for visit with review of recent labs and follow up of chronic issues.bp has been good but doesn't lke the meds. tired and headaches but they are getting less and less. fingers feel like she is getting over pins and needles. the pain in rt side became worse the other day and lasted longer. took a hot shower and went to bathroom/ had colonoscopy in 2020 and had diverticulitis before. * ROS: G eneral/Constitutional: Patient denies f atigue, headache. C hange in appetite?denies. C hills d enies. F ever d enies. O phthalmologic: Blurred vision d enies. D ischarge d enies. P ain d enies. E NT: Patient denies d ecreased sense of smell, any loss of taste, sore throat. D ecreased hearing d enies. S ore throat d enies. S wollen glands?denies. E ndocrine: Cold intolerance d enies. E xcessive thirst d enies. H eat intolerance d enies. W eight loss d enies. R espiratory: Cough d enies. S hortness of breath at rest d enies. S hortness of breath with exertion d enies. W heezing d enies. C ardiovascular: Chest pain at rest d enies. C hest pain with exertion?denies. I rregular heartbeat d enies. S hortness of breath d enies. ? G astrointestinal: Abdominal pain d enies. C hange in bowel habits d enies. D iarrhea d enies. N ausea d enies. R ectal bleeding d enies. V omiting d enies . G enitourinary: Blood in urine d enies. D ifficulty urinating d enies. F requent urination d enies. U rinary incontinence D enies. M usculoskeletal: Patient denies m uscle aches. P ainful joints d enies. W eakness d enies. P eripheral Vascular: Patient denies r ed and blue toes. S kin: Dry skin d enies. I tching d enies. D enies?Mole(s), changes in moles, new moles or any lesions of concern. D enies P hotosensitivity. R joo d enies. N eurologic: Dizziness d enies. F ainting d enies. H eadache?denies. * Medical History: * Surgical History: * Hospitalization/Major Diagno stic Procedure: * Family History: F ather: 78 yrs, lung cancer. M other: 87 yrs, congestive heart failure.?4 brother(s) , 1 sister(s) - healthy. . father- lung cancer mother- chf, Denies mental health/substance abuse family history, Denies mental health/substance abuse family history, Denies mental health/substance abuse family history, Denies mental health/substance abuse family history. * Social History: T obacco Use: T obacco Use/Smoking P atient is a f ormer smoker, H ow long has it been since you last smoked? > 10 years, A dditional Findings: Tobacco Non-User F ormer smoker, currently using no form of tobacco. D rugs/Alcohol: A lcohol Screen D id you have a drink containing alcohol in the past year? Y es, H ow often did you have a drink containing alcohol in the past year? M onthly or less (1 point), H ow many drinks did you have on a typical day when you were drinking in the past year? 1 or 2 drinks (0 point), H ow often did you have 6 or more drinks on one occasion in the past year? N ever (0 point), P oints 1 , I nterpretation N egative. M iscellaneous: C affeine: yes, frequency:, 2-3 cups per day. Children: yes. Exercise: yes, walks for 1.5 miles 4 times aweek yoga. Home smoke detector use: yes. Housing: owning. Marital status: . Pets: none. Travel outside of the [place]: no. * Medications: T akingdilTIAZem HCl 60 MG Tablet as directed Orally Finacea 15 % Gel 1 application Externally ONCE A DAY IN THE EVENING Dilt-XR 120 MG Capsule Extended Release 24 Hour 1 capsule Orally Once a day Valsartan 320 MG Tablet 1 tablet Orally Once a day Taking dilTIAZem HCl 60 MG Tablet as directed Orally Taking Finacea 15 % Gel 1 application [...] Objective: * Vitals: H t: 64, Wt: 141, BMI:24.2, BP:144/72, Wt-k.96. * P ast Orders: L ab:Complete Blood Count Auto Diff (Order Date - 01/05/2025) (Collection Date & Time - 01/05/2025 07:45 AM) Value Reference Range White Blood Count 5.0 4.8-10.8 - X10*3/uL Red Blood Count 4.08 L 4.20-5.50 - X10*6/uL Hemoglobin 13.5 12.0-16.0 - g/dl Hematocrit 41.2 37.0-47.0 - % Mean Corpuscular Volume 101.0 H 80.0-98.0 - fL Mean Corpuscular Hemoglobin 33.1 H 27.0-33.0 - pg Mean Corpuscular HGB Conc 32.8 31.0-35.0 - g/ dl Red Cell Distribution Width 13.1 11.0-16.0 - % Platelet Count 272 160-400 - X10*3/uL Mean Platelet Volume 10.0 9.4-12.3 - fL Neutrophils Percent Auto 47.6 45-73 - % Imm Gran Pct Auto 0.2 0.0-0.4 - % Lymphocytes Percent Auto 40.8 H 20-40 - % Monocytes Percent Auto 8.2 2-11 - % Eosinophils Percent Auto 2.4 0-4 - % Basophils Percent Auto 0.8 0-2 - % NRBC Pct Auto 0.0 0.0-0.2 - /100WBC Neutrophils Absolute Auto 2.4 2.0-8.3 - x10* 3/uL Imm Gran Abs Auto 0.01 0.00-0.03 - X10*3/uL Lymphocytes Absolute Auto 2.0 1.2-4.9 - X10* 3/uL Monocytes Absolute Auto 0.4 0.1-1.2 - X10*3/ uL Eosinophils Absolute Auto 0.1 0.0-0.4 - X10* 3/uL Basophils Absolute Auto 0.0 0.0-0.2 - X10*3/ uL NRBC Abs Auto 0.000 0.0-0.012 - X10*3/uL L ab:Vitamin D 25-OH Total (Order Date - 01/05/2025) (Collection Date & Time - 01/05/2025 07:45 AM) Value Reference Range Vitamin D 25-OH Total 62.4 >30 - ng/mL L ab:Lipid Panel (Order Date 01/05/2025) (Collection Date & Time - 01/05/2025 07:45 AM) Value Reference Range Triglycerides 59 <150 - mg/dL Cholesterol 251 H <200 - mg/dL LDL Cholesterol Calculated 162 H <100 - mg/dL HDL Cholesterol 78 >40 - mg/dL L ab:Liver Panel (Order Date 01/05/2025) (Collection Date & Time - 01/05/2025 07:45 AM) Value Reference Range Bilirubin Direct 0.2 0.0-0.5 - mg/dL L ab:Comprehensive [place]. Panel Fast (Order Date 01/05/2025) (Collection Date & Time - 01/05/2025 07:45 AM) Value Reference Range Sodium 140 135-145 - mmol/L Bilirubin Total 0.4 0.0-1.0 - mg/dL Aspartate Amino Transferase 32 H 5-31 - U/L Alanine Aminotransferase 31 0-31 - U/L Total Protein 7.1 6.5-8.0 - g/dL Albumin Level 4.0 3.5-5.0 - g/dL Alkaline Phosphatase 106 39-117 - U/L Potassium 4.1 3.3-5.1 - mmol/L Chloride 109 H 96-108 - mmol/L Carbon Dioxide 25 22-29 - mmol/L Anion Gap 10 L 12-20 - Blood Urea Nitrogen 14 9-16 - mg/dL Creatinine 0.68 0.5-1.4 - mg/dL Estimated Glomerular Filt Rate > 60 - Glucose Fasting 81 60-99 - mg/dL Calcium 9.4 8.4-10.2 - mg/dL * Examination: G eneral Examination: GENERAL APPEARANCE: w ell developed, well nourished, in no acute distress. HEAD: n ormocephalic, atraumatic. EYES: p upils equal, round, reactive to light and accommodation, sclera non-icteric. EARS: n ormal. ORAL CAVITY: m ucosa moist. THROAT: c lear. NECK/THYROID: n abbey supple, full range of motion, no cervical lymphadenopathy, no bruits. SKIN: w arm and dry, no suspicious lesions. HEART: r egular rate and rhythm, S1, S2 normal, no murmurs.? LUNGS: c lear to auscultation bilaterally. BREASTS: N o mass, no lump. ABDOMEN: s oft, nontender, nondistended, bowel sounds present, normal, no organomegaly , no masses palpable. RECTAL EXAM: n o masses palpable, stool guaiac negative.? FEMALE GENITOURINARY: d one by senior principal. EXTREMITIES: n o clubbing, cyanosis, or edema. NEUROLOGIC: n onfocal, motor strength normal upper and lower extremities, sensory exam intact. Assessment: * Assessment: 1. E ssential hypertension - I10 (Primary) 2 . M acrocytosis without anemia - D75.89 3 . E levated LFTs - R79.89 4 . V itamin D deficiency - E55.9 5 . C olon cancer screening - Z12.11 6 . D epression screening - Z13.31 Plan: * Treatment: 2. M acrocytosis without anemia Notes: will continue to monitor 3. E levated LFTs Notes: stable, will continue to monitor 4. V itamin D deficiency Notes: stabe, will continue current regiment and will continue to monitor 5. C olon cancer screening L AB: Occult Blood, Stool, Guaiac (Collection Date & Time - 01/12/2025) N egative Value Reference Range O ccult Blood, Stool, Guaiac Neg Notes: guaiac negative??6.?Depression screening? Notes: negtive screen?? * Procedure Codes: 8 2270 TEST FOR BLOOD, FECES * Follow Up: 3 Months * * Sign off status: Completed true * Provider: Neris Stanley MD Date: 0 01/12/2025 Generated for Kwaku hernández/Jameson/eTlorrainesmitting on: 1 11/22/2024 08:38 PM EST History and Physical Notes * HPI (History of Present Illness) Category Sub-Category Detail Notes Category Not es Symptom(s) patient is a 74 yo female here for visit with review of recent labs and follow up of chronic issues.bp has been good but doesn't lke the meds. tired and headaches but they are getting less and less. fingers feel like she is getting over pins and needles. the pain in rt side became worse the other day and lasted longer. took a hot shower and went to bathroom/ had colonoscopy in 2020 and had diverticulitis before Depression Screening PHQ-9 Little interest or pleasure in doing things: Not at all Feeling down, depressed, or hopeless: No t at all Trouble falling or staying asleep, or sl eeping too much: Not at all Feeling tired or having little energy: N ot at all Poor appetite or overeating: Not at all Feeling bad about yourself o r that you are a failure, or have let yourself or your family down: Not at all Trouble concentrating on thi ngs, such as reading the newspaper or watching television: Not at all Moving or speaking so slowly that other people could have noticed; or the opposite, being so fidgety or restless that you have been moving around a lot more than usual: Not at all Thoughts that you would be b regina off or of hurting yourself in some way: Not at all Total Score: 0 Interpretation and Intervention Depression Justyna roberts Findings: Negative Follow-Up for Depression: : review of PH Q-9 found negative result, no follow-up needed SDOH Questions SDOH Questions In the past year have you been worried about losing housing?: No In the past year have you or any family members you live with been unable to get any of the following when it was really needed? Check all that apply:: None Fall Risk History Have you had any falls with injury i n the past year?: No Have you had two or more falls in the year?: No Communication Needs Communication Needs Does the patient have a hearing impairment: No Does the patient have a vision impairmen t?: Yes If yes, what is the vision impairment?: Glasses Does the patient have a cognition impair ment?: No Examination Category Sub-Category Detail Notes Category Not es General Examination GENERAL APPEARANCE: well dev eloped, well nourished, in no acute distress HEAD: normocephalic, atrau matic EYES: pupils equal, round, reactive to light and accommodation, sclera non-icteric EARS: normal THROAT: clear NECK/THYROID: neck supple, full ra nge of motion, no cervical lymphadenopathy, no bruits HEART: regular rate and rhy thm, S1, S2 normal, no murmurs LUNGS: clear to auscultatio n bilaterally ABDOMEN: soft, nontender, non distended, bowel sounds present, normal, no organomegaly , no masses palpable NEUROLOGIC: nonfocal, motor stre ngth normal upper and lower extremities, sensory exam intact SKIN: warm and dry, no marlyn picious lesions EXTREMITIES: no clubbing, cyanosi s, or edema BREASTS: No mass, no lump RECTAL EXAM: no masses palpable, stool guaiac negative FEMALE GENITOURINARY: done by senior principal ORAL CAVITY: mucosa moist
--- OUTSIDE RECORDS SUMMARY | 2025-01-20 03:34 | XMS_ITS ---
Author Organization Spencer Stanley MD Address [address] [place] [phone] Care Team Providers Care Rubber Molder Name Role Phone Spencer Stanley Primary Care Provider REASON FOR VISIT US ABD orders Encounters Encounter Location Date Provider Diagnosis Spencer Stanley MD [address] [place] [address] [address] [place] [phone] 01/20/2025 Spencer Stanley Plan Of Treatment Next Appt Details Provider Name:Spencer correa, 11/06/2025 01:45:00 PM, [address] [place] [address], [address], [phone], Provider Name:Spencer correa, 01/08/2026 07:30:00 AM, [address] [place] [address], [address], [phone], Provider Name:Spencer Mccullough madeline, 01/15/2026 09:30:00 AM, [address], [address], [place], [phone], Progress Notes * Maday ARBOLEDA MDOB:[birth year] (74 yo F)Acc No.[id number]:01/20/2025 Patient: Maday DESAI :1950 A ge:74 Y S ex:Female Address:[address] [place] [address], [place] [address] * true * Date: Generated for Kwaku hernández/Jameson/Chrissmitting on: 11/22/2024 08:36 PM EST
--- OUTSIDE RECORDS SUMMARY | 2025-02-14 10:03 | XMS_ITS ---
Author Organization Spencer Stanley MD Address [address] [place] [phone] Care Team Providers Care Can Handler Name Role Phone Spencer Stanley Primary Care Provider [phone] REASON FOR VISIT several issues Encounters Encounter Location Date Provider Diagnosis Spencer Stanley MD [address] [place] [address] [place] [phone] 02/14/2025 Spencer Stanley Plan Of Treatment Next Appt Details Provider Name:Spencer correa, 11/06/2025 01:45:00 PM, [address] [place] [address], [address], [phone], Provider Name:Spencer correa, 01/08/2026 07:30:00 AM, [address] [place] [address], [address], [phone], Provider Name:Spencer Mccullough madeline, 01/15/2026 09:30:00 AM, [address], [address], [place], [phone], Progress Notes * Maday ARBOLEDA MDOB:[birth year] (74 yo F)Acc No.[id number]:02/14/2025 Patient: Maday DESAI :1950 A ge:74 Y S ex:Female Address:[address] [place] [address], [place] [address] * true * Date: Generated for Kwaku hernández/Jameson/Chrissmitting on: 11/22/2024 08:37 PM EST
--- OUTSIDE RECORDS SUMMARY | 2025-02-23 09:15 | XMS_ITS ---
Author Organization Spencer Stanley MD Address [address] [place] [id number] Care Team Providers Care Gauge And Weigh Machine Adjuster Name Role Phone Spencer Stanley Primary Care Provider Allergies Allergen (clinical drug ingredient) Drug/Non Drug Allergy documented on EMR Reaction Allergy Type Onset Date Status epinephrine (uncoded) heart palpitations Allergy Active tetracycline tetracycline (uncoded) rash Allergy Active REASON FOR VISIT BP Medications Medication SIG (Take, Route, Frequency, Duration) Notes Start Date End Date Status dilTIAZem HCl 60 MG as directed Orally Active Finacea 15 % 1 application Promotional Marketing Agent ally ONCE A DAY IN THE EVENING Active Amoxicillin-Pot Clavulanate 875-125 MG 1 tablet Orally every 12 hrs for 7 days Active Dilt-XR 120 MG 1 capsule Orally Onc e a day Active Valsartan 320 MG 1 tablet Orally Once a day Active Tylenol 8 Hour Arthritis Pain 650 MG 2 tablets as needed Orally every 8 hrs Not-Taking Omeprazole 20 MG TAKE 1 CAPSULE BY [facility] EVERY DAY 30 MINUTES BEFORE BREAKFAST for 90 Not-Taki ng Valtrex 500 MG 1 tablet Orally ever y 12 hrs for 10 day(s) Not-Taking Vital Signs Blood pressure systolic 178 mm Hg 02/24/20 25 Blood pressure diastolic 80 mm Hg 025 Height 64 in 02/23/2025 Weight 138 lbs 02/23/2025 BMI 23.69 kg/m2 02/23/2025 weight is down 3 pounds [facility] 01-12-25 Encounters Encounter Location Date Provider Diagnosis Spencer Stanley MD [address] [place] [address] [address] [place], [place] [phone] 02/23/2025 Spencer Stanley Diverticulitis K57.9 2 ; Rash R21 and Essential hypertension I10 Assessments Encounter Date Diagnosis (ICD Code) Assessment Notes Treatment Notes Treatment Clinical Notes Section Notes 02/23/2025 Diverticulitis (ICD-10 - K57.92) 02/23/2025 Rash (ICD-10 - R21) came on while on augmentin but was on half dose and it went away so is not an allergy 02/23/2025 Essential hypertension (ICD-10 - I10) having side effects with every medicine that she takes and is making adjustments of her own and is difficult to get her bp controlled. to see link machine operator again Plan Of Treatment Medication Medication Name Sig Start Date Stop Date Notes Amoxicillin-Pot Clavulanate 875-125 MG 1 tablet Orally every 12 hrs for 7 days Treatment Notes Assessment Notes Rash came on while on jun mentin but was on half dose and it went away so is not an allergy Essential hypertension having side effec ts with every medicine that she takes and is making adjustments of her own and is difficult to get her bp controlled. to see link machine operator again Next Appt Details Provider Name:Spencer correa, 11/06/2025 01:45:00 PM, [address] [place] [address], [address], [place], [place], [phone], Provider Name:Spencer corera, 01/08/2026 07:30:00 AM, [address] [place] [address], [address], [place], [place], [phone], Provider Name:Spencer Mccullough ier, 01/15/2026 09:30:00 AM, [address], [address], [place], [place], [phone], Progress Notes * Maday ARBOLEDA MDOB:[birth year] (75 yo F)Acc No.[id number]:02/23/2025 Progress Notes Patient: Maday DESAI Provider: Neris Stanley MD :1950 A ge:74 Y S ex:Female Date:02/23/2025 Address:[address] [place] [address], [id number] Subjective: * Chief Complaints: * B P * HPI: S ymptom(s): patient is a 74 yo female here for follow up of BP. * ROS: G eneral/Constitutional: Denies C hills. D enies F atigue. D enies F ever. D enies H eadache. E NT: Denies S ore throat. R espiratory: Denies C ough. D enies S hortness of breath at rest. D enies S hortness of breath with exertion. C ardiovascular: Denies C hest pain at rest. D enies C hest pain with exertion. D enies D izziness. A dmits P alpitations. D enies S hortness of breath. G astrointestinal: Denies D iarrhea. D enies N ausea. * Medical History: * Surgical History: * Hospitalization/Major Diagno stic Procedure: * Medications: T akingAmoxicillin-Pot Clavulanate 875-125 MG Tablet 1 tablet Orally every 12 hrs dilTIAZem HCl 60 MG Tablet as directed Orally Finacea 15 % Gel 1 application Externally ONCE A DAY IN THE EVENING Dilt-XR 120 MG Capsule Extended Release 24 Hour 1 capsule Orally Once a day Valsartan 320 MG Tablet 1 tablet Orally Once a day Taking Amoxicillin-Pot Clavulanate 875-125 MG Tablet 1 tablet Orally every 12 hrs Taking dilTIAZem HCl 60 MG Tablet as directed Orally Taking Finacea 15 % Gel 1 application Externally ONCE A DAY IN THE EVENING Taking Dilt-XR 120 MG Capsule Extended Release 24 Hour 1 capsule Orally Once a day Taking Valsartan 320 MG Tablet 1 tablet Orally Once a day Not-Taking/PRNTylenol 8 Hour Arthritis Pain 650 MG Tablet Extended Release 2 tablets as needed Orally every 8 hrs Omeprazole 20 MG Capsule Delayed Release TAKE 1 CAPSULE BY MOUTH EVERY DAY 30 MINUTES BEFORE BREAKFAST Valtrex 500 MG Tablet 1 tablet Orally every 12 hrs Medication List reviewed and reconciled with the patientNot-Taking/PRN Tylenol 8 Hour Arthritis Pain 650 MG Tablet Extended Release 2 tablets as needed Orally every 8 hrs Not-Taking/PRN Omeprazole 20 MG Capsule Delayed Release TAKE 1 CAPSULE BY MOUTH EVERY DAY 30 MINUTES BEFORE BREAKFAST Not- Taking/PRN Valtrex 500 MG Tablet 1 tablet Orally every 12 hrs Medication List reviewed and reconciled with the patient * Allergies: t etracycline: rashepinephrine: heart palpitationsyes[Allergies Verified] Objective: * Vitals: H t: 64, Wt: 138, BMI:23.69, BP:178/80, Repeat BP:160/70, Wt-k.6. weight is down 3 pounds since 01-12-25. * Examination: G eneral Examination: GENERAL APPEARANCE: w ell developed, well nourished. HEAD: n ormocephalic. SKIN: g ood turgor. HEART: n o murmurs, rubs, gallops. LUNGS: n o wheezes, rales, rhonchi. ABDOMEN: s oft, nontender, nondistended, no rebound tenderness, no organomegaly. Assessment: * Assessment: 1. D iverticulitis - K57.92 (Primary) 2 . R joo - R21 3 .?Essential hypertension - I10 Plan: * Treatment: 2. R joo Notes: came on while on augmentin but was on half dose and it went away so is not an allergy ? 3. E ssential hypertension Notes: having side effects with every medicine that she takes and is making adjustments of her own and is difficult to get her bp controlled. to see link machine operator again * Procedure Codes: * * Sign off status: Completed true * Provider: Neris Stanley MD Date: 0 02/23/2025 Generated for Kwaku hernández/Jameson/Marilinitting on: 1 11/22/2024 08:39 PM EST History and Physical Notes * HPI (History of Present Illness) Category Sub-Category Detail Notes Category Not es Symptom(s) patient is a 74 yo female here for follow up of BP Examination Category Sub-Category Detail Notes Category Not es General Examination GENERAL APPEARANCE: well developed , well nourished HEAD: normocephalic HEART: no murmurs, rubs, ga llops LUNGS: no wheezes, rales, r honchi ABDOMEN: soft, nontender, non distended, no rebound tenderness, no organomegaly SKIN: good turgor
--- OUTSIDE RECORDS SUMMARY | 2025-04-13 05:15 | XMS_ITS ---
Author Organization Spencer Stanley MD Address [address] [place] [phone] Care Team Providers Care External Grinder Tender Name Role Phone Spencer Stanley Primary Care Provider Allergies Allergen (clinical drug ingredient) Drug/Non Drug Allergy documented on EMR Reaction Allergy Type Onset Date Status epinephrine (uncoded) heart palpitations Allergy Active tetracycline tetracycline (uncoded) rash Allergy Active REASON FOR VISIT 3 MO F/U Medications Medication SIG (Take, Route, Frequency, Duration) Notes Start Date End Date Status Carvedilol 6.25 MG 2 tabs Orally Twice a day Active Valtrex 500 MG 1 tablet Orally ever y 12 hrs for 10 day(s) Not-Taking Tylenol 8 Hour Arthritis Pain 650 MG 2 tablets as needed Orally every 8 hrs Not-Taking Omeprazole 20 MG TAKE 1 CAPSULE BY [facility] EVERY DAY 30 MINUTES BEFORE BREAKFAST for 90 Not-Taki ng Finacea 15 % 1 application Computator ally ONCE A DAY IN THE EVENING Active dilTIAZem HCl 60 MG 30mg AM 60mg mid day 30mg PM Orally Active Valsartan 320 MG 1 tablet Orally Once a day Active Vital Signs Blood pressure systolic 172 mm Hg 04/13/20 25 Blood pressure diastolic 86 mm Hg 025 Height 64 in 04/13/2025 Weight 138 lbs 04/13/2025 BMI 23.69 kg/m2 04/13/2025 Encounters Encounter Location Date Provider Diagnosis Spencer Stanley MD [address] [place] [address] [place] [phone] 04/13/2025 Spencer Stanley Essential hypertension I10 and Bakers cyst, right M71.21 Assessments Encounter Date Diagnosis (ICD Code) Assessment Notes Treatment Notes Treatment Clinical Notes Section Notes 04/13/2025 Essential hypertension (ICD-10 - I10) has just had a change in her bp meds, will continue current regiment 04/13/2025 Bakers cyst, right (ICD-10 - M71.21) THE ORDER WAS FAXED TO [facility] FOR SCHEDULING Plan Of Treatment Medication Medication Name Sig Start Date Stop Date Notes Carvedilol 6.25 MG 2 tabs Orally Twice a day dilTIAZem HCl 60 MG 30mg AM 60mg mid day 30mg PM Orally Valsartan 320 MG 1 tablet Orally Once a day Treatment Notes Assessment Notes Essential hypertension has just had a ch dora in her bp meds, will continue current regiment Bakers cyst, right THE ORDER WAS FAXED TO [facility] FOR SCHEDULING Pending Test Test Name Order Date US LEG RT VENOUS DOPPLER 04/13/2025 Next Appt Details Provider Name:Spencer correa, 11/06/2025 01:45:00 PM, [address] [place] [address], [address] [place] [address], [phone], Provider Name:Spencer correa, 01/08/2026 07:30:00 AM, [address] [place] [address], [address] [place] [address], [phone], Provider Name:Spencer correa, 01/15/2026 09:30:00 AM, [address] [place] [address], [address], [phone], Progress Notes * Maday ARBOLEDA MDOB:[birth year] (74 yo F)Acc No.[id number]:04/13/2025 Progress Notes Patient: Maday DESAI Provider: Neris Stanley MD :1950 A ge:74 Y S ex:Female Date:04/13/2025 Address:[address] [place] [address] [place], [id number] Subjective: * Chief Complaints: * 3 MO F/U * HPI: S ymptom(s): patient is a 74 yo female here for 3 month follow up visit. * ROS: G eneral/Constitutional: Denies C hills. D enies F atigue. D enies F ever. D enies H eadache. E NT: Denies S ore throat. R espiratory: Denies C ough. D enies S hortness of breath at rest. D enies S hortness of breath with exertion. G astrointestinal: Denies D iarrhea. D enies N ausea. M usculoskeletal: Patient complaining of p ain behind knee. * Medical History: * Surgical History: * Hospitalization/Major Diagno stic Procedure: * Medications: T akingCarvedilol 6.25 MG Tablet 2 tabs Orally Twice a day dilTIAZem HCl 60 MG Tablet 30mg AM 60mg mid day 30mg PM Orally Finacea 15 % Gel 1 application Externally ONCE A DAY IN THE EVENING Valsartan 320 MG Tablet 1 tablet Orally Once a day Taking Carvedilol 6.25 MG Tablet 2 tabs Orally Twice a day Taking dilTIAZem HCl 60 MG Tablet 30mg AM 60mg mid day 30mg PM Orally Taking Finacea 15 % Gel 1 [...] 1 tablet Orally every 12 hrs Not-Taking/PRN Tylenol 8 Hour Arthritis Pain 650 MG Tablet Extended Release 2 tablets as needed Orally every 8 hrs Not-Taking/PRN Omeprazole 20 MG Capsule Delayed Release TAKE 1 CAPSULE BY MOUTH EVERY DAY 30 MINUTES BEFORE BREAKFAST Not-Taking/PRN Valtrex 500 MG Tablet 1 tablet Orally every 12 hrs DiscontinuedDilt-XR 120 MG Capsule Extended Release 24 Hour 1 capsule Orally Once a day Medication List reviewed and reconciled with the patientDiscontinued Dilt-XR 120 MG Capsule Extended Release 24 Hour 1 capsule Orally Once a day Medication List reviewed and reconciled with the patient * Allergies: t etracycline: rashepinephrine: heart palpitationsyes[Allergies Verified] Objective: * Vitals: H t: 64, Wt: 138, BMI:23.69, BP:172/86, Repeat BP:160/80, Wt-k.6. * Examination: G eneral Examination: GENERAL APPEARANCE: w ell developed, well nourished, female. HEAD: n ormocephalic. SKIN: g ood turgor/ left great toe with some dark color of her nail laterally. HEART: n o murmurs, rubs, gallops, regular rate and rhythm.? LUNGS: c lear to auscultation bilaterally, clear anteriorly and posteriorly. EXTREMITIES: p ain and swelling behind rt knee. ? Assessment: * Assessment: 1. E ssential hypertension - I10 (Primary) 2 . B ruth cyst, right - M71.21? Plan: * Treatment: 2. B ruth cyst, right I maging: US LEG RT VENOUS DOPPLER Notes: THE ORDER WAS FAXED TO [facility] FOR SCHEDULING * Procedure Codes: * * Sign off status: Completed true * Provider: Neris Stanley MD Date: 0 04/13/2025 Generated for Kwaku hernández/Jameson/Yousuf on: 11/22/2024 08:38 PM EST History and Physical Notes * HPI (History of Present Illness) Category Sub-Category Detail Notes Category Not es Symptom(s) patient is a 74 yo female here for 3 month follow up visit Examination Category Sub-Category Detail Notes Category Not es General Examination GENERAL APPEARANCE: well dev eloped, well nourished, female HEAD: normocephalic HEART: no murmurs, rubs, ga llops, regular rate and rhythm LUNGS: clear to auscultatio n bilaterally, clear anteriorly and posteriorly SKIN: good turgor/ left gr eat toe with some dark color of her nail laterally EXTREMITIES: pain and swelling be hind rt knee
--- OUTSIDE RECORDS SUMMARY | 2025-09-01 08:45 | XMS_ITS ---
Author Organization Spencer Stanley MD Address [address] [place] [id number] Care Team Providers Care Energy Advisor Name Role Phone Spencer Stanley Primary Care Provider [phone] Allergies Allergen (clinical drug ingredient) Drug/Non Drug Allergy documented on EMR Reaction Allergy Type Onset Date Status epinephrine (uncoded) heart palpitations Allergy Active tetracycline tetracycline (uncoded) rash Allergy Active REASON FOR VISIT several issues to discuss Medications Medication SIG (Take, Route, Frequency, Duration) Notes Start Date End Date Status Valtrex 500 MG 1 tablet Orally ever y 12 hrs for 10 day(s) Not-Taking Omeprazole 20 MG TAKE 1 CAPSULE BY MOUTH EVERY DAY 30 MINUTES BEFORE BREAKFAST for 90 Not-Taking Tylenol 8 Hour Arthritis Pain 650 MG 2 tablets as needed Orally every 8 hrs Not-Taking Carvedilol 12.5 MG 1 tab Orally Twice a day Active Valsartan 320 MG 1 tablet Orally Once a day for 30 days Active Finacea 15 % 1 application Externally ONCE A DAY IN THE EVENING Active Spironolactone 25 MG 1tab and 0.5 tab on ce a day Orally Once a day Active Magnesium 250 MG 1 tablet with a meal Orally twice a day Active Immunizations Vaccine Route Administration Date Status Comme nts Influenza High Dose IM Intramuscular 09/01/2025 Administer ed Vital Signs Blood pressure systolic 138 mm Hg 09/01/20 25 Blood pressure diastolic 66 mm Hg 025 Height 64 in 09/01/2025 Weight 140 lbs 09/01/2025 BMI 24.03 kg/m2 09/01/2025 Encounters Encounter Location Date Provider Diagnosis Spencer Stanley MD [address] [place], [place] [phone] 09/01/2025 Spencer Stanley Essential hypertensi on I10 ; Age-related osteoporosis without current pathological fracture M81.0 and Encounter for administration of vaccine Z23 Assessments Encounter Date Diagnosis (ICD Code) Assessment Notes Treatment Notes Treatment Clinical Notes Section Notes 09/01/2025 Essential hypertension (ICD-10 - I10) richard monk contnue current regiment/ her bps are running low but her director project management did not want to change anything at the present time. every medicine change causes compications for her so he wants to go very slowly and i feel that i should not make any adjustments and she agrees. i have explained at length that she has side effects from every type of blood pressure med and that she has to determine if she wants to treat her blood pressure and try to not pay attention to all the unusual symptoms or not take her meds and risk a heart attack or stroke. she wants to stay on the meds.will leave any changes to dr phillips 09/01/2025 Age-related osteoporosis without current pathological fracture (ICD-10 - M81.0) she had been on the bisphosphenates and had side effects and is worried about any roasterman side effects on the other meds. will let her decide with her endocrine doctor 09/01/2025 Encounter for administration of vaccine (ICD-10 - Z23) Plan Of Treatment Medication Medication Name Sig Start Date Stop Date Notes Valsartan 320 MG 1 tablet Orally Once a day for 30 days Treatment Notes Assessment Notes Essential hypertension richard monk contn ue current regiment/ her bps are running low but her director project management did not want to change anything at the present time. every medicine change causes compications for her so he wants to go very slowly and i feel that i should not make any adjustments and she agrees. i have explained at length that she has side effects from every type of blood pressure med and that she has to determine if she wants to treat her blood pressure and try to not pay attention to all the unusual symptoms or not take her meds and risk a heart attack or stroke. she wants to stay on the meds.will leave any changes to dr phillips Age-related osteoporosis wit hout current pathological fracture she had been on the bisphosphenates and had side effects and is worried about any roasterman side effects on the other meds. will let her decide with her endocrine doctor Next Appt Details Follow Up: 2 Months, Reason: Provider Name:Spencer correa, 11/06/2025 01:45:00 PM, [address] [place] [address], [address], [phone], Provider Name:Spencer correa, 01/08/2026 07:30:00 AM, [address] [place] [address], [address], [phone], Provider Name:Spencer correa, 01/15/2026 09:30:00 AM, [address] [place] [address], [address], [phone], Progress Notes * Maday ARBOLEDA MDOB:[birth year] (75 yo F)Acc No.[id number]:09/01/2025 Progress Notes Patient: Maday DESAI Provider: Neris Stanley MD :1950 A ge:75 Y S ex:Female Date:09/01/2025 Address:[address] [place] [address], [phone] Subjective: * Chief Complaints: * S everal issues to discuss * HPI: S ymptom(s): patient is a 75 yo female here to discus several issues,/ NOT feeling well for a year. last few weeks not perfect but better. bp is starting to get better. after taking the valsartant gets pressure in ears and stomach. * ROS: G eneral/Constitutional: Denies C hills. D enies F atigue. D enies F ever. D enies H eadache. E NT: Denies S ore throat. R espiratory: Denies C ough. D enies S hortness of breath at rest. D enies S hortness of breath with exertion. G astrointestinal: Denies D iarrhea. D enies N ausea. f eels like body is vibrating. has hair loss. has renal artery stenosis. upper back gets tired and has to lay down and stretch it out. maybe would benefit from statins.doesn't feel depressed. had depression in past. bp is running 120 to 106. systolic. * Medical History: * Surgical History: * Hospitalization/Major Diagno stic Procedure: * Medications: T akingMagnesium 250 MG Tablet 1 tablet with a meal Orally twice a day Spironolactone 25 MG Tablet 1tab and 0.5 tab once a day Orally Once a day Finacea 15 % Gel 1 application Externally ONCE A DAY IN THE EVENING Carvedilol 12.5 MG Tablet 1 tab Orally Twice a day Valsartan 320 MG Tablet 1 tablet Orally Once a day Taking Magnesium 250 MG Tablet 1 tablet with a meal Orally twice a day Taking Spironolactone 25 MG Tablet 1tab and 0.5 tab once a day Orally Once a day Taking Finacea 15 % Gel 1 application Externally ONCE A DAY IN THE EVENING Taking Carvedilol 12.5 MG Tablet 1 tab Orally Twice a day Taking Valsartan 320 MG Tablet [...] 12 hrs DiscontinueddilTIAZem HCl 60 MG Tablet 30mg AM 60mg mid day 30mg PM Orally Discontinued dilTIAZem HCl 60 MG Tablet 30mg AM 60mg mid day 30mg PM Orally * Allergies: t etracycline: rashepinephrine: heart palpitationsyes[Allergies Verified] Objective: * Vitals: H t: 64, Wt: 140, BMI:24.03, BP:138/66, Wt-k.5. * Examination: G eneral Examination: GENERAL APPEARANCE: w ell developed, well nourished. HEAD: n ormocephalic. SKIN: g ood turgor. HEART: r egular rate and rhythm, no murmurs, rubs, gallops.? LUNGS: n o wheezes, rales, rhonchi, good air movement, clear to auscultation bilaterally. Assessment: * Assessment: 1. E ssential hypertension - I10 (Primary) 2 . A ge-related osteoporosis without current pathological fracture - M81.0 3 . E ncounter for administration of vaccine - Z23 Plan: * Treatment: 2. A ge-related osteoporosis without current pathological fracture Notes: she had been on the bisphosphenates and had side effects and is worried about any roasterman side effects on the other meds. will let her decide with her endocrine doctor * Immunizations: Influenza High Dose : 0.5 mL (Dose No:1) (Route: Intramuscular) given by Elyse Edwards , Office Staff on Left Deltoid * Procedure Codes: 9 0662 FLU VACC PRSV FREE INC [id number] ADMN FLU VAC NO FEE SCHED SAME DAY * Follow Up: 2 Months * * Sign off status: Completed true * Provider: Neris Stanley MD Date: Generated for Kwaku hernández/Jameson/Marilinitting on: 11/22/2024 08:38 PM EST History and Physical Notes * HPI (History of Present Illness) Category Sub-Category Detail Notes Category Not es Symptom(s) patient is a 75 yo female here to discus several issues,/ NOT feeling well for a year. last few weeks not perfect but better. bp is starting to get better. after taking the valsartant gets pressure in ears and stomach Examination Category Sub-Category Detail Notes Category Not es General Examination GENERAL APPEARANCE: well developed , well nourished HEAD: normocephalic HEART: regular rate and rhy thm, no murmurs, rubs, gallops LUNGS: no wheezes, rales, r honchi, good air movement, clear to auscultation bilaterally SKIN: good turgor
--- NOTE | 2025-09-22 14:11 | HO.NEPHOV_ITS ---
Vital Signs 09/22/25 14:14 Height 5 ft 3 in Weight 141 lb 2 oz BMI 25.0 BP 140/70 H Blood Pressure Location Rt brachial Pulse 82 Pulse Source Pulse Oximeter Pulse Oximetry (%) 98 Oxygen Delivery Method Room Air Intake Visit Reasons: Review BP meds Equipment Operating Engineer Required: No Accompanied by: Self / Same As Patient Allergies tetracycline (TETRACYCLINE) Allergy (Unknown, Verified 09/22/25 14:13) Rash, itchy epinephrine Allergy (Unknown, Uncoded 08/24/25 09:51) heart palpitations HPI Comments Details: Maday was seen in follow up for hypertension. She is known to hypertension for a while and has been on hydrochlorothiazide bit she had been taking regularly without much side effects. She also is known to renal calculi. Her blood pressure started getting fluctuant, more so after COVID infection. She had to come off hydrochlorothiazide given hyponatremia, which has normalized now. Subsequently she was started on valsartan and the dose of which was maximized now. She had been tolerating that without much side effects. Her blood pressure control continued to be suboptimal with intermittent resting tachycardia and chest pressure symptoms without any reason. She was started on metoprolol of the time but she developed emotional lability as well as tiredness and it was discontinued. She has been started on 2.5 mg amlodipine at that time. She has been having some headache/ foggy head which she was attributing to amlodipine. She is not known to have any underlying thyroid disorders. She has no history of renal failure, liver disease or heart failure. She denied any diagnosis of depression but gets anxious at times. She is not known to have any hyperkalemia, edema. She denies drinking excessive fluid or alcohol. She has no history of any malignancy. Diltiazem was eventually added to the regimen but she was not tolerating the higher dose. Dose was reduced recently and she felt better but still complaining about ringing in the ear and variety of symptoms intermittently . She has seen cardiology. Her dose of short acting Diltiazem was adjusted at the last visit. She still C/O unexplainable intermittent inconsistent symptoms which she tries to attribute to BP medications. She feels that some of her symptoms are due to Diltiazem. Her BP is better and her symptoms are better after cutting back on Diltiazem and when Spironolactone has been introduced. Doppler of renal arteries showed right renal artery significant stenosis greater than 60% with no apparent stenosis of left renal artery & mildly elevated resistive indices of left renal parenchyma. Last week her BP had dropped( with development of tiredness) and her spironolactone has been cut back. She had been feeling good for last month but has been having relative lower blood pressures after she takes ARB in the morning. Currently she feels her head his heavy with tiredness especially after taking morning valsartan. [facility] Medical History Hypertension History of kidney stones Hiatal hernia Osteoporosis GERD (gastroesophageal reflux disease) Surgical History History of blepharoplasty History of hammer toe correction Hx of hysterectomy History of esophagogastroduodenoscopy (EGD) Hx of colonoscopy Family History Mother Hypertension Kidney stone Father Cancer Social History Do you presently have visiting nurse or other home services: No Alcohol intake: never Patient Tobacco Use Status: Former Tobacco user Review of Systems Const All systems reviewed & are unremarkable except as noted in HPI and below Physical Exam Vital Signs: Last Vital Signs Pulse 82 09/22/25 14:14 BP 140/70 H 09/22/25 14:14 Pulse Ox 98 09/22/25 14:14 Oxygen Delivery Method Room Air 09/22/25 14:14 BMI result Body Mass Index 25.0 Const General: comfortable and no acute distress Orientation/consciousness: patient oriented x3 HEENT Head: Yes normocephalic Mouth: Normal oral and palatal mucosa present Eyes EOM: EOMs intact bilaterally Neck Neck: Yes supple Resp Auscultation: clear to auscultation bilaterally Cardio Jugular venous distension: no JVD Rate: regular rate GI Palpation (GI): Soft to palpation Auscultation: normal bowel sounds General: Yes no CVA tenderness Back/Spine/Pelvis Back: no CVA tenderness Skin General skin exam: no rashes or lesions noted Neuro General: patient oriented x3 and moves all extremities Extrem General: Yes no pedal edema Results Reviewed Nephrology Results: Sodium, (135-145) 135 mmol/L 08/09/25 Potassium, (3.3-5.1) 4.4 mmol/L 08/09/25 Chloride, (96-108) 102 mmol/L 08/09/25 Carbon Dioxide, (22-29) 27 mmol/L 08/09/25 BUN, (9-16) 17 mg/dL H 08/09/25 Creatinine, (0.5-1.4) 0.63 mg/dL 08/09/25 Calcium, (8.4-10.2) 9.4 mg/dL 08/09/25 Renal US 06/21/25 Assessment & Plan Assessment & Plan (1) Hypertension: Code(s): I10 - Essential (primary) hypertension Category: Medical Qualifiers: Hypertension type: primary hypertension Qualified Code(s): I10 - Essential (primary) hypertension (2) Hyponatremia: Code(s): E87.1 - Hypo-osmolality and hyponatremia Category: Medical Plan Maday has longstanding hypertension. She did not tolerate metoprolol due to development of emotional lability. She is currently on valsartan 320 mg daily which I reduced to 160 mg . If her blood pressure starts going up after doing that, I shall increase her valsartan to 240 mg.(she has vascular disease causing hypertension and likely has arterial stenosis in her cerebral vessels(no studies have been done yet). I asked her to keep off hydrochlorothiazide for now ( H/O Hyponatremia). She has history of renal calculi. She is off fluid restriction . She has strong family history of hypertension. (She denied any other vascular risk factors or active vascular disease). Doppler of her renal arteries showed right renal artery significant stenosis greater than 60% with no apparent stenosis of left renal artery & mildly elevated resistive indices of left renal parenchyma. For now, he can continue Valsartan 160 mg daily in the morning along with carvedilol 12.5 mg bid. She could continue Spironolactone 25 mg AM and 12.5 mg PM . She should continue low sodium in the diet. Labs had been ordered and is pending. Answered all questions. Coding Level of Care Code Est Pt Level 4 (40053) Diagnoses Primary hypertension I10 Hypertension type: primary hypertension Hyponatremia E87.1
[2025-09-22 14:14] VITALS: BP 140/70; PULSE 82; O2SAT 98; BMI 25.0
--- OUTSIDE RECORDS SUMMARY | 2025-09-22 20:37 | XMS_ITS | Clinical Summary ---
Author Organization [facility] Address [address] [address] Phone Care Team Providers Care Director [employer] Name Role Phone Spencer Stanley MD Primary [...] on patient's age to complete this topic IPV VACCINES Aged Out No longer eligi ble based on patient's age to complete this topic MENINGOCOCCAL VACCINES (ACWY) Aged Out No longer eligible based on patient's age to complete this topic MENINGOCOCCAL VACCINES (B) Aged Out N o longer eligible based on patient's age to complete this topic Medical Devices Not on file Insurance MEDICARE PART A & B [facility] MEDEX SUPPLEMENT MEDICARE PART A & B [place] [email or web address] MEDEX SUPPLEMENT MEDICARE PART A & B [employer] MEDEX SUPPLEMENT Member Subscriber Plan / Payer ( fective 2013-Present) Name:Maday Draper Relation to Subscriber:Self Name:Maday Draper Payer ID:[id number] (NAIC) Type:Indemnity Address: [place] [id number] MEDICARE PART A & B [employer] MED[employer] SUPPLEMENT MEDICARE PART A & B [employer] MED[employer] SUPPLE[employer] MEDICARE PART A & B [employer] MEDEX SUPPLEMENT Care Teams Director [employer] Relationship Specialty Start Date End Date Spencer Stanley MD [address] [place] [address] [facility] [place] [address] PCP - General Internal Medicine 07/19/24 Additional Source Comments The information contained in this document represents components of the legal health record. It is not the complete legal health record.[facility]
--- OUTSIDE RECORDS SUMMARY | 2025-09-22 20:38 | XMS_ITS | Patient Health Record ---
[facility] Organization [facility] Address [address] [facility] [place] [address] Care Team Providers Care Cigar Head Puncher Name Role Phone Spencer Stanley MD Primary Care Provider Sarabjit Caballero Unavailable [phone] Perla Diop Unavailable [phone] Allergies Allergen (clinical drug ingredient) Drug/Non Drug [...] W/U Status Risk Notes Problem Plantar wart (81613368) Plantar wart (B07.0) Active confirmed Problem Onychomycosis (613835414) Onychomycosis (B35.1) Active confirmed Vital Signs Blood pressure diastolic 78 mm Hg 08/11/2025 Height 5 ft 4 in in 08/11/2025 Blood pressure systolic 120 mm Hg 08/11/2025 Weight 137 lbs 08/11/2025 BMI 23.51 kg/m2 08/11/2025 Procedures Procedure Date Ordered Date Performed Result Body Sit e 38194-[id number] NAIL, 1-5 11/15/2024 N/A 82032-Pejp Destruction, 1-14 11/15/2024 N/A Encounters Encounter Location Date Provider Diagnosis [address] [address] 11/15/2024 Sarabjit Manriquez Pain in left toe(s) M79.675 ; Onychomycosis B35.1 ; Right foot pain M79.671 ; Plantar wart B07.0 ; Pain in right ankle and joints of right foot M25.571 ; Bursitis of intermetatarsal bursa of right foot M77.51 and Metatarsalgia, right foot M77.[address] [facility] [address] 08/11/2025 Perla Poncea Right foot pain M79. 671 and Plantar wart B07.[address] [facility] [address] 11/15/2024 Sarabjit Manriquez [facility] [place] [address] [place] [address] 11/17/2024 Sarabjit Manriquez Assessments Encounter Date Diagnosis [...] X ray : Foot, right 3V 09/25/2022 [id number] NAIL, 1-5 11/15/2024 81562-Bcdt Destruction, 1-14 11/15/2024 [id number]-Qyeqemvf Plate 12/08/2017 59265- Debride <25 sq cm 12/25/2017 Insurance Providers Payer Name Payer Address Payer Phone Subscriber Number Group Number Insured Name Patient Relationship to Insured Coverage Start Date Coverage End Date Medicare [employer] [address] [place] [address] [id number] Maday Draper Self - patient is the insured [employer] [facility] [address] [place] [address] [id number] Maday Draper Self - patient is the insured Medical (General) History Medical History History ICD Code Diverticulosis Measles Mumps Chicken pox Osteoporosis Reflux ( GERD) Hypertension Elevated LFTs Vitamin D deficiency Hypercalciuria Tubular adenoma of colon Cataracts Surgical History Surgery Date(Month/Year) hysterectomy 1986 ilana Sheehan
--- OUTSIDE RECORDS SUMMARY | 2025-09-22 20:39 | XMS_ITS | Patient Health Record ---
Author Organization Spencer Stanley MD Address [address] [place] [phone] Care Team Providers Care Reconciliation Analyst Name Role Phone Spencer Stanley Primary Care Provider Allergies Allergen (clinical drug ingredient) Drug/Non Drug Allergy documented on EMR Reaction Allergy Type Onset Date Status epinephrine (uncoded) heart palpitations Allergy Active tetracycline tetracycline (uncoded) rash Allergy Active Results Component Value Reference Range Notes Complete Blood Count Auto Di ff Reviewed date:01/05/2025 04:35:02 PM Interpretation: Performing Lab:[facility], [address] [place] [phone] Notes/Report: White Blood Count 5.0 4.8-10.8 X10*3/uL [...] NRBC Abs Auto 0.000 0.0-0.012 X10*3/uL Comprehensive [place]. Panel Fa st Reviewed date:01/05/2025 12:43:17 PM Interpretation: Performing Lab:[facility], [address] [place] [phone] Notes/Report: Sodium 140 135-145 mmol/L Potassium 4.1 [...] Panel Reviewed date:01/05/2025 12:43:41 PM Interpretation: Performing Lab:[address] [address] Notes/Report: Bilirubin Direct 0.2 0.0-0.5 mg/dL Lipid Panel Reviewed date:01/05/2025 12:43:26 PM Interpretation: Performing Lab:[address] [address] Notes/Report: Triglycerides 59 <150 mg/dL Desirable Triglyceride: [...] Total Reviewed date:01/05/2025 12:43:34 PM Interpretation: Performing Lab:[address] [address] Notes/Report: Vitamin D 25-OH Total 62.4 >30 [...] t Reviewed date:01/12/2025 11:52:13 AM Interpretation: Performing Lab:[facility], [address] [place] [phone] Notes/Report: Urine, Clean Catch Color Urine Yellow Appearance Urine Clear PH 6.5 5.0-9.0 Glucose Urine UA Negative Negative mg/dL Urine Blood Negative Negative Specific [place] - Urine 1.010 1.005-1.025 Urine Protein Negative Neg-Trace mg/dL Urine Ketones Negative Negative mg/dL Nitrite Urine Negative Negative Leukocyte Esterase Urine Negative Negative RBC Urine 0-2 0-2 /HPF WBC Urine 0-5 0-5 /HPF Squamous Epithelial Cell Urine 0-2 0-2 /HPF Bacteria Urine None Seen None Seen Hyaline Casts Urine 0-2 0-2 /LPF Electrolytes Reviewed date:09/22/2024 06:06:11 PM Interpretation: Performing Lab:[facility], [address] [place] [phone] Notes/Report: Sodium 137 135-145 mmol/L Potassium 4.4 3.3-5.1 mmol/L Chloride 105 96-108 mmol/L Carbon Dioxide 29 22-29 mmol/L Anion Gap 7 12-20 Uric Acid Reviewed date:09/22/2024 06:05:36 PM Interpretation: Performing Lab:[address] [address] Notes/Report: Uric Acid 2.6 2.4-5.7 mg/dL TSH reflex Free T4 Reviewed date:09/22/2024 06:05:26 PM Interpretation: Performing Lab:[address] [phone] Notes/Report: TSH reflex Free T4 1.71 0.32-4.0 uIU/mL Aldosterone Reviewed date:10/03/2024 12:34:25 PM Interpretation: Performing Lab:[facility], [address] [place] [phone] Notes/Report: Aldosterone TNP Renin Reviewed date:09/30/2024 04:47:30 PM Interpretation: Performing Lab:[facility], [address] [place] [phone] Notes/Report: Renin 2.86 0.25-5.82 ng/mL/h This test was developed and its analytical performance characteristics have been determined by [employer] [place], [place]. It has not been cleared or approved by the U.S. Food and Drug Administration. This assay has been validated pursuant to the CLIA regulations and is used for clinical purposes. THIS TEST WAS PERFORMED AT: [employer] [place] [address] [place], [place] PAT CUMMINGS MD,PHD Aldost/Renin Reviewed date:10/03/2024 12:35:02 PM Interpretation: Performing Lab:[facility], [address] [place] [phone] Notes/Report: Aldosterone 2 see note ng/dL Unable to flag abnormal result(s), please refer to reference range(s) below: Adult Reference Ranges for Aldosterone, LC/MS/MS: Upright 8:00 - 10:00 am < or = 28 ng/dL Upright 4:00 - 6:00 pm < or = 21 ng/dL Supine 8:00 - 10:00 am 3 - 16 ng/dL THIS TEST WAS PERFORMED AT: [employer] [address] [place], [place] PAT CUMMINGS MD,PHD Plasma Renin Activity 2.58 0.25-5.82 ng/mL/h Aldosterone/Renin Ratio 0.8 0.9-28.9 Ratio This test was developed and its analytical performance characteristics have been determined by [employer] [place], [place]. It has not been cleared or approved by the U.S. Food and Drug Administration. This assay has been validated pursuant to the CLIA regulations and is used for clinical purposes. THIS TEST WAS PERFORMED AT: [employer] [place] [address] [place] [address] PAT CUMMINGS MD,PHD Metanephrines, Plasma Reviewed date:09/29/2024 05:20:12 PM Interpretation: Performing Lab:[facility], [address] [place] [phone] Notes/Report: Metanephrine, Free 47 <=57 pg/mL This test was developed and its analytical performance characteristics have been determined by [employer] [place], [place]. It has not been cleared or approved by the U.S. Food and Drug Administration. This assay has been validated pursuant to the CLIA regulations and is used for clinical purposes. Normetanephrines, Free 208 <=148 pg/mL This test was developed and its analytical performance characteristics have been determined by [employer] [place], [place]. It has not been cleared or approved by the U.S. Food and Drug Administration. This assay has been validated pursuant to the CLIA regulations and is used for clinical purposes. Total Metanephrine, Free 255 <=205 pg/mL For additional information, please refer to http://education.Webvanta.Frograms/faq/Me tFractFree (This link is being provided for [...] analytical performance characteristics have been determined by [employer] [place], [place]. It has not been cleared or approved by the U.S. Food and Drug Administration. This assay has been validated pursuant to the CLIA regulations and is used for clinical purposes. THIS TEST WAS PERFORMED AT: [employer] [address] [place] [address] PAT CUMMINGS MD,PHD Osmolality Urine Reviewed date:09/22/2024 03:17:39 PM Interpretation: Performing Lab:[facility], [address] [place] [phone] Notes/Report: Osmolality Urine 194 564-1297 mosm/kg Sodium Urine Random Reviewed date:09/22/2024 12:50:43 PM Interpretation: Performing Lab:[facility], [address] [place] [phone] Notes/Report: Sodium Urine Random 21.0 [employer] Pnl, Serum Reviewed date:09/27/2024 08:14:33 PM Interpretation: Performing Lab:[facility], [address] [place] [phone] Notes/Report: IgG 915 623-7745 mg/dL IgA 308 70-320 mg/dL IgM 95 50-300 mg/dL THIS TEST WAS PERFORMED AT: [employer] [address] [place] [phone] SARA BARAJAS MD [employer]ation Interpretation SEE NOTE Normal pattern. No monoclonal proteins detected. Cortisol Random Reviewed date:09/22/2024 05:36:07 PM Interpretation: Performing Lab:[facility], [address] [place] [phone] Notes/Report: Cortisol Random 11.8 Reference Range*: Before 10 am 6.2-19.4 ug/dL After 5 pm 2.3-11.9 ug/dL *Please interpret above results accordingly. This test was performed using the Boyd chemiluminescent method. Values obtained from different assay methods cannot be used interchangeably. Patients receiving fludrocortisone, prednisolone or prednisone may show artificially elevated cortisol values due to cross-reactivity. Ramos Pichardo Reviewed date:01/05/2025 12:42:55 PM Interpretation: Performing Lab:[facility], [address] [place] [phone] Notes/Report: Ramos Pichardo See Note Specimen held untested for 24 hours; Call to request Chemistry testing. MM tomosynthesis screening B I Reviewed date:05/01/2025 05:32:34 PM Interpretation: Performing Lab: Notes/Report: [address] [place] [address] Mammography Report Signed Patient: Maday Arboleda MR#: [id number] : 1950 Acct:[id number] Age/Sex: 74 / F ADM Date: 04/25/25 Loc: HO.MAMMO Attending Dr: Spencer Stanley MD Ordering Physician: Spencer Stanley MD Results: 1Ne gative Date of Service: 04/25/25 Follow Up: 1 Year From Orig ina Mammogram Procedure(s): MM tomosynthesis screening BI Accession Number(s): [id number] cc: Spencer Stanley MD EXAMINATION: MM SCREENING [...] signed by Francine Lopez DO in OV> 04/30/256 DD/ 1303 TD/TT: 04/25/25 1325 Wood Grainer: [address] [place] [address] Mammography Report Signed Patient: Maday Arboleda MR#: [id number] : 1950 Acct:[id number] Age/Sex: 74 / F ADM Date: 04/25/25 Loc: HO.MAMMO Attending Dr: Spencer Stanley MD Ordering Physician: Spencer Stanley MD Results: 1Ne gative Date of Service: 04/25/25 Follow Up: 1 Year From Orig inal Mammogram Procedure(s): MM tomosynthesis screening BI Accession Number(s): [id number] cc: Spencer Stanley MD EXAMINATION: MM SCREENING [...] DO Signed By: <Electronically signed by Francine oLpez DO in OV> 04/30/25 2136 DD/ 1303 TD/TT: 04/25/25 1325 Wood Grainer: venous duplex AAYUSH RT Reviewed date:05/10/2025 06:16:57 PM Interpretation: Performing Lab: Notes/Report: [address] [address] Ultrasound Report Signed Patient: Maday Arboleda MR#: [id number] : 1950 Acct:[id number] Age/Sex: 74 / F ADM Date: 05/10/25 Loc: .US Attending Dr: Spencer Stanley MD Ordering Physician: Spencer Stanley MD Date of Service: 05/10/25 Procedure(s): US venous duplex LE RT Accession Number(s): [id number] cc: Spencer Stanley MD EXAMINATION: US TRIPLEX [...] 11:16 AM EDT RP Dictated By: Darion Watson MD Signed By: <Electronically signed by Darion Hoffman MD in OV> 05/10/25 1116 DD/ 1052 TD/TT: 05/10/25 1102 Wood Grainer: [place] [address] Ultrasound Report Signed Patient: Maday Arboleda MR#: [id number] : 1950 Acct:[id number] Age/Sex: 74 / F ADM Date: 05/10/25 Loc: .US Attending Dr: Spencer Stanley MD Ordering Physician: Spencer Stanley MD Date of Service: 05/10/25 Procedure(s): US gale ous duplex LE RT Accession Number(s): [id number] cc: Spencer Stanley MD EXAMINATION: US TRIPLEX [...] 05/10/25 1116 DD/ 1052 TD/TT: 05/10/25 1102 Wood Grainer: US renal doppler Reviewed date:06/29/2025 04:24:55 PM Interpretation: Performing Lab: Notes/Report: [facility] [address] [place] [address] [place] [address] Ultrasound Report Signed Patient: Maday Arboleda MR#: [id number] : 1950 Acct:[id number] Age/Sex: 74 / F ADM Date: 06/21/25 Loc: .HMGCX Attending Dr: Favian Nichols MD Ordering Physician: Favian Nichols MD Date of Service: 06/21/25 Procedure(s): US renal doppler Accession Number(s): [id number] cc: Spencer Stanley MD; Favian Nichols MD CLINICAL HISTORY: I10 - Essential (primary) hypertension Renal duplex ultrasound Comparison: None provided Technique: Real time duplex ultrasound imaging was performed by the campus administrative assistant. Multiple signs and displays sales representative static images were saved for [...] 06/23/25 1203 DD/ 1248 TD/TT: 06/21/25 1248 Wood Grainer: [facility] [address] [place] [address] [place] [address] Ultrasound Report Signed Patient: Maday Arboleda MR#: [id number] : 1950 Acct:[id number] Age/Sex: 74 / F ADM Date: 06/21/25 Loc: .HMGCX Attending Dr: Favian Nichols MD Ordering Physician: Favian Nichols MD Date of Service: 06/21/25 Procedure(s): US tillman al doppler Accession Number(s): [id number] cc: Spencer Stanley MD; Favian Nichols MD CLINICAL HISTORY: I1 0 - Essential (primary) hypertension Renal duplex ultrasound Comparison: None provided Technique: Real time duplex ultrasound imaging was performed by the campus administrative assistant. Multipl e signs and displays sales representative static images were saved for [...] 06/23/25 1203 DD/ 1248 TD/TT: 06/21/25 1248 Wood Grainer: US renal BI Reviewed date:06/21/2025 02:03:56 PM Interpretation: Performing Lab: Notes/Report: [facility] [address] [place] [address] [place] [address] Ultrasound Report Signed Patient: Maday Arboleda MR#: [id number] : 1950 Acct:[id number] Age/Sex: 74 / F ADM Date: 06/21/25 Loc: HO.HMGCX Attending Dr: Favian Nichols MD Ordering Physician: Favian Nichols MD Date of Service: 06/21/25 Procedure(s): US renal BI Accession Number(s): [id number] cc: Spencer Stanley MD; Favian Nichols MD CLINICAL HISTORY: I10 - Essential (primary) hypertension Renal duplex ultrasound Comparison: None provided Technique: Real time duplex ultrasound imaging was performed by the campus administrative assistant. Multiple signs and displays sales representative static images were saved for [...] 06/21/25 1248 DD/ 1248 TD/TT: 06/21/25 1248 Wood Grainer: [facility] [address] [place] [address] [place] [address] Ultrasound Report Signed Patient: Maday Arboleda MR#: [id number] : 1950 Acct:[id number] Age/Sex: 74 / F ADM Date: 06/21/25 Loc: .HMGCX Attending Dr: Favian Nichols MD Ordering Physician: Favian Nichols MD Date of Service: 06/21/25 Procedure(s): US primo Andrews Accession Number(s): [id number] cc: Spencer Stanley MD; Favian Nichols MD CLINICAL HISTORY: I1 0 - Essential (primary) hypertension Renal duplex ultrasound Comparison: None provided Technique: Real time duplex ultrasound imaging was performed by the campus administrative assistant. Multipl e signs and displays sales representative static images were saved for [...] 06/21/25 1248 DD/ 1248 TD/TT: 06/21/25 1248 Wood Grainer: Electrolytes Reviewed date:07/26/2025 05:56:50 PM Interpretation: Performing Lab:[address] [address] Notes/Report: Sodium 132 135-145 mmol/L Potassium 4.6 3.3-5.1 mmol/L Chloride 101 96-108 mmol/L Carbon Dioxide 27 22-29 mmol/L Anion Gap 9 12-20 Blood Urea Nitrogen Reviewed date:07/26/2025 05:55:48 PM Interpretation: Performing Lab:[facility], [address] [place] [phone] Notes/Report: Blood Urea Nitrogen 16 9-16 mg/dL Creatinine Reviewed date:07/26/2025 05:55:31 PM Interpretation: Performing Lab:[facility], [address] [place] [phone] Notes/Report: Creatinine 0.69 0.5-1.4 mg/dL Estimated Glomerular Filt Rate > 60 Chronic Kidney Disease: Estimated GFR < 60 mL/min/1.73m2 Severe Kidney Disease: Estimated GFR < 15 mL/min/1.73m2 Reason For Referral No Information Medications Medication [...] as needed Orally every 8 hrs Not-Taking Valsartan 320 MG 1 tablet Orally Once a day for 30 days Active Carvedilol 12.5 MG 1 tab Orally Twice a day Active Finacea 15 % 1 application Externally [...] High Dose IM Intramuscular 07/22/2024 Administer ed Influenza High Dose IM Intramuscular 09/01/2025 Administer ed DECLINED, FLU Unknown 09/25/2014 Refused [...] Problem Status W/U Status Risk Notes Problem 54964627 Age-related osteoporosis without current pathological fracture (M81.0) Active confirmed Problem 462034974 Acute diverticulitis (K57.92) Active confirmed Problem 425918069 Reflux esophagit is (K21.00) Active confirmed Problem Vitamin D deficiency (21976774) Vitamin D deficiency (E55.9) Active confirmed Problem 242065492 Diverticulitis (K57.92) Active confirmed Problem Chronic frontal sinusitis (96452476) Chronic frontal sinusitis (J32.1) Active confirmed Problem 2672067 Diverticulitis o f large intestine without perforation or abscess without bleeding (K57.32) Active confirmed Problem 809370806 Other specified menopausal and perimenopausal disorders (N95.8) Active confirmed Problem 318370627 Lumbar disc disease (M51.9) Active confirmed Problem 215174515 Elevated LFTs (R79.89) Active confirmed Problem 436724604 Tubular adenoma of colon (D12.6) Active confirmed Problem 74863264 Essential hypertension (I10) Active confirmed Problem Osteoporosis (75618278) Osteoporosis (M81.0) Active confirmed Problem Disorder of female genital organs (077327038) Acute pelvic pain, female (N94.9) Active confirmed Problem 14644435 Oropharyngeal dysphagia (R13.12) Active confirmed Problem 57876539 Peptic ulcer disease (K27.9) Active confirmed Problem 25801427 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 confirmed Problem 952654971 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) Active confirmed Problem Macrocytosis - no anemia (010141983) Macrocytosis without anemia (D75.89) Active confirmed Vital Signs Heart Rate 60 /min 12/13/2024 weight is down 4 pounds since 1-6-25 Blood pressure diastolic 66 mm Hg 09/01/2025 Height 64 in 09/01/2025 Blood pressure systolic 138 mm Hg 09/01/2025 Weight 140 lbs 09/01/2025 BMI 24.03 kg/m2 09/01/2025 Encounters Encounter Location Date Provider Diagnosis Spencer Stanley MD [address] [place] [id number] 01/05/2025 Spencer Stanley Essential hypertensi on I10 ; Vitamin D deficiency E55.9 and Elevated LFTs R79.89 Spencer Stanely MD [address] [place] [id number] 09/22/2024 Spenceryobany Stanley Essential hypertensi on I10 and Hyponatremia E87.1 Spencer Stanley MD [address] [place] [id number] 10/13/2024 Spencer Stanley Essential hypertensi on I10 and Hyponatremia E87.1 Spencer Stanley MD [address] [place] [id number] 11/14/2024 Spencer Stanley Viral URI J06.9 Spencer Stanley MD [address] [place] [id number] 11/25/2024 Spencer Stanley Essential hypertensi on I10 Spencer Stanley MD [address] [place] [id number] 12/13/2024 Spencer Conneller Essential hypertensi on I10 and Abdominal wall pain R10.9 Spencer Stanley MD [address] [place] [id number] 01/12/2025 Spencer Stanley Essential hypertensi on I10 ; Macrocytosis without anemia D75.89 ; Elevated LFTs R79.89 ; Vitamin D deficiency E55.9 ; Colon cancer screening Z12.11 and Depression screening Z13.31 Spencer Stanley MD [address] [place] [id number] 02/23/2025 Spencer Stanley Diverticulitis K57.9 2 ; Rash R21 and Essential hypertension I10 Spencer Stanley MD [address] [place] [id number] 04/13/2025 Spencer Jaden Essential hypertensi on I10 and Bakers cyst, right M71.21 Spencer Stanley MD [address] [place] [id number] 09/01/2025 Spencer Stanley Essential hypertensi on I10 ; Age-related osteoporosis without current pathological fracture M81.0 and Encounter for administration of vaccine Z23 Spencer Stanley MD [address] [place] [id number] 01/09/2025 Spencer Stanley MD [address] [place] [id number] 01/20/2025 Spencer Stanley MD [address] [place] [id number] 02/14/2025 Spencer Stanley Assessments Encounter Date Diagnosis (ICD Code) Assessment Notes Treatment Notes Treatment Clinical Notes Section Notes 01/05/2025 Essential hypertension (ICD-10 - I10) 09/22/2024 Essential hypertension (ICD-10 - I10) doing much better/ going to see area secretary 09/22/2024 Hyponatremia (ICD-10 - E87.1) he has her on a strict fluid control, will contnue to monitor 10/13/2024 Essential hypertension (ICD-10 - I10) doing well on meds, will continue current regiment 10/13/2024 Hyponatremia (ICD-10 - E87.1) will check in few weeks 11/14/2024 Viral URI (ICD-10 - J06.9) has been getting better. will just observe. no reason for any antibiotics 11/25/2024 Essential hypertension (ICD-10 - I10) going to take the medicine as directed and call me next week if still high 12/13/2024 Essential hypertension (ICD-10 - I10) finally [...] (ICD-10 - D75.89) will continue to monitor 02/23/2025 Diverticulitis (ICD-10 - K57.92) 02/23/2025 Rash (ICD-10 - R21) came on while on augmentin but was on half dose and it went away so is not an allergy 04/13/2025 Essential hypertension (ICD-10 - I10) has just had a change in her bp meds, will continue current regiment 04/13/2025 Bakers cyst, right (ICD-10 - M71.21) THE ORDER WAS FAXED TO [facility] [place] [facility] SCHEDULING 09/01/2025 Essential hypertension (ICD-10 - I10) lacho, will contnue current regiment/ her bps are running low but her waiter and cashier did not want to change anything at [...] the meds.will leave any changes to dr nichols 09/01/2025 Age-related osteoporosis without current pathological fracture (ICD-10 - M81.0) she had been on the bisphosphenates and had side effects and is worried about any box repairer side effects on the other meds. will let her decide with her endocrine doctor 01/05/2025 Vitamin D deficiency (ICD-10 - E55.9) 01/12/2025 Elevated LFTs (ICD-10 - R79.89) stable, will continue to monitor 02/23/2025 Essential hypertension (ICD-10 - I10) having side effects with every medicine that she takes and is making adjustments of her own and is difficult to get her bp controlled. to see waiter and cashier again 09/01/2025 Encounter for administration of vaccine (ICD-10 - Z23) 01/05/2025 Elevated LFTs (ICD-10 - R79.89) 01/12/2025 Vitamin D deficiency (ICD-10 - E55.9) lacho, will continue current regiment and will continue [...] w/rflx Cult 01/05/2025 Next Appt Details Provider Name:Spenceryobany Mccullough ier, 11/06/2025 01:45:00 PM, [address] [place] [address], [address], [phone], Provider Name:Spenceryobany Mccullough ier, 01/08/2026 07:30:00 AM, [address] [place] [address], [place] [address], [place], [place], [phone], Provider Name:Spencer Mccullough ier, 01/15/2026 09:30:00 AM, [address] [place] [address], [address], [phone], Insurance Providers Payer Name Payer Address Payer Phone Subscriber Number Group Number Insured Name Patient Relationship to Insured Coverage Start Date Coverage End Date MEDICARE [employer] [address] [place] [address] [id number] Maday Arboleda Self - patient is the insured [employer] [place] [address] [place] [address] [phone] [id number] Maday Arboleda Self - patient is the insured Medical (General) History Medical History History ICD Code can tolerate doxycycline without difficu lty Refuses flu [id number] colonoscopy 04/2009 - adenoma due in 5 years for upper and lower; colonoscopy and endo done 02/01/[address] Willis (repeat 01/2020) hysterectomy (has one ovary); no paps on ly pelvic exam Tinnitus of left ear colonoscopy done 04/29, due in 5 years
== END 2025-09-22 15:05 | disposition home or self-care (01) ==
LOC: HO.HKA 13:56
PROVIDERS: PCP Internal Medicine; Visit Provider Internal Medicine Nephrology
DX: I10 Essential (primary) hypertension (principal); E87.1 Hypo-osmolality and hyponatremia
CPT/HCPCS: 99214

== ENCOUNTER → 2025-09-22 13:56 | Outpatient (BNVA) | payer MEDICARE, SELFPAY | PROVIDERS: PCP Internal Medicine; Visit Provider Internal Medicine Nephrology | DX: I10 Essential (primary) hypertension (principal); E87.1 Hypo-osmolality and hyponatremia; Z87.891 Personal history of nicotine dependence | CPT/HCPCS: 99212 ==

== ENCOUNTER 2025-10-12 11:07 | Outpatient (REF) | payer MEDICARE, SELFPAY ==
[2025-10-12 14:15] LABS: Anion Gap 11 (12-20); Blood Urea Nitrogen 18 mg/dL (9-16); Carbon Dioxide 26 mmol/L (22-29); Chloride 103 mmol/L (96-108); Estimated Glomerular Filt Rate > 60; Potassium 4.1 mmol/L (3.3-5.1); Sodium 136 mmol/L (135-145)
== END 2025-10-12 11:08 | disposition home or self-care (01) ==
LOC: HO.10HDL 11:07
PROVIDERS: Visit Provider Internal Medicine Nephrology
DX: I10 Essential (primary) hypertension (principal); E87.1 Hypo-osmolality and hyponatremia
CPT/HCPCS: 36415; 80051; 82565; 84520

== ENCOUNTER 2025-10-18 13:50 | Outpatient (AMB) | payer MEDICARE, SELFPAY ==
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
--- NOTE | 2025-10-18 13:59 | HO.NEPHOV ---
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 She is known to hypertension for a while and has been on hydrochlorothiazide bit she had been taking regularly without much side effects. She also is known to renal calculi. Her blood pressure started getting fluctuant, more so after COVID infection. She had to come off hydrochlorothiazide given hyponatremia, which has normalized now. Subsequently she was started on valsartan and the dose of which was maximized now. She had been tolerating that without much side effects. Her blood pressure control continued to be suboptimal with intermittent resting tachycardia and chest pressure symptoms without any reason. She was started on metoprolol of the time but she developed emotional lability as well as tiredness and it was discontinued. She has been started on 2.5 mg amlodipine at that time. She has been having some headache/ foggy head which she was attributing to amlodipine. She is not known to have any underlying thyroid disorders. She has no history of renal failure, liver disease or heart failure. She denied any diagnosis of depression but gets anxious at times. She is not known to have any hyperkalemia, edema. She denies drinking excessive fluid or alcohol. She has no history of any malignancy. Diltiazem was eventually added to the regimen but she was not tolerating the higher dose. Dose was reduced recently and she felt better but still complaining about ringing in the ear and variety of symptoms intermittently . She has seen cardiology. Her dose of short acting Diltiazem was adjusted at the last visit. She still C/O unexplainable intermittent inconsistent symptoms which she tries to attribute to BP medications. She feels that some of her symptoms are due to Diltiazem. Her BP is better and her symptoms are better after cutting back on Diltiazem and when Spironolactone has been introduced. Doppler of renal arteries showed right renal artery significant stenosis greater than 60% with no apparent stenosis of left renal artery & mildly elevated resistive indices of left renal parenchyma. Last week her BP had dropped( with development of tiredness) and her spironolactone has been cut back. She is feeling better since dose of valsartan has been adjusted. [facility] Medical History Hypertension History of kidney stones Hiatal hernia Osteoporosis GERD (gastroesophageal reflux disease) Surgical History History of blepharoplasty History of hammer toe correction Hx of hysterectomy History of esophagogastroduodenoscopy (EGD) Hx of colonoscopy Family History Mother Hypertension Kidney stone Father Cancer Social History Do you presently have visiting nurse or other home services: No Alcohol intake: never Patient Tobacco Use Status: Former Tobacco user Review of Systems Const All systems reviewed & are unremarkable except as noted in HPI and below Physical Exam Vital Signs: Last Vital Signs Pulse 84 10/18/25 14:00 BP 160/70 H 10/18/25 14:00 Pulse Ox 98 10/18/25 14:00 Oxygen Delivery Method Room Air 10/18/25 14:00 BMI result Body Mass Index 25.2 Const General: comfortable and no acute distress Orientation/consciousness: patient oriented x3 HEENT Head: Yes normocephalic Mouth: Normal oral and palatal mucosa present Eyes EOM: EOMs intact bilaterally Neck Neck: Yes supple Resp Auscultation: clear to auscultation bilaterally Cardio Jugular venous distension: no JVD Rate: regular rate GI Palpation (GI): Soft to palpation Auscultation: normal bowel sounds General: Yes no CVA tenderness Back/Spine/Pelvis Back: no CVA tenderness Skin General skin exam: no rashes or lesions noted Neuro General: patient oriented x3 and moves all extremities Extrem General: Yes no pedal edema Results Reviewed Nephrology Results: Sodium, (135-145) 136 mmol/L 10/12/25 Potassium, (3.3-5.1) 4.1 mmol/L 10/12/25 Chloride, (96-108) 103 mmol/L 10/12/25 Carbon Dioxide, (22-29) 26 mmol/L 10/12/25 BUN, (9-16) 18 mg/dL H 10/12/25 Creatinine, (0.5-1.4) 0.65 mg/dL 10/12/25 Calcium, (8.4-10.2) 9.4 mg/dL 08/09/25 Renal US 06/21/25 Assessment & Plan Assessment & Plan (1) Hypertension: Code(s): I10 - Essential (primary) hypertension Category: Medical Qualifiers: Hypertension type: primary hypertension Qualified Code(s): I10 - Essential (primary) hypertension Plan Maday has longstanding hypertension. She did not tolerate metoprolol due to development of emotional lability. She is currently on valsartan 320 mg daily which I reduced to 160 mg( could consider to drop the dose to 80 mg at next visit) . If her blood pressure starts going up after doing that, I shall increase her valsartan to 240 mg.(she has vascular disease causing hypertension and likely has arterial stenosis in her cerebral vessels(no studies have been done yet). I asked her to keep off hydrochlorothiazide for now ( H/O Hyponatremia). She has history of renal calculi. She is off fluid restriction . She has strong family history of hypertension. (She denied any other vascular risk factors or active vascular disease). Doppler of her renal arteries showed right renal artery significant stenosis greater than 60% with no apparent stenosis of left renal artery & mildly elevated resistive indices of left renal parenchyma. For now, he can continue Valsartan 160 mg daily in the morning along with carvedilol 12.5 mg bid. She could continue Spironolactone 25 mg AM and 12.5 mg PM . She should continue low sodium in the diet. Answered all questions. Coding Level of Care Code Est Pt Level 4 (99885) Diagnoses Primary hypertension I10 Hypertension type: primary hypertension
[2025-10-18 14:00] VITALS: BP 160/70; PULSE 84; O2SAT 98; BMI 25.2
--- OUTSIDE RECORDS SUMMARY | 2025-10-18 21:28 | XMS_ITS | Clinical Summary ---
Author Organization [facility] Address [address] [address] Phone Care Team Providers Care Manufacturing Shift Supervisor Name Role Phone Spencer Stanley MD [...] file Insurance MEDICARE PART A & B [employer] MEDEX SUPPLEMENT MEDICARE PART A & B [facility] MEDEX SUPPLEMENT MEDICARE PART A & B [facility] MEDEX SUPPLEMENT MEDICARE PART A & B [employer] MEDEX SUPPLEMENT MEDICARE PART A & B [employer] MEDEX SUPPLEMENT MEDICARE PART A & B [facility] MEDEX SUPPLEMENT Care Teams Manufacturing Shift Supervisor Relationship Specialty Start Date End Date Spencer Stanley MD [address] [place] [address] [place] [address] PCP - General Internal Medicine 07/19/24 Additional Source Comments The information contained in this document represents components of the legal health record. It is not the complete legal health record.[facility]
== END 2025-10-18 14:31 | disposition home or self-care (01) ==
LOC: HO.HKA 13:51
PROVIDERS: PCP Internal Medicine; Visit Provider Internal Medicine Nephrology
DX: I10 Essential (primary) hypertension (principal)
CPT/HCPCS: 99214

== ENCOUNTER → 2025-10-18 13:50 | Outpatient (BNVA) | payer MEDICARE, SELFPAY | PROVIDERS: PCP Internal Medicine; Visit Provider Internal Medicine Nephrology | DX: I10 Essential (primary) hypertension (principal) | CPT/HCPCS: 99212 ==